=== PATIENT | male | born 1955 | race Caucasian/White ===

== ENCOUNTER → 2016-12-21 | Outpatient (CLI) | payer BC ==
[~2016-12-21] MED LIST: ASPEC81 PO; FLNIN NAE; METO25TA3 PO; NRV/10 PO; NTRGSL/4 UT; OMEP40CA PO; PANT40TA PO; RANI300T2 PO; ROSU40TA PO; VARD10TA PO
--- NOTE | 2016-12-21 12:00 | DIAGNOSTIC IMAGING REPORT ---
TESTICULAR ULTRASOUND HISTORY: Pain N50.819 Testicular [id number] COMPARISON: None. FINDINGS: Right testis: Maximum dimension 5.1 cm. Normal vascular flow. Small hydrocele. Several epididymal cysts measuring up to 9 mm. Left testis: Maximum dimension 5.0 cm. Uniform echogenicity. Normal vascular flow. Several slightly complex left epididymal cyst measuring up to 11 mm. IMPRESSION: 1. Normal testicular ultrasound. 2. Bilateral epididymal cysts measuring up to 11 mm. 3. Normal vascular flow is present in both testis Electronically signed by: Delvin Boone M.D. 12/21/2016 11:58 AM Dictated Date/Time: 12/21/2016 11:54 AM
== END | disposition home or self-care (01) ==
LOC: C.ULTR 10:58
PROVIDERS: ATTEND Nurse Practitioner Adult Health
DX: N50.819 Testicular pain, unspecified (principal); N50.3 Cyst of epididymis

== ENCOUNTER 2022-05-21 19:03 | Inpatient (IN) ==
[2022-05-21] MEDS ORDERED: ACETAMINOPHEN 500 MG TAB PO PRN (19:10)
--- NOTE | 2022-05-21 19:27 | XRay Report ---
XR chest 1V portable HISTORY: Fever COMPARISON: Chest 08/30/2021. FINDINGS: No pneumothorax. No pleural effusions. The lungs are clear. The cardiac silhouette is top n ormal in size. No evidence for pulmonary edema. No focal lung consolidations to suggest pneumonia. Th ere are old, healed left-sided rib fractures again noted. IMPRESSION: No acute process. ACT 112: Negative or not required by law. Electronically signed by: Candido Louie M.D. 05/21/2022 7:26 PM
[2022-05-21 19:56] LABS: Hematocrit (blood only) 42.3 % (40.1-51.0); Hemoglobin 14.7 g/dl (14.0-18.0); Mean Corpuscular Hemoglobin 29.7 pg (25.0-34.0); Mean Corpuscular Hgb Conc 34.8 g/dL (32.0-36.0); Mean Corpuscular Volume 85.5 fL (80.0-100.0); Mean Platelet Volume 11.6 fL (9.4-12.4); Platelet Count 231 K/uL (130-400); RDW Coefficient of Variation 12.8 % (11.5-14.5); RDW Standard Deviation 39.4 fL (36.4-46.3); Red Blood Count 4.95 M/uL (4.63-6.08); White Blood Count 22.35 K/ul (4.8-10.8)
--- NOTE | 2022-05-21 20:13 | Emergency Department Note ---
History of Present Illness General Chief complaint: Fever Stated complaint: FEVER, CHILLS, ACHES, FLANK PAIN Time Seen by Provider: 05/21/22 19:56 Source: patient Mode of arrival: ambulatory Limitations: no limitations History of Present Illness Maximum Pain Intensity: 8 THis is a 66 yo male who presents to the emergency room with complaints of abdominal pain, fevers and chilld. Patient states he had mild discomfort yesterday. Today he ate breakfast and then had more severe abdominal pain. He states worse pain the lower abdomen. He than became nauseated and vomited. Denies hematemesis. Then he developed chills with tremors. Brief episode of left sided chest pain that resolved spontaneously. states temp at home peaked at 103 F. No know sick contacts, no change in medications, no recent travel. No concern for food poisoning. Patient no prior similar episodes. He states he has had prior hernia surgery and episode of diverticulitis. Pt seen during a time of high acuity and national emergency pandemic while wearing PPE. Home Medications Medication Instructions Recorded Confirmed Type amlodipine 5 mg tablet 5 mg PO DAILY 05/21/22 05/22/22 History aspirin 81 mg tablet,delayed 162 mg PO DAILY 05/21/22 05/22/22 History release [id number] 250 1 tab PO Q6H PRN Migraine Headache 05/21/22 05/22/22 History mg-250 mg-65 mg tablet (Excedrin Migraine) baclofen 10 mg tablet 10 mg PO HS PRN Pain 05/21/22 05/22/22 History clopidogrel 75 mg tablet (Plavix) 75 mg PO DAILY 05/21/22 05/22/22 History cyclobenzaprine 10 mg tablet 10 mg PO BID PRN Muscle Spasm 05/21/22 05/22/22 H istory docusate sodium 100 mg tablet 100 mg PO QAM 05/21/22 05/22/22 History famotidine 20 mg tablet 20 mg PO BID 05/21/22 05/22/22 History fluticasone propionate 50 2 spray intranasal DAILY PRN 05/21/22 05/22/22 History mcg/actuation nasal allergies spray,suspension (Flonase Allergy Relief) losartan 25 mg tablet 25 mg PO DAILY 05/21/22 05/22/22 History metoprolol succinate 25 mg 12.5 mg PO QPM 05/21/22 05/22/22 History tablet,extended release 24 hr metoprolol succinate 25 mg 25 mg PO DAILY 05/21/22 05/22/22 History tablet,extended release 24 hr multivitamin 1 tab PO DAILY 05/21/22 05/22/22 History nitroglycerin 0.4 mg sublingual 0.4 mg sublingual DIRECTED 05/21/22 05/22/22 History tablet (Nitrostat) omega-3 fatty acids 1,000 mg 1,000 mg PO BID 05/21/22 05/22/22 History capsule ondansetron HCl 4 mg tablet 4 mg PO Q8H PRN Nausea 05/21/22 05/22/22 History pantoprazole 40 mg tablet,delayed 40 mg PO DAILY 05/21/22 05/22/22 History release rosuvastatin 40 mg tablet 40 mg PO DAILY 05/21/22 05/22/22 History sildenafil 50 mg tablet 50 mg PO DAILY PRN Before 05/21/22 05/22/22 History intercourse hydrochlorothiazide 25 mg tablet 25 mg PO DAILY 05/22/22 05/22/22 History azithromycin 500 mg tablet 500 mg PO DAILY #3 tabs 05/23/22 Rx (Zithromax) Allergies Allergy/AdvReac Type Severity Reaction Status Date / Time morphine Allergy Severe ILL Unverified 05/21/22 20:34 tetracycline Allergy Mild RASH Verified 05/21/22 20:34 codeine Allergy Unknown Unknown Verified 05/21/22 20:34 shrimp AdvReac Mild NECK Verified 05/21/22 20:34 SWELLS IF HE EATS ALOT OF THEM enalapril AdvReac Cough Verified 05/21/22 20:34 Past Med/Surg History Medical History (Updated 05/23/22 @ 18:34 by Tiff Bartholomew DO) Coronary artery disease Hyperlipidemia Hypertension Surgical History History of coronary artery stent placement Family History Other Family history non-contributory Social History Smoking Status: Never smoker Hx Alcohol Use: No Hx Substance Use: No Preferred Language: Polish Communication Ability: Effective Teacher Learning Disabled Required: No Beliefs That Will Affect Care: None Current Living Situation: Spouse Other Information That Helps Us Care for You: No Feels Safe at Home: Yes Safety Concerns: Feels Safe At This Time Assistive Devices: None Review of Systems A total of 10 systems reviewed and were otherwise negative All systems reviewed & are unremarkable except as noted in HPI & below Physical Exam Vital Signs Vital Signs - 24 hr 05/21/22 19:05 05/21/22 20:20 05/21/22 20:20 Temperature 38.0 C H Temperature Source Temporal Artery Scan Pulse Rate 111 H 90 Pulse Rate [Finger] 90 Pulse Rhythm Regular Pulse Rhythm [Finger] Regular Pulse Strength [Finger] Normal Respiratory Rate 18 18 16 Respiratory Effort / Characteristics Non-Labored Spontaneous Respiratory Depth Normal Normal Blood Pressure 118/72 Blood Pressure [Right Arm] Blood Pressure Mean 87 Blood Pressure Mean [Right Arm] Blood Pressure Position [Right Arm] Sitting Pulse Oximetry 93 94 94 Oxygen Delivery Method Room Air Room Air Room Air Sepsis Recent Fever Within 48 Hours Yes Sepsis New/Unexplained Change in Mental Status N/A Sepsis Action Taken by Nursing No Action Required 05/21/22 21:03 05/21/22 21:47 05/21/22 22:33 Temperature 37.1 C 37.1 C Temperature Source Oral Oral Pulse Rate Pulse Rate [Finger] 91 H 97 H 97 H Pulse Rhythm Pulse Rhythm [Finger] Regular Regular Regular Pulse Strength [Finger] Respiratory Rate 18 24 20 Respiratory Effort / Characteristics Respiratory Depth Normal Normal Normal Blood Pressure Blood Pressure [Right Arm] 135/80 135/80 115/76 Blood Pressure Mean Blood Pressure Mean [Right Arm] 98 98 89 Blood Pressure Position [Right Arm] Semi-fowlers Pulse Oximetry 95 93 98 Oxygen Delivery Method Room Air Room Air Room Air Sepsis Recent Fever Within 48 Hours Sepsis New/Unexplained Change in Mental Status Sepsis Action Taken by Nursing 05/21/22 23:16 Temperature Temperature Source Pulse Rate Pulse Rate [Finger] 94 H Pulse Rhythm Pulse Rhythm [Finger] Pulse Strength [Finger] Respiratory Rate 16 Respiratory Effort / Characteristics Respiratory Depth Blood Pressure Blood Pressure [Right Arm] 110/68 Blood Pressure Mean Blood Pressure Mean [Right Arm] 82 Blood Pressure Position [Right Arm] Pulse Oximetry 96 Oxygen Delivery Method Room Air Sepsis Recent Fever Within 48 Hours Sepsis New/Unexplained Change in Mental Status Sepsis Action Taken by Nursing GENERAL: alert, well appearing, well nourished, no distress, non-toxic EYE EXAM: normal conjunctiva, PERRL and EOM's grossly intact OROPHARYNX: no exudate, no erythema, lips, buccal mucosa, and tongue normal and mucous membranes are moist NECK: supple, no nuchal rigidity, no adenopathy, non-tender LUNGS: Clear to auscultation. Normal chest wall mechanics, no w/r/r HEART: no murmurs, S1 normal and S2 normal ABDOMEN: abdomen soft, non-tender, normo-active bowel sounds, no masses, no rebound or guarding. BACK: Back is symmetrical on inspection and there is no deformity, no midline tenderness, no CVA tenderness. SKIN: no rashes and no bruising UPPER EXTREMITIES: upper extremities are grossly normal. FROM, nml pulses b/l. LOWER EXTREMITIES: No pitting edema. FROM, nml pulses b/l. NEURO EXAM: Normal sensorium, cranial nerves II-XII grossly intact, normal speech, no gross weakness of arms, no gross weakness of legs. Gross sensation intact. Course Administered Medications Discontinued Medications Acetaminophen (Acetaminophen 500 Mg Tab) 1,000 mg PO ONCE PRN PRN Reason: Fever Stop: 06/20/22 19:09 Last Admin: 05/21/22 19:28 Dose: 1,000 mg Documented By: VICK Acetaminophen (Acetaminophen 325 Mg Tab) 650 mg PO Q4H PRN PRN Reason: Pain or Fever Stop: 06/21/22 04:50 Last Admin: 05/22/22 05:06 Dose: 650 mg Documented By: Desmond Amlodipine Besylate (Amlodipine Besylate 5 Mg Tab) 5 mg PO [facility] Stop: 06/21/22 08:59 Last Admin: 05/23/22 09:23 Dose: 5 mg Documented By: Admin: 05/22/22 09:20 Dose: 5 mg Documented By: KIMBERLY Aspirin (Aspirin 81 Mg Ectab) 162 mg PO [facility] Stop: 06/21/22 08:59 Last Admin: 05/23/22 09:24 Dose: 162 mg Documented By: Admin: 05/22/22 09:21 Dose: 162 mg Documented By: CRYSTAL Clopidogrel Bisulfate (Clopidogrel Bisulfate 75 Mg Tab) 75 mg PO [facility] Stop: 06/21/22 08:59 Last Admin: 05/23/22 09:24 Dose: 75 mg Documented By: Admin: 05/22/22 09:21 Dose: 75 mg Documented By: KIMBERLY Docusate Sodium (Docusate Sodium 100 Mg Cap) 100 mg PO BID [facility] Stop: 06/21/22 08:59 Last Admin: 05/23/22 09:24 Dose: 100 mg Documented By: Admin: 05/22/22 20:42 Dose: 100 mg Documented By: Admin: 05/22/22 09:20 Dose: 100 mg Documented By: KIMBERLY Docusate Sodium (Docusate Sodium 100 Mg Cap) 100 mg PO QAM [facility] Stop: 06/22/22 08:59 Last Admin: 05/23/22 09:25 Dose: Not Given Documented By: KIMBERLY Enoxaparin Sodium (Enoxaparin Inj 40 Mg/0.4 Ml Syr) 40 mg SQ Q24H [facility] Stop: 06/21/22 08:59 Last Admin: 05/22/22 09:23 Dose: 40 mg Documented By: KIMBERLY Heparin Sodium (Porcine) (Heparin Sod 5,000 Unit/0.5 Ml Vial) 5,000 units SQ Q8 [facility] Stop: 06/21/22 21:59 Last Admin: 05/23/22 06:44 Dose: 5,000 units Documented By: Admin: 05/22/22 20:42 Dose: 5,000 units Documented By: NANCY Sodium Chloride (Nss 1000ml) 1,000 mls @ 999 mls/hr IV .Q1H1M ONE Stop: 05/21/22 21:27 Last Infusion: 05/21/22 23:32 Dose: 0 mls/hr Documented By: Admin: 05/21/22 20:57 Dose: 999 mls/hr Documented By: VAP Piperacillin Sod/Tazobactam Sod (Zosyn) 4.5 gm in 120 mls @ 240 mls/hr IV NOW ONE Stop: 05/21/22 21:44 Last Infusion: 05/21/22 23:32 Dose: 0 mls/hr Documented By: Admin: 05/21/22 21:41 Dose: 240 mls/hr Documented By: VAP Acetaminophen (Ofirmev) 1,000 mg in 100 mls @ 400 mls/hr IV NOW STA Stop: 05/22/22 00:12 Last Infusion: 05/22/22 00:25 Dose: 0 mls/hr Documented By: Admin: 05/22/22 00:09 Dose: 400 mls/hr Documented By: AN Sodium Chloride (Nss 1000ml) 1,000 mls @ 125 mls/hr IV .Q8H [facility] Stop: 06/20/22 23:44 Last Infusion: 05/22/22 09:15 Dose: 0 mls/hr Documented By: Admin: 05/22/22 00:08 Dose: 125 mls/hr Documented By: AN Vancomycin HCl 1,750 mg/ (Sodium Chloride) 535 mls @ 200 mls/hr IV NOW ONE Stop: 05/22/22 04:40 Last Infusion: 05/22/22 07:05 Dose: 0 mls/hr Documented By: Admin: 05/22/22 02:42 Dose: 200 mls/hr Documented By: AN Piperacillin Sod/Tazobactam (Sod 4.5 gm/ Dextrose) 120 mls @ 28.75 mls/hr IV Q8H [facility]; Protocol Stop: 05/24/22 02:29 Last Infusion: 05/23/22 14:48 Dose: 0 mls/hr Documented By: [facility] Admin: 05/23/22 10:24 Dose: 28.8 mls/hr Documented By: [facility] Infusion: 05/23/22 07:17 Dose: 0 mls/hr Documented By: [facility] Admin: 05/23/22 02:51 Dose: 28.8 mls/hr Documented By: Infusion: 05/22/22 22:36 Dose: 0 mls/hr Documented By: Admin: 05/22/22 18:26 Dose: 28.8 mls/hr Documented By: [facility] Infusion: 05/22/22 15:14 Dose: 0 mls/hr Documented By: [facility] Admin: 05/22/22 11:02 Dose: 28.8 mls/hr Documented By: [facility] Infusion: 05/22/22 07:54 Dose: 0 mls/hr Documented By: [facility] Admin: 05/22/22 02:46 Dose: 28.8 mls/hr Documented By: AN Vancomycin HCl 1,250 mg/ (Sodium Chloride) 275 mls @ 200 mls/hr IV Q18H [facility] Stop: 05/24/22 11:59 Last Infusion: 05/22/22 13:56 Dose: 0 mls/hr Documented By: Admin: 05/22/22 12:28 Dose: 200 mls/hr Documented By: KIMBERLY Sodium Chloride (Nss 1000ml) 1,000 mls @ 125 mls/hr IV .Q8H [facility] Stop: 06/21/22 15:59 Last Infusion: 05/23/22 08:42 Dose: 0 mls/hr Documented By: Admin: 05/23/22 07:31 Dose: 125 mls/hr Documented By: Infusion: 05/23/22 07:31 Dose: 125 mls/hr Documented By: Admin: 05/22/22 23:32 Dose: 125 mls/hr Documented By: Infusion: 05/22/22 23:32 Dose: 125 mls/hr Documented By: Admin: 05/22/22 16:10 Dose: 125 mls/hr Documented By: KIMBERLY Ioversol (Optiray 300 500ml) 100 ml IV ONCE ONE Stop: 05/21/22 22:53 Last Admin: 05/21/22 22:52 Dose: 92 ml Documented By: JOSR Melatonin (Melatonin 3 Mg Tab) 9 mg PO HS PRN PRN Reason: Sleep Stop: 06/21/22 19:12 Last Admin: 05/22/22 22:29 Dose: 9 mg Documented By: NANCY Metoprolol Succinate (Metoprolol Succ 25mg Ext Rel Tab) 12.5 mg PO QPM [facility] Stop: 06/21/22 20:59 Last Admin: 05/22/22 20:42 Dose: 12.5 mg Documented By: NANCY Metoprolol Succinate (Metoprolol Succ 25mg Ext Rel Tab) 25 mg PO QAM [facility] Stop: 06/21/22 08:59 Last Admin: 05/23/22 09:25 Dose: Not Given Documented By: Admin: 05/22/22 09:22 Dose: Not Given Documented By: KIMBERLY Rosuvastatin Calcium (Rosuvastatin Calcium 20 Mg Tab) 40 mg PO QAM [facility] Stop: 06/21/22 08:59 Last Admin: 05/23/22 09:25 Dose: Not Given Documented By: Admin: 05/22/22 10:14 Dose: Not Given Documented By: KIMBERLY Medical Decision Making Differential Diagnosis Differential diagnoses includes but is not limited to gastritis, peptic ulcer disease, GERD, gallbladder disease, pancreatitis, small bowel obstruction, acute coronary syndrome, pericarditis, ischemic bowel, irritable bowel disease, irritable bowel syndrome, appendicitis, diverticulitis, malignancy, hernia, urinary tract infection, torsion, [/ectopic (if female)], perforation, trauma, infectious. Medical Records Attestation: I reviewed the patient's medical records. Home Medications Current Medication List: was personally reviewed by me Laboratory Data Attestation: I reviewed the patient's lab results. Result diagrams: 05/23/22 06:53 05/23/22 06:53 Lab Results 05/21/22 05/21/22 05/21/22 Range/Units 19:29 19:39 19:39 WBC 22.35 H (4.8-10.8) K/ul RBC 4.95 (4.63-6.08) M/uL Hgb 14.7 (14.0-18.0) g/dl Hct 42.3 (40.1-51.0) % MCV 85.5 (80.0-100.0) fL MCH 29.7 (25.0-34.0) pg MCHC 34.8 (32.0-36.0) g/dL RDW Std Deviation 39.4 (36.4-46.3) fL RDW Coeff of Mary 12.8 (11.5-14.5) % Plt Count 231 (130-400) K/uL MPV 11.6 (9.4-12.4) fL Immature Gran % (Auto) 0.4 % Neut % (Auto) 89.9 % Lymph % (Auto) 2.4 % Sunflower % (Auto) 6.8 % Eos % (Auto) 0.2 % Baso % (Auto) 0.3 % Neut # (Auto) 20.09 H (1.4-6.5) K/uL Lymph # (Auto) 0.54 L (1.2-3.4) K/uL Sunflower # (Auto) 1.52 H (0.24-0.82) K/uL Eos # (Auto) 0.04 (0-0.50) K/uL Baso # (Auto) 0.06 (0-0.2) K/uL Immature Gran # (Auto) 0.10 H (0.00-0.02) K/uL Sodium 135 L (136-145) mmol/L Potassium 3.6 (3.5-5.1) mmol/L Chloride 100 (98-107) mmol/L Carbon Dioxide 24 (21-32) mmol/L Anion Gap 11 (3-11) BUN 33 H (6-23) mg/dl Creatinine 1.39 (0.6-1.4) mg/dl Est Cr Clr Drug Dosing 57.5 ml/min Est GFR ( Amer) 59.9 ml/min Est GFR (Non-Af Amer) 51.7 ml/min BUN/Creatinine Ratio 23.7 H (10-20) Glucose 101 H (70-99(Fasting)) mg/dl Lactate (0.4-2.0) mmol/L Calcium 9.4 (8.5-10.1) mg/dl Total Bilirubin 0.9 (0.2-1.0) mg/dl AST 23 (13-39) U/L ALT 23 (7-52) U/L Alkaline Phosphatase 65 (34-104) U/L Total Protein 7.1 (6.0-8.3) gm/dl Albumin 4.5 (3.4-5.0) gm/dl Globulin 2.6 (2.5-4.0) gm/dl Albumin/Globulin Ratio 1.7 (0.9-2) Lipase (11-82) U/L Procalcitonin (0-0.5) ng/ml SARS-CoV-2 (PCR) NEGATIVE (Negative) Influenza Type A (PCR) Negative (Neg) Influenza Type B (PCR) Negative (Neg) RSV (RT-PCR) Negative (Neg) 05/21/22 05/21/22 05/21/22 Range/Units 19:39 19:39 21:13 WBC (4.8-10.8) K/ul RBC (4.63-6.08) M/uL Hgb (14.0-18.0) g/dl Hct (40.1-51.0) % MCV (80.0-100.0) fL MCH (25.0-34.0) pg MCHC (32.0-36.0) g/dL RDW Std Deviation (36.4-46.3) fL RDW Coeff of Mary (11.5-14.5) % Plt Count (130-400) K/uL MPV (9.4-12.4) fL Immature Gran % (Auto) % Neut % (Auto) % Lymph % (Auto) % Sunflower % (Auto) % Eos % (Auto) % Baso % (Auto) % Neut # (Auto) (1.4-6.5) K/uL Lymph # (Auto) (1.2-3.4) K/uL Sunflower # (Auto) (0.24-0.82) K/uL Eos # (Auto) (0-0.50) K/uL Baso # (Auto) (0-0.2) K/uL Immature Gran # (Auto) (0.00-0.02) K/uL Sodium (136-145) mmol/L Potassium (3.5-5.1) mmol/L Chloride (98-107) mmol/L Carbon Dioxide (21-32) mmol/L Anion Gap (3-11) BUN (6-23) mg/dl Creatinine (0.6-1.4) mg/dl Est Cr Clr Drug Dosing ml/min Est GFR ( Amer) ml/min Est GFR (Non-Af Amer) ml/min BUN/Creatinine Ratio (10-20) Glucose (70-99(Fasting)) mg/dl Lactate 0.9 (0.4-2.0) mmol/L Calcium (8.5-10.1) mg/dl Total Bilirubin (0.2-1.0) mg/dl AST (13-39) U/L ALT (7-52) U/L Alkaline Phosphatase (34-104) U/L Total Protein (6.0-8.3) gm/dl Albumin (3.4-5.0) gm/dl Globulin (2.5-4.0) gm/dl Albumin/Globulin Ratio (0.9-2) Lipase 36 (11-82) U/L Procalcitonin 0.63 H (0-0.5) ng/ml SARS-CoV-2 (PCR) (Negative) Influenza Type A (PCR) (Neg) Influenza Type B (PCR) (Neg) RSV (RT-PCR) (Neg) Imaging Data Radiologist's Impression: Chest X-Ray 05/21/22 19:11 XR chest 1V portable HISTORY: Fever COMPARISON: Chest 08/30/2021. FINDINGS: No pneumothorax. No pleural effusions. The lungs are clear. The cardiac silhouette is top normal in size. No evidence for pulmonary edema. No focal lung consolidations to suggest pneumonia. There are old, healed left-sided rib fractures again noted. IMPRESSION: No acute process. ACT 112: Negative or not required by law. Electronically signed by: Candido Louie M.D. 05/21/2022 7:[address] abdomen and pelvis with contrast: Mild bilateral lower lobe atelectasis. Normal cardiac size with coronary artery calcifications. Normal liver, gallbladder and biliary system. Normal pancreas, spleen and bilateral adrenal glands. Multiple bilateral simple renal cysts, largest on the right measuring 4.3 cm in maximum dimension and largest on the left measuring 4.5 cm. Otherwise unremarkable bilateral kidneys. Atherosclerotic disease of aorta with no aneurysm. Unremarkable stomach and small bowel. Normal appendix. Moderate to abundant fecal deep within the colon, cannot do so mild constipation. No bowel obstruction. Unremarkable urinary bladder. Mild prostate enlargement. No free fluid. Degenerative disease of the spine. Radiologist: Sudha Kaur MD ECG Data Attestation: I personally reviewed and interpreted this ECG as follows: Indication: + abdominal pain Rate (beats per minute): 99 Rhythm: + normal sinus ECG Intervals/blocks: + Normal QRS and + Normal QT ECG [place]: + Normal ECG ST segments: + Nonspecific ST abnormalities MDM Narrative An order was placed for continuous cardiac monitoring. The monitor shows a rate of __88_ with _normal sinus__ rhythm. This is a 84 yo male who presents with abdominal pain, fevers, rigors and vomiting. Labs sent initially by nursing staff per protocol. After my evaluation I added additional and we discussed imaging. There was some delay in patient going to CT as he presented on a day of high volume. VS stable. Fever improved with tylenol. Significant leukocytosis noted, so patient given zosyn empirically while awaiting CT. Procal also elevated. CT read by overnight rad without acute infectious/inflammatory condition. Given abnormalities on labs and concerning evolution of symptoms, case discussed with hospitalist for additional evaluation and treatment. Impression & Plan Abdominal pain, Leukocytosis, Fever, Elevated procalcitonin Discharge Plan Visit Data Chief Complaint: Fever Stated Complaint: FEVER, CHILLS, ACHES, FLANK PAIN ED Provider: Tiff Bartholomew Discharge Problem: Abdominal pain, Leukocytosis, Fever, Elevated procalcitonin Patient Disposition: Admitted As Inpatient Discharge Instructions Interventions: ED Discharge Assessment Last Done: 05/22/22 03:56
[2022-05-21 20:15] LABS: Basophils # (auto) 0.06 K/uL (0-0.2); Basophils % (auto) 0.3 %; Eosinophils # (auto) 0.04 K/uL (0-0.50); Eosinophils % (auto) 0.2 %; Immature Granulocytes % (auto) 0.4 %; Lymphocytes # (auto) 0.54 K/uL (1.2-3.4); Lymphocytes % (auto) 2.4 %; Monocytes # (auto) 1.52 K/uL (0.24-0.82); Monocytes % (auto) 6.8 %; Neutrophils # (auto) 20.09 K/uL (1.4-6.5); Neutrophils % (auto) 89.9 %
[2022-05-21 20:19] LABS: Albumin Globulin Ratio 1.7 (0.9-2); Albumin Level 4.5 gm/dl (3.4-5.0); BUN Creatinine Ratio 23.7 (10-20); Bilirubin,Total 0.9 mg/dl (0.2-1.0); Calcium 9.4 mg/dl (8.5-10.1); Creatinine Clr Calc Pharmacy 57.5 ml/min; Est GFR (African American) 59.9 ml/min; Est GFR (Non-African American) 51.7 ml/min; Globulin 2.6 gm/dl (2.5-4.0); Potassium 3.6 mmol/L (3.5-5.1); Total Protein 7.1 gm/dl (6.0-8.3)
[2022-05-21] MEDS ORDERED: SODIUM CHLORIDE 0.9% 1000ML 1,000 ML IV ONE (20:27)
[2022-05-21 20:41] LABS: Influenza A virus by PCR Negative (Neg); Influenza B virus by PCR Negative (Neg); RSV by PCR Negative (Neg); SARS CoV2 RNA(COVID-19) InHosp NEGATIVE (Negative)
[2022-05-21] MEDS ORDERED: PIPERACILLIN/TAZOBACTAM 4.5 GM/120 ML BAG IV ONE (21:15)
[2022-05-21] MEDS ORDERED: OPTIRAY 300 500mL IV ONE (22:52)
[2022-05-21] MEDS ORDERED: SODIUM CHLORIDE 0.9% 1000ML 1,000 ML IV SCH (23:45)
[2022-05-21] MEDS ORDERED: ACETAMINOPHEN 1,000 MG/100 ML VIAL IV STA (23:58)
[2022-05-22] MEDS ORDERED: POLYETHYLENE (MIRALAX) 17 GM PACK PO PRN (01:33)
[2022-05-22] MEDS ORDERED: NITROGLYCERIN SL 0.4 MG/TAB TAB SL PRN (01:36)
[2022-05-22] MEDS ORDERED: VANCOMYCIN CONSULT ACTIVE PRN (01:39)
[2022-05-22] MEDS ORDERED: VANCOMYCIN HCL 1,750 MG in SODIUM CHLORIDE 0.9% 500 ML IV ONE (02:00)
[2022-05-22] MEDS ORDERED: PIPERACILLIN/TAZOBACTAM 3.375 GM in DEXTROSE 5% 100 ML IV SCH (02:00)
--- NOTE | 2022-05-22 02:22 | History & Physical Report ---
Date of Service May 22, 2022 Assessment & Plan (1) Sepsis: Plan: - patient with fever to 38C, WBC 22, PCT 0.64, HR 90s - reports decreased appetite, rigors, fevers, fatigue - unclear source at this time - CXR unremarkable, no urinary, pulmonary, GI symptoms besides one episode of vomiting and abdominal pain - dehydrated on exam - lactic acid 0.9 - blood cultures sent - UA pending - s/p zosyn in ED - continue empiric abx with vancomycin and zosyn for now pending cultures - trend fever curve (2) Leukocytosis: Plan: - likely from infection in the setting of fever as above - management as above - trend for now (3) CAD S/P percutaneous coronary angioplasty: Plan: - stable angina - has exertional angina at times relieved by SL Nitro - follows with cardiology - continue ASA, plavix, statin - not current with chest pain (4) HTN (hypertension): Plan: - continue home medications Plan DVT ppx: lovenox Code Status: Full Code Dispo: med/surg Inocencio Jeffries MD Hospital Medicine Admission and Anticipated Discharge Date Admission Date: 05/22/2022 History of Present Illness Chief Complaint: fever Primary Care Provider: Sabino Izaguirre MD The patient is a 66 year old man with pmh CAD s/p stents x2 (~2011), HTN, HLD who presented with 1 day of fevers and rigors with abdominal pain. He reports that he started having crampy abdominal pain about 2-3 days ago. He then de veloped fever and rigors the day of presentation. He was noted to also have had one episode of vomiting the day of admission. He denies any blood in his vomit, he denies diarrhea, cough, shortness of breath, chest pain, sore throat, congestion, wounds, rashes, dysuria, frequency. The abdominal pain is diffuse but mostly concentrated in the lower quandrants. Not affected by BMs. Normal functional status is good, works around his house. 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 In the ED, vitals were significant for temp to 38C, HR 90s. Labs were significant for WBC 22,PCT 0.63, lactic acid 0.9. CXR was unrevealing, CT-AP was also unremarkable on prelim read. Blood cultures were drawn, he was given a dose of zosyn and IVF and admitted to medicine. Allergies Allergy/AdvReac Type Severity Reaction Status Date / Time morphine Allergy Severe ILL Unverified 05/21/22 20:34 tetracycline Allergy Mild RASH Verified 05/21/22 20:34 codeine Allergy Unknown Unknown Verified 05/21/22 20:34 shrimp AdvReac Mild NECK Verified 05/21/22 20:34 SWELLS IF HE EATS ALOT OF THEM enalapril AdvReac Cough Verified 05/21/22 20:34 Home Medications Medication Instructions Recorded Confirmed Type amlodipine 5 mg tablet 5 mg PO DAILY 05/21/22 05/21/22 History aspirin 81 mg tablet,delayed 162 mg PO DAILY 05/21/22 05/21/22 History release ovndunp-vismhgcwfjjup-stxhbatf 250 1 tab PO Q6H PRN Migraine Headache 05/21/22 05/21/22 History mg-250 mg-65 mg tablet (Excedrin Migraine) baclofen 10 mg tablet 10 mg PO HS 05/21/22 05/21/22 History clopidogrel 75 mg tablet (Plavix) 75 mg PO DAILY 05/21/22 05/21/22 History cyclobenzaprine 10 mg tablet 10 mg PO BID PRN Muscle Spasm 05/21/22 05/21/22 History docusate sodium 100 mg tablet 100 mg PO QAM 05/21/22 05/21/22 History famotidine 20 mg tablet 20 mg PO BID 05/21/22 05/21/22 History fluticasone propionate 50 2 spray intranasal DAILY PRN 05/21/22 05/21/22 History mcg/actuation nasal allergies spray,suspension (Flonase Allergy Relief) losartan 25 mg tablet 25 mg PO DAILY 05/21/22 05/21/22 History metoprolol succinate 25 mg 12.5 mg PO QPM 05/21/22 05/21/22 History tablet,extended release 24 hr metoprolol succinate 25 mg 25 mg PO DAILY 05/21/22 05/21/22 History tablet,extended release 24 hr multivitamin 1 tab PO DAILY 05/21/22 05/21/22 History nitroglycerin 0.4 mg sublingual 0.4 mg sublingual DIRECTED 05/21/22 05/21/22 History tablet (Nitrostat) omega-3 fatty acids 1,000 mg 1,000 mg PO BID 05/21/22 05/21/22 History capsule ondansetron HCl 4 mg tablet 4 mg PO Q8H PRN Nausea 05/21/22 05/21/22 History pantoprazole 40 mg tablet,delayed 40 mg PO DAILY 05/21/22 05/21/22 History release rosuvastatin 40 mg tablet 40 mg PO DAILY 05/21/22 05/21/22 History sildenafil 50 mg tablet 50 mg PO DAILY PRN Before 05/21/22 05/21/22 History intercourse Past Med/Surg History Medical History Coronary artery disease Hyperlipidemia Hypertension Surgical History History of coronary artery stent placement Family History Other Family history non-contributory Social History Smoking Status: Never smoker Preferred Language: Mohawk Feels Safe at Home: Yes Review of Systems Review of Systems: All systems reviewed & are unremarkable except as noted in Subjective Physical Exam Constitutional: WD/WN, vitals as above no acute distress Eyes: PERRL, conjunctivae normal, anicteric sclerae ENMT: Nose: no external nose abnormality, no nasal discharge and no sinus tenderness Mouth: + dry oral mucous membranes Neck: trachea midline, no thyromegaly Respiratory: normal respiratory effort, lungs clear to auscultation Cardiovascular: RRR, no murmur, no edema Gastrointestinal (Abdomen): Inspection/Auscultation: + abdomen distended and normal bowel sounds Percussion/Palpation: + abdomen tender (diffusely, mostly Lower quadrants - mild) and abdomen soft; no guarding and abdomen not rigid Musculoskeletal: no cyanosis or clubbing, extremities motor strength 5/5 Skin: no rashes, warm and dry Neurologic: patellar DTR's 2+ bilat, sensation intact and PERRL, EOMI, accommodation nl, no face palsy, no dysarthria Psychiatric: A+Ox3, euthymic affect Results & Data Results & Data ([facility]) Vital Signs (Past 12 Hours) Vital Signs Temp Pulse Pulse Resp BP BP Pulse Ox 05/22/22 01:00 68 16 121/61 92 09/01/22 23:16 94 H 16 110/68 96 05/21/22 22:33 37.1 C 97 H 20 115/76 98 05/21/22 21:47 97 H 24 135/80 93 05/21/22 21:03 37.1 C 91 H 18 135/80 95 05/21/22 20:20 90 16 94 05/21/22 20:20 90 18 94 05/21/22 19:05 38.0 C H 111 H 18 118/72 93 O2 Del Method 05/22/22 01:00 Room Air 05/21/22 23:16 Room Air 05/21/22 22:33 Room Air 05/21/22 21:47 Room Air 05/21/22 21:03 Room Air 05/21/22 20:20 Room Air 05/21/22 20:20 Room Air 05/21/22 19:05 Room Air Laboratory Results Short CBC 05/21/22 Range/Units 19:39 WBC 22.35 H (4.8-10.8) K/ul Hgb 14.7 (14.0-18.0) g/dl Hct 42.3 (40.1-51.0) % Plt Count 231 (130-400) K/uL BMP 05/21/22 19:39 Sodium 135 L Potassium 3.6 Chloride 100 Carbon Dioxide 24 BUN 33 H Creatinine 1.39 Glucose 101 H Calcium 9.4 Liver Function 05/21/22 Range/Units 19:39 Total Bilirubin 0.9 (0.2-1.0) mg/dl AST 23 (13-39) U/L ALT 23 (7-52) U/L Alkaline Phosphatase 65 (34-104) U/L Albumin 4.5 (3.4-5.0) gm/dl Diagnostic Findings Chest X-Ray 05/21/22 19:11 XR chest 1V portable HISTORY: Fever COMPARISON: Chest 08/30/2021. FINDINGS: No pneumothorax. No pleural effusions. The lungs are clear. The cardiac silhouette is top normal in size. No evidence for pulmonary edema. No focal lung consolidations to suggest pneumonia. There are old, healed left-sided rib fractures again noted. IMPRESSION: No acute process. ACT 112: Negative or not required by law. Electronically signed by: Candido Louie M.D. 05/21/2022 7:26 PM Medications Administered Current Inpatient Medications Amlodipine Besylate (Amlodipine Besylate 5 Mg Tab) 5 mg PO QAM [facility] Stop: 06/21/22 08:59 Aspirin (Aspirin 81 Mg Ectab) 162 mg PO QAM [facility] Stop: 06/21/22 08:59 Clopidogrel Bisulfate (Clopidogrel Bisulfate 75 Mg Tab) 75 mg PO QAM [facility] Stop: 06/21/22 08:59 Docusate Sodium (Docusate Sodium 100 Mg Cap) 100 mg PO BID [facility] Stop: 06/21/22 08:59 Enoxaparin Sodium (Enoxaparin Inj 40 Mg/0.4 Ml Syr) 40 mg SQ Q24H [facility] Stop: 06/21/22 08:59 Sodium Chloride (Nss 1000ml) 1,000 mls @ 125 mls/hr IV .Q8H [facility] Stop: 06/20/22 23:44 Last Admin: 05/22/22 00:08 Dose: 125 mls/hr Vancomycin HCl 1,750 mg/ (Sodium Chloride) 535 mls @ 200 mls/hr IV NOW ONE Stop: 05/22/22 04:40 Piperacillin Sod/Tazobactam (Sod 4.5 gm/ Dextrose) 120 mls @ 28.75 mls/hr IV Q8H [facility]; Protocol Stop: 05/24/22 02:29 Metoprolol Succinate (Metoprolol Succ 25mg Ext Rel Tab) 12.5 mg PO QPM [facility] Stop: 06/21/22 20:59 Metoprolol Succinate (Metoprolol Succ 25mg Ext Rel Tab) [facility]: 06/21/22 08:59 Miscellaneous Information (Vancomycin Consult Active) 1 each N/A UD PRN PRN Reason: Consult Stop: 06/21/22 01:38 Nitroglycerin (Nitroglycerin Sl 0.4 Mg/Tab Tab) 0.4 mg SL PRN PRN PRN Reason: chest pain Stop: 06/21/22 01:35 Polyethylene Glycol (Polyethylene (Miralax) 17 Gm Pack) 17 gm PO DAILY PRN PRN Reason: Constipation Stop: 06/21/22 01:32 Rosuvastatin Calcium (Rosuvastatin Calcium 20 Mg Tab) 40 mg PO QAM [facility] Stop: 06/21/22 08:59 Code Status & VTE Plan Code Status Full Code VTE Prophylaxis Plan VTE Prophylaxis will be ordered: Yes
[2022-05-22] MEDS: PIPERACILLIN/TAZOBACTAM 4.5 GM in DEXTROSE 5% 100 ML IV SCH ×3 (02:46→18:26)
[2022-05-22 03:07] LABS: Appearance Urine Clear (Clear); Bilirubin Urine Negative (Negative); Blood Urine Negative (Negative); Color Urine Yellow; Glucose Urine UA Negative (Negative); Ketones Urine Negative (Negative); Leukocyte Esterase Urine Negative (Negative); Nitrite Urine Negative (Negative); Protein Urine Negative (Negative); Specific Gravity Urine > 1.045 (1.000-1.030); Urobilinogen Urine Negative (Negative)
[2022-05-22] MEDS ORDERED: ACETAMINOPHEN 325 MG TAB PO PRN (04:51)
[2022-05-22 08:00] LABS: Albumin Globulin Ratio 1.7 (0.9-2); Albumin Level 3.5 gm/dl (3.4-5.0); Bilirubin,Total 0.8 mg/dl (0.2-1.0); Calcium 7.8 mg/dl (8.5-10.1); Creatinine Clr Calc Pharmacy 56.1 ml/min; Est GFR (African American) 57.9 ml/min; Globulin 2.1 gm/dl (2.5-4.0); Magnesium 1.8 mg/dl (1.7-2.4); Potassium 3.6 mmol/L (3.5-5.1); Total Protein 5.6 gm/dl (6.0-8.3)
--- NOTE | 2022-05-22 08:27 | CT Scan Report ---
CT OF THE ABDOMEN AND PELVIS WITH CONTRAST CLINICAL HISTORY: Lower abdominal pain. Fever. COMPARISON STUDY: Renal ultrasound May 31, 2006. TECHNIQUE: Following IV administration of 92 mL of Optiray, axial images of the abdomen and pelvis we re obtained from the lung bases to the proximal femurs. Images were reviewed in the axial, sagittal, and coronal planes. IV contrast was administered without complication. Automated exposure control wa s utilized for the study. A dose lowering technique was utilized adhering to the principles of ALARA . CT DOSE: 618.65 mGy.cm FINDINGS: Several small left lower lobe pulmonary nodules are likely benign. No pneumatosis, free air or portal venous gas is present. No hepatic lesions are identified. There is no biliary or pancreati c ductal dilatation. Spleen, adrenal glands and pancreas are unremarkable. There are numerous water a ttenuation bilateral renal lesions. These reflect cysts. Several subcentimeter renal lesions are too small to characterize. There is no hydronephrosis. Punctate left renal calculus is noted. There are n o ureteral calculi. Infrarenal abdominal aorta is ectatic, measuring 2.5 cm in caliber. No lymphadeno rome. No evidence for acute appendicitis. Caliber and wall thickness of small and large bowel are no rmal. There is no evidence for a bowel obstruction. Colonic diverticulosis is noted without evidence for acute diverticulitis. Prostate is mildly enlarged. No acute fracture or suspicious lesion within the visualized skeletal structures. IMPRESSION: 1. No acute process within the abdomen or pelvis. 2. No bowel obstruction. No bowel wall thickening. No evidence for acute appendicitis. 3. Numerous bilateral renal cysts. Several subcentimeter renal lesions which are too small to charact erize. 4. Mildly enlarged prostate. 5. Colonic diverticulosis. No evidence for acute diverticulitis. ACT 112: Negative or not required by law. Electronically signed by: Peter Nicole M.D. 05/22/2022 8:25 AM
[2022-05-22] MEDS ORDERED: ENOXAPARIN INJ 40 MG/0.4 ML SYR SQ SCH (09:00)
[2022-05-22 09:17] LABS: Hematocrit (blood only) 35.6 % (40.1-51.0); Hemoglobin 12.1 g/dl (14.0-18.0); Mean Corpuscular Hemoglobin 29.7 pg (25.0-34.0); Mean Corpuscular Volume 87.3 fL (80.0-100.0); Mean Platelet Volume 12.1 fL (9.4-12.4); Platelet Count 182 K/uL (130-400); RDW Coefficient of Variation 13.1 % (11.5-14.5); RDW Standard Deviation 41.1 fL (36.4-46.3); Red Blood Count 4.08 M/uL (4.63-6.08); White Blood Count 11.86 K/ul (4.8-10.8)
[2022-05-22] MEDS: amLODIPine BESYLATE 5 MG TAB PO SCH (09:20)
[2022-05-22] MEDS: DOCUSATE SODIUM 100 MG CAP PO SCH ×2 (09:20→20:42)
--- NOTE | 2022-05-22 09:20 | Pharmacy Report ---
Pharmacy PK ABX Note - Date of Service May 22, 2022 - Assessment and Plan Assessment 66 year old M receiving IV Vancomycin + Zosyn for empiric treatment of sepsis of unknown source, CXR unremarkable, no urinary, pulmonary, GI symptoms besides one episode of vomiting and abdominal pain. Febrile yesterday, 38C, WBC 22, HR 90s, Procal 0.63, Lactate 0.9. Blood cultures pending. Plan Vancomycin * Loading dose: 1750 mg IV x 1 * Maintenance dose: 1250 mg IV every 18 hours * Regimen is predicted to achieve target AUC/TRE of 400-600 mg/L.hr * Trough level to be ordered if therapy extends beyond 48 hours Zosyn 4.5g IV Q8H for CrCl > 20ml/min Pharmacy will continue to follow and will adjust dose/frequency as necessary. Thank you. Pharmacy has transitioned to AUC monitoring for vancomycin. AUC/TRE is the preferred PK/PD target and is associated with decreased risk of nephrotoxicity compared to traditional trough targets.
[2022-05-22] MEDS: ASPIRIN 81 MG ECTAB PO SCH (09:21)
[2022-05-22] MEDS: CLOPIDOGREL BISULFATE 75 MG TAB PO SCH (09:21)
[2022-05-22] MEDS: METOPROLOL SUCC 25MG EXT REL TAB PO SCH (09:22)
[2022-05-22] MEDS: ROSUVASTATIN CALCIUM 20 MG TAB PO SCH (10:14)
[2022-05-22] MEDS ORDERED: VANCOMYCIN HCL 1,250 MG in SODIUM CHLORIDE 0.9% 250 ML IV SCH (12:00)
[2022-05-22 13:19] LABS: Lyme Ab IgG w/WB Rflx Negative (Negative)
[2022-05-22 13:20] LABS: Lyme Ab IgM w/WB Rflx Negative (Negative)
[2022-05-22 13:32] LABS: Influenza A virus by PCR Negative (Neg); Influenza B virus by PCR Negative (Neg); RSV by PCR Negative (Neg); SARS CoV2 RNA(COVID-19) InHosp NEGATIVE (Negative)
[2022-05-22 13:49] LABS: Adenovirus F 40/41 PCR Not Detected (NotDetected); Astrovirus PCR Not Detected (NotDetected); Campylobacter PCR Not Detected (NotDetected); Clostridium diff Toxin A/B PCR Not Detected (NotDetected); Cryptosporidium PCR Not Detected (NotDetected); Cyclospora cayetanensis PCR Not Detected (NotDetected); Entamoeba histolytica PCR Not Detected (NotDetected); Enteroaggregative E.coli(EAEC) Not Detected (NotDetected); Enterotoxigenic E.coli (ETEC) Not Detected (NotDetected); Giardia lamblia PCR Not Detected (NotDetected); Norovirus GI/GII PCR Not Detected (NotDetected); Plesiomonas shigelloides PCR Not Detected (NotDetected); Rotavirus A PCR Not Detected (NotDetected); Salmonella PCR Not Detected (NotDetected); Sapovirus PCR Not Detected (NotDetected); Shiga-like Toxin E.coli (STEC) Not Detected (NotDetected); Shigella/Enteroinvasive E.coli Not Detected (NotDetected); Vibrio cholerae PCR Not Detected (NotDetected); Vibrio species PCR Not Detected (NotDetected); Yersinia enterocolitica PCR Not Detected (NotDetected)
[2022-05-22 13:59] LABS: Enteropathogenic E.coli (EPEC) DETECTED (NotDetected)
--- NOTE | 2022-05-22 14:24 | Hospitalist Progress Note ---
Date of Service May 22, 2022 Assessment & Plan (1) Sepsis: (2) E coli infection: Plan: Patient with fever to 38C, WBC 22, PCT 0.64, HR 90s Reports decreased appetite, rigors, fevers, fatigue Has been receiving IV fluids and empiric Zosyn and Vanco with significant clinical improvement Work up - CXR unremarkable, no urinary, pulmonary, GI symptoms besides one episode of vomiting and abdominal pain. CT abd/pelvis with no acute process within the abdomen or pelvis. Lyme serology negative, covid flu and RSV PCR negative Stool culture positive for enteropathogenic E coli Discontinued Vancomycin. Repeating BMP to assess renal function. Continue Zosyn for now while awaiting cultures, plan to transition to Azithromycin 500mg PO x 3 days Follow blood culture (3) Leukocytosis: Plan: - likely from infection in the setting of fever as above - management as above - downtrending from 22 -> 11.86 (4) CAD S/P percutaneous coronary angioplasty: Plan: - stable angina - has exertional angina at times relieved by SL Nitro - follows with cardiology - continue ASA, plavix, statin - not current with chest pain (5) HTN (hypertension): Plan: - continue home medications (6) CKD (chronic kidney disease), stage III: Plan: Baseline Cr ~ 1.20-1.4, worsened to 1.5 today likely in setting of vanco/zosyn antibiotic combination. Discontinued Vanco, holding losartan for now. Continue gentle fluids, repeat BMP tomorrow Plan DVT ppx: SQ heparin Code Status: Full Code Dispo: med/surg Updated at bedside this afternoon. Patient seen in collaboration with Dr. Burnette. Please see addendum. Admission and Anticipated Discharge Date Admission Date: May 22, 2022 Supervising Physician Co-Signing Physician Notes Patient seen and examined by me, care coordinated with Thuy Clay PA-C, please refer to her note above for further detail. Patient presented with fever, elevated white blood cell count at 22,000 last night, abdominal pain, episode of vomiting. Currently feels much better, reports some tenderness at left lower quadrant, and bloating, however overall improved. Started on empiric antibiotics at night, Vanco and Zosyn. Stool culture positive for enteropathogenic E. coli. Blood cultures pending. Urine unremarkable, chest x-ray unremarkable. Physical exam as above. Currently patient is afebrile and WBC down to 11,000. Likely will discharge patient tomorrow, on p.o. antibiotics, if blood cultures negative, patient remains afebrile, and feels well. MD Vasile Subjective Patient seen and examined in 384-2 in follow-up for sepsis with unknown source. Had a fever last night at 7 PM but has been afebrile since then. No recurrent nausea or vomiting. Has left lower abdominal pain and bloating. No diarrhea. No melena or hematochezia. Denies any fever, chills, congestion or headache. No chest pain or shortness of breath. No hematuria or dysuria. Endorses recent sick contacts with grandchildren. No rash, open wounds or tick bites. No recent URIs that he is aware of. Review of Systems Review of Systems: At least ten systems reviewed and negative except as noted in the HPI. Physical Exam Physical Exam: Gen: WD/WN, NAD, sitting in bed, A&Ox3 HEENT: Normocephalic, atraumatic, conjunctivae moist, sclerae anicteric, mucous membranes moist Lung: Clear to Auscultation bilaterally, no wheezes/rales/rhonchi Heart: Regular rate, regular rhythm, no murmurs, rubs, or gallops Abdomen: Soft, mild LLQ TTP, ND +BS x 4 Extremities: no edema Skin: Warm, no rash Results & Data Results & Data ([facility]) Vital Signs (Past 12 Hours) Vital Signs Temp Pulse Resp BP BP Pulse Ox O2 Del Method 05/22/22 09:18 53 L 122/74 05/22/22 07:57 36.4 C L 53 L 16 116/69 98 Room Air 05/22/22 04:15 36.8 C 65 16 107/68 96 Room Air 05/22/22 04:12 36.8 C 86 16 120/69 94 Room Air 05/22/22 02:30 62 20 107/68 94 Room Air Laboratory Results Short CBC 05/21/22 05/22/22 Range/Units 19:39 07:09 WBC 22.35 H 11.86 H D (4.8-10.8) K/ul Hgb 14.7 12.1 L (14.0-18.0) g/dl Hct 42.3 35.6 L (40.1-51.0) % Plt Count 231 182 (130-400) K/uL BMP 05/21/22 05/22/22 05/22/22 19:39 07:09 14:33 Sodium 135 L 137 139 Potassium 3.6 3.6 3.6 Chloride 100 105 105 Carbon Dioxide 24 27 29 BUN 33 H 30 H 28 H Creatinine 1.39 1.43 H 1.54 H Glucose 101 H 95 95 Calcium 9.4 7.8 L 8.2 L Liver Function 05/21/22 05/22/22 Range/Units 19:39 07:09 Total Bilirubin 0.9 0.8 (0.2-1.0) mg/dl AST 23 16 (13-39) U/L ALT 23 16 (7-52) U/L Alkaline Phosphatase 65 48 (34-104) U/L Albumin 4.5 3.5 (3.4-5.0) gm/dl Urine 05/22/22 Range/Units 02:30 Urine Color Yellow Urine Appearance Clear (Clear) Urine pH 5.0 (4.5-7.5) Ur Specific [place] > 1.045 H (1.000-1.030) Urine Protein Negative (Negative) Urine Glucose (UA) Negative (Negative) Diagnostic Findings Chest X-Ray 05/21/22 19:11 XR chest 1V portable HISTORY: Fever COMPARISON: Chest 08/30/2021. FINDINGS: No pneumothorax. No pleural effusions. The lungs are clear. The cardiac silhouette is top normal in size. No evidence for pulmonary edema. No focal lung consolidations to suggest pneumonia. There are old, healed left-sided rib fractures again noted. IMPRESSION: No acute process. ACT 112: Negative or not required by law. Electronically signed by: Candido Louie M.D. 05/21/2022 7:26 PM Abdomen/Pelvis CT 05/21/22 20:25 CT OF THE ABDOMEN AND PELVIS WITH CONTRAST CLINICAL HISTORY: Lower abdominal pain. Fever. COMPARISON STUDY: Renal ultrasound May 31, 2006. TECHNIQUE: Following IV administration of 92 mL of Optiray, axial images of the abdomen and pelvis were obtained from the lung bases to the proximal femurs. Images were reviewed in the axial, sagittal, and coronal planes. IV contrast was administered without complication. Automated exposure control was utilized for the study. A dose lowering technique was utilized adhering to the principles of ALARA. CT DOSE: 618.65 mGy.cm FINDINGS: Several small left lower lobe pulmonary nodules are likely benign. No pneumatosis, free air or portal venous gas is present. No hepatic lesions are identified. There is no biliary or pancreatic ductal dilatation. Spleen, adrenal glands and pancreas are unremarkable. There are numerous water attenuation bilateral renal lesions. These reflect cysts. Several subcentimeter renal lesions are too small to characterize. There is no hydronephrosis. Punctate left renal calculus is noted. There are no ureteral calculi. Infrarenal abdominal aorta is ectatic, measuring 2.5 cm in caliber. No lymphadenopathy. No evidence for acute appendicitis. Caliber and wall thickness of small and large bowel are normal. There is no evidence for a bowel obstruction. Colonic diverticulosis is noted without evidence for acute diverticulitis. Prostate is mildly enlarged. No acute fracture or suspicious lesion within the visualized skeletal structures. IMPRESSION: 1. No acute process within the abdomen or pelvis. 2. No bowel obstruction. No bowel wall thickening. No evidence for acute appendicitis. 3. Numerous bilateral renal cysts. Several subcentimeter renal lesions which are too small to characterize. 4. Mildly enlarged prostate. 5. Colonic diverticulosis. No evidence for acute diverticulitis. ACT 112: Negative or not required by law. Electronically signed by: Peter Nicole M.D. 05/22/2022 8:25 AM
--- NOTE | 2022-05-22 14:52 | Electrocardiogram Report ---
Test Reason : Blood Pressure : / mmHG Vent. Rate : 099 BPM Atrial Rate : 099 BPM P-R Int : 172 ms QRS Dur : 082 ms QT Int : 338 ms P-R-T Axes : 014 -24 058 degrees QTc Int : 433 ms Normal sinus rhythm Possible Left atrial enlargement Left ventricular hypertrophy with repolarization changes Abnormal ECG When compared with ECG of 30-AUG-2021 21:16, No significant change was found Confirmed by Anshul Dumont ([id number]) on 05/22/2022 2:52:32 PM Referred By: REFERRED SELF Confirmed By:Reji Dumont
[2022-05-22 15:14] LABS: BUN Creatinine Ratio 18.2 (10-20); Calcium 8.2 mg/dl (8.5-10.1); Creatinine Clr Calc Pharmacy 52.1 ml/min; Est GFR (African American) 52.9 ml/min; Est GFR (Non-African American) 45.7 ml/min; Potassium 3.6 mmol/L (3.5-5.1)
[2022-05-22] MEDS: SODIUM CHLORIDE 0.9% 1000ML 1,000 ML IV SCH ×2 (16:10→23:32)
[2022-05-22] MEDS ORDERED: BACLOFEN 10 MG TAB PO PRN (16:14)
[2022-05-22] MEDS ORDERED: CYCLOBENZAPRINE HCL 10 MG TAB PO PRN (16:14)
[2022-05-22] MEDS ORDERED: MELATONIN 3 MG TAB PO PRN (19:13)
[2022-05-22] MEDS: HEPARIN SOD 5,000 UNIT/0.5 ML VIAL SQ SCH (20:42)
[2022-05-22] MEDS ORDERED: METOPROLOL SUCC 25MG EXT REL TAB PO SCH (21:00)
[2022-05-23] MEDS: PIPERACILLIN/TAZOBACTAM 4.5 GM in DEXTROSE 5% 100 ML IV SCH ×2 (02:51→10:24)
[2022-05-23] MEDS: HEPARIN SOD 5,000 UNIT/0.5 ML VIAL SQ SCH (06:44)
[2022-05-23 07:18] LABS: Basophils # (auto) 0.05 K/uL (0-0.2); Basophils % (auto) 0.6 %; Eosinophils # (auto) 0.35 K/uL (0-0.50); Eosinophils % (auto) 4.5 %; Hematocrit (blood only) 38.1 % (40.1-51.0); Hemoglobin 12.5 g/dl (14.0-18.0); Immature Granulocytes # (auto) 0.02 K/uL (0.00-0.02); Immature Granulocytes % (auto) 0.3 %; Lymphocytes # (auto) 1.47 K/uL (1.2-3.4); Lymphocytes % (auto) 18.8 %; Mean Corpuscular Hemoglobin 28.9 pg (25.0-34.0); Mean Corpuscular Hgb Conc 32.8 g/dL (32.0-36.0); Mean Corpuscular Volume 88.2 fL (80.0-100.0); Mean Platelet Volume 11.6 fL (9.4-12.4); Monocytes # (auto) 0.89 K/uL (0.24-0.82); Monocytes % (auto) 11.4 %; Neutrophils # (auto) 5.04 K/uL (1.4-6.5); Neutrophils % (auto) 64.4 %; Platelet Count 185 K/uL (130-400); RDW Coefficient of Variation 13.1 % (11.5-14.5); RDW Standard Deviation 42.5 fL (36.4-46.3); Red Blood Count 4.32 M/uL (4.63-6.08); White Blood Count 7.82 K/ul (4.8-10.8)
[2022-05-23] MEDS: SODIUM CHLORIDE 0.9% 1000ML 1,000 ML IV SCH (07:31)
[2022-05-23 07:40] LABS: BUN Creatinine Ratio 15.4 (10-20); Calcium 8.5 mg/dl (8.5-10.1); Creatinine Clr Calc Pharmacy 61.7 ml/min; Est GFR (Non-African American) 56.1 ml/min; Magnesium 1.9 mg/dl (1.7-2.4); Phosphorus 2.6 mg/dl (2.5-4.9); Potassium 4.1 mmol/L (3.5-5.1)
--- NOTE | 2022-05-23 08:07 | Hospitalist Progress Note ---
Date of Service May 23, 2022 Assessment & Plan (1) Sepsis: (2) E coli infection: Plan: Patient with fever to 38C, WBC 22, PCT 0.64, HR 90s Reports decreased appetite, rigors, fevers, fatigue Has been receiving IV fluids and empiric Zosyn and Vanco with significant clinical improvement Work up - CXR unremarkable, no urinary, pulmonary, GI symptoms besides one episode of vomiting and abdominal pain. CT abd/pelvis with no acute process within the abdomen or pelvis. Lyme serology negative, covid flu and RSV PCR negative Stool culture positive for enteropathogenic E coli Discontinued Vancomycin. Continued Zosyn while inpt. Blood cultx negat. for 24 hrs Plan to DC on Azithromycin 500mg PO x 3 days (3) Leukocytosis: Plan: - likely from infection in the setting of fever as above - management as above - downtrending from 22 -> 11.86 -> 7.8K - Resolved (4) CAD S/P percutaneous coronary angioplasty: Plan: - stable angina - has exertional angina at times relieved by SL Nitro - follows with cardiology - continue ASA, plavix, statin - not current with chest pain (5) HTN (hypertension): Plan: - continue home medications (6) CKD (chronic kidney disease), stage III: Plan: Baseline Cr ~ 1.20-1.4 current Cr 1.3 Plan DVT ppx: SQ heparin Code Status: Full Code Dispo: Plan ti DC home Admission and Anticipated Discharge Date Admission Date: May 22, 2022 Subjective Patient seen in follow-up for sepsis (fever, WBC 22K on admission), abd. pain,episode of vomiting - found to have enteropathogenic E. coli No recurrent nausea or vomiting. Afebrile. Abd. pain resolved. Denies any fever, chills, chest pain or shortness of breath. He is tolerating diet. Plan to DC home on Abx Review of Systems Review of Systems: All systems reviewed & are unremarkable except as noted in Subjective Physical Exam Physical Exam: Gen: WD/WN, NAD, sitting in chair,, A&Ox3 HEENT: Normocephalic, atraumatic, conjunctivae moist, sclerae anicteric, mucous membranes moist Lung: Clear to Auscultation bilaterally, no wheezes/rales/rhonchi Heart: Regular rate, regular rhythm, no murmurs, rubs, or gallops Abdomen: Soft, nontender on palp. (resolved), ND +BS x 4 Extremities: no edema, moves extremities Skin: Warm, no rash Results & Data Results & Data ([facility]) Vital Signs (Past 12 Hours) Vital Signs Temp Pulse Resp BP BP Pulse Ox O2 Del Method 05/23/22 07:58 36.9 C 46 L 16 124/70 92 Room Air 05/22/22 23:00 36.8 C 56 L 16 129/66 94 Room Air Laboratory Results 05/23/22 05/23/22 05/22/22 Range/Units 06:53 06:53 14:33 WBC 7.82 (4.8-10.8) K/ul RBC 4.32 L (4.63-6.08) M/uL Hgb 12.5 L (14.0-18.0) g/dl Hct 38.1 L (40.1-51.0) % MCV 88.2 (80.0-100.0) fL MCH 28.9 (25.0-34.0) pg MCHC 32.8 (32.0-36.0) g/dL RDW Std Deviation 42.5 (36.4-46.3) fL RDW Coeff of Mary 13.1 (11.5-14.5) % Plt Count 185 (130-400) K/uL MPV 11.6 (9.4-12.4) fL Immature Gran % (Auto) 0.3 % Neut % (Auto) 64.4 % Lymph % (Auto) 18.8 % Eaton % (Auto) 11.4 % Eos % (Auto) 4.5 % Baso % (Auto) 0.6 % Neut # (Auto) 5.04 (1.4-6.5) K/uL Lymph # (Auto) 1.47 (1.2-3.4) K/uL Eaton # (Auto) 0.89 H (0.24-0.82) K/uL Eos # (Auto) 0.35 (0-0.50) K/uL Baso # (Auto) 0.05 (0-0.2) K/uL Immature Gran # (Auto) 0.02 (0.00-0.02) K/uL Sodium 141 139 (136-145) mmol/L Potassium 4.1 3.6 (3.5-5.1) mmol/L Chloride 110 H 105 (98-107) mmol/L Carbon Dioxide 28 29 (21-32) mmol/L Anion Gap 3 5 (3-11) BUN 20 28 H (6-23) mg/dl Creatinine 1.30 1.54 H (0.6-1.4) mg/dl Est Cr Clr Drug Dosing 61.7 52.1 ml/min Est GFR ( Amer) 65.0 52.9 ml/min Est GFR (Non-Af Amer) 56.1 45.7 ml/min BUN/Creatinine Ratio 15.4 18.2 (10-20) Glucose 99 95 (70-99(Fasting)) mg/dl Calcium 8.5 8.2 L (8.5-10.1) mg/dl Phosphorus 2.6 (2.5-4.9) mg/dl Magnesium 1.9 (1.7-2.4) mg/dl Stl C. cayetanensis PCR (NotDetected) Stool Rotavirus A PCR (NotDetected) Stl Adenov F 40/41 PCR (NotDetected) Stool Astrovirus (PCR) (NotDetected) Stool Campylobacter PCR (NotDetected) Stl C. diff Tox A/B PCR (NotDetected) Stool Cryptosporidium PCR (NotDetected) Stl E.coli Shiga Tox PCR (NotDetected) Stl Enterotoxigenic E PCR (NotDetected) Stool EPEC (PCR) (NotDetected) Stool EAEC (PCR) (NotDetected) Stl E. histolytica PCR (NotDetected) Stool Giardia Lamblia PCR (NotDetected) Stool Salmonella PCR (NotDetected) Stool Sapovirus (PCR) (NotDetected) Stl P. shigelloides PCR (NotDetected) Stl Shigella/EIEC PCR (NotDetected) St Y.enterocolitica PCR (NotDetected) Stool Vibrio (PCR) (NotDetected) Stl Vibrio cholerae PCR (NotDetected) Stl Norovirus GI/GII PCR (NotDetected) A. phagocytophilum DNA Lyme Disease IgG Ab (Negative) Lyme Disease IgM Ab (Negative) SARS-CoV-2 (PCR) (Negative) Influenza Type A (PCR) (Neg) Influenza Type B (PCR) (Neg) RSV (RT-PCR) (Neg) 05/22/22 05/22/22 05/22/22 Range/Units 12:31 12:08 12:08 WBC (4.8-10.8) K/ul RBC (4.63-6.08) M/uL Hgb (14.0-18.0) g/dl Hct (40.1-51.0) % MCV (80.0-100.0) fL MCH (25.0-34.0) pg MCHC (32.0-36.0) g/dL RDW Std Deviation (36.4-46.3) fL RDW Coeff of Mary (11.5-14.5) % Plt Count (130-400) K/uL MPV (9.4-12.4) fL Immature Gran % (Auto) % Neut % (Auto) % Lymph % (Auto) % Eaton % (Auto) % Eos % (Auto) % Baso % (Auto) % Neut # (Auto) (1.4-6.5) K/uL Lymph # (Auto) (1.2-3.4) K/uL Eaton # (Auto) (0.24-0.82) K/uL Eos # (Auto) (0-0.50) K/uL Baso # (Auto) (0-0.2) K/uL Immature Gran # (Auto) (0.00-0.02) K/uL Sodium (136-145) mmol/L Potassium (3.5-5.1) mmol/L Chloride (98-107) mmol/L Carbon Dioxide (21-32) mmol/L Anion Gap (3-11) BUN (6-23) mg/dl Creatinine (0.6-1.4) mg/dl Est Cr Clr Drug Dosing ml/min Est GFR ( Amer) ml/min Est GFR (Non-Af Amer) ml/min BUN/Creatinine Ratio (10-20) Glucose (70-99(Fasting)) mg/dl Calcium (8.5-10.1) mg/dl Phosphorus (2.5-4.9) mg/dl Magnesium (1.7-2.4) mg/dl Stl C. cayetanensis PCR (NotDetected) Stool Rotavirus A PCR (NotDetected) Stl Adenov F 40/41 PCR (NotDetected) Stool Astrovirus (PCR) (NotDetected) Stool Campylobacter PCR (NotDetected) Stl C. diff Tox A/B PCR (NotDetected) Stool Cryptosporidium PCR (NotDetected) Stl E.coli Shiga Tox PCR (NotDetected) Stl Enterotoxigenic E PCR (NotDetected) Stool EPEC (PCR) (NotDetected) Stool EAEC (PCR) (NotDetected) Stl E. histolytica PCR (NotDetected) Stool Giardia Lamblia PCR (NotDetected) Stool Salmonella PCR (NotDetected) Stool Sapovirus (PCR) (NotDetected) Stl P. shigelloides PCR (NotDetected) Stl Shigella/EIEC PCR (NotDetected) St Y.enterocolitica PCR (NotDetected) Stool Vibrio (PCR) (NotDetected) Stl Vibrio cholerae PCR (NotDetected) Stl Norovirus GI/GII PCR (NotDetected) A. phagocytophilum DNA Pending Lyme Disease IgG Ab Negative (Negative) Lyme Disease IgM Ab Negative (Negative) SARS-CoV-2 (PCR) NEGATIVE (Negative) Influenza Type A (PCR) Negative (Neg) Influenza Type B (PCR) Negative (Neg) RSV (RT-PCR) Negative (Neg) 05/22/22 05/22/22 Range/Units 11:57 07:09 WBC 11.86 H D (4.8-10.8) K/ul RBC 4.08 L (4.63-6.08) M/uL Hgb 12.1 L (14.0-18.0) g/dl Hct 35.6 L (40.1-51.0) % MCV 87.3 (80.0-100.0) fL MCH 29.7 (25.0-34.0) pg MCHC 34.0 (32.0-36.0) g/dL RDW Std Deviation 41.1 (36.4-46.3) fL RDW Coeff of Mary 13.1 (11.5-14.5) % Plt Count 182 (130-400) K/uL MPV 12.1 (9.4-12.4) fL Immature Gran % (Auto) % Neut % (Auto) % Lymph % (Auto) % Eaton % (Auto) % Eos % (Auto) % Baso % (Auto) % Neut # (Auto) (1.4-6.5) K/uL Lymph # (Auto) (1.2-3.4) K/uL Eaton # (Auto) (0.24-0.82) K/uL Eos # (Auto) (0-0.50) K/uL Baso # (Auto) (0-0.2) K/uL Immature Gran # (Auto) (0.00-0.02) K/uL Sodium (136-145) mmol/L Potassium (3.5-5.1) mmol/L Chloride (98-107) mmol/L Carbon Dioxide (21-32) mmol/L Anion Gap (3-11) BUN (6-23) mg/dl Creatinine (0.6-1.4) mg/dl Est Cr Clr Drug Dosing ml/min Est GFR ( Amer) ml/min Est GFR (Non-Af Amer) ml/min BUN/Creatinine Ratio (10-20) Glucose (70-99(Fasting)) mg/dl Calcium (8.5-10.1) mg/dl Phosphorus (2.5-4.9) mg/dl Magnesium (1.7-2.4) mg/dl Stl C. cayetanensis PCR Not Detected (NotDetected) Stool Rotavirus A PCR Not Detected (NotDetected) Stl Adenov F 40/41 PCR Not Detected (NotDetected) Stool Astrovirus (PCR) Not Detected (NotDetected) Stool Campylobacter PCR Not Detected (NotDetected) Stl C. diff Tox A/B PCR Not Detected (NotDetected) Stool Cryptosporidium PCR Not Detected (NotDetected) Stl E.coli Shiga Tox PCR Not Detected (NotDetected) Stl Enterotoxigenic E PCR Not Detected (NotDetected) Stool EPEC (PCR) DETECTED A* (NotDetected) Stool EAEC (PCR) Not Detected (NotDetected) Stl E. histolytica PCR Not Detected (NotDetected) Stool Giardia Lamblia PCR Not Detected (NotDetected) Stool Salmonella PCR Not Detected (NotDetected) Stool Sapovirus (PCR) Not Detected (NotDetected) Stl P. shigelloides PCR Not Detected (NotDetected) Stl Shigella/EIEC PCR Not Detected (NotDetected) St Y.enterocolitica PCR Not Detected (NotDetected) Stool Vibrio (PCR) Not Detected (NotDetected) Stl Vibrio cholerae PCR Not Detected (NotDetected) Stl Norovirus GI/GII PCR Not Detected (NotDetected) A. phagocytophilum DNA Lyme Disease IgG Ab (Negative) Lyme Disease IgM Ab (Negative) SARS-CoV-2 (PCR) (Negative) Influenza Type A (PCR) (Neg) Influenza Type B (PCR) (Neg) RSV (RT-PCR) (Neg) Medications Administered Current Inpatient Medications Acetaminophen (Acetaminophen 325 Mg Tab) 650 mg PO Q4H PRN PRN Reason: Pain or Fever Stop: 06/21/22 04:50 Last Admin: 05/22/22 05:06 Dose: 650 mg Amlodipine Besylate (Amlodipine Besylate 5 Mg Tab) 5 mg PO [facility] Stop: 06/21/22 08:59 Last Admin: 05/22/22 09:20 Dose: 5 mg Aspirin (Aspirin 81 Mg Ectab) 162 mg PO [facility] Stop: 06/21/22 08:59 Last Admin: 05/22/22 09:21 Dose: 162 mg Baclofen (Baclofen 10 Mg Tab) 10 mg PO HS PRN PRN Reason: Pain Stop: 06/21/22 16:13 Clopidogrel Bisulfate (Clopidogrel Bisulfate 75 Mg Tab) 75 mg PO [facility] Stop: 06/21/22 08:59 Last Admin: 05/22/22 09:21 Dose: 75 mg Cyclobenzaprine HCl (Cyclobenzaprine Hcl 10 Mg Tab) 10 mg PO BID PRN PRN Reason: Muscle Spasm Stop: 06/21/22 16:13 Docusate Sodium (Docusate Sodium 100 Mg Cap) 100 mg PO BID [facility] Stop: 06/21/22 08:59 Last Admin: 05/22/22 20:42 Dose: 100 mg Docusate Sodium (Docusate Sodium 100 Mg Cap) 100 mg PO [facility] Stop: 06/22/22 08:59 Heparin Sodium (Porcine) (Heparin Sod 5,000 Unit/0.5 Ml Vial) 5,000 units SQ Q8 [facility] Stop: 06/21/22 21:59 Last Admin: 05/23/22 06:44 Dose: 5,000 units Piperacillin Sod/Tazobactam (Sod 4.5 gm/ Dextrose) 120 mls @ 28.75 mls/hr IV Q8H [facility]; Protocol Stop: 05/24/22 02:29 Last Infusion: 05/23/22 07:17 Dose: Infused Melatonin (Melatonin 3 Mg Tab) 9 mg PO HS PRN PRN Reason: Sleep Stop: 06/21/22 19:12 Last Admin: 05/22/22 22:29 Dose: 9 mg Metoprolol Succinate (Metoprolol Succ 25mg Ext Rel Tab) 12.5 mg PO QPM [facility] Stop: 06/21/22 20:59 Last Admin: 05/22/22 20:42 Dose: 12.5 mg Metoprolol Succinate (Metoprolol Succ 25mg Ext Rel Tab) 25 mg PO QAM [facility] Stop: 06/21/22 08:59 Last Admin: 05/22/22 09:22 Dose: Not Given Nitroglycerin (Nitroglycerin Sl 0.4 Mg/Tab Tab) 0.4 mg SL PRN PRN PRN Reason: chest pain Stop: 06/21/22 01:35 Polyethylene Glycol (Polyethylene (Miralax) 17 Gm Pack) 17 gm PO DAILY PRN PRN Reason: Constipation Stop: 06/21/22 01:32 Rosuvastatin Calcium (Rosuvastatin Calcium 20 Mg Tab) 40 mg PO QAM [facility] Stop: 06/21/22 08:59 Last Admin: 05/22/22 10:14 Dose: Not Given
[2022-05-23] MEDS ORDERED: DOCUSATE SODIUM 100 MG CAP PO SCH (09:00)
[2022-05-23] MEDS: amLODIPine BESYLATE 5 MG TAB PO SCH (09:23)
[2022-05-23] MEDS: CLOPIDOGREL BISULFATE 75 MG TAB PO SCH (09:24)
[2022-05-23] MEDS: DOCUSATE SODIUM 100 MG CAP PO SCH (09:24)
[2022-05-23] MEDS: ASPIRIN 81 MG ECTAB PO SCH (09:24)
[2022-05-23] MEDS: ROSUVASTATIN CALCIUM 20 MG TAB PO SCH (09:25)
[2022-05-23] MEDS: METOPROLOL SUCC 25MG EXT REL TAB PO SCH (09:25)
--- NOTE | 2022-05-23 12:03 | Discharge Summary ---
Date of Service May 23, 2022 Admission HPI Per Admitting Provider The patient is a 66 year old man with pmh CAD s/p stents x2 (~2011), HTN, HLD who presented with 1 day of fevers and rigors with abdominal pain. He reports that he started having crampy abdominal pain about 2-3 days ago. He then developed fever and rigors the day of presentation. He was noted to also have had one episode of vomiting the day of admission. He denies any blood in his vomit, he denies diarrhea, cough, shortness of breath, chest pain, sore throat, congestion, wounds, rashes, dysuria, frequency. The abdominal pain is diffuse but mostly concentrated in the lower quandrants. Not affected by BMs. Normal functional status is good, works around his house. 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 In the ED, vitals were significant for temp to 38C, HR 90s. Labs were significant for WBC 22,PCT 0.63, lactic acid 0.9. CXR was unrevealing, CT-AP was also unremarkable on prelim read. Blood cultures were drawn, he was given a dose of zosyn and IVF and admitted to medicine. Admission Exam Per Admitting Provider Constitutional: WD/WN, vitals as above no acute distress Eyes: PERRL, conjunctivae normal, anicteric sclerae ENMT: Nose: no external nose abnormality, no nasal discharge and no sinus tenderness Mouth: + dry oral mucous membranes Neck: trachea midline, no thyromegaly Respiratory: normal respiratory effort, lungs clear to auscultation Cardiovascular: RRR, no murmur, no edema Gastrointestinal (Abdomen): Inspection/Auscultation: + abdomen distended and normal bowel sounds Percussion/Palpation: + abdomen tender (diffusely, mostly Lower quadrants - mild) and abdomen soft; no guarding and abdomen not rigid Musculoskeletal: no cyanosis or clubbing, extremities motor strength 5/5 Skin: no rashes, warm and dry Neurologic: patellar DTR's 2+ bilat, sensation intact and PERRL, EOMI, accommodation nl, no face palsy, no dysarthria Psychiatric: A+Ox3, euthymic affect Principal Diagnosis Infection with enteropathogenic E. coli Discharge Exam Gen: WD/WN, NAD, sitting in chair,, A&Ox3 HEENT: Normocephalic, atraumatic, conjunctivae moist, sclerae anicteric, mucous membranes moist Lung: Clear to Auscultation bilaterally, no wheezes/rales/rhonchi Heart: Regular rate, regular rhythm, no murmurs, rubs, or gallops Abdomen: Soft, nontender on palp. (resolved), ND +BS x 4 Extremities: no edema, moves extremities Skin: Warm, no rash Discharge Data Allergies Allergy/AdvReac Type Severity Reaction Status Date / Time morphine Allergy Severe ILL Unverified 05/21/22 20:34 tetracycline Allergy Mild RASH Verified 05/21/22 20:34 codeine Allergy Unknown Unknown Verified 05/21/22 20:34 shrimp AdvReac Mild NECK Verified 05/21/22 20:34 SWELLS IF HE EATS ALOT OF THEM enalapril AdvReac Cough Verified 05/21/22 20:34 Consultations 05/22/22 00:53 ED Decision to Admit Stat Ordered Studies 05/21/22 20:25 CT abd pelvis IV con only Urgent FINDINGS: Several small left lower lobe pulmonary nodules are likely benign. No pneumatosis, free air or portal venous gas is present. No hepatic lesions are identified. There is no biliary or pancreatic ductal dilatation. Spleen, adrenal glands and pancreas are unremarkable. There are numerous water attenuation bilateral renal lesions. These reflect cysts. Several subcentimeter renal lesions are too small to characterize. There is no hydronephrosis. Punctate left renal calculus is noted. There are no ureteral calculi. Infrarenal abdominal aorta is ectatic, measuring 2.5 cm in caliber. No lymphadenopathy. No evidence for acute appendicitis. Caliber and wall thickness of small and large bowel are normal. There is no evidence for a bowel obstruction. Colonic diverticulosis is noted without evidence for acute diverticulitis. Prostate is mildly enlarged. No acute fracture or suspicious lesion within the visualized skeletal structures. IMPRESSION: 1. No acute process within the abdomen or pelvis. 2. No bowel obstruction. No bowel wall thickening. No evidence for acute appendicitis. 3. Numerous bilateral renal cysts. Several subcentimeter renal lesions which are too small to characterize. 4. Mildly enlarged prostate. 5. Colonic diverticulosis. No evidence for acute diverticulitis. Hospital Course (1) Sepsis: (2) E coli infection: Patient with fever to 38C, WBC 22, PCT 0.64, HR 90s Reports decreased appetite, rigors, fevers, fatigue Has been receiving IV fluids and empiric Zosyn and Vanco with significant clinical improvement Work up - CXR unremarkable, no urinary, pulmonary, GI symptoms besides one episode of vomiting and abdominal pain. CT abd/pelvis with no acute process within the abdomen or pelvis. Lyme serology negative, covid flu and RSV PCR negative Stool culture positive for enteropathogenic E coli Discontinued Vancomycin. Continued Zosyn while inpt. Blood cultx negat. for 24 hrs Plan to DC on Azithromycin 500mg PO x 3 days (3) Leukocytosis: - likely from infection in the setting of fever as above - management as above - downtrending from 22 -> 11.86 -> 7.8K - Resolved (4) CAD S/P percutaneous coronary angioplasty: - stable angina - has exertional angina at times relieved by SL Nitro - follows with cardiology - continue ASA, plavix, statin - not current with chest pain (5) HTN (hypertension): - continue home medications, but hold HCTZ Pt bradycardic at 50s at times and metoprolol held by RN will decrease dose of beta niraj and CCB - pt to follow up w/ PCP (6) CKD (chronic kidney disease), stage III: Baseline Cr ~ 1.20-1.4 current Cr 1.3 Plan DVT ppx: SQ heparin Code Status: Full Code Dispo: Plan ti DC home Total Time Total Time Spent Total Time Spent (In Minutes): 40 Discharge Plan Discharge Items Patient Disposition: Home - Self-Care Reason For Visit: FEVER Discharge Diagnosis: Infection with enteropathogenic E. coli Activity: Per Instructions section Non-emergency contact: Primary Care Provider Call non-emergency contact if: you have any medication questions and your symptoms worsen Follow-up/Referrals: Sabino Izaguirre MD [Primary Care Provider] - Diet: Low Fiber and Low Fat Addtl Attending Provider Instructions: Follow-up with your primary care doctor within 1 week. Finish antibiotic treatment with Azithromycin, as prescribed. Monitor your blood pressure at home, and write down your numbers. Discuss with your doctor, if your medication needs further adjustment. Your heart rate has been on the lower side while in the hospital. For now, I recommend to reduce your dose of amlodipine and metoprolol. Take only half a tablet 2.5 mg of amlodipine in the morning. Take 12.5 mg of your metoprolol twice a day (instead of 25 mg that you take in the morning). For now, do not take hydrochlorothiazide, until you further discuss with your primary care physician. Pending Studies at Discharge: No Stand-Alone Forms: My [facility], Smoking Cessation Medications and DC Order Prescriptions: New azithromycin [Zithromax] 500 mg tablet 500 mg PO DAILY Qty: 3 0RF Continued sildenafil 50 mg Tablet 50 mg PO DAILY PRN (Reason: Before intercourse) Rx Instructions: administer 1 to 4 hours before activity baclofen 10 mg Tablet 10 mg PO HS PRN (Reason: Pain) pantoprazole 40 mg Tablet,Delayed Release (Dr/Ec) 40 mg PO DAILY docusate sodium 100 mg Tablet 100 mg PO QAM multivitamin Tablet 1 tab PO DAILY cyclobenzaprine 10 mg Tablet 10 mg PO BID PRN (Reason: Muscle Spasm) omega-3 fatty acids [Fish Oil Concentrate] 1,000 mg Capsule 1,000 mg PO BID ondansetron HCl 4 mg Tablet 4 mg PO Q8H PRN (Reason: Nausea) clopidogrel [Plavix] 75 mg Tablet 75 mg PO DAILY amlodipine 5 mg Tablet 5 mg PO DAILY aspirin [Aspir-Low] 81 mg Tablet,Delayed Release (Dr/Ec) 162 mg PO DAILY famotidine 20 mg Tablet 20 mg PO BID losartan 25 mg Tablet 25 mg PO DAILY nitroglycerin [Nitrostat] 0.4 mg Tablet, Sublingual 0.4 mg sublingual DIRECTED Rx Instructions: 1 tab Q5 min PRN for chest pain. metoprolol succinate 25 mg Tablet Extended Release 24 Hr 25 mg PO DAILY metoprolol succinate 25 mg Tablet Extended Release 24 Hr 12.5 mg PO QPM fluticasone propionate [Flonase Allergy Relief] 50 mcg/actuation [place],Suspension 2 spray INTRANASAL DAILY PRN (Reason: allergies) Rx Instructions: administer into each nostril Excedrin Migraine 250-250-65 mg Tablet 1 tab PO Q6H PRN (Reason: Migraine Headache) rosuvastatin 40 mg Tablet 40 mg PO DAILY hydrochlorothiazide 25 mg Tablet 25 mg PO DAILY Discharge Orders: Discharge Order (Routine); Ordered 05/23/22 Ordered By: Charbel Burnette Admission Data Admit Date/Time: 05/22/22 01:34 Attending Provider: Charbel Burnette Admit Provider: Inocencio Jeffries Primary Care Provider: Sabino Izaguirre Other Providers: Inocencio Jeffries ; Thuy Clay
== END 2022-05-23 15:09 | disposition home or self-care (01) | DRG 872 ==
LOC: ED 19:03 → 3N 05-22 01:34

== ENCOUNTER 2023-06-18 16:13 | Inpatient (IN) ==
[2023-06-18 17:07] LABS: Basophils # (auto) 0.12 K/uL (0.00-0.20); Basophils % (auto) 1.2 %; Eosinophils # (auto) 0.54 K/uL (0.00-0.50); Eosinophils % (auto) 5.6 %; Hematocrit (blood only) 34.9 % (42.0-52.0); Hemoglobin 11.9 g/dl (14.0-18.0); Immature Granulocytes # (auto) 0.02 K/uL (0.01-0.20); Immature Granulocytes % (auto) 0.2 %; Lymphocytes # (auto) 1.44 K/uL (1.20-3.40); Lymphocytes % (auto) 14.8 %; Mean Corpuscular Hemoglobin 30.7 pg (25.0-34.0); Mean Corpuscular Hgb Conc 34.1 g/dL (32.0-36.0); Mean Corpuscular Volume 89.9 fL (80.0-100.0); Mean Platelet Volume 11.7 fL (9.4-12.4); Monocytes # (auto) 0.87 K/uL (0.11-0.59); Neutrophils # (auto) 6.73 K/uL (1.40-6.50); Neutrophils % (auto) 69.2 %; Platelet Count 257 K/uL (130-400); RDW Coefficient of Variation 12.7 % (11.5-14.5); RDW Standard Deviation 41.7 fL (36.4-46.3); Red Blood Count 3.88 M/uL (4.70-6.10); White Blood Count 9.72 K/ul (4.8-10.8)
[2023-06-18 17:23] LABS: Albumin Globulin Ratio 1.5 (0.9-2); Albumin Level 4.5 gm/dl (3.4-5.0); BUN Creatinine Ratio 20.1 (10-20); Bilirubin,Total 0.5 mg/dl (0.2-1.0); Calcium 9.7 mg/dl (8.6-10.3); Creatinine Clr Calc Pharmacy 59.1 ml/min; Est GFR (African American) 59.5 ml/min; Est GFR (Non-African American) 51.3 ml/min; Total Protein 7.5 gm/dl (6.0-8.3)
[2023-06-18] MEDS ORDERED: VANCOMYCIN CONSULT ACTIVE PRN (18:56)
[2023-06-18] MEDS ORDERED: VANCOMYCIN HCL 2,000 MG in SODIUM CHLORIDE 0.9% 500 ML IV ONE (18:56)
--- NOTE | 2023-06-18 19:36 | Emergency Department Note ---
Impression & Plan Flexor tenosynovitis of thumb ED Provider Note NAME: MARINA FENG SR AGE: 67 SEX: M : 1955 ARRIVES VIA: Walk-In INFORMANT: Patient, ED PROVIDER(S): Roxanne Reagan MD CHIEF COMPLAINT: HPI: This is a 67-year-old male presenting for thumb swelling. Patient states that he was cut with a clean hunting knife last Wednesday, 8 days ago. He went to an outside hospital and since being discharged has progressively worsened. He has now swelling to the thumb, inability to move it due to pain, pain at rest. He has had no fevers or chills. Otherwise he went to a primary care physician who gave amoxicillin without improvement in the symptoms. ROS: See above HPI for pertinent positives & negatives. A total of 10 systems reviewed and were otherwise negative. PAST MEDICAL HISTORY: See Below PAST SURGICAL HISTORY: See Below FAMILY HISTORY: See Below SOCIAL HISTORY: See Below HOME MEDICATIONS: See Below ALLERGIES: See Below VITALS: See Below PHYSICAL EXAMINATION: General: resting comfortably in no acute distress Head: Normocephalic and atraumatic Eyes: Normal inspection, extraocular muscles intact, no conjunctival pallor Ear, nose, throat: Normal external exam Neck: Normal range of motion Respiratory: Patient is in no respiratory distress, lungs clear to auscultation bilaterally Cardiovascular: RRR without murmur appreciated GI: soft, nontender, no guarding or rebound Extremities: Left thumb shows fusiform swelling, tenderness to palpation diffusely, with range of motion, warm Neuro: The patient awake and alert, appropriately conversive,no focal decifits Skin: Warm, dry, and intact MEDICAL DECISION MAKING: This is a 67-year-old male presenting for thumb swelling. Concern for infection of thumb including flexor tenosynovitis. Will discuss with the take surgery. We will give vancomycin here will get x-ray. Discussed with orthopedic surgery, Dr. Chadwick, who agrees with management for possible flexor tenosynovitis. He recommends adding IV ciprofloxacin. Based on imaging sent to him, he will evaluate the patient for possible OR in the morning. X-ray reviewed by me does show soft tissue swelling without osseous abnormality. Lab work is reviewed showing no significant leukocytosis, no other life- threatening abnormalities are noted. Triage Nursing notes reviewed. Prior medical records reviewed Vital Signs: reviewed and remarkable for no significant abnormalities Differential diagnosis: Extensor versus flexor synovitis, soft tissue infection, abscess ER treatment provided: See below Diagnostics interpreted by me: ECG: None Cardiac Monitoring: An order was placed for continuous cardiac monitoring. The monitor shows a rate of 61 with sinus rhythm. Laboratory studies: As stated above and show below. Imaging studies: See below. Radiographic imaging was reviewed by myself Consultation(s): None Past Med/Surg History Medical History Coronary artery disease Hyperlipidemia Hypertension Surgical History History of coronary artery stent placement Family History Other Family history non-contributory Social History Smoking Status: Never smoker Hx Alcohol Use: No Hx Substance Use: No Preferred Language: Amharic Communication Ability: Effective Fiscal Assistant Required: No Beliefs That Will Affect Care: None Current Living Situation: Spouse Feels Safe at Home: Yes Assistive Devices: None Allergies Allergies Allergy/AdvReac Type Severity Reaction Status Date / Time morphine Allergy Severe ILL Unverified 05/21/22 20:34 tetracycline Allergy Mild RASH Verified 05/21/22 20:34 codeine Allergy Unknown Unknown Verified 05/21/22 20:34 shrimp AdvReac Mild NECK Verified 05/21/22 20:34 SWELLS IF HE EATS ALOT OF THEM enalapril AdvReac Cough Verified 05/21/22 20:34 Home Meds Home Medications Medication Instructions Recorded Confirmed albuterol sulfate 90 mcg/actuation 2 puff inhalation Q4H PRN 06/18/23 06/18/23 aerosol inhaler Shortness Of Breath Or Wheezing amlodipine 5 mg tablet 5 mg PO DAILY 06/18/23 06/18/23 amoxicillin 875 mg-potassium 1 tab PO BID 06/18/23 06/18/23 clavulanate 125 mg tablet aspirin 81 mg tablet,delayed 81 mg PO DAILY 06/18/23 06/18/23 release clopidogrel 75 mg tablet 75 mg PO DAILY 06/18/23 06/18/23 famotidine 20 mg tablet 20 mg PO DAILY 06/18/23 06/18/23 gabapentin 100 mg capsule 100 mg PO TID 06/18/23 06/18/23 hydrochlorothiazide 25 mg tablet 25 mg PO DAILY 06/18/23 06/18/23 hydrocodone 5 mg-acetaminophen 325 1 tab PO Q6H PRN Pain 06/18/23 06/18/23 mg tablet losartan 100 mg tablet 100 mg PO DAILY 06/18/23 06/18/23 metoprolol succinate 25 mg 25 mg PO UD 06/18/23 06/18/23 tablet,extended release 24 hr pantoprazole 40 mg tablet,delayed 40 mg PO DAILY 06/18/23 06/18/23 release rosuvastatin 40 mg tablet 40 mg PO DAILY 06/18/23 06/18/23 spironolactone 25 mg tablet 25 mg PO DAILY 06/18/23 06/18/23 torsemide 5 mg tablet 5 mg PO DAILY 06/18/23 06/18/23 Results & Data (ED) Vital Signs Vital Signs - 24 hr 06/18/23 16:17 06/18/23 19:34 Temperature 36.8 C Temperature Source Temporal Artery Scan Pulse Rate 74 Pulse Rate [Finger] 75 Respiratory Rate 18 18 Blood Pressure 157/82 H Blood Pressure [Right Arm] 137/85 Blood Pressure Mean 107 Blood Pressure Mean [Right Arm] 102 Pulse Oximetry 99 95 Oxygen Delivery Method Room Air Sepsis Recent Fever Within 48 Hours No Sepsis New/Unexplained Change in Mental Status No Sepsis Action Taken by Nursing No Action Required Laboratory Data 06/18/23 16:40 06/18/23 16:40 Lab Results 06/18/23 06/18/23 Range/Units 16:40 16:40 WBC 9.72 (4.8-10.8) K/ul RBC 3.88 L (4.70-6.10) M/uL Hgb 11.9 L (14.0-18.0) g/dl Hct 34.9 L (42.0-52.0) % MCV 89.9 (80.0-100.0) fL MCH 30.7 (25.0-34.0) pg MCHC 34.1 (32.0-36.0) g/dL RDW Std Deviation 41.7 (36.4-46.3) fL RDW Coeff of Mary 12.7 (11.5-14.5) % Plt Count 257 (130-400) K/uL MPV 11.7 (9.4-12.4) fL Immature Gran % (Auto) 0.2 % Neut % (Auto) 69.2 % Lymph % (Auto) 14.8 % Mccormick % (Auto) 9.0 % Eos % (Auto) 5.6 % Baso % (Auto) 1.2 % Neut # (Auto) 6.73 H (1.40-6.50) K/uL Lymph # (Auto) 1.44 (1.20-3.40) K/uL Mccormick # (Auto) 0.87 H (0.11-0.59) K/uL Eos # (Auto) 0.54 H (0.00-0.50) K/uL Baso # (Auto) 0.12 (0.00-0.20) K/uL Immature Gran # (Auto) 0.02 (0.01-0.20) K/uL Sodium 136 (136-145) mmol/L Potassium 4.0 (3.5-5.1) mmol/L Chloride 102 (98-107) mmol/L Carbon Dioxide 24 (21-32) mmol/L Anion Gap 10 (3-11) BUN 28 H (6-23) mg/dl Creatinine 1.39 (0.6-1.4) mg/dl Est Cr Clr Drug Dosing 59.1 ml/min Est GFR ( Amer) 59.5 ml/min Est GFR (Non-Af Amer) 51.3 ml/min BUN/Creatinine Ratio 20.1 H (10-20) Glucose 123 H (70-99(Fasting)) mg/dl Calcium 9.7 (8.6-10.3) mg/dl Total Bilirubin 0.5 (0.2-1.0) mg/dl AST 29 (13-39) U/L ALT 29 (7-52) U/L Alkaline Phosphatase 65 (34-104) U/L Total Protein 7.5 (6.0-8.3) gm/dl Albumin 4.5 (3.4-5.0) gm/dl Globulin 3.0 (2.5-4.0) gm/dl Albumin/Globulin Ratio 1.5 (0.9-2) Administered Medications Discontinued Medications Acetaminophen (Acetaminophen 325 Mg Tab) 650 mg PO NOW STA Stop: 06/18/23 20:24 Last Admin: 06/18/23 20:31 Dose: 650 mg Documented By: ALBIN Vancomycin HCl 2,000 mg/ (Sodium Chloride) 540 mls @ 200 mls/hr IV NOW ONE Stop: 06/18/23 21:37 Last Admin: 06/18/23 19:34 Dose: 200 mls/hr Documented By: ESTHELA Ciprofloxacin (Cipro / D5w) 400 mg in 200 mls @ 100 mls/hr IV NOW STA; Protocol Stop: 06/18/23 21:40 Last Admin: 06/18/23 22:21 Dose: 100 mls/hr Documented By: ESTHELA Ketorolac Tromethamine (Ketorolac Tromethamine 15 Mg/Ml Vial) 15 mg IV NOW ONE Stop: 06/18/23 22:10 Last Admin: 06/18/23 22:23 Dose: Not Given Documented By: ESTHELA Ketorolac Tromethamine (Ketorolac Tromethamine 15 Mg/Ml Vial) Confirm Administered Dose 15 mg .ROUTE .STK-MED ONE Stop: 06/18/23 22:19 Last Admin: 06/18/23 22:19 Dose: 15 mg Documented By: ESTHELA Discharge Plan Visit Data Chief Complaint: Infection, Wound Stated Complaint: LT THUMB LAC INFECTED ED Provider: Roxanne Reagan Discharge Problem: Flexor tenosynovitis of thumb Patient Disposition: Admitted As Inpatient Discharge Instructions Interventions: ED Discharge Assessment Last Done: 06/18/23 22:32
[2023-06-18] MEDS ORDERED: CIPROFLOXACIN / D5W 400 MG/200 ML BAG IV STA (19:41)
[2023-06-18] MEDS ORDERED: ACETAMINOPHEN 325 MG TAB PO STA (20:23)
[2023-06-18] MEDS ORDERED: KETOROLAC TROMETHAMINE 15 MG/ML VIAL IV ONE (22:09)
[2023-06-18] MEDS ORDERED: KETOROLAC TROMETHAMINE 15 MG/ML VIAL ONE (22:18)
--- NOTE | 2023-06-18 22:47 | History & Physical Report ---
Date of Service June 18, 2023 Assessment & Plan (1) Laceration of left thumb with infection: Plan: 67-year-old male with past med significant for hyperlipidemia, prediabetes, hiatal hernia, CAD status post stent, hypertension, mild ascending aortic dilatation, GERD, chronic kidney disease stage III, chronic pain, presents with a left thumb infection. Left thumb infection Cut with his knife last Wednesday Failed outpatient treatment with Augmentin IV Zosyn IV Vanco Pain control Gentle fluids N.p.o. for now Consult Ortho in a.m. History of CAD s/p stent On aspirin, statin, Plavix and beta-niraj History of hypertension On amlodipine, metoprolol, HCTZ, losartan and diuretics We will monitor the blood pressure CKD stage III Creatinine 1.39 We will follow labs Hyperlipidemia On statin Prediabetes We will follow HbA1c levels DVT prophylaxis SCDs for now Disposition observation medical floor Full code History of Present Illness Chief Complaint: Left thumb infection Primary Care Provider: Sabino Izaguirre MD 67-year-old male with past med significant for hyperlipidemia, prediabetes, hiatal hernia, CAD status post stent, hypertension, mild ascending aortic dilatation, GERD, chronic kidney disease stage III, chronic pain, presents with a left thumb infection. Patient cut his left thumb with his knife on last Wednesday and was in [facility] ER in [place] . Patient states no I&D was done he was discharged the same day from the ER. He was having a lot of pain and he made appointment with PCP on last Wednesday and was prescribed Augmentin. He took antibiotic for last 4 days but was not improving. He is having a lot of pain and today developed swelling of the left thumb and having painful movements so decided come to the ER. Denies any fevers but having chills. No other complaints. Resting comfortably in bed and hemodynamically stable. No headache. No runny nose or sore throat or cough. No trouble swallowing. No chest pain or shortness of breath. No nausea or vomiting. No abdominal pain. Normal bowel and bladder movements. Past medical history as mentioned above Past surgical history. Right shoulder arthroscopy. Cardiac cath s/p and placement. Colonoscopy. EGD with biopsy. Injection of lumbar and thoracic spine. Tonsillectomy. Left inguinal hernia repair. Right inguinal hernia repair. Repair of nasal septum. Right shoulder arthroscopy. Umbilical hernia repaired. Social history . No smoking. 5.8 standard drinks of alcohol per week. No drug use. Family history. Brother had colon cancer. Brother had heart disorder. Father had OR in 50s. Hypertension. Mother has hypertension. OR in 60s. Daughter has questionable MS. Son has allergies. Allergies Allergy/AdvReac Type Severity Reaction Status Date / Time morphine Allergy Severe ILL Unverified 05/21/22 20:34 tetracycline Allergy Mild RASH Verified 05/21/22 20:34 codeine Allergy Unknown Unknown Verified 05/21/22 20:34 shrimp AdvReac Mild NECK Verified 05/21/22 20:34 SWELLS IF HE EATS ALOT OF THEM enalapril AdvReac Cough Verified 05/21/22 20:34 Home Medications Medication Instructions Recorded Confirmed Type albuterol sulfate 90 mcg/actuation 2 puff inhalation Q4H PRN 06/18/23 06/18/23 History aerosol inhaler Shortness Of Breath Or Wheezing amlodipine 5 mg tablet 5 mg PO DAILY 06/18/23 06/18/23 History amoxicillin 875 mg-potassium 1 tab PO BID 06/18/23 06/18/23 History clavulanate 125 mg tablet aspirin 81 mg tablet,delayed 81 mg PO DAILY 06/18/23 06/18/23 History release clopidogrel 75 mg tablet 75 mg PO DAILY 06/18/23 06/18/23 History famotidine 20 mg tablet 20 mg PO DAILY 06/18/23 06/18/23 History gabapentin 100 mg capsule 100 mg PO TID 06/18/23 06/18/23 History hydrochlorothiazide 25 mg tablet 25 mg PO DAILY 06/18/23 06/18/23 History hydrocodone 5 mg-acetaminophen 325 1 tab PO Q6H PRN Pain 06/18/23 06/18/23 History mg tablet losartan 100 mg tablet 100 mg PO DAILY 06/18/23 06/18/23 History metoprolol succinate 25 mg 25 mg PO UD 06/18/23 06/18/23 History tablet,extended release 24 hr pantoprazole 40 mg tablet,delayed 40 mg PO DAILY 06/18/23 06/18/23 History release rosuvastatin 40 mg tablet 40 mg PO DAILY 06/18/23 06/18/23 History spironolactone 25 mg tablet 25 mg PO DAILY 06/18/23 06/18/23 History torsemide 5 mg tablet 5 mg PO DAILY 06/18/23 06/18/23 History Past Med/Surg History Medical History Coronary artery disease Hyperlipidemia Hypertension Surgical History History of coronary artery stent placement Family History Other Family history non-contributory Social History Smoking Status: Never smoker Second Hand Exposure: No; Do You Dip or Chew Tobacco: No; Tobacco Cessation Education Requested by Patient: No Hx Alcohol Use: Yes Alcohol type: wine Hx Substance Use: No Preferred Language: [place] Communication Ability: Effective Security Delivery Specialist Required: No Beliefs That Will Affect Care: Christianity Christianity Beliefs: Synagogue Current Living Situation: Other Current Living Situation Comment: spouse and niece Other Information That Helps Us Care for You: No Feels Safe at Home: Yes Safety Concerns: Feels Safe At This Time Assistive Devices: Glasses and Other Assistive Devices Comment: reading glasses Review of Systems Review of Systems: All systems reviewed & are unremarkable except as noted in HPI & below Physical Exam Physical Exam: General- Not in distress Head- atraumatic Eyes- PERRL. ENT- oropharynx clear Neck- supple, no JVD. Lungs- clear to auscultation, No wheezing or crackles Heart- regular rhythm; no murmur, no gallop. Abdomen- normal bowel sounds, soft, nontender, no distension. Extremities- no pretibial edema, Lft thumb swollen and tender to palpation. painful movements Neuro- alert, oriented x 3; PERRL,no facial palsy; no dysarthria. Non focal. Skin- warm & dry Results & Data Results & Data Vital Signs (Past 12 Hours) Vital Signs Temp Pulse Pulse Resp BP BP Pulse Ox 06/18/23 19:34 75 18 137/85 95 06/18/23 16:17 36.8 C 74 18 157/82 H 99 O2 Del Method 06/18/23 19:34 06/18/23 16:17 Room Air Diagnostic Findings Laboratory Results WBC 9.72 K/ul (4.8-10.8) 06/18/23 16:40 RBC 3.88 M/uL (4.70-6.10) L 06/18/23 16:40 Hgb 11.9 g/dl (14.0-18.0) L 06/18/23 16:40 Hct 34.9 % (42.0-52.0) L 06/18/23 16:40 MCV 89.9 fL (80.0-100.0) 06/18/23 16:40 MCH 30.7 pg (25.0-34.0) 06/18/23 16:40 MCHC 34.1 g/dL (32.0-36.0) 06/18/23 16:40 RDW Std Deviation 41.7 fL (36.4-46.3) 06/18/23 16:40 RDW Coeff of Mary 12.7 % (11.5-14.5) 06/18/23 16:40 Plt Count 257 K/uL (130-400) 06/18/23 16:40 MPV 11.7 fL (9.4-12.4) 06/18/23 16:40 Immature Gran % (Auto) 0.2 % 06/18/23 16:40 Neut % (Auto) 69.2 % 06/18/23 16:40 Lymph % (Auto) 14.8 % 06/18/23 16:40 Lyman % (Auto) 9.0 % 06/18/23 16:40 Eos % (Auto) 5.6 % 06/18/23 16:40 Baso % (Auto) 1.2 % 06/18/23 16:40 Neut # (Auto) 6.73 K/uL (1.40-6.50) H 06/18/23 16:40 Lymph # (Auto) 1.44 K/uL (1.20-3.40) 06/18/23 16:40 Lyman # (Auto) 0.87 K/uL (0.11-0.59) H 06/18/23 16:40 Eos # (Auto) 0.54 K/uL (0.00-0.50) H 06/18/23 16:40 Baso # (Auto) 0.12 K/uL (0.00-0.20) 06/18/23 16:40 Immature Gran # (Auto) 0.02 K/uL (0.01-0.20) 06/18/23 16:40 Sodium 136 mmol/L (136-145) 06/18/23 16:40 Potassium 4.0 mmol/L (3.5-5.1) 06/18/23 16:40 Chloride 102 mmol/L (98-107) 06/18/23 16:40 Carbon Dioxide 24 mmol/L (21-32) 06/18/23 16:40 Anion Gap 10 (3-11) 06/18/23 16:40 BUN 28 mg/dl (6-23) H 06/18/23 16:40 Creatinine 1.39 mg/dl (0.6-1.4) 06/18/23 16:40 Est Cr Clr Drug Dosing 59.1 ml/min 06/18/23 16:40 Est GFR ( Amer) 59.5 ml/min 06/18/23 16:40 Est GFR (Non-Af Amer) 51.3 ml/min 06/18/23 16:40 BUN/Creatinine Ratio 20.1 (10-20) H 06/18/23 16:40 Glucose 123 mg/dl (70-99(Fasting)) H 06/18/23 16:40 Calcium 9.7 mg/dl (8.6-10.3) 06/18/23 16:40 Total Bilirubin 0.5 mg/dl (0.2-1.0) 06/18/23 16:40 AST 29 U/L (13-39) 06/18/23 16:40 ALT 29 U/L (7-52) 06/18/23 16:40 Alkaline Phosphatase 65 U/L (34-104) 06/18/23 16:40 Total Protein 7.5 gm/dl (6.0-8.3) 06/18/23 16:40 Albumin 4.5 gm/dl (3.4-5.0) 06/18/23 16:40 Globulin 3.0 gm/dl (2.5-4.0) 06/18/23 16:40 Albumin/Globulin Ratio 1.5 (0.9-2) 06/18/23 16:40 Code Status & VTE Plan VTE Prophylaxis Plan VTE Prophylaxis will be ordered: Yes
[2023-06-18] MEDS ORDERED: METOPROLOL SUCC 25MG EXT REL TAB PO SCH (22:51)
[2023-06-18] MEDS ORDERED: POLYETHYLENE (MIRALAX) 17 GM PACK PO PRN (22:51)
[2023-06-18] MEDS ORDERED: HYDROmorphone INJ 0.5 MG/0.5 ML SYR IV PRN (22:51)
[2023-06-19] MEDS: METOPROLOL SUCC 25MG EXT REL TAB PO SCH ×2 (00:31→20:12)
[2023-06-19] MEDS: PIPERACILLIN/TAZOBACTAM 4.5 GM in DEXTROSE 5% MINI-B 100 ML IV SCH ×3 (00:31→14:04)
[2023-06-19] MEDS: SODIUM CHLORIDE 0.9% 1,000 ML IV SCH ×2 (00:32→10:32)
[2023-06-19] MEDS ORDERED: Nursing to Pharmacy Communication SCH (01:15)
[2023-06-19] MEDS: VANCOMYCIN HCL 1,250 MG in SODIUM CHLORIDE 0.9% 250 ML IV SCH ×2 (05:20→23:14)
[2023-06-19 06:00] LABS: Basophils # (auto) 0.06 K/uL (0.00-0.20); Basophils % (auto) 0.8 %; Eosinophils # (auto) 0.53 K/uL (0.00-0.50); Eosinophils % (auto) 6.6 %; Hemoglobin 11.2 g/dl (14.0-18.0); Immature Granulocytes # (auto) 0.02 K/uL (0.01-0.20); Immature Granulocytes % (auto) 0.3 %; Lymphocytes # (auto) 1.43 K/uL (1.20-3.40); Lymphocytes % (auto) 17.9 %; Mean Corpuscular Hemoglobin 30.6 pg (25.0-34.0); Mean Corpuscular Hgb Conc 33.9 g/dL (32.0-36.0); Mean Corpuscular Volume 90.2 fL (80.0-100.0); Mean Platelet Volume 11.6 fL (9.4-12.4); Monocytes # (auto) 0.84 K/uL (0.11-0.59); Monocytes % (auto) 10.5 %; Neutrophils # (auto) 5.09 K/uL (1.40-6.50); Neutrophils % (auto) 63.9 %; Platelet Count 204 K/uL (130-400); RDW Coefficient of Variation 12.6 % (11.5-14.5); RDW Standard Deviation 41.3 fL (36.4-46.3); Red Blood Count 3.66 M/uL (4.70-6.10); White Blood Count 7.97 K/ul (4.8-10.8)
[2023-06-19 06:11] LABS: BUN Creatinine Ratio 20.1 (10-20); Calcium 8.9 mg/dl (8.6-10.3); Creatinine Clr Calc Pharmacy 58.4 ml/min; Est GFR (African American) 59.5 ml/min; Est GFR (Non-African American) 51.3 ml/min; Magnesium 1.8 mg/dl (1.7-2.4); Potassium 4.1 mmol/L (3.5-5.1)
--- NOTE | 2023-06-19 06:23 | Pharmacy Report ---
Pharmacy PK ABX Note - Date of Service June 19, 2023 - Assessment and Plan Assessment * Mr Shaw is a 67 year old M receiving vancomycin/Zosyn for treatment of L thumb infection, ?tenosynovitis. * Failed outpt treatment w/ Augmentin. * PMH significant for prediabetes, CKD stage III * Ortho consulted. Plan Vancomycin * Loading dose: Vanc 2000 mg IV x 1 * Maintenance dose: Vanc 1250 mg IV every 18 hours * Regimen is predicted to achieve target AUC/TRE of 400-600 mg/L.hr * Will obtain vanc level in 1-2 days if pt still receiving vanc therapy. Zosyn 4.5gm IV q8h Pharmacy will continue to follow and will adjust dose/frequency as necessary. Thank you. Pharmacy has transitioned to AUC monitoring for vancomycin. AUC/TRE is the preferred PK/PD target and is associated with decreased risk of nephrotoxicity compared to traditional trough targets.
--- NOTE | 2023-06-19 07:31 | XRay Report ---
XR hand LT min 3V routine CLINICAL HISTORY: knife to thumb, now infected COMPARISON: Left second finger radiographs October 21, 2022. FINDINGS: A defect within the distal tuft of the distal phalanx of the left second finger is noted. There is no acute fracture within the left hand. No radiopaque foreign bodies are identified. There i s no evidence for acute osteomyelitis. There is severe triscaphe joint osteoarthritis. There is moder ate osteoarthritis within the articulations of the left thumb. IMPRESSION: 1. No fractures, radiopaque foreign bodies or evidence for acute osteomyelitis. 2. 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 ACT 112: Negative or not required by law. Electronically signed by: Peter Nicole M.D. 06/19/2023 7:30 AM
[2023-06-19 07:52] LABS: Estimated Average Glucose 108 mg/dl; Hemoglobin A1C 5.4 % (4.5-5.6)
[2023-06-19] MEDS: TORSEMIDE 10 MG TAB PO SCH (08:47)
[2023-06-19] MEDS: GABAPENTIN 100 MG CAP PO SCH ×3 (08:47→20:11)
[2023-06-19] MEDS: LOSARTAN POTASSIUM 50 MG TAB PO SCH (08:47)
[2023-06-19] MEDS: CLOPIDOGREL BISULFATE 75 MG TAB PO SCH (08:48)
[2023-06-19] MEDS: FAMOTIDINE 20 MG TAB PO SCH (08:48)
[2023-06-19] MEDS: hydroCHLOROthiazide 25 MG TAB PO SCH (08:48)
[2023-06-19] MEDS: ASPIRIN 81 MG ECTAB PO SCH (08:48)
[2023-06-19] MEDS: amLODIPine BESYLATE 5 MG TAB PO SCH (08:48)
[2023-06-19] MEDS: PANTOprazole 40 MG TAB PO SCH (08:49)
[2023-06-19] MEDS: SPIRONOLACTONE 25 MG TAB PO SCH (08:49)
[2023-06-19] MEDS: ROSUVASTATIN CALCIUM 20 MG TAB PO SCH (08:49)
[2023-06-19] MEDS ORDERED: METOPROLOL SUCC 25MG EXT REL TAB PO SCH (09:00)
--- NOTE | 2023-06-19 09:41 | Orthopedic Consultation ---
Date of Consultation June 19, 2023 Assessment & Plan (1) Flexor tenosynovitis of thumb: Discussed the diagnosis with the patient. He appears to have a mild case of flexor tenosynovitis, which has responded to less than 12 hours of IV antibiotics. Does not hold the thumb in a flexed position and does not have pain with passive extension, therefore I think his case is mild and we are catching it early. I think there is a reasonable chance that we can treat this with IV antibiotics alone. Therefore I would like to continue his IV antibiotics during the day today and we will allow him to eat today. However we like to keep him n.p.o. after midnight tonight, given the possibility of needing to operate on this tomorrow if he is not had any continued improvement. He should elevate his hand. Recommend no DVT prophylaxis since he is ambulatory And at low risk. History of Present Illness Attending Physician: Loreta Wolef MD History of Present Illness 67-year-old male with past med significant for hyperlipidemia, prediabetes, hiatal hernia, CAD status post stent, hypertension, mild ascending aortic dilatation, GERD, chronic kidney disease stage III, chronic pain, presents with a left thumb infection. Patient cut his left thumb with his knife on last Wednesday. He went to [facility] ER in [place] . Patient states no I&D was done he was discharged the same day from the ER. He was having a lot of pain and he made appointment with PCP on Wednesday and was prescribed Augmentin. He took antibiotic for last 4 days but was not improving. He is having a lot of pain and today developed swelling of the left thumb and having painful movements so decided come to the ER last night on Wednesday. He was admitted to the internal medicine service. He was started on vancomycin and Zosyn. Orthopedics was consulted given concerns for flexor tenosynovitis in his left thumb. Patient was seen and examined on the floor this morning. He reports that his thumb pain and swelling are improved from yesterday evening but not completely resolved. Denies any fevers but having chills. No other complaints. Resting comfortably in bed and hemodynamically stable. No headache. No runny nose or sore throat or cough. No trouble swallowing. No chest pain or shortness of breath. No nausea or vomiting. No abdominal pain. Normal bowel and bladder movements. Past medical history as mentioned above Past surgical history. Right shoulder arthroscopy. Cardiac cath s/p and placement. Colonoscopy. EGD with biopsy. Injection of lumbar and thoracic spine. Tonsillectomy. Left inguinal hernia repair. Right inguinal hernia repair. Repair of nasal septum. Right shoulder arthroscopy. Umbilical hernia repaired. Social history . No smoking. 5.8 standard drinks of alcohol per week. No drug use. Family history. Brother had colon cancer. Brother had heart disorder. Father had VA in 50s. Hypertension. Mother has hypertension. VA in 60s. Daughter has questionable MS. Son has allergies. Allergies Allergy/AdvReac Type Severity Reaction Status Date / Time morphine Allergy Severe ILL Unverified 05/21/22 20:34 tetracycline Allergy Mild RASH Verified 05/21/22 20:34 codeine Allergy Unknown Unknown Verified 05/21/22 20:34 shrimp AdvReac Mild NECK Verified 05/21/22 20:34 SWELLS IF HE EATS ALOT OF THEM enalapril AdvReac Cough Verified 05/21/22 20:34 Home Medications Medication Instructions Recorded Confirmed Type albuterol sulfate 90 mcg/actuation 2 puff inhalation Q4H PRN 06/18/23 06/18/23 History aerosol inhaler Shortness Of Breath Or Wheezing amlodipine 5 mg tablet 5 mg PO DAILY 06/18/23 06/18/23 History amoxicillin 875 mg-potassium 1 tab PO BID 06/18/23 06/18/23 History clavulanate 125 mg tablet aspirin 81 mg tablet,delayed 81 mg PO DAILY 06/18/23 06/18/23 History release clopidogrel 75 mg tablet 75 mg PO DAILY 06/18/23 06/18/23 History famotidine 20 mg tablet 20 mg PO DAILY 06/18/23 06/18/23 History gabapentin 100 mg capsule 100 mg PO TID 06/18/23 06/18/23 History hydrochlorothiazide 25 mg tablet 25 mg PO DAILY 06/18/23 06/18/23 History hydrocodone 5 mg-acetaminophen 325 1 tab PO Q6H PRN Pain 06/18/23 06/18/23 H istory mg tablet losartan 100 mg tablet 100 mg PO DAILY 06/18/23 06/18/23 History metoprolol succinate 25 mg 25 mg PO UD 06/18/23 06/18/23 History tablet,extended release 24 hr pantoprazole 40 mg tablet,delayed 40 mg PO DAILY 06/18/23 06/18/23 History release rosuvastatin 40 mg tablet 40 mg PO DAILY 06/18/23 06/18/23 History spironolactone 25 mg tablet 25 mg PO DAILY 06/18/23 06/18/23 History torsemide 5 mg tablet 5 mg PO DAILY 06/18/23 06/18/23 History Patient History Medical History Coronary artery disease Hyperlipidemia Hypertension Surgical History History of coronary artery stent placement Family History Other Family history non-contributory Social History Smoking Status: Never smoker Second Hand Exposure: No; Do You Dip or Chew Tobacco: No; Tobacco Cessation Education Requested by Patient: No Hx Alcohol Use: Yes Alcohol type: wine Hx Substance Use: No Preferred Language: Hungarian Communication Ability: Effective Video Manager Required: No Beliefs That Will Affect Care: Roman Catholic Roman Catholic Beliefs: Faith Current Living Situation: Other Current Living Situation Comment: spouse and niece Other Information That Helps Us Care for You: No Feels Safe at Home: Yes Safety Concerns: Feels Safe At This Time Assistive Devices: Glasses and Other Assistive Devices Comment: reading glasses Physical Exam Physical Exam: In general he is not ill-appearing, he is resting comfortably in bed in no acute distress. Alert and oriented x3. Afebrile. Left hand exam reveals the patient to have a laceration approximately 2 cm in length over the volar aspect of the MP joint of the thumb. There is no active drainage from this wound. There is swelling noted around the thumb and the incision, however the swelling is mild and not fusiform. Thumb is held in a fairly neutral position with no significant flexion. There is some faint erythema that extends onto the thenar eminence. He is tender to palpation over the course of the FPL tendon. However he is able to minimally fire the FPL tendon. He does not have pain with passive extension of the thumb. Results & Data Vital Signs (Past 12 Hours) Vital Signs Temp Pulse Resp BP Pulse Ox O2 Del Method 06/19/23 07:23 36.6 C 53 L 18 137/72 95 Room Air 06/19/23 00:30 58 L 128/71 06/18/23 23:26 Room Air 06/18/23 23:26 36.7 C 63 16 162/79 H 97 Room Air 06/18/23 23:26 Room Air 06/18/23 22:22 61 16 126/75 94 Room Air Laboratory Results Laboratory Results - last 48 hr 06/18/23 06/18/23 06/19/23 16:40 16:40 05:00 WBC 9.72 7.97 RBC 3.88 L 3.66 L Hgb 11.9 L 11.2 L Hct 34.9 L 33.0 L MCV 89.9 90.2 MCH 30.7 30.6 MCHC 34.1 33.9 RDW Std Deviation 41.7 41.3 RDW Coeff of Mary 12.7 12.6 Plt Count 257 204 MPV 11.7 11.6 Immature Gran % (Auto) 0.2 0.3 Neut % (Auto) 69.2 63.9 Lymph % (Auto) 14.8 17.9 [place] % (Auto) 9.0 10.5 Eos % (Auto) 5.6 6.6 Baso % (Auto) 1.2 0.8 Neut # (Auto) 6.73 H 5.09 Lymph # (Auto) 1.44 1.43 [place] # (Auto) 0.87 H 0.84 H Eos # (Auto) 0.54 H 0.53 H Baso # (Auto) 0.12 0.06 Immature Gran # (Auto) 0.02 0.02 ESR Sodium 136 Potassium 4.0 Chloride 102 Carbon Dioxide 24 Anion Gap 10 BUN 28 H Creatinine 1.39 Est Cr Clr Drug Dosing 59.1 Est GFR ( Amer) 59.5 Est GFR (Non-Af Amer) 51.3 BUN/Creatinine Ratio 20.1 H Glucose 123 H Estimat Average Glucose Hemoglobin A1c Calcium 9.7 Magnesium Total Bilirubin 0.5 AST 29 ALT 29 Alkaline Phosphatase 65 C-Reactive Protein Total Protein 7.5 Albumin 4.5 Globulin 3.0 Albumin/Globulin Ratio 1.5 06/19/23 06/19/23 06/19/23 05:00 05:00 05:00 WBC RBC Hgb Hct MCV MCH MCHC RDW Std Deviation RDW Coeff of Mary Plt Count MPV Immature Gran % (Auto) Neut % (Auto) Lymph % (Auto) [place] % (Auto) Eos % (Auto) Baso % (Auto) Neut # (Auto) Lymph # (Auto) [place] # (Auto) Eos # (Auto) Baso # (Auto) Immature Gran # (Auto) ESR 42 H Sodium 137 Potassium 4.1 Chloride 105 Carbon Dioxide 24 Anion Gap 8 BUN 28 H Creatinine 1.39 Est Cr Clr Drug Dosing 58.4 Est GFR ( Amer) 59.5 Est GFR (Non-Af Amer) 51.3 BUN/Creatinine Ratio 20.1 H Glucose 108 H Estimat Average Glucose 108 Hemoglobin A1c 5.4 Calcium 8.9 Magnesium 1.8 Total Bilirubin AST ALT Alkaline Phosphatase C-Reactive Protein Total Protein Albumin Globulin Albumin/Globulin Ratio 06/19/23 05:00 WBC RBC Hgb Hct MCV MCH MCHC RDW Std Deviation RDW Coeff of Mary Plt Count MPV Immature Gran % (Auto) Neut % (Auto) Lymph % (Auto) [place] % (Auto) Eos % (Auto) Baso % (Auto) Neut # (Auto) Lymph # (Auto) [place] # (Auto) Eos # (Auto) Baso # (Auto) Immature Gran # (Auto) ESR Sodium Potassium Chloride Carbon Dioxide Anion Gap BUN Creatinine Est Cr Clr Drug Dosing Est GFR ( Amer) Est GFR (Non-Af Amer) BUN/Creatinine Ratio Glucose Estimat Average Glucose Hemoglobin A1c Calcium Magnesium Total Bilirubin AST ALT Alkaline Phosphatase C-Reactive Protein 3.82 H Total Protein Albumin Globulin Albumin/Globulin Ratio ESR and CRP are elevated. His white count however is normal. Diagnostic Findings Hand x-rays that were done in the emergency room demonstrate mild arthritis in the MP joint and the IP joint of the thumb. Moderate arthritis in the CMC joint. No foreign bodies are noted. There is no gas in the soft tissues. No fractures.
[2023-06-19] MEDS: HYDROCODONE/ACETAMOPHEN 5/325MG TAB PO PRN ×3 (10:22→23:22)
--- NOTE | 2023-06-19 10:37 | Hospitalist Progress Note ---
Date of Service June 19, 2023 Assessment & Plan (1) Laceration of left thumb with infection: Plan: Mr. Shaw is a 67-year-old gentleman with past med significant for hyperlipidemia, prediabetes, hiatal hernia, obstructive CAD status post stent, hypertension, mild ascending aortic dilatation, GERD, chronic kidney disease stage III, chronic pain, who was admitted 06/18 due to left thumb infection that did not resolve with course of Augmentin. Patient cut finger over a week ago with hunting knife and trialed Augmentin, but noted increased swelling and redness. Patient started empirically on vanc/zosyn. CRP 3.82, ESR 42. Ortho evaluated patient with plans for potential debridement tomorrow 06/20. #Flexor tenosynovitis #Left thumb cellulitis Responding with IV antibiotics Ortho on cosult, ?debridement tomorrow 06/20 Continue empiric coverage with Vanc/Zosyn Pain control prn NPO midnight for ?debridement per Ortho #Asymptomatic bradycardia #Obstructive CAD s/p stent 2004 with mild instent stenosis #HTN #HLD Continue Amlodipine, HCTZ, Spironolactone, Losartan, Torsemide Reduced Metoprolol 12.5mg daily given HR in low 50s Continue rosuvastatin 40mg #CKD stage III Creatinine 1.39, stable We will follow labs #Prediabetes 5.4% stable DVT prophylaxis SCDs for now Dispo: contingent on ortho, abx Full code Admission and Anticipated Discharge Date Admission Date: June 18, 2023 Subjective NAEO Reports notable improvement in pain and some return of ROM. Denies any fevers, night sweats, NV or other acute concerns Tolerating breakfast and feels well overall. Notes tentative debridement per ortho tomorrow Review of Systems Review of Systems: All systems reviewed & are unremarkable except as noted in Subjective Physical Exam Constitutional: WD/WN, vitals as above Respiratory: normal respiratory effort, lungs clear to auscultation Cardiovascular: RRR, no murmur, no edema Musculoskeletal: no cyanosis or clubbing, extremities motor strength 5/5 Skin: left thumb with circumferential swelling, mild erythema with small well approximated laceration on first DIP Results & Data Results & Data Vital Signs (Past 12 Hours) Vital Signs Temp Pulse Resp BP Pulse Ox O2 Del Method 06/19/23 07:23 36.6 C 53 L 18 137/72 95 Room Air 06/19/23 00:30 58 L 128/71 06/18/23 23:26 Room Air 06/18/23 23:26 36.7 C 63 16 162/79 H 97 Room Air 06/18/23 23:26 Room Air 06/18/23 22:22 61 16 126/75 94 Room Air Laboratory Results Short CBC 06/18/23 06/19/23 Range/Units 16:40 05:00 WBC 9.72 7.97 (4.8-10.8) K/ul Hgb 11.9 L 11.2 L (14.0-18.0) g/dl Hct 34.9 L 33.0 L (42.0-52.0) % Plt Count 257 204 (130-400) K/uL BMP 06/18/23 06/19/23 16:40 05:00 Sodium 136 137 Potassium 4.0 4.1 Chloride 102 105 Carbon Dioxide 24 24 BUN 28 H 28 H Creatinine 1.39 1.39 Glucose 123 H 108 H Calcium 9.7 8.9 Liver Function 06/18/23 Range/Units 16:40 Total Bilirubin 0.5 (0.2-1.0) mg/dl AST 29 (13-39) U/L ALT 29 (7-52) U/L Alkaline Phosphatase 65 (34-104) U/L Albumin 4.5 (3.4-5.0) gm/dl Medications Administered Home Medications Medication Instructions Recorded Confirmed Last Taken albuterol sulfate 90 mcg/actuation 2 puff inhalation Q4H PRN 06/18/23 06/18/23 Unknown aerosol inhaler Shortness Of Breath Or Wheezing amlodipine 5 mg tablet 5 mg PO DAILY 06/18/23 06/18/23 Unknown amoxicillin 875 mg-potassium 1 tab PO BID 06/18/23 06/18/23 Unknown clavulanate 125 mg tablet aspirin 81 mg tablet,delayed 81 mg PO DAILY 06/18/23 06/18/23 Unknown release clopidogrel 75 mg tablet 75 mg PO DAILY 06/18/23 06/18/23 Unknown famotidine 20 mg tablet 20 mg PO DAILY 06/18/23 06/18/23 Unknown gabapentin 100 mg capsule 100 mg PO TID 06/18/23 06/18/23 Unknown hydrochlorothiazide 25 mg tablet 25 mg PO DAILY 06/18/23 06/18/23 Unknown hydrocodone 5 mg-acetaminophen 325 1 tab PO Q6H PRN Pain 06/18/23 06/18/23 Unknown mg tablet losartan 100 mg tablet 100 mg PO DAILY 06/18/23 06/18/23 Unknown metoprolol succinate 25 mg 25 mg PO UD 06/18/23 06/18/23 Unknown tablet,extended release 24 hr pantoprazole 40 mg tablet,delayed 40 mg PO DAILY 06/18/23 06/18/23 Unknown release rosuvastatin 40 mg tablet 40 mg PO DAILY 06/18/23 06/18/23 Unknown spironolactone 25 mg tablet 25 mg PO DAILY 06/18/23 06/18/23 Unknown torsemide 5 mg tablet 5 mg PO DAILY 06/18/23 06/18/23 Unknown Active Medications Generic Name Dose Route Start Last Admin Trade Name Freq PRN Reason Stop Dose Admin Hydrocodone Bitart/Acetaminophen 1 tab 06/18/23 22:51 06/19/23 10:22 Hydrocodone/Acetamophen 5/325mg Tab PO 07/02/23 22:50 1 tab Q6H PRN Administration Moderate Pain (Scale 4, 5, 6) Amlodipine Besylate 5 mg 06/19/23 09:00 06/19/23 08:48 Amlodipine Besylate 5 Mg Tab PO 07/19/23 08:59 5 mg DAILY PRACHI Administration Aspirin 81 mg 06/19/23 09:00 06/19/23 08:48 Aspirin 81 Mg Ectab PO 07/19/23 08:59 81 mg DAILY PRACHI Administration Clopidogrel Bisulfate 75 mg 06/19/23 09:00 06/19/23 08:48 Clopidogrel Bisulfate 75 Mg Tab PO 07/19/23 08:59 75 mg DAILY PRACHI Administration Famotidine 20 mg 06/19/23 09:00 06/19/23 08:48 Famotidine 20 Mg Tab PO 07/19/23 08:59 20 mg DAILY PRACHI Administration Gabapentin 100 mg 06/19/23 09:00 06/19/23 08:47 Gabapentin 100 Mg Cap PO 07/19/23 08:59 100 mg TID PRACHI Administration Hydrochlorothiazide 25 mg 06/19/23 09:00 06/19/23 08:48 Hydrochlorothiazide 25 Mg Tab PO 07/19/23 08:59 25 mg DAILY PRACHI Administration Hydromorphone HCl 0.5 mg 06/18/23 22:51 06/19/23 06:34 Hydromorphone Inj 0.5 Mg/0.5 Ml Syr IV 07/02/23 22:50 0.5 mg Q4H PRN Administration Severe Pain (Scale 7, 8, 9,10) Piperacillin Sod/Tazobactam 100 mls @ 25 mls/hr 06/18/23 23:00 06/19/23 07:28 Sod 4.5 gm/ Dextrose IV 06/25/23 22:59 25 mls/hr Q8H PRACHI Administration Protocol Vancomycin HCl 1,250 mg/ 275 mls @ 200 mls/hr 06/19/23 06:00 06/19/23 07:16 Sodium Chloride IV 06/26/23 05:59 Infused Q18H PRACHI Infusion Losartan Potassium 100 mg 06/19/23 09:00 06/19/23 08:47 Losartan Potassium 50 Mg Tab PO 07/19/23 08:59 100 mg DAILY PRACHI Administration Metoprolol Succinate 12.5 mg 06/18/23 22:51 06/19/23 00:31 Metoprolol Succ 25mg Ext Rel Tab PO 07/18/23 22:50 Not Given PM PRACHI Pantoprazole Sodium 40 mg 06/19/23 09:00 06/19/23 08:49 Pantoprazole 40 Mg Tab PO 07/19/23 08:59 40 mg DAILY PRACHI Administration Rosuvastatin Calcium 40 mg 06/19/23 09:00 06/19/23 08:49 Rosuvastatin Calcium 20 Mg Tab PO 07/19/23 08:59 40 mg DAILY PRACHI Administration Spironolactone 25 mg 06/19/23 09:00 06/19/23 08:49 Spironolactone 25 Mg Tab PO 07/19/23 08:59 25 mg DAILY PRACHI Administration Torsemide 5 mg 06/19/23 09:00 06/19/23 08:47 Torsemide 10 Mg Tab PO 07/19/23 08:59 5 mg DAILY PRACHI Administration
[2023-06-19] MEDS ORDERED: GADOBUTROL 65ML VIAL IV ONE (12:10)
--- NOTE | 2023-06-19 12:30 | Magnetic Resonance Report ---
MR hand LT wo/w con CLINICAL HISTORY: Left hand laceration. Infection. Evaluate for abscess. COMPARISON STUDY: Left hand radiographs June 18, 2023. TECHNIQUE: Utilizing a 1.5 Karen magnet and a dedicated coil, multiplanar, multi echo imaging of the left hand was performed pre and postcontrast administration. Intravenous injection of 9.5 cc of Gadav ist was uneventful. FINDINGS: A marker was placed on the left thumb at site of laceration. This overlies the palmar media l aspect of the left first metacarpophalangeal joint. No rim-enhancing fluid collection is identified to suggest an abscess. There is no marrow edema to suggest acute osteomyelitis. There is moderate os teoarthritis of the left first metacarpophalangeal and interphalangeal joints. No fractures are evide nt. Note is made of moderate edema and enhancement within the left or traumatic. Increased fluid and associated enhancement within the tendon sheath of the left flexor pollicis longus. The tendons appea r intact. The findings suggest tenosynovitis. Otherwise, amount of fluid within the tendon sheaths is within normal limits. Carpal bones are intact. There is moderate to severe osteoarthritis of the lef t triscaphe joint. IMPRESSION: 1. Increased fluid and associated enhancement within the tendon sheath of the left flexor pollicis lo ngus. This suggests tenosynovitis, possibly infectious. Tendon is intact. 2. Edema and enhancement within the left flexure pollicis brevis. This may be infectious or traumatic . 3. No rim enhancing fluid collection to suggest abscess. No fractures. 4. 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 ACT 112: Negative or not required by law. Electronically signed by: Peter Nicole M.D. 06/19/2023 12:27 PM
[2023-06-19] MEDS: ACETAMINOPHEN 325 MG TAB PO PRN (20:11)
[2023-06-20] MEDS: PIPERACILLIN/TAZOBACTAM 4.5 GM in DEXTROSE 5% MINI-B 100 ML IV SCH ×2 (00:45→07:27)
[2023-06-20] MEDS: HYDROCODONE/ACETAMOPHEN 5/325MG TAB PO PRN ×2 (05:18→15:17)
[2023-06-20] MEDS: ALBUTEROL HFA 8 GM INHALER INH PRN ×2 (05:38→21:42)
--- NOTE | 2023-06-20 07:59 | Anesthesiology Consultation ---
Date of Service June 20, 2023 Assessment & Plan (1) Encounter for pre-operative examination: Chart Review Chart Review: Acceptable Risk for Surgery History Surgery Operation Date: 06/20/23 09:00 Proposed Procedures p Incision and Drainage left thumb(Left) - Bismark Chadwick MD Height/Weight Height: 5 ft 10 in Weight: 96.2 kg Allergies Allergy/AdvReac Type Severity Reaction Status Date / Time morphine Allergy Severe ILL Unverified 05/21/22 20:34 tetracycline Allergy Mild RASH Verified 05/21/22 20:34 codeine Allergy Unknown Unknown Verified 05/21/22 20:34 shrimp AdvReac Mild NECK Verified 05/21/22 20:34 SWELLS IF HE EATS ALOT OF THEM enalapril AdvReac Cough Verified 05/21/22 20:34 Medications Home Medications Medication Instructions Recorded Confirmed Last Taken albuterol sulfate 90 mcg/actuation 2 puff inhalation Q4H PRN 06/18/23 06/18/23 Unknown aerosol inhaler Shortness Of Breath Or Wheezing amlodipine 5 mg tablet 5 mg PO DAILY 06/18/23 06/18/23 Unknown amoxicillin 875 mg-potassium 1 tab PO BID 06/18/23 06/18/23 Unknown clavulanate 125 mg tablet aspirin 81 mg tablet,delayed 81 mg PO DAILY 06/18/23 06/18/23 Unknown release clopidogrel 75 mg tablet 75 mg PO DAILY 06/18/23 06/18/23 Unknown famotidine 20 mg tablet 20 mg PO DAILY 06/18/23 06/18/23 Unknown gabapentin 100 mg capsule 100 mg PO TID 06/18/23 06/18/23 Unknown hydrochlorothiazide 25 mg tablet 25 mg PO DAILY 06/18/23 06/18/23 Unknown hydrocodone 5 mg-acetaminophen 325 1 tab PO Q6H PRN Pain 06/18/23 06/18/23 Unknown mg tablet losartan 100 mg tablet 100 mg PO DAILY 06/18/23 06/18/23 Unknown metoprolol succinate 25 mg 25 mg PO UD 06/18/23 06/18/23 Unknown tablet,extended release 24 hr pantoprazole 40 mg tablet,delayed 40 mg PO DAILY 06/18/23 06/18/23 Unknown release rosuvastatin 40 mg tablet 40 mg PO DAILY 06/18/23 06/18/23 Unknown spironolactone 25 mg tablet 25 mg PO DAILY 06/18/23 06/18/23 Unknown torsemide 5 mg tablet 5 mg PO DAILY 06/18/23 06/18/23 Unknown Active Medications Generic Name Dose Route Start Last Admin Trade Name Sharon PRN Reason Stop Dose Admin Acetaminophen 650 mg 06/18/23 22:51 06/19/23 20:11 Acetaminophen 325 Mg Tab PO 07/18/23 22:50 650 mg Q4H PRN Administration pain/fever Hydrocodone Bitart/Acetaminophen 1 tab 06/18/23 22:51 06/20/23 05:18 Hydrocodone/Acetamophen 5/325mg Tab PO 07/02/23 22:50 1 tab Q6H PRN Administration Moderate Pain (Scale 4, 5, 6) Albuterol 2 puffs 06/18/23 22:51 06/20/23 05:38 Albuterol Hfa 8 Gm Inhaler INH 07/18/23 22:50 2 puffs Q4H PRN Administration Shortness Of Breath Or Wheezin Amlodipine Besylate 5 mg 06/19/23 09:00 06/19/23 08:48 Amlodipine Besylate 5 Mg Tab PO 07/19/23 08:59 5 mg DAILY PRACHI Administration Aspirin 81 mg 06/19/23 09:00 06/19/23 08:48 Aspirin 81 Mg Ectab PO 07/19/23 08:59 81 mg DAILY PRACHI Administration Clopidogrel Bisulfate 75 mg 06/19/23 09:00 06/19/23 08:48 Clopidogrel Bisulfate 75 Mg Tab PO 07/19/23 08:59 75 mg DAILY PRACHI Administration Famotidine 20 mg 06/19/23 09:00 06/19/23 08:48 Famotidine 20 Mg Tab PO 07/19/23 08:59 20 mg DAILY PRACHI Administration Gabapentin 100 mg 06/19/23 09:00 06/19/23 20:11 Gabapentin 100 Mg Cap PO 07/19/23 08:59 100 mg TID PRACHI Administration Hydrochlorothiazide 25 mg 06/19/23 09:00 06/19/23 08:48 Hydrochlorothiazide 25 Mg Tab PO 07/19/23 08:59 25 mg DAILY PRACHI Administration Hydromorphone HCl 0.5 mg 06/18/23 22:51 06/19/23 06:34 Hydromorphone Inj 0.5 Mg/0.5 Ml Syr IV 07/02/23 22:50 0.5 mg Q4H PRN Administration Severe Pain (Scale 7, 8, 9,10) Piperacillin Sod/Tazobactam 100 mls @ 25 mls/hr 06/18/23 23:00 06/20/23 07:27 Sod 4.5 gm/ Dextrose IV 06/25/23 22:59 25 mls/hr Q8H PRACHI Administration Protocol Vancomycin HCl 1,250 mg/ 275 mls @ 200 mls/hr 06/19/23 06:00 06/20/23 00:45 Sodium Chloride IV 06/26/23 05:59 Infused Q18H PRACHI Infusion Losartan Potassium 100 mg 06/19/23 09:00 06/19/23 08:47 Losartan Potassium 50 Mg Tab PO 07/19/23 08:59 100 mg DAILY PRACHI Administration Metoprolol Succinate 12.5 mg 06/18/23 22:51 06/19/23 20:12 Metoprolol Succ 25mg Ext Rel Tab PO 07/18/23 22:50 12.5 mg PM PRACHI Administration Pantoprazole Sodium 40 mg 06/19/23 09:00 06/19/23 08:49 Pantoprazole 40 Mg Tab PO 07/19/23 08:59 40 mg DAILY PRACHI Administration Rosuvastatin Calcium 40 mg 06/19/23 09:00 06/19/23 08:49 Rosuvastatin Calcium 20 Mg Tab PO 07/19/23 08:59 40 mg DAILY PRACHI Administration Spironolactone 25 mg 06/19/23 09:00 06/19/23 08:49 Spironolactone 25 Mg Tab PO 07/19/23 08:59 25 mg DAILY PRACHI Administration Torsemide 5 mg 06/19/23 09:00 06/19/23 08:47 Torsemide 10 Mg Tab PO 07/19/23 08:59 5 mg DAILY PRACHI Administration Past Medical History Medical History (Updated 06/20/23 @ 07:59 by Malachi Leo MD) Anemia Coronary artery disease Hyperlipidemia Hypertension Past Family History Family History Other Family history non-contributory Past Surgical History Surgical History History of coronary artery stent placement Social History Smoking Status: Never smoker Do You Dip or Chew Tobacco: No Hx Alcohol Use: Yes Alcohol type: wine alcohol intake frequency: a few times a month Hx Substance Use: No Physical Exam Vital Signs Last Vital Signs Temp 36.3 C L 06/20/23 07:18 Pulse 65 06/20/23 07:18 Resp 18 06/20/23 07:18 BP 126/65 06/20/23 07:18 Pulse Ox 94 06/20/23 07:18 O2 Del Method Room Air 06/20/23 07:18 Testing Laboratory Results 06/19/23 05:00 06/19/23 05:00 Hemoglobin A1c 5.4 % (4.5-5.6) 06/19/23 05:00 Electrocardiogram Date: 05/21/23 Findings: + NSR @ (99)
--- NOTE | 2023-06-20 08:31 | Hospitalist Progress Note ---
Date of Service June 20, 2023 Assessment & Plan (1) Laceration of left thumb with infection: Plan: Mr. Shaw is a 67-year-old gentleman with past med significant for hyperlipidemia, prediabetes, hiatal hernia, obstructive CAD status post stent, hypertension, mild ascending aortic dilatation, GERD, chronic kidney disease stage III, chronic pain, who was admitted 06/18 due to left thumb infection that did not resolve with course of Augmentin. Patient cut finger over a week ago with hunting knife and trialed Augmentin, but noted increased swelling and redness. Patient started empirically on vanc/zosyn. CRP 3.82, ESR 42. Ortho planned for debridement this am #Flexor tenosynovitis #Left thumb cellulitis Responding with IV antibiotics Ortho on cosult, ?debridement tomorrow 06/20 Continue empiric coverage with Vanc/Zosyn Pain control prn s/p debridement with ortho -Continue IV abx with plans for ID consult in am after 24 hours of growth on wound cultures -labs and blood cultures in am #Asymptomatic bradycardia #Obstructive CAD s/p stent 2004 with mild instent stenosis #HTN #HLD Continue Amlodipine, HCTZ, Spironolactone, Losartan, Torsemide Continue reduced Metoprolol 12.5mg daily given HR in low 50s Continue rosuvastatin 40mg #CKD stage III Creatinine 1.39, stable We will follow labs #Prediabetes 5.4% stable DVT prophylaxis SCDs for now Dispo: contingent on ortho, abx Full code Admission and Anticipated Discharge Date Admission Date: June 18, 2023 Subjective NAEO, off for debridement Review of Systems Review of Systems: All systems reviewed & are unremarkable except as noted in Subjective Physical Exam Constitutional: WD/WN, vitals as above Respiratory: normal respiratory effort, lungs clear to auscultation Cardiovascular: RRR, no murmur, no edema Skin: similar degree of swelling of left thumb as prior examination Results & Data Results & Data Vital Signs (Past 12 Hours) Vital Signs Temp Pulse Resp BP Pulse Ox O2 Del Method 06/20/23 07:18 36.3 C L 65 18 126/65 94 Room Air 06/20/23 05:38 56 L 18 96 Room Air Laboratory Results [facility] 06/20/23 12:05 Creatinine 1.46 H Medications Administered Home Medications Medication Instructions Recorded Confirmed Last Taken albuterol sulfate 90 mcg/actuation 2 puff inhalation Q4H PRN 06/18/23 06/18/23 Unknown aerosol inhaler Shortness Of Breath Or Wheezing amlodipine 5 mg tablet 5 mg PO DAILY 06/18/23 06/18/23 Unknown amoxicillin 875 mg-potassium 1 tab PO BID 06/18/23 06/18/23 Unknown clavulanate 125 mg tablet aspirin 81 mg tablet,delayed 81 mg PO DAILY 06/18/23 06/18/23 Unknown release clopidogrel 75 mg tablet 75 mg PO DAILY 06/18/23 06/18/23 Unknown famotidine 20 mg tablet 20 mg PO DAILY 06/18/23 06/18/23 Unknown gabapentin 100 mg capsule 100 mg PO TID 06/18/23 06/18/23 Unknown hydrochlorothiazide 25 mg tablet 25 mg PO DAILY 06/18/23 06/18/23 Unknown hydrocodone 5 mg-acetaminophen 325 1 tab PO Q6H PRN Pain 06/18/23 06/18/23 Unk nown mg tablet losartan 100 mg tablet 100 mg PO DAILY 06/18/23 06/18/23 Unknown metoprolol succinate 25 mg 25 mg PO UD 06/18/23 06/18/23 Unknown tablet,extended release 24 hr pantoprazole 40 mg tablet,delayed 40 mg PO DAILY 06/18/23 06/18/23 Unknown release rosuvastatin 40 mg tablet 40 mg PO DAILY 06/18/23 06/18/23 Unknown spironolactone 25 mg tablet 25 mg PO DAILY 06/18/23 06/18/23 Unknown torsemide 5 mg tablet 5 mg PO DAILY 06/18/23 06/18/23 Unknown Active Medications Generic Name Dose Route Start Last Admin Trade Name [facility] PRN Reason Stop Dose Admin Acetaminophen 650 mg 06/18/23 22:51 06/19/23 20:11 Acetaminophen 325 Mg Tab PO 07/18/23 22:50 650 mg Q4H PRN Administration pain/fever Hydrocodone Bitart/Acetaminophen 1 tab 06/18/23 22:51 06/20/23 05:18 Hydrocodone/Acetamophen 5/325mg Tab PO 07/02/23 22:50 1 tab Q6H PRN Administration Moderate Pain (Scale 4, 5, 6) Albuterol 2 puffs 06/18/23 22:51 06/20/23 05:38 Albuterol Hfa 8 Gm Inhaler INH 07/18/23 22:50 2 puffs Q4H PRN Administration Shortness Of Breath Or Wheezin Amlodipine Besylate 5 mg 06/19/23 09:00 06/19/23 08:48 Amlodipine Besylate 5 Mg Tab PO 07/19/23 08:59 5 mg DAILY PRACHI Administration Aspirin 81 mg 06/19/23 09:00 06/19/23 08:48 Aspirin 81 Mg Ectab PO 07/19/23 08:59 81 mg DAILY PRACHI Administration Clopidogrel Bisulfate 75 mg 06/19/23 09:00 06/19/23 08:48 Clopidogrel Bisulfate 75 Mg Tab PO 07/19/23 08:59 75 mg DAILY PRACHI Administration Famotidine 20 mg 06/19/23 09:00 06/19/23 08:48 Famotidine 20 Mg Tab PO 07/19/23 08:59 20 mg DAILY PRACHI Administration Gabapentin 100 mg 06/19/23 09:00 06/19/23 20:11 Gabapentin 100 Mg Cap PO 07/19/23 08:59 100 mg TID PRACHI Administration Hydrochlorothiazide 25 mg 06/19/23 09:00 06/19/23 08:48 Hydrochlorothiazide 25 Mg Tab PO 07/19/23 08:59 25 mg DAILY PRACHI Administration Hydromorphone HCl 0.5 mg 06/18/23 22:51 06/19/23 06:34 Hydromorphone Inj 0.5 Mg/0.5 Ml Syr IV 07/02/23 22:50 0.5 mg Q4H PRN Administration Severe Pain (Scale 7, 8, 9,10) Piperacillin Sod/Tazobactam 100 mls @ 25 mls/hr 06/18/23 23:00 06/20/23 07:27 Sod 4.5 gm/ Dextrose IV 06/25/23 22:59 25 mls/hr Q8H PRACHI Administration Protocol Vancomycin HCl 1,250 mg/ 275 mls @ 200 mls/hr 06/19/23 06:00 06/20/23 00:45 Sodium Chloride IV 06/26/23 05:59 Infused Q18H PRACHI Infusion Losartan Potassium 100 mg 06/19/23 09:00 06/19/23 08:47 Losartan Potassium 50 Mg Tab PO 07/19/23 08:59 100 mg DAILY PRACHI Administration Metoprolol Succinate 12.5 mg 06/18/23 22:51 06/19/23 20:12 Metoprolol Succ 25mg Ext Rel Tab PO 07/18/23 22:50 12.5 mg PM PRACHI Administration Pantoprazole Sodium 40 mg 06/19/23 09:00 06/19/23 08:49 Pantoprazole 40 Mg Tab PO 07/19/23 08:59 40 mg DAILY PRACHI Administration Rosuvastatin Calcium 40 mg 06/19/23 09:00 06/19/23 08:49 Rosuvastatin Calcium 20 Mg Tab PO 07/19/23 08:59 40 mg DAILY PRACHI Administration Spironolactone 25 mg 06/19/23 09:00 06/19/23 08:49 Spironolactone 25 Mg Tab PO 07/19/23 08:59 25 mg DAILY PRACHI Administration Torsemide 5 mg 06/19/23 09:00 06/19/23 08:47 Torsemide 10 Mg Tab PO 07/19/23 08:59 5 mg DAILY PRACHI Administration
--- NOTE | 2023-06-20 09:37 | Orthopedic Progress Note ---
Date of Service June 20, 2023 Assessment & Plan (1) Flexor tenosynovitis of thumb: Plan: Discussed the diagnosis with the patient. I think he is improved a little bit from yesterday, however still is having a lot of discomfort in the thumb and his MRI shows fluid within the flexor tendon sheath which is consistent with his exam. I think it is in his interest that we do an irrigation and debridement of the FPL tendon sheath of the thumb. This would decompress the fluid as well as allow us to get cultures, and likely decrease the risk of fdc problems with the thumb. He has been n.p.o. since midnight. We will proceed to the operating room today. Readmitted to the internal medicine service after surgery. Admission and Anticipated Discharge Date Admission Date: June 18, 2023 Subjective Patient has been on IV antibiotics since saw him 24 hours ago. He reports that although his swelling that he had onto the dorsum of the hand including the index and long finger was is improved his thumb feels about the same. He says he has constant pain in the thumb. Difficulty flexing the thumb. Has not had any fevers or chills. Physical Exam Physical Exam: In general he is not ill-appearing, he is resting comfortably in bed in no acute distress. Alert and oriented x3. Afebrile. Left hand exam reveals the patient to have a laceration approximately 2 cm in length over the volar aspect of the MP joint of the thumb. There is no active drainage from this wound. There is swelling noted around the thumb and the incision, however the swelling is mild and not fusiform. Thumb is held in a fairly neutral position with no significant flexion. There is some faint erythema that extends onto the thenar eminence. This is improved from yesterday but has not completely gone back to normal. He is tender to palpation over the course of the FPL tendon. From approximately the MP joint flexion crease to the IP joint flexion crease. Not having any tenderness into the thenar eminence. No tenderness distal to the IP joint. These are improved from yesterday. He is able to minimally fire the FPL tendon,but it still hurts similar to yesterday. He does not have pain with passive extension of the thumb. Neurovascular intact. Results & Data Vital Signs (Past 12 Hours) Vital Signs Temp Pulse Resp BP Pulse Ox O2 Del Method 06/20/23 07:18 36.3 C L 65 18 126/65 94 Room Air 06/20/23 05:38 56 L 18 96 Room Air
[2023-06-20] MEDS: CLOPIDOGREL BISULFATE 75 MG TAB PO SCH (09:47)
[2023-06-20] MEDS: amLODIPine BESYLATE 5 MG TAB PO SCH (09:47)
[2023-06-20] MEDS: GABAPENTIN 100 MG CAP PO SCH ×3 (09:47→21:01)
[2023-06-20] MEDS: METOPROLOL SUCC 25MG EXT REL TAB PO SCH ×2 (09:48→21:02)
[2023-06-20] MEDS: ROSUVASTATIN CALCIUM 20 MG TAB PO SCH (09:48)
[2023-06-20] MEDS: SPIRONOLACTONE 25 MG TAB PO SCH (09:48)
[2023-06-20] MEDS: TORSEMIDE 10 MG TAB PO SCH (09:48)
[2023-06-20] MEDS: hydroCHLOROthiazide 25 MG TAB PO SCH (09:48)
[2023-06-20] MEDS: FAMOTIDINE 20 MG TAB PO SCH (09:48)
[2023-06-20] MEDS: LOSARTAN POTASSIUM 50 MG TAB PO SCH (09:48)
[2023-06-20] MEDS: PANTOprazole 40 MG TAB PO SCH (09:49)
[2023-06-20] MEDS: ASPIRIN 81 MG ECTAB PO SCH (09:49)
[2023-06-20] MEDS: ACETAMINOPHEN 325 MG TAB PO PRN (09:53)
[2023-06-20] MEDS ORDERED: MIDAZOLAM HCL 1 MG/ML 2ML VIAL ONE (10:50)
[2023-06-20] MEDS ORDERED: fentaNYL citrate PF 100 MCG/2 ML VIAL ONE (10:51)
[2023-06-20] MEDS ORDERED: PROPOFOL IV EMULSION 10 MG/ML 20 ML VIAL IV ONE ×2 (10:52→13:02)
[2023-06-20] MEDS ORDERED: LIDOCAINE 2% 2 ML VIAL/AMP(20MG/ML) INFIL ONE ×2 (10:52→13:02)
[2023-06-20] MEDS ORDERED: BUPIVACAINE/EPINEPHRINE 0.25% 1:200,000 30 ML VIAL ONE (11:52)
[2023-06-20] MEDS ORDERED: ONDANSETRON INJ 2 MG/ML 2 ML VIAL IV PRN ×2 (12:25→14:44)
[2023-06-20] MEDS ORDERED: KETOROLAC 30 MG/ML VIAL IV PRN (12:25)
[2023-06-20] MEDS ORDERED: PROMETHAZINE HCL 6.25 MG in SODIUM CHLORIDE 0.9% 50 ML IV PRN (12:25)
[2023-06-20] MEDS ORDERED: ATROPINE SULFATE 0.1 MG/ML 10ML SYR IV PRN (12:25)
[2023-06-20 12:33] LABS: Creatinine Clr Calc Pharmacy 55.6 ml/min; Est GFR (African American) 56.1 ml/min; Est GFR (Non-African American) 48.4 ml/min
[2023-06-20] MEDS ORDERED: ONDANSETRON INJ 2 MG/ML 2 ML VIAL ONE (13:02)
--- NOTE | 2023-06-20 13:51 | Operative Report ---
Post Operative Report Pre & Post Diagnosis Operation Date: 06/20/23 09:00 Pre-Op Diagnosis: Flexor tenosynovitis of thumb. Post-Op Diagnosis: Flexor tenosynovitis of thumb. I identified the patient and participated in the time-out.: Yes Procedure Operation Date: 06/20/23 09:00 Actual Procedures p Incision and Drainage left thumb, flexor tendon repair.(Left) - Bismark Chadwick MD Surgeon Bismark Chadwick MD Early Childhood Specialist Jacinda Becker MD Estimated Blood Loss 1 Findings Consistent with Post-Op Diagnosis Same as postoperative diagnosis. Specimens Purulent fluid from within the flexor tendon sheath sent for culture and sensitivity. Description of Procedure See detailed operative note. I attest to the content of the Intraoperative Record and any orders documented therein. Any exceptions are noted below.
[2023-06-20] MEDS: fentaNYL citrate PF 100 MCG/2 ML VIAL IV PRN ×4 (13:55→14:10)
--- NOTE | 2023-06-20 14:04 | Operative Report ---
Post Operative Report Pre & Post Diagnosis Operation Date: 06/20/23 09:00 Pre-op diagnosis: Left thumb flexor tenosynovitis. Postoperative diagnosis left thumb flexor tenosynovitis, and laceration of the flexor pollicis longus tendon I identified the patient and participated in the time-out.: Yes Procedure Operation Date: 06/20/23 09:00 #1 irrigation and debridement to tendon of the left thumb. 2. Flexor tendon repair of the FPL tendon to the left thumb Surgeon Bismark Chadwick MD Bean Snipper a Anni Becker MD. Estimated Blood Loss 1 Findings See Below Exploration of the wound revealed fluid within the flexor tendon sheath. Further inspection of the wound revealed a 90% laceration of the flexor pollicis longus tendon. cultures were obtained. The wound was irrigated out and debrided. His FPL tendon was then repaired using 4-0 PDS suture as a core suture and a 5-0 PDS as an epitendinous suture. Extension block splint was applied. Specimens 2 sets of cultures were obtained 1 in the subcutaneous tissues and 1 from inside the tendon sheath Anesthesia Type General Complications none Disposition Disposition: Recovery Room Indications 67-year-old male, injured his left thumb using a hunting knife approximately 6 days ago. He presented to a local emergency room and do boys immediately after the injury. He reports that he did not have much done at that time. On Wednesday of this week he presented to his primary care physician's office with continued pain. He was started on Augmentin. However his symptoms worsened throughout the week and he was concerned about an infection so he presented to the emergency room on Wednesday. He was admitted to the internal medicine team and started on IV antibiotics given an concern for flexor tenosynovitis. There was some improvement on Wednesday morning and therefore we elected to give him another 24 hours of IV antibiotics. This morning he had improvement in the redness around his thenar eminence but continued to have tenderness over the course of the flexor tendon. An MRI had been obtained yesterday which showed a fluid collection within the flexor tendon sheath. Surgery was indicated to perform an irrigation and debridement of his flexor tenosynovitis. I had a long discussion with him about the risks and benefits of surgery, alternatives to surgery, and expected outcomes. After reviewing all these he elected to proceed with surgery. All questions were answered. Informed consent was signed. Description of Procedure Patient was identified in the preoperative holding area where his surgical sites were marked. He was brought back to the main operating room was placed on the operating room table and general anesthesia was administered. All bony promises were padded. Perioperative antibiotics were administered. He is prepped and draped in usual sterile fashion. Prior to incision incision a multidisciplinary timeout was called. All in the room were in agreement. We began by Exsanguinating the limb with an Esmarch bandage. tourniquet was inflated 250 mmHg. Total tourniquet time for the case was 52 minutes. We began by opening up his previous incision which was transverse and just proximal to the IP flexion crease of the left thumb. We then extended this along the radial border of the thumb for a distance of approximately another 1.5 cm. We dissected down through subcutaneous tissues. The radial Neurovascular bundle to the thumb was identified. it appeared that there was some slight damage to the vein however the nerve and the artery appeared intact. We took a superficial culture of the subcutaneous tissues Then this was sent to pathology. Next we inspected the flexor tendon sheath. the volar aspect of the flexor tendon sheath had been lacerated. Through this laceration we were able to identify the flexor pollicis longus tendon. This was cut about 90% of the way through. Because it was not fully cut however the proximal stump had not retracted. Overall the appearance of the tendon did not look severely necrotic or infected. Areas of the tendon that did not appear healthy were gently debrided erring on the side of leaving tendon tissue. I then irrigated out the wound with copious amounts of normal saline, total of 2 L. Once this was complete we switched our gloves as well as discarded the previously used instruments so only clean instruments were used. A new drape was placed down on the hand table. At this point after some deliberation,I elected to repair the tendon since we were looking right out at and I felt like we had done a good job irrigating and debriding his wound. Not repairing it would have required him to have a second surgery to have this repaired. I then used a 22-gauge needle to shift kebab the tendon and hold it in the wound to facilitate repair. Distally the oblique anisha was released to expose the distal tendon. A 4-0 PDS suture was then opened up. a modified Faulkner stitch was placed into the tendon and tied down. This gave us excellent reapproximation of the tendon. There was no gap between the 2 tendon ends. However the stump had bunched up slightly. Therefore an epitendinous stitch was indicated. A 5-0 PDS suture was opened up. We started on one end of the tear with a [id number] suture. We then ran the 5-[address] around the tendon and tied this off burying the knot. Excellent fixation was obtained. At this point we brought the thumb for a full range of motion. The repair did not catch in the proximal A1 anisha despite full flexion and opposition of the thumb. There was no gapping of the repair with range of motion. I was very happy with our repair. I then reirrigated out the wound with another 1 L of normal saline. Wound was then closed using 3-0 nylon sutures. Xeroform 4 x 4's and sterile soft roll were applied. He was then placed in an extension block splint with the thumb held in a slightly flexed position. Patient was then awoke from anesthesia and transferred recovery room in stable condition. Postoperative course: Patient will be readmitted to the internal medicine service. We will follow his cultures. We will keep him on broad-spectrum antibiotics with vancomycin and Zosyn till his cultures return. Plan on consulting infectious diseases for antibiotic recommendations. 3 days from now we will have him remove his splint and transition to a removable custom made thermoplastic extension block splint and begin hand therapy. He is already on aspirin and Plavix which will serve as his DVT prophylaxis. I attest to the content of the Intraoperative Record and any orders documented therein. Any exceptions are noted below.
--- NOTE | 2023-06-20 14:33 | Anesthesiology Progress Note ---
Date of Service June 20, 2023 Anesthesia Post Procedure Vital Signs Vital Signs: Temp Pulse Pulse Resp BP Pulse Ox O2 Del Method 06/20/23 14:10 63 16 113/68 98 Oxymask 06/20/23 14:20 63 11 L 96/75 L 95 Oxymask 06/20/23 14:00 69 21 114/69 96 Oxymask 06/20/23 13:50 36 C L 66 12 114/75 99 Oxymask 06/20/23 07:18 36.3 C L 65 18 126/65 94 Room Air 06/20/23 05:38 56 L 18 96 Room Air 06/19/23 19:49 36.4 C L 60 14 131/78 95 Room Air 06/19/23 14:55 36.4 C L 61 18 119/74 96 Room Air O2 Flow Rate 06/20/23 14:10 3 06/20/23 14:20 3 06/20/23 14:00 3 06/20/23 13:50 5 06/20/23 07:18 06/20/23 05:38 06/19/23 19:49 06/19/23 14:55 Pain Intensity Left Hand: Pain Intensity: 5 Transfer of Care Handoff Completed per policy Notes Mental Status: alert / awake / arousable Patient Amnestic to Procedure: Yes Nausea / Vomiting: adequately controlled Pain: adequately controlled Airway Patency, RR, SpO2: stable & adequate BP & HR: stable & adequate Hydration State: stable & adequate Anesthetic Complications: no major complications apparent
[2023-06-20] MEDS ORDERED: METOCLOPRAMIDE HCL INJ 5 MG/ML 2 ML VIAL IV PRN (14:44)
[2023-06-20] MEDS: MoRPHine SULFATE 4 MG/ML 1 ML CARP\\VIAL IV PRN ×3 (14:51→21:01)
[2023-06-20] MEDS ORDERED: PIPERACILLIN/TAZOBACTAM 4.5 GM in DEXTROSE 5% MINI-B 100 ML IV SCH (15:00)
--- NOTE | 2023-06-20 15:14 | Pharmacy Report ---
Pharmacy PK ABX Note - Date of Service June 20, 2023 - Assessment and Plan Assessment 06/20: * Patient to OR today with cultures pending. Zosyn was discontinued by hospitalist team. * Random level this afternoon 12.8 suggests AUC/TRE target achievement (491 mg/L.hr), will continue current dosing * SCr 1.46 today, monitor 06/19 * Mr Shaw is a 67 year old M receiving vancomycin/Zosyn for treatment of L thumb infection, ?tenosynovitis. * Failed outpt treatment w/ Augmentin. * PMH significant for prediabetes, CKD stage III * Ortho consulted. Plan Continue current dosing 1250 mg q18H Additional level in 1-2 days at steady state Pharmacy will continue to follow and will adjust dose/frequency as necessary. Thank you. Pharmacy has transitioned to AUC monitoring for vancomycin. AUC/TRE is the preferred PK/PD target and is associated with decreased risk of nephrotoxicity compared to traditional trough targets.
[2023-06-20] MEDS: traMADol HCL 50 MG TABLET PO PRN (16:03)
[2023-06-20] MEDS: VANCOMYCIN HCL 1,250 MG in SODIUM CHLORIDE 0.9% 250 ML IV SCH (17:45)
[2023-06-20] MEDS ORDERED: INFLUENZA VACCINE HIGH-DOSE (HD-IIV4) PF 65+ 0.7mL SYR IM ONE (18:45)
[2023-06-20] MEDS ORDERED: Nursing to Pharmacy Communication SCH (23:45)
[2023-06-20] MEDS ORDERED: COUGH DROP (SUGAR FREE) LOZ 24 LOZ/1 BOX BUCCAL PRN (23:52)
[2023-06-21] MEDS: HYDROCODONE/ACETAMOPHEN 5/325MG TAB PO PRN (00:32)
[2023-06-21] MEDS: MoRPHine SULFATE 4 MG/ML 1 ML CARP\\VIAL IV PRN ×2 (01:42→04:24)
[2023-06-21] MEDS: traMADol HCL 50 MG TABLET PO PRN ×2 (02:43→20:17)
[2023-06-21] MEDS: ALBUTEROL HFA 8 GM INHALER INH PRN ×3 (07:41→23:59)
[2023-06-21] MEDS: PANTOprazole 40 MG TAB PO SCH (07:51)
[2023-06-21] MEDS: ACETAMINOPHEN 325 MG TAB PO PRN ×2 (07:51→12:06)
[2023-06-21] MEDS: LOSARTAN POTASSIUM 50 MG TAB PO SCH (07:51)
[2023-06-21] MEDS: ROSUVASTATIN CALCIUM 20 MG TAB PO SCH (07:51)
[2023-06-21] MEDS: hydroCHLOROthiazide 25 MG TAB PO SCH (07:51)
[2023-06-21] MEDS: METOPROLOL SUCC 25MG EXT REL TAB PO SCH ×2 (07:52→20:17)
[2023-06-21] MEDS: FAMOTIDINE 20 MG TAB PO SCH (07:52)
[2023-06-21] MEDS: ASPIRIN 81 MG ECTAB PO SCH (07:52)
[2023-06-21] MEDS: SPIRONOLACTONE 25 MG TAB PO SCH (07:52)
[2023-06-21] MEDS: CLOPIDOGREL BISULFATE 75 MG TAB PO SCH (07:52)
[2023-06-21] MEDS: amLODIPine BESYLATE 5 MG TAB PO SCH (07:52)
[2023-06-21] MEDS: TORSEMIDE 10 MG TAB PO SCH (07:52)
[2023-06-21] MEDS: GABAPENTIN 100 MG CAP PO SCH ×3 (07:53→20:17)
[2023-06-21 08:20] LABS: Hematocrit (blood only) 32.1 % (42.0-52.0); Hemoglobin 10.9 g/dl (14.0-18.0); Mean Corpuscular Volume 91.2 fL (80.0-100.0); Mean Platelet Volume 11.1 fL (9.4-12.4); Platelet Count 238 K/uL (130-400); RDW Coefficient of Variation 12.8 % (11.5-14.5); RDW Standard Deviation 42.5 fL (36.4-46.3); Red Blood Count 3.52 M/uL (4.70-6.10); White Blood Count 10.25 K/ul (4.8-10.8)
[2023-06-21 08:35] LABS: BUN Creatinine Ratio 17.7 (10-20); Calcium 8.9 mg/dl (8.6-10.3); Creatinine Clr Calc Pharmacy 55.2 ml/min; Est GFR (African American) 55.6 ml/min; Magnesium 1.9 mg/dl (1.7-2.4); Phosphorus 3.4 mg/dl (2.5-4.9); Potassium 4.2 mmol/L (3.5-5.1)
--- NOTE | 2023-06-21 09:43 | Orthopedic Progress Note ---
Date of Service June 21, 2023 Assessment & Plan (1) Flexor tenosynovitis of thumb: Plan: POD 1 s/p I & D left thumb, flexor tendon repair with Dr Chadwick Ice and elevate Continue IV abx Pain control and DVT phx per primary Cultures pending Infectious disease consult Case management for discharge needs Splint will be removed POD 3 and pt will be transitioned into removable custom thermoplastic extension block splint and can begin therapy at that time F/u in two days for splint removal and custom brace, and in 10-14 days from surgery for suture removal with LUCAS Orr PA-C Admission and Anticipated Discharge Date Admission Date: June 20, 2023 Subjective Pt seen and examined bedside POD1. Reports pain overnight but currently pain controlled. Some tingling in tip of thumb. Splint comfortable. Eating okay. No F/C, CP, SOB. Says he is going home tomorrow. Physical Exam Physical Exam: Splint fitting appropriately. Pt able to wiggle all digits. Sensation to light touch in tact. Skin perfusable, warm and pink. Results & Data Vital Signs (Past 12 Hours) Vital Signs Temp Pulse Pulse Resp BP Pulse Ox O2 Del Method 06/21/23 09:05 Room Air 06/21/23 07:41 77 14 96 Room Air 06/21/23 07:04 37.8 C H 75 16 152/77 H 94 Room Air 06/21/23 04:00 37.4 C 70 16 120/61 95 Room Air 06/20/23 23:30 36.9 C 68 18 102/66 96 Room Air 06/20/23 21:42 60 18 93 Room Air
[2023-06-21] MEDS: VANCOMYCIN HCL 1,250 MG in SODIUM CHLORIDE 0.9% 250 ML IV SCH (12:07)
--- NOTE | 2023-06-21 13:40 | Hospitalist Progress Note ---
Date of Service June 21, 2023 Assessment & Plan (1) Laceration of left thumb with infection: Plan: Mr. Shaw is a 67-year-old gentleman with past med significant for hyperlipidemia, prediabetes, hiatal hernia, obstructive CAD status post stent, hypertension, mild ascending aortic dilatation, GERD, chronic kidney disease stage III, chronic pain, who was admitted 06/18 due to left thumb infection that did not resolve with course of Augmentin. Patient cut finger over a week ago with hunting knife and trialed Augmentin, but noted increased swelling and redness. Patient started empirically on vanc/zosyn. CRP 3.82, ESR 42. Ortho planned for debridement this am Flexor tenosynovitis Left thumb cellulitis Left hand MRI - Increased fluid and associated enhancement within the tendon sheath of the left flexor pollicis longus. POD #1 I&D of left thumb and flexor tendon repair On Vanco (day 4), Zosyn 06/18 -06/20 Culture shows few WBCs, no organisms ID consult Asymptomatic bradycardia Obstructive CAD s/p stent 2004 with mild instent stenosis HTN HLD Continue Amlodipine, HCTZ, Spironolactone, Losartan, Torsemide Metoprolol reduced to 12.5mg BID given HR in low 50s - HR improved Continue rosuvastatin 40mg CKD stage III Baseline creatinine mid 1s Creatinine 1.4 Continue to monitor renal functions Prediabetes Hgb A1c 5.4% DVT prophylaxis SCDs for now Dispo: Pending ID consult, likely discharge home tomorrow Patient seen in collaboration with Dr. Wolfe. Admission and Anticipated Discharge Date Admission Date: June 20, 2023 Supervising Physician Co-Signing Physician Notes I have seen and discussed the case with the collaborating Quita BLANCHARD. I agree with the above H&P. I have reviewed and confirmed the patients medical history, the findings on physical examination, and the patients diagnosis and treatment plan with Quita BLANCHARD and agree with the information documented. In short, Mr Shaw is a 67 yo gentleman with flexor tendon lacteration s/p repair 06/20. Pending abx recommendations per ID given extent of injury. Dispo likely tomorrow contingent on recommendations. Subjective Follow-up for flexor tenosynovitis, cellulitis. Patient seen and examined. S/p left thumb I&D and flexor tendon repair by Dr. Chadwick. Reports pain is well controlled. Remains afebrile. No chest pain or shortness of breath. Denies abdominal pain or nausea. Review of Systems Review of Systems: ROS per HPI, all other systems reviewed and negative Physical Exam Constitutional: WD/WN, vitals as above no acute distress Respiratory: normal respiratory effort, lungs clear to auscultation Cardiovascular: Rate/Rhythm: regular rate and regular rhythm Vessels: normal peripheral pulses Extremities: no edema Gastrointestinal (Abdomen): Percussion/Palpation: abdomen soft; abdomen nontender Musculoskeletal: s/p left thumb surgery, dressing/split CDI, CSM checks intact to left hand Skin: no rashes, warm and dry Neurologic: no focal motor deficits Psychiatric: A+Ox3, euthymic affect Results & Data Results & Data Vital Signs (Past 12 Hours) Vital Signs Temp Pulse Pulse Resp BP Pulse Ox O2 Del Method 06/21/23 11:29 36.9 C 71 18 136/72 98 Room Air 06/21/23 09:05 Room Air 06/21/23 07:41 77 14 96 Room Air 06/21/23 07:04 37.8 C H 75 16 152/77 H 94 Room Air 06/21/23 04:00 37.4 C 70 16 120/61 95 Room Air Laboratory Results Short CBC 06/21/23 Range/Units 07:36 WBC 10.25 (4.8-10.8) K/ul Hgb 10.9 L (14.0-18.0) g/dl Hct 32.1 L (42.0-52.0) % Plt Count 238 (130-400) K/uL BMP 06/21/23 07:36 Sodium 135 L Potassium 4.2 Chloride 100 Carbon Dioxide 28 BUN 26 H Creatinine 1.47 H Glucose 105 H Calcium 8.9
--- NOTE | 2023-06-21 15:28 | XRay Report ---
SINGLE VIEW CHEST CLINICAL HISTORY: Dyspnea FINDINGS: An AP, portable, upright chest radiograph is compared to study dated 05/21/2022. The examinat ion is degraded by portable technique and apical lordotic positioning. The heart is enlarged. The pul monary vasculature is noncongested. There is mild bibasilar atelectasis. The lungs and pleural spaces are otherwise clear. No pneumothorax is seen. The skeletal structures appear osteopenic. There are c hronic/healed left-sided rib fractures. IMPRESSION: No active disease in the chest. ACT 112: Negative or not required by law. Electronically signed by: Heriberto Salinas M.D. 06/21/2023 3:26 PM
[2023-06-22] MEDS: VANCOMYCIN HCL 1,250 MG in SODIUM CHLORIDE 0.9% 250 ML IV SCH ×2 (05:51→23:54)
[2023-06-22 07:46] LABS: Hematocrit (blood only) 30.6 % (42.0-52.0); Hemoglobin 10.5 g/dl (14.0-18.0); Mean Corpuscular Hgb Conc 34.3 g/dL (32.0-36.0); Mean Corpuscular Volume 90.3 fL (80.0-100.0); Mean Platelet Volume 10.9 fL (9.4-12.4); Platelet Count 221 K/uL (130-400); RDW Coefficient of Variation 12.4 % (11.5-14.5); Red Blood Count 3.39 M/uL (4.70-6.10); White Blood Count 6.84 K/ul (4.8-10.8)
[2023-06-22 08:06] LABS: BUN Creatinine Ratio 21.5 (10-20); Creatinine Clr Calc Pharmacy 60.1 ml/min; Est GFR (African American) 61.6 ml/min; Est GFR (Non-African American) 53.2 ml/min; Potassium 4.3 mmol/L (3.5-5.1)
[2023-06-22] MEDS: ALBUTEROL HFA 8 GM INHALER INH PRN (08:49)
[2023-06-22] MEDS: GABAPENTIN 100 MG CAP PO SCH ×3 (09:18→20:14)
[2023-06-22] MEDS: ASPIRIN 81 MG ECTAB PO SCH (09:18)
[2023-06-22] MEDS: CLOPIDOGREL BISULFATE 75 MG TAB PO SCH (09:19)
[2023-06-22] MEDS: ROSUVASTATIN CALCIUM 20 MG TAB PO SCH (09:19)
[2023-06-22] MEDS: FAMOTIDINE 20 MG TAB PO SCH (09:19)
[2023-06-22] MEDS: TORSEMIDE 10 MG TAB PO SCH (09:19)
[2023-06-22] MEDS: amLODIPine BESYLATE 5 MG TAB PO SCH (09:19)
[2023-06-22] MEDS: METOPROLOL SUCC 25MG EXT REL TAB PO SCH ×2 (09:19→20:14)
[2023-06-22] MEDS: SPIRONOLACTONE 25 MG TAB PO SCH (09:19)
[2023-06-22] MEDS: LOSARTAN POTASSIUM 50 MG TAB PO SCH (09:19)
[2023-06-22] MEDS: PANTOprazole 40 MG TAB PO SCH (09:19)
[2023-06-22] MEDS: hydroCHLOROthiazide 25 MG TAB PO SCH (09:20)
[2023-06-22] MEDS: ACETAMINOPHEN 325 MG TAB PO PRN ×2 (09:25→13:41)
--- NOTE | 2023-06-22 09:44 | Orthopedic Progress Note ---
Date of Service June 22, 2023 Assessment & Plan (1) Flexor tenosynovitis of thumb: Plan: POD 2 s/p I & D left thumb, flexor tendon repair with Dr Chadwick Ice and elevate left upper extremity Continue IV abx Pain control and DVT phx per primary Cultures pending Infectious disease consulted waiting for recommendations Case management for discharge needs Splint will be removed POD 3 and pt will be transitioned into removable custom thermoplastic extension block splint and can begin therapy at that time F/u in tomorrow at 10:30 in our Physical therapy department for splint removal and custom brace. He will be scheduled in 10-14 days from surgery for suture removal with LUCAS Orr PA-C Present on Admission?: Yes Admission and Anticipated Discharge Date Admission Date: June 20, 2023 Subjective Patient is a 67-year-old [id number] male. He was seen bedside this AM. He status post a left thumb I&D and flexor tendon repair by Dr. Ralph off postop day #2. He states his pain is minimal and feels this is controlled. He states the numbness he was having in his thumb is improving. He states he may have a little bit at the distal end points to the tip of it. He states the splint is comfortable. He is anticipating being discharged today. He offers no concerns. He denies any fever, chills, chest pain , short of breath. Review of Systems Review of Systems: Please refer to HPI Physical Exam Physical Exam: General: Patient sitting upright in bed finishing breakfast. He is alert and oriented x3 no acute distress pleasant and conversive. Musculoskeletal/integumentary: Splint is in place of left upper extremity. Skin is normal in color and tender over the digits and upper left forearm. He is able to freely flex and extend digits 2 through 5. Capillary refills less than 2 seconds. Sensation is intact to light touch. Results & Data Vital Signs (Past 12 Hours) Vital Signs Temp Pulse Pulse Resp BP Pulse Ox O2 Del Method 06/22/23 09:18 58 L 96 Room Air 06/22/23 07:45 62 16 98 Room Air 06/22/23 07:20 Room Air 06/22/23 07:33 36.7 C 54 L 16 135/77 93 Room Air 06/21/23 23:59 58 L 18 95 Room Air
--- NOTE | 2023-06-22 16:04 | Infectious Disease Consult ---
Date of Service June 22, 2023 Telehealth Information I performed this visit using a real-time telehealth connection between my location and the patients location ([facility]). After connecting through interactive tele-video, patient was identified by name and date of and/or wristband check.Patient (or authorized healthcare territory service representative) was informed that this was a telemedicine visit and it was being conducted confidentially over secure lines. My office door was closed and no o ne else was present in the room with me.Patient (or authorized healthcare territory service representative) provided consent to proceed with the visit, expressed an understanding of privacy and security of the telemedicine visit, and gave permission to have a hospital territory service representative in the room in order to assist with the visit and to conduct portions of the visit, as needed. I informed the patient (or authorized healthcare territory service representative) that I reviewed their record and presented the opportunity for them to ask any questions regarding the visit today. The patient agreed to participate. Assessment & Plan (1) Flexor tenosynovitis of thumb: Plan: Please ensure that the patient's tetanus has been updated (if indicated). I called the microbiology lab at [facility] ([phone]) but was not able to reach them. We will need to follow up cultures from both [facility] and [facility]. Antibiotics will need to be adjusted PRN. If nothing grows from any culture, I suspect that we will be able to treat with IV Unasyn for about 14 days. These recommendations may not be final. Unless specifically noted otherwise, all orders are deferred to the primary/requesting service(s). I am based out of [facility]) and cannot regularly monitor patients unless they are admitted to the [facility]. You must contact ID again re: further assistance (or if there is any significant change in the patient's condition). Coverage changes frequently. Check the on-call schedule to find which provider is currently covering your location. If you have questions/concerns about the recommendations, make sure that you reach out to ID. History of Present Illness History of Present Illness The patient was admitted for pain/swelling of the thumb that occurred after sustaining a laceration from a knife. Workup revealed tenosynovitis (diagnosed by clinical exam). The patient was seen by Orthopedics and they took the patient for I&D with tendon repair (06/20). The patient is being treated with vancomycin and Zosyn. Allergies Allergy/AdvReac Type Severity Reaction Status Date / Time morphine Allergy Severe ILL Unverified 05/21/22 20:34 tetracycline Allergy Mild RASH Verified 05/21/22 20:34 codeine Allergy Unknown Unknown Verified 05/21/22 20:34 shrimp AdvReac Mild NECK Verified 05/21/22 20:34 SWELLS IF HE EATS ALOT OF THEM enalapril AdvReac Cough Verified 05/21/22 20:34 Home Medications Medication Instructions Recorded Confirmed Type albuterol sulfate 90 mcg/actuation 2 puff inhalation Q4H PRN 06/18/23 06/18/23 History aerosol inhaler Shortness Of Breath Or Wheezing amlodipine 5 mg tablet 5 mg PO DAILY 06/18/23 06/18/23 History amoxicillin 875 mg-potassium 1 tab PO BID 06/18/23 06/18/23 History clavulanate 125 mg tablet aspirin 81 mg tablet,delayed 81 mg PO DAILY 06/18/23 06/18/23 History release clopidogrel 75 mg tablet 75 mg PO DAILY 06/18/23 06/18/23 History famotidine 20 mg tablet 20 mg PO DAILY 06/18/23 06/18/23 History gabapentin 100 mg capsule 100 mg PO TID 06/18/23 06/18/23 History hydrochlorothiazide 25 mg tablet 25 mg PO DAILY 06/18/23 06/18/23 History hydrocodone 5 mg-acetaminophen 325 1 tab PO Q6H PRN Pain 06/18/23 06/18/23 History mg tablet losartan 100 mg tablet 100 mg PO DAILY 06/18/23 06/18/23 History metoprolol succinate 25 mg 25 mg PO UD 06/18/23 06/18/23 History tablet,extended release 24 hr pantoprazole 40 mg tablet,delayed 40 mg PO DAILY 06/18/23 06/18/23 History release rosuvastatin 40 mg tablet 40 mg PO DAILY 06/18/23 06/18/23 History spironolactone 25 mg tablet 25 mg PO DAILY 06/18/23 06/18/23 History torsemide 5 mg tablet 5 mg PO DAILY 06/18/23 06/18/23 History Patient History Medical History (Updated 06/20/23 @ 07:59 by Malachi Leo MD) Anemia Coronary artery disease Hyperlipidemia Hypertension Surgical History History of coronary artery stent placement Family History Other Family history non-contributory Social History Smoking Status: Never smoker Second Hand Exposure: No; Do You Dip or Chew Tobacco: No; Tobacco Cessation Education Requested by Patient: No Hx Alcohol Use: Yes Alcohol type: wine Hx Substance Use: No Preferred Language: Polish Communication Ability: Effective Hand Filer Balance Wheel Required: No Beliefs That Will Affect Care: Confucianism Confucianism Beliefs: Spiritism Current Living Situation: Other Current Living Situation Comment: spouse and niece Other Information That Helps Us Care for You: No Feels Safe at Home: Yes Safety Concerns: Feels Safe At This Time Assistive Devices: None Assistive Devices Comment: reading glasses Review of Systems Unable to connect - televideo equipment was not functioning properly. Attempted multiple times. Physical Exam Unable to connect - televideo equipment was not functioning properly. Attempted multiple times. Results & Data Vital Signs (Past 12 Hours) Vital Signs Temp Pulse Pulse Resp BP Pulse Ox O2 Del Method 06/22/23 15:28 36.5 C 57 L 18 131/73 94 Room Air 06/22/23 09:18 58 L 96 Room Air 06/22/23 07:45 62 16 98 Room Air 06/22/23 07:20 Room Air 06/22/23 07:33 36.7 C 54 L 16 135/77 93 Room Air Laboratory Results See EMR Diagnostic Findings [address], [place] [address] / Director: Bismark Elizabeth M.D. Clinical Laboratory Report Name: MARINA FENG Acct: [id number] [place]: [place] 1955 [facility] [place] 06[place]20/23 Age: 67 Sex: M Dis Date: Loc: Medical/Surgical/Ortho [address] [place] [address] Rm/Bed: N377-1 Spec: [id number] Collected: 06/20/23 Received: 06/20/[address]: Bismark Chadwick MD Copy To: Ish Travis MD Source: Thumb,Left OV Order: Ordered: Aer/Krystle Cult/Sm Comments: Comment Culture set #1 Subcutaneous tissue left thumb. Procedure Result Verified Site Gram Stain Final 06/20/23 Gram Stain Result Rare Epithelial Cells Few WBCs Seen No Organisms Seen Aero/Krystle Cult Preliminary 06/22/23 Pin-point growth present, reincubating. Name: MARINA FENG : 1955 PAGE 1 Printed: 06/22/23 2305 END OF REPORT [address], [place] [address] / Director: Bismark Elizabeth M.D. Clinical Laboratory Report Name: MARINA FENG Acct: [id number] Status: ADM [place] 1955 [facility] [place]: 06/20/23 Age: 67 Sex: M Dis Date: Loc: Medical/Surgical/Ortho [address] [place] [address] Rm/Bed: N377-1 Spec: [id number] Collected: 06/20/23 Received: 06/20/[address]: Bismark Chadwick MD Copy To: Ish Travis MD Source: Thumb,Left OV Order: Ordered: Aer/Krystle Cult/Sm Comments: Comment Culture set #2 Tenosynovium left thumb. Procedure Result Verified Site Gram Stain Final 06/20/23 Gram Stain Result Rare Epithelial Cells Few WBCs Seen No Organisms Seen Aero/Krystle Cult Preliminary 06/22/23 No growth to date. Name: MARINA FENG : 1955 PAGE 1 Printed: 06/22/23 9526 END OF REPORT [address], [place] [address] / Director: Bismark Elizabeth M.D. Clinical Laboratory Report Name: MARINA FENG Zoran Acct: [id number] Status: ADM [place] 1955 [facility] [place]: 06/20/23 Age: 67 Sex: M Dis Date: Loc: Medical/Surgical/Ortho [address] [place] [address]/Bed: N377-1 Spec: [id number] Collected: 06/20/23 Received: 06/20/[address]: Loreta Wolfe MD Copy To: Ish Travis MD Source: Blood OV Order: Ordered: Blood Culture Comments: Comment Default is separate sites, same time Blood culture drawn venously from Right Arm. Procedure Result Verified Site Blood Culture Aerobic Preliminary 06/22/23 No growth in Aerobic bottle after 48 hours. Blood Culture Anaerobic Preliminary 06/22/23 No growth in Anaerobic bottle after 48 hours. Name: MARINA FENG : 1955 PAGE 1 Printed: 06/22/23 3949 [place] [address] / Director: Bismark Elizabeth M.D. Clinical Laboratory Report Name: MARINA FENG Acct: [id number] Status: ADM [place] 1955 [facility] [place]: 06/20/23 Age: 67 Sex: M Dis Date: Loc: Medical/Surgical/Ortho [address] [place] [address]/Bed: N377-1 Spec: [id number] Collected: 06/20/23 Received: 06/20/[address]: Loreta Wolfe MD Copy To: Ish Travis MD Source: Blood OV Order: Ordered: Blood Culture Comments: Comment Default is separate sites, same time Blood culture drawn venously from Right Hand. Procedure Result Verified Site Blood Culture Aerobic Preliminary 06/22/23 No growth in Aerobic bottle after 48 hours. Blood Culture Anaerobic Preliminary 06/22/23-1601 No growth in Anaerobic bottle after 48 hours. Name: MARINA FENG SR : 1955 PAGE 1 Printed: 06/22/23 5055 END OF REPORT
--- NOTE | 2023-06-22 17:18 | Hospitalist Progress Note ---
Date of Service June 22, 2023 Assessment & Plan (1) Laceration of left thumb with infection: Plan: Mr. Shaw is a 67-year-old gentleman with past med significant for hyperlipidemia, prediabetes, hiatal hernia, obstructive CAD status post stent, hypertension, mild ascending aortic dilatation, GERD, chronic kidney disease stage III, chronic pain, who was admitted 06/18 due to left thumb infection that did not resolve with course of Augmentin. Patient cut finger over a week ago with hunting knife and trialed Augmentin, but noted increased swelling and redness. Patient started empirically on vanc/zosyn. CRP 3.82, ESR 42. Ortho planned for debridement this am Flexor tenosynovitis Left thumb cellulitis Left hand MRI - Increased fluid and associated enhancement within the tendon sheath of the left flexor pollicis longus. POD #2 I&D of left thumb and flexor tendon repair On Vanco (day 4), Zosyn 06/18 -06/20 One culture shows few WBCs, no organisms; 2nd culture pinpoint growth, reincubating Blood cultures NGTD ID consult - tried to obtain culture report from [facility]. Await final culture reports. If no growth, will need IV Unasyn for 14 days. Asymptomatic bradycardia Obstructive CAD s/p stent 2004 with mild instent stenosis HTN HLD Continue Amlodipine, HCTZ, Spironolactone, Losartan, Torsemide Metoprolol reduced to 12.5mg BID given HR in low 50s - HR improved Continue rosuvastatin 40mg CKD stage III Baseline creatinine mid 1s Creatinine 1.3 Continue to monitor renal functions Prediabetes Hgb A1c 5.4% DVT prophylaxis SCDs for now Dispo: Pending final culture results, possible DC home tomorrow with IV antibiotics. Patient seen in collaboration with Dr. Wolfe. Admission and Anticipated Discharge Date Admission Date: June 20, 2023 Supervising Physician Co-Signing Physician Notes I have seen and discussed the case with the collaborating Quita BLANCHARD. I agree with the above H&P. I have reviewed and confirmed the patients medical history, the findings on physical examination, and the patients diagnosis and treatment plan with Quita BLANCHARD and agree with the information documented. In short, Mr Shaw is a 67 yo gentleman with flexor tendon lacteration s/p repair 06/20. ID tentatively requesting IV abx with Unasyn, however, awaiting culture data from OSH. Subjective Follow-up for flexor tenosynovitis, cellulitis. Patient seen and examined. S/p left thumb I&D and flexor tendon repair by Dr. Chadwick. Pain is well controlled, remains afebrile. Offers no complaints. Awaiting ID input. Physical Exam Constitutional: WD/WN, vitals as above Respiratory: normal respiratory effort, lungs clear to auscultation Cardiovascular: Rate/Rhythm: regular rate and regular rhythm Vessels: normal peripheral pulses Extremities: no edema Gastrointestinal (Abdomen): Percussion/Palpation: abdomen soft; abdomen nontender Musculoskeletal: S/p left hand surgery, dressing CDI, CSM checks intact left hand Skin: no rashes, warm and dry Neurologic: no focal motor deficits Psychiatric: A+Ox3, euthymic affect Results & Data Results & Data Vital Signs (Past 12 Hours) Vital Signs Temp Pulse Pulse Resp BP Pulse Ox O2 Del Method 06/22/23 15:28 36.5 C 57 L 18 131/73 94 Room Air 06/22/23 09:18 58 L 96 Room Air 06/22/23 07:45 62 16 98 Room Air 06/22/23 07:20 Room Air 06/22/23 07:33 36.7 C 54 L 16 135/77 93 Room Air Laboratory Results Short CBC 06/22/23 Range/Units 07:18 WBC 6.84 (4.8-10.8) K/ul Hgb 10.5 L (14.0-18.0) g/dl Hct 30.6 L (42.0-52.0) % Plt Count 221 (130-400) K/uL BMP 06/22/23 07:18 Sodium 135 L Potassium 4.3 Chloride 101 Carbon Dioxide 30 BUN 29 H Creatinine 1.35 Glucose 119 H Calcium 9.0
[2023-06-22] MEDS: traMADol HCL 50 MG TABLET PO PRN (20:17)
[2023-06-23] MEDS: ACETAMINOPHEN 325 MG TAB PO PRN ×2 (07:39→16:59)
[2023-06-23 07:51] LABS: Creatinine Clr Calc Pharmacy 67.6 ml/min; Est GFR (African American) 71.1 ml/min; Est GFR (Non-African American) 61.3 ml/min
[2023-06-23] MEDS: GABAPENTIN 100 MG CAP PO SCH ×3 (08:13→20:10)
[2023-06-23] MEDS: ROSUVASTATIN CALCIUM 20 MG TAB PO SCH (08:13)
[2023-06-23] MEDS: TORSEMIDE 10 MG TAB PO SCH (08:13)
[2023-06-23] MEDS: amLODIPine BESYLATE 5 MG TAB PO SCH (08:18)
[2023-06-23] MEDS: LOSARTAN POTASSIUM 50 MG TAB PO SCH (08:18)
[2023-06-23] MEDS: CLOPIDOGREL BISULFATE 75 MG TAB PO SCH (08:19)
[2023-06-23] MEDS: PANTOprazole 40 MG TAB PO SCH (08:19)
[2023-06-23] MEDS: hydroCHLOROthiazide 25 MG TAB PO SCH (08:19)
[2023-06-23] MEDS: FAMOTIDINE 20 MG TAB PO SCH (08:19)
[2023-06-23] MEDS: SPIRONOLACTONE 25 MG TAB PO SCH (08:19)
[2023-06-23] MEDS: ASPIRIN 81 MG ECTAB PO SCH (08:19)
[2023-06-23] MEDS: METOPROLOL SUCC 25MG EXT REL TAB PO SCH ×2 (08:23→20:10)
[2023-06-23] MEDS: traMADol HCL 50 MG TABLET PO PRN ×2 (08:26→20:19)
--- NOTE | 2023-06-23 10:16 | Orthopedic Progress Note ---
Date of Service June 23, 2023 Assessment & Plan (1) Flexor tenosynovitis of thumb: Plan: POD 3 s/p I & D left thumb, flexor tendon repair with Dr Chadwick Ice and elevate left upper extremity Continue IV abx Pain control and DVT phx per primary Cultures pending, showing pinpoint growth Infectious disease consulted waiting for recommendations Case management for discharge needs Splint will be removed tomorrow and pt will be transitioned into removable custom thermoplastic extension block splint and can begin therapy at that time. We will get patient a new appointment for tomorrow He will be scheduled in 10-14 days from surgery for suture removal with LUCAS Orr PA-C Admission and Anticipated Discharge Date Admission Date: June 20, 2023 Subjective Patient seen and examined bedside. Is doing well this morning. Has no questions or complaints. Says pain is controlled. Still has some numbness in the tip of his thumb. Splint is fitting appropriately. Physical Exam Physical Exam: Splint fitting appropriately. Pt able to wiggle all digits. Sensation to light touch in tact. Some numbness tip if thumb. Skin perfusable, warm and pink. Results & Data Vital Signs (Past 12 Hours) Vital Signs Temp Pulse Pulse Resp BP Pulse Ox O2 Del Method 06/23/23 08:24 64 97 Room Air 06/23/23 07:23 36.6 C 59 L 18 143/76 H 95 Room Air
[2023-06-23] MEDS ORDERED: Nursing to Pharmacy Communication SCH (13:30)
[2023-06-23] MEDS: guaiFENesin 600 MG TABCR PO SCH ×2 (14:08→22:08)
--- NOTE | 2023-06-23 15:14 | Hospitalist Progress Note ---
Date of Service June 23, 2023 Assessment & Plan (1) Laceration of left thumb with infection: Plan: Mr. Shaw is a 67-year-old gentleman with past med significant for hyperlipidemia, prediabetes, hiatal hernia, obstructive CAD status post stent, hypertension, mild ascending aortic dilatation, GERD, chronic kidney disease stage III, chronic pain, who was admitted 06/18 due to left thumb infection that did not resolve with course of Augmentin. Patient cut finger over a week ago with hunting knife and trialed Augmentin, but noted increased swelling and redness. Patient started empirically on vanc/zosyn. CRP 3.82, ESR 42. Flexor tenosynovitis Left thumb cellulitis Left hand MRI - Increased fluid and associated enhancement within the tendon sheath of the left flexor pollicis longus. POD #3 I&D of left thumb and flexor tendon repair On Vanco (day 5), Zosyn 06/18 -06/20, adding Unasyn today One culture shows few WBCs, no organisms; 2nd culture pinpoint growth, reincubating - discussed with neo, expected finalization tomorrow. Called [facility], patient did not have any cultures obtained at prior ED visit. Blood cultures NGTD ID consult - tentatively planning for Unasyn for 14 days, pending final culture results Asymptomatic bradycardia Obstructive CAD s/p stent 2004 with mild instent stenosis HTN HLD Continue Amlodipine, HCTZ, Spironolactone, Losartan, Torsemide Metoprolol reduced to 12.5mg BID given HR in low 50s - HR improved Continue rosuvastatin 40mg CKD stage III Baseline creatinine mid 1s Creatinine 1.2 Continue to monitor renal functions Prediabetes Hgb A1c 5.4% DVT prophylaxis SCDs for now Dispo: Pending final culture results, possible DC home tomorrow with IV antibiotics. Patient seen in collaboration with Dr. [place]. Admission and Anticipated Discharge Date Admission Date: June 20, 2023 Supervising Physician Co-Signing Physician Notes I have seen and discussed the case with the collaborating Quita BLANCHARD. I agree with the above H&P. I have reviewed and confirmed the patients medical history, the findings on physical examination, and the patients diagnosis and treatment plan with Quita BLANCHARD and agree with the information documented. In short, Mr Shaw is a 67 yo gentleman with flexor tendon lacteration s/p repair 06/20. ID tentatively requesting IV abx with Unasyn, however, awaiting culture data from [facility]. Subjective Follow-up for flexor tenosynovitis, cellulitis.S/p left thumb I&D and flexor tendon repair by Dr. Chadwick. Patient seen and examined. Doing well. Offers no complaints. Eager to be discharged. Physical Exam Constitutional: WD/WN, vitals as above Respiratory: normal respiratory effort, lungs clear to auscultation Cardiovascular: Rate/Rhythm: regular rate and regular rhythm Vessels: normal peripheral pulses Extremities: no edema Gastrointestinal (Abdomen): Percussion/Palpation: abdomen soft; abdomen nontender Musculoskeletal: s/p left hand surgery, dressing CDI, CSM checks intact Skin: no rashes, warm and dry Neurologic: no focal motor deficits Psychiatric: A+Ox3, euthymic affect Results & Data Results & Data Vital Signs (Past 12 Hours) Vital Signs Temp Pulse Pulse Resp BP Pulse Ox O2 Del Method 06/23/23 08:24 64 97 Room Air 06/23/23 07:23 36.6 C 59 L 18 143/76 H 95 Room Air Laboratory Results [facility] 06/23/23 07:19 Creatinine 1.20
[2023-06-23] MEDS: UNASYN 3000MG / NS q6h IV SCH ×2 (16:15→22:04)
[2023-06-23] MEDS: VANCOMYCIN HCL 1,250 MG in SODIUM CHLORIDE 0.9% 250 ML IV SCH (18:05)
[2023-06-23] MEDS ORDERED: guaiFENesin 600 MG TABCR PO SCH (21:00)
[2023-06-24] MEDS: UNASYN 3000MG / NS q6h IV SCH ×3 (04:43→15:53)
[2023-06-24 06:04] LABS: Creatinine Clr Calc Pharmacy 62.4 ml/min; Est GFR (African American) 64.5 ml/min; Est GFR (Non-African American) 55.7 ml/min
[2023-06-24] MEDS ORDERED: LORATADINE 10 MG TAB PO ONE (08:33)
[2023-06-24] MEDS: PANTOprazole 40 MG TAB PO SCH (08:40)
[2023-06-24] MEDS: guaiFENesin 600 MG TABCR PO SCH (08:40)
[2023-06-24] MEDS: FAMOTIDINE 20 MG TAB PO SCH (08:40)
[2023-06-24] MEDS: amLODIPine BESYLATE 5 MG TAB PO SCH (08:40)
[2023-06-24] MEDS: GABAPENTIN 100 MG CAP PO SCH ×2 (08:40→15:31)
[2023-06-24] MEDS: LOSARTAN POTASSIUM 50 MG TAB PO SCH (08:41)
[2023-06-24] MEDS: CLOPIDOGREL BISULFATE 75 MG TAB PO SCH (08:41)
[2023-06-24] MEDS: SPIRONOLACTONE 25 MG TAB PO SCH (08:41)
[2023-06-24] MEDS: TORSEMIDE 10 MG TAB PO SCH (08:41)
[2023-06-24] MEDS: hydroCHLOROthiazide 25 MG TAB PO SCH (08:41)
[2023-06-24] MEDS: METOPROLOL SUCC 25MG EXT REL TAB PO SCH (08:41)
[2023-06-24] MEDS: ROSUVASTATIN CALCIUM 20 MG TAB PO SCH (08:41)
[2023-06-24] MEDS: ASPIRIN 81 MG ECTAB PO SCH (08:41)
--- NOTE | 2023-06-24 10:44 | Pharmacy Report ---
Pharmacy PK ABX Note - Date of Service June 24, 2023 - Assessment and Plan Assessment 06/24: * Reviewed vancomycin level, current dose predicted to achieve goal AUC/TRE, continue current dosing 06/20: * Patient to OR today with cultures pending. Zosyn was discontinued by hospitalist team. * Random level this afternoon 12.8 suggests AUC/TRE target achievement (491 mg/L.hr), will continue current dosing * SCr 1.46 today, monitor 06/19 * Mr Shaw is a 67 year old M receiving vancomycin/Zosyn for treatment of L thumb infection, ?tenosynovitis. * Failed outpt treatment w/ Augmentin. * PMH significant for prediabetes, CKD stage III * Ortho consulted. Plan Continue current dosing 1250 mg q18H Additional level in 1-2 days at steady state Pharmacy will continue to follow and will adjust dose/frequency as necessary. Thank you. Pharmacy has transitioned to AUC monitoring for vancomycin. AUC/TRE is the preferred PK/PD target and is associated with decreased risk of nephrotoxicity compared to traditional trough targets.
[2023-06-24] MEDS: VANCOMYCIN HCL 1,250 MG in SODIUM CHLORIDE 0.9% 250 ML IV SCH (13:09)
--- NOTE | 2023-06-24 14:44 | Discharge Summary ---
Discharge Summary Date of Service June 24, 2023 Notes For Next Care Provider L thumb cellulitis and flexor tenosynovitis, POD #3 I&D of left thumb and flexor tendon repair, No growth to date on blood cultures Medication Changes From Visit Unasyn 3gm Q6H x 14 days , Doxycycline 100mg BID x 9 days Admission HPI Per Admitting Provider 67-year-old male with past med significant for hyperlipidemia, prediabetes, hiatal hernia, CAD status post stent, hypertension, mild ascending aortic dilatation, GERD, chronic kidney disease stage III, chronic pain, presents with a left thumb infection. Patient cut his left thumb with his knife on last Wednesday and was in [facility] ER in [place] . Patient states no I&D was done he was discharged the same day from the ER. He was having a lot of pain and he made appointment with PCP on last Wednesday and was prescribed Augmentin. He took antibiotic for last 4 days but was not improving. He is having a lot of pain and today developed swelling of the left thumb and having painful movements so decided come to the ER. Denies any fevers but having chills. No other complaints. Resting comfortably in bed and hemodynamically stable. No headache. No runny nose or sore throat or cough. No trouble swallowing. No chest pain or shortness of breath. No nausea or vomiting. No abdominal pain. Normal bowel and bladder movements. Past medical history as mentioned above Past surgical history. Right shoulder arthroscopy. Cardiac cath s/p and placement. Colonoscopy. EGD with biopsy. Injection of lumbar and thoracic spine. Tonsillectomy. Left inguinal hernia repair. Right inguinal hernia repair. Repair of nasal septum. Right shoulder arthroscopy. Umbilical hernia repaired. Social history . No smoking. 5.8 standard drinks of alcohol per week. No drug use. Family history. Brother had colon cancer. Brother had heart disorder. Father had VA in 50s. Hypertension. Mother has hypertension. VA in 60s. Daughter has questionable MS. Son has allergies. Admission Exam Per Admitting Provider General- Not in distress Head- atraumatic Eyes- PERRL. ENT- oropharynx clear Neck- supple, no JVD. Lungs- clear to auscultation, No wheezing or crackles Heart- regular rhythm; no murmur, no gallop. Abdomen- normal bowel sounds, soft, nontender, no distension. Extremities- no pretibial edema, Lft thumb swollen and tender to palpation. painful movements Neuro- alert, oriented x 3; PERRL,no facial palsy; no dysarthria. Non focal. Skin- warm & dry Principal Dx & Hospital Course #1 = Principal Diagnosis (1) Laceration of left thumb with infection: Mr. Shaw is a 67-year-old gentleman with past med significant for hyperlipidemia, prediabetes, hiatal hernia, obstructive CAD status post stent, hypertension, mild ascending aortic dilatation, GERD, chronic kidney disease stage III, chronic pain, who was admitted 06/18 due to left thumb infection that did not resolve with course of Augmentin. Patient cut finger over a week ago with hunting knife and trialed Augmentin, but noted increased swelling and redness and presented to ED. Left hand MRI - Increased fluid and associated enhancement within the tendon sheath of the left flexor pollicis longus. Underwent I&D of left thumb and flexor tendon repair on 06/21/23 and was empirically on vanc/zosyn. No growth on blood cultures to date. Attempted to obtain cultures from prior ED visit in [facility] but unsuccessful. Per ID recommendation in setting of negative cultures, recommending Unasyn for 14 days. Will also continue with MRSA coverage for a total of 14 days (transitioning from vanco to doxy at time of discharge home). Scheduled for custom removable splint tomorrow arranged by [facility]. Follow up in 10-14 days for suture removal. Patient comfortable and hemodynamically stable at time of discharge home. Discharge Exam Gen: WD/WN, NAD, lying in bed, A&Ox3 HEENT: Normocephalic, atraumatic, conjunctivae moist, sclerae anicteric, mucous membranes moist Lung: Clear to Auscultation bilaterally, no wheezes/rales/rhonchi Heart: Regular rate, regular rhythm, no murmurs, rubs, or gallops Abdomen: Soft, NT, ND +BS x 4 Extremities: + L thumb with surgical dressing c/d/i. Distally NVI, no edema Skin: Warm, no rash Updated Medication List Medication Instructions Recorded Confirmed Type albuterol sulfate 90 mcg/actuation 2 puff inhalation Q4H PRN 06/18/23 06/18/23 History aerosol inhaler Shortness Of Breath Or Wheezing amlodipine 5 mg tablet 5 mg PO DAILY 06/18/23 06/18/23 History aspirin 81 mg tablet,delayed 81 mg PO DAILY 06/18/23 06/18/23 History release clopidogrel 75 mg tablet 75 mg PO DAILY 06/18/23 06/18/23 History famotidine 20 mg tablet 20 mg PO DAILY 06/18/23 06/18/23 History gabapentin 100 mg capsule 100 mg PO TID 06/18/23 06/18/23 History hydrochlorothiazide 25 mg tablet 25 mg PO DAILY 06/18/23 06/18/23 History hydrocodone 5 mg-acetaminophen 325 1 tab PO Q6H PRN Pain 06/18/23 06/18/23 History mg tablet losartan 100 mg tablet 100 mg PO DAILY 06/18/23 06/18/23 History metoprolol succinate 25 mg 25 mg PO UD 06/18/23 06/18/23 History tablet,extended release 24 hr pantoprazole 40 mg tablet,delayed 40 mg PO DAILY 06/18/23 06/18/23 History release rosuvastatin 40 mg tablet 40 mg PO DAILY 06/18/23 06/18/23 History spironolactone 25 mg tablet 25 mg PO DAILY 06/18/23 06/18/23 History torsemide 5 mg tablet 5 mg PO DAILY 06/18/23 06/18/23 History ampicillin-sulbactam 3 gram 3 g IV Q6H #14 ea 06/24/23 Rx intravenous solution doxycycline hyclate 100 mg tablet 100 mg PO BID 9 days #18 tabs 06/24/23 Rx Hospital Stay Data Consultations 06/21/23 09:42 Consult Infectious Diseases Routine Procedures Performed Operation Date: 06/20/23 09:00 Actual Procedures p Incision and Drainage left thumb, flexor tendon repair.(Left) - Bismark Chadwick MD Diagnostic Imagining Performed 06/19/23 09:32 MRI Hand [MR hand LT wo/w con] Stat Pending Results Patient Have Any Pending Studies at Discharge: No Discharge Instructions Given to Patient (Per Discharging Provider) MEDICATION CHANGES: Unasyn 3gm Q6H x 14 days Doxycycline 100mg BID x 9 days (total 14 d course) SUMMARY OF TEST RESULTS: You were admitted with left thumb pain and found to have cellulitis and flexor tenosynovitis Left hand MRI with increased fluid and associated enhancement within the tendon sheath of the left flexor pollicis longus POD #3 I&D of left thumb and flexor tendon repair No growth to date on blood cultures Continue treatment with antibiotics as above per collaboration with ID and ortho surgery PENDING TEST RESULTS: None RECOMMENDATIONS FOR FOLLOW-UP: Follow up with PCP as scheduled [facility] ortho to follow up regarding appointment time for custom splint placement (Please call [phone] if any questions or concerns) Will be scheduled 10-14 days from surgery for suture removal with LUCAS Orr PA-C with [facility] ortho Ice and elevate left upper extremity, continue range of motion exercises per ortho surgery PICC teaching provided Complete antibiotic in its entirety Continue medication regimen as scheduled aside from changes noted above OTHER INSTRUCTIONS: Seek medical attention if you have: * temperature above 101 * chest pain or trouble breathing * abdominal pain, nausea, vomiting * diarrhea, dark stools or bloody stools * any unanswered questions or concerns Call [phone] if symptoms are severe. Please take good care of yourself. Call if you have any questions or problems. You can reach a [facility] hospitalist on duty at [facility] 24 hours a day by calling [phone]. Total Time Total Time Spent Total Time Spent (In Minutes): 60 Supervising Physician Co-Signing Physician Notes I have seen and discussed the case with the collaborating Thuy SMITH. I agree with the above H&P. I have reviewed and confirmed the patients medical history, the findings on physical examination, and the patients diagnosis and treatment plan with Quita BLANCHARD and agree with the information documented. In short, Mr Shaw is a 67 yo gentleman with flexor tendon lacteration s/p repair 06/20. ID tentatively requesting IV abx with Unasyn, however, awaiting culture data from [facility]-- came back neg growth, will use total of 14 days antibiotic therapy with unasyn and mrsa coverage (vanco inpatient to be replaced by doxy on dishcarge).
--- NOTE | 2023-06-24 14:51 | Orthopedic Progress Note ---
Date of Service June 24, 2023 Assessment & Plan (1) Flexor tenosynovitis of thumb: Plan: I instructed the patient on passive and active range of motion exercises for his thumb. Our office will contact him to get him an appointment for a custom removable splint. Discharged home today on antibiotics per infectious diseases and internal medicine. Ice and elevate left upper extremity He will follow-up 10-14 days from surgery for suture removal with LUCAS Orr PA-C Admission and Anticipated Discharge Date Admission Date: June 20, 2023 Subjective Patient seen and examined at bedside. He just got his PICC line placed. He reports his thumb is feeling well. He is anxious to get home. His cultures have come back with no growth. He has been on vancomycin and Zosyn to date. Physical Exam Physical Exam: I removed his splint. His incision is clean dry and intact. No erythema, drainage, or evidence of active infection. Neurovascular intact. He does have some stiffness in his thumb due to immobilization. Thumb opposition is about 3 cm off of the palm at the fifth metacarpal head. IP joint range of motion also limited 0 to 30 degrees. Distally neurovascularly intact. Results & Data Vital Signs (Past 12 Hours) Vital Signs Temp Pulse Resp BP Pulse Ox O2 Del Method 06/24/23 08:00 Room Air 06/24/23 07:56 36.5 C 69 16 133/77 95 Room Air Laboratory Results As stated above all of his cultures came back final negative.
[2023-06-24] MEDS ORDERED: DOXYCYCLINE HYCLATE 100 MG CAP PO SCH (14:55)
--- NOTE | 2023-06-24 15:34 | XRay Report ---
SINGLE VIEW CHEST CLINICAL HISTORY: PICC placement FINDINGS: An AP, portable, upright chest radiograph is compared to study dated 06/21/2023. The examina tion is degraded by portable technique and apical lordotic positioning. A right-sided PICC line is be en placed. The tip of the catheter projects over the cavoatrial junction. The heart is enlarged. The pulmonary vasculature is noncongested. The lungs and pleural spaces are clear noting mild bibasilar a telectasis. No pneumothorax is seen. The skeletal structures are osteopenic. There are chronic/healed left-sided rib fractures. IMPRESSION: 1. A right-sided PICC line has been placed as above. 2. Cardiomegaly with no acute cardiopulmonary abnormality identified. ACT 112: Negative or not required by law. Electronically signed by: Heriberto Salinas M.D. 06/24/2023 3:33 PM
== END 2023-06-24 16:49 | disposition home health service (06) | DRG 580 ==
LOC: 3N 16:13 → ED 16:13 → SUATTDRO 22:07 → 3N 22:32 → SUATTDRO 06-20 14:49

== ENCOUNTER 2024-02-03 00:18 | Observation (INO) ==
[2024-02-03 00:52] LABS: Basophils % (auto) 1.1 %; Eosinophils # (auto) 0.49 K/uL (0.00-0.50); Eosinophils % (auto) 5.3 %; Hematocrit (blood only) 39.4 % (42.0-52.0); Hemoglobin 13.3 g/dl (14.0-18.0); Immature Granulocytes # (auto) 0.01 K/uL (0.01-0.20); Immature Granulocytes % (auto) 0.1 %; Lymphocytes # (auto) 1.66 K/uL (1.20-3.40); Lymphocytes % (auto) 17.8 %; Mean Corpuscular Hemoglobin 30.1 pg (25.0-34.0); Mean Corpuscular Hgb Conc 33.8 g/dL (32.0-36.0); Mean Corpuscular Volume 89.1 fL (80.0-100.0); Mean Platelet Volume 11.4 fL (9.4-12.4); Monocytes # (auto) 1.04 K/uL (0.11-0.59); Monocytes % (auto) 11.2 %; Neutrophils # (auto) 6.02 K/uL (1.40-6.50); Neutrophils % (auto) 64.5 %; Platelet Count 230 K/uL (130-400); RDW Coefficient of Variation 13.2 % (11.5-14.5); RDW Standard Deviation 42.9 fL (36.4-46.3); Red Blood Count 4.42 M/uL (4.70-6.10); White Blood Count 9.32 K/ul (4.8-10.8)
--- NOTE | 2024-02-03 01:04 | Emergency Department Note ---
Impression & Plan Arm pain, Chest pain ED Provider Note NAME: MARINA FENG AGE: 68 SEX: M : 1955 ARRIVES VIA: Walk-In INFORMANT: Patient, ED PROVIDER(S): Roxanne Reagan MD CHIEF COMPLAINT: Arm pain HPI: This is a 68-year-old male history of CAD status post 2 stents presenting for left arm pain. Patient states that yesterday began having pain in his left arm. The pain was fairly severe underlying the tricep with radiation of pain into the chest. He notes that he was taking gabapentin and Tylenol with some relief for the past 3 hours but then decreased to feel any worse again. He has of the pain mainly is in the chest but mostly currently in the arm. He reports no shortness of breath or fevers. He did have a stress test done last week. I will to review this on his phone and the result states that he did not achieve his heart rate goal but with I did see was reassuring with normal EF. ROS: See above HPI for pertinent positives & negatives. A total of 10 systems reviewed and were otherwise negative. PHYSICAL EXAMINATION: General: resting comfortably in no acute distress Head: Normocephalic and atraumatic Eyes: Normal inspection, extraocular muscles intact Ear, nose, throat: Normal external exam Neck: Normal range of motion Respiratory: lungs clear to auscultation bilaterally Cardiovascular: Regular rate/rhythm, no murmur GI: soft, nontender, no guarding or rebound Extremities: nontender, moves all extremities Neuro: The patient awake and alert, appropriately conversive, no focal deficits, symmetric faces Skin: Warm, dry, and intact MEDICAL DECISION MAKING: This is a 68-year-old male with history of CAD status post 2 stents presenting for left arm pain. Patient notes the pain goes from his left arm into his chest. Concern for ACS versus PE versus low concern for dissection. No signs are reassuring without hypoxia or tachycardia. He had a recent stress test which is somewhat inconclusive that revealed normal EF. Otherwise his bilateral upper extremity shows equal 2+ pulses, well-perfused lower concern for arterial occlusion. Will do DVT study however to rule out upper extremity DVT. Low concern for traumatic injury such as fracture without dislocation as patient is forage of motion and had no traumatic injury to his knowledge. -DVT study preliminary report shows no DVT, by my independent rotation healthy no DVT -Patient's blood work is reassuring without significant abnormalities including negative troponin. Delta troponin is also negative. -Upon multiple hours reevaluation, patient has still has arm pain, more severe now slight radiation to the chest. Due to patient's persistent pain, will admit for further ACS rule out as he does have a not definitive stress test. Differential diagnosis: ACS, PE, musculoskeletal pain, shingles, radiculopathy ER treatment provided: See below Diagnostics interpreted by me: ECG: ECG independently interpreted by me with normal sinus rhythm, rate of 67, normal axis, normal DE, normal QRS, normal QTc, no ST segment elevations consistent with STEMI criteria Cardiac Monitoring: An order was placed for continuous cardiac monitoring. The monitor shows a rate of 61 with sinus rhythm. Laboratory studies: As stated above and show below. Imaging studies: See below. Past Med/Surg History Problem List (Updated 02/03/24 @ 06:55 by Roxanne Reagan MD) Chest pain (Acute) Arm pain (Acute) Chest pain Encounter for pre-operative examination Anemia Flexor tenosynovitis of thumb (Acute) Laceration of left thumb with infection Abdominal pain (Acute) Leukocytosis (Acute) Fever (Acute) Elevated procalcitonin (Acute) MONIK (acute kidney injury) E coli infection Sepsis Leukocytosis HTN (hypertension) CAD S/P percutaneous coronary angioplasty Medical History (Updated 02/03/24 @ 06:55 by Roxanne Reagan MD) Hyperlipidemia Hypertension Coronary artery disease Surgical History History of coronary artery stent placement Family History Other Family history non-contributory Social History Smoking Status: Never smoker Second Hand Exposure: No; Do You Dip or Chew Tobacco: No; Hx Alcohol Use: Yes Alcohol type: wine Hx Substance Use: No Preferred Language: [place] Communication Ability: Effective Merchandising Intern Required: No Beliefs That Will Affect Care: Evangelical Evangelical Beliefs: Catholic Current Living Situation: Other Current Living Situation Comment: spouse and niece Feels Safe at Home: Yes Assistive Devices: None Allergies Allergies Allergy/AdvReac Type Severity Reaction Status Date / Time tetracycline Allergy Mild RASH Verified 05/21/22 20:34 codeine Allergy Unknown Unknown Verified 05/21/22 20:34 shrimp AdvReac Mild NECK Verified 05/21/22 20:34 SWELLS IF HE EATS ALOT OF THEM enalapril AdvReac Cough Verified 05/21/22 20:34 Home Meds Home Medications Medication Instructions Recorded Confirmed albuterol sulfate 90 mcg/actuation 2 puff inhalation Q4H PRN 06/18/23 02/03/24 aerosol inhaler Shortness Of Breath Or Wheezing amlodipine 5 mg tablet 5 mg PO DAILY 06/18/23 02/03/24 aspirin 81 mg tablet,delayed 81 mg PO DAILY 06/18/23 02/03/24 release clopidogrel 75 mg tablet 75 mg PO DAILY 06/18/23 02/03/24 famotidine 20 mg tablet 20 mg PO DAILY 06/18/23 02/03/24 gabapentin 100 mg capsule 100 mg PO TID 06/18/23 02/03/24 hydrochlorothiazide 25 mg tablet 25 mg PO DAILY 06/18/23 02/03/24 losartan 100 mg tablet 100 mg PO DAILY 06/18/23 02/03/24 metoprolol succinate 25 mg 25 mg PO BID 06/18/23 02/03/24 tablet,extended release 24 hr pantoprazole 40 mg tablet,delayed 40 mg PO DAILY 06/18/23 02/03/24 release rosuvastatin 40 mg tablet 40 mg PO HS 06/18/23 02/03/24 torsemide 5 mg tablet 5 mg PO DAILY 06/18/23 02/03/24 Zyrtec 10 mg PO HS 02/03/24 02/03/24 docusate sodium 100 mg PO DAILY 02/03/24 02/03/24 nitroglycerin 0.4 mg PO PRN Chest Pain 02/03/24 Results & Data (ED) Vital Signs Vital Signs - 24 hr 02/03/24 00:22 02/03/24 03:00 02/03/24 04:50 Temperature 36.9 C Temperature Source Temporal Artery Scan Pulse Rate 70 55 L Pulse Rate [Finger] 59 L Pulse Rhythm Pulse Rhythm [Finger] Regular Respiratory Rate 17 15 14 Respiratory Effort / Characteristics Non-Labored Respiratory Depth Normal Respiratory Pattern Regular Blood Pressure 145/79 H Blood Pressure [Right Arm] 131/77 Blood Pressure Mean 101 Blood Pressure Mean [Right Arm] 95 Blood Pressure Position [Right Arm] Lying Pulse Oximetry 97 95 Oxygen Delivery Method Room Air Room Air Sepsis Recent Fever Within 48 Hours No Sepsis New/Unexplained Change in Mental Status No Sepsis Action Taken by Nursing No Action Required 02/03/24 04:51 02/03/24 05:00 02/03/24 06:00 Temperature Temperature Source Pulse Rate 55 L 55 L 55 L Pulse Rate [Finger] Pulse Rhythm Pulse Rhythm [Finger] Respiratory Rate 17 16 Respiratory Effort / Characteristics Respiratory Depth Respiratory Pattern Blood Pressure 131/77 120/76 Blood Pressure [Right Arm] Blood Pressure Mean 95 90 Blood Pressure Mean [Right Arm] Blood Pressure Position [Right Arm] Pulse Oximetry 95 94 Oxygen Delivery Method Sepsis Recent Fever Within 48 Hours Sepsis New/Unexplained Change in Mental Status Sepsis Action Taken by Nursing 02/03/24 06:48 Temperature Temperature Source Pulse Rate 61 Pulse Rate [Finger] Pulse Rhythm Regular Pulse Rhythm [Finger] Respiratory Rate 16 Respiratory Effort / Characteristics Respiratory Depth Respiratory Pattern Blood Pressure Blood Pressure [Right Arm] Blood Pressure Mean Blood Pressure Mean [Right Arm] Blood Pressure Position [Right Arm] Pulse Oximetry 95 Oxygen Delivery Method Room Air Sepsis Recent Fever Within 48 Hours Sepsis New/Unexplained Change in Mental Status Sepsis Action Taken by Nursing Laboratory Data 02/03/24 06:18 02/03/24 00:34 Lab Results 02/03/24 02/03/24 02/03/24 Range/Units 00:34 03:46 05:57 WBC 9.32 (4.8-10.8) K/ul RBC 4.42 L (4.70-6.10) M/uL Hgb 13.3 L (14.0-18.0) g/dl Hct 39.4 L (42.0-52.0) % MCV 89.1 (80.0-100.0) fL MCH 30.1 (25.0-34.0) pg MCHC 33.8 (32.0-36.0) g/dL RDW Std Deviation 42.9 (36.4-46.3) fL RDW Coeff of Mary 13.2 (11.5-14.5) % Plt Count 230 (130-400) K/uL MPV 11.4 (9.4-12.4) fL Immature Gran % (Auto) 0.1 % Neut % (Auto) 64.5 % Lymph % (Auto) 17.8 % Trigg % (Auto) 11.2 % Eos % (Auto) 5.3 % Baso % (Auto) 1.1 % Reticulocyte % (Auto) (0.50-2.00) % Neut # (Auto) 6.02 (1.40-6.50) K/uL Lymph # (Auto) 1.66 (1.20-3.40) K/uL Trigg # (Auto) 1.04 H (0.11-0.59) K/uL Eos # (Auto) 0.49 (0.00-0.50) K/uL Baso # (Auto) 0.10 (0.00-0.20) K/uL Reticulocyte # (0.020-0.100) 10^6/uL Immature Gran # (Auto) 0.01 (0.01-0.20) K/uL APTT 26 (21-31) Seconds PTT Ratio 1.0 Sodium 140 (136-145) mmol/L Potassium 4.0 (3.5-5.1) mmol/L Chloride 106 (98-107) mmol/L Carbon Dioxide 27 (21-32) mmol/L Anion Gap 7 (3-11) BUN 34 H (6-23) mg/dl Creatinine 1.55 H (0.6-1.4) mg/dl Est Cr Clr Drug Dosing 53.0 ml/min Est GFR ( Amer) 51.8 ml/min Est GFR (Non-Af Amer) 44.7 ml/min BUN/Creatinine Ratio 21.9 H (10-20) Glucose 110 H (70-99(Fasting)) mg/dl Calcium 9.3 (8.6-10.3) mg/dl Magnesium 1.8 (1.7-2.4) mg/dl Iron 46 (35-175) mcg/dl Transferrin 267 (200-360) mg/dl Total Bilirubin 0.3 (0.2-1.0) mg/dl AST 20 (13-39) U/L ALT 21 (7-52) U/L Alkaline Phosphatase 46 (34-104) U/L Troponin I High Sens 3.9 6.9 4.0 (0-20) pg/ml Total Protein 6.9 (6.0-8.3) gm/dl Albumin 4.3 (3.4-5.0) gm/dl Globulin 2.6 (2.5-4.0) gm/dl Albumin/Globulin Ratio 1.7 (0.9-2) Lipase 42 (11-82) U/L TSH 1.153 (0.300-4.500) uIu/ml 02/03/24 Range/Units 06:18 WBC (4.8-10.8) K/ul RBC (4.70-6.10) M/uL Hgb 12.2 L (14.0-18.0) g/dl Hct 35.8 L (42.0-52.0) % MCV (80.0-100.0) fL MCH (25.0-34.0) pg MCHC (32.0-36.0) g/dL RDW Std Deviation (36.4-46.3) fL RDW Coeff of Mary (11.5-14.5) % Plt Count (130-400) K/uL MPV (9.4-12.4) fL Immature Gran % (Auto) % Neut % (Auto) % Lymph % (Auto) % Trigg % (Auto) % Eos % (Auto) % Baso % (Auto) % Reticulocyte % (Auto) 1.94 (0.50-2.00) % Neut # (Auto) (1.40-6.50) K/uL Lymph # (Auto) (1.20-3.40) K/uL Trigg # (Auto) (0.11-0.59) K/uL Eos # (Auto) (0.00-0.50) K/uL Baso # (Auto) (0.00-0.20) K/uL Reticulocyte # 0.080 (0.020-0.100) 10^6/uL Immature Gran # (Auto) (0.01-0.20) K/uL APTT (21-31) Seconds PTT Ratio Sodium (136-145) mmol/L Potassium (3.5-5.1) mmol/L Chloride (98-107) mmol/L Carbon Dioxide (21-32) mmol/L Anion Gap (3-11) BUN (6-23) mg/dl Creatinine (0.6-1.4) mg/dl Est Cr Clr Drug Dosing ml/min Est GFR ( Amer) ml/min Est GFR (Non-Af Amer) ml/min BUN/Creatinine Ratio (10-20) Glucose (70-99(Fasting)) mg/dl Calcium (8.6-10.3) mg/dl Magnesium (1.7-2.4) mg/dl Iron (35-175) mcg/dl Transferrin (200-360) mg/dl Total Bilirubin (0.2-1.0) mg/dl AST (13-39) U/L ALT (7-52) U/L Alkaline Phosphatase (34-104) U/L Troponin I High Sens (0-20) pg/ml Total Protein (6.0-8.3) gm/dl Albumin (3.4-5.0) gm/dl Globulin (2.5-4.0) gm/dl Albumin/Globulin Ratio (0.9-2) Lipase (11-82) U/L TSH (0.300-4.500) uIu/ml Administered Medications Lactated Ringer's (Lr) 1,000 mls @ 50 mls/hr IV .Q20H ONE Stop: 02/04/24 00:54 Last Admin: 02/03/24 06:26 Dose: 50 mls/hr Documented By: LATASHA Discontinued Medications Acetaminophen (Ofirmev) 1,000 mg in 100 mls @ 400 mls/hr IV NOW STA Stop: 02/03/24 04:23 Last Infusion: 02/03/24 04:41 Dose: Infused Documented By: Admin: 02/03/24 04:20 Dose: 400 mls/hr Documented By: LATASHA Imaging Data Radiologist's Impression: Extremity Venous Study 02/03/24 00:58 Exam(s): US VENOUS LEFT UPPER EXTREMITY EXAM: US Duplex Left Upper Extremity Veins CLINICAL HISTORY: Reason for exam: Rule out DVT. TECHNIQUE: Real-time duplex ultrasound scan of the left upper extremity veins integrating B-mode two-dimensional vascular structure, Doppler spectral analysis, color flow Doppler imaging and compression. COMPARISON: No relevant prior studies available. FINDINGS: Deep veins: Unremarkable. No DVT in the internal jugular, subclavian, axillary, or brachial veins. The veins demonstrate normal color flow, are normally compressible, with normal phasic flow and/or augmentation response. Superficial veins: Unremarkable. No thrombus in the visualized basilic and cephalic veins. Soft tissues: No acute findings. IMPRESSION: Normal left upper extremity duplex venous ultrasound. Electronically signed by: Gera Ferrera MD 02/03/24 05:11 AM Discharge Plan Visit Data Chief Complaint: Arm Pain Stated Complaint: PAIN IN LEFT ARM OVER TO SHOULDER AND CHEST ED Provider: Roxanne Reagan Discharge Problem: Arm pain, Chest pain Forms Stand Alone Forms: My [facility] Prescriptions Prescriptions: No Action clopidogrel 75 mg tablet 75 mg PO DAILY amlodipine 5 mg tablet 5 mg PO DAILY aspirin 81 mg Tablet,Delayed Release (Dr/Ec) 81 mg PO DAILY famotidine 20 mg tablet 20 mg PO DAILY torsemide 5 mg tablet 5 mg PO DAILY pantoprazole 40 mg tablet,delayed release (DR/EC) 40 mg PO DAILY hydrochlorothiazide 25 mg tablet 25 mg PO DAILY gabapentin 100 mg capsule 100 mg PO TID metoprolol succinate 25 mg tablet extended release 24 hr 25 mg PO BID Rx Instructions: 1tab in am and 0.5tab in pm albuterol sulfate 90 mcg/actuation HFA aerosol inhaler 2 puff INHALATION Q4H PRN (Reason: Shortness Of Breath Or Wheezing) losartan 100 mg tablet 100 mg PO DAILY rosuvastatin 40 mg tablet 40 mg PO HS Zyrtec 10 mg PO HS docusate sodium 100 mg 100 mg PO DAILY nitroglycerin 0.4 mg PO PRN (Reason: Chest Pain) Referrals Referrals: Sabino Izaguirre MD [Primary Care Provider] -
[2024-02-03 01:09] LABS: Albumin Globulin Ratio 1.7 (0.9-2); Albumin Level 4.3 gm/dl (3.4-5.0); BUN Creatinine Ratio 21.9 (10-20); Bilirubin,Total 0.3 mg/dl (0.2-1.0); Calcium 9.3 mg/dl (8.6-10.3); Est GFR (African American) 51.8 ml/min; Est GFR (Non-African American) 44.7 ml/min; Globulin 2.6 gm/dl (2.5-4.0); Total Protein 6.9 gm/dl (6.0-8.3)
[2024-02-03 01:14] LABS: Troponin I High Sensitivity 3.9 pg/ml (0-20)
[2024-02-03 04:17] LABS: Troponin I High Sensitivity 6.9 pg/ml (0-20)
[2024-02-03] MEDS: ACETAMINOPHEN 1,000 MG/100 ML VIAL IV STA (04:20)
--- NOTE | 2024-02-03 05:12 | Ultrasound Report ---
Exam(s): US VENOUS LEFT UPPER EXTREMITY EXAM: US Duplex Left Upper Extremity Veins CLINICAL HISTORY: Reason for exam: Rule out DVT. TECHNIQUE: Real-time duplex ultrasound scan of the left upper extremity veins integrating B-mode two-dimensional vascular structure, Doppler spectral analysis, color flow Doppler imaging and compression. COMPARISON: No relevant prior studies available. FINDINGS: Deep veins: Unremarkable. No DVT in the internal jugular, subclavian, axillary, or brachial veins. The veins demonstrate normal color flow, are normally compressible, with normal phasic flow and/or augmentation response. Superficial veins: Unremarkable. No thrombus in the visualized basilic and cephalic veins. Soft tissues: No acute findings. IMPRESSION: Normal left upper extremity duplex venous ultrasound. Electronically signed by: Gera Ferrera MD 02/03/24 05:11 AM
[2024-02-03 05:16] LABS: Magnesium 1.8 mg/dl (1.7-2.4)
[2024-02-03 05:32] LABS: Thyroid Stimulating Hormone 1.153 uIu/ml (0.300-4.500)
--- NOTE | 2024-02-03 05:37 | History & Physical Report ---
Date of Service February 03, 2024 Assessment & Plan (1) Chest pain: Plan: Possible unstable angina hx CAD status post stent valvular heart disease (mild AR/TR, TTE 2023) PVD hypertension, stable hyperlipidemia on statin Rx ARF on CKD New onset anemia, patient denies overt bleed symptoms, FOBT done at the ER was negative prediabetes, hemoglobin A1c of 5.7 last year hx GERD, stable on PPI OBS PCU Aspirin, beta-niraj, statin Rx Follow troponin IV heparin if with troponin progression for NSTEMI Cardiology consult Re: Chest pain/left arm pain N.p.o. until patient seen by cardiology in anticipation of ischemic workup Baseline UA, monitor creatinine response to IVF, hold home diuretic and losartan for now until creatinine back to baseline Anemia workup DVT prophylaxis. Heparin subcu Full code Patient requesting updates providers. Ms. Colette Moreno, contact #[phone]. Text document was generated using [employer] voice recognition software. It may contain grammatical or spelling errors. Kindly contact undersigned for clarification of any documentation item in question. History of Present Illness Chief Complaint: Left arm pain going to the chest Primary Care Provider: Sabino Izaguirre MD History obtained from patient, family, and records. Medical history significant for CAD status post stent, valvular heart disease (mild AR/TR, TTE 2023), PVD, hypertension, hyperlipidemia, CRI (baseline creatinine 1.3-1.4), prediabetes, GERD. Last confinement June 2023 for infected laceration left thumb status post surgery. Postop anemia of 10 back to normal on outpatient blood draw September 2023. Patient complained of single chest pain episode and dyspnea on exertion during [facility] Card[facility] visit last May 2023. Outpatient exercise stress echo last week. Stress test negative as per report. No evidence of ischemia (blockage) Examination is inadequate to evaluate the referral indication. Consider pharmacologic nuclear stress testing. No evidence of exercise-induced ischemia at 66% of the maximal, age predicted heart rate. The low heart rate response to stress reduces the sensitivity of this test for the detection of coronary artery disease or ischemia. There was attenuated heart rate response to exercise likely related to medication(s). Yesterday morning, patient roused from sleep by left upper extremity pain inner aspect with some radiation to the neck. Not worse with motion. No recollection of recent trauma although patient is a side sleeper. Tolerable discomfort with gabapentin and Tylenol Rx. Worsening discomfort later noted last night with radiation to the chest. No shortness of breath. No unusual cough symptoms. Compliant with home medications. Different from usual anginal attack as per patient. Denies abdominal pain/black/bloody stools/hematuria. Patient brought to ER for evaluation by . 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 Allergies Allergy/AdvReac Type Severity Reaction Status Date / Time tetracycline Allergy Mild RASH Verified 05/21/22 20:34 codeine Allergy Unknown Unknown Verified 05/21/22 20:34 shrimp AdvReac Mild NECK Verified 05/21/22 20:34 SWELLS IF HE EATS ALOT OF THEM enalapril AdvReac Cough Verified 05/21/22 20:34 Home Medications Medication Instructions Recorded Confirmed Type albuterol sulfate 90 mcg/actuation 2 puff inhalation Q4H PRN 06/18/23 02/03/24 History aerosol inhaler Shortness Of Breath Or Wheezing amlodipine 5 mg tablet 5 mg PO DAILY 06/18/23 02/03/24 History aspirin 81 mg tablet,delayed 81 mg PO DAILY 06/18/23 02/03/24 History release clopidogrel 75 mg tablet 75 mg PO DAILY 06/18/23 02/03/24 History famotidine 20 mg tablet 20 mg PO DAILY 06/18/23 02/03/24 History gabapentin 100 mg capsule 100 mg PO TID 06/18/23 02/03/24 History hydrochlorothiazide 25 mg tablet 25 mg PO DAILY 06/18/23 02/03/24 History losartan 100 mg tablet 100 mg PO DAILY 06/18/23 02/03/24 History metoprolol succinate 25 mg 25 mg PO BID 06/18/23 02/03/24 History tablet,extended release 24 hr pantoprazole 40 mg tablet,delayed 40 mg PO DAILY 06/18/23 02/03/24 History release rosuvastatin 40 mg tablet 40 mg PO HS 06/18/23 02/03/24 History torsemide 5 mg tablet 5 mg PO DAILY 06/18/23 02/03/24 History Zyrtec 10 mg PO HS 02/03/24 02/03/24 History docusate sodium 100 mg PO DAILY 02/03/24 02/03/24 History nitroglycerin 0.4 mg PO PRN Chest Pain 02/03/24 History Past Med/Surg History Problem List (Updated 02/03/24 @ 06:55 by Roxanne Reagan MD) Chest pain (Acute) Arm pain (Acute) Chest pain Encounter for pre-operative examination Anemia Flexor tenosynovitis of thumb (Acute) Laceration of left thumb with infection Abdominal pain (Acute) Leukocytosis (Acute) Fever (Acute) Elevated procalcitonin (Acute) MONIK (acute kidney injury) E coli infection Sepsis Leukocytosis HTN (hypertension) CAD S/P percutaneous coronary angioplasty Medical History (Updated 02/03/24 @ 06:55 by Roxanne Reagan MD) Hyperlipidemia Hypertension Coronary artery disease Surgical History History of coronary artery stent placement Family History Other Family history non-contributory Social History Smoking Status: Never smoker Second Hand Exposure: No; Do You Dip or Chew Tobacco: No; Hx Alcohol Use: Yes Alcohol type: wine Hx Substance Use: No Preferred Language: Comoran Communication Ability: Effective Manufacturing 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 Required: No Beliefs That Will Affect Care: Sabianism Sabianism Beliefs: Restorationist Current Living Situation: Other Current Living Situation Comment: spouse and niece Feels Safe at Home: Yes Assistive Devices: None Review of Systems Review of Systems: As per HPI, all other systems reviewed and negative Physical Exam Physical Exam: GENERAL: Pleasant, obese, no respiratory distress SKIN: Pallor, warm HEENT: Pale palpebral conjunctivae, no ptosis, dry buccal mucosa NECK : Supple, short neck, no tenderness CHEST : CTA, no tenderness HEART : Bradycardic, no obvious murmurs ABDOMEN: Some distention, nontender RECTAL : Intact sphincter, brown stool (FOBT negative) EXTREMITIES : No LE swelling/tenderness, negative UE tenderness, no other conspicuous deformities noted NEUROLOGIC : Coherent, no facial asymmetry, no other gross focality Results & Data Results & Data Vital Signs (Past 12 Hours) Vital Signs Temp Pulse Pulse Resp BP BP Pulse Ox 02/03/24 05:00 55 L 17 131/77 95 02/03/24 04:51 55 L 02/03/24 04:50 55 L 14 02/03/24 03:00 59 L 15 131/77 95 02/03/24 00:22 36.9 C 70 17 145/79 H 97 O2 Del Method 02/03/24 05:00 02/03/24 04:51 02/03/24 04:50 02/03/24 03:00 Room Air 02/03/24 00:22 Room Air Laboratory Results Laboratory Results WBC 9.32 K/ul (4.8-10.8) 02/03/24 00:34 RBC 4.42 M/uL (4.70-6.10) L 02/03/24 00:34 Hgb 13.3 g/dl (14.0-18.0) L 02/03/24 00:34 Hct 39.4 % (42.0-52.0) L 02/03/24 00:34 MCV 89.1 fL (80.0-100.0) 02/03/24 00:34 MCH 30.1 pg (25.0-34.0) 02/03/24 00:34 MCHC 33.8 g/dL (32.0-36.0) 02/03/24 00:34 RDW Std Deviation 42.9 fL (36.4-46.3) 02/03/24 00:34 RDW Coeff of Mary 13.2 % (11.5-14.5) 02/03/24 00:34 Plt Count 230 K/uL (130-400) 02/03/24 00:34 MPV 11.4 fL (9.4-12.4) 02/03/24 00:34 Immature Gran % (Auto) 0.1 % 02/03/24 00:34 Neut % (Auto) 64.5 % 02/03/24 00:34 Lymph % (Auto) 17.8 % 02/03/24 00:34 [place] % (Auto) 11.2 % 02/03/24 00:34 Eos % (Auto) 5.3 % 02/03/24 00:34 Baso % (Auto) 1.1 % 02/03/24 00:34 Neut # (Auto) 6.02 K/uL (1.40-6.50) 02/03/24 00:34 Lymph # (Auto) 1.66 K/uL (1.20-3.40) 02/03/24 00:34 [place] # (Auto) 1.04 K/uL (0.11-0.59) H 02/03/24 00:34 Eos # (Auto) 0.49 K/uL (0.00-0.50) 02/03/24 00:34 Baso # (Auto) 0.10 K/uL (0.00-0.20) 02/03/24 00:34 Immature Gran # (Auto) 0.01 K/uL (0.01-0.20) 02/03/24 00:34 Sodium 140 mmol/L (136-145) 02/03/24 00:34 Potassium 4.0 mmol/L (3.5-5.1) 02/03/24 00:34 Chloride 106 mmol/L (98-107) 02/03/24 00:34 Carbon Dioxide 27 mmol/L (21-32) 02/03/24 00:34 Anion Gap 7 (3-11) 02/03/24 00:34 BUN 34 mg/dl (6-23) H 02/03/24 00:34 Creatinine 1.55 mg/dl (0.6-1.4) H 02/03/24 00:34 Est Cr Clr Drug Dosing 53.0 ml/min 02/03/24 00:34 Est GFR ( Amer) 51.8 ml/min 02/03/24 00:34 Est GFR (Non-Af Amer) 44.7 ml/min 02/03/24 00:34 BUN/Creatinine Ratio 21.9 (10-20) H 02/03/24 00:34 Glucose 110 mg/dl (70-99(Fasting)) H 02/03/24 00:34 Calcium 9.3 mg/dl (8.6-10.3) 02/03/24 00:34 Magnesium 1.8 mg/dl (1.7-2.4) 02/03/24 03:46 Total Bilirubin 0.3 mg/dl (0.2-1.0) 02/03/24 00:34 AST 20 U/L (13-39) 02/03/24 00:34 ALT 21 U/L (7-52) 02/03/24 00:34 Alkaline Phosphatase 46 U/L (34-104) 02/03/24 00:34 Troponin I High Sens 6.9 pg/ml (0-20) 02/03/24 03:46 Total Protein 6.9 gm/dl (6.0-8.3) 02/03/24 00:34 Albumin 4.3 gm/dl (3.4-5.0) 02/03/24 00:34 Globulin 2.6 gm/dl (2.5-4.0) 02/03/24 00:34 Albumin/Globulin Ratio 1.7 (0.9-2) 02/03/24 00:34 Lipase 42 U/L (11-82) 02/03/24 00:34 TSH 1.153 uIu/ml (0.300-4.500) 02/03/24 03:46 Impressions Extremity Venous Study 02/03/24 00:58 Exam(s): US VENOUS LEFT UPPER EXTREMITY EXAM: US Duplex Left Upper Extremity Veins CLINICAL HISTORY: Reason for exam: Rule out DVT. TECHNIQUE: Real-time duplex ultrasound scan of the left upper extremity veins integrating B-mode two-dimensional vascular structure, Doppler spectral analysis, color flow Doppler imaging and compression. COMPARISON: No relevant prior studies available. FINDINGS: Deep veins: Unremarkable. No DVT in the internal jugular, subclavian, axillary, or brachial veins. The veins demonstrate normal color flow, are normally compressible, with normal phasic flow and/or augmentation response. Superficial veins: Unremarkable. No thrombus in the visualized basilic and cephalic veins. Soft tissues: No acute findings. IMPRESSION: Normal left upper extremity duplex venous ultrasound. Electronically signed by: Gera Ferrera MD 02/03/24 05:11 AM Diagnostic Findings Chest x-ray as per my interpretation, atelectasis no congestion EKG as per my interpretation : Rate 65, NSR, LAD, LAFB, LVH, T wave flattening inferior leads
[2024-02-03] MEDS ORDERED: PROMETHAZINE HCL 6.25 MG in SODIUM CHLORIDE 0.9% 50 ML IV PRN (05:40)
[2024-02-03] MEDS: LACTATED RINGER'S 1,000 ML IV ONE (06:26)
[2024-02-03 06:37] LABS: Hematocrit (blood only) 35.8 % (42.0-52.0); Hemoglobin 12.2 g/dl (14.0-18.0); Reticulocyte % 1.94 % (0.50-2.00); Reticulocytes # 0.08 10^6/uL (0.020-0.100)
[2024-02-03 06:53] LABS: Partial Thromboplastin Time 26 Seconds (21-31)
[2024-02-03] MEDS: NITROGLYCERIN SL 0.4 MG/TAB TAB SL PRN (07:10)
--- NOTE | 2024-02-03 07:11 | XRay Report ---
XR chest 1V portable CLINICAL HISTORY: Chest pain, nonspecific TECHNIQUE: Single frontal radiograph of the chest was obtained. Comparison: Comparison is made to chest radiograph 06/24/2023 FINDINGS: No lines and tubes are seen. The cardiomediastinal silhouette is normal. The lungs are clear. No evid ence of pleural effusion or pneumothorax. IMPRESSION: No acute chest disease. ACT 112: Negative or not required by law. Electronically signed by: Roc Metcalf M.D. 02/03/2024 7:09 AM
[2024-02-03] MEDS: NITROGLYCERIN SL 0.4 MG/TAB TAB SL STA (07:17)
[2024-02-03 07:24] LABS: Folate (Folic Acid),Ser orPlas > 22.30 ng/ml (>5.38)
--- NOTE | 2024-02-03 07:24 | XRay Report ---
XR humerus LT 2V CLINICAL HISTORY: pain TECHNIQUE: 2 radiographic views of the left humerus were obtained. Comparison: None available at the time of this dictation. FINDINGS: There is no evidence for fracture, subluxation or dislocation. The visualized portion of the shoulder and elbow joints are unremarkable. The overlying soft tissues are unremarkable. IMPRESSION: No acute osseous injury. ACT 112: Negative or not required by law. Electronically signed by: Roc Metcalf M.D. 02/03/2024 7:23 AM
[2024-02-03 07:25] LABS: Vitamin B12 410 pg/ml (180-914)
[2024-02-03] MEDS: HYDROmorphone INJ 0.5 MG/0.5 ML SYR IV PRN (07:38)
[2024-02-03 07:48] LABS: Appearance Urine Clear (Clear); Bilirubin Urine Negative (Negative); Blood Urine Negative (Negative); Color Urine Yellow; Glucose Urine UA Negative (Negative); Ketones Urine Negative (Negative); Leukocyte Esterase Urine Negative (Negative); Nitrite Urine Negative (Negative); Protein Urine Negative (Negative); Urobilinogen Urine Negative (Negative); pH Urine 5.5 (4.5-7.5)
--- NOTE | 2024-02-03 08:05 | Electrocardiogram Report ---
Test Reason : Blood Pressure : / mmHG Vent. Rate : 067 BPM Atrial Rate : 067 BPM P-R Int : 194 ms QRS Dur : 094 ms QT Int : 400 ms P-R-T Axes : 024 -18 018 degrees QTc Int : 422 ms Normal sinus rhythm Minimal voltage criteria for LVH, may be normal variant Borderline ECG When compared with ECG of 21-MAY-2022 19:32, No significant change was found Confirmed by Anshul Dumont ([id number]) on 02/03/2024 8:05:06 AM Referred By: REFERRED SELF Confirmed By:Reji Dumont
[2024-02-03] MEDS: PANTOprazole 40 MG TAB PO SCH (09:30)
[2024-02-03] MEDS: FAMOTIDINE 20 MG TAB PO SCH (09:30)
[2024-02-03] MEDS: METOPROLOL SUCC 25MG EXT REL TAB PO SCH (09:30)
[2024-02-03] MEDS: GABAPENTIN 100 MG CAP PO SCH (09:30)
[2024-02-03] MEDS: HEPARIN SOD 5,000 UNIT/0.5 ML VIAL SQ SCH (09:30)
[2024-02-03] MEDS: ASPIRIN 81 MG ECTAB PO SCH (09:30)
[2024-02-03] MEDS: CLOPIDOGREL BISULFATE 75 MG TAB PO SCH (09:30)
[2024-02-03] MEDS: amLODIPine BESYLATE 5 MG TAB PO SCH (09:30)
[2024-02-03] MEDS: DOCUSATE SODIUM 100 MG CAP PO SCH (09:30)
[2024-02-03] MEDS: oxyCODONE HCL IR 5 MG TAB (IMMEDIATE RELEASE) PO PRN (09:37)
[2024-02-03] MEDS: ACETAMINOPHEN 325 MG TAB PO PRN (11:43)
[2024-02-03 12:07] LABS: Hematocrit (blood only) 39.3 % (42.0-52.0); Hemoglobin 13.2 g/dl (14.0-18.0)
--- NOTE | 2024-02-03 13:54 | Cardiology Consultation ---
Date of Consultation February 03, 2024 Assessment & Plan (1) Arm pain: Symptoms are not similar in character to his prior angina but are still concerning given his history. HS troponin negative x 3 Advance diet. Continue outpatient cardiac medications including dual antiplatelet therapy with aspirin clopidogrel, metoprolol succinate 25 mg twice daily, and rosuvastatin. Losartan and HCTZ on hold due to mild acute renal insufficiency. Agree with subcutaneous heparin for DVT prophylaxis. If patient able to walk sufficiently, will consider stress echo on 02/04/24. History of Present Illness Attending Physician: Garett Alexis MD History of Present Illness Mr Shaw is a 68 year old male seen in cardiology consultation per the request of Dr Buchanan for the evaluation of left arm and back pain as a possible anginal equivalent. Pt resting comfortably on my arrival in from 458-1. Spouse at bedside. On the evening 2 days prior to admission patient experienced transient left arm pain that had gone away on its own. Last evening it came back and was associated with a brief amount of pain between his shoulder blades. Currently left arm with mild residual discomfort. Cardiac Problems: 1.CAD: status post stent to the left circumflex at [facility] in 2004. 2.-recurrent chest pain in 2012 with abnormal stress testing, leading to PCI of the LAD with drug-eluting stent 3.-abnormal nuclear stress test 09/11/2013 leading to repeat cardiac catheterization with patent mid LAD stent and mild in stent restenosis. The distal LAD was noted to have a stenosis in a calcified area of small caliber tortuous vessel. 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 Allergies Allergy/AdvReac Type Severity Reaction Status Date / Time tetracycline Allergy Mild RASH Verified 05/21/22 20:34 codeine Allergy Unknown Unknown Verified 05/21/22 20:34 shrimp AdvReac Mild NECK Verified 05/21/22 20:34 SWELLS IF HE EATS ALOT OF THEM enalapril AdvReac Cough Verified 05/21/22 20:34 Home Medications Medication Instructions Recorded Confirmed Type albuterol sulfate 90 mcg/actuation 2 puff inhalation Q4H PRN 06/18/23 02/03/24 History aerosol inhaler Shortness Of Breath Or Wheezing amlodipine 5 mg tablet 5 mg PO DAILY 06/18/23 02/03/24 History aspirin 81 mg tablet,delayed 81 mg PO DAILY 06/18/23 02/03/24 History release clopidogrel 75 mg tablet 75 mg PO DAILY 06/18/23 02/03/24 History famotidine 20 mg tablet 20 mg PO DAILY 06/18/23 02/03/24 History gabapentin 100 mg capsule 100 mg PO TID 06/18/23 02/03/24 History hydrochlorothiazide 25 mg tablet 25 mg PO DAILY 06/18/23 02/03/24 History losartan 100 mg tablet 100 mg PO DAILY 06/18/23 02/03/24 History metoprolol succinate 25 mg 25 mg PO BID 06/18/23 02/03/24 History tablet,extended release 24 hr pantoprazole 40 mg tablet,delayed 40 mg PO DAILY 06/18/23 02/03/24 History release rosuvastatin 40 mg tablet 40 mg PO HS 06/18/23 02/03/24 History torsemide 5 mg tablet 5 mg PO DAILY 06/18/23 02/03/24 History Zyrtec 10 mg PO HS 02/03/24 02/03/24 History docusate sodium 100 mg PO DAILY 02/03/24 02/03/24 History nitroglycerin 0.4 mg PO PRN Chest Pain 02/03/24 History Patient History Medical History Hyperlipidemia Hypertension Coronary artery disease Surgical History History of coronary artery stent placement Family History Other Family history non-contributory Social History Smoking Status: Never smoker Second Hand Exposure: No; Do You Dip or Chew Tobacco: No; Hx Alcohol Use: No Hx Substance Use: No Preferred Language: Kiswahili Communication Ability: Effective Instrument Sterilizer Required: No Beliefs That Will Affect Care: None Current Living Situation: Spouse Current Living Situation Comment: spouse and niece Other Information That Helps Us Care for You: No Feels Safe at Home: Yes Safety Concerns: Feels Safe At This Time Assistive Devices: Glasses Review of Systems Review of Systems: All systems reviewed & are unremarkable except as noted in HPI & below Physical Exam Constitutional: WD/WN, vitals as above Eyes: PERRL, conjunctivae normal, anicteric sclerae Respiratory: normal respiratory effort, lungs clear to auscultation Cardiovascular: RRR, no murmur, no edema Gastrointestinal (Abdomen): normal bowel sounds, soft, nontender, no hepatosplenomegaly Neurologic: PERRL, EOMI, accommodation nl, no face palsy, no dysarthria Results & Data Vital Signs (Past 12 Hours) Vital Signs Temp Pulse Pulse Resp BP BP BP 02/03/24 12:02 64 20 164/64 H 02/03/24 11:02 36.3 C L 64 17 153/90 H 02/03/24 09:06 160/82 H 02/03/24 08:57 36.5 C 65 18 193/95 H 02/03/24 08:28 02/03/24 08:01 135/70 02/03/24 08:00 65 21 02/03/24 07:19 131/73 02/03/24 07:19 72 18 02/03/24 07:01 63 19 02/03/24 07:01 147/85 H 02/03/24 06:48 61 16 02/03/24 06:00 55 L 16 120/76 02/03/24 05:00 55 L 17 131/77 02/03/24 04:51 55 L 02/03/24 04:50 55 L 14 02/03/24 03:00 59 L 15 131/77 Pulse Ox O2 Del Method 02/03/24 12:02 96 Room Air 02/03/24 11:02 93 Room Air 02/03/24 09:06 02/03/24 08:57 98 Room Air 02/03/24 08:28 Room Air 02/03/24 08:01 02/03/24 08:00 94 Room Air 02/03/24 07:19 02/03/24 07:19 02/03/24 07:01 94 02/03/24 07:01 02/03/24 06:48 95 Room Air 02/03/24 06:00 94 02/03/24 05:00 95 02/03/24 04:51 02/03/24 04:50 02/03/24 03:00 95 Room Air Laboratory Results Cardiac Enzymes 02/03/24 02/03/24 02/03/24 Range/Units 00:34 03:46 05:57 AST 20 (13-39) U/L Troponin I High Sens 3.9 6.9 4.0 (0-20) pg/ml Coagulation 02/03/24 Range/Units 05:57 APTT 26 (21-31) Seconds CBC 02/03/24 02/03/24 02/03/24 Range/Units 00:34 06:18 11:47 WBC 9.32 (4.8-10.8) K/ul RBC 4.42 L (4.70-6.10) M/uL Hgb 13.3 L 12.2 L 13.2 L (14.0-18.0) g/dl Hct 39.4 L 35.8 L 39.3 L (42.0-52.0) % Plt Count 230 (130-400) K/uL Neut # (Auto) 6.02 (1.40-6.50) K/uL Lymph # (Auto) 1.66 (1.20-3.40) K/uL [place] # (Auto) 1.04 H (0.11-0.59) K/uL Eos # (Auto) 0.49 (0.00-0.50) K/uL Baso # (Auto) 0.10 (0.00-0.20) K/uL Comprehensive Metabolic Panel 02/03/24 Range/Units 00:34 Sodium 140 (136-145) mmol/L Potassium 4.0 (3.5-5.1) mmol/L Chloride 106 (98-107) mmol/L Carbon Dioxide 27 (21-32) mmol/L BUN 34 H (6-23) mg/dl Creatinine 1.55 H (0.6-1.4) mg/dl Glucose 110 H (70-99(Fasting)) mg/dl Calcium 9.3 (8.6-10.3) mg/dl AST 20 (13-39) U/L ALT 21 (7-52) U/L Alkaline Phosphatase 46 (34-104) U/L Total Protein 6.9 (6.0-8.3) gm/dl Albumin 4.3 (3.4-5.0) gm/dl Intake and Output 02/03/24 02/03/24 02/03/24 06:59 14:59 22:59 Intake Total 100 / 100 Output Total 450 / 450 Balance 100 / 100 -450 / -450 Intake: IV 100 / 100 Acetaminophen 1,000 mg In 100 100 / 100 ml @ 400 mls/hr IV NOW STA Rx#: [id number] Output: Urine 450 / 450 Other: Weight 101.7 kg 99.4 kg Weight Measurement Method Chair Scale Built in [facility] Patient Weight 02/04/24 06:59 Weight 99.4 kg
--- NOTE | 2024-02-03 15:33 | Hospitalist Progress Note ---
Date of Service February 03, 2024 Assessment & Plan (1) Chest pain: Plan: Left upper extremity arm pain radiating to chest ? Musculoskeletal R/O ACS H/O CAD S/P stent H/O PVD --CXR:No acute chest disease. --Left UE USD:Normal left upper extremity duplex venous ultrasound. --Left Humerus X ray:No acute osseous injury. --Troponin negative x 2 -- EKG showed no signs of acute ischemia --Echo pending --Continue aspirin, Plavix, Crestor, metoprolol Appreciate cardiology input Hypertension Continue amlodipine, metoprolol Losartan, torsemide currently on hold Monitor Hyperlipidemia on statin CKD III Baseline Cr ~1.4 (noted on outpatient records Sep 2023) Cr 1.5 today Monitor renal function Avoid nephrotoxic agents as able Follows with [facility] nephrology as outpatient Prediabetes Last HbA1c 5.7 GERD Continue pantoprazole DVT Px: Heparin SQ CODE STATUS Full code Admission and Anticipated Discharge Date Admission Date: February 03, 2024 Subjective Patient is seen and examined at bedside States having left upper extremity pain, intermittently radiating to her chest Denies any dyspnea, dizziness, nausea, vomiting, abdominal pain Review of Systems Review of Systems: All systems reviewed & are unremarkable except as noted in Subjective Physical Exam Physical Exam: Physical Exam: Vitals signs as noted above General Appearance:Moderately built and nourished, no apparent distress Head: normocephalic, Atraumatic Eyes: normal inspection, EOMI Neck: supple, Trachea midline Respiratory/Chest: Normal breath sounds, CTA, No accessory muscle use Cardiovascular: S1, S2, No murmur Abdomen/GI:Soft, Non tender, Bowel sounds present Extremities/Musculoskeletal:normal inspection, no edema Neurologic/Psych:AAOX3, grossly no focal neurological deficits Skin: normal color, warm Results & Data Results & Data Vital Signs (Past 12 Hours) Vital Signs Temp Pulse Pulse Resp BP BP BP 02/03/24 12:02 64 20 164/64 H 02/03/24 11:02 36.3 C L 64 17 153/90 H 02/03/24 09:06 160/82 H 02/03/24 08:57 36.5 C 65 18 193/95 H 02/03/24 08:28 02/03/24 08:01 135/70 02/03/24 08:00 65 21 02/03/24 07:19 131/73 02/03/24 07:19 72 18 02/03/24 07:01 63 19 02/03/24 07:01 147/85 H 02/03/24 06:48 61 16 02/03/24 06:00 55 L 16 120/76 02/03/24 05:00 55 L 17 131/77 02/03/24 04:51 55 L 02/03/24 04:50 55 L 14 Pulse Ox O2 Del Method 02/03/24 12:02 96 Room Air 02/03/24 11:02 93 Room Air 02/03/24 09:06 02/03/24 08:57 98 Room Air 02/03/24 08:28 Room Air 02/03/24 08:01 02/03/24 08:00 94 Room Air 02/03/24 07:19 02/03/24 07:19 02/03/24 07:01 94 02/03/24 07:01 02/03/24 06:48 95 Room Air 02/03/24 06:00 94 02/03/24 05:00 95 02/03/24 04:51 02/03/24 04:50 Laboratory Results Short CBC 02/03/24 02/03/24 02/03/24 Range/Units 00:34 06:18 11:47 WBC 9.32 (4.8-10.8) K/ul Hgb 13.3 L 12.2 L 13.2 L (14.0-18.0) g/dl Hct 39.4 L 35.8 L 39.3 L (42.0-52.0) % Plt Count 230 (130-400) K/uL BMP 02/03/24 00:34 Sodium 140 Potassium 4.0 Chloride 106 Carbon Dioxide 27 BUN 34 H Creatinine 1.55 H Glucose 110 H Calcium 9.3 Liver Function 02/03/24 Range/Units 00:34 Total Bilirubin 0.3 (0.2-1.0) mg/dl AST 20 (13-39) U/L ALT 21 (7-52) U/L Alkaline Phosphatase 46 (34-104) U/L Albumin 4.3 (3.4-5.0) gm/dl Urine 02/03/24 Range/Units Unknown Urine Color Yellow Urine Appearance Clear (Clear) Urine pH 5.5 (4.5-7.5) Ur Specific [place] 1.020 (1.000-1.030) Urine Protein Negative (Negative) Urine Glucose (UA) Negative (Negative)
[2024-02-03] MEDS: CETIRIZINE HCL 10 MG TABLET PO SCH (20:22)
[2024-02-03] MEDS: ROSUVASTATIN CALCIUM 20 MG TAB PO SCH (20:23)
[2024-02-03] MEDS: LORazepam 0.5 MG TAB PO PRN (23:20)
--- OUTSIDE RECORDS SUMMARY | 2024-02-04 04:56 | External Medical Summary | Summary of Care ---
Author Name Unknown Organization [facility] [address] [facility] [address] Phone [phone] Care Team Providers Care Housekeeper Child Care Name Role Phone Sabino Izaguirre MD Primary Care Provide r Reason for Visit * Reason Comments Dosage Adjustment Via Phone (anticoag Cl inic) Hypertension Encounter Details Date Type Department Care Team (Late st Contact Info) Description 01/20/2024 2:30 PM EDT Telemedicine Pharmacy, [address] [place] [address] [place] [address] HTN, GOAL BELOW 140/90* Allergies Active Allergy Reactions Criticality Noted Date Comments Enalapril Maleate Cough 11/12/2014 documented as of this encounter (statuses as of 01/20/2024) Medications Medication Sig Dispensed Refills Start Date End Date Status FISH OIL 1000 MG PO CAPSIndications:Dysli pidemia, goal LDL below 160 one tablet twice daily 60 5 05/08/2008 Active ASPIRIN 81 MG PO TABSIndications:S/P angioplasty with stent 1 tablets daily 30 Tab 11 11/24/2012 Active Additional Information Patient taking differently: (No route reported), Reported on 09/25/2022 fluticasone (FLONASE) 50 MCG/ACT nasal spray Administer 2 Sprays into each nostril daily as needed for Allergies. 1 Inhaler 5 11/02/2016 Active Multiple Vitamins TABS Take by mouth daily. 0 Active Docusate Sodium 100 MG Oral Capsule (Colace)Indications:C onstipation, unspecified constipation type TAKE 1 CAPSULE BY MOUTH EVERY MORNING 90 Capsule 1 05/27/2022 Active ProAir HFA 108 (90 Base) MCG/ACT Inhalation Aerosol SolutionIndications:B ronchitis, complicated Inhale 2 Puffs by mouth every 4 hours as needed for Wheezing. 18 g 2 10/06/2022 Active amLODIPine Besylate 5 MG Oral Tablet (Norvasc)Indications: HTN, goal below 140/90 Take 1 Tablet by mouth 2 times a day. 180 Tablet 3 03/22/2023 Active Spironolactone 25 MG Oral Tablet (Aldactone) TAKE 1 TABLET BY MOUTH IN THE MORNING 90 Tablet 3 03/02/2023 4 Active Nitroglycerin 0.4 MG Sublingual Tablet Sublingual (Nitrostat)Indication s:Coronary atherosclerosis of [place] coronary artery,Stable angina (HCC) PLACE 1 TABLET UNDER THE TONGUE EVERY 5 MINUTES NEEDED FOR PAIN, CHEST 25 Tablet 5 03/01/2023 4 Active Losartan Potassium 100 MG Oral Tablet (Cozaar) TAKE ONE TABLET BY MOUTH EVERY DAY IN THE MORNING 90 Tablet 3 02/11/2023 4 Active Torsemide 5 MG Oral Tablet (Demadex)Indications: Chronic kidney disease, stage 3a (HCC) TAKE ONE TABLET BY MOUTH IN THE MORNING 90 Tablet 3 01/28/2023 4 Active Gabapentin 100 MG Oral Capsule (Neurontin)Indication s:Cervical radicular pain Take 1 Capsule by mouth in the morning and 1 Capsule at noon and 1 Capsule before bedtime. 270 Capsule 1 07/12/2023 Active Additional Information Patient taking differently:100 mg Oral TID(AM/NOON/HS),Patient taking only at night currently, Reported on 11/15/2023 hydroCHLOROthiazide 25 MG Oral Tablet (Hydrodiuril)Indicati ons:HTN, goal below 140/90 Take 1 Tablet by mouth in the morning. 90 Tablet 3 07/12/2023 Active Sildenafil Citrate 50 MG Oral Tablet TAKE ONE TABLET BY MOUTH 1 TO 4 HOURS BEFORE INTERCOURSE 4 Tablet 2 09/08/2023 Active Clopidogrel Bisulfate 75 MG Oral Tablet (pLAVix)Indications:S /P angioplasty with stent TAKE ONE TABLET BY MOUTH IN THE MORNING 100 Tablet 1 09/14/2023 Active Rosuvastatin Calcium 40 MG Oral Tablet (Crestor)Indications: Dyslipidemia, goal LDL below 70 TAKE ONE TABLET BY MOUTH IN THE MORNING 90 Tablet 1 10/16/2023 5 Active Famotidine 20 MG Oral Tablet (Pepcid)Indications:G astroesophageal reflux disease without esophagitis TAKE ONE TABLET BY MOUTH TWICE A DAY 180 Tablet 1 10/16/2023 5 Active Pantoprazole Sodium 40 MG Oral Tablet Delayed Release (Protonix) TAKE ONE TABLET BY MOUTH EVERY DAY 100 Tablet 0 11/04/2023 5 Active Metoprolol Succinate ER 25 MG Oral Tablet Extended Release 24 Hour (toPROL XL)Indications:Palpit ations,Stable angina (HCC) Take 1 Tablet by mouth at bedtime. 90 Tablet 3 11/04/2023 Active predniSONE 20 MG Oral Tablet (Deltasone)Indication s:Itching 2 tablets daily for 5 days then 1 tablet daily 15 Tablet 0 12/15/2023 Active Additional Information Patient not taking.Reported on 01/13/2024 Cetirizine HCl 10 MG Oral Tablet (ZyrTEC Allergy)Indications:I tching Take 1 Tablet by mouth every night at bedtime. 90 Tablet 2 12/21/2023 Active Triamcinolone Acetonide 0.1 % External Cream (Aristocort)Indicatio ns:Contact dermatitis, unspecified contact dermatitis type, unspecified trigger Apply topically to affected area 2 times a day 80 g 1 01/04/2024 Active documented as of this encounter (statuses as of 01/20/2024) Active Problems Problem Noted Date Diagnosed Date Chronic kidney disease, stage 3a 08/27/2022 DDD (degenerative disc disease), cervical 2021 Chronic right shoulder pain 02/23/2022 Chronic neck pain 02/23/2022 Hx of actinic keratosis 09/30/2020 Prediabetes 04/29/2020 Overview: Per Prediabetes protocol Ascending aorta dilation 11/16/2018 Hiatal hernia 10/13/2016 Stable angina 10/23/2013 Nodule of left lung 08/06/2010 Dyslipidemia, goal LDL below 70 08/29/2009 Overview: Per Lipid Taxonomy. HTN, GOAL BELOW 140/90 08/07/2009 Overview: Modified per HTN protocol #16. Impotence of organic origin 04/18/2008 Atherosclerosis of [place] co ronary artery of [place] heart with stable angina pectoris 01/01/2008 S/P angioplasty with stent 06/30/2006 Esophageal reflux 10/29/2005 ADVANCE DIRECTIVE INFORMATION 08/21/2005 Overview: No, Advance Directive brochure given to patient at prior appointment. documented as of this encounter (statuses as of 01/20/2024) Resolved Problems Problem Noted Date Diagnosed Date Resolved Date Cough due to RANDALL inhibitor 11/12/2014 0 01/30/2019 Hyperkalemia 11/12/2014 11/16/2018 Pre-operative cardiovascular examination 09/11/2014 11/12/2014 [employer] Other*[id number] 11/23/2012 10/27/2016 Overview: Study Title: Genomic Markers for Patients with Cardiovascular Disease Project # [id number] Research Development Director: Laine Cadena MD [phone] Abnormal stress echocardiogram 11/17/2012 01/30/2019 Impotence of organic origin 04/18/2008 11/16/2018 Chest pain 08/31/2006 01/30/2019 HIP & THIGH INJURY NOS 12/05/200401/30 Rosacea 02/23/2001 01/30/2019 Dyslipidemia, goal to be determined 08/29/2009 Overview: Per Lipid Taxonomy. HYPERTENSION NOS 08/08/2009 Overview: Modified per HTN protocol #16. documented as of this encounter (statuses as of 01/20/2024) Immunizations Name Administration Dates Next Due COVID-19 mRNA, LNP-s, No Pre serve, 2-Dose Series (Selphee) 01/01/2022,06/19/2021,11/25/2020,10/21 COVID-19, MRNA-LNP, 23-24, P F, 30 MCG/0.3 mL, 12 YRS AND ABOVE, IM (PFIZER-Comirnaty) 10/19/2023 H1N1 2009 Influenza, IM 09/24/2009 Pneumococcal Conjugate Vacc, 13 Valent (Prevnar) 01/30/2019 Pneumococcal Polysaccharide PPV23 (Pneumovax) 04/19/2020,12/20/2008 Season Influenza, Quad, PF, Adjuvanted, 65+ Yrs, IM (FLUAD) 07/09/2020 Seasonal Influenza Virus Vac cine, Unspecified Formulation 06/06/2021 Seasonal Influenza, PF, 6 M & above, IM , (FluLaval or Fluzone) 06/26/2019,06/28/2018,07/20/2017 07/20/2018 Seasonal Influenza, Quadriva lent Hd (Fluzone Hd) 05/28/2022 Seasonal Influenza, Quadriva lent, No Preserve, IM 07/08/2016 Seasonal Influenza, Quadriva lent, No Preserve, Mdck 06/28/2018 Seasonal Influenza, Split, I IV3, With Preserve, Inj 07/04/2015,07/13/2014,07/12/2013,06/20,06/23/2011,07/23/2010,07/05/20 09 Seasonal Influenza, Trivalen t, High Dose, No Preserve, IM 06/26/2019 TD, Preservative Free 11/16/2018 TDAP (age 11 and older)(Adacel) 06/12/2023,04/18 Varicella Zoster Vaccine (Adult) 01/11/2014 Zoster Vaccine Recombinant (Shingrix) 12/06/2019 ,10/05/2019 documented as of this encounter Social History Tobacco Use Types Packs/Day Years Used Date Smoking Tobacco: Never Smokeless Tobacco: Never Alcohol Use Standard Drinks/Week Comments Yes 5.8 (1 standard drink = 0.6 oz p ure alcohol) Once a month PHQ-2 Answer Date Recorded PHQ Adult Total Score 0 11/15/2023 Hunger Vital Sign Answer Date Recorded Within the past 12 months, y ou worried that your food would run out before you got the money to buy more. Never true 11/15/19 24 Within the past 12 months, t he food you bought just didn't last and you didn't have money to get more. 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 Blood Pressure Goal: 130/80 mmHg Type of Alert: n/a Current Hypertension Medications: Torsemide 5 mg daily Amlodipine 5 mg BID Metoprolol ER 25 mg daily HCTZ 25 mg daily Losartan 100 mg daily Spironolactone 25mg daily (ON HOLD) Previous antihypertensive use: n/a Experiencing symptoms related to elevated BP: No BP Readings from Last 3 Encounters: 01/13/24 107/59 12/15/23 138/70 11/15/23 104/70 Pulse Readings from Last 3 Encounters: 01/13/24 55 12/15/23 68 11/15/23 76 Recent Labs Units 10/19/23 1225 07/05/23 0000 07/01/23 1437 06/28/23 0000 06/11/23 1106 SODIUM - [facility] mmol/L 140 -- 140 -- 137 POTASSIUM - [facility] mmol/L 5.0 -- 4.3 -- 4.7 POTASSIUM-OUTSIDE LAB MMOL/L -- 4.0 -- < > -- CHLORIDE - [facility] mmol/L 104 -- 106 -- 103 CO2 - [facility] mmol/L 26 -- 21* -- 22 CREATININE - [facility] mg/dL 1.4* -- 1.3* -- 1.6* CREATININE-OUTSIDE LAB MG/DL -- 1.34* -- < > -- BUN - [facility] mg/dL 25* -- 29* -- 36* < > = values in this interval not displayed. ASSESSMENT & PLAN: 01/13/24 01/14/24 09:27 01/19/24 08:26 01/20/24 08:28 Systolic BP 121 mm/Hg [1] 138 mm/Hg [1] 140 mm/Hg [1] 136 mm/Hg [1] Diastolic BP 67 mm/Hg [1] 72 mm/Hg [1] 75 mm/Hg [1] 69 mm/Hg [1] Pulse 53 bpm [1] 52 bpm [1] 46 bpm (L) [1] 55 bpm [1] (L): Data is abnormally low [1] CH:VITAL_READING_TYPE=SPOT CH:PERIPHERAL_BRAND=IHEALTH Only x4 readings available since holding spironolactone. Encouraged to test regularly. Reviewed proper technique. Patient states rash has improved. Patient educated on the following: Reviewed proper home blood pressure measurement technique with patient including: -Use a validated upper arm blood pressure cuff (www.validatebp.org has a list; Omron and A&D are trusted brands) -Empty bladder and do not use tobacco, drink caffeinated beverages, or exercise for 30 minutes prior to checking -Rest quietly for 5 minutes prior to checking; do not talk while checking -Sit in a chair with support. Place both feet flat on the ground. Do not cross legs. Rest arm comfortably at heart level on table -Place cuff above bend of elbow; ensure cuff is appropriately sized -Take at least 2 readings 1 minute apart before morning medications and in the evening before supper; record the average of the 2 readings on a log or in a journal MEDICATION CHANGES: none FOLLOW UP: Return to clinic upon alerts Jazz Gibbons [facility] Clinical Pharmacist - [facility] 01/20/2024, 2:38 PM documented in this encounter Plan of Treatment Upcoming Encounters Date Type Department Care Team (Latest Contact Info) Description 01/28/2024 8:30 AM EDT Imaging Cardiac Studies, [facility] [address] [facility] [place] [address] 02/16/2024 10:30 AM EDT Office Visit Cardiology, [facility] [address] [facility] [place] [address] Pennie Naranjo CRNP [address] [facility] [place] [address] 02/21/2024 2:40 PM EDT Office Visit Dermatology [address] [place] [address] Kassi Pool PA-C [address] [place] [address] [place] [address] 02/28/2024 1:45 PM EDT Hospital Encounter ENDO [facility], Endoscopy Room [facility] [address] [place] [phone] Belkis Arambula, DO [address] [place] [address] 02/28/2024 1:45 PM EDT - 02/28/2024 2:15 PM EDT Surgery ENDO [facility], Endoscopy Room [facility] [address] [place] [phone] Belkis Arambula, DO [address] [place] [address] COLONOSCOPY FLEXIBLE PROXIMAL DIAGNOSTIC 04/04/2024 11:40 AM EDT Office Visit Otolaryngology [facility] [address] [place] [address] Renata Garcia PA-C [address] [place] [address] 05/17/2024 3:20 PM EDT Office Visit Family Medicine [address] [place] [phone] Sabino Izaguirre MD [address] [place] [address] [place] [address] 11/17/2024 9:00 AM EST Nurse Only Ancillary [address] [place] [address] [place], Nurse Annual [address] [place] [address] Scheduled Procedures Name Priority Associated Diagnoses Date/Ti me COLONOSCOPY FLEXIBLE PROXIMAL DIAGNOSTIC History of colon polyps 02/28/2024 1:45 PM EDT Health Maintenance Due Date Last Done Comments Cologuard 1998 Fecal Occult Blood Test 1998 Sigmoidoscopy 1998 Colonoscopy 06/05/2023 06/05/2020, 05/21, 02/08/2017, Additional history exists Colorectal Cancer Screening 06/05/2023 Albumin/Creatinine Ratio 10/22/2023 10/22/2022, 09/0 04/2022 GFR 04/18/2024 10/19/2023, 06/20, 07/01/2023, Additional history exists CKD PHOS USE SMARTSET 84712 06/11/2024 06/11/2023 HbA1c 06/11/2024 06/11/2023, 09/0 04/2022, 04/02/2021, Additional history exists CKD HGB USE SMARTSET 13282 10/19/202410/19, 07/05/2023, 06/28/2023, Additional history exists Depression Screening 11/15/2024 11/15/2023 DTaP,Tdap,and Td Vaccines (4 - Td or Tdap) 06/12/2033 06/12/2023, 11/16/2018, 04/18/2008 Zoster Vaccines Completed 12/06/2019, 09/20, 01/11/2014 Pneumococcal Vaccine: 65+ Years Completed 04/19/2020, 01/30/2019, 12/20/2008 Influenza Vaccine (FLU shot) Completed 10/2022, 05/28/2022, 05/28/2022, Additional history exists COVID-19 Vaccine Completed 10/19/2023, , 01/01/2022, Additional history exists GARDASIL-HPV IMMUNIZATION SERIES Aged Out No longer eligible based on patient's age to complete this topic Hepatitis B Aged Out No longer eligi ble based on patient's age to complete this topic MENINGOCOCCAL (MENACTRA/MENVEO) Aged Out No longer eligible based on patient's age to complete this topic documented as of this encounter Medical Devices Implanted Type Area Bottom Ironer Device Identifier Shelf Expiration Date Model / Serial / Lot Mesh Preshaped Large - [id number] Implanted:Qty : 1 on 12/31/2014 by Jj Weston MD at OR [facility] Right: Groin CR BARD : DAVOL 09/19/2018 [id number] / / [id number] Suture Banner Dbl Load 4.75mm - [id number] Implanted:Qty : 1 on 03/15/2020 by Kar Berry DO at OR [facility] Right: Shoulder [employer] 12/18/2021 [id number]-2324BCT- 2 / / [id number] documented as of this encounter Visit Diagnoses Diagnosis HTN, GOAL BELOW 140/90- Primary Unspecified essential hypertension History of colon polyps Personal history of colonic polyps documented in this encounter Advance Directives Latest Code Status on File Code Status Date Activated Date Inactivated Comments Full Code 11/23/2012 8:27 PM 11/24/2012 8:07 PM This or emilia reflects the patients wishes and were consensually agreed upon. Question Answer Comments Discussion of Advance Directives occurred with: Patient/Family Care Teams Housekeeper Child Care Relationship Specialty Start Date End Date Sabino Izaguirre MD [address] [place] [address] [place] [address] PCP - General Family Medicine 01/21/21 documented as of this encounter
--- OUTSIDE RECORDS SUMMARY | 2024-02-04 04:56 | External Medical Summary | Summary of Care ---
Author Name Unknown Organization [facility] Address [address] [place] [address] Phone [phone] Care Team Providers Care Editor News Name Role Phone Sabino Izaguirre MD Primary Care Provide r Reason for Visit * Reason Onset Date Comments Home Monitoring Telephone 01/04/2024 Encounter Details Date Type Department Care Team (Late st Contact Info) Description 01/04/2024 Telephone Care Coordination [address], [place] [phone] Pamela Angel LPN Home Monitoring Telephone Allergies Active Allergy Reactions Criticality Noted Date Comments Enalapril Maleate Cough 11/12/2014 documented as of this encounter (statuses as of 01/28/2024) Medications Medication Sig Dispensed Refills Start Date [...] Sublingual Tablet Sublingual (Nitrostat)Indication s:Coronary atherosclerosis of [place] coronary artery,Stable angina (HCC) PLACE 1 TABLET [...] as of this encounter (statuses as of 01/28/2024) Active Problems Problem Noted Date Diagnosed Date [...] Impotence of organic origin 04/18/2008 Atherosclerosis of [place] co ronary artery of [place] heart with stable angina pectoris 01/01/2008 S/P angioplasty with stent 06/30/2006 Esophageal reflux 10/29/2005 ADVANCE DIRECTIVE INFORMATION 08/21/2005 Overview: No, Advance Directive brochure given to patient at prior appointment. documented as of this encounter (statuses as of 01/28/2024) Resolved Problems Problem Noted Date Diagnosed Date Resolved Date Cough due to RANDALL inhibitor 11/12/2014 0 01/30/2019 Hyperkalemia 11/12/2014 11/16/2018 Pre-operative cardiovascular examination 09/11/2014 11/12/2014 [employer] Other*[id number] 11/23/2012 10/27/2016 Overview: Study Title: Genomic Markers for Patients with Cardiovascular Disease Project # [id number] Chancery Clerk: Laine Cadena MD [phone] Abnormal stress echocardiogram 11/17/2012 01/30/2019 Impotence of organic origin 04/18/2008 11/16/2018 Chest pain 08/31/2006 01/30/2019 HIP & THIGH INJURY NOS 12/05/200401/30 Rosacea 02/23/2001 01/30/2019 Dyslipidemia, goal to be determined 08/29/2009 Overview: Per Lipid Taxonomy. HYPERTENSION NOS 08/08/2009 Overview: Modified per HTN protocol #16. documented as of this encounter (statuses as of 01/28/2024) Immunizations Name Administration Dates Next Due COVID-19 mRNA, LNP-s, No Pre serve, 2-Dose Series ([employer]) 01/01/2022,06/19/2021,11/25/2020,10/21 COVID-19, MRNA-LNP, 23-24, P F, 30 [...] on file documented as of this encounter Miscellaneous Notes * Telephone Encounter - Pamela Angel LPN - 01/28/2024 2:12 PM EDT Please see goal target change per Dr Mendoza. Thank you, Pamela * Telephone Encounter - Kriss Mendoza MD - 01/07/2024 4:27 PM EDT Noted and appreciated; recommend lower target <130/80 and reevaluate * Telephone Encounter - Pamela Angel LPN - 01/04/2024 9:21 AM EDT Enzo Shaw [phone] Dr Mendoza, Please see below note regarding patients next steps in the [facility] HTN program. Thanks! Pamela Shaw is currently enrolled in the [facility] HTN Program and has not alerted for out of bound readings for > 1 month. Current alarms are set for patient at the following levels: Average BP over 7 days > 140/90 Singular hypertension reading > Reading 180/120 Singular hypotensive reading > Reading 90/50 Per program criteria, please let us know your recommendation for continued monitoring. Options include the following: Patient should remain in current program with no changes for an additional 3 months prior to next evaluation. Patient should remain in current program however goal will be stepped down / adjusted to example: average BP of 130/80. Patient is stable and should be transferred to [facility] Chronic Disease Maintenance Program for step-down. If patient is recommended for, and transfers to, the maintenance program the following conditions will apply: [facility] Navigators will no longer monitor readings from the patient (all readings taken will be available in EPIC synopsis flowsheets) Patient will agree to continue to submit readings at a minimum of 1 x per week. [facility] nurses will outreach to the patient at 3 months post transition for check- in, and again at 6 months. If stable after 6 months will consider graduation. Patient will be made aware that they are responsible for contacting the clinic with any concerning readings, symptoms, or questions Please respond to this message with your recommendation. Thank you, [facility] Monitoring Center Staff Pamela Angel LPN documented in this encounter Plan of Treatment Upcoming Encounters Date Type Department Care Team (Latest Contact Info) Description 02/16/2024 10:30 AM EDT Office Visit Cardiology, [facility] [address] [place] [address] Pennie Naranjo CRNP [address] [place] [address] 02/21/2024 2:40 PM EDT Office Visit Dermatology [address] [place] [address] Kassi Pool PA-C [address] [place] [address] [place] [address] 02/28/2024 1:45 PM EDT Hospital Encounter ENDO [facility], Endoscopy Room [facility] [address] [place] [phone] Belkis Arambula, [address] [place] [address] 02/28/2024 1:45 PM EDT - 02/28/2024 2:15 PM EDT Surgery ENDO [facility], Endoscopy Room [facility] [address] [place] [phone] Belkis Arambula, DO [address] [place] [address] COLONOSCOPY FLEXIBLE PROXIMAL DIAGNOSTIC 04/04/2024 11:40 AM EDT Office Visit Otolaryngology [facility] [address] [place] [address] Renata Garcia PA-C [address] [place] [address] 05/17/2024 3:20 PM EDT Office Visit Family Medicine [address] [place] [phone] Sabino Izaguirre MD [address] [place] [address] [place] [address] 11/17/2024 9:00 AM EST Nurse Only Ancillary [address] [place] [address] [place], Nurse Annual [address] [place] [address] Scheduled Procedures Name Priority Associated Diagnoses Date/Ti [...] Additional history exists CKD PHOS USE SMARTSET 90620 06/11/2024 06/11/2023 HbA1c 06/11/2024 06/11/2023, 09/0 04/2022, 04/02/2021, Additional history exists CKD HGB USE SMARTSET 80387 10/19/202410/19, 07/05/2023, 06/28/2023, Additional history exists Depression [...] this encounter Medical Devices Implanted Type Area Clinic Supervisor Device Identifier Shelf Expiration Date Model / Serial / Lot Mesh Preshaped Large - [id number] Implanted:Qty : 1 on 12/31/2014 by Jj Weston MD at OR [facility] Right: Groin CR BARD : DAVOL 09/19/2018 [id number] / / [id number] Suture [place] Dbl Load 4.75mm - [id number] Implanted:Qty : 1 on 03/15/2020 by Kar Berry DO at OR [facility] Right: Shoulder [employer] 12/18/2021 AR-2324BCT- 2 / / [id number] documented as of this encounter Advance Directives Latest Code Status on File Code Status Date Activated Date Inactivated Comments Full Code 11/23/2012 8:27 PM 11/24/2012 8:07 PM This or emilia reflects the patients wishes and were consensually agreed upon. Question Answer Comments Discussion of Advance Directives occurred with: Patient/Family Care Teams Editor News Relationship Specialty Start Date End Date Sabino Izaguirre MD [address] [place] [address] [place] [phone] PCP - General Family Medicine 01/21/21 documented as of this encounter
--- OUTSIDE RECORDS SUMMARY | 2024-02-04 04:56 | External Medical Summary | Summary of Care ---
Author Name Unknown Organization [facility] Address [address] [place] [address] Phone [phone] Care Team Providers Care Preprint Analyst Name Role Phone Saibno Izaguirre MD Primary Care Provide r Reason for Visit * Reason Onset Date Comments Home Monitoring Telephone 01/04/2024 Encounter Details Date Type Department Care Team (Late st Contact Info) Description 01/04/2024 Telephone Care Coordination [address] [place], [place] [phone] Pamela Angel LPN Home Monitoring Telephone Allergies [...] Sublingual Tablet Sublingual (Nitrostat)Indication s:Coronary atherosclerosis of [place] coronary artery,Stable angina (HCC) PLACE 1 TABLET [...] Impotence of organic origin 04/18/2008 Atherosclerosis of [place] co ronary artery of [place] heart with stable angina pectoris 01/01/2008 S/P [...] cardiovascular examination 09/11/2014 11/12/2014 [employer] Other*[id number] 11/23/2012 10/27/2016 Overview: Study Title: Genomic Markers for Patients with Cardiovascular Disease Project # [id number] Synthetic Staple Extruder: Laine Cadena MD [phone] Abnormal stress echocardiogram 11/17/2012 01/30/2019 Impotence of [...] mRNA, LNP-s, No Pre serve, 2-Dose Series ([employer]) 01/01/2022,06/19/2021,11/25/2020,10/21 COVID-19, MRNA-LNP, 23-24, P F, 30 [...] - 01/04/2024 9:21 AM EDT Enzo Shaw [id number] Dr Mendoza, Please see below note regarding patients next steps in the [facility] HTN program. Thanks! Pamela Shaw is currently enrolled in the [facility] HTN Program and has not [...] is stable and should be transferred to [facility] Chronic Disease Maintenance Program for step-down. If patient is recommended for, and transfers to, the maintenance program the following conditions will apply: [facility] Navigators will no longer monitor readings from the patient (all readings taken will be available in EPIC synopsis flowsheets) Patient will agree to continue to submit readings at a minimum of 1 x per week. [facility] nurses will outreach to the patient at 3 months post transition for check- in, and again at 6 months. If stable after 6 months will consider graduation. Patient will be made aware that they are responsible for contacting the clinic with any concerning readings, symptoms, or questions Please respond to this message with your recommendation. Thank you, [facility] Monitoring Center Staff Pamela Angel LPN documented in this encounter Plan of Treatment Upcoming Encounters Date Type Department Care Team (Latest Contact Info) Description 02/16/2024 10:30 AM EDT Office Visit Cardiology, [facility] [address] [place] [address] Pennie Naranjo CRNP [address] [place] [address] 02/21/2024 2:40 PM EDT Office Visit Dermatology [address] [place] [address] Kassi Pool PA-C [address] [place] [address] [place] [address] 02/28/2024 1:45 PM EDT Hospital Encounter ENDO [facility], Endoscopy Room [facility] [address] [place] [phone] Belkis Arambula, [address] [place] [address] 02/28/2024 1:45 PM EDT - 02/28/2024 2:15 PM EDT Surgery ENDO [facility], Endoscopy Room [facility] [address] [place] [phone] Belkis Arambula, DO [address] [place] [address] COLONOSCOPY FLEXIBLE PROXIMAL DIAGNOSTIC 04/04/2024 11:40 AM EDT Office Visit Otolaryngology [facility] [address] [place] [address] Renata Garcia PA-C [address] [place] [address] 05/17/2024 3:20 PM EDT Office Visit Family Medicine [address] [place] [phone] Sabino Izaguirre MD [address] [place] [address] [place] [address] 11/17/2024 9:00 AM EST Nurse Only Ancillary [address] [place] [address] [place], Nurse Annual [address] [place] [address] Scheduled Procedures Name Priority Associated Diagnoses Date/Ti [...] Additional history exists CKD PHOS USE SMARTSET 72616 06/11/2024 06/11/2023 HbA1c 06/11/2024 06/11/2023, 09/0 04/2022, 04/02/2021, Additional history exists CKD HGB USE SMARTSET 58416 10/19/202410/19, 07/05/2023, 06/28/2023, Additional history exists Depression [...] this encounter Medical Devices Implanted Type Area Script Developer Device Identifier Shelf Expiration Date Model / Serial / Lot Mesh Preshaped Large - [id number] Implanted:Qty : 1 on 12/31/2014 by Jj Weston MD at OR [facility] Right: Groin CR BARD : DAVOL 09/19/2018 [id number] / / [id number] Suture [place] Dbl Load 4.75mm - [id number] Implanted:Qty : 1 on 03/15/2020 by Kar Berry DO at OR [facility] Right: Shoulder [employer] 12/18/2021 [id number]- [id number] / / [id number] documented as of this encounter Advance Directives Latest Code Status on File Code Status Date Activated Date Inactivated Comments Full Code 11/23/2012 8:27 PM 11/24/2012 8:07 PM This or emilia reflects the patients wishes and were consensually agreed upon. Question Answer Comments Discussion of Advance Directives occurred with: Patient/Family Care Teams Preprint Analyst Relationship Specialty Start Date End Date Sabino Izaguirre MD [address] [place] [address] [place] [phone] PCP - General Family Medicine 01/21/21 documented as of this encounter
--- OUTSIDE RECORDS SUMMARY | 2024-02-04 04:57 | External Medical Summary | Summary of Care ---
Author Name Unknown Organization [facility] Address [address] [place] [address] Phone [phone] Care Team Providers Care Audiology Technician Name Role Phone Sabino Izaguirre MD Primary Care Provide r Reason for Visit * Reason Onset Date Comments Home Monitoring Telephone 01/04/2024 Encounter Details Date Type Department Care Team (Late st Contact Info) Description 01/04/2024 Telephone Care Coordination [address] [place], [place] [phone] Pamela Angel LPN Home Monitoring Telephone Allergies Active Allergy Reactions Criticality Noted Date Comments Enalapril Maleate Cough 11/12/2014 documented as of this encounter (statuses as of 01/07/2024) Medications Medication Sig Dispensed Refills Start Date [...] Sublingual Tablet Sublingual (Nitrostat)Indication s:Coronary atherosclerosis of [place] coronary artery,Stable angina (HCC) PLACE 1 TABLET [...] tablet daily 15 Tablet 0 12/15/2023 Active Cetirizine HCl 10 MG Oral Tablet (ZyrTEC Allergy)Indications:I tching Take 1 Tablet by mouth every night at bedtime. 90 Tablet 2 12/21/2023 Active Triamcinolone Acetonide 0.1 % External Cream (Aristocort)Indicatio ns:Contact dermatitis, unspecified contact dermatitis type, unspecified trigger Apply topically to affected area 2 times a day 80 g 1 01/04/2024 Active documented as of this encounter (statuses as of 01/07/2024) Active Problems Problem Noted Date Diagnosed Date [...] Impotence of organic origin 04/18/2008 Atherosclerosis of [place] co ronary artery of [place] heart with stable angina pectoris 01/01/2008 S/P angioplasty with stent 06/30/2006 Esophageal reflux 10/29/2005 ADVANCE DIRECTIVE INFORMATION 08/21/2005 Overview: No, Advance Directive brochure given to patient at prior appointment. documented as of this encounter (statuses as of 01/07/2024) Resolved Problems Problem Noted Date Diagnosed Date Resolved Date Cough due to RANDALL inhibitor 11/12/2014 0 01/30/2019 Hyperkalemia 11/12/2014 11/16/2018 Pre-operative cardiovascular examination 09/11/2014 11/12/2014 [employer] Other*[id number] 11/23/2012 10/27/2016 Overview: Study Title: Genomic Markers for Patients with Cardiovascular Disease Project # [id number] Barrel Inspector Tight: Laine Cadena MD [phone] Abnormal stress echocardiogram 11/17/2012 01/30/2019 Impotence of organic origin 04/18/2008 11/16/2018 Chest pain 08/31/2006 01/30/2019 HIP & THIGH INJURY NOS 12/05/200401/30 Rosacea 02/23/2001 01/30/2019 Dyslipidemia, goal to be determined 08/29/2009 Overview: Per Lipid Taxonomy. HYPERTENSION NOS 08/08/2009 Overview: Modified per HTN protocol #16. documented as of this encounter (statuses as of 01/07/2024) Immunizations Name Administration Dates Next Due COVID-19 mRNA, LNP-s, No Pre serve, 2-Dose Series ([employer]) 01/01/2022,06/19/2021,11/25/2020,10/21 COVID-19, MRNA-LNP, 23-24, P F, 30 [...] encounter Miscellaneous Notes * Telephone Encounter - Kriss Mendoza MD - 01/07/2024 4:27 PM EDT Noted and appreciated; recommend lower target <130/80 and reevaluate * Telephone Encounter - Pamela Angel LPN - 01/04/2024 9:21 AM EDT Enzo Shaw [id number] Dr Mendoza, Please see below note regarding patients next steps in the [facility] HTN program. Thanks! Pamela Shaw is currently enrolled in the [facility] HTN Program and has not alerted for [...] is stable and should be transferred to [facility] Chronic Disease Maintenance Program for step-down. If patient is recommended for, and transfers to, the maintenance program the following conditions will apply: [facility] Navigators will no longer monitor readings from the patient (all readings taken will be available in EPIC synopsis flowsheets) Patient will agree to continue to submit readings at a minimum of 1 x per week. [facility] nurses will outreach to the patient at 3 months post transition for check- in, and again at 6 months. If stable after 6 months will consider graduation. Patient will be made aware that they are responsible for contacting the clinic with any concerning readings, symptoms, or questions Please respond to this message with your recommendation. Thank you, [facility] Monitoring Center Staff Pamela Angel LPN documented in this encounter Plan of Treatment Upcoming Encounters Date Type Department Care Team (Latest Contact Info) Description 01/10/2024 11:00 AM EDT Telemedicine Interventional Pain Center, [facility] [address] [place] [address] Lisandra Blankenship PA-C [address] [place] [address] 01/13/2024 10:30 AM EDT Office Visit Nephrology, [facility] [address] [place] [address] ZemaLois hermosillo PA-C [address] [place] [address] 01/28/2024 8:30 AM EDT Imaging Cardiac Studies, [facility] [address] [place] [address] 02/16/2024 10:30 AM EDT Office Visit Cardiology, [facility] [address] [place], [place] [address] Pennie Naranjo CRNP [address] [place] [address] 02/21/2024 2:40 PM EDT Office Visit Dermatology [address] [place] [address] Kassi Pool PA-C [address] [place] [address] [place] [address] 02/28/2024 1:45 PM EDT Hospital Encounter ENDO [facility], Endoscopy Room [facility] [address] [place] [phone] Belkis Arambula DO [address] [place] [address] 02/28/2024 1:45 PM EDT - 02/28/2024 2:15 PM EDT Surgery ENDO [facility], Endoscopy Room [facility] [address] [place] [phone] Belkis Arambula DO [address] [place] [address] COLONOSCOPY FLEXIBLE PROXIMAL DIAGNOSTIC 04/04/2024 11:40 AM EDT Office Visit Otolaryngology [facility] [address] [place] [address] Renata Garcia PA-C [address] [place] [address] 05/17/2024 3:20 PM EDT Office Visit Family Medicine [address] [place] [phone] Sabino Izaguirre MD [address] [place] [address] [place] [address] 11/17/2024 9:00 AM EST Nurse Only Ancillary [address] [place] [address] [place], Nurse Annual [address] [place] [address] Scheduled Procedures Name Priority Associated Diagnoses Date/Ti me COLONOSCOPY FLEXIBLE PROXIMAL DIAGNOSTIC History of colon polyps 02/28/2024 1:45 PM EDT Health Maintenance Due Date Last Done Comments COLONOSCOPY-EVERY 3 YRS AGES 18-100 06/05/2023 06/05/2020, 06/05/2020, 02/08/2017, Additional history exists Albumin/Creatinine Ratio 10/22/2023 10/22/2022, 0 04/2022 GFR 04/18/2024 10/19/2023, 06/20, 07/01/2023, Additional history exists CKD PHOS USE SMARTSET 82279 06/11/2024 06/11/2023 HbA1c 06/11/2024 06/11/2023, 04/2022, 04/02/2021, Additional history exists CKD HGB USE SMARTSET 59622 10/19/202410/19, 07/05/2023, 06/28/2023, Additional history exists Depression [...] this encounter Medical Devices Implanted Type Area Spring Forger Device Identifier Shelf Expiration Date Model / Serial / Lot Mesh Preshaped Large - [id number] Implanted:Qty : 1 on 12/31/2014 by Jj Weston MD at OR [facility] Right: Groin CR BARD : DAVOL 09/19/2018 [id number] / / [id number] Suture [place] Dbl Load 4.75mm - [id number] Implanted:Qty : 1 on 03/15/2020 by Kar Berry DO at OR [facility] Right: Shoulder [employer] 12/18/2021 AR-2324BCT- 2 / / [id number] documented as of this encounter Advance Directives Latest Code Status on File Code Status Date Activated Date Inactivated Comments Full Code 11/23/2012 8:27 PM 11/24/2012 8:07 PM This or emilia reflects the patients wishes and were consensually agreed upon. Question Answer Comments Discussion of Advance Directives occurred with: Patient/Family Care Teams Audiology Technician Relationship Specialty Start Date End Date Sabino Izaguirre MD [address] [place] [address] [place] [address] PCP - General Family Medicine 01/21/21 documented as of this encounter
--- OUTSIDE RECORDS SUMMARY | 2024-02-04 04:57 | External Medical Summary | Summary of Care ---
Author Name Unknown Organization [facility] Address [address] [place] [address] Phone [phone] Care Team Providers Care Unemployment Insurance Hearing Officer Name Role Phone Sabino Izaguirre MD Primary Care Provide r Encounter Details Date Type Department Care Team (Late st Contact Info) Description 01/17/2024 Telephone Pharmacy, [address] [place] [phone] [facility] [place] [address] Allergies Active Allergy Reactions Criticality Noted Date Comments Enalapril Maleate Cough 11/12/2014 documented as of this encounter (statuses as of 01/17/2024) Medications Medication Sig Dispensed Refills Start Date [...] Sublingual Tablet Sublingual (Nitrostat)Indication s:Coronary atherosclerosis of [place] coronary artery,Stable angina (HCC) PLACE 1 TABLET [...] as of this encounter (statuses as of 01/17/2024) Active Problems Problem Noted Date Diagnosed Date [...] Impotence of organic origin 04/18/2008 Atherosclerosis of [place] co ronary artery of [place] heart with stable angina pectoris 01/01/2008 S/P angioplasty with stent 06/30/2006 Esophageal reflux 10/29/2005 ADVANCE DIRECTIVE INFORMATION 08/21/2005 Overview: No, Advance Directive brochure given to patient at prior appointment. documented as of this encounter (statuses as of 01/17/2024) Resolved Problems Problem Noted Date Diagnosed Date Resolved Date Cough due to RANDALL inhibitor 11/12/2014 0 01/30/2019 Hyperkalemia 11/12/2014 11/16/2018 Pre-operative cardiovascular examination 09/11/2014 11/12/2014 [employer] Other*[id number] 11/23/2012 10/27/2016 Overview: Study Title: Genomic Markers for Patients with Cardiovascular Disease Project # [id number] Med Aide: Laine Cadena MD [phone] Abnormal stress echocardiogram 11/17/2012 01/30/2019 Impotence of organic origin 04/18/2008 11/16/2018 Chest pain 08/31/2006 01/30/2019 HIP & THIGH INJURY NOS 12/05/200401/30 Rosacea 02/23/2001 01/30/2019 Dyslipidemia, goal to be determined 08/29/2009 Overview: Per Lipid Taxonomy. HYPERTENSION NOS 08/08/2009 Overview: Modified per HTN protocol #16. documented as of this encounter (statuses as of 01/17/2024) Immunizations Name Administration Dates Next Due COVID-19 mRNA, LNP-s, No Pre serve, 2-Dose Series ([employer]) 01/01/2022,06/19/2021,11/25/2020,10/21 COVID-19, MRNA-LNP, 23-24, P F, 30 [...] encounter Miscellaneous Notes * Telephone Encounter - Jazz Gibbons RPh - 01/17/2024 11:23 AM EDT Received message from Lois Mcclendon PA-C regarding OV on 01/12. Spironolactone held d/t possible SE of rash and pt with lower pressures and bouts of dizziness. Call placed to check in with patient and follow up on status on 01/19. Jazz Gibbons RPh, PharmD Clinical Pharmacist - Quarry Supervisor [facility] 01/17/2024, 11:26 AM [phone] documented in this encounter Plan of Treatment Upcoming Encounters Date Type Department Care Team (Latest Contact Info) Description 01/20/2024 2:30 PM EDT Telemedicine Pharmacy, [address] [place] [address] [place] [address] 01/28/2024 8:30 AM EDT Imaging Cardiac Studies, [facility] [address] [facility] [place] [address] 02/16/2024 10:30 AM EDT Office Visit Cardiology, [facility] 132 [facility] [place] [address] Pennie Naranjo CRNP 132 [facility] [place] [address] 02/21/2024 2:40 PM EDT Office Visit Dermatology [address] [place] [address] Kassi Pool PA-C [address] [place] [address] [place] [address] 02/28/2024 1:45 PM EDT Hospital Encounter ENDO OSS, Endoscopy Room [facility] [address] [place] [phone] Belkis Arambula, DO [address] [place] [address] 02/28/2024 1:45 PM EDT - 02/28/2024 2:15 PM EDT Surgery ENDO [facility], Endoscopy Room [facility] [address] [place] [phone] Belkis Arambula, DO [address] [place] [address] COLONOSCOPY FLEXIBLE PROXIMAL DIAGNOSTIC 04/04/2024 11:40 AM EDT Office Visit Otolaryngology [facility] [address] [place] [address] Renata Garcia PA-C [address] [place] [address] 05/17/2024 3:20 PM EDT Office Visit Family Medicine [address] [place] [phone] Sabino Izaguirre MD [address] [place] [address] [place] [address] 11/17/2024 9:00 AM EST Nurse Only Ancillary [address] [place] [address] [place], Nurse Annual [address] [place] [address] Scheduled Procedures Name Priority Associated Diagnoses Date/Ti me COLONOSCOPY FLEXIBLE PROXIMAL DIAGNOSTIC History of colon polyps 02/28/2024 1:45 PM EDT Health Maintenance Due Date Last Done Comments Cologuard 1998 Fecal Occult Blood Test 1998 Sigmoidoscopy 1998 Colonoscopy 06/05/2023 06/05/2020, 05/21, 02/08/2017, Additional history exists Colorectal Cancer Screening 06/05/2023 Albumin/Creatinine Ratio 10/22/2023 10/22/2022, 0 04/2022 GFR 04/18/2024 10/19/2023, 06/20, 07/01/2023, Additional history exists CKD PHOS USE SMARTSET 28861 06/11/2024 06/11/2023 HbA1c 06/11/2024 06/11/2023, 0 04/2022, 04/02/2021, Additional history exists CKD HGB USE SMARTSET 04844 10/19/202410/19, 07/05/2023, 06/28/2023, Additional history exists Depression [...] this encounter Medical Devices Implanted Type Area Metal Sash Setter Device Identifier Shelf Expiration Date Model / Serial / Lot Mesh Preshaped Large - [id number] Implanted:Qty : 1 on 12/31/2014 by Jj Weston MD at OR [facility] Right: Groin CR BARD : DAVOL 09/19/2018 [id number] / / [id number] Suture [place] Dbl Load 4.75mm - [id number] Implanted:Qty : 1 on 03/15/2020 by Kar Berry DO at OR [facility] Right: Shoulder [employer] 12/18/2021 AR-2324BCT- 2 / / [id number] documented as of this encounter Visit Diagnoses [...] Advance Directives occurred with: Patient/Family Care Teams Unemployment Insurance Hearing Officer Relationship Specialty Start Date End Date Sabino Izaguirre MD [address] [place] [address] [place] [address] PCP - General Family Medicine 01/21/21 documented as of this encounter
--- OUTSIDE RECORDS SUMMARY | 2024-02-04 04:57 | External Medical Summary | Summary of Care ---
Author Name Unknown Organization [facility] Address [address] [place] [address] Phone [phone] Care Team Providers Care Manager Field Service Name Role Phone Sabino Izaguirre MD Primary Care Provide r Reason for Visit * Reason Comments Chronic Kidney Disease (CKD) Encounter Details Date Type Department Care Team (Late st Contact Info) Description 01/13/2024 10:30 AM EDT Office Visit Nephrology, Abilio Barber [address] [place] [address] ZemaLois hermosillo PA-C [address] [facility] [place] [address] Stage 3a chronic kidney disease (HCC)*; Hypertension goal BP (blood pressure) < 130/80; Nephrolithiasis; Rash Allergies Active Allergy Reactions Criticality Noted Date [...] Sublingual Tablet Sublingual (Nitrostat)Indication s:Coronary atherosclerosis of [place] coronary artery,Stable angina (HCC) PLACE 1 TABLET [...] Impotence of organic origin 04/18/2008 Atherosclerosis of [place] co ronary artery of [place] heart with stable angina pectoris 01/01/2008 S/P [...] cardiovascular examination 09/11/2014 11/12/2014 [employer] Other*[id number] 11/23/2012 10/27/2016 Overview: Study Title: Genomic Markers for Patients with Cardiovascular Disease Project # [id number] Telecom Engineer: Laine Cadena MD [phone] Abnormal stress echocardiogram 11/17/2012 01/30/2019 Impotence of [...] mRNA, LNP-s, No Pre serve, 2-Dose Series ([employer]) 01/01/2022,06/19/2021,11/25/2020,10/21 COVID-19, MRNA-LNP, 23-24, P F, 30 [...] on file documented as of this encounter Last Filed Vital Signs Vital Sign Reading Time Taken Comments Blood Pressure 107/59 01/13/2024 10:39 AM EDT Pulse 55 01/13/2024 10:39 AM EDT Temperature 36.6 C (97.9 F) 01/13/2024 10:39 AM E DT Respiratory Rate 18 01/13/2024 10:39 AM EDT Oxygen Saturation 96% 01/13/2024 10:39 AM EDT Inhaled Oxygen Concentration - - Weight 99.3 kg (219 lb) 01/13/2024 10:39 AM EDT Height - - Body Mass Index 32.34 12/15/2023 8:14 AM EDT documented in this encounter Progress Notes * Lois Mcclendon PA-C - 01/13/2024 10:52 AM EDT NEPHROLOGY CLINIC NOTE Nephrology, [facility] [address] [facility] [place] [address] Patient Name: Enzo Shaw Patient Active Problem List Diagnosis Code ADVANCE DIRECTIVE INFORMATION Esophageal reflux K21.9 S/P angioplasty with stent Z95.820 Atherosclerosis of [place] coronary artery of [place] heart with stable angina pectoris (HCC) I25.118 HTN, GOAL BELOW 140/90 I10 Dyslipidemia, goal LDL below 70 E78.5 Nodule of left lung R91.1 Stable angina (HCC) I20.89 Hiatal hernia K44.9 Ascending aorta dilation ([facility]) I77.810 Impotence of organic origin N52.9 Prediabetes R73.03 Hx of actinic keratosis Z87.2 Chronic right shoulder pain M25.511, G89.29 Chronic neck pain M54.2, G89.29 Chronic kidney disease, stage 3a (HCC) N18.31 DDD (degenerative disc disease), cervical M50.30 BACKGROUND: 68 year old male presents for f/u of non proteinuric CKD3A. PMH includes HTN since at least and w/o hx of urgency, CAD w/ 2 stents, GERD, HL, cervical and lumbar DDD and R shoulder pain, nephrolithiasis. Remote hx of shoulder surgery; Home blood pressure checks: N History of stones: Y; no hx of urology intervention; last stone approx approx 2016; no stone pathology available Family history of CKD or ESRD: no apart from kidney stones NSAID use: near daily ES excedrin bid and occasional advil Herbals/supplements: had been on D3 but stopped d/t CKD Last hospital stay: E coli bowel issue admission [facility] 04/2022 >> no record of this found on review of [facility] charts EtOH at holidays only. Never user of tobacco. 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 Today 01/12 Denies any recent hospitalizations, procedures or infections.Acc by today. Reports some itchiness noted of the legs and back and stomach for the pass few months Patient concerned with spirolactone and or torsemide as the cause He reports multiple bouts of prednisone per PCP due to itchiness He reports no changes to household products or foods Does have derm appt in February Continues to fu with Dr Hanley Some dizziness w/ bending over and going back up most every time; resolves after a few seconds Patient currently enrolled with remote program - he reports no alert calls in a long time He reports bp and pulse has been low at times - he reports at times a low as 47 Drinks 2-3 skim milk/day; water 3-4 x 12 oz bottles; coffee 2 cup now 10 oz << total daily fluid intake. Started drinking low Na V8 2 wks ago and enjoys it. No recent stone activity noted . REVIEW OF SYSTEMS General: + fatigue, Head: No significant headache Respiratory:+ wheezing at night, no shortness of breath - Cardiovascular:No chest pain, No palpitations, and No syncope Gastrointestinal: No nausea, vomiting, diarrhea No blood in stools Urinary: No dysuira, No hematuria. No flank pain Musculoskeletal: No edema Skin: + itching All other systems were reviewed and were negative. Current Outpatient Medications Medication Sig Dispense Refill FISH OIL 1000 MG PO CAPS one tablet twice daily 60 5 ASPIRIN 81 MG PO TABS 1 tablets daily (Patient taking differently: No sig reported) 30 Tab 11 fluticasone (FLONASE) 50 MCG/ACT nasal spray Administer 2 Sprays into each nostril daily as needed for Allergies. 1 Inhaler 5 Multiple Vitamins TABS Take by mouth daily. Docusate Sodium 100 MG Oral Capsule (Colace) TAKE 1 CAPSULE BY MOUTH EVERY MORNING 90 Capsule 1 ProAir HFA 108 (90 Base) MCG/ACT Inhalation Aerosol Solution Inhale 2 Puffs by mouth every 4 hours as needed for Wheezing. 18 g 2 amLODIPine Besylate 5 MG Oral Tablet (Norvasc) Take 1 Tablet by mouth 2 times a day. 180 Tablet 3 Spironolactone 25 MG Oral Tablet (Aldactone) TAKE 1 TABLET BY MOUTH IN THE MORNING 90 Tablet 3 Losartan Potassium 100 MG Oral Tablet (Cozaar) TAKE ONE TABLET BY MOUTH EVERY DAY IN THE MORNING 90Tablet 3 Torsemide 5 MG Oral Tablet (Demadex) TAKE ONE TABLET BY MOUTH IN THE MORNING 90 Tablet 3 Gabapentin 100 MG Oral Capsule (Neurontin) Take 1 Capsule by mouth in the morning and 1 Capsule at noon and 1 Capsule before bedtime. (Patient taking differently: Take 1 Capsule by mouth in the morning and 1 Capsule at noon and 1 Capsule before bedtime. Patient taking only at night currently.) 270 Capsule 1 hydroCHLOROthiazide 25 MG Oral Tablet (Hydrodiuril) Take 1 Tablet by mouth in the morning. 90 Tablet 3 Sildenafil Citrate 50 MG Oral Tablet TAKE ONE TABLET BY MOUTH 1 TO 4 HOURS BEFORE INTERCOURSE 4 Tablet 2 Clopidogrel Bisulfate 75 MG Oral Tablet (pLAVix) TAKE ONE TABLET BY MOUTH IN THE MORNING 100 Tablet1 Rosuvastatin Calcium 40 MG Oral Tablet (Crestor) TAKE ONE TABLET BY MOUTH IN THE MORNING 90 Tablet 1 Famotidine 20 MG Oral Tablet (Pepcid) TAKE ONE TABLET BY MOUTH TWICE A DAY 180 Tablet 1 Pantoprazole Sodium 40 MG Oral Tablet Delayed Release (Protonix) TAKE ONE TABLET BY MOUTH EVERY [id number] Tablet 0 Metoprolol Succinate ER 25 MG Oral Tablet Extended Release 24 Hour (toPROL XL) Take 1 Tablet by mouth at bedtime. 90 Tablet 3 Cetirizine HCl 10 MG Oral Tablet (ZyrTEC Allergy) Take 1 Tablet by mouth every night at bedtime. 90Tablet 2 Triamcinolone Acetonide 0.1 % External Cream (Aristocort) Apply topically to affected area 2 times a day 80 g 1 Nitroglycerin 0.4 MG Sublingual Tablet Sublingual (Nitrostat) PLACE 1 TABLET UNDER THE TONGUE EVERY5 MINUTES NEEDED FOR PAIN, CHEST 25 Tablet 5 predniSONE 20 MG Oral Tablet (Deltasone) 2 tablets daily for 5 days then 1 tablet daily (Patient not taking: Reported on 01/13/2024) 15 Tablet 0 No current facility-administered medications for this visit. PHYSICAL EXAMINATION Last 4 BP Readings: BP Readings from Last 4 Encounters: 01/13/24 107/59 12/15/23 138/70 11/15/23 104/70 10/21/23 120/62 Last 3 Weights: Wt Readings from Last 3 Encounters: 01/13/24 99.3 kg (219 lb) 12/15/23 98 kg (216 lb) 11/17/23 97.8 kg (215 lb 11.2 oz) BP 107/59 (BP Site: Right Arm, BP Position: Sitting, BP Cuff Size: Large) | Pulse 55 | Temp 36.6 C (97.9 F) | Resp 18 | Wt 99.3 kg (219 lb) | SpO2 96% | BMI 32.34 kg/m | BSA 2.2 m Wt Readings from Last 1 Encounters: 01/13/24 99.3 kg (219 lb) General appearance: alert, no apparent distress. Ambulatory without assistance HEAD: Normocephalic, No masses, lesions, tenderness Respiratory: clear to auscultation, no rhonchi, no wheezes, and no crackles Heart: regular rate and regular rhythm Abdomen: abdomen soft, non-tender, and no CVA tenderness EXTREMITIES: No edema, No cyanosis or clubbing Skin: skin color, texture, turgor are normal. Mild erythema noted to the lower legs NEURO: alert & oriented x 3 with fluent speech, no focal motor/sensory deficits No tremor Patient is a reliable historian of events LABS: Latest Reference Range & Units 03/25/23 12:17 06/11/23 11:06 06/28/23 00:00 07/01/23 14:37 07/05/23 00:00 10/19/23 12:25 Sodium 135 - 146 mmol/L 140 137 140 140 Potassium 3.5 - 5.1 mmol/L 4.7 4.7 4.3 5.0 POTASSIUM-OUTSIDE LAB 3.5 - 5.1 MMOL/L 4.2 (E) 4.0 (E) Chloride 98 - 107 mmol/L 104 103 106 104 CO2 22 - 32 mmol/L 22 22 21 (L) 26 BUN 6 - 20 mg/dL 36 (H) 36 (H) 29 (H) 25 (H) Creatinine 0.6 - 1.2 mg/dL 1.5 (H) 1.6 (H) 1.3 (H) 1.4 (H) CREATININE-OUTSIDE LAB 0.70 - 1.30 MG/DL 1.54 ! (E) 1.34 ! (E) Estimated Glomerular Filtration Rate >=60 mL/min 49 (L) 46 (L) 62 55 (L) EGFR-OUTSIDE LAB >=60 ML/MIN 49 ! (E) 57 (L) (E) Anion Gap 7 - 15 mmol/L 14 12 13 10 Glucose 70 - 120 mg/dL 105 113 102 100 GLUCOSE-OUTSIDE LAB 70 - 110 MG/DL 95 (E) 122 ! (E) Calcium 8.4 - 10.2 mg/dL 9.8 9.7 9.5 9.7 (L): Data is abnormally low (H): Data is abnormally high !: Data is abnormal (E): External lab result Latest Reference Range & Units 05/28/22 14:03 10/22/22 14:34 Albumin / Creatinine Ratio, Urine <30 mg/g Creat 21 <12 IMAGING: EXAM US RENAL-10/15/2023 11:58 am HISTORY evaluate for stone burden TECHNIQUE Real time sonographic imaging. COMPARISON None. FINDINGS RIGHT KIDNEY: 12.1 cm x 6.7 cm x 6.2 cm. Normal size and echogenicity. 4.1 cm simple cyst in the superior pole. 3.3 cm septated cyst in the mid kidney. 2.8 cm simple cyst in the mid kidney. No hydronephrosis or nephrolithiasis. LEFT KIDNEY: 13.2 cm x 6.4 cm x 4.7 cm. Normal size and echogenicity. 3.8 cm simple cyst in the superior pole. 3.1 cm simple cyst in the superior pole. 3.5 cm septated cyst in the inferior pole. No hydronephrosis or nephrolithiasis. BLADDER: Partially filled. AORTA: Visualized portions normal in caliber. IMPRESSION IMPRESSION Bilateral renal cysts, some mildly complex with thin internal septation. ASSESSMENT/PLAN: The patient's most recent labs (from 3 months ago) were reviewed and the assessment/plan is as follows: Stable CKD 3a with no portienuria noted. Stable chemistries and volume status. No recent stone activity. Stage 3a chronic kidney disease (HCC) (Primary) - BASIC METABOLIC PANEL; Future; Expected date: 03/20/2024 - PTH; Future; Expected date: 03/20/2024 Hypertension goal BP (blood pressure) < 130/80 Hold spiralactone 25 mg due to possible SE of puritisius- Pt with lower pressures today as well cont toprol 25mg, amlodipine 5mg, torsemide 5 mg, losartan 100 mg, hctz 25 mg current doses Cont to monitor bp with remote program - message sent so they are aware of med hold Nephrolithiasis Last stone activity 2016. Most recent imaging Sep 2023 Urorisk testing placed for completion in Sep 2023 with incomplete results Drinking ~70 oz daily >Will re-orer testing but hold given completion given most recent imaging Anthony re-evaluate need with next visit > - URORISK(R) DIAGNOSTIC PROFILE; Future; Expected date: Rash Scant noted of lower ext Hold Spirolactone to see if rash resolves Caution repeated use of prednisone Discussed otc topical oint to fryer line helper in symptoms Keep Derm appt in case symptoms not resolved Labs in March Hold Spirolactone 25 mg - given possible SE of rash and pt with lower pressures and bouts of dizziness Cont to push fluids - pt to compete urorisk more urgently if signs or symptoms of stone occur Avoid medicines like aleve, advil, ibuprofen, aspirin more than 81 mg daily and other NSAIDS which are not good for kidney patients. Take only tylenol (acetaminophen) up to 2000 mg daily as needed for pain or as directed by your primary care provider. Reviewed previous status of kidney function and goals of care. All questions were answered. Check-out note: 5-6 With Reji (MD appt add to wait list if needed) Lois Mcclendon PA-C Nephrology, [address] [place] [address] documented in this encounter Nursing Notes * Carolina Yepez, RN - 01/13/2024 10:42 AM EDT Follow up visit today. States he is having itching and rash. Has been treated with topical creams and prednisone. seems to think it developed and worsened after starting latest meds. Does have appt with Dermatology. Also following with PCP for this. documented in this encounter Plan of Treatment Upcoming Encounters Date Type Department Care Team (Latest Contact Info) Description 01/28/2024 8:30 AM EDT Imaging Cardiac Studies, [facility] [address] [place] [address] 02/16/2024 10:30 AM EDT Office Visit Cardiology, [facility] [address] [place] [address] Pennie Naranjo CRNP [address] [place] [address] 02/21/2024 2:40 PM EDT Office Visit Dermatology [address] [place] [address] Kassi Pool PA-C [address] [place] [address] [place] [address] 02/28/2024 1:45 PM EDT Hospital Encounter ENDO [facility], Endoscopy Room [facility] [address] [place] [phone] Belkis Arambula, DO [address] [place] [address] 02/28/2024 1:45 PM EDT - 02/28/2024 2:15 PM EDT Surgery ENDO [facility], Endoscopy Room [facility] [address] [place] [phone] Belkis Arambula, DO [address] [place] [address] COLONOSCOPY FLEXIBLE PROXIMAL DIAGNOSTIC 04/04/2024 11:40 AM EDT Office Visit Otolaryngology [facility] [address] [place] [address] Renata Garcia PA-C [address] [place] [address] 05/17/2024 3:20 PM EDT Office Visit Family Medicine [address] [place] [phone] Sabino Izaguirre MD [address] [place] [address] [place] [address] 11/17/2024 9:00 AM EST Nurse Only Ancillary [address] [place] [address] [place], Nurse Annual [address] [place] [address] Scheduled Orders Name Type Priority Associated Diagnoses Orde r Schedule BASIC METABOLIC PANEL Lab Routine Stage 3a chronic kidney disease (HCC) Expected: 03/20/2024, Expires: 01/16/2025 PTH Lab Routine Stage 3a chronic kidney disease (HCC) Expected: 03/20/2024, Expires: 01/16/2025 URORISK(R) DIAGNOSTIC PROFILE Lab Routine Nephrolithiasis Expected: 03/20/2024 (Approximate), Expires: 01/16/2025 Scheduled Procedures Name Priority Associated Diagnoses Date/Ti [...] Additional history exists CKD PHOS USE SMARTSET 35701 06/11/2024 06/11/2023 HbA1c 06/11/2024 06/11/2023, 09/0 04/2022, 04/02/2021, Additional history exists CKD HGB USE SMARTSET 63349 10/19/202410/19, 07/05/2023, 06/28/2023, Additional history exists Depression [...] this encounter Medical Devices Implanted Type Area Bedspread Cutter Device Identifier Shelf Expiration Date Model / Serial / Lot Mesh Preshaped Large - [id number] Implanted:Qty : 1 on 12/31/2014 by Jj Weston MD at OR [facility] Right: Groin CR BARD : DAVOL 09/19/2018 [id number] / / [id number] Suture [place] Dbl Load 4.75mm - [id number] Implanted:Qty : 1 on 03/15/2020 by Kar Berry DO at OR [facility] Right: Shoulder [employer] 12/18/2021 [id number] / / [id number] documented as of this encounter Visit Diagnoses Diagnosis Stage 3a chronic kidney disease (HCC)- Primary Hypertension goal BP (blood pressure) < 130/80 Unspecified essential hypertension Nephrolithiasis Calculus of kidney Rash Rash and other nonspecific skin eruption History of colon polyps Personal history of colonic polyps documented in this encounter Advance Directives Latest Code Status on File Code Status Date Activated Date Inactivated Comments Full Code 11/23/2012 8:27 PM 11/24/2012 8:07 PM This or emilia reflects the patients wishes and were consensually agreed upon. Question Answer Comments Discussion of Advance Directives occurred with: Patient/Family Care Teams Manager Field Service Relationship Specialty Start Date End Date Sabino Izaguirre MD [address] [place] [address] [place] [phone] PCP - General Family Medicine 01/21/21 documented as of this encounter"
--- OUTSIDE RECORDS SUMMARY | 2024-02-04 04:57 | External Medical Summary | Summary of Care ---
Author Name Unknown Organization [facility] Address [address] [facility] [address] Phone [phone] Care Team Providers Care Commercial Airplane Pilot Name Role Phone Sabino Izaguirre MD Primary Care Provide r Reason for Visit * Reason Comments Medication Refill Gabapentin Encounter Details Date Type Department Care Team (Late st Contact Info) Description 01/10/2024 11:00 AM EDT Telemedicine Interventional Pain Center, [facility] [address] [place] [address] Lisandra Blankenship PA-C [address] [place] [address] Cervical radicular pain* Allergies Active Allergy Reactions Criticality Noted Date Comments Enalapril Maleate Cough 11/12/2014 documented as of this encounter (statuses as of 01/10/2024) Medications Medication Sig Dispensed Refills Start Date [...] Sublingual Tablet Sublingual (Nitrostat)Indication s:Coronary atherosclerosis of [place] coronary artery,Stable angina (HCC) PLACE 1 TABLET [...] as of this encounter (statuses as of 01/10/2024) Active Problems Problem Noted Date Diagnosed Date [...] Impotence of organic origin 04/18/2008 Atherosclerosis of [place] co ronary artery of [place] heart with stable angina pectoris 01/01/2008 S/P angioplasty with stent 06/30/2006 Esophageal reflux 10/29/2005 ADVANCE DIRECTIVE INFORMATION 08/21/2005 Overview: No, Advance Directive brochure given to patient at prior appointment. documented as of this encounter (statuses as of 01/10/2024) Resolved Problems Problem Noted Date Diagnosed Date Resolved Date Cough due to RANDALL inhibitor 11/12/2014 0 01/30/2019 Hyperkalemia 11/12/2014 11/16/2018 Pre-operative cardiovascular examination 09/11/2014 11/12/2014 [employer] Other*[id number] 11/23/2012 10/27/2016 Overview: Study Title: Genomic Markers for Patients with Cardiovascular Disease Project # [id number] Middle School Teacher: Laine Cadena MD [phone] Abnormal stress echocardiogram 11/17/2012 01/30/2019 Impotence of organic origin 04/18/2008 11/16/2018 Chest pain 08/31/2006 01/30/2019 HIP & THIGH INJURY NOS 12/05/200401/30 Rosacea 02/23/2001 01/30/2019 Dyslipidemia, goal to be determined 08/29/2009 Overview: Per Lipid Taxonomy. HYPERTENSION NOS 08/08/2009 Overview: Modified per HTN protocol #16. documented as of this encounter (statuses as of 01/10/2024) Immunizations Name Administration Dates Next Due COVID-19 mRNA, LNP-s, No Pre serve, 2-Dose Series (Other Machine) 01/01/2022,06/19/2021,11/25/2020,10/21 COVID-19, MRNA-LNP, 23-24, P F, 30 MCG/0.3 mL, 12 YRS AND ABOVE, IM (Extended Stay [place]-Comirnaty) 10/19/2023 H1N1 2009 Influenza, IM 09/24/2009 Pneumococcal [...] as of this encounter Progress Notes * Lisandra Blankenship PA-C - 01/10/2024 10:57 AM EDT Name: Enzo Shaw Date: 01/10/2024 After connecting to the patient via telephone, the patient was identified by name and date of . Patient was then informed that this was a telephone call only visit. The patient agreed to participate. Visit Disposition: Routine follow-up Total call duration four minutes. HPI: Enzo Shaw is a 68 year old male known to the Pain Management clinic presents for medication follow up - using low dose gabapentin for cervical radiculopathy. Thankfully, medication continues to decrease severity and frequency of UE pain and paresthesia. Using 100 mg and 200 mg QHS. Denies unwanted side effects. No refill needed at this time. Denies progressive UE paresthesia, weakness. Denies dexterity changes. Denies bowel/bladder dysfunction. Using gabapentin for pain relief. History of injections: ROB C7/T1: 02/04/23, 10/19/22 + plavix, aspirin 81 mg History: Past Medical History: Diagnosis Date Abnormal stress echocardiogram 11/17/2012 Calculus of kidney Coronary atherosclerosis of [place] coronary artery 01/01/2008 Cough due to RANDALL inhibitor 11/12/2014 Dyslipidemia, goal to be determined GERD (gastroesophageal reflux disease) HTN, goal to be determined Impotence of organic origin 04/18/2008 Rosacea S/P angioplasty with stent 09/10/05 Circumflex Past Surgical History: Procedure Laterality Date ARTHO,SHOUL,W/ROTATOR CUFF Right 03/15/2020 ARTHROSCOPY SHOULDER ROTATOR CUFF performed by Kar Berry DO at OR [facility] CARDIAC ANGIOPLASTY, PERCUTANEOUS, 1 ARTERY 11/23/2012 PTCA, CARDIAC ANGIOPLASTY, PERCUTANEOUS, 1 ARTERY performed by Roc Wilkinson MD at CARDIAC LABS [facility] [place] COLONOSCOPY, DIAGNOSTIC (RECTUM) 08/07/2011 few diverticula COLONOSCOPY, DIAGNOSTIC (RECTUM) 02/08/2017 adenomatous & hyperplastic polyps, diverticulosis, repeat 3 yrs/COLONOSCOPY FLEXIBLE PROXIMAL DIAGNOSTIC performed by Pedro Mejia MD at ENDOSCOPY [facility] COLONOSCOPY, DIAGNOSTIC (RECTUM) 06/05/2020 hyperplastic polyp, repeat 1 yr / COLONOSCOPY FLEXIBLE PROXIMAL DIAGNOSTIC performed by Belkis Arambula DO at ENDOSCOPY [facility] CORONARY ANGIOGRAPHY W/LEFT HEART CATH 09/27/2013 CORONARY ANGIOGRAPHY W/LEFT HEART CATH performed by Yaneth Canada MD at CARDIAC LABS [facility] [place] EGD, FLEXIBLE, W/BIOPSY 04/22/2007 GERD INJECT DX/THER SUBSTANCE INTERLAMINAR CERVICAL/THORACIC W IMAGE GUIDE 10/19/2022 INJECTION SPINE LUMBAR CERVICAL OR THORACIC performed by Leif Bass DO at OR [facility] INJECT DX/THER SUBSTANCE INTERLAMINAR CERVICAL/THORACIC W IMAGE GUIDE 02/04/2023 INJECTION SPINE LUMBAR CERVICAL OR THORACIC performed by Leif Bass DO at OR [facility] OTHER (INFORMATION) 1982 hernia repair- left inguinal REMOVE TONSILS & ADENOIDS, UNDER 12 REPAIR INITIAL INGUINAL HERNIA REDUCIBLE AGE 5 OR MORE Right 12/31/2014 12/31/2014 - - right REPAIR INITIAL INGUINAL HERNIA REDUCIBLE AGE 5 OR MORE performed by Jj Weston MD at OR [facility] REPAIR OF NASAL SEPTUM SHOULDER ARTHROSCOPY SURGERY Right 03/15/2020 ARTHROSCOPY SHOULDER DISTAL CLAVICLE RESECTION performed by Kar Berry DO at [facility] SHOULDER ARTHROSCOPY/DECOMPRESSION Right 03/15/2020 ARTHROSCOPY SHOULDER SUBACROMIAL DECOMPRESSION performed by Kar Berry DO at [facility] UMBIL HERNIA REPAIR (INCARCERATED) AGE 5+YR N/A 09/17/2014 09/17/2014 REPAIR UMBILICAL HERNIA AGE 5 OR OVER INCARCERATED performed by Jj Weston MD at [facility] Current Outpatient Medications Medication Sig Dispense Refill [...] MOUTH IN THE MORNING 90 Tablet 3 Nitroglycerin 0.4 MG Sublingual Tablet Sublingual (Nitrostat) PLACE 1 TABLET UNDER THE TONGUE EVERY5 MINUTES NEEDED FOR PAIN, CHEST 25 Tablet 5 Losartan Potassium 100 MG Oral Tablet (Cozaar) [...] (Protonix) TAKE ONE TABLET BY MOUTH EVERY IOV887 Tablet 0 Metoprolol Succinate ER 25 MG Oral Tablet Extended Release 24 Hour (toPROL XL) Take 1 Tablet by mouth at bedtime. 90 Tablet 3 predniSONE 20 MG Oral Tablet (Deltasone) 2 tablets daily for 5 days then 1 tablet daily 15 Tablet 0 Cetirizine HCl 10 MG Oral Tablet (ZyrTEC Allergy) Take 1 Tablet by mouth every night at bedtime. 90Tablet 2 Triamcinolone Acetonide 0.1 % External Cream (Aristocort) Apply topically to affected area 2 times a day 80 g 1 No current facility-administered medications for this visit. Review of patient's allergies indicates: Allergen Reactions Enalapril Maleate Cough ASSESSMENT: Cervical radicular pain RECOMMENDATION: Doing well on low dose gabapentin. Denies unwanted side effects. No refill needed at this time. Continue 100 mg AM and 200 mg QHS. Follow up in one year or sooner if needed. Encouraged to continue home stretching program. Total call duration four minutes. Lisandra Blankenship PA-C 01/10/2024 documented in this encounter Plan of Treatment Upcoming Encounters Date Type Department Care Team (Latest Contact Info) Description 01/13/2024 10:30 AM EDT Office Visit Nephrology, [facility] [address] [place] [address] ZemaLois hermosillo PA-C [address] [place] [address] 01/28/2024 8:30 AM EDT Imaging Cardiac Studies, [facility] [address] [place] [address] 02/16/2024 10:30 AM EDT Office Visit Cardiology, [facility] [address] [place] [address] Pennie Naranjo CRNP [address] [place] [address] 02/21/2024 2:40 PM EDT Office Visit Dermatology [address] [place] [address] Kassi Pool PA-C [address] [place] [address] [place] [address] 02/28/2024 1:45 PM EDT Hospital Encounter ENDO [facility], Endoscopy Room [facility] [address] [place] [phone] Belkis Arambula DO [address] [place] [address] 02/28/2024 1:45 PM EDT - 02/28/2024 2:15 PM EDT Surgery ENDO [facility], Endoscopy Room [facility] [address] [place] [phone] Belkis Arambula, [address] [place] [address] COLONOSCOPY FLEXIBLE PROXIMAL DIAGNOSTIC 04/04/2024 11:40 AM EDT Office Visit Otolaryngology [facility] [address] [place] [address] Renata Garcia PA-C [address] [place] [address] 05/17/2024 3:20 PM EDT Office Visit Family Medicine [address] [place] [phone] Sabino Izaguirre MD [address] [place] [address] [place] [address] 11/17/2024 9:00 AM EST Nurse Only Ancillary [address] [place] [address] [place], Nurse Annual [address] [place] [address] Scheduled Procedures Name Priority Associated Diagnoses Date/Ti me COLONOSCOPY FLEXIBLE PROXIMAL DIAGNOSTIC History of colon polyps 02/28/2024 1:45 PM EDT Health Maintenance Due Date Last Done Comments COLONOSCOPY-EVERY 3 YRS AGES 18-100 06/05/2023 06/05/2020, 06/05/2020, 02/08/2017, Additional history exists Albumin/Creatinine Ratio 10/22/2023 10/22/2022, 04/2022 GFR 04/18/2024 10/19/2023, 06/20, 07/01/2023, Additional history exists CKD PHOS USE SMARTSET 62948 06/11/2024 06/11/2023 HbA1c 06/11/2024 06/11/2023, 04/2022, 04/02/2021, Additional history exists CKD HGB USE SMARTSET 65323 10/19/202410/19, 07/05/2023, 06/28/2023, Additional history exists Depression [...] this encounter Medical Devices Implanted Type Area Open Claims Representative Device Identifier Shelf Expiration Date Model / Serial / Lot Mesh Preshaped Large - [id number] Implanted:Qty : 1 on 12/31/2014 by Jj Weston MD at OR [facility] Right: Groin CR BARD : DAVOL 09/19/2018 [id number] / / [id number] Suture [place] Dbl Load 4.75mm - [id number] Implanted:Qty : 1 on 03/15/2020 by Kar Berry DO at OR [facility] Right: Shoulder [employer] 12/18/2021 [id number]- [id number] / / [id number] documented as of this encounter Visit Diagnoses Diagnosis Cervical radicular pain- Primary Brachial neuritis or radiculitis nos History of colon polyps Personal history of colonic polyps documented in this encounter Advance Directives Latest Code Status on File Code Status Date Activated Date Inactivated Comments Full Code 11/23/2012 8:27 PM 11/24/2012 8:07 PM This or emilia reflects the patients wishes and were consensually agreed upon. Question Answer Comments Discussion of Advance Directives occurred with: Patient/Family Care Teams Commercial Airplane Pilot Relationship Specialty Start Date End Date Sabino Izaguirre MD [address] [place] [address] [place] [phone] PCP - General Family Medicine 01/21/21 documented as of this encounter
--- OUTSIDE RECORDS SUMMARY | 2024-02-04 04:58 | External Medical Summary | Summary of Care ---
Author Name Unknown Organization [facility] Address [address] [place] [address] Phone [phone] Care Team Providers Care Head Of Merchandise Buying Name Role Phone Sabino Izaguirre MD Primary Care Provide r Reason for Visit * Reason Onset Date Comments Appointment 12/02/2023 Encounter Details Date Type Department Care Team (Late st Contact Info) Description 12/02/2023 Telephone Gastroenterology, [facility] [address] [place] [address] Services, Scheduling [address] [place] [address] Appointment Allergies Active Allergy Reactions Criticality Noted Date Comments Enalapril Maleate Cough 11/12/2014 documented as of this encounter (statuses as of 12/02/2023) Medications Medication Sig Dispensed Refills Start Date [...] Sublingual Tablet Sublingual (Nitrostat)Indication s:Coronary atherosclerosis of [place] coronary artery,Stable angina PLACE 1 TABLET UNDER THE TONGUE EVERY [...] Release 24 Hour (toPROL XL)Indications:Palpit ations,Stable angina Take 1 Tablet by mouth at bedtime. 90 Tablet 3 11/04/2023 Active Triamcinolone Acetonide 0.1 % External Cream (Aristocort)Indicatio ns:Contact dermatitis, unspecified contact dermatitis type, unspecified trigger Apply topically to affected area 2 times a day. To affected area. 80 g 0 11/04/2023 Active documented as of this encounter (statuses as of 12/02/2023) Active Problems Problem Noted Date Diagnosed Date [...] Impotence of organic origin 04/18/2008 Atherosclerosis of [place] co ronary artery of [place] heart with stable angina pectoris 01/01/2008 S/P angioplasty with stent 06/30/2006 Esophageal reflux 10/29/2005 ADVANCE DIRECTIVE INFORMATION 08/21/2005 Overview: No, Advance Directive brochure given to patient at prior appointment. documented as of this encounter (statuses as of 12/02/2023) Resolved Problems Problem Noted Date Diagnosed Date Resolved Date Cough due to RANDALL inhibitor 11/12/2014 0 01/30/2019 Hyperkalemia 11/12/2014 11/16/2018 Pre-operative cardiovascular examination 09/11/2014 11/12/2014 [employer] Other*[id number] 11/23/2012 10/27/2016 Overview: Study Title: Genomic Markers for Patients with Cardiovascular Disease Project # [id number] Garage Mechanic: Laine Cadena MD [phone] Abnormal stress echocardiogram 11/17/2012 01/30/2019 Impotence of organic origin 04/18/2008 11/16/2018 Chest pain 08/31/2006 01/30/2019 HIP & THIGH INJURY NOS 12/05/200401/30 Rosacea 02/23/2001 01/30/2019 Dyslipidemia, goal to be determined 08/29/2009 Overview: Per Lipid Taxonomy. HYPERTENSION NOS 08/08/2009 Overview: Modified per HTN protocol #16. documented as of this encounter (statuses as of 12/02/2023) Immunizations Name Administration Dates Next Due COVID-19 [...] encounter Miscellaneous Notes * Telephone Encounter - Michelle Cantrell OSA - 12/02/2023 11:54 AM EDT Pt already res'd to 12/23/23. * Telephone Encounter - Birgit Eugene OSA - 12/02/2023 9:33 AM EDT Pt needs to reschedule colonoscopy scheduled for 12/15/[address] Thompson documented in this encounter Plan of Treatment Upcoming Encounters Date Type Department Care Team (Latest Contact Info) Description 12/15/2023 8:20 AM EDT Office Visit Family [address] [place] [phone] Brook Simmons PA-C [address] [place] [address] [place] [address] 12/23/2023 10:30 AM EDT Hospital Encounter ENDO [facility], Endoscopy Room [facility] [address] [place] [phone] Belkis Arambula, DO [address] [place] [address] 12/23/2023 10:30 AM EDT - 12/23/2023 11:00 AM EDT Surgery ENDO [facility], Endoscopy Room [facility] [address] [place] [phone] Belkis Arambula, DO [address] [place] [address] COLONOSCOPY FLEXIBLE PROXIMAL DIAGNOSTIC 01/11/2024 11:30 AM EDT Telemedicine Interventional Pain Center, [facility] [address] [place] [address] Lisandra Blankenship PA-C [address] [place] [address] 01/13/2024 10:30 AM EDT Office Visit Nephrology, [address] [place] [address] Lois Mcclendon PA-C [address] [place] [address] 01/28/2024 8:30 AM EDT Imaging Cardiac Studies, [facility] [address] [place] [address] 02/16/2024 10:30 AM EDT Office Visit Cardiology, [facility] [address] [facility] [place] [address] Pennie Naranjo CRNP [address] [place] [address] 04/04/2024 11:40 AM EDT Office Visit Otolaryngology [facility] [address] [place] [address] Reanta Garcia PA-C [address] [place] [address] 05/17/2024 3:20 PM EDT Office Visit Family Medicine [address] [place] [phone] Sabino Izaguirre MD [address] [place] [address] [place] [address] 11/17/2024 9:00 AM EST Nurse Only Ancillary [address] [place] [address] [place], Nurse Annual Wellness [address] [place] [address] [place] [address] Scheduled Procedures Name Priority Associated Diagnoses Date/Ti me COLONOSCOPY FLEXIBLE PROXIMAL DIAGNOSTIC History of colon polyps 12/23/2023 10:30 AM EDT Health Maintenance Due Date Last Done Comments COLONOSCOPY-EVERY 3 YRS AGES 18-100 06/05/2023 06/05/2020, 06/05/2020, 02/08/2017, Additional history exists Albumin/Creatinine Ratio 10/22/2023 10/22/2022, 0 04/2022 GFR 04/18/2024 10/19/2023, 06/20, 07/01/2023, Additional history exists CKD PHOS USE SMARTSET 20094 06/11/2024 06/11/2023 HbA1c 06/11/2024 06/11/2023, 04/2022, 04/02/2021, Additional history exists CKD HGB USE SMARTSET 48830 10/19/202410/19, 07/05/2023, 06/28/2023, Additional history exists Depression [...] this encounter Medical Devices Implanted Type Area Electrical Project Manager Device Identifier Shelf Expiration Date Model / Serial / Lot Mesh Preshaped Large - [id number] Implanted:Qty : 1 on 12/31/2014 by Jj Weston MD at OR [facility] Right: Groin CR BARD : DAVOL 09/19/2018 [id number] / / [id number] Suture [place] Dbl Load 4.75mm - [id number] Implanted:Qty : 1 on 03/15/2020 by Kar Berry DO at OR [facility] Right: Shoulder [employer] 12/18/2021 AR-[id number]- 2 / / [id number] documented as of this encounter Advance Directives Latest Code Status on File Code Status Date Activated Date Inactivated Comments Full Code 11/23/2012 8:27 PM 11/24/2012 8:07 PM This or emilia reflects the patients wishes and were consensually agreed upon. Question Answer Comments Discussion of Advance Directives occurred with: Patient/Family Care Teams Head Of Merchandise Buying Relationship Specialty Start Date End Date Sabino Izaguirre MD [address] [place] [address] [place] [address] PCP - General Family Medicine 01/21/21 documented as of this encounter
--- OUTSIDE RECORDS SUMMARY | 2024-02-04 04:58 | External Medical Summary | Summary of Care ---
Author Name Unknown Organization [facility] Address [address] [facility] [place] [address] Phone [phone] Care Team Providers Care Linseed Oil Temperer Name Role Phone Sabino Izaguirre MD Primary Care Provide r Reason for Visit * Reason Comments Follow Up Encounter Details Date Type Department Care Team (Late st Contact Info) Description 11/17/2023 11:40 AM EST Office Visit Otolaryngology [facility] [address] [place] [address] Renata Garcia PA-C [address] [place] [address] Bilateral impacted cerumen* Allergies Active Allergy Reactions Criticality Noted Date Comments Enalapril Maleate Cough 11/12/2014 documented as of this encounter (statuses as of 11/17/2023) Medications Medication Sig Dispensed Refills Start Date [...] Sublingual Tablet Sublingual (Nitrostat)Indication s:Coronary atherosclerosis of [place] coronary artery,Stable angina PLACE 1 TABLET UNDER [...] as of this encounter (statuses as of 11/17/2023) Active Problems Problem Noted Date Diagnosed Date [...] Impotence of organic origin 04/18/2008 Atherosclerosis of [place] co ronary artery of [place] heart with stable angina pectoris 01/01/2008 S/P angioplasty with stent 06/30/2006 Esophageal reflux 10/29/2005 ADVANCE DIRECTIVE INFORMATION 08/21/2005 Overview: No, Advance Directive brochure given to patient at prior appointment. documented as of this encounter (statuses as of 11/17/2023) Resolved Problems Problem Noted Date Diagnosed Date Resolved Date Cough due to RANDALL inhibitor 11/12/2014 0 01/30/2019 Hyperkalemia 11/12/2014 11/16/2018 Pre-operative cardiovascular examination 09/11/2014 11/12/2014 [employer] Other*[id number] 11/23/2012 10/27/2016 Overview: Study Title: Genomic Markers for Patients with Cardiovascular Disease Project # [id number] Nurse Ortho: Laine Cadena MD [phone] Abnormal stress echocardiogram 11/17/2012 01/30/2019 Impotence of organic origin 04/18/2008 11/16/2018 Chest pain 08/31/2006 01/30/2019 HIP & THIGH INJURY NOS 12/05/200401/30 Rosacea 02/23/2001 01/30/2019 Dyslipidemia, goal to be determined 08/29/2009 Overview: Per Lipid Taxonomy. HYPERTENSION NOS 08/08/2009 Overview: Modified per HTN protocol #16. documented as of this encounter (statuses as of 11/17/2023) Immunizations Name Administration Dates Next Due COVID-19 mRNA, LNP-s, No Pre serve, 2-Dose Series ([employer]) 01/01/2022,06/19/2021,11/25/2020,10/21 COVID-19, MRNA-LNP, 23-24, P F, 30 [...] Sign Reading Time Taken Comments Blood Pressure - - Pulse - - Temperature - - Respiratory Rate - - Oxygen Saturation - - Inhaled Oxygen Concentration - - Weight 97.8 kg (215 lb 11.2 oz) 024 11:22 AM EST Height 175.3 cm (5' 9.02") 11/17/2023 1 1:22 AM EST Body Mass Index 31.84 11/17/2023 11:22 AM EST documented in this encounter Progress Notes * Renata Garcia PA-C - 11/17/2023 11:40 AM EST SUBJECTIVE: Enzo Shaw is a 67 year old male. Chief Complaint Patient presents with Follow Up Nursing Notes: Jazz Yepez LPN 11/17/23 1123 Signed Pt presents today for cerumen removal. Pt denies having any issues nor concerns since his last visit. HPI: Pt presents for 6 month return appointment for cerumen removal. He has left aural fullness. Nootalgia or otorrhea. Patient Active Problem List Diagnosis Code ADVANCE DIRECTIVE INFORMATION Esophageal reflux K21.9 S/P angioplasty with stent Z95.820 Atherosclerosis of [place] coronary artery of [place] heart with stable angina pectoris ([facility]) I25.118 HTN, GOAL BELOW 140/90 I10 Dyslipidemia, goal LDL below 70 E78.5 Nodule of left lung R91.1 Stable angina I20.89 Hiatal hernia K44.9 Ascending aorta dilation ([facility]) I77.810 Impotence of organic origin N52.9 Prediabetes R73.03 Hx of actinic keratosis Z87.2 Chronic right shoulder pain M25.511, G89.29 Chronic neck pain M54.2, G89.29 Chronic kidney disease, stage 3a ([facility]) N18.31 DDD (degenerative disc disease), cervical M50.30 Current Outpatient Medications Medication Sig Dispense Refill [...] (Protonix) TAKE ONE TABLET BY MOUTH EVERY [id number] Tablet 0 Metoprolol Succinate ER 25 MG Oral Tablet Extended Release 24 Hour (toPROL XL) Take 1 Tablet by mouth at bedtime. 90 Tablet 3 Triamcinolone Acetonide 0.1 % External Cream (Aristocort) Apply topically to affected area 2 times a day. To affected area. 80 g 0 No current facility-administered medications for this visit. Review of patient's allergies indicates: Allergen Reactions Enalapril Maleate Cough REVIEW OF SYSTEMS Negative for constitutional, heart, lung, liver, kidney, digestive, hematologic, neurologic, rheumatologic, or endocrine complaints except as per history of present illness and past medical history. OBJECTIVE: Ht 1.753 m (5' 9.02") | Wt 97.8 kg (215 lb 11.2 oz) | BMI 31.84 kg/m | BSA 2.18 m PHYSICAL EXAM: General: alert, healthy, and no distress Ears: Examination of the ears revealed that the auricles were normally formed with no lesions. The external auditory canals were cleaned of impacted cerumen from both canals with forceps and suction-see below procedure documentation. The tympanic membranes were intact and freely mobile to pneumatoscopy without perforation or significant retraction pockets. Procedure- preformed by myself- In order to better examine the ears the patient was brought to the microscope room where his ears were examined under the operating microscope with impacted cerumen removed with suction and forceps atraumatically. He tolerated procedure well. ASSESSMENT/PLAN: Encounter Diagnoses Name Primary? Bilateral impacted cerumen Yes Plan: Cerumen removed. He will return in 4-6 months. Renata Garcia PA-C 11/17/2023 8:00 AM documented in this encounter Nursing Notes * Jazz Yepez LPN - 11/17/2023 11:22 AM EST Pt presents today for cerumen removal. Pt denies having any issues nor concerns since his last visit. documented in this encounter Plan of Treatment Upcoming Encounters Date Type Department Care Team (Latest Contact Info) Description 12/15/2023 2:00 PM EDT Hospital Encounter ENDO [facility], Endoscopy Room [facility] [address] [place] [phone] Marcellus Thompson MD [address] [place] [address] 12/15/2023 2:00 PM EDT - 12/15/2023 2:30 PM EDT Surgery ENDO [facility], Endoscopy Room [facility] [address] [place] [phone] Marcellus Thompson MD [address] [place] [address] COLONOSCOPY FLEXIBLE PROXIMAL DIAGNOSTIC 01/11/2024 11:30 AM EDT Telemedicine Interventional Pain Center, [facility] [address] [place] [address] Lisandra Blankenship PA-C [address] [address] 01/13/2024 10:30 AM EDT Office Visit Nephrology, [facility] [address] [place] [address] ZemaLois hermosillo PA-C [address] [place] [address] 01/28/2024 8:30 AM EDT [facility] [place] [address] 02/16/2024 10:30 AM EDT Office [facility] [place] [address] Pennie Naranjo CRNP [address] [place] [address] 04/04/2024 11:40 AM EDT Office Visit Otolaryngology [facility] [address] [place] [address] Renata Garcia PA-C [address] [place] [address] 05/17/2024 3:20 PM EDT Office Visit Family Medicine [address] [place] [phone] Sabino Izaguirre MD [address] [place] [address] [place] [address] 11/17/2024 9:00 AM EST Nurse Only Ancillary [place] Amador[address] [place] [address] Veronica, Nurse [address] [place] [address] Scheduled Procedures Name Priority Associated Diagnoses Date/Ti me COLONOSCOPY FLEXIBLE PROXIMAL DIAGNOSTIC Recall History of colon polyps 12/15/2023 2:00 PM EDT Health Maintenance Due Date Last Done Comments COLONOSCOPY-EVERY 3 YRS AGES 18-100 06/05/2023 06/05/2020, 06/05/2020, 02/08/2017, Additional history exists Albumin/Creatinine Ratio 10/22/2023 10/22/2022, 0 04/2022 GFR 04/18/2024 10/19/2023, 06/20, 07/01/2023, Additional history exists CKD PHOS USE SMARTSET 44696 06/11/2024 06/11/2023 HbA1c 06/11/2024 06/11/2023, 0 04/2022, 04/02/2021, Additional history exists CKD HGB USE SMARTSET 46725 10/19/202410/19, 07/05/2023, 06/28/2023, Additional history exists Depression [...] this encounter Medical Devices Implanted Type Area Asbestos Microscopist Device Identifier Shelf Expiration Date Model / Serial / Lot Mesh Preshaped Large - [id number] Implanted:Qty : 1 on 12/31/2014 by Jj Weston MD at OR [facility] Right: Groin CR BARD : DAVOL 09/19/2018 [id number] / / [id number] Suture [place] Dbl Load 4.75mm - [id number] Implanted:Qty : 1 on 03/15/2020 by Kar Berry DO at OR [facility] Right: Shoulder [employer] 12/18/2021 [id number]- [id number] / / [id number] documented as of this encounter Visit Diagnoses Diagnosis Bilateral impacted cerumen- Primary Impacted cerumen History of colon polyps Personal history of colonic polyps documented in this encounter Advance Directives Latest Code Status on File Code Status Date Activated Date Inactivated Comments Full Code 11/23/2012 8:27 PM 11/24/2012 8:07 PM This or emilia reflects the patients wishes and were consensually agreed upon. Question Answer Comments Discussion of Advance Directives occurred with: Patient/Family Care Teams Linseed Oil Temperer Relationship Specialty Start Date End Date Sabino Izaguirre MD [address] [place] [address] [place] [address] PCP - General Family Medicine 01/21/21 documented as of this encounter
--- OUTSIDE RECORDS SUMMARY | 2024-02-04 04:58 | External Medical Summary | Summary of Care ---
Author Name Unknown Organization [facility] Address [address] [place] [facility] [place] [address] Phone [phone] Care Team Providers Care University Administrator Name Role Phone Sabino Izaguirre MD Primary Care Provide r Reason for Referral * Medication Prior Authorization - Pending Review Specialty Diagnoses / Procedures Referred By Naima heck Referred To Contact Diagnoses Itching Brook Simmons PA-C [address] [place] [address] [place] [address] Referral ID Status Reason Start Date Expiration Date V isits Requested Visits Authorized [id number] Pending Review 999 999 Reason for Visit * Reason Comments Acute Encounter Details Date Type Department Care Team (Late st Contact Info) Description 12/15/2023 8:20 AM EDT Office Visit Family Medicine [address] [place] [phone] Brook Simmons PA-C [address] [place] [address] [place] [address] Itching* Allergies Active Allergy Reactions Criticality Noted Date Comments Enalapril Maleate Cough 11/12/2014 documented as of this encounter (statuses as of 12/15/2023) Medications Medication Sig Dispensed Refills Start Date [...] Sublingual Tablet Sublingual (Nitrostat)Indication s:Coronary atherosclerosis of [place] coronary artery,Stable angina (HCC) PLACE 1 TABLET [...] affected area. 80 g 0 11/04/2023 Active Cetirizine HCl 10 MG Oral Tablet (ZyrTEC Allergy)Indications:I tching Take 1 Tablet by mouth in the morning. 30 Tablet 5 12/15/2023 Active predniSONE 20 MG Oral Tablet (Deltasone)Indication s:Itching 2 tablets daily for 5 days then 1 tablet daily 15 Tablet 0 12/15/2023 Active documented as of this encounter (statuses as of 12/15/2023) Active Problems Problem Noted Date Diagnosed Date [...] Impotence of organic origin 04/18/2008 Atherosclerosis of [place] co ronary artery of [place] heart with stable angina pectoris 01/01/2008 S/P angioplasty with stent 06/30/2006 Esophageal reflux 10/29/2005 ADVANCE DIRECTIVE INFORMATION 08/21/2005 Overview: No, Advance Directive brochure given to patient at prior appointment. documented as of this encounter (statuses as of 12/15/2023) Resolved Problems Problem Noted Date Diagnosed Date Resolved Date Cough due to RANDALL inhibitor 11/12/2014 0 01/30/2019 Hyperkalemia 11/12/2014 11/16/2018 Pre-operative cardiovascular examination 09/11/2014 11/12/2014 [employer] Other*[id number] 11/23/2012 10/27/2016 Overview: Study Title: Genomic Markers for Patients with Cardiovascular Disease Project # [id number] Associate Professor Of Chemistry: Laine Cadena MD [phone] Abnormal stress echocardiogram 11/17/2012 01/30/2019 Impotence of organic origin 04/18/2008 11/16/2018 Chest pain 08/31/2006 01/30/2019 HIP & THIGH INJURY NOS 12/05/200401/30 Rosacea 02/23/2001 01/30/2019 Dyslipidemia, goal to be determined 08/29/2009 Overview: Per Lipid Taxonomy. HYPERTENSION NOS 08/08/2009 Overview: Modified per HTN protocol #16. documented as of this encounter (statuses as of 12/15/2023) Immunizations Name Administration Dates Next Due COVID-19 mRNA, LNP-s, No Pre serve, 2-Dose Series ([employer]) 01/01/2022,06/19/2021,11/25/2020,10/21 COVID-19, MRNA-LNP, 23-24, P F, 30 [...] Sign Reading Time Taken Comments Blood Pressure 138/70 12/15/2023 8:14 AM EDT Pulse 68 12/15/2023 8:14 AM EDT Temperature 36.4 C (97.6 F) 12/15/2023 8:14 AM ED T Respiratory Rate 16 12/15/2023 8:14 AM EDT Oxygen Saturation 94% 12/15/2023 8:14 AM EDT Inhaled Oxygen Concentration - - Weight 98 kg (216 lb) 12/15/2023 8:14 AM EDT Height 175.3 cm (5' 9") 12/15/2023 8:14 AM EDT Body Mass Index 31.9 12/15/2023 8:14 AM EDT documented in this encounter Progress Notes * Brook Simmons PA-C - 12/15/2023 8:18 AM EDT Chief Complaint Patient presents with Acute Acute visit pt was seen 1 mo ago for Itchy Rash. The bumps never went away but the itching did withPrednisone, now it is back again Pt also has a cough for about a month also Pt here today with rash. He was seen about 2 months ago for this. Itching was relieved with prednisone. The rash never actually went away. Now, its fully back. Pt is itchy on his back, arms, legs. Ptwas taking an OTC antihistamine. Pt hasn't changed anything that he can think of. Pt tried moisturizing creams, body wash, humidifier. Pt was having a cough but this has gotten much better. Review of patient's allergies indicates: Allergen Reactions Enalapril Maleate Cough Current Outpatient Medications Medication Sig Dispense Refill [...] (Protonix) TAKE ONE TABLET BY MOUTH EVERY [id number] Tablet 0 Metoprolol Succinate ER 25 MG Oral Tablet Extended Release 24 Hour (toPROL XL) Take 1 Tablet by mouth at bedtime. 90 Tablet 3 Triamcinolone Acetonide 0.1 % External Cream (Aristocort) Apply topically to affected area 2 times a day. To affected area. 80 g 0 No current facility-administered medications for this visit. 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 Tobacco Use Smoking status: Never Smokeless tobacco: Never Vaping Use Vaping Use: Never used Substance and Sexual Activity Alcohol use: Yes Alcohol/week: 5.8 standard drinks of alcohol Types: 7 5 oz of wine per week Comment: Once a month Drug use: No Sexual activity: Yes Partners: Female Other Topics Concern Not on file Social History Narrative ; 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 rate 16, height 1.753 m (5' 9"), weight 98 kg (216 lb), SpO2 94%. GENERAL: alert, healthy, and no distress SKIN: no rash seen A:Itching (Primary) - Cetirizine HCl 10 MG Oral Tablet (ZyrTEC Allergy); Take 1 Tablet by mouth in the morning. - predniSONE 20 MG Oral Tablet (Deltasone); 2 tablets daily for 5 days then 1 tablet daily Start above meds. Any questions/problems, please call. If anything changes, worsens, develops new sx, please call [facility]. Follow Up: Return if symptoms worsen or fail to improve. Brook Simmons PA-C * Oma Guajardo RN - 12/15/2023 8:13 AM EDT Acute visit pt was seen 1 mo ago for Itchy Rash. The bumps never went away but the itching did withPrednisone, now it is back again Pt also has a cough for about a month also documented in this encounter Plan of Treatment Upcoming Encounters Date Type Department Care Team (Latest Contact Info) Description 12/23/2023 10:30 AM EDT Hospital Encounter ENDO [facility], Endoscopy Room [facility] [address] [place] [phone] Belkis Arambula, DO [address] [place] [address] 12/23/2023 10:30 AM EDT - 12/23/2023 11:00 AM EDT Surgery ENDO [facility], Endoscopy Room [facility] [address] [place] [phone] Belkis Arambula, DO [address] [place] [address] COLONOSCOPY FLEXIBLE PROXIMAL DIAGNOSTIC 01/11/2024 11:30 AM EDT Telemedicine Interventional Pain Center, [facility] [address] [place] [address] Lisandra Blankenship PA-C [address] [place] [address] 01/13/2024 10:30 AM EDT Office Visit Nephrology, [address] [place] [address] Lois Mcclendon PA-C [address] [place] [address] 01/28/2024 8:30 AM EDT Imaging Cardiac Studies, [facility] [address] [facility] [place] [address] 02/16/2024 10:30 AM EDT Office Visit Cardiology, [facility] [address] [facility] [place] [address] Pennie Naranjo CRNP [address] [place] [address] 04/04/2024 11:40 AM EDT Office Visit Otolaryngology [facility] [address] [place] [address] Renata Garcia PA-C [address] [place] [address] 05/17/2024 3:20 PM EDT Office Visit Family Medicine [address] [place] [phone] Sabino Izaguirre MD [address] [place] [address] [place] [address] 11/17/2024 9:00 AM EST Nurse Only Ancillary [address] [place] [address] [place], Nurse Annual [address] [place] [address] Scheduled Procedures Name Priority Associated Diagnoses Date/Ti me COLONOSCOPY FLEXIBLE PROXIMAL DIAGNOSTIC History of colon polyps 12/23/2023 10:30 AM EDT Health Maintenance Due Date Last Done Comments COLONOSCOPY-EVERY 3 YRS AGES 18-100 06/05/2023 06/05/2020, 06/05/2020, 02/08/2017, Additional history exists Albumin/Creatinine Ratio 10/22/2023 10/22/2022, 0 04/2022 GFR 04/18/2024 10/19/2023, 06/20, 07/01/2023, Additional history exists CKD PHOS USE SMARTSET 45152 06/11/2024 06/11/2023 HbA1c 06/11/2024 06/11/2023, 04/2022, 04/02/2021, Additional history exists CKD HGB USE SMARTSET 86597 10/19/202410/19, 07/05/2023, 06/28/2023, Additional history exists Depression [...] this encounter Medical Devices Implanted Type Area Bag Mender Device Identifier Shelf Expiration Date Model / Serial / Lot Mesh Preshaped Large - [id number] Implanted:Qty : 1 on 12/31/2014 by Jj Weston MD at OR [facility] Right: Groin CR BARD : DAVOL 09/19/2018 [id number] / / [id number] Suture [place] Dbl Load 4.75mm - [id number] Implanted:Qty : 1 on 03/15/2020 by Kar Berry DO at OR [facility] Right: Shoulder [employer] 12/18/2021 AR-[id number]- 2 / / [id number] documented as of this encounter Visit Diagnoses Diagnosis Itching- Primary Unspecified pruritic disorder History of colon polyps Personal history of colonic polyps documented in this encounter Advance Directives Latest Code Status on File Code Status Date Activated Date Inactivated Comments Full Code 11/23/2012 8:27 PM 11/24/2012 8:07 PM This or emilia reflects the patients wishes and were consensually agreed upon. Question Answer Comments Discussion of Advance Directives occurred with: Patient/Family Care Teams University Administrator Relationship Specialty Start Date End Date Sabino Izaguirre MD [address] [place] [address] [place] [phone] PCP - General Family Medicine 01/21/21 documented as of this encounter
--- OUTSIDE RECORDS SUMMARY | 2024-02-04 04:58 | External Medical Summary | Summary of Care ---
Author Name Unknown Organization [facility] Address [address] [facility] [place] [address] Phone [phone] Care Team Providers Care Home Demonstration Agent Name Role Phone Sabino Izaguirre MD Primary Care Provide r Encounter Details Date Type Department Care Team (Late st Contact Info) Description 12/21/2023 Telephone OR [facility], Operating Room [facility] [address] [place] [phone] Belkis Arambula DO [address] [place] [address] Allergies Active Allergy Reactions Criticality Noted Date Comments Enalapril Maleate Cough 11/12/2014 documented as of this encounter (statuses as of 12/21/2023) Medications Medication Sig Dispensed Refills Start Date [...] Sublingual Tablet Sublingual (Nitrostat)Indication s:Coronary atherosclerosis of [place] coronary artery,Stable angina (HCC) PLACE 1 TABLET [...] affected area. 80 g 0 11/04/2023 Active predniSONE 20 MG Oral Tablet (Deltasone)Indication s:Itching 2 tablets daily for 5 days then 1 tablet daily 15 Tablet 0 12/15/2023 Active Cetirizine HCl 10 MG Oral Tablet (ZyrTEC Allergy)Indications:I tching Take 1 Tablet by mouth every night at bedtime. 90 Tablet 2 12/21/2023 Active documented as of this encounter (statuses as of 12/21/2023) Active Problems Problem Noted Date Diagnosed Date [...] Impotence of organic origin 04/18/2008 Atherosclerosis of [place] co ronary artery of [place] heart with stable angina pectoris 01/01/2008 S/P angioplasty with stent 06/30/2006 Esophageal reflux 10/29/2005 ADVANCE DIRECTIVE INFORMATION 08/21/2005 Overview: No, Advance Directive brochure given to patient at prior appointment. documented as of this encounter (statuses as of 12/21/2023) Resolved Problems Problem Noted Date Diagnosed Date Resolved Date Cough due to RANDALL inhibitor 11/12/2014 0 01/30/2019 Hyperkalemia 11/12/2014 11/16/2018 Pre-operative cardiovascular examination 09/11/2014 11/12/2014 [employer] Other*[id number] 11/23/2012 10/27/2016 Overview: Study Title: Genomic Markers for Patients with Cardiovascular Disease Project # [id number] Tray Packer: Laine Cadena MD [phone] Abnormal stress echocardiogram 11/17/2012 01/30/2019 Impotence of organic origin 04/18/2008 11/16/2018 Chest pain 08/31/2006 01/30/2019 HIP & THIGH INJURY NOS 12/05/200401/30 Rosacea 02/23/2001 01/30/2019 Dyslipidemia, goal to be determined 08/29/2009 Overview: Per Lipid Taxonomy. HYPERTENSION NOS 08/08/2009 Overview: Modified per HTN protocol #16. documented as of this encounter (statuses as of 12/21/2023) Immunizations Name Administration Dates Next Due COVID-19 mRNA, LNP-s, No Pre serve, 2-Dose Series ([email or web address]) 01/01/2022,06/19/2021,11/25/2020,10/21 COVID-19, MRNA-LNP, 23-24, P F, 30 [...] Telephone Encounter - Michelle Cantrell OSA - 12/21/2023 11:24 AM EDT Spoke to pt, res'd to 02/28/24. * Telephone Encounter - Madina Leblanc RN - 12/21/2023 9:37 AM EDT Patient will need to have ECHO and follow up cardiology apt prior to colonoscopy. He is aware and will await call to reschedule from 12/23/2023 * Telephone Encounter - Madina Leblanc RN - 12/21/2023 9:05 AM EDT Attempted to call for pre anesthesia evaluation. No answer. Voice mail left requesting return call documented in this encounter Plan of Treatment Upcoming Encounters Date Type Department Care Team (Latest Contact Info) Description 01/11/2024 11:30 AM EDT Telemedicine Interventional Pain Center, [facility] [address] [place] [address] Lisandra Blankenship PA-C [address] [place] [address] 01/13/2024 10:30 AM EDT Office Visit Nephrology, Abilio Barber [address] [place] [address] Lois Mcclendon PA-C [address] [place] [address] 01/28/2024 8:30 AM EDT Imaging Cardiac Studies, [facility] [address] [place] [address] 02/16/2024 10:30 AM EDT Office Visit Cardiology, [facility] [address] [place] [address] Pennie Naranjo CRNP [address] [place] [address] 02/28/2024 1:45 PM EDT Hospital Encounter ENDO [facility], Endoscopy Room [facility] [address] [place] [phone] Belkis Arambula, DO [address] [place] [address] 02/28/2024 1:45 PM EDT - 02/28/2024 2:15 PM EDT Surgery ENDO [facility], Endoscopy Room [facility] [address] [place] [phone] Belkis Arambula, DO [address] [place] [address] COLONOSCOPY FLEXIBLE PROXIMAL DIAGNOSTIC 04/04/2024 11:40 AM EDT Office Visit Otolaryngology [facility] [address] [place] [address] Renata Garcia PA-C [address] [place] [address] 05/17/2024 3:20 PM EDT Office Visit Family Medicine [address] [place] [phone] Sabino Izaguirre MD [address] [place] [address] [place] [address] 11/17/2024 9:00 AM EST Nurse Only Ancillary [address] [place] [address] Veronica, Nurse Annual Wellness [address] [place] [address] [place] [address] Scheduled Procedures Name Priority Associated Diagnoses Date/Ti me COLONOSCOPY FLEXIBLE PROXIMAL DIAGNOSTIC History of colon polyps 02/28/2024 1:45 PM EDT Health Maintenance Due Date Last Done Comments COLONOSCOPY-EVERY 3 YRS AGES 18-100 06/05/2023 06/05/2020, 06/05/2020, 02/08/2017, Additional history exists Albumin/Creatinine Ratio 10/22/2023 10/22/2022, 09/0 04/2022 GFR 04/18/2024 10/19/2023, 06/20, 07/01/2023, Additional history exists CKD PHOS USE SMARTSET 09651 06/11/2024 06/11/2023 HbA1c 06/11/2024 06/11/2023, 09/0 04/2022, 04/02/2021, Additional history exists CKD HGB USE SMARTSET 57918 10/19/202410/19, 07/05/2023, 06/28/2023, Additional history exists Depression [...] this encounter Medical Devices Implanted Type Area Audio Visual Production Specialist Device Identifier Shelf Expiration Date Model / Serial / Lot Mesh Preshaped Large - [id number] Implanted:Qty : 1 on 12/31/2014 by Jj Weston MD at OR [facility] Right: Groin CR BARD : DAVOL 09/19/2018 [id number] / / [id number] Suture [place] Dbl Load 4.75mm - [id number] Implanted:Qty : 1 on 03/15/2020 by Kar Berry DO at OR [facility] Right: Shoulder [employer] 12/18/2021 [id number]-2324BCT- 2 / / [id number] documented as of this encounter Advance Directives Latest Code Status on File Code Status Date Activated Date Inactivated Comments Full Code 11/23/2012 8:27 PM 11/24/2012 8:07 PM This or emilia reflects the patients wishes and were consensually agreed upon. Question Answer Comments Discussion of Advance Directives occurred with: Patient/Family Care Teams Home Demonstration Agent Relationship Specialty Start Date End Date Sabino Izaguirre MD [address] [place] [address] [place] [address] PCP - General Family Medicine 01/21/21 documented as of this encounter
--- OUTSIDE RECORDS SUMMARY | 2024-02-04 04:58 | External Medical Summary | Summary of Care ---
Author Name Unknown Organization [facility] Address [address] [place] [address] Phone [phone] Care Team Providers Care High Energy Forming Equipment Operator Name Role Phone Milo Whittington MD Primary Care Provide r Reason for Visit * Reason Comments Medication Refill Encounter Details Date Type Department Care Team (Late st Contact Info) Description 11/03/2023 Refill Family Medicine [address] [phone] Milo Whittington MD [address] [place] [address] [place] [address] Allergies Active Allergy Reactions Criticality Noted Date Comments Enalapril Maleate Cough 11/12/2014 documented as of this encounter (statuses as of 11/17/2023) Medications Medication Sig Dispensed Refills Start Date End Date Status FISH OIL 1000 MG PO CAPSIndications:Dysl ipidemia, goal LDL below 160 one tablet twice daily 60 5 8 Active ASPIRIN 81 MG PO TABSIndications:S/P angioplasty with stent 1 tablets daily 30 Tab 11 3 Active Additional Information Patient taking differently: (No route reported), Reported on 09/25/2022 fluticasone (FLONASE) 50 MCG/ACT nasal spray Administer 2 Sprays into each nostril daily as needed for Allergies. 1 Inhaler 5 7 Active Multiple Vitamins TABS Take by mouth daily. 0 Active Docusate Sodium 100 MG Oral Capsule (Colace)Indications: Constipation, unspecified constipation type TAKE 1 CAPSULE BY MOUTH EVERY MORNING 90 Capsule 1 2 Active ProAir HFA 108 (90 Base) MCG/ACT Inhalation Aerosol SolutionIndications: Bronchitis, complicated Inhale 2 Puffs by mouth every 4 hours as needed for Wheezing. 18 g 2 3 Active amLODIPine Besylate 5 MG Oral Tablet (Norvasc)Indications :HTN, goal below 140/90 Take 1 Tablet by mouth 2 times a day. 180 Tablet 3 3 Active Spironolactone 25 MG Oral Tablet (Aldactone) TAKE 1 TABLET BY MOUTH IN THE MORNING 90 Tablet 3 3 03/01/20 24 Active Nitroglycerin 0.4 MG Sublingual Tablet Sublingual (Nitrostat)Indicatio ns:Coronary atherosclerosis of [place] coronary artery,Stable angina PLACE 1 TABLET UNDER THE TONGUE EVERY 5 MINUTES NEEDED FOR PAIN, CHEST 25 Tablet 5 3 02/29/20 24 Active Losartan Potassium 100 MG Oral Tablet (Cozaar) TAKE ONE TABLET BY MOUTH EVERY DAY IN THE MORNING 90 Tablet 3 3 02/11/20 24 Active Torsemide 5 MG Oral Tablet (Demadex)Indications :Chronic kidney disease, stage 3a (HCC) TAKE ONE TABLET BY MOUTH IN THE MORNING 90 Tablet 3 3 01/28/20 24 Active Gabapentin 100 MG Oral Capsule (Neurontin)Indicatio ns:Cervical radicular pain Take 1 Capsule by mouth in the morning and 1 Capsule at noon and 1 Capsule before bedtime. 270 Capsule 1 3 Active Additional Information Patient taking differently:100 mg Oral TID(AM/NOON/HS),Patient taking only at night currently, Reported on 11/15/2023 hydroCHLOROthiazide 25 MG Oral Tablet (Hydrodiuril)Indicat ions:HTN, goal below 140/90 Take 1 Tablet by mouth in the morning. 90 Tablet 3 3 Active Sildenafil Citrate 50 MG Oral Tablet TAKE ONE TABLET BY MOUTH 1 TO 4 HOURS BEFORE INTERCOURSE 4 Tablet 2 3 Active Clopidogrel Bisulfate 75 MG Oral Tablet (pLAVix)Indications: S/P angioplasty with stent TAKE ONE TABLET BY MOUTH IN THE MORNING 100 Tablet 1 3 Active Rosuvastatin Calcium 40 MG Oral Tablet (Crestor)Indications :Dyslipidemia, goal LDL below 70 TAKE ONE TABLET BY MOUTH IN THE MORNING 90 Tablet 1 4 10/15/19 25 Active Famotidine 20 MG Oral Tablet (Pepcid)Indications: Gastroesophageal reflux disease without esophagitis TAKE ONE TABLET BY MOUTH TWICE A DAY 180 Tablet 1 4 10/15/19 25 Active Pantoprazole Sodium 40 MG Oral Tablet Delayed Release (Protonix) TAKE ONE TABLET BY MOUTH EVERY DAY 100 Tablet 0 4 11/03/19 25 Active Metoprolol Succinate ER 25 MG Oral Tablet Extended Release 24 Hour (toPROL XL)Indications:Palpi tations,Stable angina Take 1 Tablet by mouth at bedtime. 90 Tablet 3 4 Active Pantoprazole Sodium 40 MG Oral Tablet Delayed Release (Protonix) TAKE ONE TABLET BY MOUTH EVERY DAY 100 Tablet 3 2 11/03/19 24 Discontinu ed(Refill) predniSONE 10 MG Oral Tablet (Deltasone)Indicatio ns:Contact dermatitis, unspecified contact dermatitis type, unspecified trigger Take 5 tabs for 2 days, 4 tabs for 2 days, 3 tabs for 2 days, 2 tabs for 2 days 1 tab for 2 days 30 Tablet 0 4 11/15/19 24 Discontinu ed(Medicat ion List Clean Up) Triamcinolone Acetonide 0.1 % External Cream (Aristocort)Indicati ons:Contact dermatitis, unspecified contact dermatitis type, unspecified trigger Apply topically to affected area 2 times a day. To affected area. 80 g 1 4 11/03/19 24 Discontinu ed(Refill) documented as of this encounter (statuses as [...] Impotence of organic origin 04/18/2008 Atherosclerosis of [place] co ronary artery of [place] heart with stable angina pectoris 01/01/2008 S/P [...] cardiovascular examination 09/11/2014 11/12/2014 [employer] Other*[id number] 11/23/2012 10/27/2016 Overview: Study Title: Genomic Markers for Patients with Cardiovascular Disease Project # [id number] Medical Sonographer: Laine Cadena MD [phone] Abnormal stress echocardiogram 11/17/2012 01/30/2019 Impotence of [...] mRNA, LNP-s, No Pre serve, 2-Dose Series ([employer]) 01/01/2022,06/19/2021,11/25/2020,10/21 COVID-19, MRNA-LNP, 23-24, P F, 30 [...] encounter Miscellaneous Notes * Telephone Encounter - Yuniel Hurley - 11/17/2023 12:32 AM EST Received message from [facility] regarding patient needing appointment. Patient was notified. Successfully contacted patient and provided [facility] message. * Telephone Encounter - Smooth Rudd [facility] - 11/04/2023 12:37 PM ESTSigned Prescriptions: Disp Refills Pantoprazole Sodium 40 MG Oral Tablet Maria Antonia*100 Ta*0 Sig: TAKE ONE TABLET BY MOUTH EVERY DAY Authorizing Provider: MILO WHITTINGTON Ordering User: SMOOTH RUDD * Telephone Encounter - Smooth Rudd [facility] - 11/04/2023 12:35 PM EST Pt had many acute visits within past year; however, is due for wellness visit. Please contact patient so that an appointment can be scheduled with his PRIMARY CARE provider. Refill authorized to hold patient over in the mean time. Last Visit: 10/21/2023 (in office) - acute visit, Visit date not found (telemedicine) Next Visit: Visit date not found Thank you, Smooth Rudd, PharmD Clinical Pharmacist [facility] (formerly Telepharm[facility]) [phone] 11/04/2023, 12:37 PM documented in this encounter Plan of Treatment Upcoming Encounters Date Type Department Care Team (Latest Contact Info) Description 11/17/2023 11:40 AM EST Office Visit Otolaryngology [facility] [address] [place] [address] Renata Garcia PA-C [address] [place] [address] 12/15/2023 2:00 PM EDT Hospital Encounter ENDO [facility], Endoscopy Room [facility] [address] [place] [phone] Marcellus Thompson MD [address] [place] [address] 12/15/2023 2:00 PM EDT - 12/15/2023 2:30 PM EDT Surgery ENDO [facility], Endoscopy Room [facility] [address] [place] [phone] Marcellus Thompson MD [address] [place] [address] COLONOSCOPY FLEXIBLE PROXIMAL DIAGNOSTIC 01/11/2024 11:30 AM EDT Telemedicine Interventional Pain Center, [facility] [address] [place] [address] Lisandra Blankenship PA-C [address] [place] [address] 01/13/2024 10:30 AM EDT Office Visit Nephrology, Abilio Barber [address] [place] [address] Lois Mcclendon PA-C [address] [place] [address] 01/28/2024 8:30 AM EDT Imaging Cardiac Studies, [facility] [address] [place] [address] 02/16/2024 10:30 AM EDT Office Visit Cardiology, [facility] [address] [place] [address] Pennie Naranjo CRNP [address] [place] [address] 05/17/2024 3:20 PM EDT Office Visit Family Medicine [address] [place] [phone] Milo Whittington MD [address] [place] [address] [place] [address] 11/17/2024 9:00 AM EST Nurse Only Ancillary [address] [place] [address] [place], Nurse Annual [address] [place] [address] Scheduled Procedures Name Priority Associated Diagnoses Date/Ti me COLONOSCOPY FLEXIBLE PROXIMAL DIAGNOSTIC Recall History of colon polyps 12/15/2023 2:00 PM EDT Health Maintenance Due Date Last Done Comments COLONOSCOPY-EVERY 3 YRS AGES 18-100 06/05/2023 06/05/2020, 06/05/2020, 02/08/2017, Additional history exists Albumin/Creatinine Ratio 10/22/2023 10/22/2022, 0 04/2022 GFR 04/18/2024 10/19/2023, 06/20, 07/01/2023, Additional history exists CKD PHOS USE SMARTSET 01920 06/11/2024 06/11/2023 HbA1c 06/11/2024 06/11/2023, 090 04/2022, 04/02/2021, Additional history exists CKD HGB USE SMARTSET 34676 10/19/202410/19, 07/05/2023, 06/28/2023, Additional history exists Depression [...] this encounter Medical Devices Implanted Type Area Golf Range Attendant Device Identifier Shelf Expiration Date Model / Serial / Lot Mesh Preshaped Large - [id number] Implanted:Qty : 1 on 12/31/2014 by Jj Weston MD at OR [facility] Right: Groin CR BARD : DAVOL 09/19/2018 [id number] / / [id number] Suture [place] Dbl Load 4.75mm - [id number] Implanted:Qty : 1 on 03/15/2020 by Kar Berry DO at OR [facility] Right: Shoulder [employer] 12/18/2021 AR-2324BCT- 2 / / [id number] documented as of this encounter Advance Directives Latest Code Status on File Code Status Date Activated Date Inactivated Comments Full Code 11/23/2012 8:27 PM 11/24/2012 8:07 PM This or emilia reflects the patients wishes and were consensually agreed upon. Question Answer Comments Discussion of Advance Directives occurred with: Patient/Family Care Teams High Energy Forming Equipment Operator Relationship Specialty Start Date End Date Milo Whittington MD [address] [place] [address] [place] [phone] PCP - General Family Medicine 01/21/21 documented as of this encounter
--- OUTSIDE RECORDS SUMMARY | 2024-02-04 04:58 | External Medical Summary | Summary of Care ---
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 Name Role Phone Milo Whittington MD Primary Care Provide r Reason for Visit * Reason Comments Medication Refill Encounter Details Date Type Department Care Team (Late st Contact Info) Description 01/03/2024 Refill Family Medicine [address] [phone] Ari Hartman [address] [place] [address] Contact dermatitis, unspecified contact dermatitis type, unspecified trigger Allergies Active Allergy Reactions Criticality Noted Date Comments Enalapril Maleate Cough 11/12/2014 documented as of this encounter (statuses as of 01/04/2024) Medications Medication Sig Dispensed Refills Start Date [...] Sublingual Tablet Sublingual (Nitrostat)Indicatio ns:Coronary atherosclerosis of pechanga coronary artery,Stable angina (HCC) PLACE 1 TABLET [...] IN THE MORNING 90 Tablet 3 3 04/13/20 24 Active Gabapentin 100 MG Oral Capsule [...] Release 24 Hour (toPROL XL)Indications:Palpi tations,Stable angina (HCC) Take 1 Tablet by mouth at bedtime. 90 Tablet 3 4 Active predniSONE 20 MG Oral Tablet (Deltasone)Indicatio ns:Itching 2 tablets daily for 5 days then 1 tablet daily 15 Tablet 0 4 Active Cetirizine HCl 10 MG Oral Tablet (ZyrTEC Allergy)Indications: Itching Take 1 Tablet by mouth every night at bedtime. 90 Tablet 2 4 Active Triamcinolone Acetonide 0.1 % External Cream (Aristocort)Indicati ons:Contact dermatitis, unspecified contact dermatitis type, unspecified trigger Apply topically to affected area 2 times a day. To affected area. 80 g 1 4 Active Triamcinolone Acetonide 0.1 % External Cream (Aristocort)Indicati ons:Contact dermatitis, unspecified contact dermatitis type, unspecified trigger Apply topically to affected area 2 times a day. To affected area. 80 g 0 4 01/03/20 24 Discontinu ed(Refill) documented as of this encounter (statuses as of 01/04/2024) Active Problems Problem Noted Date Diagnosed Date [...] Impotence of organic origin 04/18/2008 Atherosclerosis of pe[place]anga co ronary artery of pechanga heart with stable angina pectoris 01/01/2008 S/P angioplasty with stent 06/30/2006 Esophageal reflux 10/29/2005 ADVANCE DIRECTIVE INFORMATION 08/21/2005 Overview: No, Advance Directive brochure given to patient at prior appointment. documented as of this encounter (statuses as of 01/04/2024) Resolved Problems Problem Noted Date Diagnosed Date Resolved Date Cough due to RANDALL inhibitor 11/12/2014 0 01/30/2019 Hyperkalemia 11/12/2014 11/16/2018 Pre-operative cardiovascular examination 09/11/2014 11/12/2014 [employer] Other*[id number] 11/23/2012 10/27/2016 Overview: Study Title: Genomic Markers for Patients with Cardiovascular Disease Project # [id number] Trash Man: Laine Cadena MD [phone] Abnormal stress echocardiogram 11/17/2012 01/30/2019 Impotence of organic origin 04/18/2008 11/16/2018 Chest pain 08/31/2006 01/30/2019 HIP & THIGH INJURY NOS 12/05/200401/30 Rosacea 02/23/2001 01/30/2019 Dyslipidemia, goal to be determined 08/29/2009 Overview: Per Lipid Taxonomy. HYPERTENSION NOS 08/08/2009 Overview: Modified per HTN protocol #16. documented as of this encounter (statuses as of 01/04/2024) Immunizations Name Administration Dates Next Due COVID-19 mRNA, LNP-s, No Pre serve, 2-Dose Series ([employer]) 01/01/2022,06/19/2021,11/25/2020,10/21 COVID-19, MRNA-LNP, 23-24, P F, 30 [...] encounter Miscellaneous Notes * Telephone Encounter - Milo Whittington MD - 01/04/2024 10:59 AM EDT Signed Prescriptions: Disp Refills Triamcinolone Acetonide 0.1 % External Cre*80 g 1 Sig: Apply topically to affected area 2 times a day. To affected area. Authorizing Provider: MILO WHITTINGTON * Telephone Encounter - Oma Guajardo RN - 01/04/2024 6:54 AM EDTPending Prescriptions: Disp Refills Triamcinolone Acetonide 0.1 % External Cre*80 g 1 Sig: Apply topically to affected area 2 times a day. To affected area. * Telephone Encounter - Oma Guajardo RN - 01/04/2024 6:54 AM EDT Pending Prescriptions: Disp Refills Triamcinolone Acetonide 0.1 % External Cr*80 g 0 Sig: Apply topically to affected area 2 times a day. To affected area. 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 ([facility]) I25.118 HTN, GOAL BELOW 140/90 I10 Dyslipidemia, goal LDL below 70 E78.5 Nodule of left lung R91.1 Stable angina ([facility]) I20.89 Hiatal hernia K44.9 Ascending aorta dilation ([facility]) I77.810 Impotence of organic origin N52.9 Prediabetes R73.03 Hx of actinic keratosis Z87.2 Chronic right shoulder pain M25.511, G89.29 Chronic neck pain M54.2, G89.29 Chronic kidney disease, stage 3a ([facility]) N18.31 DDD (degenerative disc disease), cervical M50.30 Labs: Lab Results Component Value Date/Time CREATININE - [facility] 1.4 (H) 10/19/2023 12:25 PM CREATININE - [facility] 1.2 04/22/2020 03:50 PM CREATININE, 24 HOUR URINE DNRTNP 10/04/2023 11:15 AM CREATININE, RANDOM URINE - [facility] 98 10/22/2022 02:34 PM CREATININE-OUTSIDE LAB 1.34 (A) 07/05/2023 12:00 AM Lab Results Component Value Date/Time POTASSIUM - [facility] 5.0 10/19/2023 12:25 PM POTASSIUM - [facility] 4.2 04/22/2020 03:50 PM POTASSIUM, 24 HOUR URINE DNRTNP 10/04/2023 11:15 AM POTASSIUM-OUTSIDE LAB 4.0 07/05/2023 12:00 AM Lab Results Component Value Date/Time TSH - [facility] 1.14 03/30/2022 08:55 AM TSH - [facility] 0.70 11/25/2018 01:09 PM Lab Results Component Value Date/Time LDL CHOLESTEROL (CALCULATED) - [facility] 60 03/30/2022 08:55 AM LDL CHOLESTEROL (CALCULATED) - [facility] 51 04/02/2021 12:30 PM LDL CHOLESTEROL (CALCULATED) - [facility] 51 10/03/2018 02:32 PM LDL CHOLESTEROL (CALCULATED) - [facility] 61 02/11/2018 08:02 AM LDL CHOLESTEROL (DIRECT MEASURE) - [facility] 71 10/19/2023 12:25 PM LDL CHOLESTEROL (DIRECT MEASURE) - [facility] NOT APPLICABLE 10/03/2018 02:32 PM LDL CHOLESTEROL (DIRECT MEASURE) - [facility] NOT APPLICABLE 02/11/2018 08:02 AM LDL CHOLESTEROL (DIRECT MEASURE) - [facility] 157 (H) 10/26/2012 09:43 AM LDL CHOLESTEROL (DIRECT MEASURE) - [facility] 117 06/30/2011 02:45 PM Lab Results Component Value Date/Time ALT - [facility] 32 10/19/2023 12:25 PM ALT - [facility] 28 04/22/2020 03:50 PM Hemoglobin AIC Results: Lab Results Component Value Date/Time HEMOGLOBIN A1C - [facility] 5.4 06/11/2023 11:06 AM HEMOGLOBIN A1C - [facility] 5.7 (H) 05/28/2022 02:03 PM HEMOGLOBIN A1C - [facility] 5.7 (H) 04/02/2021 12:30 PM HEMOGLOBIN A1C - [facility] 5.8 (H) 04/25/2020 09:14 AM HEMOGLOBIN A1C - [facility] 5.6 11/23/2012 01:40 PM * Telephone Encounter - Valeri Hurley - 01/04/2024 4:40 AM EDTPending Prescriptions: Disp Refills Triamcinolone Acetonide 0.1 % External Cre*80 g 0 Sig: Apply topically to affected area 2 times a day. To affected area. documented in this encounter Plan of Treatment Upcoming Encounters Date Type Department Care Team (Latest Contact Info) Description 01/10/2024 11:00 AM EDT Telemedicine Interventional Pain Center, [facility] [address] [place] [address] Lisandra Blankenship PA-C [address] [place] [address] 01/13/2024 10:30 AM EDT Office Visit Nephrology, [facility] [address] [place] [address] ZemaLois hermosillo PA-C [address] [place] [address] 01/28/2024 8:30 AM EDT Imaging Cardiac Studies, [facility] [address] [place] [address] 02/16/2024 10:30 AM EDT Office Visit Cardiology, [facility] [address] [place] [address] Pennie Naranjo CRNP [address] [place] [address] 02/21/2024 2:40 PM EDT Office Visit Dermatology [address] [place] [address] Kassi Pool PA-C [address] [place] [address] [place] [address] 02/28/2024 1:45 PM EDT Hospital Encounter [facility]O [facility], Endoscopy Room [facility] [address] [place] [phone] Belkis Arambula DO [address] [place] [address] 02/28/2024 1:45 PM EDT - 02/28/2024 2:15 PM EDT Surgery ENDO [facility], Endoscopy Room [facility] [address] [place] [phone] Belkis Arambula, [address] [place] [address] COLONOSCOPY FLEXIBLE PROXIMAL DIAGNOSTIC 04/04/2024 11:40 AM EDT Office Visit Otolaryngology [facility] [address] [place] [address] Renata Garcia PA-C [address] [place] [address] 05/17/2024 3:20 PM EDT Office Visit Family Medicine [address] [place] [phone] Milo Whittington MD [address] [place] [address] [place] [address] 11/17/2024 9:00 AM EST Nurse Only Ancillary [address] [place] [address] [place], Nurse Annual [address] [place] [address] Scheduled Procedures Name Priority Associated Diagnoses Date/Ti me COLONOSCOPY FLEXIBLE PROXIMAL DIAGNOSTIC History of colon polyps 02/28/2024 1:45 PM EDT Health Maintenance Due Date Last Done Comments COLONOSCOPY-EVERY 3 YRS AGES 18-100 06/05/2023 06/05/2020, 06/05/2020, 02/08/2017, Additional history exists Albumin/Creatinine Ratio 10/22/2023 10/22/2022, 04/2022 GFR 04/18/2024 10/19/2023, 06/20, 07/01/2023, Additional history exists CKD PHOS USE SMARTSET 97204 06/11/2024 06/11/2023 HbA1c 06/11/2024 06/11/2023, 04/2022, 04/02/2021, Additional history exists CKD HGB USE SMARTSET 46258 10/19/202410/19, 07/05/2023, 06/28/2023, Additional history exists Depression [...] this encounter Medical Devices Implanted Type Area Sorter Packer Device Identifier Shelf Expiration Date Model / Serial / Lot Mesh Preshaped Large - [id number] Implanted:Qty : 1 on 12/31/2014 by Jj Weston MD at OR [facility] Right: Groin CR BARD : DAVOL 09/19/2018 [id number] / / [id number] Suture [place] Dbl Load 4.75mm - [id number] Implanted:Qty : 1 on 03/15/2020 by Kar Berry DO at OR [facility] Right: Shoulder [employer] 12/18/2021 [id number] / / [id number] documented as of this encounter Visit Diagnoses Diagnosis Contact dermatitis, unspecified contact dermatitis type, unspecified trigger History of colon polyps Personal history of colonic polyps documented in this encounter Advance Directives Latest Code Status on File Code Status Date Activated Date Inactivated Comments Full Code 11/23/2012 8:27 PM 11/24/2012 8:07 PM This or emilia reflects the patients wishes and were consensually agreed upon. Question Answer Comments Discussion of Advance Directives occurred with: Patient/Family Care Teams Windows Server Engineer Relationship Specialty Start Date End Date Milo Whittington MD [address] [place] [address] [place] [phone] PCP - General Family Medicine 01/21/21 documented as of this encounter
--- OUTSIDE RECORDS SUMMARY | 2024-02-04 04:59 | External Medical Summary | Summary of Care ---
Author Name Unknown Organization [facility] [address] [address] Phone [phone] Care Team Providers Care Stitcher Around Name Role Phone Sabino Izaguirre MD Primary Care Provide r Reason for Visit * Reason Comments Adult Annual Wellness Visit, Subsequent Visit Encounter Details Date Type Department Care Team (Late st Contact Info) Description 11/15/2023 2:00 PM EST Nurse Only Ancillary [address] [place] [id number] [place], Nurse [address] [place] [id number] Adult Annual Wellness Visit, Subsequent Visit Allergies Active Allergy Reactions Criticality Noted Date Comments Enalapril Maleate Cough 11/12/2014 documented as of this encounter (statuses as of 11/15/2023) Medications Medication Sig Dispensed Refills Start Date [...] Sublingual Tablet Sublingual (Nitrostat)Indicatio ns:Coronary atherosclerosis of [place] coronary artery,Stable angina PLACE 1 TABLET UNDER [...] at bedtime. 90 Tablet 3 4 Active Triamcinolone Acetonide 0.1 % External Cream (Aristocort)Indicati ons:Contact dermatitis, unspecified contact dermatitis type, unspecified trigger Apply topically to affected area 2 times a day. To affected area. 80 g 0 4 Active predniSONE 10 MG Oral Tablet (Deltasone)Indicatio ns:Contact dermatitis, unspecified contact dermatitis type, unspecified trigger Take 5 tabs for 2 days, 4 tabs for 2 days, 3 tabs for 2 days, 2 tabs for 2 days 1 tab for 2 days 30 Tablet 0 4 11/15/19 24 Discontinu ed(Medicat ion List Clean Up) documented as of this encounter (statuses as of 11/15/2023) Active Problems Problem Noted Date Diagnosed Date [...] Impotence of organic origin 04/18/2008 Atherosclerosis of [place] co ronary artery of [place] heart with stable angina pectoris 01/01/2008 S/P angioplasty with stent 06/30/2006 Esophageal reflux 10/29/2005 ADVANCE DIRECTIVE INFORMATION 08/21/2005 Overview: No, Advance Directive brochure given to patient at prior appointment. documented as of this encounter (statuses as of 11/15/2023) Resolved Problems Problem Noted Date Diagnosed Date Resolved Date Cough due to RANDALL inhibitor 11/12/2014 0 01/30/2019 Hyperkalemia 11/12/2014 11/16/2018 Pre-operative cardiovascular examination 09/11/2014 11/12/2014 [employer] Other*[id number] 11/23/2012 10/27/2016 Overview: Study Title: Genomic Markers for Patients with Cardiovascular Disease Project # [id number] Spray Operator: Laine Cadena MD [phone] Abnormal stress echocardiogram 11/17/2012 01/30/2019 Impotence of organic origin 04/18/2008 11/16/2018 Chest pain 08/31/2006 01/30/2019 HIP & THIGH INJURY NOS 12/05/200401/30 Rosacea 02/23/2001 01/30/2019 Dyslipidemia, goal to be determined 08/29/2009 Overview: Per Lipid Taxonomy. HYPERTENSION NOS 08/08/2009 Overview: Modified per HTN protocol #16. documented as of this encounter (statuses as of 11/15/2023) Immunizations Name Administration Dates Next Due COVID-19 mRNA, LNP-s, No Pre serve, 2-Dose Series ([employer]) 01/01/2022,06/19/2021,11/25/2020,10/21 COVID-19, MRNA-LNP, 23-24, P F, 30 MCG/0.3 mL, 12 YRS AND ABOVE, IM ([facility] 10/19/2023 H1N1 2009 Influenza, IM 09/24/2009 Pneumococcal [...] Date Recorded PHQ Adult Total Score 0 11/11/2022 Hunger Vital Sign Answer Date Recorded Within the past 12 months, y ou worried that your food would run out before you got the money to buy more. Never true 11/11/19 23 Within the past 12 months, t he food you bought just didn't last and you didn't have money to get more. Never true 11/11/2022 Sex and Gender Information Value Date Recorded Sex Assigned at Male 01/30/2019 9:59 AM EDT Gender Identity Male 01/30/2019 9:59 AM EDT Sexual Orientation Straight 01/30/2019 9: 59 AM EDT Job Start Date Occupation Industry Not on file Not on file Not on file documented as of this encounter Last Filed Vital Signs Vital Sign Reading Time Taken Comments Blood Pressure 104/70 11/15/2023 1:56 PM EST Pulse 76 11/15/2023 1:56 PM EST Temperature 36.1 C (96.9 F) 11/15/2023 1:56 PM ES T Respiratory Rate - - Oxygen Saturation 95% 11/15/2023 1:56 PM EST Inhaled Oxygen Concentration - - Weight 97.9 kg (215 lb 12.8 oz) 11/15/2023 1:56 PM EST Height 175.3 cm (5' 9") 11/15/2023 1:56 PM EST Body Mass Index 31.87 11/15/2023 1:56 PM EST documented in this encounter Patient Instructions * Patient Instructions* Patrica Van RN - 11/15/2023 1:54 PM EST Patient Instructions - Fall Prevention (This education is for all patients over 65 regardless of symptoms) Remember to take your current medications as prescribed. In order to prevent falls, you are encouraged to: Exercise Utilize assistive/adaptive devices Avoid multifocal lenses when walking Avoid hazards in home Maintain a regular toileting schedule Any questions please contact our office. Preventing Falls in the Home (This education is for all patients over 65 regardless of symptoms) As you get older, falls are more likely. Thats because your reaction time slows. Your muscles and joints may also get stiffer, making them less flexible. Illness, medications, and vision changes can also affect your balance. A fall could leave you unable to live on your own. To make your home safer, follow these tips: Floors Put nonskid pads under area rugs Remove throw rugs Replace worn floor coverings Tack carpets firmly to each step on carpeted stairs. Put nonskid strips on the edges of uncarpeted stairs Keep floors and stairs free of clutter and cords Arrange furniture so there are clear pathways Clean up any spills right away Bathrooms Install grab bars in the tub or shower Apply nonskid strips or put a nonskid rubber mat in the tub or shower Sit on a bath chair to bathe Use bathmats with nonskid backing Lighting Keep a flashlight in each room Put a nightlight along the pathway between the bedroom and the bathroom Karol Patient Education Copyright 2008 - 2010 Karol except where otherwise noted Preventing Falls: Exercises to Improve Balance, Flexibility, Strength, and Staying Power (This education is for all patients over 65 regardless of symptoms) Certain types of exercises may help make you less likely to fall. Try the ones below. Or do other exercises that your healthcare provider suggests. Depending on your health, you may need to start slowly. Dont let that stop you. Even small amounts of exercise can help you. Be sure to talk to yourhealthcare provider before starting any exercise program. Improve Balance Many types of exercise can help improve balance. Seamus chi and yoga are good examples. Heres another one to try. You can do it anytime and almost anywhere. Stand next to a counter or solid support. Push yourself up onto your tiptoes. Hold for 5 seconds. If you start to lose your balance, hold on to the counter. Rest and repeat 5 times. Work up to holding for 20 to 30 seconds, if you can. Increase Flexibility Being more flexible makes it easier for you to move around safely. Try exercises like the seated hamstring stretch. Sit in a chair and put one foot on a stool. Straighten your leg and reach with both hands down either side of your leg. Reach as far down your leg as you can. Hold for about 20 seconds. Go back to the starting position. Then repeat 5 times. Switch legs. Build Strength Resistance exercises help build strength. You can do them without equipment. Or you can use weights, elastic bands, or special machines. One such exercise is called the biceps curl. You can hold a 1 pound weight or even a can of soup. Do this exercise at least 3 times a week. Strive for everyday. Sit up straight in a chair. Keep your elbow close to your body and your wrist straight. Bend your arm, moving your hand up to your shoulder. Then slowly lower your arm. Repeat 5 times. Switch to the other arm. Build Your Staying Power Aerobic exercises make your heart and lungs stronger so you can keep moving longer. Walking and swimming are two of the best types of exercises you can do. Using a stationary bike is great, too. Find an aerobic exercise that you enjoy. Start slowly and build up. Even 5 minutes is helpful. Aimfor a goal of 30 minutes, at least 3 times a week. You dont have to do 30 minutes in one session. Break it up and walk a little throughout the day. More Helpful Tips Start easy. Slowly work up to doing more. Talk with your healthcare provider about the best exercises for you. Call senior centers or health clubs about exercise programs. If needed, have a family member watch you walk every so often to check your stability. Exercise with a friend. Choose an activity you both enjoy. Try exercises that you can do anytime, anywhere. Here are two examples. Have someone with you when you first try these: Practice walking by placing one foot right in front of the other. Stand up and sit down 10 times. Repeat this throughout the day. Karol Patient Education Copyright 2008 - 2010 Karol except where otherwise noted. Preventing Falls: Moving Safely Using a Cane or Walker (This education is for all patients over 65 regardless of symptoms) Keep the cane away from your feet so you dont trip. A walking aid, such as a cane or walker, can help you stay more independent and avoid falls. Remember to keep your walking aid within easy reach when youre in a chair or in bed. And learn how to use it safely so you dont injure yourself. Using a Cane If you have a stronger side, hold the cane on that side. Get your balance. Move the cane and your weaker leg forward. Support your weight on both the cane and your weaker side. Step with your stronger leg. Start again from step 1. If youre using a folding walker, be sure you know how to lock it open. Check that its locked open before each use. Using a Walker Roll the walker (or lift it, if youre using one without wheels) forward about 12 inches. Step forward with your weaker leg first. Use the walker to help keep your balance. Bring your other foot forward to the center of the walker. Start again from step 1. Helpful Tips Check with your healthcare provider about the right walking aid to use. Ask about a walker with a seat attached. Check the tips of your cane or walker to make sure they have nonskid covers. Move slowly from room to room. Dont john. Sit down to get dressed. Use a magdy pack or backpack to keep your hands free. Get help for jobs that mean climbing, even on a stepstool. [employer] Patient Education Copyright 2008 - 2010 Karol except where otherwise noted. Treating Urinary Incontinence in Men (This education is for all patients over 65 regardless of symptoms) You can't always control the release of urine. You may leak urine. Or you may not be able to hold your urine until you can get to a bathroom. This is called urinary incontinence. The problem can be managed. Talk to your doctor about your treatment options. Taking Medications Prescription medications may help you. They may: Help the sphincter to work better. (This is the muscle that closes to keep urine from leaking out of the bladder.) Help stop the bladder from mono too often to push urine out. Help the bladder muscles contract with more force. Help relax the sphincter muscle and allow urine to flow more freely. Making Changes to Your Routine Certain changes in your daily routine may help. These include: Avoiding caffeine and alcohol. Using timed voiding. This is following a schedule for drinking fluids and urinating. Doing Kegel exercises daily. These exercises involve tightening the muscles in your sphincter and around your bladder to help strengthen them. Your doctor can explain how to do them. Using a Catheter A catheter is a narrow tube that is inserted through the urethra into the bladder. It drains urine.A condom catheter covers the penis. It channels urine into a collection bag. It is worn most of thetime. Intermittent catheterization means inserting a catheter to drain the bladder, then removing it. This is done on a regular schedule. Having Surgery If other options don't work, surgery may be recommended. If surgery is an option, your healthcare provider can discuss it with you and explain its risks and benefits. Healing After Prostate Surgery Surgery on the prostate gland can cause incontinence. Most often, the incontinence is only for a short time. It clears up when healing is complete. Very rarely, prostate surgery can result in permanent incontinence. Hi Mr. Shaw, As your primary care physician, I know that regular visits with my patients who have several chronic conditions can go a long way in helping you stay healthy. Many times, the clinic team and I are in touch with you and/or other care team members between office visits to adjust medications, discuss any changes in your health, and review our care plan to make sure it is still meeting your needs. I am dedicated to helping you take a more active role in your overall care. It is important that there are resources available to you, so I created a personalized plan of care with a Health Calendar for you, which is included on the next page of this letter. Below is a list that summarizes your electronic health record: Health Maintenance Due: Health Maintenance Due Topic Date Due COLONOSCOPY-EVERY 3 YRS AGES 18-100 06/05/2023 Albumin/Creatinine Ratio 10/22/2023 Depression Screening 11/11/2023 Current Medication List: (as of Visit date not found (in office), Visit date not found (telemedicine) ) Current Outpatient Medications Medication Sig Dispense Refill [...] by mouth 2 times a day. 180 Tablet3 Spironolactone 25 MG Oral Tablet (Aldactone) TAKE 1 TABLET BY MOUTH IN THE MORNING 90 Tablet 3 Nitroglycerin 0.4 MG Sublingual Tablet Sublingual (Nitrostat) PLACE 1 TABLET UNDER THE TONGUE EVERY 5 MINUTES NEEDED FOR PAIN, CHEST 25 Tablet 5 Losartan Potassium 100 MG Oral Tablet (Cozaar) TAKE ONE TABLET BY MOUTH EVERY DAY IN THE MORNING 90 Tablet 3 Torsemide 5 MG Oral Tablet (Demadex) TAKE ONE TABLET BY MOUTH IN THE MORNING 90 Tablet 3 hydroCHLOROthiazide 25 MG Oral Tablet (Hydrodiuril) Take 1 Tablet by mouth in the morning. 90 Tablet 3 Clopidogrel Bisulfate 75 MG Oral Tablet (pLAVix) TAKE ONE TABLET BY MOUTH IN THE MORNING 100 Tablet 1 Rosuvastatin Calcium 40 MG Oral Tablet (Crestor) TAKE ONE TABLET BY MOUTH IN THE MORNING 90 Tablet 1 Famotidine 20 MG Oral Tablet (Pepcid) TAKE ONE TABLET BY MOUTH TWICE A DAY 180 Tablet 1 Pantoprazole Sodium 40 MG Oral Tablet Delayed Release (Protonix) TAKE ONE TABLET BY MOUTH EVERYDAY 100 Tablet 0 Metoprolol Succinate ER 25 MG Oral Tablet Extended Release 24 Hour (toPROL XL) Take 1 Tablet bymouth at bedtime. 90 Tablet 3 Triamcinolone Acetonide 0.1 % External Cream (Aristocort) Apply topically to affected area 2 times a day. To affected area. 80 g 0 Gabapentin 100 MG Oral Capsule (Neurontin) Take 1 Capsule by mouth in the morning and 1 Capsuleat noon and 1 Capsule before bedtime. (Patient taking differently: Take 1 Capsule by mouth in the morning and 1 Capsule at noon and 1 Capsule before bedtime. Patient taking only at night currently.) 270 Capsule 1 Sildenafil Citrate 50 MG Oral Tablet TAKE ONE TABLET BY MOUTH 1 TO 4 HOURS BEFORE INTERCOURSE 4Tablet 2 No current facility-administered medications for this visit. Current List of Allergies: (as of Visit date not found (in office), Visit date not found (telemedicine) ) Review of patient's allergies indicates: Allergen Reactions Enalapril Maleate Cough Most Recent Lab Results: Results for orders placed or performed in visit on 10/19/23 COMPREHENSIVE METABOLIC PANEL Result Value Ref Range BUN 25 (H) 6 - 20 mg/dL Creatinine 1.4 (H) 0.6 - 1.2 mg/dL Estimated Glomerular Filtration Rate 55 (L) >=60 mL/min Sodium 140 135 - 146 mmol/L Potassium 5.0 3.5 - 5.1 mmol/L Chloride 104 98 - 107 mmol/L CO2 26 22 - 32 mmol/L Anion Gap 10 7 - 15 mmol/L Glucose 100 70 - 120 mg/dL Albumin 4.6 3.8 - 5.0 g/dL AST 25 10 - 50 U/L Alkaline Phosphatase 65 35 - 130 U/L Bilirubin, Total 0.4 <=1.2 mg/dL Calcium 9.7 8.4 - 10.2 mg/dL Protein 7.0 6.0 - 8.3 g/dL ALT 32 10 - 50 U/L LIPID PANEL WITH DIRECT LDL IF TG IS HIGH Result Value Ref Range Triglycerides 220 (H) <=174 mg/dL Cholesterol 145 <200 mg/dL HDL Cholesterol 37 (L) >39 mg/dL Non-HDL Cholesterol 108 <=159 mg/dL CBC Result Value Ref Range WBC 8.59 4.00 - 10.80 K/uL RBC 4.74 4.50 - 5.25 M/uL HGB 14.2 14.0 - 16.8 g/dL HCT 43.0 40.0 - 48.4 % MCV 90.7 82.0 - 99.5 fL MCH 30.0 27.0 - 34.0 pg MCHC 33.0 32.0 - 36.0 g/dL RDW 12.9 11.5 - 15.5 % PLT 283 140 - 400 K/uL MPV 12.0 6.6 - 11.1 fL nRBCs 0 <=0 /100 WBCs MAGNESIUM Result Value Ref Range Magnesium 2.2 1.5 - 2.6 mg/dL VITAMIN B12 Result Value Ref Range Vitamin B12 754 232 - 1,245 pg/mL LDL CHOLESTEROL (DIRECT MEASURE) Result Value Ref Range LDL Cholesterol (Direct Measure) 71 <=129 mg/dL *Note: Due to a large number of results and/or encounters for the requested time period, some results have not been displayed. A complete set of results can be found in Results Review. Sincerely, Sabino Izaguirre MD 11/15/2023 [facility] Calendar (as of Visit date not found (in office), Visit date not found (telemedicine) ) Care needs Care needs Last completed Due next Colonoscopy - every 3 years 06/05/2020 06/05/2023 Urine albumin/creatinine test 10/22/2022 10/22/2023 Kidney Function Test 10/19/2023 04/18/2024 A1C blood sugar test 06/11/2023 06/11/2024 Diphtheria, tetanus & pertussis vaccines (4 - Td or Tdap) 06/12/2023 06/12/2033 As you look over the recommended services, be sure to check with your insurance company to determine what's covered. [employer] is a great tool that helps you review your medical record online, including test results, doctor notes and your health summary. You can also schedule appointments with me and other members of your care team, request prescription refills and ask for advice related to your medical conditions at [email or web address]. documented in this encounter Progress Notes * Patrica Van RN - 11/15/2023 1:58 PM EST AD8 Dementia Screening Interview Person answering questions: patient Remember, "Yes, a change" indicates that there has been a change in the last several years caused by cognitive (thinking and memory) problems 1. Problems with judgement (eg: problems making decisions, bad financial decisions, problems with thinking). No (0) 2. Less interest in hobbies/activities. No (0) 3. Repeats the same things over and over (questions, stories, or statements). No (0) 4. Trouble learning how to use a tool, appliance, or gadget (eg: VCR, computer, microwave, remote control). No (0) 5. Forgets correct month or year. No (0) 6. Trouble handling complicated financial affairs (eg: balancing checkbook, income taxes, paying bills). No (0) 7. Trouble remembering appointments. No (0) 8. Daily problems with thinking and/or memory. No (0) TOTAL AD8: 0 - AD8 Dementia Screening Score The final score is a sum of the number items marked "Yes, A Change". 0 - 1: Normal cognition; 2 or greater: Cognitive impairments is likely to be present - further testing required Adult Annual Wellness Visit: Enzo Shaw is a 67 year old male who presents for an Adult Annual Wellness Visit. Depression Screening: Did the patient complete the screening questionnaire for Depression? Yes Is the patient's total score for Depression 15 or greater? No, no further intervention needed, unless requested by patient. Did the patient answer positively to the suicide question? No, no further intervention needed, unless requested by patient. In general, compared to other people your age, what would you say that your health is? Good Ht Readings from Last 1 Encounters: 11/15/23 1.753 m (5' 9") Wt Readings from Last 1 Encounters: 11/15/23 97.9 kg (215 lb 12.8 oz) Body Mass Index: BMI Greater than 30 Body mass index is 31.87 kg/m. BP Readings from Last 1 Encounters: 11/15/23 104/70 Medical/Surgical/Family History Reviewed: Yes Past Medical History: Diagnosis Date Abnormal stress echocardiogram 11/17/2012 Calculus of kidney Coronary atherosclerosis of [place] coronary artery 01/01/2008 Cough due to RANDALL inhibitor 11/12/2014 Dyslipidemia, goal to be determined GERD (gastroesophageal reflux disease) HTN, goal to be determined Impotence of organic origin 04/18/2008 Rosacea S/P angioplasty with stent 09/10/05 Circumflex Past Surgical History: Procedure Laterality Date ARTHO,SHOUL,W/ROTATOR CUFF Right 03/15/2020 ARTHROSCOPY SHOULDER ROTATOR CUFF performed by Kar Berry DO at OR [facility] CARDIAC ANGIOPLASTY, PERCUTANEOUS, 1 ARTERY 11/23/2012 PTCA, CARDIAC ANGIOPLASTY, PERCUTANEOUS, 1 ARTERY performed by Roc Wilkinson MD [facility] COLONOSCOPY, DIAGNOSTIC (RECTUM) 08/07/2011 few diverticula COLONOSCOPY, DIAGNOSTIC (RECTUM) 02/08/2017 adenomatous & hyperplastic polyps, diverticulosis, repeat 3 yrs/COLONOSCOPY FLEXIBLE PROXIMAL DIAGNOSTIC performed by Pedro Mejia MD at ENDOSCOPY [facility] COLONOSCOPY, DIAGNOSTIC (RECTUM) 06/05/2020 hyperplastic polyp, repeat 1 yr / COLONOSCOPY FLEXIBLE PROXIMAL DIAGNOSTIC performed by Belkis Arambula DO at ENDOSCOPY [facility] CORONARY ANGIOGRAPHY W/LEFT HEART CATH 09/27/2013 CORONARY ANGIOGRAPHY W/LEFT HEART CATH performed by Yaneth Canada MD at [facility] EGD, FLEXIBLE, W/BIOPSY 04/22/2007 GERD INJECT DX/THER SUBSTANCE INTERLAMINAR CERVICAL/THORACIC W IMAGE GUIDE 10/19/2022 INJECTION SPINE LUMBAR CERVICAL OR THORACIC performed by Leif Bass DO at OR [facility] INJECT DX/THER SUBSTANCE INTERLAMINAR CERVICAL/THORACIC W IMAGE GUIDE 02/04/2023 INJECTION SPINE LUMBAR CERVICAL OR THORACIC performed by Leif Bass DO at OR [facility] OTHER (INFORMATION) 1983 hernia repair- left inguinal REMOVE TONSILS & ADENOIDS, UNDER 12 REPAIR INITIAL INGUINAL HERNIA REDUCIBLE AGE 5 OR MORE Right 12/31/2014 12/31/2014 - - right REPAIR INITIAL INGUINAL HERNIA REDUCIBLE AGE 5 OR MORE performed by Jj Weston MD at OR [facility] REPAIR OF NASAL SEPTUM SHOULDER ARTHROSCOPY SURGERY Right 03/15/2020 ARTHROSCOPY SHOULDER DISTAL CLAVICLE RESECTION performed by Kar Berry DO at OR [facility] SHOULDER ARTHROSCOPY/DECOMPRESSION Right 03/15/2020 ARTHROSCOPY SHOULDER SUBACROMIAL DECOMPRESSION performed by Kar Berry DO at OR [facility] UMBIL HERNIA REPAIR (INCARCERATED) AGE 5+YR N/A 09/17/2014 09/17/2014 REPAIR UMBILICAL HERNIA AGE 5 OR OVER INCARCERATED performed by Jj Weston MD at [facility] Family History Problem Relation Age of Onset Hypertension Mother Heart Disorder Mother NE 60's Hypertension Father Heart Disorder Father NE 50's Heart Disorder Brother Heart Disorder Brother Cancer Brother colon Allergies Son Allergies Son Other (Other) Son pt denies hx of skin cancer for parents Neurological Disorder Daughter 40 ?MS Has patient ever had cancer? No Social History Tobacco Use Smoking status: Never Smokeless tobacco: Never Substance Use Topics Alcohol use: Yes Alcohol/week: 5.8 standard drinks of alcohol Types: 7 5 oz of wine per week Comment: Once a month Vaping/E-Cigarette Use Vaping/E-Cigarette Use Never User Passive Exposure No Counseling Given? No Vaping/E-Cigarette Substances Vaping/E-Cigarette Devices Tobacco/Alcohol screening completed today? Yes Hospital Care: Admissions (within the last year): Hospital, Location: [facility] 07/12 ER within 30 days: No Does the patient have an Advance Directives/Living Will? Yes Last Physical Exam: Last physical exam: Does patient see primary provider regularly? Yes Does patient see other providers? Yes, Specialist Patient Care Team updated? Yes Review of patient's allergies indicates: Allergen Reactions Enalapril Maleate Cough Immunization History Administered Date(s) Administered COVID-19 mRNA, LNP-s, No Preserve, 2-Dose Series ([employer]) 11/05/2020, 11/25/2020, 06/19/2021, 01/01/2022 COVID-19, MRNA-LNP, 23-24, PF, 30 MCG/0.3 mL, 12 YRS AND ABOVE, IM ([employer] Comirnaty) 10/19/2023 Covid-19, Mrna, Lnp-s, Pf, Bivalent, 30 Mcg, IM, 12 yrs and above ([employer]) 08/05/2022 H1N1 2009 Influenza, IM 09/24/2009 Pneumococcal Conjugate Vacc, 13 Valent (Prevnar) 01/30/2019 Pneumococcal Polysaccharide PPV23 (Pneumovax) 12/20/2008, 04/19/2020 Season Influenza, Quad, PF, Adjuvanted, 65+ Yrs, IM (FLUAD) 07/09/2020 Seasonal Influenza Virus Vaccine, Unspecified Formulation 06/06/2021 Seasonal Influenza, PF, 6 M & above, IM , (FluLaval or Fluzone) 07/20/2017, 06/28/2018, 06/26/2019 Seasonal Influenza, Quadrivalent Hd (Fluzone Hd) 05/28/2022 Seasonal Influenza, Quadrivalent, No Preserve, IM 07/08/2016 Seasonal Influenza, Quadrivalent, No Preserve, Mdck 06/28/2018 Seasonal Influenza, Split, IIV3, With Preserve, Inj 07/05/2009, 07/23/2010, 06/23/2011, 07/04/2012,07/12/2013, 07/13/2014, 07/04/2015 Seasonal Influenza, Trivalent, High Dose, No Preserve, IM 06/26/2019 TD, Preservative Free 11/16/2018 TDAP (age 11 and older)(Adacel) 04/18/2008, 06/12/2023 Varicella Zoster Vaccine (Adult) 01/11/2014 Zoster Vaccine Recombinant (Shingrix) 10/05/2019, 12/06/2019 Current Outpatient Medications Medication Sig Dispense Refill [...] MOUTH IN THE MORNING 90 Tablet 3 hydroCHLOROthiazide 25 MG Oral Tablet (Hydrodiuril) Take 1 Tablet by mouth in the morning. 90 Tablet 3 Clopidogrel Bisulfate 75 MG Oral Tablet (pLAVix) [...] (Protonix) TAKE ONE TABLET BY MOUTH EVERY [id number] Tablet 0 Metoprolol Succinate ER 25 MG Oral Tablet Extended Release 24 Hour (toPROL XL) Take 1 Tablet by mouth at bedtime. 90 Tablet 3 Triamcinolone Acetonide 0.1 % External Cream (Aristocort) Apply topically to affected area 2 times a day. To affected area. 80 g 0 Gabapentin 100 MG Oral Capsule (Neurontin) Take 1 Capsule by mouth in the morning and 1 Capsule at noon and 1 Capsule before bedtime. (Patient taking differently: Take 1 Capsule by mouth in the morning and 1 Capsule at noon and 1 Capsule before bedtime. Patient taking only at night currently.) 270 Capsule 1 Sildenafil Citrate 50 MG Oral Tablet TAKE ONE TABLET BY MOUTH 1 TO 4 HOURS BEFORE INTERCOURSE 4 Tablet 2 No current facility-administered medications for this visit. 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 Yes Patient takes medications as prescribed? Yes Patient manages own medications: No Patient uses a pill box? No Dental Exam: Yes: Every 6 Months Eye Screening: Yes: Every year Are you having trouble with hearing? No Do you use an assistive device to help your hearing? No Exercise Screening: only the exercise associated with activities around the house Nutrition Assessment: Eats three meals a day Pain Screening: Are you having any pain? No Sleep Screening Tool 'STOP': Do you snore? yes Do you feel fatigued during the day? No Do you wake up feeling like you haven't slept? No Have you been told you stop breathing at night? No Do you gasp for air or choke while sleeping? No Have you been told you have Sleep Apnea? No Do you have high blood pressure or are on medication(s) to control high blood pressure? Yes SCORE: If you check YES to two or more questions, make a referral for Obstructive Sleep Apnea Patient and Caregiver Support System: Patient lives with a spouse and with other relatives Means of Transportation: Drives. Not a concern. Patient lives in [place] Community Resources: Not Applicable Functional Status and ADL Skills: Has patient ever had an amputation? No Functional Assessment: 90- Able to carry on normal activity, minor symptoms of disease Ambulation: Patient ambulates without assistive device. Independent Dressing: Gets clothes and dresses without any assistance: Independent Able to move freely in chair or bed including turning over: Independent Repositioning (bed or chair): Not applicable Transfers: Independent Toileting: Goes to bathroom, uses toilet, arranges clothes and returns without any assistance: Independent Toileting: continent of bladder and continent of bowel Feeding: Self Bathing: Self; walk in shower grab bars Requires none assistance with ADLs. Instrumental ADL's: Shopping: Independent Housekeeping: Minimal Assistance Handling Finances: Minimal Assistance DME Vendor Name: Not Applicable Fall Risk Assessment: Can the patient demonstrate that he can stand from a sitting position? Yes Has the patient had a fall within the last 6 months? No Does the patient have a problem with his gait or balance? No Does the patient take 4 or more prescription medicines? No Does the patient use sedatives or narcotics? No Fall Risk Factors Present: Uses more than 4 medications Nzv-Dl-hfb-Go Test: Time began at 200. Patient stood from sitting position and walked approximately 10 feet, returned and sat down. Total time for qsz-rd-nuy-go test was 9 seconds. Oey-Pr-ceg-Go Test completed? Yes Gender Specific Preventative Plan: Health Maintenance Topic Date Due COLONOSCOPY-EVERY 3 YRS AGES 18-100 06/05/2023 Albumin/Creatinine Ratio 10/22/2023 Depression Screening 11/11/2023 GFR 04/18/2024 HbA1c 06/11/2024 CKD PHOS USE SMARTSET 50443 06/11/2024 CKD HGB USE SMARTSET [id number] 10/19/2024 DTaP,Tdap,and Td Vaccines (4 - Td or Tdap) 06/12/2033 Influenza Vaccine (FLU shot) Completed Zoster Vaccines Completed Pneumococcal Vaccine: 65+ Years Completed COVID-19 Vaccine Completed Hepatitis B Aged Out MENINGOCOCCAL (MENACTRA/MENVEO) Aged Out GARDASIL-HPV IMMUNIZATION SERIES Aged Out Follow Up/ Referrals/Handouts: Depression screening - completed Functional assessment - doing well, very active outside, he has noticed he has been using his inhaler more often and since its been a while cardiology is going to [place] Risk screening - discussed Exercise screening - encouraged to stay active Nutrition assessment -. Education Provided Pain screening - none today Incontinence screening - doing well no complaints Patient has been verbally educated on the need or importance of Cholesterol, Colon Cancer Screening, GFR, Glucose, Hemoglobin A1c, and Immunizations: flu,covid,shingrix Pt has completed the covid vaccines: Yes, Routine general medical examination at a health care facility (Primary) Risk and functional assessment 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) - Med reconciliation completed and compliance discussed. - pt to continue present medications. Patient does follow up with cardiology and does have a stress test scheduled. Chronic kidney disease, stage 3a (HCC) - Med reconciliation completed and compliance discussed. - pt to continue present medications. Component Latest Ref Rng 10/19/2023 BUN 6 - 20 mg/dL 25 (H) Creatinine 0.6 - 1.2 mg/dL 1.4 (H) Estimated Glomerular Filtration Rate >=60 mL/min 55 (L) Legend: (H) High (L) Low Chronic right shoulder pain -doing better since seeing pain management. Dyslipidemia, goal LDL below 70 - Med reconciliation completed and compliance discussed. - pt to continue present medications. Lab Results Component Value Date/Time LDL CHOLESTEROL (CALCULATED) - [facility] 60 03/30/2022 08:55 AM LDL CHOLESTEROL (CALCULATED) - [facility] 51 10/03/2018 02:32 PM LDL CHOLESTEROL (DIRECT MEASURE) - [facility] 71 10/19/2023 12:25 PM LDL CHOLESTEROL (DIRECT MEASURE) - [facility] NOT APPLICABLE 10/03/2018 02:32 PM LDL CHOLESTEROL (DIRECT MEASURE) - [facility] 157 (H) 10/26/2012 09:43 AM Esophageal reflux - Med reconciliation completed and compliance discussed. - pt to continue present medications. HTN, GOAL BELOW 140/90 - Med reconciliation completed and compliance discussed. - pt to continue present medications. BP Readings from Last 3 Encounters: 11/15/23 104/70 10/21/23 120/62 10/06/23 116/66 Impotence of organic origin - Med reconciliation completed and compliance discussed. - pt to continue present medications. S/P angioplasty with stent Patient does follow up with cardiology Advanced care planning/counseling discussion Patient does have a ACP and copy is scanned into chart and verified [facility] as aPm Shaw and first alternate surrogate Holli Torres ([place]) Follow Up: Return in 1 year (on 11/15/2024) for 12 month Subsequent Adult Wellness Visit. | For: 12 month Subsequent Adult Wellness Visit | Check-out note: 12 month Subsequent Adult Wellness Visit Would patient like to schedule next AWV visit? Yes Patrica Van RN documented in this encounter Miscellaneous Notes * ACP (Advance Care Planning) - Patrica Van, RN - 11/15/2023 2:24 PM EST Patient-centered Communication 11/15/2023 The patient/surrogate voluntarily agreed to participate in advance care planning discussion. They were advised that this is a separate service which may incur out of pocket cost in the form of copayment and/or deductibles. Location: Clinic Individual(s) present for conversation: Patient and Spouse Decisions Additional Comments Synopsis SmartLink Most Recent Value Past ~10 years 11/15/2023 14:29 Additional Comments Additional Comments: Patient does have a ACP and copy is scanned into chart and verified [facility] as Pam Shaw and first alternate surrogate Holli Torres ([place]) 11/15/2023 Patient does have a ACP and copy is scanned into chart and verified [facility] as Pam Shaw and first alternate surrogate Holli Torres ([place]) Discerning What Matters Most to the Patient: Synopsis [facility] Most Recent Value Past ~10 years 11/15/2023 14:30 Discerning What Matters Most to the Patient In their own words, patient's UNDERSTANDING of their illness is: I feel my health is good for my age, Im very active. 11/15/2023 I feel my health is good for my age, Im very active. Their current SYMPTOMS include: Pain 11/15/2023 Pain The patient's HOPES are: Maintain current functional abilities 11/15/2023 Maintain current functional abilities Source: Content from [facility] Aligning Care With What Matters Most: Synopsis [facility] Most Recent Value Past ~10 years 11/15/2023 14:29 Aligning Care With What Matters Most In their own words, the patient's understanding of their prognosis: I feel my health is good for myage, Im very active. 11/15/2023 I feel my health is good for my age, Im very active. Rationale for Decisions Source: Content from [facility] 10 minutes spent in direct [id number] discussion today, Patrica Van RN * Pt Handout (on AVS) - Patrica Van RN - 11/15/2023 2:20 PM EST triglycerides Triglycerides Does this test have other names? Lipid panel, fasting lipoprotein panel What is this test? This test measures the amount of triglycerides in your blood. Triglycerides are one of several types of fats in your blood. Other kinds are LDL (bad) cholesteroland HDL (good) cholesterol. Knowing your triglyceride level is important, especially if you have diabetes, are overweight or a smoker, or are mostly inactive. High triglyceride levels may put you at greater risk for a heart attack or stroke. This test is part of a group of cholesterol and blood fat tests called a fasting lipoprotein panel,or lipid panel. This panel is recommended for all adults at least once every 5 years, or as recommended by your healthcare provider. Knowing your triglyceride level helps your healthcare provider suggest healthy changes to your dietor lifestyle. If you have triglycerides that are high to very high, your provider is more likely toprescribe medicines to lower your triglycerides or your LDL cholesterol. Why do I need this test? You may need this test as part of a routine checkup. You may also need this test if you're overweight, drink too much alcohol, rarely exercise, or have other conditions like high blood pressure or diabetes. If you are on cholesterol-lowering medicines, you may have this test to see how well your treatmentis working. What other tests might I have along with this test? Your healthcare provider will order screening tests for LDL, HDL, and total cholesterol. What do my test results mean? Test results may vary depending on your age, gender, health history, and other things. Your test results may be different depending on the lab used. They may not mean you have a problem. Ask your healthcare provider what your test results mean for you. Results are given in milligrams per deciliter (mg/dL). Normal levels of triglycerides are less [id number] mg/dL. Here are how higher numbers are classified: 150 to 199 mg/dL: Borderline high 200 to 499 mg/dL: High 500 mg/dL and above: Very high If you have a high triglyceride level, you have a greater risk for heart attack and stroke. A triglyceride level above 150 mg/dL also means that you may have an increased risk for metabolic syndrome. This is a cluster of symptoms including high blood pressure, high blood sugar, and high body fat around the waist. These symptoms have been linked to increased risk for diabetes, heart disease, and stroke. High triglyceride levels can also be caused by certain diseases or inherited conditions. If your triglyceride level is above 200 mg/dL, your healthcare provider may recommend that you do the following: Lose weight. Limit high-fat foods containing saturated fats. These are animal fats found in meat, butter, andwhole milk. Limit trans fats that are found in many processed foods like chips and store- bought cookies. Cut back on drinks with added sugars, such as soda. Limit your alcohol intake. Stop smoking. Control your blood pressure. Exercise for at least 30 minutes a day, 5 days a week. Limit the calories from fat in your diet to 25% to 35% of your total intake. If your triglycerides are extremely high?above 500 mg/dL?you may have an added risk for problems with your pancreas. You will likely need medicine to lower your levels along with recommended changes in diet and lifestyle. How is this test done? The test is done with a blood sample. A needle is used to draw blood from a vein in your arm or hand. Does this test pose any risks? Having a blood test with a needle carries some risks. These include bleeding, infection, bruising, and feeling lightheaded. When the needle pricks your arm or hand, you may feel a slight sting or pain. Afterward, the site may be sore. What might affect my test results? Not fasting for the required length of time before the test can affect your results. Certain medicines can affect your results, as can drinking alcohol. How do I prepare for the test? If you have this test as part of a cholesterol screening, you will need to not eat or drink anything but water for 9 to 12 hours before the test. Tell your healthcare provider about all medicines, herbs, vitamins, and supplements you are taking. This includes medicines that don't need a prescription and any illegal drugs you may use. Last Reviewed Date: 05/21/202219998603-5611 [employer]. All rights reserved. This information is not intended as a substitute for professional medical care. Always follow your healthcare professional's instructions. * Pt Handout (on AVS) - Patrica Van RN - 11/15/2023 2:19 PM EST cholesterol Cholesterol Does this test have other names? Total blood cholesterol, serum cholesterol; lipid panel; lipid profile What is this test? This test measures the amount of cholesterol in your blood. This helps your healthcare provider figure out your risk for heart disease. Cholesterol is a waxy fat-like substance found in all of your body's cells. It plays an important role in various body processes. But your body can have too much cholesterol if you eat the wrong types of foods. These include fried foods and foods with saturated or trans fats. Some health conditionscan also make your cholesterol level too high. If you have too much cholesterol in your blood, it can stick to the mark of the arteries in your heart (coronary arteries). The extra cholesterol can make your blood vessels narrower (atherosclerosis). This narrowing makes it harder to get enough blood through your blood vessels. If your heart muscles don't get enough blood, this can cause chest pain and heart attack. Cholesterol can also stick to the mark of arteries elsewhere in your body (such as the brain, and legs). This can cause other types of artery diseases. The [place] [employer] advises all adults ages 20 and older have their cholesterol and other traditional risk factors checked every 4 to 6 years. You may need to have your blood tested more often if you are at risk for heart disease or stroke. Work with your healthcare provider to find out your risk for cardiovascular disease and stroke. Why do I need this test? You may have this test as part of your regular health checkup. You may have this test done more often if you are at risk for heart disease or have other health problems caused by high cholesterol. Here are some common reasons for the test: You have risk factors for heart disease. These include older age, obesity, family history of heart disease, high blood pressure, smoking, and diabetes. You have a condition that may be closely linked to high cholesterol. This includes diabetes, alcoholism, and thyroid, liver, or kidney disease. You eat a diet high in cholesterol and fats. You may also have this test if you had high or borderline cholesterol on an earlier blood test. Your healthcare provider may want to check to see whether medicine, diet, exercise, and other lifestylechanges are helping lower your cholesterol. What other tests might I have along with this test? You may need other blood tests to find out your HDL (good) cholesterol, LDL (bad) cholesterol, and triglyceride levels. This combination of blood tests is called a lipoprotein profile or a lipid profile. What do my test results mean? Test results may vary depending on your age, gender, health history, and other things. Your test results may be different depending on the lab used. They may not mean you have a problem. Ask your healthcare provider what your test results mean for you. Total cholesterol is measured in milligrams per deciliter (mg/dL). This is what your number may mean: Less than 200 mg/dL is desirable. 200 mg/dL to 239 mg/dL is borderline high. 240 mg/dL or higher means your cholesterol is high. High cholesterol is only one of the big risk factors for heart disease and stroke. Other things that can increase your risk, include smoking, diabetes, lack of exercise, high blood pressure, unhealthy diet, and age. To help find your overall risk, your healthcare provider may use a risk calculator. It takes into account your cholesterol level and other risk factors. Ask your healthcare provider about your 10-year risk if you are older than 40 or your lifetime risk if you are age 20 to 39. Depending on all of your risk factors, your healthcare provider will talk with you about your cholesterol results and what is important for overall health. High cholesterol may be linked to these conditions: Inherited diseases that cause high cholesterol Gallbladder stones Kidney failure Cancer of the pancreas or prostate Low thyroid hormone Diabetes Obesity Cholesterol levels below 140 mg/dL may happen with: Very healthy lifestyle and diet Severe liver disease High thyroid hormone Severe delacruz White blood cell cancers Poor nutrition Some types of anemia Short-term illness or infection Chronic lung disease How is this test done? The test is done with a blood sample. A needle is used to draw blood from a vein in your arm or hand. Does this test pose any risks? Having a blood test with a needle carries some risks. These include bleeding, infection, bruising, and feeling lightheaded. When the needle pricks your arm or hand, you may feel a slight sting or pain. Afterward, the site may be sore. What might affect my test results? Your diet, age, alcohol use, and other lifestyle choices may affect your results. Many medicines may also affect your results. may also affect your results. Having a heart attack in the last 3 months will also affect your results. How do I get ready for this test? You may be asked to eat your regular diet and not drink alcohol for at least 2 days before this test. You may be asked not to eat or drink anything but water for a certain amount of time before the test (fast or fasting). Tell your healthcare provider about all medicines, herbs, vitamins, and supplements you take. This includes medicines that don't need a prescription and any illegal drugs you may use. Last Reviewed Date: 05/21/202219990516-8147 [employer]. All rights reserved. This information is not intended as a substitute for professional medical care. Always follow your healthcare professional's instructions. * Pt Handout (on AVS) - Patrica Van RN - 11/15/2023 2:19 PM EST Images from the original note were not included. [id number] All About Cholesterol Control This sheet tells you how cholesterol affects your health. It explains how medicines and lifestyle changes can help improve your cholesterol levels. Understanding cholesterol Cholesterol is a type of fat (lipid) that?s carried in the blood. Your body makes cholesterol in the liver. You also get it from some foods. Your body needs some cholesterol to build healthy cells. But too much cholesterol can cause it to build up in blood vessels. This turns into plaque. Plaque is a fatty substance. Over time, plaque can narrow and harden the blood vessels. This reduces or blocks blood flow in these vessels. This is known as atherosclerosis. It raises your risk for heart attack, stroke, and other health problems. High blood cholesterol is a risk factor for atherosclerosis. Types of lipids in your blood Your blood has 3 main fats (lipids): LDL (low-density lipoprotein). This is known as bad cholesterol. It mainly carries cholesterol to body cells. Excess LDL will build up on artery mark. This raises your risk for heart disease and stroke. HDL (high-density lipoprotein). This is known as good cholesterol. This protein shell collects excess cholesterol that LDL has left behind on blood vessel mark. That's why high levels of HDL can lower your risk of heart disease and stroke. Triglycerides. Your body uses this form of fat to store energy. Like LDL cholesterol, this fat can cause plaque to build up in the blood vessels. Getting cholesterol tests You find out your blood lipid levels by having a blood test. You may need to not eat (fast) before getting this test. You may need your cholesterol levels checked at regular periods. This is to see if you are meeting your cholesterol goals. Make sure you know how often to get tested. Understanding your health risks In addition to your LDL levels, other factors may put you at high risk of atherosclerosis. These include: Diabetes Smoking High blood pressure Lack of exercise Obesity Family members who had early heart disease (men under age 55 and women under age 65) Metabolic syndrome Chronic kidney disease Chronic inflammatory conditions such as rheumatoid arthritis Menopause before age 40 History of -associated conditions such as pre-eclampsia Ethnicity (for example, from [place]) It's also important to consider your age and health history. Talk with your healthcare provider about your personal risk for heart disease and your treatment goals. Make sure you understand why thesegoals are based on your own health history and your family history of heart disease or high cholesterol. Medicines to control cholesterol Some people may need to take medicines to control their cholesterol. This can help prevent a heart attack or stroke. There are several types of medicine. Each type controls cholesterol in a differentway. Your healthcare provider will prescribe the type that?s best for you. You may need to take more than 1 medicine to reach your cholesterol goals. Ask your provider about any side effects your medicines may cause. Let your provider know if you have any side effects. The main types of medicines are: Statins. These are thought to be the best at lowering cholesterol. They do this by keeping your body from making cholesterol. This then tells the liver to remove cholesterol from your blood. This lowers LDL cholesterol. It may even remove cholesterol from plaque. Benefits: Statins lower LDL cholesterol. They slightly raise HDL cholesterol and lower triglycerides. Selective cholesterol absorption inhibitors. These prevent your body from absorbing cholesterol from food. They may be prescribed to use alone. Or you may take them with a statin. Benefits: These medicines lower LDL cholesterol. They slightly raise HDL cholesterol and lower triglycerides. Resins. Resins help you get rid of cholesterol through the intestines. They work by binding to bile. Bile is a substance that helps the body digest food. Your body uses cholesterol to make bile. Normally, most bile is absorbed by the body during digestion. But when bile is bound to resin, it's removed from the body. So the body must make more bile. To do this, the body takes up more cholesterol from the blood. Benefits: Resins lower LDL cholesterol. Fibrates (fibric acid derivatives). These are best at cutting back on how many triglycerides your body makes. They don?t work well to lower LDL. Benefits: Fibrates lower triglycerides. They raise HDL cholesterol. Niacin (nicotinic acid). Niacin (vitamin B-3) limits the liver's ability to make blood fats. Butdon?t use ficm-xhq-xhowebt niacin for cholesterol problems. It isn?t regulated by the FDA. Benefits: Niacin raises HDL cholesterol. It lowers triglycerides and LDL cholesterol. Baltic-3 fatty acids. These reduce the amount of triglycerides your body makes. They help to clear these lipids from the blood. Baltic-3 fatty acids are found in many foods. These include salmon andother oily fish, and walnuts. Your healthcare provider may prescribe these fatty acids in capsule form. Benefits: Baltic-3s lower triglycerides. (Note: They may increase LDL cholesterol in some patients.) PCSK9 inhibitors. These medicines lower LDL cholesterol levels. They do this by breaking down the chemicals in the liver that control making LDL cholesterol. These medicines are given by an injection. They are often used for people who have an inherited form of high cholesterol. This is called familial hypercholesterolemia. Benefits: This medicine helps people who have a hard time controlling their cholesterol with other medicines. Taking your medicine Take your medicine exactly as instructed. This will help it work best. Here are tips for taking cholesterol medicine: Tell your provider if you?re or . Do this before taking any cholesterol medicines. Know when and how to take your medicine. Some may need to be taken with food. Others may need geetha taken on an empty stomach or at a certain time of day. Stick to a schedule. Try the following: o Don?t skip doses or stop taking your medicine. This is important even if you feel better or if your cholesterol numbers improve. o Set things up to help you remember. For example, work your medicine into your daily routine. Takeit when you get up in the morning or when you go to bed at night. o Keep track of what you take. You may take a few different medicines. If so, a list or chart can help you take the right pills at the right time. Use a pillbox with days of the week or times of day to keep track. Prevent medicine interactions. Some medicines and supplements can interact with each other. Thismeans they affect how other medicines work when taken together. Be sure to tell your healthcare provider about all other medicines you take. This includes vitamins, herbs, and vgeq-yli-pfdgkwy medicines. Know how to deal with side effects. Many people have side effects when they first start taking amedicine. These are things like headache, muscle aches, and stomach upset. Side effects should go away in a few weeks. Tell your healthcare provider about any side effects you have. Some side effectsinclude yellowing of the eyes, blurred vision, and breathing difficulties. If these occur, call your healthcare provider right away. Treatment with a healthy lifestyle Treatment for high cholesterol includes lifestyle changes. A healthy lifestyle is a vital part of preventing heart disease and stroke . Your healthcare provider will help you make changes to your lifestyle if needed. Things you may need to work on are: Diet Your healthcare provider will tell you what changes that you may need to make to your diet. You mayneed to see a registered dietitian for help. You might be asked to: Eat less meat that has saturated fat and cholesterol Eat less sodium (salt), especially if you have high blood pressure Eat more fresh vegetables and fruits Eat lean protein, like fish, chicken and turkey, and beans and peas Eat fewer processed meats, like deli meats, sausage, and pepperoni Choose low-fat milk, yogurt and cheese Use vegetable and nut oils instead of butter, shortening, or margarine Limit sweets and packaged foods, like chips, cookies, and baked foods Eat out less and not eat fast foods Physical activity Your healthcare provider may advise you to be more active. Exercise helps to increase your body's good HDL cholesterol. Your provider may advise that you do moderate to strong exercise for at least 40 minutes each day, 3 to 4 days each week. The amount may vary depending on your health. Some examples of this are: Walking at a brisk pace, about 3 to 4 miles per hour Jogging or running Riding a bicycle or stationary bike Swimming or water aerobics Dancing Hiking Martial arts Tennis If you haven?t exercised in a while, start slowly and build up to more. Weight management If you're overweight or obese, your healthcare provider may tell you to lose weight and lower your BMI (body mass index). Changing your diet and getting more exercise can help. Controlling the numberof calories you eat is the best way to lose weight. Smoking If you smoke, get help to quit now. Ask your healthcare provider about medicines that can help you fight cravings. Enroll in a stop-smoking program. This can improve your chances of success. Stress Learn ways to help you deal with stress in your home and work life. Here are a few ideas: Take a yoga class. You can find classes nearby or online. Get regular exercise. Exercise helps your mind let go of problems. It helps release stress in your muscles. Do deep breathing. Take a few minutes several times a day to just sit quietly and breathe. Focuson the air going into and out of your body. Talk with loved ones. Take a few minutes each day to connect with people that make you feel supported. Last Reviewed Date: 09/20/202119990804-8738 [employer]. All rights reserved. This information is not intended as a substitute for professional medical care. Always follow your healthcare professional's instructions. * Pt Handout (on AVS) - Patrica Van RN - 11/15/2023 2:19 PM EST Images from the original note were not included. [id number] 5 Steps for Eating Healthier Changing the way you eat can improve your health. It can lower your cholesterol and blood pressure,and help you stay at a healthy weight. Your diet doesn?t have to be bland and boring to be healthy.Just watch your calories and follow these steps: Step 1. Eat fewer unhealthy fats Choose more fish and lean meats instead of fatty cuts of meat. Skip butter and lard, and use less margarine. Replace these with healthier fats, such as olive, canola, or avocado oils. Pass on foods that have palm, coconut, or partially hydrogenated oils. Eat fewer high-fat dairy foods like cheese, ice cream, and whole milk. Get a heart-healthy cookbook and try some new recipes. Step 2. Go light on salt Keep the saltshaker off the table. Limit high-salt ingredients, such as soy sauce, bouillon, and garlic salt. Instead of adding salt when cooking, season your food with herbs, spices, and other flavorings. Try lemon, garlic, onion, vinegar, or salt-free herb seasonings. Limit convenience foods, such as boxed or canned foods and restaurant food. Read food labels and choose lower-sodium options. Buy fresh, frozen, or canned vegetables that don't have added salt. Step 3. Limit sugar Pause before you add sugars to pancakes, cereal, coffee, or tea. This includes white and brown table sugar, syrup, honey, and molasses. Cut your usual amount by half. Swap out sugar-filled soda and other drinks. Buy sugar-free or low-calorie beverages. Remember, water is always the best choice. Try adding lemon juice to water for extra flavor. Read labels and choose foods with less added sugar. Keep in mind that dairy foods and foods withfruit will have some natural sugar. Cut the sugar in recipes by 1/3 to 1/2. Boost the flavor with extracts like almond, vanilla, or orange. Or add spices such as cinnamon or nutmeg. Step 4. Eat more fiber Eat fresh fruits and vegetables every day. Boost your diet with whole grains. Go for oats, whole-grain rice, and bran. Add beans and lentils to your meals. Drink more water to match your fiber increase to help prevent constipation. Step 5. Pay attention to serving sizes Remember that a serving size is a standard measurement. It will let you track the amount of fat,calories, and other nutrients in the food you eat. Read the Nutrition Facts label on packaged foods to learn their serving sizes. Use serving sizes to assess how much food you put on your plate. Pay attention to your portions.How many servings are you eating? Keep in mind that your needs may change if you?re more active or less active, or if you have other factors that change your calorie needs. Use your hand to help you measure serving sizes. For example: o 1 teaspoon: This is about the size of the first joint of your thumb. o 1 tablespoon: This is about the size of the first 2 joints of your thumb. o 1 ounce: This is about what you can fit in your cupped hand. o 2 to 3 ounces: This is about the size of the palm of your hand. o cup: This is also about what you can fit in your cupped hand. o 1 cup: This is about the size of your fist. Last Reviewed Date: 08/20/202219992349-1973 [employer]. All rights reserved. This information is not intended as a substitute for professional medical care. Always follow your healthcare professional's instructions. documented in this encounter Plan of Treatment Upcoming Encounters Date Type Department Care Team (Latest Contact Info) Description 11/17/2023 11:40 AM EST Office Visit Otolaryngology [facility] [address] [place] [address] Renata Garcia PA-C [address] [place] [address] 12/15/2023 2:00 PM EDT Hospital Encounter ENDO [facility], Endoscopy Room [facility] [address] [place] [address] Marcellus Thompson MD [address] [place] [address] 12/15/2023 2:00 PM EDT - 12/15/2023 2:30 PM EDT Surgery ENDO [facility], Endoscopy Room [facility] [address] [place] [phone] Marcellus Thompson MD [address] [place] [address] COLONOSCOPY FLEXIBLE PROXIMAL DIAGNOSTIC 01/11/2024 11:30 AM EDT Telemedicine Interventional Pain Center, [facility] [address] [place] [address] Lisandra Blankenship PA-C [address] [place] [address] 01/13/2024 10:30 AM EDT Office Visit Nephrology, [facility] [address] [facility] [place] [address] ZemaitisLois PA-C [address] [facility] [place] [address] 01/28/2024 8:30 AM EDT Imaging Cardiac Studies, [facility] [address] [place] [address] 02/16/2024 10:30 AM EDT Office Visit Cardiology, [facility] [address] [place] [address] Pennie Naranjo CRNP [address] [place] [address] 05/17/2024 3:20 PM EDT Office Visit Family Medicine [address] [place] [phone] Sabino Izaguirre MD [address] [place] [address] [place] [address] 11/17/2024 9:00 AM EST Nurse Only Ancillary [address] [place] [address] [place], Nurse [facility] [address] [place] [address] [place] [address] Scheduled Procedures Name Priority Associated Diagnoses Date/Ti me COLONOSCOPY FLEXIBLE PROXIMAL DIAGNOSTIC Recall History of colon polyps 12/15/2023 2:00 PM EDT Health Maintenance Due Date Last Done Comments COLONOSCOPY-EVERY 3 YRS AGES 18-100 06/05/2023 06/05/2020, 06/05/2020, 02/08/2017, Additional history exists Albumin/Creatinine Ratio 10/22/2023 10/22/2022, 09/0 04/2022 Depression Screening 11/11/2023 11/11/2022 GFR 04/18/2024 10/19/2023, 06/20, 07/01/2023, Additional history exists CKD PHOS USE SMARTSET 25250 06/11/2024 06/11/2023 HbA1c 06/11/2024 06/11/2023, 09/0 04/2022, 04/02/2021, Additional history exists CKD HGB USE SMARTSET 36216 10/19/202410/19, 07/05/2023, 06/28/2023, Additional history exists DTaP,Tdap,and Td Vaccines (4 - Td or [...] this encounter Medical Devices Implanted Type Area Service Consultant Device Identifier Shelf Expiration Date Model / Serial / Lot Mesh Preshaped Large - [id number] Implanted:Qty : 1 on 12/31/2014 by Jj Weston MD at OR [facility] Right: Groin CR BARD : DAVOL 09/19/2018 [id number] / / [id number] Suture [place] Dbl Load 4.75mm - [id number] Implanted:Qty : 1 on 03/15/2020 by Kar Berry DO at OR [facility] Right: Shoulder [employer] 12/18/2021 [id number]- [id number] / / [id number] documented as of this encounter Visit Diagnoses Diagnosis Routine general medical examination at a health care facility- Primary Risk and functional assessment Screening for unspecified condition 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) Chronic kidney disease, stage 3a (HCC) Chronic right shoulder pain Pain in joint, shoulder region Dyslipidemia, goal LDL below 70 Other and unspecified hyperlipidemia Esophageal reflux HTN, GOAL BELOW 140/90 Unspecified essential hypertension Impotence of organic origin S/P angioplasty with stent Postsurgical percutaneous transluminal coronary angioplasty status Advanced care planning/counseling discussion Other specified counseling History of colon polyps Personal history of colonic polyps documented in this encounter Advance Directives Latest Code Status on File Code Status Date Activated Date Inactivated Comments Full Code 11/23/2012 8:27 PM 11/24/2012 8:07 PM This or emilia reflects the patients wishes and were consensually agreed upon. Question Answer Comments Discussion of Advance Directives occurred with: Patient/Family Care Teams Stitcher Around Relationship Specialty Start Date End Date Sabino Izaguirre MD [address] [place] [address] [place] [phone] PCP - General Family Medicine 01/21/21 documented as of this encounter
--- OUTSIDE RECORDS SUMMARY | 2024-02-04 04:59 | External Medical Summary | Summary of Care ---
Author Name Unknown Organization [facility] Address [address] [facility] [place] [address] Phone [phone] Care Team Providers Care Storm Window Installer Name Role Phone Sabino Izaguirre MD Primary Care Provide r Reason for Visit * Reason Onset Date Comments Advice 11/04/2023 Encounter Details Date Type Department Care Team (Late st Contact Info) Description 11/04/2023 Telephone Cardiology, [facility] [address] [place] [address] Joe Naranjo CRNP [address] [place] [address] Advice Allergies Active Allergy Reactions Criticality Noted Date Comments Enalapril Maleate Cough 11/12/2014 documented as of this encounter (statuses as of 11/04/2023) Medications Medication Sig Dispensed Refills Start Date [...] Sublingual Tablet Sublingual (Nitrostat)Indication s:Coronary atherosclerosis of [place] coronary artery,Stable angina PLACE 1 TABLET UNDER [...] before bedtime. 270 Capsule 1 07/12/2023 Active hydroCHLOROthiazide 25 MG Oral Tablet (Hydrodiuril)Indicati ons:HTN, [...] DAY 180 Tablet 1 10/16/2023 5 Active predniSONE 10 MG Oral Tablet (Deltasone)Indication s:Contact dermatitis, unspecified contact dermatitis type, unspecified trigger Take 5 tabs for 2 days, 4 tabs for 2 days, 3 tabs for 2 days, 2 tabs for 2 days 1 tab for 2 days 30 Tablet 0 10/21/2023 Active Pantoprazole Sodium 40 MG Oral Tablet [...] as of this encounter (statuses as of 11/04/2023) Active Problems Problem Noted Date Diagnosed Date [...] Impotence of organic origin 04/18/2008 Atherosclerosis of [place] co ronary artery of [place] heart with stable angina pectoris 01/01/2008 S/P angioplasty with stent 06/30/2006 Esophageal reflux 10/29/2005 ADVANCE DIRECTIVE INFORMATION 08/21/2005 Overview: No, Advance Directive brochure given to patient at prior appointment. documented as of this encounter (statuses as of 11/04/2023) Resolved Problems Problem Noted Date Diagnosed Date Resolved Date Cough due to RANDALL inhibitor 11/12/2014 0 01/30/2019 Hyperkalemia 11/12/2014 11/16/2018 Pre-operative cardiovascular examination 09/11/2014 11/12/2014 [employer] Other*[id number] 11/23/2012 10/27/2016 Overview: Study Title: Genomic Markers for Patients with Cardiovascular Disease Project # [id number] Boiler Tester: Laine Cadena MD [phone] Abnormal stress echocardiogram 11/17/2012 01/30/2019 Impotence of organic origin 04/18/2008 11/16/2018 Chest pain 08/31/2006 01/30/2019 HIP & THIGH INJURY NOS 12/05/200401/30 Rosacea 02/23/2001 01/30/2019 Dyslipidemia, goal to be determined 08/29/2009 Overview: Per Lipid Taxonomy. HYPERTENSION NOS 08/08/2009 Overview: Modified per HTN protocol #16. documented as of this encounter (statuses as of 11/04/2023) Immunizations Name Administration Dates Next Due COVID-19 mRNA, LNP-s, No Pre serve, 2-Dose Series ([employer]) 01/01/2022,06/19/2021,11/25/2020,10/21 COVID-19, MRNA-LNP, 23-24, P F, 30 MCG/0.3 mL, 12 YRS AND ABOVE, IM (Kiva-Comirnaty) 10/19/2023 H1N1 2009 Influenza, IM 09/24/2009 Pneumococcal [...] encounter Miscellaneous Notes * Telephone Encounter - Meron Heller OSA - 11/04/2023 1:04 PM EST Person calling: Pam Relationship to patient: Number to return call: [phone] Reason for call: Pt is scheduled for a stress echo on 01-27. No appts with joe until Nov. Was wondering if he can be seen afterwards or should we move the echo? Pharmacy: n/a Provider Name:Joe Naranjo documented in this encounter Plan of Treatment Upcoming Encounters Date Type Department Care Team (Latest Contact Info) Description 11/15/2023 2:00 PM EST Nurse Only Ancillary [address] [place] [address] [place], Nurse [address] [place] [address] 11/17/2023 11:40 AM EST Office Visit Otolaryngology [facility] [address] [place] [address] Renata Garcia PA-C [address] [place] [address] 12/15/2023 2:00 PM EDT Hospital Encounter ENDO [facility], Endoscopy Room [facility] [address] [place] [phone] Marcellus Thompson MD [address] [place] [address] 12/15/2023 2:00 PM EDT - 12/15/2023 2:30 PM EDT Surgery ENDO [facility], Endoscopy Room [facility] [address] [place] [phone] Marcellus Thompson MD [address] [place] [address] COLONOSCOPY FLEXIBLE PROXIMAL DIAGNOSTIC 01/11/2024 11:30 AM EDT Telemedicine Interventional Pain Center, [facility] [address] [place] [address] Lisandra Blankenship PA-C [address] [place] [address] 01/13/2024 10:30 AM EDT Office Visit Nephrology, [facility] [address] [place] [address] ZemaLois hermosillo PA-C [address] [place] [address] 01/28/2024 8:30 AM EDT Imaging Cardiac Studies, [facility] [address] [facility] [place] [address] 02/16/2024 10:30 AM EDT Office Visit Cardiology, [facility] [address] [facility] [place] [address] Joe Naranjo CRNP [address] [place] [address] Scheduled Procedures Name Priority Associated Diagnoses Date/Ti me COLONOSCOPY FLEXIBLE PROXIMAL DIAGNOSTIC Recall History of colon polyps 12/15/2023 2:00 PM EDT Health Maintenance Due Date Last Done Comments COLONOSCOPY-EVERY 3 YRS AGES 18-100 06/05/2023 06/05/2020, 06/05/2020, 02/08/2017, Additional history exists Albumin/Creatinine Ratio 10/22/2023 10/22/2022, 04/2022 Depression Screening 11/11/2023 11/11/2022 GFR 04/18/2024 10/19/2023, 06/20, 07/01/2023, Additional history exists CKD PHOS USE SMARTSET 52574 06/11/2024 06/11/2023 HbA1c 06/11/2024 06/11/2023, 04/2022, 04/02/2021, Additional history exists CKD HGB USE SMARTSET 50385 10/19/202410/19, 07/05/2023, 06/28/2023, Additional history exists DTaP,Tdap,and [...] this encounter Medical Devices Implanted Type Area Financial Institution President Device Identifier Shelf Expiration Date Model / Serial / Lot Mesh Preshaped Large - [id number] Implanted:Qty : 1 on 12/31/2014 by Jj Weston MD at OR [facility] Right: Groin CR BARD : DAVOL 09/19/2018 [id number] / / [id number] Suture [place] Dbl Load 4.75mm - [id number] Implanted:Qty : 1 on 03/15/2020 by Kar Berry DO at OR [facility] Right: Shoulder [employer] 12/18/2021 [id number]-2324BCT- 2 / / [id number] documented as of this encounter Advance Directives Latest Code Status on File Code Status Date Activated Date Inactivated Comments Full Code 11/23/2012 8:27 PM 11/24/2012 8:07 PM This or emilia reflects the patients wishes and were consensually agreed upon. Question Answer Comments Discussion of Advance Directives occurred with: Patient/Family Care Teams Storm Window Installer Relationship Specialty Start Date End Date Sabino Izaguirre MD [address] [place] [address] [place] [address] PCP - General Family Medicine 01/21/21 documented as of this encounter
--- OUTSIDE RECORDS SUMMARY | 2024-02-04 04:59 | External Medical Summary | Summary of Care ---
Author Name Unknown Organization [facility] Address [address] [place] [address] Phone [phone] Care Team Providers Care Hardboard Coating Machine Operator Name Role Phone Sabino Izaguirre MD Primary Care Provide r Reason for Visit * Reason Onset Date Comments Medication Refill 11/03/2023 Encounter Details Date Type Department Care Team (Late st Contact Info) Description 11/03/2023 Refill Family Medicine [address] [phone] Thong Germain [address] [place] [address] Contact dermatitis, unspecified contact dermatitis type, [...] Sublingual Tablet Sublingual (Nitrostat)Indicatio ns:Coronary atherosclerosis of [place] coronary artery,Stable angina PLACE 1 TABLET UNDER [...] before bedtime. 270 Capsule 1 3 Active hydroCHLOROthiazide 25 MG Oral Tablet (Hydrodiuril)Indicat ions:HTN, [...] 180 Tablet 1 4 10/15/19 25 Active predniSONE 10 MG Oral Tablet (Deltasone)Indicatio ns:Contact dermatitis, unspecified contact dermatitis type, unspecified trigger Take 5 tabs for 2 days, 4 tabs for 2 days, 3 tabs for 2 days, 2 tabs for 2 days 1 tab for 2 days 30 Tablet 0 4 Active Pantoprazole Sodium 40 MG Oral [...] affected area. 80 g 0 4 Active Triamcinolone Acetonide 0.1 % External [...] Impotence of organic origin 04/18/2008 Atherosclerosis of [place] co ronary artery of [place] heart with stable angina pectoris 01/01/2008 S/P [...] cardiovascular examination 09/11/2014 11/12/2014 [employer] Other*[id number] 11/23/2012 10/27/2016 Overview: Study Title: Genomic Markers for Patients with Cardiovascular Disease Project # [id number] Firmware Architect: Laine Cadena MD [phone] Abnormal stress echocardiogram 11/17/2012 01/30/2019 Impotence of [...] mRNA, LNP-s, No Pre serve, 2-Dose Series (GPMESS) 01/01/2022,06/19/2021,11/25/2020,10/21 COVID-19, MRNA-LNP, 23-24, P F, 30 [...] encounter Miscellaneous Notes * Telephone Encounter - Smooth Rudd RP - 11/04/2023 12:39 PM ESTSigned Prescriptions: Disp Refills Triamcinolone Acetonide 0.1 % External Cre*80 g 0 Sig: Apply topically to affected area 2 times a day. To affected area.Authorizing Provider: THONG GERMAIN User: SMOOTH RUDD * Telephone Encounter - Smooth Rudd RPh - 11/04/2023 12:38 PM EST Rerouted remaining refill to new pharmacy as requested. Thank you, Smooth Rudd, PharmD Clinical Pharmacist [facility] ([facility] (formerly Telepharm[facility]) [phone] 11/04/2023, 12:39 PM documented in this encounter Plan of Treatment Upcoming Encounters Date Type Department Care Team (Latest Contact Info) Description 11/15/2023 2:00 PM EST Nurse Only Ancillary [address] [place] [address] [facility], Nurse [address] [place] [address] 11/17/2023 11:40 AM EST Office Visit Otolaryngology [facility] [address] [place] [address] Renata Garcia PA-C [address] [place] [address] 12/15/2023 2:00 PM EDT Hospital Encounter ENDO [facility], Endoscopy Room [facility] [address] [place] [phone] Marcellus Thompson MD [address] [place] [address] 12/15/2023 2:00 PM EDT - 12/15/2023 2:30 PM EDT Surgery ENDO [facility], Endoscopy Room [facility] [address] [place] [address] Marcellus Thompson MD [address] [place] [address] COLONOSCOPY FLEXIBLE PROXIMAL DIAGNOSTIC 12/21/2023 11:00 AM EDT Office Visit Cardiology, [facility] [address] [place] [address] Pennie Naranjo CRNP [address] [place] [address] 01/11/2024 11:30 AM EDT Telemedicine Interventional Pain Center, [facility] [address] [place] [address] Lisandra Blankenship PA-C [address] [place] [address] 01/13/2024 10:30 AM EDT Office Visit Nephrology, [facility] [address] [facility] [place] [address] Zemaitis, Lois Neff PA-C [address] [place] [address] Scheduled Procedures Name Priority Associated Diagnoses Date/Ti me COLONOSCOPY FLEXIBLE PROXIMAL DIAGNOSTIC Recall History of colon polyps 12/15/2023 2:00 PM EDT Health Maintenance Due Date Last Done Comments COLONOSCOPY-EVERY 3 YRS AGES 18-100 06/05/2023 06/05/2020, 06/05/2020, 02/08/2017, Additional history exists Albumin/Creatinine Ratio 10/22/2023 10/22/2022, 0 04/2022 Depression Screening 11/11/2023 11/11/2022 GFR 04/18/2024 10/19/2023, 06/20, 07/01/2023, Additional history exists CKD PHOS USE SMARTSET 40877 06/11/2024 06/11/2023 HbA1c 06/11/2024 06/11/2023, 0 04/2022, 04/02/2021, Additional history exists CKD HGB USE SMARTSET 12375 10/19/202410/19, 07/05/2023, 06/28/2023, Additional history exists DTaP,Tdap,and [...] this encounter Medical Devices Implanted Type Area Studio Coordinator Device Identifier Shelf Expiration Date Model / Serial / Lot Mesh Preshaped Large - [id number] Implanted:Qty : 1 on 12/31/2014 by Jj Weston MD at OR [facility] Right: Groin CR BARD : DAVOL 09/19/2018 [id number] / / [id number] Suture [place] Dbl Load 4.75mm - [id number] Implanted:Qty : 1 on 03/15/2020 by Kar Berry DO at OR [facility] Right: Shoulder [employer] 12/18/2021 AR-2324BCT- 2 / / [id number] documented as of this encounter Visit Diagnoses [...] Advance Directives occurred with: Patient/Family Care Teams Hardboard Coating Machine Operator Relationship Specialty Start Date End Date Sabino Izaguirre MD [address] [place] [address] [place] [address] PCP - General Family Medicine 01/21/21 documented as of this encounter
--- OUTSIDE RECORDS SUMMARY | 2024-02-04 04:59 | External Medical Summary | Summary of Care ---
Author Name Unknown Organization [facility] Address [address] [place] [address] Phone [phone] Care Team Providers Care Pharmaceutical Operator Name Role Phone Sabino Izaguirre MD Primary Care Provide r Reason for Visit * Reason Onset Date Comments Advice 10/20/2023 Encounter Details Date Type Department Care Team (Late st Contact Info) Description 10/20/2023 Telephone Family Medicine [address] [phone] Sabino Izaguirre MD [address] [place] [id number] Advice Allergies Active Allergy Reactions Criticality Noted Date Comments Enalapril Maleate Cough 11/12/2014 documented as of this encounter (statuses as of 10/22/2023) Medications Medication Sig Dispensed Refills Start Date [...] Sublingual Tablet Sublingual (Nitrostat)Indication s:Coronary atherosclerosis of [place] coronary artery,Stable angina PLACE 1 TABLET UNDER [...] MORNING 90 Tablet 3 01/28/2023 4 Active Pantoprazole Sodium 40 MG Oral Tablet Delayed Release (Protonix) TAKE ONE TABLET BY MOUTH EVERY DAY 100 Tablet 3 09/17/2022 4 Active Gabapentin 100 MG Oral Capsule [...] BEFORE INTERCOURSE 4 Tablet 2 09/08/2023 Active Metoprolol Succinate ER 25 MG Oral Tablet Extended Release 24 Hour (toPROL XL)Indications:Palpit ations,Stable angina Take 1 Tablet by mouth at bedtime. 90 Tablet 3 09/09/2023 Active Clopidogrel Bisulfate 75 MG Oral Tablet [...] DAY 180 Tablet 1 10/16/2023 5 Active documented as of this encounter (statuses as of 10/22/2023) Active Problems Problem Noted Date Diagnosed Date [...] Impotence of organic origin 04/18/2008 Atherosclerosis of [place] co ronary artery of [place] heart with stable angina pectoris 01/01/2008 S/P angioplasty with stent 06/30/2006 Esophageal reflux 10/29/2005 ADVANCE DIRECTIVE INFORMATION 08/21/2005 Overview: No, Advance Directive brochure given to patient at prior appointment. documented as of this encounter (statuses as of 10/22/2023) Resolved Problems Problem Noted Date Diagnosed Date Resolved Date Cough due to RANDALL inhibitor 11/12/2014 0 01/30/2019 Hyperkalemia 11/12/2014 11/16/2018 Pre-operative cardiovascular examination 09/11/2014 11/12/2014 [employer] Other*[id number] 11/23/2012 10/27/2016 Overview: Study Title: Genomic Markers for Patients with Cardiovascular Disease Project # [id number] Utility Lineman: Laine Cadena MD [phone] Abnormal stress echocardiogram 11/17/2012 01/30/2019 Impotence of organic origin 04/18/2008 11/16/2018 Chest pain 08/31/2006 01/30/2019 HIP & THIGH INJURY NOS 12/05/200401/30 Rosacea 02/23/2001 01/30/2019 Dyslipidemia, goal to be determined 08/29/2009 Overview: Per Lipid Taxonomy. HYPERTENSION NOS 08/08/2009 Overview: Modified per HTN protocol #16. documented as of this encounter (statuses as of 10/22/2023) Immunizations Name Administration Dates Next Due COVID-19 mRNA, LNP-s, No Pre serve, 2-Dose Series ([employer]) 01/01/2022,06/19/2021,11/25/2020,10/21 COVID-19, MRNA-LNP, 23-24, P F, 30 [...] encounter Miscellaneous Notes * Telephone Encounter - Padmini Gordillo CMA - 10/22/2023 3:32 PM EST Patient sent myG, advised to call for appointment in weekend clinic or go to urgent care. * Telephone Encounter - Ofe Justin OSA - 10/20/2023 11:13 AM EST No Appointments Available Patient declined appointments?: No What Visit Type is needed? Acute If Acute Visit Type is needed, were surrounding clinics offered to patient (Yes/No)? N/A Was patient offered appointments with other available providers (Yes/No)? N/A See Call Details? (Yes or No): Yes documented in this encounter Plan of Treatment Upcoming Encounters Date Type Department Care Team (Latest Contact Info) Description 11/15/2023 2:00 PM EST Nurse Only Ancillary [address] [place] [address] [place], Nurse Annual [address] [place] [address] 11/17/2023 11:40 AM EST Office Visit Otolaryngology [facility] [address] [place] [address] Renata Garcia PA-C [address] [place] [address] 11/25/2023 2:00 PM EST Imaging Cardiac Studies, [facility] [address] [place] [address] 12/15/2023 2:00 PM EDT Hospital Encounter ENDO [facility], Endoscopy Room [facility] [address] [place] [phone] Marcellus Thompson MD [address] [place] [address] 12/15/2023 2:00 PM EDT - 12/15/2023 2:30 PM EDT Surgery ENDO [facility], Endoscopy Room [facility] [address] [place] [phone] Marcellus Thompson MD [address] [place] [address] COLONOSCOPY FLEXIBLE PROXIMAL DIAGNOSTIC 12/21/2023 11:00 AM EDT Office Visit Cardiology, [facility] [address] [place] [address] Pennie Naranjo CRNP [address] [place] [address] 01/11/2024 11:30 AM EDT Telemedicine Interventional Pain Center, [facility] [address] [place] [address] Lisandra Blankenship PA-C [address] [place] [address] 01/13/2024 10:30 AM EDT Office Visit Nephrology, [facility] [address] [place] [address] Lois Mcclendon PA-C [address] [place] [address] Scheduled Procedures Name Priority Associated Diagnoses Date/Ti me COLONOSCOPY FLEXIBLE PROXIMAL DIAGNOSTIC Recall History of colon polyps 12/15/2023 2:00 PM EDT Health Maintenance Due Date Last Done Comments COLONOSCOPY-EVERY 3 YRS AGES 18-100 06/05/2023 06/05/2020, 06/05/2020, 02/08/2017, Additional history exists Albumin/Creatinine Ratio 10/22/2023 10/22/2022, 0 04/2022 Depression Screening 11/11/2023 11/11/2022 GFR 04/18/2024 10/19/2023, 06/20, 07/01/2023, Additional history exists CKD PHOS USE SMARTSET 96423 06/11/2024 06/11/2023 HbA1c 06/11/2024 06/11/2023, 090 04/2022, 04/02/2021, Additional history exists CKD HGB USE SMARTSET 59022 10/19/202410/19, 07/05/2023, 06/28/2023, Additional history exists DTaP,Tdap,and [...] this encounter Medical Devices Implanted Type Area Ladle Liner Helper Device Identifier Shelf Expiration Date Model / Serial / Lot Mesh Preshaped Large - [id number] Implanted:Qty : 1 on 12/31/2014 by Jj Weston MD at OR [facility] Right: Groin CR BARD : DAVOL 09/19/2018 [id number] / / [id number] Suture [place] Dbl Load 4.75mm - [id number] Implanted:Qty : 1 on 03/15/2020 by Kar Berry DO at OR [facility] Right: Shoulder [employer] 12/18/2021 AR-2324BCT- 2 / / [id number] documented as of this encounter Advance Directives Latest Code Status on File Code Status Date Activated Date Inactivated Comments Full Code 11/23/2012 8:27 PM 11/24/2012 8:07 PM This or emilia reflects the patients wishes and were consensually agreed upon. Question Answer Comments Discussion of Advance Directives occurred with: Patient/Family Care Teams Pharmaceutical Operator Relationship Specialty Start Date End Date Sabino Izaguirre MD [address] [place] [address] [place] [address] PCP - General Family Medicine 01/21/21 documented as of this encounter
--- OUTSIDE RECORDS SUMMARY | 2024-02-04 04:59 | External Medical Summary | Summary of Care ---
Author Name Unknown Organization [facility] [address] [facility] [address] Phone [phone] Care Team Providers Care Log Handler Name Role Phone Sabino Izaguirre MD Primary Care Provide r Reason for Visit * Reason Onset Date Comments Medication Refill 11/03/2023 Encounter Details Date Type Department Care Team (Late st Contact Info) Description 11/03/2023 Refill Nephrology, [facility] [address] [place] [address] Kriss Mendoza MD [address] [place] [address] Palpitations; Stable angina Allergies Active Allergy Reactions Criticality Noted Date [...] Sublingual Tablet Sublingual (Nitrostat)Indicatio ns:Coronary atherosclerosis of [place] coronary artery,Stable angina PLACE 1 TABLET [...] 90 Tablet 3 3 01/28/20 24 Active Pantoprazole Sodium 40 MG Oral Tablet Delayed Release (Protonix) TAKE ONE TABLET BY MOUTH EVERY DAY 100 Tablet 3 2 11/05/19 24 Active Gabapentin 100 MG Oral Capsule [...] 2 days 30 Tablet 0 4 Active Triamcinolone Acetonide 0.1 % External Cream (Aristocort)Indicati ons:Contact dermatitis, unspecified contact dermatitis type, unspecified trigger Apply topically to affected area 2 times a day. To affected area. 80 g 1 4 Active Metoprolol Succinate ER 25 MG Oral Tablet Extended Release 24 Hour (toPROL XL)Indications:Palpi tations,Stable angina Take 1 Tablet by mouth at bedtime. 90 Tablet 3 4 Active Metoprolol Succinate ER 25 MG Oral Tablet Extended Release 24 Hour (toPROL XL)Indications:Palpi tations,Stable angina Take 1 Tablet by mouth at bedtime. 90 Tablet 3 3 11/03/19 24 Discontinu ed(Refill) documented as of [...] Impotence of organic origin 04/18/2008 Atherosclerosis of [place] co ronary artery of [place] heart with stable angina pectoris 01/01/2008 [...] cardiovascular examination 09/11/2014 11/12/2014 [employer] Other*[id number] 11/23/2012 10/27/2016 Overview: Study Title: Genomic Markers for Patients with Cardiovascular Disease Project # [id number] Drying Supervisor: Laine Cadena MD [phone] Abnormal stress echocardiogram 11/17/2012 01/30/2019 Impotence of [...] mRNA, LNP-s, No Pre serve, 2-Dose Series ([employer]) 01/01/2022,06/19/2021,11/25/2020,10/21 COVID-19, MRNA-LNP, 23-24, P F, 30 [...] encounter Miscellaneous Notes * Telephone Encounter - Gladys Cox MD - 11/04/2023 8:40 AM ESTSigned Prescriptions: Disp Refills Metoprolol Succinate ER 25 MG Oral Tablet *90 Tab*3 Sig: Take 1 Tablet by mouth at bedtime. Authorizing Provider: GLADYS COX * Telephone Encounter - Carolina Yepez RN - 11/04/2023 8:36 AM ESTPending Prescriptions: Disp Refills Metoprolol Succinate ER 25 MG Oral Tablet *90 Tab*3 Sig: Take 1 Tablet by mouth at bedtime. * Telephone Encounter - Carolina Yepez RN - 11/04/2023 8:35 AM EST Prescription request received from pharmacy pending. Please authorize. Last OV 09/09/23 Next OV 01/13/24 documented in this encounter Plan of Treatment Upcoming Encounters Date Type Department Care Team (Latest Contact Info) Description 11/15/2023 2:00 PM EST Nurse Only Ancillary [address] [place] [phone] [place], Nurse [address] [place] [address] 11/17/2023 11:40 AM EST Office Visit Otolaryngology [facility] [address] [place] [address] Renata Garcia PA-C [address] [place] [address] 12/15/2023 2:00 PM EDT Hospital Encounter ENDO [facility], Endoscopy Room [facility] [address] [place] [phone] Marcellus Thompson MD [address] [place] [address] 12/15/2023 2:00 PM EDT - 12/15/2023 2:30 PM EDT Surgery ENDO [facility], Endoscopy Room [facility] [address] [place] [phone] Marcellus Thompson MD [address] [place] [address] COLONOSCOPY FLEXIBLE PROXIMAL DIAGNOSTIC 12/21/2023 11:00 AM EDT Office Visit Cardiology, [facility] [address] [place] [address] Pennie Naranjo CRNP [address] [place] [address] 01/11/2024 11:30 AM EDT Telemedicine Interventional Pain Center, [facility] [address] [place] [address] Lisandra Blankenship PA-C [address] [place] [address] 01/13/2024 10:30 AM EDT Office Visit Nephrology, [address] [place] [address] ZemaLois hermosillo PA-C [address] [place], [place] [address] Scheduled Procedures Name Priority Associated Diagnoses Date/Ti me COLONOSCOPY FLEXIBLE PROXIMAL DIAGNOSTIC Recall History of colon polyps 12/15/2023 2:00 PM EDT Health Maintenance Due Date Last Done Comments COLONOSCOPY-EVERY 3 YRS AGES 18-100 06/05/2023 06/05/2020, 06/05/2020, 02/08/2017, Additional history exists Albumin/Creatinine Ratio 10/22/2023 10/22/2022, 090 04/2022 Depression Screening 11/11/2023 11/11/2022 GFR 04/18/2024 10/19/2023, 06/20, 07/01/2023, Additional history exists CKD PHOS USE SMARTSET 02957 06/11/2024 06/11/2023 HbA1c 06/11/2024 06/11/2023, 0 04/2022, 04/02/2021, Additional history exists CKD HGB USE SMARTSET 71906 10/19/202410/19, 07/05/2023, 06/28/2023, Additional history exists DTaP,Tdap,and [...] this encounter Medical Devices Implanted Type Area Field Party Manager Device Identifier Shelf Expiration Date Model / Serial / Lot Mesh Preshaped Large - [id number] Implanted:Qty : 1 on 12/31/2014 by Jj Weston MD at OR [facility] Right: Groin CR BARD : DAVOL 09/19/2018 [id number] / / [id number] Suture [place] Dbl Load 4.75mm - [id number] Implanted:Qty : 1 on 03/15/2020 by Kar Berry DO at OR [facility] Right: Shoulder [employer] 12/18/2021 AR-2324BCT- 2 / / [id number] documented as of this encounter Visit Diagnoses Diagnosis Palpitations Stable angina Other and unspecified angina pectoris History of colon polyps Personal history of colonic polyps documented in this encounter Advance Directives Latest Code Status on File Code Status Date Activated Date Inactivated Comments Full Code 11/23/2012 8:27 PM 11/24/2012 8:07 PM This or emilia reflects the patients wishes and were consensually agreed upon. Question Answer Comments Discussion of Advance Directives occurred with: Patient/Family Care Teams Log Handler Relationship Specialty Start Date End Date Sabino Izaguirre MD [address] [place] [address] [place] [phone] PCP - General Family Medicine 01/21/21 documented as of this encounter
--- OUTSIDE RECORDS SUMMARY | 2024-02-04 04:59 | External Medical Summary | Summary of Care ---
Author Name Unknown Organization [facility] Address [address] [place] [address] Phone [phone] Care Team Providers Care Process Development Associate Name Role Phone Sabino Izaguirre MD Primary Care Provide r Reason for Visit * Reason Comments Walk In Encounter Details Date Type Department Care Team (Late st Contact Info) Description 10/21/2023 2:00 PM EST Office Visit Family Medicine [address] [phone] Sabino Izaguirre MD [address] [place] [address] MS [phone] Contact dermatitis, unspecified contact dermatitis type, unspecified trigger* Allergies Active Allergy Reactions Criticality Noted Date Comments Enalapril Maleate Cough 11/12/2014 documented as of this encounter (statuses as of 10/21/2023) Medications Medication Sig Dispensed Refills Start Date [...] Sublingual Tablet Sublingual (Nitrostat)Indicatio ns:Coronary atherosclerosis of [place] coronary artery,Stable angina PLACE 1 TABLET UNDER [...] BEFORE INTERCOURSE 4 Tablet 2 3 Active Metoprolol Succinate ER 25 MG Oral Tablet Extended Release 24 Hour (toPROL XL)Indications:Palpi tations,Stable angina Take 1 Tablet by mouth at bedtime. 90 Tablet 3 3 Active Clopidogrel Bisulfate 75 MG Oral [...] 2 times a day. To affected area. 60 g 5 4 10/21/19 24 Discontinu ed(Refill) documented as of this encounter (statuses as of 10/21/2023) Active Problems Problem Noted Date Diagnosed Date [...] Impotence of organic origin 04/18/2008 Atherosclerosis of [place] co ronary artery of [place] heart with stable angina pectoris 01/01/2008 S/P angioplasty with stent 06/30/2006 Esophageal reflux 10/29/2005 ADVANCE DIRECTIVE INFORMATION 08/21/2005 Overview: No, Advance Directive brochure given to patient at prior appointment. documented as of this encounter (statuses as of 10/21/2023) Resolved Problems Problem Noted Date Diagnosed Date Resolved Date Cough due to RANDALL inhibitor 11/12/2014 0 01/30/2019 Hyperkalemia 11/12/2014 11/16/2018 Pre-operative cardiovascular examination 09/11/2014 11/12/2014 [employer] Other*[id number] 11/23/2012 10/27/2016 Overview: Study Title: Genomic Markers for Patients with Cardiovascular Disease Project # [id number] Command Post Craftsman: Laine Cadena MD [phone] Abnormal stress echocardiogram 11/17/2012 01/30/2019 Impotence of organic origin 04/18/2008 11/16/2018 Chest pain 08/31/2006 01/30/2019 HIP & THIGH INJURY NOS 12/05/200401/30 Rosacea 02/23/2001 01/30/2019 Dyslipidemia, goal to be determined 08/29/2009 Overview: Per Lipid Taxonomy. HYPERTENSION NOS 08/08/2009 Overview: Modified per HTN protocol #16. documented as of this encounter (statuses as of 10/21/2023) Immunizations Name Administration Dates Next Due COVID-19 mRNA, LNP-s, No Pre serve, 2-Dose Series (Stackops) 01/01/2022,06/19/2021,11/25/2020,10/21 COVID-19, MRNA-LNP, 23-24, P F, 30 [...] Sign Reading Time Taken Comments Blood Pressure 120/62 10/21/2023 11:47 AM EST Pulse 62 10/21/2023 11:47 AM EST Temperature 36.1 C (97 F) 10/21/2023 11:47 AM EST Respiratory Rate - - Oxygen Saturation 96% 10/21/2023 11:47 AM EST Inhaled Oxygen Concentration - - Weight - - Height - - Body Mass Index - - documented in this encounter Progress Notes * Ari Hartman CRNP - 10/21/2023 11:53 AM EST Images from the original note were not included. History of Present Illness Enzo Shaw is a 67 year old male that presents for Walk In Reports a rash for the past month that started on both of his ankles and has since spread to his legs, abdomen, and back. Rash is diffuse, itchy, and has scabbed from scratching Denies pain Denies any new soaps, detergents, medications Denies pets in the home Reports does cut wood but denies any fever, chills, body aches, fatigue, or palpitations Tried OTC anti-itch cream that provides some relief Denies noticing any bugs in the home. who lives with patient and is asymptomatic. Patient Active Problem List: ADVANCE DIRECTIVE INFORMATION Esophageal reflux [K21.9] S/P angioplasty with stent [Z95.820] Atherosclerosis of [place] coronary artery of [place] heart with stable angina pectoris (HCC) [I25.118] HTN, GOAL BELOW 140/90 [I10] Dyslipidemia, goal LDL below 70 [E78.5] Nodule of left lung [R91.1] Stable angina [I20.89] Hiatal hernia [K44.9] Ascending aorta dilation (HCC) [I77.810] Impotence of organic origin [N52.9] Prediabetes [R73.03] Hx of actinic keratosis [Z87.2] Chronic right shoulder pain [M25.511, G89.29] Chronic neck pain [M54.2, G89.29] Chronic kidney disease, stage 3a (HCC) [N18.31] DDD (degenerative disc disease), cervical [M50.30] Current Outpatient Medications: FISH OIL 1000 MG PO CAPS, one tablet twice daily, Disp: 60, Rfl: 5 ASPIRIN 81 MG PO TABS, 1 tablets daily (Patient taking differently: No sig reported), Disp: 30 Tab,Rfl: 11 fluticasone (FLONASE) 50 MCG/ACT nasal spray, Administer 2 Sprays into each nostril daily as neededfor Allergies., Disp: 1 Inhaler, Rfl: 5 Multiple Vitamins TABS, Take by mouth daily., Disp: , Rfl: Docusate Sodium 100 MG Oral Capsule (Colace), TAKE 1 CAPSULE BY MOUTH EVERY MORNING, Disp: 90 Capsule, Rfl: 1 ProAir HFA 108 (90 Base) MCG/ACT Inhalation Aerosol Solution, Inhale 2 Puffs by mouth every 4 hoursas needed for Wheezing., Disp: 18 g, Rfl: 2 amLODIPine Besylate 5 MG Oral Tablet (Norvasc), Take 1 Tablet by mouth 2 times a day., Disp: 180 Tablet, Rfl: 3 Spironolactone 25 MG Oral Tablet (Aldactone), TAKE 1 TABLET BY MOUTH IN THE MORNING, Disp: 90 Tablet, Rfl: 3 Nitroglycerin 0.4 MG Sublingual Tablet Sublingual (Nitrostat), PLACE 1 TABLET UNDER THE TONGUE EVERY 5 MINUTES NEEDED FOR PAIN, CHEST, Disp: 25 Tablet, Rfl: 5 Losartan Potassium 100 MG Oral Tablet (Cozaar), TAKE ONE TABLET BY MOUTH EVERY DAY IN THE MORNING, Disp: 90 Tablet, Rfl: 3 Torsemide 5 MG Oral Tablet (Demadex), TAKE ONE TABLET BY MOUTH IN THE MORNING, Disp: 90 Tablet, Rfl: 3 Pantoprazole Sodium 40 MG Oral Tablet Delayed Release (Protonix), TAKE ONE TABLET BY MOUTH EVERY DAY, Disp: 100 Tablet, Rfl: 3 Gabapentin 100 MG Oral Capsule (Neurontin), Take 1 Capsule by mouth in the morning and 1 Capsule atnoon and 1 Capsule before bedtime., Disp: 270 Capsule, Rfl: 1 hydroCHLOROthiazide 25 MG Oral Tablet (Hydrodiuril), Take 1 Tablet by mouth in the morning., Disp: 90 Tablet, Rfl: 3 Sildenafil Citrate 50 MG Oral Tablet, TAKE ONE TABLET BY MOUTH 1 TO 4 HOURS BEFORE INTERCOURSE, Disp: 4 Tablet, Rfl: 2 Metoprolol Succinate ER 25 MG Oral Tablet Extended Release 24 Hour (toPROL XL), Take 1 Tablet by mouth at bedtime., Disp: 90 Tablet, Rfl: 3 Clopidogrel Bisulfate 75 MG Oral Tablet (pLAVix), TAKE ONE TABLET BY MOUTH IN THE MORNING, Disp: 100 Tablet, Rfl: 1 Rosuvastatin Calcium 40 MG Oral Tablet (Crestor), TAKE ONE TABLET BY MOUTH IN THE MORNING, Disp: 90Tablet, Rfl: 1 Famotidine 20 MG Oral Tablet (Pepcid), TAKE ONE TABLET BY MOUTH TWICE A DAY, Disp: 180 Tablet, Rfl:1 No current facility-administered medications for this visit. Review of patient's allergies indicates: -- Enalapril Maleate -- Cough Past Medical History: 11/17/2012: Abnormal stress echocardiogram No date: Calculus of kidney 01/01/2008: Coronary atherosclerosis of [place] coronary artery 11/12/2014: Cough due to RANDALL inhibitor No date: Dyslipidemia, goal to be determined No date: GERD (gastroesophageal reflux disease) No date: HTN, goal to be determined 04/18/2008: Impotence of organic origin No date: Rosacea 09/10/05: S/P angioplasty with stent Comment: Circumflex Past Surgical History: 03/15/2020: ARTHONATACHA,W/ROTATOR CUFF; Right Comment: ARTHROSCOPY SHOULDER ROTATOR CUFF performed by Kar Berry DO at OR [facility] 11/23/2012: CARDIAC ANGIOPLASTY, PERCUTANEOUS, 1 ARTERY Comment: PTCA, CARDIAC ANGIOPLASTY, PERCUTANEOUS, 1 ARTERY [place] [facility] [facility] [place]: COLONOSCOPY, DIAGNOSTIC (RECTUM) Comment: few diverticula 02/08/2017: COLONOSCOPY, DIAGNOSTIC (RECTUM) Comment: adenomatous & hyperplastic polyps, diverticulosis, repeat 3 yrs/COLONOSCOPY FLEXIBLE PROXIMAL DIAGNOSTIC performed by Pedro Mejia MD at ENDOSCOPY [facility] 06/05/2020: COLONOSCOPY, DIAGNOSTIC (RECTUM) Comment: hyperplastic polyp, repeat 1 yr / COLONOSCOPY FLEXIBLE PROXIMAL DIAGNOSTIC performed by Belkis Arambula DO at ENDOSCOPY [facility] 09/27/2013: CORONARY ANGIOGRAPHY W/LEFT HEART CATH Comment: CORONARY ANGIOGRAPHY W/LEFT HEART CATH performed [place] Yaneth [place] MD [place] [facility] [place]/22/[place]: EGD, FLEXIBLE, W/BIOPSY Comment: GERD 10/19/2022: INJECT DX/THER SUBSTANCE INTERLAMINAR CERVICAL/THORACIC W IMAGE GUIDE Comment: INJECTION SPINE LUMBAR CERVICAL OR THORACIC performed by Leif Bass DO at OR [facility] 02/04/2023: INJECT DX/THER SUBSTANCE INTERLAMINAR CERVICAL/THORACIC W IMAGE GUIDE Comment: INJECTION SPINE LUMBAR CERVICAL OR THORACIC performed by Leif Bass DO at OR [facility] 1983: OTHER (INFORMATION) Comment: hernia repair- left inguinal No date: REMOVE TONSILS & ADENOIDS, UNDER 12 12/31/2014: REPAIR INITIAL INGUINAL HERNIA REDUCIBLE AGE 5 OR MORE; Right Comment: 12/31/2014 - - right REPAIR INITIAL INGUINAL HERNIA REDUCIBLE AGE 5 OR MORE performed by Jj Weston MD at OR [facility] No date: REPAIR OF NASAL SEPTUM 03/15/2020: SHOULDER ARTHROSCOPY SURGERY; Right Comment: ARTHROSCOPY SHOULDER DISTAL CLAVICLE RESECTION performed by Kar Berry DO at OR [facility] 03/15/2020: SHOULDER ARTHROSCOPY/DECOMPRESSION; Right Comment: ARTHROSCOPY SHOULDER SUBACROMIAL DECOMPRESSION performed by Kar Berry DO at OR [facility] 09/17/2014: UMBIL HERNIA REPAIR (INCARCERATED) AGE 5+YR; N/A Comment: 09/17/2014 REPAIR UMBILICAL HERNIA AGE 5 OR OVER INCARCERATED performed by Jj Weston MD at OR [facility] Social History Socioeconomic History Marital status: Spouse name: Pam Number of children: 4 Years of education: Not on file Highest education level: Not on file Occupational History 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 Tobacco Use Smoking status: Never Smokeless tobacco: Never Vaping Use Vaping Use: Never used Substance and Sexual Activity Alcohol use: Yes Alcohol/week: 5.8 standard drinks of alcohol Types: 7 5 oz of wine per week Comment: Once a month Drug use: No Sexual activity: Yes Partners: Female Other Topics Concerns: Not on file Social History Narrative ; 4 healthy children; 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 Cardiovascular: Rate and Rhythm: Normal rate and regular rhythm. Pulmonary: Effort: Pulmonary effort is normal. Breath sounds: Normal breath sounds. No stridor. No wheezing or rales. Skin: General: Skin is warm. Comments: Diffuse red papules located on lower back, b/l upper legs, and b/l ankles. Presence of scabbing and surrounding erythema from scratching. Absence of any purulent drainage or warmth. Skin appears dry. Neurological: Mental Status: He is alert. Assessment and Plan Contact dermatitis, unspecified contact dermatitis type, unspecified trigger (Primary) - apply unscented moisturizer to skin daily especially after showering - avoid taking long hot showers to prevent further drying of the skin - avoid scratching - monitor for signs of infections such as drainage or warmth - predniSONE 10 MG Oral Tablet (Deltasone); Take 5 tabs for 2 days, 4 tabs for 2 days, 3 tabs for 2days, 2 tabs for 2 days 1 tab for 2 days - Triamcinolone Acetonide 0.1 % External Cream (Aristocort); Apply topically to affected area 2 times a day. To affected area. Addendum by Exam: - macular papular erythematous rash on the back and L ankle with excoriations. No vesicles or streaks A/P: - likely allergen induced +/- dry skin - recommended antihistamine qhs, will try short course of prednisone - moisturizing body wash, lotion, humidifier use - RTC if the symptoms worsen - no sign of any acute infection Wrap-Up Follow Up: Return if symptoms worsen or fail to improve. Time: I spent a total of 20-29 minutes (exact time 25 mins) on the date of service in preparation, delivery, and documentation of the care provided to Enzo Shaw excluding any time spent in the performance of separately billed services. documented in this encounter Nursing Notes * Kyara Smith LPN - 10/21/2023 11:48 AM EST Has had rash for a month They are all over Very itchy documented in this encounter Plan of Treatment Upcoming Encounters Date Type Department Care Team (Latest Contact Info) Description 11/15/2023 2:00 PM EST Nurse Only Ancillary [address] [place] [address] [place], Nurse [address] [place] [phone] 11/17/2023 11:40 AM EST Office Visit Otolaryngology [facility] [address] [place] [address] Renata Garcia PA-C [address] [place] [address] 11/25/2023 2:00 PM EST Imaging Cardiac Studies, [facility] [address] [place] [address] 12/15/2023 2:00 PM EDT Hospital Encounter ENDO [facility], Endoscopy Room [facility] [address] [place] [phone] Marcellus Thompson MD [address] [place] [address] 12/15/2023 2:00 PM EDT - 12/15/2023 2:30 PM EDT Surgery ENDO [facility], Endoscopy Room [facility] [address] [place] [phone] Marcellus Thompson MD [address] [place] [address] COLONOSCOPY FLEXIBLE PROXIMAL DIAGNOSTIC 12/21/2023 11:00 AM EDT Office Visit Cardiology, [facility] [address] [place], [place] [address] Pennie Naranjo CRNP [address] [place] [address] 01/11/2024 11:30 AM EDT Telemedicine Interventional Pain Center, [facility] [address] [place] [address] Lisandra Blankenship PA-C [address] [place] [address] 01/13/2024 10:30 AM EDT Office Visit Nephrology, [facility] [address] [facility] [place] [address] Zemaitis, Lois Neff PA-C [address] [facility] [place] [address] Scheduled Procedures Name Priority Associated Diagnoses Date/Ti me COLONOSCOPY FLEXIBLE PROXIMAL DIAGNOSTIC Recall History of colon polyps 12/15/2023 2:00 PM EDT Health Maintenance Due Date Last Done Comments COLONOSCOPY-EVERY 3 YRS AGES 18-100 06/05/2023 06/05/2020, 06/05/2020, 02/08/2017, Additional history exists Albumin/Creatinine Ratio 10/22/2023 10/22/2022, 04/2022 Depression Screening 11/11/2023 11/11/2022 GFR 04/18/2024 10/19/2023, 06/20, 07/01/2023, Additional history exists CKD PHOS USE SMARTSET 99101 06/11/2024 06/11/2023 HbA1c 06/11/2024 06/11/2023, 0 04/2022, 04/02/2021, Additional history exists CKD HGB USE SMARTSET 28949 10/19/202410/19, 07/05/2023, 06/28/2023, Additional history exists DTaP,Tdap,and [...] this encounter Medical Devices Implanted Type Area Forest Patrolman Device Identifier Shelf Expiration Date Model / Serial / Lot Mesh Preshaped Large - [id number] Implanted:Qty : 1 on 12/31/2014 by Jj Weston MD at OR [facility] Right: Groin CR BARD : DAVOL 09/19/2018 [id number] / / [id number] Suture [place] Dbl Load 4.75mm - [id number] Implanted:Qty : 1 on 03/15/2020 by Kar Berry DO at OR [facility] Right: Shoulder [employer] 12/18/2021 [id number] / / [id number] documented as of this encounter Visit Diagnoses Diagnosis Contact dermatitis, unspecified contact dermatitis type, unspecified trigger- Primary History of colon polyps Personal history of colonic polyps documented in this encounter Advance Directives Latest Code Status on File Code Status Date Activated Date Inactivated Comments Full Code 11/23/2012 8:27 PM 11/24/2012 8:07 PM This or emilia reflects the patients wishes and were consensually agreed upon. Question Answer Comments Discussion of Advance Directives occurred with: Patient/Family Care Teams Process Development Associate Relationship Specialty Start Date End Date Sabino Izaguirre MD [address] [place] [address] [place] [address] PCP - General Family Medicine 01/21/21 documented as of this encounter
--- OUTSIDE RECORDS SUMMARY | 2024-02-04 05:00 | External Medical Summary | Summary of Care ---
Author Name Unknown Organization [facility] Address [address] [place] [address] Phone [phone] Care Team Providers Care Plant Operator/Shift Supervisor Name Role Phone Sabino Whittington MD Primary Care Provide r Reason for Visit * Reason Comments Medication Refill Encounter Details Date Type Department Care Team (Late st Contact Info) Description 10/15/2023 Refill Family Medicine [address] [phone] Sabino Whittington MD [address] [place] [address] [place] [address] Dyslipidemia, goal LDL below 70; Gastroesophageal reflux disease without esophagitis Allergies Active Allergy Reactions Criticality Noted Date Comments Enalapril Maleate Cough 11/12/2014 documented as of this encounter (statuses as of 10/16/2023) Medications Medication Sig Dispensed Refills Start Date [...] Sublingual Tablet Sublingual (Nitrostat)Indicatio ns:Coronary atherosclerosis of [place] coronary artery,Stable angina PLACE 1 TABLET UNDER [...] 180 Tablet 1 4 10/15/19 25 Active Rosuvastatin Calcium 40 MG Oral Tablet (Crestor)Indications :Dyslipidemia, goal LDL below 70 TAKE ONE TABLET BY MOUTH IN THE MORNING 90 Tablet 3 2 10/15/19 24 Discontinu ed(Refill) Famotidine 20 MG Oral Tablet (Pepcid)Indications: Gastroesophageal reflux disease without esophagitis TAKE ONE TABLET BY MOUTH TWICE A DAY 180 Tablet 3 2 10/15/19 24 Discontinu ed(Refill) documented as of this encounter (statuses as of 10/16/2023) Active Problems Problem Noted Date Diagnosed Date [...] Impotence of organic origin 04/18/2008 Atherosclerosis of [place] co ronary artery of [place] heart with stable angina pectoris 01/01/2008 S/P angioplasty with stent 06/30/2006 Esophageal reflux 10/29/2005 ADVANCE DIRECTIVE INFORMATION 08/21/2005 Overview: No, Advance Directive brochure given to patient at prior appointment. documented as of this encounter (statuses as of 10/16/2023) Resolved Problems Problem Noted Date Diagnosed Date Resolved Date Cough due to RANDALL inhibitor 11/12/2014 0 01/30/2019 Hyperkalemia 11/12/2014 11/16/2018 Pre-operative cardiovascular examination 09/11/2014 11/12/2014 [employer] Other*[id number] 11/23/2012 10/27/2016 Overview: Study Title: Genomic Markers for Patients with Cardiovascular Disease Project # [id number] Wellness Consultant: Laine Cadena MD [phone] Abnormal stress echocardiogram 11/17/2012 01/30/2019 Impotence of organic origin 04/18/2008 11/16/2018 Chest pain 08/31/2006 01/30/2019 HIP & THIGH INJURY NOS 12/05/200401/30 Rosacea 02/23/2001 01/30/2019 Dyslipidemia, goal to be determined 08/29/2009 Overview: Per Lipid Taxonomy. HYPERTENSION NOS 08/08/2009 Overview: Modified per HTN protocol #16. documented as of this encounter (statuses as of 10/16/2023) Immunizations Name Administration Dates Next Due COVID-19 mRNA, LNP-s, No Pre serve, 2-Dose Series (everbill) 01/01/2022,06/19/2021,11/25/2020,10/21 H1N1 2009 Influenza, IM 09/24/2009 Pneumococcal Conjugate [...] encounter Miscellaneous Notes * Telephone Encounter - Bismark [facility] - 10/16/2023 2:24 PM EST Signed Prescriptions: Disp Refills Rosuvastatin Calcium 40 MG Oral Tablet (Cr*90 Tab*1 Sig: TAKE ONE TABLET BY MOUTH IN THE MORNINGAuthorizing Provider: Reid WHITTINGTON User: BISMARK HERNANDEZ Famotidine 20 MG Oral Tablet (Pepcid) 180 Ta*1 Sig: TAKE ONE TABLET BY MOUTH TWICE A DAYAuthorizing Provider: Reid WHITTINGTON User: BISMARK HERNANDEZ documented in this encounter Plan of Treatment Upcoming Encounters Date Type Department Care Team (Latest Contact Info) Description 10/19/2023 1:00 PM EST Immunization Ancillary [address] [place] [address] [facility] Covid19 Vaccine [address] [place] [address] 11/15/2023 2:00 PM EST Nurse Only Ancillary [address] [place] [address] [place], Nurse [address] [place] [address] 11/17/2023 11:40 AM EST Office Visit Otolaryngology [facility] [address] [place] [address] Renata Garcia PA-C [address] [place] [address] 11/25/2023 2:00 PM EST Imaging Cardiac Studies, [facility] [address] [place] [address] 12/15/2023 2:00 PM EDT Hospital Encounter ENDO [facility], Endoscopy Room [facility] [address] [place] [address] Marcellus Thompson MD [address] [place] [address] 12/15/2023 2:00 PM EDT - 12/15/2023 2:30 PM EDT Surgery ENDO [facility], Endoscopy Room [facility] [address] [place] [phone] Marcellus Thompson MD [address] [place] [address] COLONOSCOPY FLEXIBLE PROXIMAL DIAGNOSTIC 12/21/2023 11:00 AM EDT Office Visit Cardiology, [facility] [address] [place] [address] Pennie Naranjo CRNP [address] [place] [address] 01/11/2024 11:30 AM EDT Telemedicine Interventional Pain Center, [facility] [address] [place] [address] Lisandra Murguia PA-C [address] [place] [address] 01/13/2024 10:30 AM EDT Office Visit Nephrology, [facility] [address] [place] [address] ZeLois hager PA-C [address] [facility] [place] [address] Scheduled Orders Name Type Priority Associated Diagnoses Orde r Schedule COMPREHENSIVE METABOLIC PANEL Lab Routine Dyslipidemia, goal LDL below 70 Expected: 10/30/2023 (Approximate), Expires: 10/16/2024 LIPID PANEL WITH DIRECT LDL IF TG IS HIGH Lab Routine Dyslipidemia, goal LDL below 70 Expected: 10/23/2023 (Approximate), Expires: 10/22/2024 CBC Lab Routine Dyslipidemia, goal LDL below 70 Expected: 10/23/2023 (Approximate), Expires: 10/22/2024 MAGNESIUM Lab Routine Gastroesophageal reflux disease without esophagitis Expected: 10/23/2023 (Approximate), Expires: 10/22/2024 VITAMIN B12 Lab Routine Gastroesophageal reflux disease without esophagitis Expected: 10/23/2023 (Approximate), Expires: 10/22/2024 Scheduled Procedures Name Priority Associated Diagnoses Date/Ti me COLONOSCOPY FLEXIBLE PROXIMAL DIAGNOSTIC Recall History of colon polyps 12/15/2023 2:00 PM EDT Health Maintenance Due Date Last Done Comments COVID-19 Vaccine ( season) 2023 08/05/2022, 01/01/2022, 06/19/2021, Additional history exists COLONOSCOPY-EVERY 3 YRS AGES 18-100 06/05/2023 06/05/2020, 06/05/2020, 02/08/2017, Additional history exists Albumin/Creatinine Ratio 10/22/2023 10/22/2022, 0 04/2022 Depression Screening 11/11/2023 11/11/2022 GFR 01/04/2024 07/05/2023, 06/20, 06/28/2023, Additional history exists CKD PHOS USE SMARTSET 56716 06/11/2024 06/11/2023 HbA1c 06/11/2024 06/11/2023, 04/2022, 04/02/2021, Additional history exists CKD HGB USE SMARTSET 59920 07/05/202407/05, 06/28/2023, 10/22/2022, Additional history exists DTaP,Tdap,and Td Vaccines (4 - Td or Tdap) 06/12/2033 06/12/2023, 11/16/2018, 04/18/2008 Zoster Vaccines Completed 12/06/2019, 09/20, 01/11/2014 Pneumococcal Vaccine: 65+ Years Completed 04/19/2020, 01/30/2019, 12/20/2008 Influenza Vaccine (FLU shot) Completed 10/2022, 05/28/2022, 05/28/2022, Additional history exists GARDASIL-HPV IMMUNIZATION SERIES Aged Out No longer eligible based on patient's age to complete this topic Hepatitis B Aged Out No longer eligi ble based on patient's age to complete this topic MENINGOCOCCAL (MENACTRA/MENVEO) Aged Out No longer eligible based on patient's age to complete this topic documented as of this encounter Medical Devices Implanted Type Area Embalmer/Funeral Director Device Identifier Shelf Expiration Date Model / Serial / Lot Mesh Preshaped Large - [id number] Implanted:Qty : 1 on 12/31/2014 by Jj Weston MD at OR [facility] Right: Groin CR BARD : DAVOL 09/19/2018 [id number] / / [id number] Suture [place] Dbl Load 4.75mm - [id number] Implanted:Qty : 1 on 03/15/2020 by Kar Berry DO at OR [facility] Right: Shoulder [employer] 12/18/2021 [id number] / / [id number] documented as of this encounter Visit Diagnoses Diagnosis Dyslipidemia, goal LDL below 70 Other and unspecified hyperlipidemia Gastroesophageal reflux disease without esophagitis Esophageal reflux History of colon polyps Personal history of colonic polyps documented in this encounter Advance Directives Latest Code Status on File Code Status Date Activated Date Inactivated Comments Full Code 11/23/2012 8:27 PM 11/24/2012 8:07 PM This or emilia reflects the patients wishes and were consensually agreed upon. Question Answer Comments Discussion of Advance Directives occurred with: Patient/Family Care Teams Plant Operator/Shift Supervisor Relationship Specialty Start Date End Date Sabino Whittington MD [address] [place] [address] [place] [address] PCP - General Family Medicine 01/21/21 documented as of this encounter
--- OUTSIDE RECORDS SUMMARY | 2024-02-04 05:00 | External Medical Summary ---
Author Name Unknown Address Unknown Organization [id number]:[facility] - [address] [place] [address] Laboratory Report Ordering Provider Test Date Status MICKI HAIDER 10/19/2023 12:25:29 Final Observation Date Value Abnormality Reference (Units ) Status Magnesium 10/19/2023 12:25:29 2.2 1.5-2.6 (m g/dL) Final Performing Location [facility] - [address] [place] [address]
--- OUTSIDE RECORDS SUMMARY | 2024-02-04 05:00 | External Medical Summary ---
Author Name Unknown Address Unknown Organization [id number]:[facility]ATORY [facility] [place] [address] [place] [address] Laboratory Report Ordering Provider Test Date Status MICKI HAIDER 10/19/2023 12:25:29 Final Observation Date Value Abnormality Reference (Units ) Status Triglyceride 10/19/2023 12:25:29 220 Above high normal <=174 (mg/dL) Final Triglyceride Reference Range s (mg/dL):
<150 Acceptable
150-174 Borderline high
175-499 High
>=500 Very high Cholesterol 10/19/2023 12:25:29 145 <200 (mg /dL) Final Total Cholesterol Reference Ranges (mg/dL):
<200 Desirable
200-239 Borderline high
>=240 High HDL 10/19/2023 12:25:29 37 Below low normal >39 (mg/dL) Final HDL Cholesterol Reference Ra nges (mg/dL):
>=60 High (Desirable)
<50 Low (Undesirable) For Females
<40 Low (Undesirable) For Males NON-HDL CHOLESTEROL 10/19/2023 12:25:29 108 <=159 (mg/dL) Final Non-HDL Cholesterol Referenc e Range (mg/dL):
<100 Target level for high risk ASCVD patient
<130 Optimal for general population
130-159 Near optimal for general population
160-189 Borderline High
190-219 High
>=220 Very High Performing Location [facility] - [address] [place] [address]
--- OUTSIDE RECORDS SUMMARY | 2024-02-04 05:00 | External Medical Summary | Summary of Care ---
Author Name Unknown Organization [facility] Address [address] [facility] [address] Phone [phone] Care Team Providers Care Dip Painter Name Role Phone Sabino Izaguirre MD Primary Care Provide r Encounter Details Date Type Department Care Team (Late st Contact Info) Description 10/19/2023 1:00 PM EST Immunization Ancillary [address] [place] [address] [facility] Covid19 Vaccine [address] [place] [address] Arrived Allergies Active Allergy Reactions Criticality Noted Date Comments Enalapril Maleate Cough 11/12/2014 documented as of this encounter (statuses as of 10/19/2023) Medications Medication Sig Dispensed Refills Start Date [...] Sublingual Tablet Sublingual (Nitrostat)Indication s:Coronary atherosclerosis of [place] coronary artery,Stable angina PLACE 1 TABLET UNDER [...] as of this encounter (statuses as of 10/19/2023) Active Problems Problem Noted Date Diagnosed Date [...] Impotence of organic origin 04/18/2008 Atherosclerosis of [place] co ronary artery of [place] heart with stable angina pectoris 01/01/2008 S/P angioplasty with stent 06/30/2006 Esophageal reflux 10/29/2005 ADVANCE DIRECTIVE INFORMATION 08/21/2005 Overview: No, Advance Directive brochure given to patient at prior appointment. documented as of this encounter (statuses as of 10/19/2023) Resolved Problems Problem Noted Date Diagnosed Date Resolved Date Cough due to RANDALL inhibitor 11/12/2014 0 01/30/2019 Hyperkalemia 11/12/2014 11/16/2018 Pre-operative cardiovascular examination 09/11/2014 11/12/2014 [employer] Other*[id number] 11/23/2012 10/27/2016 Overview: Study Title: Genomic Markers for Patients with Cardiovascular Disease Project # [id number] Canvas Repairer: Laine Cadena MD [phone] Abnormal stress echocardiogram 11/17/2012 01/30/2019 Impotence of organic origin 04/18/2008 11/16/2018 Chest pain 08/31/2006 01/30/2019 HIP & THIGH INJURY NOS 12/05/200401/30 Rosacea 02/23/2001 01/30/2019 Dyslipidemia, goal to be determined 08/29/2009 Overview: Per Lipid Taxonomy. HYPERTENSION NOS 08/08/2009 Overview: Modified per HTN protocol #16. documented as of this encounter (statuses as of 10/19/2023) Immunizations Name Administration Dates Next Due COVID-19 mRNA, LNP-s, No Pre serve, 2-Dose Series (SchoolOut) 01/01/2022,06/19/2021,11/25/2020,10/21 COVID-19, MRNA-LNP, 23-24, P F, 30 [...] on file documented as of this encounter Plan of Treatment Upcoming Encounters Date Type Department Care Team (Latest Contact Info) Description 11/15/2023 2:00 PM EST Nurse Only Ancillary [address] [place] [address] [place], Nurse [address] [place] [address] 11/17/2023 11:40 AM EST Office Visit Otolaryngology [facility] [address] [place] [address] Renata Garcia PA-C [address] [place] [address] 11/25/2023 2:00 PM EST Imaging Cardiac Studies, [facility] [address] [place] [address] 12/15/2023 2:00 PM EDT Hospital Encounter ENDO [facility], Endoscopy Room [facility] [address] [place] [phone] Marcellus Thompson MD [address] [place] [address] 12/15/2023 2:00 PM EDT - 12/15/2023 2:30 PM EDT Surgery ENDO [facility], Endoscopy Room [facility] [address] [place] [phone] Marcellus Thompson MD [address] [place] [address] COLONOSCOPY FLEXIBLE PROXIMAL DIAGNOSTIC 12/21/2023 11:00 AM EDT Office Visit Cardiology, [facility] [address] [place] [address] Pennie Naranjo CRNP [address] [place] [address] 01/11/2024 11:30 AM EDT Telemedicine Interventional Pain Center, [facility] [address] [place] [address] Lisandra Murguia PA-C [address] [place] [address] 01/13/2024 10:30 AM EDT Office Visit Nephrology, [facility] [address] [place] [address] Lois Mcclendon PA-C [address] [place] [address] Scheduled Procedures Name Priority Associated Diagnoses Date/Ti me COLONOSCOPY FLEXIBLE PROXIMAL DIAGNOSTIC Recall History of colon polyps 12/15/2023 2:00 PM EDT Health Maintenance Due Date Last Done Comments COVID-19 Vaccine ( season) 2023 10/19/2023, 08/05/2022, 01/01/2022, Additional history exists COLONOSCOPY-EVERY 3 YRS AGES 18-100 06/05/2023 06/05/2020, 06/05/2020, 02/08/2017, Additional history exists Albumin/Creatinine Ratio 10/22/2023 10/22/2022, 090 04/2022 Depression Screening 11/11/2023 11/11/2022 GFR 01/04/2024 07/05/2023, 06/20, 06/28/2023, Additional history exists CKD PHOS USE SMARTSET 95136 06/11/2024 06/11/2023 HbA1c 06/11/2024 06/11/2023, 090 04/2022, 04/02/2021, Additional history exists CKD HGB USE SMARTSET 85463 07/05/202407/05, 06/28/2023, 10/22/2022, Additional history exists DTaP,Tdap,and [...] this encounter Medical Devices Implanted Type Area Gas And Oil Checker Device Identifier Shelf Expiration Date Model / Serial / Lot Mesh Preshaped Large - [id number] Implanted:Qty : 1 on 12/31/2014 by Jj Weston MD at OR [facility] Right: Groin CR BARD : DAVOL 09/19/2018 [id number] / / [id number] Suture [place] Dbl Load 4.75mm - [id number] Implanted:Qty : 1 on 03/15/2020 by Kar Berry DO at OR [facility] Right: Shoulder [employer] 12/18/2021 [id number] / / [id number] documented as of this encounter Advance Directives Latest Code Status on File Code Status Date Activated Date Inactivated Comments Full Code 11/23/2012 8:27 PM 11/24/2012 8:07 PM This or emilia reflects the patients wishes and were consensually agreed upon. Question Answer Comments Discussion of Advance Directives occurred with: Patient/Family Care Teams Dip Painter Relationship Specialty Start Date End Date Sabino Izaguirre MD [address] [place] [address] [place] [phone] PCP - General Family Medicine 01/21/21 documented as of this encounter
--- OUTSIDE RECORDS SUMMARY | 2024-02-04 05:00 | External Medical Summary ---
Author Name Unknown Address Unknown Organization K01:LABORATORY [facility] [place] - [address] [facility] [address] Laboratory Report Ordering Provider Test Date Status PK PEDRAZA 10/06/2023 18:12:00 Nakita l Observation Date Value Abnormality Reference (Units ) Status SARS Coronavirus 2 10/06/2023 18:12:00 Negative N egative Final No SARS-CoV2 Coronavirus RNA detected by PCR (amplified probe).
This express test was developed and its performance characteristics determined by [facility]. It has not been cleared or approved by the U.S. Food and Drug Administration (FDA). FDA does not require this test to go thru premarket FDA review. This test is used for clinical purposes. It should not be regarded as investigational or for research. This laboratory is certified under the Clinical Laboratory Improvement Amendments (CLIA) as qualified to perform high complexity clinical laboratory testing.

This test is a nucleic acid amplification test (NAAT), a reverse transcriptase polymerase chain reaction (RT-PCR) test, or a Centers for Disease Control-acceptable equivalent. The test is performed in a high complexity Clinical Laboratory Improvement Amendments-(CLIA) certified laboratory. The test is acceptable for SARS-CoV-2 diagnosis, surveillance, and travel within the [place] and to most countries. Please check with local testing authorities about requirements before travel.

The validation of bronchial specimens, tracheal aspirates, and sputum for this assay was developed and performance characteristics determined by [facility]. The validation of alternate specimen types has not been cleared or approved by the U.S. Food and Drug Administration (FDA). It has been determined that such clearance is not necessary. Influenza virus A RNA [Prese nce] in Specimen by [facility] with probe detection 10/06/2023 18:12:00 Negative Negative Final No Influenza A RNA detected by PCR (amplified probe) Influenza virus B RNA [Prese nce] in Specimen by [facility] with probe detection 10/06/2023 18:12:00 Negative Negative Final No Influenza B RNA detected by PCR (amplified probe) Respiratory syncytial virus RNA [Identifier] in Specimen by [facility] with probe detection 10/06/2023 18:12:00 Negative Negative Final No Respiratory Syncytial Vir us RNA detected by PCR (amplified probe) Performing Location [address]ATORY [address] [facility] [address]
--- OUTSIDE RECORDS SUMMARY | 2024-02-04 05:00 | External Medical Summary ---
Author Name Unknown Address Unknown Organization K01:[facility] [place] [address] [place] [place] [address] Laboratory Report Ordering Provider Test Date Status MICKI HAIDER 10/19/2023 12:25:29 Final Observation Date Value Abnormality Reference (Units ) Status Vitamin B12 10/19/2023 12:25:29 [id number] (pg/mL) Final Performing Location [facility] - [address] [place] [address]
--- OUTSIDE RECORDS SUMMARY | 2024-02-04 05:00 | External Medical Summary ---
Author Name Unknown Address Unknown Organization K01:[facility]ATORY [facility] [place] [address] [place] [address] Laboratory Report Ordering Provider Test Date Status MICKI HAIDER 10/19/2023 12:25:29 Final Observation Date Value Abnormality Reference (Units ) Status LDL, (direct) 10/19/2023 12:25:29 71 <=129 (mg/dL) Final LDL Cholesterol Reference Ra nges (mg/dL):
<70 Target level for high risk ASCVD patient
<100 Optimal for general population
100-129 Near optimal for general population
130-159 Borderline high
160-189 High
>=190 Very high Performing Location [facility] - [address] [place] [address]
--- OUTSIDE RECORDS SUMMARY | 2024-02-04 05:00 | External Medical Summary ---
Author Name Unknown Address Unknown Organization K01:LABORATORY [facility] [place] - [address] [place] [address] Laboratory Report Ordering Provider Test Date Status MICKI HAIDER 10/19/2023 12:25:29 Final Observation Date Value Abnormality Reference (Units ) Status WBC, Total 10/19/2023 12:25:29 8.59 4.00-10.80 (K/uL) Final RBC 10/19/2023 12:25:29 4.74 4.50-5.25 (M/uL) Final Hemoglobin 10/19/2023 12:25:29 14.2 14.0-16.8 (g/dL) Final HCT 10/19/2023 12:25:29 43.0 40.0-48.4 (%) Final MCV 10/19/2023 12:25:29 90.7 82.0-99.5 (fL) Final MCH 10/19/2023 12:25:29 30.0 27.0-34.0 (pg) Final MCHC 10/19/2023 12:25:29 33.0 32.0-36.0 (g/dL) Final RDW 10/19/2023 12:25:29 12.9 11.5-15.5 (%) Final Platelets 10/19/2023 12:25:29 283 140-400 (K/uL) Final MPV 10/19/2023 12:25:29 12.0 6.6-11.1 (fL) Final Nucleated erythrocytes/100 leukocytes [Ratio] in Blood by Automated count 10/19/2023 12:25:29 0 <=0 (/100 WBCs) Final Performing Location LABORATORY [facility] [place] - [address] [place] [address]
--- OUTSIDE RECORDS SUMMARY | 2024-02-04 05:00 | External Medical Summary | Summary of Care ---
Author Name Unknown Organization [facility] Address [address] [facility] [place] [address] Phone [phone] Care Team Providers Care Supervisor Process Testing Name Role Phone Sabino Izaguirre MD Primary Care Provide r Encounter Details Date Type Department Care Team (Late st Contact Info) Description 10/18/2023 Orders Only PATIENT PORTAL DO NOT DELETE THIS DEPT USED BY [place] [id number] Allergies Active Allergy Reactions Criticality Noted Date Comments Enalapril Maleate Cough 11/12/2014 documented as of this encounter (statuses as of 10/18/2023) Medications Medication Sig Dispensed Refills Start Date [...] Sublingual Tablet Sublingual (Nitrostat)Indication s:Coronary atherosclerosis of [place] coronary artery,Stable angina PLACE 1 TABLET UNDER [...] IN THE MORNING 90 Tablet 1 10/16/2023 Active Famotidine 20 MG Oral Tablet (Pepcid)Indications:G astroesophageal reflux disease without esophagitis TAKE ONE TABLET BY MOUTH TWICE A DAY 180 Tablet 1 10/16/2023 5 Active documented as of this encounter (statuses as of 10/18/2023) Active Problems Problem Noted Date Diagnosed Date [...] Impotence of organic origin 04/18/2008 Atherosclerosis of [place] co ronary artery of [place] heart with stable angina pectoris 01/01/2008 S/P angioplasty with stent 06/30/2006 Esophageal reflux 10/29/2005 ADVANCE DIRECTIVE INFORMATION 08/21/2005 Overview: No, Advance Directive brochure given to patient at prior appointment. documented as of this encounter (statuses as of 10/18/2023) Resolved Problems Problem Noted Date Diagnosed Date Resolved Date Cough due to RANDALL inhibitor 11/12/2014 0 01/30/2019 Hyperkalemia 11/12/2014 11/16/2018 Pre-operative cardiovascular examination 09/11/2014 11/12/2014 [employer] Other*[id number] 11/23/2012 10/27/2016 Overview: Study Title: Genomic Markers for Patients with Cardiovascular Disease Project # [id number] Mantel Craftsman: Laine Cadena MD [phone] Abnormal stress echocardiogram 11/17/2012 01/30/2019 Impotence of organic origin 04/18/2008 11/16/2018 Chest pain 08/31/2006 01/30/2019 HIP & THIGH INJURY NOS 12/05/200401/30 Rosacea 02/23/2001 01/30/2019 Dyslipidemia, goal to be determined 08/29/2009 Overview: Per Lipid Taxonomy. HYPERTENSION NOS 08/08/2009 Overview: Modified per HTN protocol #16. documented as of this encounter (statuses as of 10/18/2023) Immunizations Name Administration Dates Next Due COVID-19 mRNA, LNP-s, No Pre serve, 2-Dose Series ([place] [employer]) 01/01/2022,06/19/2021,11/25/2020,10/21 H1N1 2009 Influenza, IM 09/24/2009 Pneumococcal [...] Description 10/19/2023 1:00 PM EST Immunization Ancillary [address] [place] [address] [place], Covid19 Vaccine [address] [place] [address] 11/15/2023 2:00 PM EST Nurse Only Ancillary [address] [place] [address] [place], Nurse Annual [address] [place] [address] 11/17/2023 11:40 AM EST Office Visit Otolaryngology [facility] [address] [place] [address] Renata Garcia PA-C [address] [place] [address] 11/25/2023 2:00 PM EST Imaging Cardiac Studies, [facility] [address] [place] [address] 12/15/2023 2:00 PM EDT Hospital Encounter ENDO [facility], Endoscopy Room [facility] [address] [place] [phone] Marcellus Thompson MD [address] [place] [address] 12/15/2023 2:00 PM EDT - 12/15/2023 2:30 PM EDT Surgery ENDO [facility], Endoscopy Room [facility] [address] [place] [phone] Marcellus Thompson MD [address] [place] [address] COLONOSCOPY FLEXIBLE PROXIMAL DIAGNOSTIC 12/21/2023 11:00 AM EDT Office Visit Cardiology, [facility] [address] [place] [address] Pennie Naranjo CRNP [address] [place] [address] 01/11/2024 11:30 AM EDT Telemedicine Interventional Pain Center, [facility] [address] [place] [address] Lisandra Murguia PA-C [address] [place] [address] 01/13/2024 10:30 AM EDT [facility] [place] [address] Lois Mcclendon PA-C [address] [place] [address] Scheduled Procedures Name Priority Associated Diagnoses Date/Ti me COLONOSCOPY FLEXIBLE PROXIMAL DIAGNOSTIC Recall History of colon polyps 12/15/2023 2:00 PM EDT Health Maintenance Due Date Last Done Comments COVID-19 Vaccine (2022- season) 2023 08/05/2022, 01/01/2022, 06/19/2021, Additional history exists COLONOSCOPY-EVERY 3 YRS AGES 18-100 06/05/2023 06/05/2020, 06/05/2020, 02/08/2017, Additional history exists Albumin/Creatinine Ratio 10/22/2023 10/22/2022, 09/0 04/2022 Depression Screening 11/11/2023 11/11/2022 GFR 01/04/2024 07/05/2023, 06/20, 06/28/2023, Additional history exists CKD PHOS USE SMARTSET 02969 06/11/2024 06/11/2023 HbA1c 06/11/2024 06/11/2023, 09/0 04/2022, 04/02/2021, Additional history exists CKD HGB USE SMARTSET 34961 07/05/202407/05, 06/28/2023, 10/22/2022, Additional history exists DTaP,Tdap,and [...] this encounter Medical Devices Implanted Type Area Stock Control Supervisor Device Identifier Shelf Expiration Date Model / Serial / Lot Mesh Preshaped Large - [id number] Implanted:Qty : 1 on 12/31/2014 by Jj Weston MD at OR [facility] Right: Groin CR BARD : DAVOL 09/19/2018 [id number] / / [id number] Suture [place] Dbl Load 4.75mm - [id number] Implanted:Qty : 1 on 03/15/2020 by Kar Berry DO at OR [facility] Right: Shoulder [employer] 12/18/2021 [id number]- [id number] / / [id number] documented as of this encounter Advance Directives Latest Code Status on File Code Status Date Activated Date Inactivated Comments Full Code 11/23/2012 8:27 PM 11/24/2012 8:07 PM This or emilia reflects the patients wishes and were consensually agreed upon. Question Answer Comments Discussion of Advance Directives occurred with: Patient/Family Care Teams Supervisor Process Testing Relationship Specialty Start Date End Date Sabino Izaguirre MD [address] [place] [address] [place] [phone] PCP - General Family Medicine 01/21/21 documented as of this encounter
--- OUTSIDE RECORDS SUMMARY | 2024-02-04 05:00 | External Medical Summary | Summary of Care ---
Author Name Unknown Organization [facility] [address] [facility] [address] Phone [phone] Care Team Providers Care Driver Engineer Name Role Phone Sabino Izaguirre MD Primary Care Provide r Reason for Visit * Reason Comments Dosage Adjustment Via Phone (anticoag Cl inic) Hypertension Encounter Details Date Type Department Care Team (Late st Contact Info) Description 10/06/2023 1:30 PM [facility] Telemedicine Pharmacy, [address] [place] [address] [place] [address] HTN, GOAL BELOW 140/90* Allergies Active Allergy Reactions Criticality Noted Date Comments Enalapril Maleate Cough 11/12/2014 documented as of this encounter (statuses as of 10/06/2023) Medications Medication Sig Dispensed Refills Start Date [...] Sublingual Tablet Sublingual (Nitrostat)Indication s:Coronary atherosclerosis of [place] coronary artery,Stable angina PLACE 1 TABLET UNDER [...] DAY 100 Tablet 3 09/17/2022 4 Active Rosuvastatin Calcium 40 MG Oral Tablet (Crestor)Indications: Dyslipidemia, goal LDL below 70 TAKE ONE TABLET BY MOUTH IN THE MORNING 90 Tablet 3 08/27/2022 4 Active Famotidine 20 MG Oral Tablet (Pepcid)Indications:G astroesophageal reflux disease without esophagitis TAKE ONE TABLET BY MOUTH TWICE A DAY 180 Tablet 3 08/05/2022 4 Active Gabapentin 100 MG Oral Capsule [...] THE MORNING 100 Tablet 1 09/14/2023 Active documented as of this encounter (statuses as of 10/06/2023) Active Problems Problem Noted Date Diagnosed Date [...] Impotence of organic origin 04/18/2008 Atherosclerosis of [place] co ronary artery of [place] heart with stable angina pectoris 01/01/2008 S/P angioplasty with stent 06/30/2006 Esophageal reflux 10/29/2005 ADVANCE DIRECTIVE INFORMATION 08/21/2005 Overview: No, Advance Directive brochure given to patient at prior appointment. documented as of this encounter (statuses as of 10/06/2023) Resolved Problems Problem Noted Date Diagnosed Date Resolved Date Cough due to RANDALL inhibitor 11/12/2014 0 01/30/2019 Hyperkalemia 11/12/2014 11/16/2018 Pre-operative cardiovascular examination 09/11/2014 11/12/2014 [employer] Other*[id number] 11/23/2012 10/27/2016 Overview: Study Title: Genomic Markers for Patients with Cardiovascular Disease Project # [id number] [employer] Supervisor: Laine Cadena MD [phone] Abnormal stress echocardiogram 11/17/2012 01/30/2019 Impotence of organic origin 04/18/2008 11/16/2018 Chest pain 08/31/2006 01/30/2019 HIP & THIGH INJURY NOS 12/05/200401/30 Rosacea 02/23/2001 01/30/2019 Dyslipidemia, goal to be determined 08/29/2009 Overview: Per Lipid Taxonomy. HYPERTENSION NOS 08/08/2009 Overview: Modified per HTN protocol #16. documented as of this encounter (statuses as of 10/06/2023) Immunizations Name Administration Dates Next Due COVID-19 mRNA, LNP-s, No Pre serve, 2-Dose Series ([employer]) 01/01/2022,06/19/2021,11/25/2020,10/21 H1N1 2009 Influenza, IM 09/24/2009 Pneumococcal [...] Split, I IV3, With Preserve, Inj 07/04/2015,07/13/2014,07/12/2013,06/20,06/23/2011,07/23/2010,07/05/20 Seasonal Influenza, Triv[place] t, High Dose, No [...] this encounter Progress Notes * Jazz Gibbons, [facility] - 10/06/2023 1:32 PM EST [facility] - Hypertension Management This patient was contacted as part of the [facility] Nephrology 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 Blood Pressure Goal: 130/80 mmHg Type of Alert: n/a Current Hypertension Medications: Torsemide 5 mg daily Amlodipine 5 mg BID Metoprolol ER 25 mg daily HCTZ 25 mg daily Losartan 25 mg daily Spironolactone 25mg daily Previous antihypertensive use: n/a Experiencing symptoms related to elevated BP: No BP Readings from Last 3 Encounters: 09/09/23 114/69 07/01/23 130/70 06/15/23 120/72 Pulse Readings from Last 3 Encounters: 09/09/23 58 07/01/23 62 06/15/23 68 Recent Labs Units 07/05/23 0000 07/01/23 1437 06/28/23 0000 06/11/23 1106 03/25/23 1217 SODIUM - [facility] mmol/L -- 140 -- 137 140 POTASSIUM - [facility] mmol/L -- 4.3 -- 4.7 4.7 POTASSIUM-OUTSIDE LAB MMOL/L 4.0 -- 4.2 -- -- CHLORIDE - [facility] mmol/L -- 106 -- 103 104 CO2 - [facility] mmol/L -- 21* -- 22 22 CREATININE - [facility] mg/dL -- 1.3* -- 1.6* 1.5* CREATININE-OUTSIDE LAB MG/DL 1.34* -- 1.54* -- -- BUN - [facility] mg/dL -- 29* -- 36* 36* ASSESSMENT & PLAN: Systolic Diastolic Pulse Systolic Diastolic 130 76 Average 128 72 128 68 124 76 High 76 76 124 69 Low 68 68 135 70 Range 8 8 Count 5 5 09/26/23 09:21 09/27/23 23:07 09/29/23 09/30/23 08:46 10/02/23 10:54 Systolic BP 135 mm/Hg [1] 124 mm/Hg [1] 124 mm/Hg [1] 128 mm/Hg [1] 130 mm/Hg [1] Diastolic BP 70 mm/Hg [1] 69 mm/Hg [1] 76 mm/Hg [1] 68 mm/Hg [1] 76 mm/Hg [1] Pulse 46 bpm (L) [1] 61 bpm [1] 79 bpm [1] 51 bpm [1] 66 bpm [1] Note: Showing the most recent values for these dates. There are additional values that can be seen in Synopsis. (L): Data is abnormally low [1] CH:VITAL_READING_TYPE=SPOT CH:PERIPHERAL_BRAND=IHEALTH Called and spoke with patient and spouse. They report patient recently developed cold and flu s/sx.Coming into [facility] clinic today for acute visit. Last BP from 10/02. Average readings from 09/26-10/02 at goal. Discussed the need to check BP regularly in order to closely monitor. Patient expressed understanding and is agreeable. Jazz Gibbons [facility] Clinical Pharmacist - [facility] 10/06/2023, 1:32 PM documented in this encounter Plan of Treatment Upcoming Encounters Date Type Department Care Team (Latest Contact Info) Description 10/06/2023 6:00 PM EST Office Visit Family Medicine [address] [place] [phone] Sabino Izaguirre MD [address] [place] [address] [place] [address] 10/15/2023 10:00 AM EST Imaging Radiology [address] [place] [address] 10/15/2023 11:30 AM EST Imaging Radiology [address] [place] [address] 11/15/2023 2:00 PM EST Nurse Only Ancillary [address] [place] [address] [place], Nurse Annual [address] [place] [address] 11/17/2023 11:40 AM EST Office Visit Otolaryngology [facility] [address] [place] [address] Renata Garcia PA-C [address] [place] [address] 11/25/2023 2:00 PM EST Imaging Cardiac Studies, [facility] [address] [place] [address] 12/15/2023 2:00 PM EDT Hospital Encounter ENDO [facility], Endoscopy Room [facility] [address] [place] [phone] Marcellus Thompson MD [address] [place] [address] 12/15/2023 2:00 PM EDT - 12/15/2023 2:30 PM EDT Surgery ENDO [facility], Endoscopy Room [facility] [address] [place] [phone] Marcellus Thompson MD [address] [place] [address] COLONOSCOPY FLEXIBLE PROXIMAL DIAGNOSTIC 12/21/2023 11:00 AM EDT Office Visit Cardiology, [facility] [address] [place] [address] Pennie Naranjo CRNP [address] [place] [address] 01/11/2024 11:30 AM EDT Telemedicine Interventional Pain Center, [facility] [address] [place] [address] Lisandra Murguia PA-C [address] [place] [address] 01/13/2024 10:30 AM EDT Office Visit [facility]ph[facility] [address] [place], Lois Neff PA-C [address] [facility] [address] Scheduled Procedures Name Priority Associated Diagnoses Date/Ti [...] Additional history exists CKD PHOS USE SMARTSET 41443 06/11/2024 06/11/2023 HbA1c 06/11/2024 06/11/2023, 090 04/2022, 04/02/2021, Additional history exists CKD HGB USE SMARTSET 72711 07/05/202407/05, 06/28/2023, 10/22/2022, Additional history exists DTaP,Tdap,and [...] this encounter Medical Devices Implanted Type Area Brim Pouncer Machine Operator Device Identifier Shelf Expiration Date Model / Serial / Lot Mesh Preshaped Large - [id number] Implanted:Qty : 1 on 12/31/2014 by Jj Weston MD at OR [facility] Right: Groin CR BARD : DAVOL 09/19/2018 [id number] / / [id number] Suture [place] Dbl Load 4.75mm - [id number] Implanted:Qty : 1 on 03/15/2020 by Kar Berry DO at OR [facility] Right: Shoulder [employer] 12/18/2021 AR-2324BCT- 2 / / [id number] documented as of this encounter Visit Diagnoses [...] Advance Directives occurred with: Patient/Family Care Teams Driver Engineer Relationship Specialty Start Date End Date Sabino Izaguirre MD [address] [place] [address] [place] [address] PCP - General Family Medicine 01/21/21 documented as of this encounter
--- OUTSIDE RECORDS SUMMARY | 2024-02-04 05:00 | External Medical Summary ---
Author Name Unknown Address Unknown Organization K01:[facility] [place] [address] [facility] [address] Laboratory Report Ordering Provider Test Date Status MICKI HAIDER 10/19/2023 12:25:29 Final Observation Date Value Abnormality Reference (Units ) Status BUN 10/19/2023 12:25:29 25 Above high normal 6-20 (mg/dL) Final Creatinine 10/19/2023 12:25:29 1.4 Above high normal 0.6-1.2 (mg/dL) Final Glomerular filtration rate/1.73 sq M.predicted [Volume Rate/Area] in Serum, Plasma or Blood by Creatinine-based formula (CKD-EPI) 10/19/2023 12:25:29 55 Below low normal >=60 (mL/min) Final eGFR is calculated based on the CKD-EPI 2020 equation SODIUM 10/19/2023 12:25:29 140 135-146 (m mol/L) Final Potassium 10/19/2023 12:25:29 5.0 3.5-5.1 (m mol/L) Final Cl 10/19/2023 12:25:29 104 98-107 (mm ol/L) Final CO2 10/19/2023 12:25:29 26 22-32 (mmo l/L) Final Anion gap 10/19/2023 12:25:29 10 7-15 (mmol /L) Final Glucose 10/19/2023 12:25:29 100 70-120 (mg /dL) Final Albumin 10/19/2023 12:25:29 4.6 3.8-5.0 (g /dL) Final AST (Aspartate aminotransferase) 10/19/2023 12:25:29 25 10-50 (U/L) Final Alk Phos 10/19/2023 12:25:29 65 35-130 (U/ L) Final Bilirubin, Total 10/19/2023 12:25:29 0.4 <=1 .2 (mg/dL) Final Calcium 10/19/2023 12:25:29 9.7 8.4-10.2 ( mg/dL) Final Protein 10/19/2023 12:25:29 7.0 6.0-8.3 (g /dL) Final ALT (Alanine aminotransferase) 10/19/2023 12:25:29 32 10-50 (U/L) Final Performing Location [facility] [place] [facility] [address] [place]. [facility] [phone]
--- OUTSIDE RECORDS SUMMARY | 2024-02-04 05:00 | External Medical Summary | Summary of Care ---
Author Name Unknown Organization [facility] Address [address] [facility] [address] Phone [phone] Care Team Providers Care Mortgage Closing Clerk Name Role Phone Sabino Izaguirre MD Primary Care Provide r Reason for Visit * Reason Comments Outpatient Testing Encounter Details Date Type Department Care Team (Late st Contact Info) Description 10/19/2023 12:30 PM EST Laboratory Laboratory [address] [place] [phone] [place] [address] Dyslipidemia, goal LDL below 70; Gastroesophageal reflux [...] Sublingual Tablet Sublingual (Nitrostat)Indication s:Coronary atherosclerosis of [place] coronary artery,Stable angina PLACE 1 TABLET UNDER [...] Impotence of organic origin 04/18/2008 Atherosclerosis of [place] co ronary artery of [place] heart with stable angina pectoris 01/01/2008 S/P [...] cardiovascular examination 09/11/2014 11/12/2014 [employer] Other*[id number] 11/23/2012 10/27/2016 Overview: Study Title: [employer] Markers for Patients with Cardiovascular Disease Project # [id number] Marketing Communication Manager: Laine Cadena MD [phone] Abnormal stress echocardiogram 11/17/2012 01/30/2019 Impotence of [...] Description 10/19/2023 1:00 PM EST Immunization Ancillary [place] [address] [place] [address] [place], Covid19 Vaccine [address] [place] [address] Arrived 11/15/2023 2:00 PM EST Nurse Only Ancillary [address] [place] [address] [place], Nurse [address] [place] [address] 11/17/2023 11:40 AM EST Office Visit Otolaryngology [facility] [address] [place] [address] Renata Garcia PA-C [address] [place] [address] 11/25/2023 2:00 PM EST Imaging Cardiac Studies, [facility] [address] [place] [address] 12/15/2023 2:00 PM EDT Hospital Encounter [facility]O [facility], Endoscopy Room [facility] [address] [place] [phone] Marcellus Thompson MD [address] [place] [address] 12/15/2023 2:00 PM EDT - 12/15/2023 2:30 PM EDT Surgery ENDO [facility], Endoscopy Room [facility] [address] [place] [phone] Marcellus Thompson MD [address] [place] [address] COLONOSCOPY FLEXIBLE PROXIMAL DIAGNOSTIC 12/21/2023 11:00 AM EDT Office Visit Cardiology, [facility] [address] [place] [address] Pennie Naranjo CRNP [address] [place] [address] 01/11/2024 11:30 AM EDT Telemedicine Interventional Pain Center, [facility] [address] [place] [address] Lisandra Murguia PA-C [address] [place] [address] 01/13/2024 10:30 AM EDT Office Visit Nephrology, Abilio Barber [facility] [place] [address] ZemaLois hermosillo PA-C [address] [facility] [place] [address] Pending Results Name Type Priority Associated Diagnoses Date /Time COMPREHENSIVE METABOLIC PANEL Lab Routine Dyslipidemia, goal LDL below 70 10/19/2023 12:25 PM EST LIPID PANEL WITH DIRECT LDL IF TG IS HIGH Lab Routine Dyslipidemia, goal LDL below 70 10/19/2023 12:25 PM EST CBC Lab Routine Dyslipidemia, goal LDL below 70 10/19/2023 12:25 PM EST MAGNESIUM Lab Routine Gastroesophageal reflux disease without esophagitis 10/19/2023 12:25 PM EST VITAMIN B12 Lab Routine Gastroesophageal reflux disease without esophagitis 10/19/2023 12:25 PM EST Scheduled Procedures Name Priority Associated Diagnoses Date/Ti [...] Additional history exists CKD PHOS USE SMARTSET 59350 06/11/2024 06/11/2023 HbA1c 06/11/2024 06/11/2023, 09/0 04/2022, 04/02/2021, Additional history exists CKD HGB USE SMARTSET 30973 07/05/202407/05, 06/28/2023, 10/22/2022, Additional history exists DTaP,Tdap,and [...] this encounter Medical Devices Implanted Type Area Telephone Claims Representative Device Identifier Shelf Expiration Date Model / Serial / Lot Mesh Preshaped Large - [id number] Implanted:Qty : 1 on 12/31/2014 by Jj Weston MD at OR [facility] Right: Groin CR BARD : DAVOL 09/19/2018 [id number] / / [id number] Suture [place] Dbl Load 4.75mm - [id number] Implanted:Qty : 1 on 03/15/2020 by Kar Berry DO at OR [facility] Right: Shoulder [employer] 12/18/2021 AR-2324BCT- 2 / / [id number] documented as of this encounter Visit Diagnoses [...] Advance Directives occurred with: Patient/Family Care Teams Mortgage Closing Clerk Relationship Specialty Start Date End Date Sabino Izaguirre MD [address] [place] [address] [place] [phone] PCP - General Family Medicine 01/21/21 documented as of this encounter
--- OUTSIDE RECORDS SUMMARY | 2024-02-04 05:00 | External Medical Summary | Summary of Care ---
Author Name Unknown Organization [facility] Address [address] [facility] [place] [address] Phone [phone] Care Team Providers Care Edge Grinder Machine Name Role Phone Sabino Izaguirre MD Primary Care Provide r Reason for Visit * Reason Comments Acute Encounter Details Date Type Department Care Team (Late st Contact Info) Description 10/06/2023 6:00 PM EST Office Visit Family Medicine [address] [phone] Sabino Izaguirre MD [address] [place] [address] [place] [address] Acute cough* Allergies Active Allergy Reactions Criticality Noted Date [...] Sublingual Tablet Sublingual (Nitrostat)Indication s:Coronary atherosclerosis of [place] coronary artery,Stable angina PLACE 1 TABLET UNDER [...] THE MORNING 100 Tablet 1 09/14/2023 Active Amoxicillin-Pot Clavulanate 875-125 MG Oral Tablet (Augmentin)Indication s:Acute cough Take 1 Tablet by mouth in the morning and 1 Tablet before bedtime. Do all this for 7 days. 14 Tablet 0 10/06/2023 4 Active documented as of this encounter (statuses [...] Impotence of organic origin 04/18/2008 Atherosclerosis of [place] co ronary artery of [place] heart with stable angina pectoris 01/01/2008 S/P [...] cardiovascular examination 09/11/2014 11/12/2014 [employer] Other*[id number] 11/23/2012 10/27/2016 Overview: Study Title: Genomic Markers for Patients with Cardiovascular Disease Project # [id number] Sawmill Equipment Operator: Laine Cadena MD [phone] Abnormal stress echocardiogram 11/17/2012 01/30/2019 Impotence of [...] mRNA, LNP-s, No Pre serve, 2-Dose Series (Mimeo) 01/01/2022,06/19/2021,11/25/2020,10/21 H1N1 2009 Influenza, IM 09/24/2009 Pneumococcal [...] Sign Reading Time Taken Comments Blood Pressure 116/66 10/06/2023 5:54 PM EST Pulse 67 10/06/2023 5:54 PM EST Temperature 36.4 C (97.5 F) 10/06/2023 5:54 PM ES T Respiratory Rate - - Oxygen Saturation 94% 10/06/2023 5:54 PM EST Inhaled Oxygen Concentration - - Weight 98.2 kg (216 lb 6.4 oz) 10/06/2023 5:54 P M EST Height - - Body Mass Index 31.94 07/13/2023 11:46 AM EDT documented in this encounter Progress Notes * Sabino Izaguirre MD - 10/06/2023 5:42 PM EST Subjective: HPI: Enzo Shaw is a 67 year old male with hx of HLD, Prediabetes, Lung granuloma, CAD s/p stent (SERENITY), HTN, HLD, GERD, Stable ascending aortic aorta enlargement (4.1 CM), LVH, Bradycardia, CKD III, Cspine DDD seen for Cough, myalgia, sinus pressure, rhinorrhea for 4 days - denied any fever or SOB + sick contact -taking oTC cough meds Patient Active Problem List Diagnosis Code ADVANCE DIRECTIVE INFORMATION Esophageal reflux K21.9 S/P angioplasty with stent Z95.820 Atherosclerosis of [place] coronary artery of [place] heart with stable angina pectoris (HCC) I25.118 HTN, GOAL BELOW 140/90 I10 Dyslipidemia, goal LDL below 70 E78.5 Nodule of left lung R91.1 Stable angina I20.89 Hiatal hernia K44.9 Ascending aorta dilation (HCC) I77.810 Impotence of organic origin N52.9 Prediabetes [...] MOUTH IN THE MORNING 90 Tablet 3 Pantoprazole Sodium 40 MG Oral Tablet Delayed Release (Protonix) TAKE ONE TABLET BY MOUTH EVERY SOW964 Tablet 3 Rosuvastatin Calcium 40 MG Oral Tablet (Crestor) TAKE ONE TABLET BY MOUTH IN THE MORNING 90 Tablet 3 Famotidine 20 MG Oral Tablet (Pepcid) TAKE ONE TABLET BY MOUTH TWICE A DAY 180 Tablet 3 Gabapentin 100 MG Oral Capsule (Neurontin) Take 1 Capsule by mouth in the morning and 1 Capsule at noon and 1 Capsule before bedtime. 270 Capsule 1 hydroCHLOROthiazide 25 MG Oral Tablet (Hydrodiuril) Take 1 Tablet by mouth in the morning. 90 Tablet 3 Sildenafil Citrate 50 MG Oral Tablet TAKE ONE TABLET BY MOUTH 1 TO 4 HOURS BEFORE INTERCOURSE 4 Tablet 2 Metoprolol Succinate ER 25 MG Oral Tablet Extended Release 24 Hour (toPROL XL) Take 1 Tablet by mouth at bedtime. 90 Tablet 3 Clopidogrel Bisulfate 75 MG Oral Tablet (pLAVix) TAKE ONE TABLET BY MOUTH IN THE MORNING 100 Tablet1 Amoxicillin-Pot Clavulanate 875-125 MG Oral Tablet (Augmentin) Take 1 Tablet by mouth in the morning and 1 Tablet before bedtime. Do all this for 7 days. 14 Tablet 0 No current facility-administered medications for this visit. Past Medical History: Diagnosis Date Abnormal stress echocardiogram 11/17/2012 Calculus of kidney Coronary atherosclerosis of [place] coronary artery 01/01/2008 Cough due to RANDALL inhibitor 11/12/2014 Dyslipidemia, goal to be determined GERD (gastroesophageal reflux disease) HTN, goal to be determined Impotence of organic origin 04/18/2008 Rosacea S/P angioplasty with stent 09/10/05 Circumflex Past Surgical History: Procedure Laterality Date ARTHONATACHA,W/ROTATOR CUFF Right 03/15/2020 ARTHROSCOPY SHOULDER ROTATOR CUFF performed by Kar Berry DO at OR [facility] CARDIAC ANGIOPLASTY, PERCUTANEOUS, 1 ARTERY 11/23/2012 PTCA, CARDIAC ANGIOPLASTY, PERCUTANEOUS, 1 ARTERY performed by Roc Wilkinson MD at [facility]S [facility] COLONOSCOPY, DIAGNOSTIC (RECTUM) 08/07/2011 few diverticula COLONOSCOPY, DIAGNOSTIC (RECTUM) 02/08/2017 adenomatous & hyperplastic polyps, diverticulosis, repeat 3 yrs/COLONOSCOPY FLEXIBLE PROXIMAL DIAGNOSTIC performed by Pedro Mejia MD at ENDOSCOPY [facility] COLONOSCOPY, DIAGNOSTIC (RECTUM) 06/05/2020 hyperplastic polyp, repeat 1 yr / COLONOSCOPY FLEXIBLE PROXIMAL DIAGNOSTIC performed by Belkis Arambula DO at ENDOSCOPY [facility] CORONARY ANGIOGRAPHY W/LEFT HEART CATH 09/27/2013 CORONARY ANGIOGRAPHY W/LEFT HEART CATH performed by Yaneth Canada MD at CARDIAC [facility]S [facility] EGD, FLEXIBLE, W/BIOPSY 04/22/2007 GERD INJECT DX/THER SUBSTANCE INTERLAMINAR CERVICAL/THORACIC W IMAGE GUIDE 10/19/2022 INJECTION SPINE LUMBAR CERVICAL OR THORACIC performed by Leif Bass DO at OR [facility] INJECT DX/THER SUBSTANCE INTERLAMINAR CERVICAL/THORACIC W IMAGE GUIDE 02/04/2023 INJECTION SPINE LUMBAR CERVICAL OR THORACIC performed by Leif Bass DO at OR [facility] OTHER (INFORMATION) 1983 hernia repair- left inguinal REMOVE TONSILS & ADENOIDS, UNDER 12 REPAIR INITIAL INGUINAL HERNIA REDUCIBLE AGE 5 OR MORE Right 12/31/2014 12/31/2014 - - right REPAIR INITIAL INGUINAL HERNIA REDUCIBLE AGE 5 OR MORE performed by Jj Weston MD at OR [facility] REPAIR OF NASAL SEPTUM SHOULDER ARTHROSCOPY SURGERY Right 03/15/2020 ARTHROSCOPY SHOULDER DISTAL CLAVICLE RESECTION performed by Kar Berry DO at OR [facility] SHOULDER ARTHROSCOPY/DECOMPRESSION Right 03/15/2020 ARTHROSCOPY SHOULDER SUBACROMIAL DECOMPRESSION performed by Kar Berry DO at OR [facility] UMBIL HERNIA REPAIR (INCARCERATED) AGE 5+YR N/A 09/17/2014 09/17/2014 REPAIR UMBILICAL HERNIA AGE 5 OR OVER INCARCERATED performed by Jj Weston MD at [facility] Review of patient's allergies indicates: Allergen Reactions Enalapril Maleate Cough Family History Problem Relation Age of Onset Hypertension Mother Heart Disorder Mother [place] 60's Hypertension Father Heart Disorder Father [place] 50's Heart Disorder Brother Heart Disorder Brother Cancer Brother colon Allergies Son Allergies Son Other (Other) Son pt denies hx of skin cancer for parents Neurological Disorder Daughter 40 ?MS Social History Tobacco Use Smoking status: Never Smokeless tobacco: Never Substance Use Topics Alcohol use: Yes Alcohol/week: 5.8 standard drinks of alcohol Types: 7 5 oz of wine per week Comment: Once a month Vaping/E-Cigarette Use Vaping/E-Cigarette Use Never User Passive Exposure No Counseling Given? No Vaping/E-Cigarette Substances Vaping/E-Cigarette Devices ROS: -Per HPI OBJECTIVE: BP 116/66 | Pulse 67 | Temp 36.4 C (97.5 F) | Wt 98.2 kg (216 lb 6.4 oz) | SpO2 94% | BMI 31.94kg/m | BSA 2.19 m PHYSICAL EXAM: Lungs: CTA, no wheezing or crackles ASSESSMENT/PLAN: Advised the pt to continue mucinex and start flonase BID - if no improvement of sinus pressure then start augmentin Acute cough (Primary) - INFLUENZA A/B RSV SARS-COV2,PCR; Future; Expected date: 10/06/2023 - Amoxicillin-Pot Clavulanate 875-125 MG Oral Tablet (Augmentin); Take 1 Tablet by mouth in the morning and 1 Tablet before bedtime. Do all this for 7 days. Sabino Izaguirre MD Family medicine, [address] [place] [address] documented in this encounter Nursing Notes * Padmini Gordillo CMA - 10/06/2023 5:52 PM EST He is here for nasal congestions, cough, body ache, no fever. The mucus he coughs up is brown and he has a headache. This started on Wednesday. His grandson was sick and he had didn't have flu/covid or RSV but his mother did have COVID. No home testing done. He has been taking mucinex and then nyquil at night. Vicks vapor rub as well. documented in this encounter Plan of Treatment Upcoming Encounters Date Type Department Care Team (Latest Contact Info) Description 10/15/2023 10:00 AM EST Imaging Radiology [address] [place] [address] 10/15/2023 11:30 AM EST Imaging Radiology [address] [place] [address] 11/15/2023 2:00 PM EST Nurse Only Ancillary [address] [place] [address] [place], Nurse [address] [place] [address] 11/17/2023 11:40 AM EST Office Visit Otolaryngology [facility] [address] [place] [address] Renata Garcia PA-C [address] [place] [address] 11/25/2023 2:00 PM EST Imaging Cardiac Studies, [facility] [address] [place] [address] 12/15/2023 2:00 PM EDT Hospital Encounter ENDO OSSC, Endoscopy Room [facility] [address] [place] [phone] Marcellus Thompson MD [address] [place] [address] 12/15/2023 2:00 PM EDT - 12/15/2023 2:30 PM EDT Surgery ENDO OSSC, Endoscopy Room [facility] [address] [place] [phone] Marcellus Thompson MD [address] [place] [address] COLONOSCOPY FLEXIBLE PROXIMAL DIAGNOSTIC 12/21/2023 11:00 AM EDT Office Visit Cardiology, [facility] [address] [place] [address] Pennie Naranjo CRNP [address] [place] [address] 01/11/2024 11:30 AM EDT Telemedicine Interventional Pain Center, [facility] [address] [place] [address] Lisandra Murguia PA-C [address] [place] [address] 01/13/2024 10:30 AM EDT Office Visit Nephrology, Abilio [address] [place] [address] ZemaitisLois PA-C [address] [facility] [place] [address] Scheduled Orders Name Type Priority Associated Diagnoses Orde r Schedule INFLUENZA A/B RSV SARS-COV2,PCR Lab Routine Acute cough Expected: 10/06/2023 (Approximate), Expires: 10/05/2024 Scheduled Procedures Name Priority Associated Diagnoses Date/Ti [...] Additional history exists CKD PHOS USE SMARTSET 67905 06/11/2024 06/11/2023 HbA1c 06/11/2024 06/11/2023, 0 04/2022, 04/02/2021, Additional history exists CKD HGB USE SMARTSET 62297 07/05/202407/05, 06/28/2023, 10/22/2022, Additional history exists DTaP,Tdap,and [...] this encounter Medical Devices Implanted Type Area Turbine Assembler Device Identifier Shelf Expiration Date Model / Serial / Lot Mesh Preshaped Large - [id number] Implanted:Qty : 1 on 12/31/2014 by Jj Weston MD at OR [facility] Right: Groin CR BARD : DAVOL 09/19/2018 [id number] / / [id number] Suture [place] Dbl Load 4.75mm - [id number] Implanted:Qty : 1 on 03/15/2020 by Kar Berry DO at OR [facility] Right: Shoulder [employer] 12/18/2021 [id number]- [id number] / / [id number] documented as of this encounter Visit Diagnoses Diagnosis Acute cough- Primary History of colon polyps Personal history of colonic polyps documented in this encounter Advance Directives Latest Code Status on File Code Status Date Activated Date Inactivated Comments Full Code 11/23/2012 8:27 PM 11/24/2012 8:07 PM This or emilia reflects the patients wishes and were consensually agreed upon. Question Answer Comments Discussion of Advance Directives occurred with: Patient/Family Care Teams Edge Grinder Machine Relationship Specialty Start Date End Date Sabino Izaguirre MD [address] [place] [address] [place] [phone] PCP - General Family Medicine 01/21/21 documented as of this encounter"
--- OUTSIDE RECORDS SUMMARY | 2024-02-04 05:01 | External Medical Summary | Summary of Care ---
Author Name Unknown Organization [facility] Address [address] [place] [address] Phone [phone] Care Team Providers Care Managing Editor Name Role Phone Sabino Izaguirre MD Primary Care Provide r Reason for Visit * Reason Onset Date Comments Outpatient Testing 09/16/2023 Returning Call 09/16/2023 Encounter Details Date Type Department Care Team (Late st Contact Info) Description 09/16/2023 Telephone Nephrology, [facility] [address] [facility] [place] [address] Kriss Mendoza MD [address] [place] [address] Outpatient Testing; Returning Call Allergies Active Allergy Reactions Criticality Noted Date Comments Enalapril Maleate Cough 11/12/2014 documented as of this encounter (statuses as of 09/30/2023) Medications Medication Sig Dispensed Refills Start Date [...] Sublingual Tablet Sublingual (Nitrostat)Indication s:Coronary atherosclerosis of [place] coronary artery,Stable angina PLACE 1 TABLET UNDER [...] as of this encounter (statuses as of 09/30/2023) Active Problems Problem Noted Date Diagnosed Date [...] Impotence of organic origin 04/18/2008 Atherosclerosis of [place] co ronary artery of [place] heart with stable angina pectoris 01/01/2008 S/P angioplasty with stent 06/30/2006 Esophageal reflux 10/29/2005 ADVANCE DIRECTIVE INFORMATION 08/21/2005 Overview: No, Advance Directive brochure given to patient at prior appointment. documented as of this encounter (statuses as of 09/30/2023) Resolved Problems Problem Noted Date Diagnosed Date Resolved Date Cough due to RANDALL inhibitor 11/12/2014 0 01/30/2019 Hyperkalemia 11/12/2014 11/16/2018 Pre-operative cardiovascular examination 09/11/2014 11/12/2014 [employer] Other*[id number] 11/23/2012 10/27/2016 Overview: Study Title: Genomic Markers for Patients with Cardiovascular Disease Project # [id number] Coding Advisor: Laine Cadena MD [phone] Abnormal stress echocardiogram 11/17/2012 01/30/2019 Impotence of organic origin 04/18/2008 11/16/2018 Chest pain 08/31/2006 01/30/2019 HIP & THIGH INJURY NOS 12/05/200401/30 Rosacea 02/23/2001 01/30/2019 Dyslipidemia, goal to be determined 08/29/2009 Overview: Per Lipid Taxonomy. HYPERTENSION NOS 08/08/2009 Overview: Modified per HTN protocol #16. documented as of this encounter (statuses as of 09/30/2023) Immunizations Name Administration Dates Next Due COVID-19 mRNA, LNP-s, No Pre serve, 2-Dose Series (Garmor) 01/01/2022,06/19/2021,11/25/2020,10/21 H1N1 2009 Influenza, IM 09/24/2009 Pneumococcal [...] as of this encounter Miscellaneous Notes * Addendum Note - Carolina Hernandez RN - 09/30/2023 10:39 AM ESTAddended by: CAROLINA HERNANDEZ on: 09/30/2023 10:39 AM Modules accepted: Orders * Telephone Encounter - Carolina Hernandez RN - 09/30/2023 10:37 AM EST TE with pt regarding follow up testing. Pt states he does not have trouble sleeping and defers sleep study at this time. Aware of Renal scans ordered and Urorisk to be completed. Orders placed. * Telephone Encounter - Kriss Mendoza MD - 09/28/2023 11:20 AM EST Pls f/u w/ pt/ to disc recommendations below * Telephone Encounter - Aura Richey OSA - 09/24/2023 12:48 PM EST Patient's Pam returned your call to schedule whatever tests doctor is requesting. They aretraveling home from [place] and at the time of her call they were at the airport waiting to board [facility]. I told her that you would reach out to them at some point on Wednesday to discuss the tests that are required. * Telephone Encounter - Carolina Hernandez RN - 09/24/2023 9:16 AM EST LMAM with call back number regarding tests recommended. * Telephone Encounter - Carolina Hernandez RN - 09/17/2023 10:03 AM EST LMAM with call back number to discuss recommended tests. * Telephone Encounter - Kriss Mendoza MD - 09/16/2023 7:13 PM EST Not active on myG Follow up from recent OV: -resistant HTN suspect not controlled (often high at home) >>recommend further w/u >24 hr urine for creat/sodium >> but will do urorisk (see below) which also covers these >renovascular scan to look for renal artery stenosis >sleep study to evaluate for sleep apnea >> common in pts w/ resistant HTN Also hx of stone disease >recommend renal u/s to assess stone burden >recommend urorisk Pls update pt on above and place relevant orders documented in this encounter Plan of Treatment Upcoming Encounters Date Type Department Care Team (Latest Contact Info) Description 11/15/2023 2:00 PM EST Nurse Only Ancillary [address] [place] [address] [place], Nurse [address] [place] [address] 11/17/2023 11:40 AM EST Office Visit Otolaryngology [facility] [address] [place] [address] Renata Garcia PA-C [address] [place] [address] 11/25/2023 2:00 PM EST Imaging Cardiac Studies, [facility] [address] [place] [address] 12/15/2023 2:00 PM EDT Hospital Encounter ENDO OSSC, Endoscopy Room [facility] [address] [place] [phone] Marcellus Thompson MD [address] [place] [address] 12/15/2023 2:00 PM EDT - 12/15/2023 2:30 PM EDT Surgery ENDO OSSC, Endoscopy Room [facility] [address] [place] [phone] Marcellus Thompson MD [address] [place] [address] COLONOSCOPY FLEXIBLE PROXIMAL DIAGNOSTIC 12/21/2023 11:00 AM EDT Office Visit Cardiology, [facility] [address] [place] [address] Pennie Naranjo CRNP [address] [place] [address] 01/11/2024 11:30 AM EDT Telemedicine Interventional Pain Center, [facility] [address] [place] [address] Lisandra Murguia PA-C [address] [place] [address] 01/13/2024 10:30 AM EDT Office Visit Nephrology, [place] [place] [address] Zema[place]ois [place] PA-C [address] [place] [address] Scheduled Orders Name Type Priority Associated Diagnoses Orde r Schedule URORISK(R) DIAGNOSTIC PROFILE Lab Routine HTN, GOAL BELOW 140/90 Chronic kidney disease, stage 3a (HCC) Nephrolithiasis Expected: 09/30/2023 (Approximate), Expires: 09/30/2024 [facility] RENAL VASCULAR SCAN-COMPLETE Medical Imaging Routine HTN, GOAL BELOW 140/90 Chronic kidney disease, stage 3a (HCC) Nephrolithiasis Expected: 10/07/2023 (Approximate), Expires: 10/31/2024 [facility] Medical Imaging Routine HTN, GOAL BELOW 140/90 Chronic kidney disease, stage 3a (HCC) Nephrolithiasis Expected: 10/07/2023 (Approximate), Expires: 10/31/2024 Scheduled Procedures Name Priority Associated Diagnoses Date/Ti [...] Additional history exists CKD PHOS USE SMARTSET 74750 06/11/2024 06/11/2023 HbA1c 06/11/2024 06/11/2023, 09/0 04/2022, 04/02/2021, Additional history exists CKD HGB USE SMARTSET 06806 07/05/202407/05, 06/28/2023, 10/22/2022, Additional history exists DTaP,Tdap,and [...] this encounter Medical Devices Implanted Type Area Personal Development Coach Device Identifier Shelf Expiration Date Model / Serial / Lot Mesh Preshaped Large - [id number] Implanted:Qty : 1 on 12/31/2014 by Jj Weston MD at OR [facility] Right: Groin CR BARD : DAVOL 09/19/2018 [id number] / / [id number] Suture [place] Dbl Load 4.75mm - [id number] Implanted:Qty : 1 on 03/15/2020 by Kar Berry DO at OR [facility] Right: Shoulder [employer] 12/18/2021 AR-2324BCT- 2 / / [id number] documented as of this encounter Visit Diagnoses Diagnosis HTN, GOAL BELOW 140/90- Primary Unspecified essential hypertension Chronic kidney disease, stage 3a (HCC) Nephrolithiasis Calculus of kidney History of colon polyps Personal history of colonic polyps documented in this encounter Advance Directives Latest Code Status on File Code Status Date Activated Date Inactivated Comments Full Code 11/23/2012 8:27 PM 11/24/2012 8:07 PM This or emilia reflects the patients wishes and were consensually agreed upon. Question Answer Comments Discussion of Advance Directives occurred with: Patient/Family Care Teams Managing Editor Relationship Specialty Start Date End Date Sabino Izaguirre MD [address] [place] [address] [place] [address] PCP - General Family Medicine 01/21/21 documented as of this encounter
--- OUTSIDE RECORDS SUMMARY | 2024-02-04 05:01 | External Medical Summary ---
Author Name Unknown Address Unknown Organization : Laboratory Report Ordering Provider Test Date Status MARY MITTAL 10/04/2023 11:15:57 Final Observation Date Value Abnormality Reference (Units ) Status TOTAL URINE VOLUME 10/04/2023 11:15:57 TNP/990 ( L/day) Final
* Test Not Performed. *
* An accurate volume could not be *
* determined because of improper *
* collection and preparation of *
* sample. *

This test was developed and its analytical performance
characteristics have been determined by [facility]. It has not been cleared or approved by the
FDA. This assay has been validated pursuant to the CLIA
regulations and is used for clinical purposes. PH URINE 10/04/2023 11:15:57 DNRTNP Final CALCIUM, 24 HOUR URINE 10/04/2023 11:15:57 DNRTNP (mg/day) Final This test was developed and its analytical performance
characteristics have been determined by [facility]. It has not been cleared or approved by the
FDA. This assay has been validated pursuant to the CLIA
regulations and is used for clinical purposes. OXALATE, 24 HOUR URINE 10/04/2023 11:15:57 DNRTNP (mg/day) Final This test was developed and its analytical performance
characteristics have been determined by [facility]. It has not been cleared or approved by the
FDA. This assay has been validated pursuant to the CLIA
regulations and is used for clinical purposes. URIC ACID, 24 HOUR URINE 10/04/2023 11:15:57 DNRTNP (mg/day) Final This test was developed and its analytical performance
characteristics have been determined by [facility]. It has not been cleared or approved by the
FDA. This assay has been validated pursuant to the CLIA
regulations and is used for clinical purposes. CITRIC ACID, 24 HOUR URINE 10/04/2023 11:15:57 DNRTNP (mg/day) Final This test was developed and its analytical performance
characteristics have been determined by [facility]. It has not been cleared or approved by the
FDA. This assay has been validated pursuant to the CLIA
regulations and is used for clinical purposes. SODIUM, 24 HOUR URINE 10/04/2023 11:15:57 DNRTNP (mEq/day) Final This test was developed and its analytical performance
characteristics have been determined by [facility]. It has not been cleared or approved by the
FDA. This assay has been validated pursuant to the CLIA
regulations and is used for clinical purposes. SULFATE, 24 HOUR URINE 10/04/2023 11:15:57 DNRTNP (mmol/day) Final This test was developed and its analytical performance
characteristics have been determined by [facility]. It has not been cleared or approved by the
FDA. This assay has been validated pursuant to the CLIA
regulations and is used for clinical purposes. PHOSPHORUS, 24 HOUR URINE 10/04/2023 11:15:57 DNRTNP (mg/day) Final This test was developed and its analytical performance
characteristics have been determined by [facility]. It has not been cleared or approved by the
FDA. This assay has been validated pursuant to the CLIA
regulations and is used for clinical purposes. MAGNESIUM, 24 HOUR URINE 10/04/2023 11:15:57 DNRTNP (mg/day) Final This test was developed and its analytical performance
characteristics have been determined by [facility]
[employer]. It has not been cleared or approved by the
FDA. This assay has been validated pursuant to the CLIA
regulations and is used for clinical purposes. POTASSIUM, 24 HOUR URINE 10/04/2023 11:15:57 DNRTNP (mEq/day) Final This test was developed and its analytical performance
characteristics have been determined by [facility]. It has not been cleared or approved by the
FDA. This assay has been validated pursuant to the CLIA
regulations and is used for clinical purposes. CREATININE, 24 HOUR URINE 10/04/2023 11:15:57 DNRTNP (mg/day) Final This test was developed and its analytical performance
characteristics have been determined by [facility]
[employer]. It has not been cleared or approved by the
FDA. This assay has been validated pursuant to the CLIA
regulations and is used for clinical purposes. CALCIUM OXALATE 10/04/2023 11:15:57 DNRTNP Final BRUSHITE 10/04/2023 11:15:57 DNRTNP Final SODIUM URATE 10/04/2023 11:15:57 DNRTNP Final URIC ACID 10/04/2023 11:15:57 DNRTNP Final THE PATIENT HAS: 10/04/2023 11:15:57 DNRTNP Final SUPERSATURATION INDEX: 10/04/2023 11:15:57 DNRTNP Final SUSPECTED PROBLEM IS: 10/04/2023 11:15:57 DNRTNP Final COMMENTS 10/04/2023 11:15:57 DNRTNP Final Test performed by:
[facility] [employer] [facility]
[address] [facility]
[place] [address]

[phone]
Calender Machine Operator Helper: Angel Rodriguez M.D.
Test Reported by [facility],
[facility],
[address] [place], [place]
Candido Rodriguez M.D., Ph.D., Director of Laboratories
, [facility] [id number] Performing Location
--- OUTSIDE RECORDS SUMMARY | 2024-02-04 05:01 | External Medical Summary | Summary of Care ---
Author Name Unknown Organization [facility] Address [address] [place] [address] Phone [phone] Care Team Providers Care Motion Picture Set Worker Name Role Phone Sabino Izaguirre MD Primary Care Provide r Reason for Visit * Reason Onset Date Comments Outpatient Testing 09/16/2023 Returning Call 09/16/2023 Encounter Details Date Type Department Care Team (Late st Contact Info) Description 09/16/2023 [facility] [address] [facility] [place] [address] Kriss Mendoza MD [address] [place] [address] Outpatient Testing; Returning Call Allergies Active Allergy Reactions Criticality Noted Date Comments Enalapril Maleate Cough 11/12/2014 documented as of this encounter (statuses as of 09/24/2023) Medications Medication Sig Dispensed Refills Start Date [...] Sublingual Tablet Sublingual (Nitrostat)Indication s:Coronary atherosclerosis of [place] coronary artery,Stable angina PLACE 1 TABLET UNDER [...] as of this encounter (statuses as of 09/24/2023) Active Problems Problem Noted Date Diagnosed Date [...] Impotence of organic origin 04/18/2008 Atherosclerosis of [place] co ronary artery of [place] heart with stable angina pectoris 01/01/2008 S/P angioplasty with stent 06/30/2006 Esophageal reflux 10/29/2005 ADVANCE DIRECTIVE INFORMATION 08/21/2005 Overview: No, Advance Directive brochure given to patient at prior appointment. documented as of this encounter (statuses as of 09/24/2023) Resolved Problems Problem Noted Date Diagnosed Date Resolved Date Cough due to RANDALL inhibitor 11/12/2014 0 01/30/2019 Hyperkalemia 11/12/2014 11/16/2018 Pre-operative cardiovascular examination 09/11/2014 11/12/2014 [facility] Other*[id number] 11/23/2012 10/27/2016 Overview: Study Title: Genomic Markers for Patients with Cardiovascular Disease Project # [id number] Safety Analyst: Laine Cadena MD [phone] Abnormal stress echocardiogram 11/17/2012 01/30/2019 Impotence of organic origin 04/18/2008 11/16/2018 Chest pain 08/31/2006 01/30/2019 HIP & THIGH INJURY NOS 12/05/200401/30 Rosacea 02/23/2001 01/30/2019 Dyslipidemia, goal to be determined 08/29/2009 Overview: Per Lipid Taxonomy. HYPERTENSION NOS 08/08/2009 Overview: Modified per HTN protocol #16. documented as of this encounter (statuses as of 09/24/2023) Immunizations Name Administration Dates Next Due COVID-19 mRNA, LNP-s, No Pre serve, 2-Dose Series ([employer]) 01/01/2022,06/19/2021,11/25/2020,10/21 H1N1 2009 Influenza, IM 09/24/2009 Pneumococcal [...] encounter Miscellaneous Notes * Telephone Encounter - Aura Richey OSA - 09/24/2023 12:48 PM EST Patient's Pam returned your call to schedule whatever tests doctor is requesting. They aretraveling home from [place] and at the time of her call they were at the airport waiting to board [facility]. I told her that you would reach out to them at some point on Wednesday to discuss the tests that are required. * Telephone Encounter - Carolina Yepez RN - 09/24/2023 9:16 AM EST LMAM with call back number regarding tests recommended. * Telephone Encounter - Carolina Yepez RN - 09/17/2023 10:03 AM EST LMAM [...] 2:00 PM EST Nurse Only Ancillary [address] [place] [address] [place], Nurse [address] [place] [address] 11/17/2023 11:40 AM EST Office Visit Otolaryngology [facility] [address] [place] [address] Renata Garcia PA-C [address] [place] [address] 11/25/2023 2:00 PM EST Imaging Cardiac Studies, [facility] [address] [place] [address] 12/15/2023 2:00 PM EDT Hospital Encounter ENDO [facility], Endoscopy Room [facility] [address] [place] [address] Marcellus Thompson MD [address] [place] [address] 12/15/2023 2:00 PM EDT - 12/15/2023 2:30 PM EDT Surgery ENDO [facility], Endoscopy Room [facility] [address] [place] [address] Marcellus Thompson MD [address] [place] [address] COLONOSCOPY FLEXIBLE PROXIMAL DIAGNOSTIC 12/21/2023 11:00 AM EDT Office Visit Cardiology, [facility] [address] [place] [address] Pennie Naranjo CRNP [address] [place] [address] 01/11/2024 11:30 AM EDT Telemedicine Interventional Pain Center, [facility] [address] [place] [address] Lisandra Murguia PA-C [address] [place] [address] 01/13/2024 10:30 AM EDT Office Visit Nephrology, [place] [address] [place] [address] ZemaLois hermosillo PA-C [address] [place] [address] Scheduled Procedures Name Priority Associated Diagnoses Date/Ti [...] Additional history exists CKD PHOS USE SMARTSET 77732 06/11/2024 06/11/2023 HbA1c 06/11/2024 06/11/2023, 04/2022, 04/02/2021, Additional history exists CKD HGB USE SMARTSET 37797 07/05/202407/05, 06/28/2023, 10/22/2022, Additional history exists DTaP,Tdap,and [...] this encounter Medical Devices Implanted Type Area Flat Lock Operator Device Identifier Shelf Expiration Date Model / Serial / Lot Mesh Preshaped Large - [id number] Implanted:Qty : 1 on 12/31/2014 by Jj Weston MD at OR [facility] Right: Groin CR BARD : DAVOL 09/19/2018 [id number] / / [id number] Suture [place] Dbl Load 4.75mm - [id number] Implanted:Qty : 1 on 03/15/2020 by Kar Berry DO at OR [facility] Right: Shoulder [employer] 12/18/2021 [id number]- 2 / / [id number] documented as of this encounter Advance Directives Latest Code Status on File Code Status Date Activated Date Inactivated Comments Full Code 11/23/2012 8:27 PM 11/24/2012 8:07 PM This or emilia reflects the patients wishes and were consensually agreed upon. Question Answer Comments Discussion of Advance Directives occurred with: Patient/Family Care Teams Motion Picture Set Worker Relationship Specialty Start Date End Date Sabino Izaguirre MD [address] [place] [address] [place] [address] PCP - General Family Medicine 01/21/21 documented as of this encounter
--- OUTSIDE RECORDS SUMMARY | 2024-02-04 05:01 | External Medical Summary | Summary of Care ---
Author Name Unknown Organization [facility] Address [address] [place] [address] Phone [phone] Care Team Providers Care Procurement Accountant Name Role Phone Sabino Izaguirre MD Primary Care Provide r Reason for Visit * Reason Onset Date Comments Outpatient Testing 09/16/2023 Returning Call 09/16/2023 Encounter Details Date Type Department Care Team (Late st Contact Info) Description 09/16/2023 Telephone Nephrology, [facility] 200 [facility] [place] [address] Kriss Mendoza MD [address] [place] [address] Outpatient Testing; Returning Call Allergies Active Allergy Reactions Criticality Noted Date Comments Enalapril Maleate Cough 11/12/2014 documented as of this encounter (statuses as of 09/28/2023) Medications Medication Sig Dispensed Refills Start Date [...] Sublingual Tablet Sublingual (Nitrostat)Indication s:Coronary atherosclerosis of [place] coronary artery,Stable angina PLACE 1 TABLET UNDER [...] as of this encounter (statuses as of 09/28/2023) Active Problems Problem Noted Date Diagnosed Date [...] Impotence of organic origin 04/18/2008 Atherosclerosis of [place] co ronary artery of [place] heart with stable angina pectoris 01/01/2008 S/P angioplasty with stent 06/30/2006 Esophageal reflux 10/29/2005 ADVANCE DIRECTIVE INFORMATION 08/21/2005 Overview: No, Advance Directive brochure given to patient at prior appointment. documented as of this encounter (statuses as of 09/28/2023) Resolved Problems Problem Noted Date Diagnosed Date Resolved Date Cough due to RANDALL inhibitor 11/12/2014 0 01/30/2019 Hyperkalemia 11/12/2014 11/16/2018 Pre-operative cardiovascular examination 09/11/2014 11/12/2014 [facility] [facility] [employer] Other*[id number] 11/23/2012 10/27/2016 Overview: Study Title: Genomic Markers for Patients with Cardiovascular Disease Project # [id number] Rotary Adjuster: Laine Cadena MD [phone] Abnormal stress echocardiogram 11/17/2012 01/30/2019 Impotence of organic origin 04/18/2008 11/16/2018 Chest pain 08/31/2006 01/30/2019 HIP & THIGH INJURY NOS 12/05/200401/30 Rosacea 02/23/2001 01/30/2019 Dyslipidemia, goal to be determined 08/29/2009 Overview: Per Lipid Taxonomy. HYPERTENSION NOS 08/08/2009 Overview: Modified per HTN protocol #16. documented as of this encounter (statuses as of 09/28/2023) Immunizations Name Administration Dates Next Due COVID-19 mRNA, LNP-s, No Pre serve, 2-Dose Series ([employer]) 01/01/2022,06/19/2021,11/25/2020,10/21 H1N1 2009 Influenza, IM 09/24/2009 Pneumococcal [...] doctor is requesting. They aretraveling home from [place] and at the time of her call they were at the airport waiting to board [facility]. I told her that you [...] 11/15/2023 2:00 PM EST Nurse Only Ancillary [address] [place] [address] [place], Nurse [address] [place] [address] 11/17/2023 11:40 AM EST Office Visit Otolaryngology [facility] [address] [place] [id number] Renata Garcia PA-C [address] [place] [address] 11/25/2023 2:00 PM EST Imaging Cardiac Studies, [facility] [address] [place] [address] 12/15/2023 2:00 PM EDT Hospital Encounter [facility]O [facility], Endoscopy Room [facility] [address] [place] [phone] Marcellus Thompson MD [address] [place] [address] 12/15/2023 2:00 PM EDT - 12/15/2023 2:30 PM EDT Surgery ENDO [facility], Endoscopy Room [facility] [address] [place] [phone] Marcellus Thompson MD [address] [place] [address] COLONOSCOPY FLEXIBLE PROXIMAL DIAGNOSTIC 12/21/2023 11:00 AM EDT Office Visit Cardiology, [facility] [address] [place] [address] Pennie Naranjo CRNP [address] [place] [address] 01/11/2024 11:30 AM EDT Telemedicine Interventional Pain Center, [facility] [address] [place] [address] Lisandra Murguia PA-C [address] [place] [address] 01/13/2024 10:30 AM EDT Office Visit Nephrology, [facility] [address] [place] [address] Lois Mcclendon PA-C [address] [place] [address] Scheduled Procedures Name Priority Associated Diagnoses Date/Ti [...] Additional history exists CKD PHOS USE SMARTSET 05628 06/11/2024 06/11/2023 HbA1c 06/11/2024 06/11/2023, 090 04/2022, 04/02/2021, Additional history exists CKD HGB USE SMARTSET 51725 07/05/202407/05, 06/28/2023, 10/22/2022, Additional history exists DTaP,Tdap,and [...] this encounter Medical Devices Implanted Type Area Cocoa Butter Filter Operator Device Identifier Shelf Expiration Date Model / Serial / Lot Mesh Preshaped Large - [id number] Implanted:Qty : 1 on 12/31/2014 by Jj Weston MD at OR [facility] Right: Groin CR BARD : DAVOL 09/19/2018 [id number] / / [id number] Suture Triangle Dbl Load 4.75mm - [id number] Implanted:Qty : 1 on 03/15/2020 by Kar Berry DO at OR [facility] Right: Shoulder [employer] 12/18/2021 [id number]- [id number] / / [id number] documented as of this encounter Advance Directives Latest Code Status on File Code Status Date Activated Date Inactivated Comments Full Code 11/23/2012 8:27 PM 11/24/2012 8:07 PM This or emilia reflects the patients wishes and were consensually agreed upon. Question Answer Comments Discussion of Advance Directives occurred with: Patient/Family Care Teams Procurement Accountant Relationship Specialty Start Date End Date Sabino Izaguirre MD [address] [place] [address] [place] [phone] PCP - General Family Medicine 01/21/21 documented as of this encounter
--- OUTSIDE RECORDS SUMMARY | 2024-02-04 05:01 | External Medical Summary | Summary of Care ---
Author Name Unknown Organization [facility] Address [address] [facility] [address] Phone [phone] Care Team Providers Care Smeller Name Role Phone Sabino Izaguirre MD Primary Care Provide r Reason for Visit * Reason Onset Date Comments Outpatient Testing 09/16/2023 Encounter Details Date Type Department Care Team (Late st Contact Info) Description 09/16/2023 Telephone Nephrology, [facility] [place] [address] [place] [address] Kriss Mendoza MD [address] [place] [address] Outpatient Testing Allergies Active Allergy Reactions Criticality Noted Date [...] Sublingual (Nitrostat)Indication s:Coronary atherosclerosis of [place] coronary artery,Stable angina PLACE 1 TABLET UNDER [...] organic origin 04/18/2008 Atherosclerosis of [place] co ronary artery of [place] heart with stable angina pectoris 01/01/2008 S/P [...] cardiovascular examination 09/11/2014 11/12/2014 [facility] [facility] Other*[id number] 11/23/2012 10/27/2016 Overview: Study Title: Genomic Markers for Patients with Cardiovascular Disease Project # [id number] Ballet Teacher: Laine Cadena MD [phone] Abnormal stress echocardiogram 11/17/2012 01/30/2019 Impotence of [...] mRNA, LNP-s, No Pre serve, 2-Dose Series ([employer]) 01/01/2022,06/19/2021,11/25/2020,10/21 H1N1 2009 Influenza, IM 09/24/2009 Pneumococcal [...] encounter Miscellaneous Notes * Telephone Encounter - Carolina Yepez RN [...] 11/15/2023 2:00 PM EST Nurse Only Ancillary [address] [place] [address] [place], Nurse [address] [place] [address] 11/17/2023 11:40 AM EST Office Visit Otolaryngology [facility] [address] [place] [address] Renata Garcia PA-C [address] [place] [address] 11/25/2023 2:00 PM EST Imaging Cardiac Studies, [facility] [address] [place] [address] 12/15/2023 2:00 PM EDT Hospital Encounter ENDO [facility], Endoscopy Room [facility] [address] [place] [phone] Marcellus Thompson MD [address] [place] [address] 12/15/2023 2:00 PM EDT - 12/15/2023 2:30 PM EDT Surgery [facility], Endoscopy Room [facility] [address] [place] [address] Marcellus Thompson MD [address] [place] [address] COLONOSCOPY FLEXIBLE PROXIMAL DIAGNOSTIC 12/21/2023 11:00 AM EDT Office Visit Cardiology, [facility] [address] [place] [address] Pennie Naranjo CRNP [address] [place] [address] 01/11/2024 11:30 AM EDT Telemedicine Interventional Pain Center, [facility] [address] [place] [address] Lisandra Murguia PA-C [address] [place] [address] 01/13/2024 10:30 AM EDT [facility] [place] [facility] [place] [address] ZemaitisLois PA-C [address] [place] [address] Scheduled Procedures Name Priority Associated Diagnoses Date/Ti me COLONOSCOPY FLEXIBLE PROXIMAL DIAGNOSTIC Recall History of colon polyps 12/15/2023 2:00 PM EDT Health Maintenance Due Date Last Done Comments COVID-19 Vaccine ( season) 2023 08/05/2022, 01/01/2022, 06/19/2021, Additional history exists COLONOSCOPY-EVERY 3 YRS AGES 18-100 06/05/2023 06/05/2020, 06/05/2020, 02/08/2017, Additional history exists Albumin/Creatinine Ratio 10/22/2023 10/22/2022, 04/2022 Depression Screening 11/11/2023 11/11/2022 GFR 01/04/2024 07/05/2023, 06/20, 06/28/2023, Additional history exists CKD PHOS USE SMARTSET 36470 06/11/2024 06/11/2023 HbA1c 06/11/2024 06/11/2023, 09/0 04/2022, 04/02/2021, Additional history exists CKD HGB USE SMARTSET 08871 07/05/202407/05, 06/28/2023, 10/22/2022, Additional history exists DTaP,Tdap,and [...] this encounter Medical Devices Implanted Type Area Graphic Design Professor Device Identifier Shelf Expiration Date Model / Serial / Lot Mesh Preshaped Large - [id number] Implanted:Qty : 1 on 12/31/2014 by Jj Weston MD at OR [facility] Right: Groin CR BARD : DAVOL 09/19/2018 [id number] / / [id number] Suture [place] Dbl Load 4.75mm - [id number] Implanted:Qty : 1 on 03/15/2020 by Kar Berry DO at OR [facility] Right: Shoulder [employer] 12/18/2021 [id number]- 2 / / [id number] documented as of this encounter Advance Directives Latest Code Status on File Code Status Date Activated Date Inactivated Comments Full Code 11/23/2012 8:27 PM 11/24/2012 8:07 PM This or emilia reflects the patients wishes and were consensually agreed upon. Question Answer Comments Discussion of Advance Directives occurred with: Patient/Family Care Teams Smeller Relationship Specialty Start Date End Date Sabino Izaguirre MD [address] [place] [address] [place] [address] PCP - General Family Medicine 01/21/21 documented as of this encounter
--- OUTSIDE RECORDS SUMMARY | 2024-02-04 05:01 | External Medical Summary | Summary of Care ---
Author Name Unknown Organization [facility] Address [address] [place] [address] Phone [phone] Care Team Providers Care Family And Consumer Science Professor Name Role Phone Sabino Izaguirre MD Primary Care Provide r Reason for Visit * Reason Onset Date Comments Outpatient Testing 09/16/2023 Encounter Details Date Type Department Care Team (Late st Contact Info) Description 09/16/2023 Telephone Nephrology, Abilio Lodi [address] [place] [address] Kriss Mendoza MD [address] [place] [address] Outpatient Testing Allergies Active Allergy Reactions Criticality Noted Date Comments Enalapril Maleate Cough 11/12/2014 documented as of this encounter (statuses as of 09/17/2023) Medications Medication Sig Dispensed Refills Start Date [...] Sublingual Tablet Sublingual (Nitrostat)Indication s:Coronary atherosclerosis of [place] coronary artery,Stable angina PLACE 1 TABLET UNDER [...] as of this encounter (statuses as of 09/17/2023) Active Problems Problem Noted Date Diagnosed Date [...] Impotence of organic origin 04/18/2008 Atherosclerosis of [place] co ronary artery of [place] heart with stable angina pectoris 01/01/2008 S/P angioplasty with stent 06/30/2006 Esophageal reflux 10/29/2005 ADVANCE DIRECTIVE INFORMATION 08/21/2005 Overview: No, Advance Directive brochure given to patient at prior appointment. documented as of this encounter (statuses as of 09/17/2023) Resolved Problems Problem Noted Date Diagnosed Date Resolved Date Cough due to RANDALL inhibitor 11/12/2014 0 01/30/2019 Hyperkalemia 11/12/2014 11/16/2018 Pre-operative cardiovascular examination 09/11/2014 11/12/2014 [employer] Other*[id number] 11/23/2012 10/27/2016 Overview: Study Title: Genomic Markers for Patients with Cardiovascular Disease Project # [id number] Web Site Developer: Laine Cadena MD [phone] Abnormal stress echocardiogram 11/17/2012 01/30/2019 Impotence of organic origin 04/18/2008 11/16/2018 Chest pain 08/31/2006 01/30/2019 HIP & THIGH INJURY NOS 12/05/200401/30 Rosacea 02/23/2001 01/30/2019 Dyslipidemia, goal to be determined 08/29/2009 Overview: Per Lipid Taxonomy. HYPERTENSION NOS 08/08/2009 Overview: Modified per HTN protocol #16. documented as of this encounter (statuses as of 09/17/2023) Immunizations Name Administration Dates Next Due COVID-19 mRNA, LNP-s, No Pre serve, 2-Dose Series ([email or web address]) 01/01/2022,06/19/2021,11/25/2020,10/21 H1N1 2009 Influenza, IM 09/24/2009 Pneumococcal [...] 2:00 PM EST Nurse Only Ancillary [address] [place] [address] [place], Nurse [address] [place] [address] 11/17/2023 11:40 AM EST Office Visit Otolaryngology [facility] [address] [place] [address] Renata Garcia PA-C [address] [place] [address] 11/25/2023 2:00 PM EST Imaging Cardiac Studies, [facility] [address] [place] [address] 12/15/2023 2:00 PM EDT Hospital Encounter ENDO [facility], Endoscopy Room [facility] [address] [place] [phone] Marcellus Thompson MD [address] [place] [address] 12/15/2023 2:00 PM EDT - 12/15/2023 2:30 PM EDT Surgery ENDO [facility], Endoscopy Room [facility] [address] [place] [phone] Marcellus Thompson MD [address] [place] [address] COLONOSCOPY FLEXIBLE PROXIMAL DIAGNOSTIC 12/21/2023 11:00 AM EDT Office Visit Cardiology, [facility] [address] [place] [address] Pennie Naranjo CRNP [address] [place] [address] 01/11/2024 11:30 AM EDT Telemedicine Interventional Pain Center, [facility] [address] [place] [address] Lisandra Murguia PA-C [address] [place] [address] 01/13/2024 10:30 AM EDT Office Visit Nephrology, Abilio Barber [address] [place] [address] ZeLois hager PA-C [address] [place] [address] Scheduled Procedures Name Priority Associated Diagnoses Date/Ti [...] Additional history exists CKD PHOS USE SMARTSET 61754 06/11/2024 06/11/2023 HbA1c 06/11/2024 06/11/2023, 09/0 04/2022, 04/02/2021, Additional history exists CKD HGB USE SMARTSET 63576 07/05/202407/05, 06/28/2023, 10/22/2022, Additional history exists DTaP,Tdap,and [...] this encounter Medical Devices Implanted Type Area Cloth Washer Operator Device Identifier Shelf Expiration Date Model / Serial / Lot Mesh Preshaped Large - [id number] Implanted:Qty : 1 on 12/31/2014 by Jj Weston MD at OR [facility] Right: Groin CR BARD : DAVOL 09/19/2018 [id number] / / [id number] Suture Woodruff Dbl Load 4.75mm - [id number] Implanted:Qty : 1 on 03/15/2020 by Kar Berry DO at OR [facility] Right: Shoulder [employer] 12/18/2021 [id number] / / [id number] documented as of this encounter Advance Directives Latest Code Status on File Code Status Date Activated Date Inactivated Comments Full Code 11/23/2012 8:27 PM 11/24/2012 8:07 PM This or emilia reflects the patients wishes and were consensually agreed upon. Question Answer Comments Discussion of Advance Directives occurred with: Patient/Family Care Teams Family And Consumer Science Professor Relationship Specialty Start Date End Date Sabino Izaguirre MD [address] [place] [address] [place] [address] PCP - General Family Medicine 01/21/21 documented as of this encounter
--- OUTSIDE RECORDS SUMMARY | 2024-02-04 05:01 | External Medical Summary | Summary of Care ---
Author Name Unknown Organization [facility] Address [address] [address] Phone [phone] Care Team Providers Care [employer]ator [employer] Name Role Phone Milo Whittington MD Primary Care Provide r Reason for Visit * Reason Comments Chronic Kidney Disease (CKD) Encounter Details Date Type Department Care Team (Late st Contact Info) Description 09/09/2023 1:20 PM EST Office Visit [facility] [address] [facility] [place] [address] Kriss Mendoza MD [address] [facility] [place] [address] Uncontrolled hypertension, stage 1*; Resistant hypertension; Hypertension goal BP (blood pressure) < 130/80; Chronic kidney disease, stage 3a (HCC); Nephrolithiasis; Palpitations; Stable angina Allergies Active Allergy Reactions Criticality Noted Date Comments Enalapril Maleate Cough 11/12/2014 documented as of this encounter (statuses as of 09/16/2023) Medications Medication Sig Dispensed Refills Start Date End Date Status FISH OIL 1000 MG PO CAPSIndications:Dys lipidemia, goal LDL below 160 one tablet twice daily 60 5 05/08/20 08 Active ASPIRIN 81 MG PO TABSIndications:S/P angioplasty with stent 1 tablets daily 30 Tab 11 11/25/19 13 Active Additional Information Patient taking differently: (No route reported), Reported on 09/25/2022 fluticasone (FLONASE) 50 MCG/ACT nasal spray Administer 2 Sprays into each nostril daily as needed for Allergies. 1 Inhaler 5 11/02/19 17 Active Multiple Vitamins TABS Take by mouth daily. 0 Active Docusate Sodium 100 MG Oral Capsule (Colace)Indications :Constipation, unspecified constipation type TAKE 1 CAPSULE BY MOUTH EVERY MORNING 90 Capsule 1 05/27/20 22 Active ProAir HFA 108 (90 Base) MCG/ACT Inhalation Aerosol SolutionIndications :Bronchitis, complicated Inhale 2 Puffs by mouth every 4 hours as needed for Wheezing. 18 g 2 10/06/19 23 Active amLODIPine Besylate 5 MG Oral Tablet (Norvasc)Indication s:HTN, goal below 140/90 Take 1 Tablet by mouth 2 times a day. 180 Tablet 3 03/22/20 23 Active Spironolactone 25 MG Oral Tablet (Aldactone) TAKE 1 TABLET BY MOUTH IN THE MORNING 90 Tablet 3 03/02/20 23 024 Active Nitroglycerin 0.4 MG Sublingual Tablet Sublingual (Nitrostat)Indicati ons:Coronary atherosclerosis of [place] coronary artery,Stable angina PLACE 1 TABLET UNDER THE TONGUE EVERY 5 MINUTES NEEDED FOR PAIN, CHEST 25 Tablet 5 03/01/20 23 024 Active Losartan Potassium 100 MG Oral Tablet (Cozaar) TAKE ONE TABLET BY MOUTH EVERY DAY IN THE MORNING 90 Tablet 3 02/12/20 23 024 Active Torsemide 5 MG Oral Tablet (Demadex)Indication s:Chronic kidney disease, stage 3a (HCC) TAKE ONE TABLET BY MOUTH IN THE MORNING 90 Tablet 3 01/29/20 23 024 Active Pantoprazole Sodium 40 MG Oral Tablet Delayed Release (Protonix) TAKE ONE TABLET BY MOUTH EVERY DAY 100 Tablet 3 09/17/20 22 024 Active Rosuvastatin Calcium 40 MG Oral Tablet (Crestor)Indication s:Dyslipidemia, goal LDL below 70 TAKE ONE TABLET BY MOUTH IN THE MORNING 90 Tablet 3 08/27/20 22 024 Active Famotidine 20 MG Oral Tablet (Pepcid)Indications :Gastroesophageal reflux disease without esophagitis TAKE ONE TABLET BY MOUTH TWICE A DAY 180 Tablet 3 08/05/20 22 024 Active Gabapentin 100 MG Oral Capsule (Neurontin)Indicati ons:Cervical radicular pain Take 1 Capsule by mouth in the morning and 1 Capsule at noon and 1 Capsule before bedtime. 270 Capsule 1 07/12/20 Active hydroCHLOROthiazide 25 MG Oral Tablet (Hydrodiuril)Indica tions:HTN, goal below 140/90 Take 1 Tablet by mouth in the morning. 90 Tablet 3 07/12/20 Active Sildenafil Citrate 50 MG Oral Tablet TAKE ONE TABLET BY MOUTH 1 TO 4 HOURS BEFORE INTERCOURSE 4 Tablet 2 09/08/20 Active Metoprolol Succinate ER 25 MG Oral Tablet Extended Release 24 Hour (toPROL XL)Indications:Palp itations,Stable angina Take 1 Tablet by mouth at bedtime. 90 Tablet 3 09/09/20 23 Active Metoprolol Succinate ER 25 MG Oral Tablet Extended Release 24 Hour (toPROL XL)Indications:Palp itations,Stable angina TAKE 1 TABLET BY MOUTH EVERY DAY AND ONE-HALF TABLET EVERY EVENING 135 Tablet 3 09/17/20 22 023 Discontinued(Re fill) Clopidogrel Bisulfate 75 MG Oral Tablet (pLAVix)Indications :S/P angioplasty with stent TAKE ONE TABLET BY MOUTH IN THE MORNING 100 Tablet 3 08/27/20 22 023 Discontinued(Re fill) Amoxicillin-Pot Clavulanate 875-125 MG Oral Tablet (Augmentin)Indicati ons:Thumb pain, left Take 1 Tablet by mouth in the morning and 1 Tablet before bedtime. Do all this for 10 days. 20 Tablet 0 06/15/20 23 023 Discontinued ampicillin-sulbacta m IJ SOLN Q6H 0 06/24/20 23 023 Discontinued Doxycycline Hyclate 100 MG Oral Tablet Take 1 Tablet by mouth in the morning and 1 Tablet before bedtime. 0 023 Discontinued Doxycycline Monohydrate 100 MG Oral Tablet 0 07/09/20 23 023 Discontinued Cephalexin 500 MG Oral Capsule (Keflex) 0 07/09/20 23 023 Discontinued documented as of this encounter (statuses as of 09/16/2023) Active Problems Problem Noted Date Diagnosed Date [...] Impotence of organic origin 04/18/2008 Atherosclerosis of [place] co ronary artery of [place] heart with stable angina pectoris 01/01/2008 S/P angioplasty with stent 06/30/2006 Esophageal reflux 10/29/2005 ADVANCE DIRECTIVE INFORMATION 08/21/2005 Overview: No, Advance Directive brochure given to patient at prior appointment. documented as of this encounter (statuses as of 09/16/2023) Resolved Problems Problem Noted Date Diagnosed Date Resolved Date Cough due to RANDALL inhibitor 11/12/2014 0 01/30/2019 Hyperkalemia 11/12/2014 11/16/2018 Pre-operative cardiovascular examination 09/11/2014 11/12/2014 [employer] Other*[id number] 11/23/2012 10/27/2016 Overview: Study Title: Genomic Markers for Patients with Cardiovascular Disease Project # [id number] Electronic Organ Mechanic: Laine Cadena MD [phone] Abnormal stress echocardiogram 11/17/2012 01/30/2019 Impotence of organic origin 04/18/2008 11/16/2018 Chest pain 08/31/2006 01/30/2019 HIP & THIGH INJURY NOS 12/05/200401/30 Rosacea 02/23/2001 01/30/2019 Dyslipidemia, goal to be determined 08/29/2009 Overview: Per Lipid Taxonomy. HYPERTENSION NOS 08/08/2009 Overview: Modified per HTN protocol #16. documented as of this encounter (statuses as of 09/16/2023) Immunizations Name Administration Dates Next Due COVID-19 mRNA, LNP-s, No Pre serve, 2-Dose Series (CrossLoop) 01/01/2022,06/19/2021,11/25/2020,10/21 H1N1 2009 Influenza, IM 09/24/2009 Pneumococcal [...] Sign Reading Time Taken Comments Blood Pressure 114/69 09/09/2023 1:34 PM EST Pulse 58 09/09/2023 1:34 PM EST Temperature 35.6 C (96.1 F) 09/09/2023 1:30 PM ES T Respiratory Rate 18 09/09/2023 1:30 PM EST Oxygen Saturation 95% 09/09/2023 1:30 PM EST Inhaled Oxygen Concentration - - Weight 98.4 kg (217 lb) 09/09/2023 1:30 PM EST Height - - Body Mass Index 32.03 07/13/2023 11:46 AM EDT documented in this encounter Patient Instructions * Patient Instructions* Kriss Mendoza MD - 09/09/2023 2:07 PM EST -take toprol XL 25 mg in evening only -continue remote BP monitoring > will follow up with you on BP next month mid month -no change to other meds -avoid medicines like aleve, advil, ibuprofen, aspirin more than 81 mg daily and other NSAIDS whichare not good for kidney patients. Take only tylenol (acetaminophen) up to 2000 mg daily as needed for pain or as directed by your primary care provider. documented in this encounter Progress Notes * Kriss Mendoza MD - 09/09/2023 1:51 PM EST NEPHROLOGY CLINIC NOTE [facility] [address] 09/09/2023, 1:52 PM Patient Name: Enzo Shaw BACKGROUND: 67 year old male presents for f/u of CKD3A. PMH includes HTN since at least [...] hospital stay: E coli bowel issue admission [facility] 04/2022 >> no record of this found on review of [facility] charts Laceration to his L index finger yesterday and went to [facility] ER >> got stitches and keflex. EtOH at holidays only. Never user of tobacco. 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 TODAY 09/09/2023: had finger surgery and c/b infection. Had 14 days IV abtx. Follows w/ Dr Hanley Some dizziness w/ bending over and going back up most every time; resolves after a few seconds Still cuts wood; caring for chickens; active most every day. Drinks 2-3 skim milk/day; water 3 x 12 oz bottles; coffee 1 cup now 10 oz << total daily fluid intake. Started drinking low Na V8 2 wks ago and enjoys it. Acc by today. Nely gonzalez for [place] trip , back 09/24 REVIEW OF SYSTEMS: No F/C, unintended wt loss or gain, energy level and appetite acceptable No acute visual changes or RAMIREZ No sinus, dental, throat pain No neck lumps/bumps or stiffness No palpitations, angina, orthopnea, LE edema No cough, wheeze, or dyspnea; occasoinally hs needs albuterol No N/V/D/C/abd pain No dysuria, hematuria, nocturia >2X; no new or worrisome voiding symptoms No rash; does c/o generalized itch on his back hs No focal joint/muscle aches No inappropriate bleeding or bruising No tremor, seizures, focal or global weakness or paresthesias No presyncopal or orthostatic symptoms; no falls Current Outpatient Medications Medication Sig Dispense Refill [...] (Protonix) TAKE ONE TABLET BY MOUTH EVERY [id number] Tablet 3 Clopidogrel Bisulfate 75 MG Oral Tablet (pLAVix) TAKE ONE TABLET BY MOUTH IN THE MORNING 100 Tablet3 Rosuvastatin Calcium 40 MG Oral Tablet (Crestor) [...] by mouth at bedtime. 90 Tablet 3 Nitroglycerin 0.4 MG Sublingual Tablet Sublingual (Nitrostat) PLACE 1 TABLET UNDER THE TONGUE EVERY5 MINUTES NEEDED FOR PAIN, CHEST 25 Tablet 5 No current facility-administered medications for this visit. Review of patient's allergies indicates: Allergen Reactions Enalapril Maleate Cough PHYSICAL EXAMINATION: BP Readings from Last 6 Encounters: 09/09/23 114/69 07/01/23 130/70 06/15/23 120/72 06/15/23 132/72 04/08/23 152/90 02/04/23 135/69 Wt Readings from Last 6 Encounters: 09/09/23 98.4 kg (217 lb) 07/13/23 96.1 kg (211 lb 14.4 oz) 07/01/23 95.9 kg (211 lb 8 oz) 06/15/23 97.1 kg (214 lb) 06/15/23 97.1 kg (214 lb) 04/08/23 96.1 kg (211 lb 12.8 oz) Pulse Readings from Last 6 Encounters: 09/09/23 58 07/01/23 62 06/15/23 68 06/15/23 68 04/08/23 89 02/04/23 54 08/20/23 15:28 08/21/23 20:34 08/23/23 22:10 08/30/23 09:44 09/01/23 08:49 09/02/23 09:06 09/04/23 09:56 09/06/23 07:35 09/08/23 18:02 Systolic BP 129 mm/Hg [1] 128 mm/Hg [1] 124 mm/Hg [1] 146 mm/Hg (H) [1] 140 mm/Hg [1] 148 mm/Hg (H)[1] 142 mm/Hg (H) [1] 128 mm/Hg [1] 141 mm/Hg (H) [1] Diastolic BP 74 mm/Hg [1] 70 mm/Hg [1] 70 mm/Hg [1] 75 mm/Hg [1] 71 mm/Hg [1] 76 mm/Hg [1] 76 mm/Hg[1] 67 mm/Hg [1] 74 mm/Hg [1] Pulse 57 bpm [1] 53 bpm [1] 56 bpm [1] 56 bpm [1] 49 bpm (L) [1] 50 bpm [1] 53 bpm [1] 49 bpm (L) [1] 56 bpm [1] NAD, oriented x 3, ambulatory and on table w/o asst Normocephalic, atraumatic, eomi nonicteric sclerae MMM Supple neck RRR w/o m/g/r; no edema CTAB w/ reasonable air mvt NT abd, +BS, soft No cyanosis or clubbing No rash No tremor, focal or global weakness; fluent speech, excellent historian LABS: Recent Labs Units 07/05/23 0000 07/01/23 1437 06/28/23 0000 06/11/23 1106 03/25/23 1217 02/26/23 0944 SODIUM - [facility] mmol/L -- 140 -- 137 140 140 POTASSIUM - [facility] mmol/L -- 4.3 -- 4.7 4.7 4.2 POTASSIUM-OUTSIDE LAB MMOL/L 4.0 -- 4.2 -- -- -- CHLORIDE - [facility] mmol/L -- 106 -- 103 104 103 CO2 - [facility] mmol/L -- 21* -- 22 22 24 EGFR-OUTSIDE LAB ML/MIN 57* -- 49* -- -- -- BUN - [facility] mg/dL -- 29* -- 36* 36* 25* CREATININE - [facility] mg/dL -- 1.3* -- 1.6* 1.5* 1.3* CREATININE-OUTSIDE LAB MG/DL 1.34* -- 1.54* -- -- -- ESTIMATED GLOMERULAR FILTRATION RATE - [facility] mL/min -- 62 -- 46* 49* 62 Recent Labs Units 07/05/23 0000 06/28/23 0000 10/22/22 1434 06/12/22 0934 HGB - [facility] g/dL -- -- 15.8 14.2 HEMOGLOBIN-OUTSIDE LAB GM/DL 12.4* 11.8* -- -- Recent Labs Units 07/01/23 1437 06/11/23 1106 03/25/23 1217 02/26/23 0944 CALCIUM - [facility] mg/dL 9.5 9.7 9.8 9.2 PHOSPHORUS - [facility] mg/dL -- 3.7 -- -- Recent Labs Units 06/11/23 1106 05/28/22 1403 HEMOGLOBIN A1C - [facility] % 5.4 5.7* Recent Labs Units 10/22/22 1434 05/28/22 1403 ALBUMIN / CREATININE RATIO, URINE - [facility] mg/g Creat <12 21 Recent Labs Units 10/22/22 1434 CLARITY, URINE - [facility] Clear GLUCOSE, URINE - [facility] mg/dL Negative BILIRUBIN, URINE - [facility] Negative KETONE, URINE - [facility] mg/dL Negative SPECIFIC GRAVITY, URINE - [facility] 1.020 BLOOD, URINE - [facility] Negative PH, URINE - [facility] Units 6.0 PROTEIN, URINE - [facility] mg/dL Negative UROBILINOGEN, URINE - [facility] mg/dL 1.0 NITRITE, URINE - [facility] Negative ESTERASE, URINE - [facility] Negative BACTERIA, URINE - [facility] /HPF 0-25 WBC, URINE - [facility] /HPF 0-2 RBC, URINE - [facility] /HPF 0-2 CT a/p non con 2016 (highlights) ADRENALS: Unremarkable KIDNEYS/URETERS: Bilateral renal cortical cysts. Peripelvic hypodensity in the left kidney are likely peripelvic cysts. Few calcific densities in the kidneys suggesting stones. No hydronephrosis. No ureteral stones. BLADDER: Unremarkable BOWEL: A sigmoid diverticulum. The appendix is dilated measuring up to 9 mm. The caliber of the appendix is stable when compared to previous CT. Questionable subtle focal stranding adjacent to the appendix seen on image 129 of series 4. LYMPH NODES: Unremarkable VESSELS: Atherosclerotic vascular calcification. REPRODUCTIVE ORGANS: Prostatomegaly. PERITONEUM/RETROPERITONEUM: Unremarkable ABDOMINAL WALL/SOFT TISSUES: Unremarkable BONES: There is a sclerotic focus in the left acetabulum on image 179 of series 4. This is new whencompared to 2008 CT. Another subtle sclerotic focus in the left posterior ilium on image 146 of series 4 is also new from previous CT. Degenerative osseous changes. Old left rib fractures. IMPRESSION 1. Stable mild dilation of the appendix. Questionable focal stranding adjacent to appendix. Early appendicitis is a consideration. 2. Bilateral nonobstructive nephrolithiasis. Bilateral renal cysts. 3. Couple of sclerotic osseous foci in the pelvic bones are new when compared to previous CT. Theseare indeterminate. Bone scan recommended for further assessment. The information above was relayed directly by me by telephone to MARIO LONGORIA on 12/08/2018 at 4:51pm who expressed understanding. ASSESSMENT AND PLAN: Uncontrolled hypertension, stage 1 (Primary) Hypertension goal BP (blood pressure) < 130/80 Chronic kidney disease, stage 3a (HCC) Nephrolithiasis Palpitations - Metoprolol Succinate ER 25 MG Oral Tablet Extended Release 24 Hour (toPROL XL); Take 1 Tablet by mouth at bedtime. Stable angina - Metoprolol Succinate ER 25 MG Oral Tablet Extended Release 24 Hour (toPROL XL); Take 1 Tablet by mouth at bedtime. Follow Up: Return in about 4 months (around 01/09/2024) for clinic visit w/ , clinic visit w/ PA. | For: clinic visit w/ , clinic visit w/ PA | Check-out note: Waitlist BP at home are uncontrolled >> concern for masked HTN; meets criteria for resistant HTN -messaged MTM to check back w/ him in mid September re home BP and sx -continue remote bp monitoring as above -low threshold for ambulatory BP study -cont toprol, spironolactone, amlodipine, torsemide, losartan, hctz current doses >unable to do aldosteronism w/u on julio receptor niraj; would however reimage kidneys with renovascular duplex as well as u/s for stone disease below (to reassess stone burden) as well as ensurehe has sleep apnea eval and 24 hr urine to eval for dietary sodium>> see separate TE HR on lower side and some orthostatic sx w/o palpitations or angina > do note however he's not orthostatic -cut PM 12.5 mg toprol dose and move AM 25 mg dose to evening Last stone activity 2016; last imaging 2016 discovered; drinking about 70 oz daily >> uroriskto eval targets for stone disease as well as dietary sodium; recommend also renal u/s I spent a total of 40-54 minutes (exact time 40 mins) on the date of service in preparation, delivery, and documentation of the care provided to Enzo Shaw excluding any time spent in the performance of separately billed services. Patient Instructions -take toprol XL 25 mg in evening only -continue remote BP monitoring > will follow up with you on BP next month mid month -no change to other meds -avoid medicines like aleve, advil, ibuprofen, aspirin more than 81 mg daily and other NSAIDS whichare not good for kidney patients. Take only tylenol (acetaminophen) up to 2000 mg daily as needed for pain or as directed by your primary care provider. Kriss Mendoza MD Nephrology, [address] [place] [address] CC: Ref: MILO WHITTINGTON[[id number]] [address] [place] [address] [place] [address] (office) [phone] (fax) PCP: MILO WHITTINGTON [address] [place] [address] [place] [address] [phone] This chart was completed in part utilizing [employer] Speech Voice Recognition Software. Randomword insertions, pronoun errors, and incomplete sentences are an occasional consequence of this system due to software limitations, and ambient noise. Any questions or concerns about the content, text, or information contained within the body of this dictation should be directly addressed to the provider for clarification. documented in this encounter Nursing Notes * Carolina Yepez RN - 09/09/2023 1:32 PM EST Follow up visit today . States he feels dizzy when he changes position quickly. documented in this encounter Plan of Treatment Upcoming Encounters Date Type Department Care Team (Latest Contact Info) Description 11/15/2023 2:00 PM EST Nurse Only Ancillary [address] [place] [address] Veronica, Nurse [address] [place] [address] 11/17/2023 11:40 AM EST Office Visit Otolaryngology [facility] [address] [place] [address] Renata Garcia PA-C [address] [place] [address] 11/25/2023 2:00 PM EST Imaging Cardiac Studies, [facility] [address] [place] [address] 12/15/2023 2:00 PM EDT Hospital Encounter ENDO [facility], Endoscopy Room [facility] [address] [place] [id number] Marcellus Thompson MD [address] [place] [address] 12/15/2023 2:00 PM EDT - 12/15/2023 2:30 PM EDT Surgery ENDO [facility], Endoscopy Room [facility] [address] [place] [phone] Marcellus Thompson MD [address] [place] [address] COLONOSCOPY FLEXIBLE PROXIMAL DIAGNOSTIC 12/21/2023 11:00 AM EDT Office Visit Cardiology, [facility] [address] [place] [address] Pennie Naranjo CRNP [address] [place] [address] 01/11/2024 11:30 AM EDT Telemedicine Interventional Pain Center, [facility] [address] [place] [address] Lisandra Murguia PA-C [address] [place] [address] 01/13/2024 10:30 AM EDT [address] [address] ZeLois hager PA-C [address] [facility] [place] [address] Scheduled Procedures Name Priority Associated Diagnoses Date/Ti [...] Additional history exists CKD PHOS USE SMARTSET 51859 06/11/2024 06/11/2023 HbA1c 06/11/2024 06/11/2023, 0 04/2022, 04/02/2021, Additional history exists CKD HGB USE SMARTSET 81070 07/05/202407/05, 06/28/2023, 10/22/2022, Additional history exists DTaP,Tdap,and [...] this encounter Medical Devices Implanted Type Area Manager Of Merchandising Device Identifier Shelf Expiration Date Model / Serial / Lot Mesh Preshaped Large - [id number] Implanted:Qty : 1 on 12/31/2014 by Jj Weston MD at OR [facility] Right: Groin CR BARD : DAVOL 09/19/2018 [id number] / / [id number] Suture May Dbl Load 4.75mm - [id number] Implanted:Qty : 1 on 03/15/2020 by Kar Berry DO at OR [facility] Right: Shoulder [employer] 12/18/2021 [id number] / / [id number] documented as of this encounter Visit Diagnoses Diagnosis Uncontrolled hypertension, stage 1- Primary Unspecified essential hypertension Resistant hypertension Hypertension goal BP (blood pressure) < 130/80 Unspecified essential hypertension Chronic kidney disease, stage 3a (HCC) Nephrolithiasis Calculus of kidney Palpitations Stable angina Other and unspecified angina [...] Advance Directives occurred with: Patient/Family Care Teams Curator [employer] Museum Relationship Specialty Start Date End Date Milo Whittington MD [address] [place] [address] [place] [phone] PCP - General Family Medicine 01/21/21 documented as of this encounter"
--- OUTSIDE RECORDS SUMMARY | 2024-02-04 05:01 | External Medical Summary | Summary of Care ---
Author Name Unknown Organization [facility] Address [address] [facility] [address] Phone [phone] Care Team Providers Care Airfield Manager Name Role Phone Sabino Izaguirre MD Primary Care Provide r Reason for Visit * Reason Comments Outpatient Testing Encounter Details Date Type Department Care Team (Late st Contact Info) Description 10/04/2023 11:10 AM EST Laboratory Laboratory [address] [place] [address] , Specimen Drop Off [address] [place] [address] HTN, GOAL BELOW 140/90; Chronic kidney disease, stage 3a (HCC); Nephrolithiasis Allergies Active Allergy Reactions Criticality Noted Date Comments Enalapril Maleate Cough 11/12/2014 documented as of this encounter (statuses as of 10/04/2023) Medications Medication Sig Dispensed Refills Start Date [...] Sublingual Tablet Sublingual (Nitrostat)Indication s:Coronary atherosclerosis of [place] coronary artery,Stable angina PLACE 1 TABLET UNDER [...] as of this encounter (statuses as of 10/04/2023) Active Problems Problem Noted Date Diagnosed Date [...] Impotence of organic origin 04/18/2008 Atherosclerosis of [place] co ronary artery of [place] heart with stable angina pectoris 01/01/2008 S/P angioplasty with stent 06/30/2006 Esophageal reflux 10/29/2005 ADVANCE DIRECTIVE INFORMATION 08/21/2005 Overview: No, Advance Directive brochure given to patient at prior appointment. documented as of this encounter (statuses as of 10/04/2023) Resolved Problems Problem Noted Date Diagnosed Date Resolved Date Cough due to RANDALL inhibitor 11/12/2014 0 01/30/2019 Hyperkalemia 11/12/2014 11/16/2018 Pre-operative cardiovascular examination 09/11/2014 11/12/2014 [employer] Other*[id number] 11/23/2012 10/27/2016 Overview: Study Title: Genomic Markers for Patients with Cardiovascular Disease Project # [id number] Welder Tech: Laine Cadena MD [phone] Abnormal stress echocardiogram 11/17/2012 01/30/2019 Impotence of organic origin 04/18/2008 11/16/2018 Chest pain 08/31/2006 01/30/2019 HIP & THIGH INJURY NOS 12/05/200401/30 Rosacea 02/23/2001 01/30/2019 Dyslipidemia, goal to be determined 08/29/2009 Overview: Per Lipid Taxonomy. HYPERTENSION NOS 08/08/2009 Overview: Modified per HTN protocol #16. documented as of this encounter (statuses as of 10/04/2023) Immunizations Name Administration Dates Next Due COVID-19 mRNA, LNP-s, No Pre serve, 2-Dose Series ([employer]) 01/01/2022,06/19/2021,11/25/2020,10/21 H1N1 2009 Influenza, IM 09/24/2009 Pneumococcal [...] Department Care Team (Latest Contact Info) Description 10/07/2023 7:30 AM EST Imaging Vascular Lab, [facility] 2nd Floor, [place] [address] [facility] [place] [address] 10/07/2023 10:00 AM EST Imaging Radiology [address] [place] [address] 11/15/2023 2:00 PM EST Nurse Only Ancillary [place] [place] [address] [place], Nurse [address] [place] [address] 11/17/2023 11:40 AM EST Office Visit Otolaryngology [facility] [address] [place] [address] Renata Garcia PA-C [address] [place] [address] 11/25/2023 2:00 PM EST Imaging Cardiac Studies, [facility] [address] [place] [address] 12/15/2023 2:00 PM EDT Hospital Encounter ENDO [facility], Endoscopy Room [facility] [address] [place] [phone] Marcellus Thompson MD [address] [place] [address] 12/15/2023 2:00 PM EDT - 12/15/2023 2:30 PM EDT Surgery ENDO [facility], Endoscopy Room [facility] [address] [place] [phone] Marcellus Thompson MD [address] [place] [address] COLONOSCOPY FLEXIBLE PROXIMAL DIAGNOSTIC 12/21/2023 11:00 AM EDT Office Visit Cardiology, [facility] [address] [place] [address] Pennie Naranjo CRNP [address] [place] [address] 01/11/2024 11:30 AM EDT Telemedicine Interventional Pain Center, [facility] [address] [place] [address] Lisandra Murguia PA-C [address] [place] [address] 01/13/2024 10:30 AM EDT Office Visit Nephrology, Abilio Barber [address] [place] [address] ZeLois hager PA-C [facility] [place] [facility] [place] [address] Pending Results Name Type Priority Associated Diagnoses Date /Time URORISK(R) DIAGNOSTIC PROFILE Lab Routine HTN, GOAL BELOW 140/90 Chronic kidney disease, stage 3a (HCC) Nephrolithiasis 10/04/2023 11:15 AM EST Scheduled Procedures Name Priority Associated Diagnoses [...] Additional history exists CKD PHOS USE SMARTSET 24034 06/11/2024 06/11/2023 HbA1c 06/11/2024 06/11/2023, 090 04/2022, 04/02/2021, Additional history exists CKD HGB USE SMARTSET 24661 07/05/202407/05, 06/28/2023, 10/22/2022, Additional history exists DTaP,Tdap,and [...] this encounter Medical Devices Implanted Type Area Supervisor Metal Hanging Device Identifier Shelf Expiration Date Model / Serial / Lot Mesh Preshaped Large - [id number] Implanted:Qty : 1 on 12/31/2014 by Jj Weston MD at OR [facility] Right: Groin CR BARD : DAVOL 09/19/2018 [id number] / / [id number] Suture [place] Dbl Load 4.75mm - [id number] Implanted:Qty : 1 on 03/15/2020 by Kar Berry DO at OR [facility] Right: Shoulder [employer] 12/18/2021 [id number]- [id number] / / [id number] documented as of this encounter Visit Diagnoses Diagnosis HTN, GOAL BELOW 140/90 Unspecified essential hypertension Chronic kidney disease, stage [...] Advance Directives occurred with: Patient/Family Care Teams Airfield Manager Relationship Specialty Start Date End Date Sabino Izaguirre MD [address] [place] [address] [place] [address] PCP - General Family Medicine 01/21/21 documented as of this encounter
--- OUTSIDE RECORDS SUMMARY | 2024-02-04 05:01 | External Medical Summary | Summary of Care ---
Author Name Unknown Organization [facility] Address [address] [facility] [address] Phone [phone] Care Team Providers Care Vacuum Cleaner Operator Name Role Phone Milo Whittington MD Primary Care Provide r Reason for Visit * Reason Comments Chronic Kidney Disease (CKD) Encounter Details Date Type Department Care Team (Late st Contact Info) Description 09/09/2023 1:20 PM EST Office Visit Nephrology, Abilio Barber [address] [facility] [place] [place] [address] Kriss Mendoza MD 200 [place] [address] Uncontrolled hypertension, stage 1*; Resistant hypertension; Hypertension [...] Sublingual Tablet Sublingual (Nitrostat)Indicati ons:Coronary atherosclerosis of [place] coronary artery,Stable angina PLACE 1 TABLET UNDER [...] Impotence of organic origin 04/18/2008 Atherosclerosis of [place] co ronary artery of [place] heart with stable angina pectoris 01/01/2008 S/P [...] cardiovascular examination 09/11/2014 11/12/2014 [employer] Other*[id number] 11/23/2012 10/27/2016 Overview: Study Title: Genomic Markers for Patients with Cardiovascular Disease Project # [id number] Registered Nurse Maternal Child: Laine Cadena MD [phone] Abnormal stress echocardiogram 11/17/2012 01/30/2019 Impotence of [...] mRNA, LNP-s, No Pre serve, 2-Dose Series ([employer]) 01/01/2022,06/19/2021,11/25/2020,10/21 H1N1 2009 Influenza, IM 09/24/2009 Pneumococcal [...] PM EST NEPHROLOGY CLINIC NOTE NephrologyAbilio Dr [facility] [address] 09/09/2023, 1:52 PM Patient Name: Enzo Shaw [...] hospital stay: E coli bowel issue admission [facility] 04/2022 >> no record of this found on review of [facility] charts Laceration to his L index finger yesterday and went to [facility] ER >> got stitches and keflex. EtOH [...] it. Acc by today. Nely gonzalez for [place] trip , back 09/24 REVIEW OF SYSTEMS: [...] (Protonix) TAKE ONE TABLET BY MOUTH EVERY [id number] Tablet 3 Clopidogrel Bisulfate 75 MG Oral [...] primary care provider. Kriss Mendoza MD Nephrology, [address] [place] [address] CC: Ref: MILO WHITTINGTON[[id number]] [address] [place] [address] [place] [address] (office) [phone] (fax) PCP: MILO WHITTINGTON [address] [place] [address] [place] [address] [phone] This chart was completed in part utilizing [employer] Speech Voice Recognition Software. Randomword insertions, pronoun [...] 2:00 PM EST Nurse Only Ancillary [address] [place] [address] [place], Nurse [address] [place] [address] 11/17/2023 11:40 AM EST Office Visit Otolaryngology [facility] [address] [place] [address] Renata Garcia PA-C [address] [place] [address] 11/25/2023 2:00 PM EST Imaging Cardiac Studies, [facility] [address] [place] [address] 12/15/2023 2:00 PM EDT Hospital Encounter ENDO [facility], Endoscopy Room [facility] [address] [place] [phone] Marcellus Thompson MD [address] [place] [address] 12/15/2023 2:00 PM EDT - 12/15/2023 2:30 PM EDT Surgery ENDO [facility], Endoscopy Room [facility] [address] [place] [phone] Marcellus Thompson MD [address] [place] [address] COLONOSCOPY FLEXIBLE PROXIMAL DIAGNOSTIC 12/21/2023 11:00 AM EDT Office Visit Cardiology, [facility] [address] [place] [address] Pennie Naranjo CRNP [address] [place] [address] 01/11/2024 11:30 AM EDT Telemedicine Interventional Pain Center, [facility] [address] [place] [address] Lisandra Murguia PA-C [address] [place] [address] 01/13/2024 10:30 AM EDT Office [address], [address] [address] ZeLois hager PA-C [address] [facility], [place] [address] Scheduled Procedures Name Priority Associated Diagnoses Date/Ti [...] Additional history exists CKD PHOS USE SMARTSET 47661 06/11/2024 06/11/2023 HbA1c 06/11/2024 06/11/2023, 0 04/2022, 04/02/2021, Additional history exists CKD HGB USE SMARTSET 44153 07/05/202407/05, 06/28/2023, 10/22/2022, Additional history exists DTaP,Tdap,and [...] this encounter Medical Devices Implanted Type Area Bicycle Fitter Device Identifier Shelf Expiration Date Model / Serial / Lot Mesh Preshaped Large - [id number] Implanted:Qty : 1 on 12/31/2014 by Jj Weston MD at OR [facility] Right: Groin CR BARD : DAVOL 09/19/2018 [id number] / / [id number] Suture [place] Dbl Load 4.75mm - [id number] Implanted:Qty : 1 on 03/15/2020 by Kar Berry DO at OR [facility] Right: Shoulder [employer] 12/18/2021 AR-2324BCT- 2 / / [id number] documented as of this encounter Visit Diagnoses [...] Advance Directives occurred with: Patient/Family Care Teams Vacuum Cleaner Operator Relationship Specialty Start Date End Date Milo Whittington MD [address] [place] [address] [place] [phone] PCP - General Family Medicine 01/21/21 documented as of this encounter"
--- OUTSIDE RECORDS SUMMARY | 2024-02-04 05:02 | External Medical Summary | Summary of Care ---
Author Name Unknown Organization [facility] Address [address] [place] [address] Phone [phone] Care Team Providers Care Rn Pain Management Name Role Phone Sabino Izaguirre MD Primary Care Provide r Reason for Visit * Reason Onset Date Comments Home Monitoring Alarm 09/01/2023 Encounter Details Date Type Department Care Team (Late st Contact Info) Description 09/01/2023 Home Monitoring Care Coordination [address] [place], [place] [phone] Pamela Angel LPN HTN, GOAL BELOW 140/90* Allergies Active Allergy Reactions Criticality Noted Date Comments Codeine Other (Please comment) High 11/23/2012 hallucinations Enalapril Maleate Cough 11/12/2014 Morphine And Related 02/03/2001 hallucinations documented as of this encounter (statuses as of 09/01/2023) Medications Medication Sig Dispensed Refills Start Date [...] Sublingual Tablet Sublingual (Nitrostat)Indication s:Coronary atherosclerosis of [place] coronary artery,Stable angina PLACE 1 TABLET UNDER [...] DAY 100 Tablet 3 09/17/2022 4 Active Metoprolol Succinate ER 25 MG Oral Tablet Extended Release 24 Hour (toPROL XL)Indications:Palpit ations,Stable angina TAKE 1 TABLET BY MOUTH EVERY DAY AND ONE-HALF TABLET EVERY EVENING 135 Tablet 3 09/17/2022 4 Active Rosuvastatin Calcium 40 MG Oral Tablet (Crestor)Indications: Dyslipidemia, goal LDL below 70 TAKE ONE TABLET BY MOUTH IN THE MORNING 90 Tablet 3 08/27/2022 4 Active Famotidine 20 MG Oral Tablet (Pepcid)Indications:G astroesophageal reflux disease without esophagitis TAKE ONE TABLET BY MOUTH TWICE A DAY 180 Tablet 3 08/05/2022 4 Active Sildenafil Citrate 50 MG Oral Tablet take 1 tablet by mouth 1-4 hours before intercourse. 4 Tablet 2 04/01/2023 Active ampicillin-sulbactam IJ SOLN Q6H 0 06/24/2023 Active Doxycycline Hyclate 100 MG Oral Tablet Take 1 Tablet by mouth in the morning and 1 Tablet before bedtime. 0 Active Gabapentin 100 MG Oral Capsule (Neurontin)Indication s:Cervical radicular pain Take 1 Capsule by mouth in the morning and 1 Capsule at noon and 1 Capsule before bedtime. 270 Capsule 1 07/12/2023 Active hydroCHLOROthiazide 25 MG Oral Tablet (Hydrodiuril)Indicati ons:HTN, goal below 140/90 Take 1 Tablet by mouth in the morning. 90 Tablet 3 07/12/2023 Active Doxycycline Monohydrate 100 MG Oral Tablet 0 07/09/2023 Active Cephalexin 500 MG Oral Capsule (Keflex) 0 07/09/2023 Act eagle documented as of this encounter (statuses as of 09/01/2023) Active Problems Problem Noted Date Diagnosed Date [...] Impotence of organic origin 04/18/2008 Atherosclerosis of [place] co ronary artery of [place] heart with stable angina pectoris 01/01/2008 S/P angioplasty with stent 06/30/2006 Esophageal reflux 10/29/2005 ADVANCE DIRECTIVE INFORMATION 08/21/2005 Overview: No, Advance Directive brochure given to patient at prior appointment. documented as of this encounter (statuses as of 09/01/2023) Resolved Problems Problem Noted Date Diagnosed Date Resolved Date Cough due to RANDALL inhibitor 11/12/2014 0 01/30/2019 Hyperkalemia 11/12/2014 11/16/2018 Pre-operative cardiovascular examination 09/11/2014 11/12/2014 [employer] Other*[id number] 11/23/2012 10/27/2016 Overview: Study Title: Genomic Markers for Patients with Cardiovascular Disease Project # [id number] Manager Occupational: Laine Cadena MD [phone] Abnormal stress echocardiogram 11/17/2012 01/30/2019 Impotence of organic origin 04/18/2008 11/16/2018 Chest pain 08/31/2006 01/30/2019 HIP & THIGH INJURY NOS 12/05/200401/30 Rosacea 02/23/2001 01/30/2019 Dyslipidemia, goal to be determined 08/29/2009 Overview: Per Lipid Taxonomy. HYPERTENSION NOS 08/08/2009 Overview: Modified per HTN protocol #16. documented as of this encounter (statuses as of 09/01/2023) Immunizations Name Administration Dates Next Due COVID-19 mRNA, LNP-s, No Pre serve, 2-Dose Series ([employer]) 01/01/2022,06/19/2021,11/25/2020,10/21 H1N1 2009 Influenza, IM 09/24/2009 Pneumococcal [...] as of this encounter Progress Notes * Pamela Angel LPN - 09/01/2023 9:13 AM EST Enzo Shaw [id number] Enzo Shaw is currently participating in the [employer] Hypertension Management Program and had a reading on 09/01/23 of 147/80. Pt has alerted for an Average BP over 7 days > 140/90 . Parameters are currently set as follows: Average BP over 7 days > 140/90 Singular Systolic BP Reading < 90 or > 180 Singular Diastolic BP Reading <50 or > 120 Patient is not reporting new symptoms or concerns. The patient does have all his blood pressure medications and is taking them as prescribed. Please review the recent history of home RPM readings in Epic Synopsis Flowsheets and work with your clinical staff if any additional actions or interventions are required. If you would like to customize the alert parameters and/or instructions for this patient, please let me know and we can have them changed. Thank you! Pamela Angel LPN documented in this encounter Plan of Treatment Upcoming Encounters Date Type Department Care Team (Latest Contact Info) Description 09/09/2023 1:20 PM EST Office Visit [facility]phrology, [facility] [place] [address] Kriss Mendoza MD [address] [place] [address] 10/12/2023 2:30 PM EST Hospital Encounter ENDO OSS[facility], Endoscopy Room [facility] [address] [place] [phone] Héctor Gary MD [address] [place] [address] 10/12/2023 2:30 PM EST - 10/12/2023 3:00 PM EST Surgery ENDO [facility], Endoscopy Room [facility] [address] [place] [phone] Héctor Gary MD [address] [place] [address] COLONOSCOPY FLEXIBLE PROXIMAL DIAGNOSTIC 11/15/2023 2:00 PM EST Nurse Only Ancillary [place] [address] [place] [address] Veronica Nurse [address] [place] [address] 11/17/2023 11:40 AM EST Office Visit Otolaryngology [facility] [address] [place] [address] Renata Garcia PA-C [address] [place] [address] 12/21/2023 11:00 AM EDT Office Visit Cardiology, [facility] [address] [place] [address] Pennie Naranjo CRNP [address] [place] [address] 01/11/2024 11:30 AM EDT Telemedicine Interventional Pain Center, [facility] [address] [place] [address] Lisandra Murguia PA-C [address] [place] [address] Scheduled Procedures Name Priority Associated Diagnoses Date/Ti me COLONOSCOPY FLEXIBLE PROXIMAL DIAGNOSTIC Recall History of colon polyps 10/12/2023 2:30 PM EST Health Maintenance Due Date Last Done Comments COVID-19 Vaccine ( season) 2023 08/05/2022, 01/01/2022, 06/19/2021, Additional history exists COLONOSCOPY-EVERY 3 YRS AGES 18-100 06/05/2023 06/05/2020, 06/05/2020, 02/08/2017, Additional history exists Albumin/Creatinine Ratio 10/22/2023 10/22/2022, 090 04/2022 Depression Screening 11/11/2023 11/11/2022 GFR 01/04/2024 07/05/2023, 06/20, 06/28/2023, Additional history exists CKD PHOS USE SMARTSET 38380 06/11/2024 06/11/2023 HbA1c 06/11/2024 06/11/2023, 090 04/2022, 04/02/2021, Additional history exists CKD HGB USE SMARTSET 50663 07/05/202407/05, 06/28/2023, 10/22/2022, Additional history exists DTaP,Tdap,and [...] this encounter Medical Devices Implanted Type Area Assembler Corncob Pipes Device Identifier Shelf Expiration Date Model / Serial / Lot Mesh Preshaped Large - [id number] Implanted:Qty : 1 on 12/31/2014 by Jj Weston MD at OR [facility] Right: Groin CR BARD : DAVOL 09/19/2018 [id number] / / [id number] Suture [place] Dbl Load 4.75mm - [id number] Implanted:Qty : 1 on 03/15/2020 by Kar Berry DO at OR [facility] Right: Shoulder [employer] 12/18/2021 AR-2324BCT- 2 / / [id number] documented as of this encounter Visit Diagnoses [...] Advance Directives occurred with: Patient/Family Care Teams Rn Pain Management Relationship Specialty Start Date End Date Sabino Izaguirre MD [address] [place] [address] [place] [phone] PCP - General Family Medicine 5/4/21 documented as of this encounter
--- OUTSIDE RECORDS SUMMARY | 2024-02-04 05:02 | External Medical Summary | Summary of Care ---
Author Name Unknown Organization [facility] Address [address] [place] [address] Phone [phone] Care Team Providers Care Residential Air Sealing Technician Name Role Phone Milo Whittington MD Primary Care Provide r Reason for Visit * Reason Comments eRx-Medication Refill Encounter Details Date Type Department Care Team (Late st Contact Info) Description 09/06/2023 Refill Family Medicine [address] [address] Milo Whittington MD [address] [place] [address] [place] [address] Allergies Active Allergy Reactions Criticality Noted Date Comments Codeine Other (Please comment) High 11/23/2012 hallucinations Enalapril Maleate Cough 11/12/2014 Morphine And Related 02/03/2001 hallucinations documented as of this encounter (statuses as of 09/08/2023) Medications Medication Sig Dispensed Refills Start Date [...] Sublingual Tablet Sublingual (Nitrostat)Indicati ons:Coronary atherosclerosis of [place]ht[place] coronary artery,Stable angina PLACE 1 TABLET UNDER THE TONGUE EVERY 5 MINUTES NEEDED FOR PAIN, CHEST 25 Tablet 5 3 02/29/20 24 Active Losartan Potassium 100 MG Oral Tablet (Cozaar) TAKE ONE TABLET BY MOUTH EVERY DAY IN THE MORNING 90 Tablet 3 3 02/11/20 24 Active Torsemide 5 MG Oral Tablet (Demadex)Indication s:Chronic kidney disease, stage 3a (HCC) TAKE ONE TABLET BY MOUTH IN THE MORNING 90 Tablet 3 3 01/28/20 24 Active Pantoprazole Sodium 40 MG Oral Tablet Delayed Release (Protonix) TAKE ONE TABLET BY MOUTH EVERY DAY 100 Tablet 3 2 11/05/19 24 Active Metoprolol Succinate ER 25 MG Oral Tablet Extended Release 24 Hour (toPROL XL)Indications:Palp itations,Stable angina TAKE 1 TABLET BY MOUTH EVERY DAY AND ONE-HALF TABLET EVERY EVENING 135 Tablet 3 2 10/26/19 24 Active Rosuvastatin Calcium 40 MG Oral Tablet (Crestor)Indication s:Dyslipidemia, goal LDL below 70 TAKE ONE TABLET BY MOUTH IN THE MORNING 90 Tablet 3 2 10/11/19 24 Active Famotidine 20 MG Oral Tablet (Pepcid)Indications :Gastroesophageal reflux disease without esophagitis TAKE ONE TABLET BY MOUTH TWICE A DAY 180 Tablet 3 2 10/11/19 24 Active ampicillin-sulbacta m IJ SOLN Q6H 0 3 Active Doxycycline Hyclate 100 MG Oral Tablet Take 1 Tablet by mouth in the morning and 1 Tablet before bedtime. 0 Active Gabapentin 100 MG Oral Capsule (Neurontin)Indicati ons:Cervical radicular pain Take 1 Capsule by mouth in the morning and 1 Capsule at noon and 1 Capsule before bedtime. 270 Capsule 1 3 Active hydroCHLOROthiazide 25 MG Oral Tablet (Hydrodiuril)Indica tions:HTN, goal below 140/90 Take 1 Tablet by mouth in the morning. 90 Tablet 3 3 Active Doxycycline Monohydrate 100 MG Oral Tablet 0 3 Active Cephalexin 500 MG Oral Capsule (Keflex) 0 3 Active Sildenafil Citrate 50 MG Oral Tablet TAKE ONE TABLET BY MOUTH 1 TO 4 HOURS BEFORE INTERCOURSE 4 Tablet 2 3 Active Sildenafil Citrate 50 MG Oral Tablet take 1 tablet by mouth 1-4 hours before intercourse. 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 documented as of this encounter (statuses as of 09/08/2023) Resolved Problems Problem Noted Date Diagnosed Date Resolved Date Cough due to RANDALL inhibitor 11/12/2014 0 01/30/2019 Hyperkalemia 11/12/2014 11/16/2018 Pre-operative cardiovascular examination 09/11/2014 11/12/2014 [employer] Other*[id number] 11/23/2012 10/27/2016 Overview: Study Title: Genomic Markers for Patients with Cardiovascular Disease Project # [id number] Wastewater Manager: Laine Cadena MD [phone] Abnormal stress echocardiogram 11/17/2012 01/30/2019 Impotence of organic origin 04/18/2008 11/16/2018 Chest pain 08/31/2006 01/30/2019 HIP & THIGH INJURY NOS 12/05/200401/30 Rosacea 02/23/2001 01/30/2019 Dyslipidemia, goal to be determined 08/29/2009 Overview: Per Lipid Taxonomy. HYPERTENSION NOS 08/08/2009 Overview: Modified per HTN protocol #16. documented as of this encounter (statuses as of 09/08/2023) Immunizations Name Administration Dates Next Due COVID-19 mRNA, LNP-s, No Pre serve, 2-Dose Series (Writer's Bloq) 01/01/2022,06/19/2021,11/25/2020,10/21 H1N1 2009 Influenza, IM 09/24/2009 Pneumococcal [...] Telephone Encounter - Milo Whittington MD - 09/08/2023 8:31 AM EST Signed Prescriptions: Disp Refills Sildenafil Citrate 50 MG Oral Tablet 4 Tabl*2 Sig: TAKE ONE TABLET BY MOUTH 1 TO 4 HOURS BEFORE INTERCOURSE Authorizing Provider: MILO WHITTINGTON * Telephone Encounter - Mattie Fong RPh - 09/07/2023 10:29 AM ESTPending Prescriptions: Disp Refills Sildenafil Citrate 50 MG Oral Tablet 4 Tabl*2 Sig: TAKE ONE TABLET BY MOUTH 1 TO 4 HOURS BEFORE INTERCOURSE * Telephone Encounter - Mattie Fong RPh - 09/07/2023 10:29 AM EST Unable to authorize medication refills for pended medication(s) at this time. Part of the protocol criteria used for refill authorization was not satisfied. Patient is also prescribed nitroglycerin. Please approve if appropriate. Thanks, Sathya LindsayD Clinical Pharmacist [facility] ([facility]) [phone] 09/07/2023, 10:29 AM * Telephone Encounter - Mattie Fong RPh - 09/07/2023 10:29 AM EST Pending Prescriptions: Disp Refills Sildenafil Citrate 50 MG Oral Tablet [Pha*4 Tabl*2 Sig: TAKE ONE TABLET BY MOUTH 1 TO 4 HOURS BEFORE INTERCOURSE Last Visit: 07/01/2023 (in office), Visit date not found (telemedicine) Next Visit: Visit date not found If no future appointments scheduled, and last appointment is greater than a year ago, please schedule patient for a follow-up appointment Last date the medication was ordered: 04/01/23 Pharmacy: [id number] [address] [facility] Is this request for a controlled substance? No Urine Drug Screen:No results found. However, due to the size of the patient record, not all encounters were searched. Please check Results Review for a complete set of results. Patient Phone Numbers Labs: Lab Results Component Value Date/Time CREAT 1.34 (A) 07/05/2023 12:00 AM CREAT 1.2 04/22/2020 03:50 PM POTASSIUM 4.0 07/05/2023 12:00 AM POTASSIUM 4.2 04/22/2020 03:50 PM TSH 1.14 03/30/2022 08:55 AM TSH 0.70 11/25/2018 01:09 PM LDLCALC 60 03/30/2022 08:55 AM LDLCALC 51 10/03/2018 02:32 PM LDLDIRECT NOT APPLICABLE 10/03/2018 02:32 PM LDLDIRECT 157 (H) 10/26/2012 09:43 AM ALT 25 06/11/2023 11:06 AM ALT 28 04/22/2020 03:50 PM HGBA1C 5.4 06/11/2023 11:06 AM HGBA1C 5.8 (H) 04/25/2020 09:14 AM documented in this encounter Plan of Treatment Upcoming Encounters Date Type Department Care Team (Latest Contact Info) Description 09/09/2023 1:20 PM EST Office Visit Nephrology, [facility] [address] [place] [address] Kriss Mendoza MD [address] [place] [address] 11/15/2023 2:00 PM EST Nurse Only Ancillary [address] [place] [address] [place], Nurse [address] [place] [address] 11/17/2023 11:40 AM EST Office Visit Otolaryngology [facility] [address] [place] [address] Renata Garcia PA-C [address] [place] [address] 11/25/2023 2:00 PM EST Imaging Cardiac Studies, [facility] [address] [place] [address] 12/15/2023 2:00 PM EDT Hospital Encounter ENDO OSSC, Endoscopy Room [facility] [address] [place] [phone] Marcellus Thompson MD [address] [place] [address] 12/15/2023 2:00 PM EDT - 12/15/2023 2:30 PM EDT Surgery ENDO OSSC, Endoscopy Room [facility] [address] [place] [phone] Marcellus Thompson MD [address] [place] [address] COLONOSCOPY FLEXIBLE PROXIMAL DIAGNOSTIC 12/21/2023 11:00 AM EDT Office Visit Cardiology, [facility] [address] [place] [address] Pennie Naranjo CRNP [address] [place] [address] 01/11/2024 11:30 AM EDT Telemedicine Interventional Pain Center, [facility] [address] [place] [address] Lisandra Murguia PA-C [address] [place] [address] Scheduled Procedures Name Priority Associated Diagnoses Date/Ti me COLONOSCOPY FLEXIBLE PROXIMAL DIAGNOSTIC Recall History of colon polyps 12/15/2023 2:00 PM EDT Health Maintenance Due Date Last Done Comments COVID-19 Vaccine (2022-24 season) 2023 08/05/2022, 01/01/2022, 06/19/2021, Additional history exists COLONOSCOPY-EVERY 3 YRS AGES 18-100 06/05/2023 06/05/2020, 06/05/2020, 02/08/2017, Additional history exists Albumin/Creatinine Ratio 10/22/2023 10/22/2022, 090 04/2022 Depression Screening 11/11/2023 11/11/2022 GFR 01/04/2024 07/05/2023, 06/20, 06/28/2023, Additional history exists CKD PHOS USE SMARTSET 85413 06/11/2024 06/11/2023 HbA1c 06/11/2024 06/11/2023, 090 04/2022, 04/02/2021, Additional history exists CKD HGB USE SMARTSET 17442 07/05/202407/05, 06/28/2023, 10/22/2022, Additional history exists DTaP,Tdap,and [...] this encounter Medical Devices Implanted Type Area Boardmarker Device Identifier Shelf Expiration Date Model / Serial / Lot Mesh Preshaped Large - [id number] Implanted:Qty : 1 on 12/31/2014 by Jj Weston MD at OR [facility] Right: Groin CR BARD : DAVOL 09/19/2018 [id number] / / [id number] Suture [place]tt Dbl Load 4.75mm - [id number] Implanted:Qty : 1 on 03/15/2020 by Kar Berry DO at [facility] Right: Shoulder [employer] 12/18/2021 [id number]- 2 / / [id number] documented as of this encounter Advance Directives Latest Code Status on File Code Status Date Activated Date Inactivated Comments Full Code 11/23/2012 8:27 PM 11/24/2012 8:07 PM This or emilia reflects the patients wishes and were consensually agreed upon. Question Answer Comments Discussion of Advance Directives occurred with: Patient/Family Care Teams Residential Air Sealing Technician Relationship Specialty Start Date End Date Milo Whittington MD [address] [place] [address] [place] [address] PCP - General Family Medicine 01/21/21 documented as of this encounter
--- OUTSIDE RECORDS SUMMARY | 2024-02-04 05:02 | External Medical Summary | Summary of Care ---
Author Name Unknown Organization [facility] Address [address] [place] [address] Phone [phone] Care Team Providers Care Rewind Operator Name Role Phone Sabino Izaguirre MD Primary Care Provide r Reason for Visit * Reason Onset Date Comments Home Monitoring Alarm 09/01/2023 Encounter Details Date Type Department Care Team (Late st Contact Info) Description 09/01/2023 Home Monitoring Care Coordination [address] [place], [place] [id number] Pamela Anegl LPN HTN, GOAL BELOW 140/90* Allergies Active Allergy Reactions Criticality Noted Date Comments Codeine Other (Please comment) High 11/23/2012 hallucinations Enalapril Maleate Cough 11/12/2014 Morphine And Related 02/03/2001 hallucinations documented as of this encounter (statuses as of 09/02/2023) Medications Medication Sig Dispensed Refills Start Date [...] Sublingual Tablet Sublingual (Nitrostat)Indication s:Coronary atherosclerosis of [place] coronary artery,Stable angina PLACE 1 TABLET UNDER [...] as of this encounter (statuses as of 09/02/2023) Active Problems Problem Noted Date Diagnosed Date [...] Impotence of organic origin 04/18/2008 Atherosclerosis of [place] co ronary artery of [place] heart with stable angina pectoris 01/01/2008 S/P angioplasty with stent 06/30/2006 Esophageal reflux 10/29/2005 ADVANCE DIRECTIVE INFORMATION 08/21/2005 Overview: No, Advance Directive brochure given to patient at prior appointment. documented as of this encounter (statuses as of 09/02/2023) Resolved Problems Problem Noted Date Diagnosed Date Resolved Date Cough due to RANDALL inhibitor 11/12/2014 0 01/30/2019 Hyperkalemia 11/12/2014 11/16/2018 Pre-operative cardiovascular examination 09/11/2014 11/12/2014 [employer] Other*[id number] 11/23/2012 10/27/2016 Overview: Study Title: Genomic Markers for Patients with Cardiovascular Disease Project # [id number] Patrol Sergeant Sheriff'S Office: Laine Cadena MD [phone] Abnormal stress echocardiogram 11/17/2012 01/30/2019 Impotence of organic origin 04/18/2008 11/16/2018 Chest pain 08/31/2006 01/30/2019 HIP & THIGH INJURY NOS 12/05/200401/30 Rosacea 02/23/2001 01/30/2019 Dyslipidemia, goal to be determined 08/29/2009 Overview: Per Lipid Taxonomy. HYPERTENSION NOS 08/08/2009 Overview: Modified per HTN protocol #16. documented as of this encounter (statuses as of 09/02/2023) Immunizations Name Administration Dates Next Due COVID-19 mRNA, LNP-s, No Pre serve, 2-Dose Series (SiOnyx) 01/01/2022,06/19/2021,11/25/2020,10/21 H1N1 2009 Influenza, IM 09/24/2009 Pneumococcal [...] of this encounter Progress Notes * Jazz Gibbons RPh - 09/02/2023 8:19 AM EST Systolic Diastolic Pulse Systolic Diastolic 140 71 Average 133 72 146 75 124 70 High 75 75 128 70 Low 70 70 129 74 Range 5 5 Count 5 5 Patient's average BP near goal. No changes recommended at this time, upcoming OV with Dr Ledesma on 09/09. Jazz Gibbons RPh, PharmD Clinical Pharmacist - [facility] 09/02/2023, 8:20 AM [phone] * Pamela Angel LPN - 09/01/2023 9:13 AM EST Enzo Shaw [phone] Enzo Shaw is currently participating in the [...] 09/09/2023 1:20 PM EST Office Visit Nephrology, [facility] [address] [facility] [place] [address] Kriss Mendoza MD [address] [facility] [place] [address] 10/12/2023 2:30 PM EST Hospital Encounter ENDO OSSC, Endoscopy Room [facility] [address] [place] [address] Héctor Gary MD [address] [place] [address] 10/12/2023 2:30 PM EST - 10/12/2023 3:00 PM EST Surgery ENDO O[facility], Endoscopy Room [facility] [address] [place] [phone] Héctor Gary MD [address] [place] [address] COLONOSCOPY FLEXIBLE PROXIMAL DIAGNOSTIC 11/15/2023 2:00 PM EST Nurse Only Ancillary [address] [place] [address] [place], Nurse [address] [place] [address] 11/17/2023 11:40 AM EST Office Visit Otolaryngology [facility] [address] [place] [address] Renata Garcia PA-C [address] [place] [address] 12/21/2023 11:00 AM EDT Office Visit Cardiology, [facility] [address] [place] [address] Pennie Naranjo CRNP [address] [place] [address] 01/11/2024 11:30 AM EDT Telemedicine Interventional Pain Center, [facility] [address] [place] [address] Lisandra Murguia PA-C [address] [place] [address] Scheduled Procedures Name Priority Associated Diagnoses Date/Ti [...] Additional history exists CKD PHOS USE SMARTSET 40705 06/11/2024 06/11/2023 HbA1c 06/11/2024 06/11/2023, 0 04/2022, 04/02/2021, Additional history exists CKD HGB USE SMARTSET 01686 07/05/202407/05, 06/28/2023, 10/22/2022, Additional history exists DTaP,Tdap,and [...] this encounter Medical Devices Implanted Type Area Check Processing Clerk Device Identifier Shelf Expiration Date Model / Serial / Lot Mesh Preshaped Large - [id number] Implanted:Qty : 1 on 12/31/2014 by Jj Weston MD at OR [facility] Right: Groin CR BARD : DAVOL 09/19/2018 [id number] / / [id number] Suture [place] Dbl Load 4.75mm - [id number] Implanted:Qty : 1 on 03/15/2020 by Kar Berry DO at OR [facility] Right: Shoulder [employer] 12/18/2021 AR-[id number]- 2 / / [id number] documented as of this encounter Visit Diagnoses [...] Advance Directives occurred with: Patient/Family Care Teams Rewind Operator Relationship Specialty Start Date End Date Sabino Izaguirre MD [address] [place] [address] [place] [address] PCP - General Family Medicine 01/21/21 documented as of this encounter
--- OUTSIDE RECORDS SUMMARY | 2024-02-04 05:02 | External Medical Summary | Summary of Care ---
Author Name Unknown Organization [facility] Address [address] [place] [address] Phone [phone] Care Team Providers Care Insurance Inspector Name Role Phone Sabino Whittington MD Primary Care Provide r Reason for Visit * Reason Comments Medication Refill Encounter Details Date Type Department Care Team (Late st Contact Info) Description 09/11/2023 Refill Family Medicine [address] [address] Sabino Whittington MD [address] [place] [address] [place] [address] S/P angioplasty with stent Allergies Active Allergy Reactions Criticality Noted Date Comments Enalapril Maleate Cough 11/12/2014 documented as of this encounter (statuses as of 09/14/2023) Medications Medication Sig Dispensed Refills Start Date [...] Sublingual Tablet Sublingual (Nitrostat)Indicatio ns:Coronary atherosclerosis of [place] coronary artery,Stable angina PLACE 1 TABLET UNDER [...] 100 Tablet 3 2 11/05/19 24 Active Rosuvastatin Calcium 40 MG Oral Tablet (Crestor)Indications :Dyslipidemia, goal LDL below 70 TAKE ONE TABLET BY MOUTH IN THE MORNING 90 Tablet 3 2 10/11/19 24 Active Famotidine 20 MG Oral Tablet (Pepcid)Indications: Gastroesophageal reflux disease without esophagitis TAKE ONE TABLET BY MOUTH TWICE A DAY 180 Tablet 3 2 10/11/19 24 Active Gabapentin 100 MG Oral Capsule [...] THE MORNING 100 Tablet 1 3 Active Clopidogrel Bisulfate 75 MG Oral Tablet (pLAVix)Indications: S/P angioplasty with stent TAKE ONE TABLET BY MOUTH IN THE MORNING 100 Tablet 3 2 09/11/20 23 Discontinu ed(Refill) documented as of this encounter (statuses as of 09/14/2023) Active Problems Problem Noted Date Diagnosed Date [...] Impotence of organic origin 04/18/2008 Atherosclerosis of [place] co ronary artery of [place] heart with stable angina pectoris 01/01/2008 S/P angioplasty with stent 06/30/2006 Esophageal reflux 10/29/2005 ADVANCE DIRECTIVE INFORMATION 08/21/2005 Overview: No, Advance Directive brochure given to patient at prior appointment. documented as of this encounter (statuses as of 09/14/2023) Resolved Problems Problem Noted Date Diagnosed Date Resolved Date Cough due to RANDALL inhibitor 11/12/2014 0 01/30/2019 Hyperkalemia 11/12/2014 11/16/2018 Pre-operative cardiovascular examination 09/11/2014 11/12/2014 [employer] Other*[id number] 11/23/2012 10/27/2016 Overview: Study Title: Genomic Markers for Patients with Cardiovascular Disease Project # [id number] Worship Leader: Laine Cadena MD [phone] Abnormal stress echocardiogram 11/17/2012 01/30/2019 Impotence of organic origin 04/18/2008 11/16/2018 Chest pain 08/31/2006 01/30/2019 HIP & THIGH INJURY NOS 12/05/200401/30 Rosacea 02/23/2001 01/30/2019 Dyslipidemia, goal to be determined 08/29/2009 Overview: Per Lipid Taxonomy. HYPERTENSION NOS 08/08/2009 Overview: Modified per HTN protocol #16. documented as of this encounter (statuses as of 09/14/2023) Immunizations Name Administration Dates Next Due COVID-19 mRNA, LNP-s, No Pre serve, 2-Dose Series ([place]) 01/01/2022,06/19/2021,11/25/2020,10/21 H1N1 2009 Influenza, IM 09/24/2009 Pneumococcal [...] encounter Miscellaneous Notes * Telephone Encounter - Jameson Almanzar [facility] - 09/14/2023 8:19 AM EST Signed Prescriptions: Disp Refills Clopidogrel Bisulfate 75 MG Oral Tablet (p*100 Ta*1 Sig: TAKE ONE TABLET BY MOUTH IN THE MORNINGAuthorizing Provider: Reid WHITTINGTON User: JAMESON ALMANZAR documented in this encounter Plan of Treatment Upcoming Encounters Date Type Department Care Team (Latest Contact Info) Description 11/15/2023 2:00 PM EST Nurse Only Ancillary [address] [place] [address] [place], Nurse [address] [place] [address] 11/17/2023 11:40 AM EST Office Visit Otolaryngology [facility] [address] [place] [address] Renata Garcia PA-C [address] [place] [address] 11/25/2023 2:00 PM EST Imaging Cardiac Studies, [facility] [address] [place] [address] 12/15/2023 2:00 PM EDT Hospital Encounter ENDO OSSC, Endoscopy Room [facility] [address] [place] [phone] Marcellus Thompson MD [address] [place] [address] 12/15/2023 2:00 PM EDT - 12/15/2023 2:30 PM EDT Surgery ENDO OSSC, Endoscopy Room [facility] [address] [place] [phone] Marcellus Thompson MD [address] [place] [address] COLONOSCOPY FLEXIBLE PROXIMAL DIAGNOSTIC 12/21/2023 11:00 AM EDT Office Visit Cardiology, [facility] [address] [place] [address] Pennie Naranjo CRNP [address] [place] [address] 01/11/2024 11:30 AM EDT Telemedicine Interventional Pain Center, [facility] [address] [place] [address] Lisandra Murguia PA-C [address] [place] [address] 01/13/2024 10:30 AM EDT Office Visit Nephrology, [facility] [address] [place] [address] Zemaitis, Lois Neff PA-C [address] [place] [address] Scheduled Procedures Name Priority Associated Diagnoses Date/Ti [...] Additional history exists CKD PHOS USE SMARTSET 43508 06/11/2024 06/11/2023 HbA1c 06/11/2024 06/11/2023, 090 04/2022, 04/02/2021, Additional history exists CKD HGB USE SMARTSET 82120 07/05/202407/05, 06/28/2023, 10/22/2022, Additional history exists DTaP,Tdap,and [...] this encounter Medical Devices Implanted Type Area Saddle Lining Stitcher Device Identifier Shelf Expiration Date Model / Serial / Lot Mesh Preshaped Large - [id number] Implanted:Qty : 1 on 12/31/2014 by Jj Weston MD at OR [facility] Right: Groin CR BARD : DAVOL 09/19/2018 [id number] / / [id number] Suture [place] Dbl Load 4.75mm - [id number] Implanted:Qty : 1 on 03/15/2020 by Kar Berry DO at OR [facility] Right: Shoulder [employer] 12/18/2021 AR-2324BCT- 2 / / [id number] documented as of this encounter Visit Diagnoses Diagnosis S/P angioplasty with stent Postsurgical percutaneous transluminal coronary angioplasty status History of colon polyps Personal history of colonic polyps documented in this encounter Advance Directives Latest Code Status on File Code Status Date Activated Date Inactivated Comments Full Code 11/23/2012 8:27 PM 11/24/2012 8:07 PM This or emilia reflects the patients wishes and were consensually agreed upon. Question Answer Comments Discussion of Advance Directives occurred with: Patient/Family Care Teams Insurance Inspector Relationship Specialty Start Date End Date Sabino Whittington MD [address] [place] [address] [place] [address] PCP - General Family Medicine 01/21/21 documented as of this encounter
[2024-02-04 06:33] LABS: Basophils # (auto) 0.07 K/uL (0.00-0.20); Basophils % (auto) 0.8 %; Eosinophils # (auto) 0.41 K/uL (0.00-0.50); Eosinophils % (auto) 4.7 %; Hemoglobin 13.3 g/dl (14.0-18.0); Immature Granulocytes # (auto) 0.03 K/uL (0.01-0.20); Immature Granulocytes % (auto) 0.3 %; Lymphocytes # (auto) 1.45 K/uL (1.20-3.40); Lymphocytes % (auto) 16.7 %; Mean Corpuscular Hemoglobin 30.2 pg (25.0-34.0); Mean Corpuscular Hgb Conc 34.1 g/dL (32.0-36.0); Mean Corpuscular Volume 88.4 fL (80.0-100.0); Mean Platelet Volume 11.5 fL (9.4-12.4); Monocytes # (auto) 1.06 K/uL (0.11-0.59); Monocytes % (auto) 12.2 %; Neutrophils # (auto) 5.68 K/uL (1.40-6.50); Neutrophils % (auto) 65.3 %; Platelet Count 203 K/uL (130-400); RDW Standard Deviation 42.4 fL (36.4-46.3); Red Blood Count 4.41 M/uL (4.70-6.10)
[2024-02-04 06:37] LABS: BUN Creatinine Ratio 17.2 (10-20); Calcium 9.2 mg/dl (8.6-10.3); Creatinine Clr Calc Pharmacy 56.5 ml/min; Est GFR (African American) 56.1 ml/min; Est GFR (Non-African American) 48.4 ml/min
[2024-02-04] MEDS: ATROPINE SULFATE 0.1 MG/ML 10ML SYR IV ONE (10:21)
--- NOTE | 2024-02-04 10:21 | Cardiology Progress Note ---
Date of Service February 04, 2024 Assessment & Plan (1) Arm pain: Plan: The patient had undergone an exercise stress echocardiogram a week ago as an outpatient at [facility] on 01/28/2024 at which time he walked 6 minutes on a Edgardo protocol, the heart rate response to exercise however was attenuated due to his underlying beta-niraj therapy and he only achieved 66% of the age-predicted maximal heart rate. No evidence of ischemia was inducible at the level of exercise achieved however it was noted that the sensitivity of the test for detecting ischemia was reduced. The test had been performed at that time due to concerns of shortness of breath, not due to the left arm pain for which he presented to the hospital at this time. Cardiac workup reassuring thus far with negative EKG, negative serial high- sensitivity troponin levels. The patient underwent a resting echocardiogram and dobutamine stress echocardiogram this morning. The resting echocardiogram revealed normal resting wall motion and normal LVEF. Dobutamine stress echocardiogram was negative for ischemia having achieved a target heart rate. Patient describes 6/10 left forearm pain at baseline before the stress test was started that did not worsen with pharmacologic stress. No symptoms suggestive of angina were reported. At present, I do not think that the left arm pain is an anginal equivalent. Possibly musculoskeletal or neuropathic pain. It does not seem to be exac erbated by the patient lifting his arm above his head. Will defer to the hospitalist service for further evaluation. (2) HTN (hypertension): Plan: Outpatient medication list includes 3 diuretics including torsemide, HCTZ and spironolactone. Spironolactone has been placed on hold as an outpatient due to concerns of rash and this will remain on hold. The patient's creatinine is slightly worse than his usual baseline on presentation. Therefore losartan, torsemide, HCTZ had been held on presentation. Blood pressure mildly above goal at present. If no additional imaging studies planned such as contrast for a CT or MRI, would first add back his losartan 100 mg, followed by reinitiating torsemide and HCTZ at time of discharge. Continue current doses of metoprolol and amlodipine. (3) CAD S/P percutaneous coronary angioplasty: Plan: Continue chronic dual antiplatelet therapy with aspirin and clopidogrel. Continue rosuvastatin. I agree with subcutaneous heparin for DVT prophylaxis. -- Cardiology to sign off at this point. Dr. Marshall is rounding for the weekend. Call with questions or concerns. Admission and Anticipated Discharge Date Admission Date: February 03, 2024 Subjective Patient seen prior to , during and after a dobutamine stress echo. Patient without chest discomfort or shortness of breath. Does have ongoing left forearm pain that extends from the medial aspect of his elbow down to his wrist. He notes that his left hand is slightly swollen compared to his right hand. He did have ligament surgery on his left thumb within the last year, but this site does not seem to be acutely inflamed. Review of Systems Review of Systems: All systems reviewed & are unremarkable except as noted in HPI & below Physical Exam Constitutional: WD/WN, vitals as above Eyes: PERRL, conjunctivae normal, anicteric sclerae Respiratory: normal respiratory effort, lungs clear to auscultation Cardiovascular: RRR, no murmur, no edema Gastrointestinal (Abdomen): normal bowel sounds, soft, nontender, no hepatosplenomegaly Neurologic: PERRL, EOMI, accommodation nl, no face palsy, no dysarthria Results & Data Vital Signs (Past 12 Hours) Vital Signs Temp Pulse Pulse Resp BP Pulse Ox O2 Del Method 02/04/24 08:00 36.7 C 57 L 18 150/80 H 94 Room Air 02/04/24 03:03 36.8 C 65 20 158/83 H 96 Room Air 02/03/24 23:23 36.7 C 74 20 163/76 H 95 Room Air 02/03/24 23:00 75 Laboratory Results CBC 02/03/24 02/04/24 Range/Units 11:47 05:48 WBC 8.70 (4.8-10.8) K/ul RBC 4.41 L (4.70-6.10) M/uL Hgb 13.2 L 13.3 L (14.0-18.0) g/dl Hct 39.3 L 39.0 L (42.0-52.0) % Plt Count 203 (130-400) K/uL Neut # (Auto) 5.68 (1.40-6.50) K/uL Lymph # (Auto) 1.45 (1.20-3.40) K/uL [place] # (Auto) 1.06 H (0.11-0.59) K/uL Eos # (Auto) 0.41 (0.00-0.50) K/uL Baso # (Auto) 0.07 (0.00-0.20) K/uL Comprehensive Metabolic Panel 02/04/24 Range/Units 05:48 Sodium 134 L (136-145) mmol/L Potassium 4.0 (3.5-5.1) mmol/L Chloride 102 (98-107) mmol/L Carbon Dioxide 25 (21-32) mmol/L BUN 25 H (6-23) mg/dl Creatinine 1.45 H (0.6-1.4) mg/dl Glucose 110 H (70-99(Fasting)) mg/dl Calcium 9.2 (8.6-10.3) mg/dl Intake and Output 02/03/24 02/04/24 02/04/24 22:59 06:59 14:59 Intake Total 650 / 2150 1500 / 2150 Balance 650 / 1700 1500 / 1700 Intake: IV 1000 / 1000 Lactated Ringer's 1,000 ml @ 50 1000 / 1000 mls/hr IV .Q20H ONE Rx#: [id number] Oral 650 / 1150 500 / 1150 Other: Other Intake Source npo Weight 101.3 kg Weight Measurement Method Built in [facility]
[2024-02-04] MEDS: DOBUTamine HCL 12.5 MG/ML 20 ML VIAL IV ONE (10:22)
[2024-02-04] MEDS: METOPROLOL TARTRATE 1 MG/ML VIAL IV ONE (10:23)
--- NOTE | 2024-02-04 12:53 | Hospitalist Progress Note ---
Date of Service February 04, 2024 Assessment & Plan (1) Chest pain: Plan: Left upper extremity arm pain radiating to chest ? Musculoskeletal Vs Neuropathy R/O ACS H/O CAD S/P stent H/O PVD --CXR:No acute chest disease. --Left UE USD:Normal left upper extremity duplex venous ultrasound. --Left Humerus X ray:No acute osseous injury. --Troponin negative x 2 -- EKG showed no signs of acute ischemia --Dobutamine stress echo was negative for ischemia --Continue aspirin, Plavix, Crestor, metoprolol Appreciate cardiology input Will obtain cervical CT to rule out any other cause for left arm pain Continue home gabapentin Advised to follow-up with orthopedics/neurology for further evaluation if pain persists on discharge Hypertension Continue amlodipine, metoprolol Losartan, torsemide currently on hold Monitor Hyperlipidemia on statin CKD III Baseline Cr ~1.4 (noted on outpatient records Sep 2023) Cr 1.5 today Monitor renal function Avoid nephrotoxic agents as able Follows with [facility] nephrology as outpatient Prediabetes Last HbA1c 5.7 GERD Continue pantoprazole DVT Px: Heparin SQ CODE STATUS Full code Disposition Home Admission and Anticipated Discharge Date Admission Date: February 03, 2024 Subjective Patient is seen and examined at bedside Patient had stress test earlier today Left arm pain intermittent Discussed with patient's family at bedside Denies any dyspnea, dizziness, nausea, vomiting, abdominal pain Discussed with cardiology today Review of Systems Review of Systems: All systems reviewed & are unremarkable except as noted in Subjective Physical Exam Physical Exam: Physical Exam: Vitals signs as noted above General Appearance:Moderately built and nourished, no apparent distress Head: normocephalic, Atraumatic Eyes: normal inspection, EOMI Neck: supple, Trachea midline Respiratory/Chest: Normal breath sounds, CTA, No accessory muscle use Cardiovascular: S1, S2, No murmur Abdomen/GI:Soft, Non tender, Bowel sounds present Extremities/Musculoskeletal:normal inspection, no edema Neurologic/Psych:AAOX3, grossly no focal neurological deficits Skin: normal color, warm Results & Data Results & Data Vital Signs (Past 12 Hours) Vital Signs Temp Pulse Resp BP BP Pulse Ox O2 Del Method 02/04/24 12:09 36.3 C L 67 18 105/67 94 Room Air 02/04/24 08:00 36.7 C 57 L 18 150/80 H 94 Room Air 02/04/24 03:03 36.8 C 65 20 158/83 H 96 Room Air Laboratory Results Short CBC 02/04/24 Range/Units 05:48 WBC 8.70 (4.8-10.8) K/ul Hgb 13.3 L (14.0-18.0) g/dl Hct 39.0 L (42.0-52.0) % Plt Count 203 (130-400) K/uL BMP 02/04/24 05:48 Sodium 134 L Potassium 4.0 Chloride 102 Carbon Dioxide 25 BUN 25 H Creatinine 1.45 H Glucose 110 H Calcium 9.2
[2024-02-04] MEDS: predniSONE 10 MG TABLET PO SCH (13:08)
--- NOTE | 2024-02-04 13:12 | CT Scan Report ---
CT SCAN OF THE CERVICAL SPINE CLINICAL HISTORY: Neck stiffness. Arm pain. COMPARISON STUDY: CT angiogram of the neck dated 08/30/2021. TECHNIQUE: CT scan of the cervical spine is performed from the skull base to the upper thoracic spine . Images are reviewed in the axial, sagittal, and coronal planes. IV contrast was not administered fo r this examination. A dose lowering technique was utilized adhering to the principles of ALARA. FINDINGS: Skeletal structures: The skeletal structures are osteopenic. There is no evidence of fracture or subl uxation involving the cervical spine. Vertebral body height is maintained. There is minimal anterolis thesis at C4-C5. Alignment is otherwise preserved. There is straightening of the cervical lordosis. A nterior osteophytes are seen throughout. The odontoid process and lateral masses are intact. The atla ntoaxial articulation is preserved noting productive degenerative change. The spinous processes appea r intact. There is moderate multilevel cervical spondylosis. Uncovertebral and facet arthropathy cont ribute to neural foraminal narrowing at several levels. This is moderate to severe on the right at C4 -C5 and bilaterally at C6-C7. Intervertebral discs: There is moderate to severe disc space narrowing at C6-C7 with associated endpl ate sclerosis. Mlji-da-vjchqxof disc space narrowing is noted at the remaining cervical levels. Central canal: A posterior disc osteophyte complex at C6-C7 likely contributes to acquired compromise of the central canal. Soft tissues: The prevertebral and paraspinous soft tissues are within normal limits. There is athero sclerotic calcification of the carotid bulbs. Calvarium: The visualized calvarium at the skull base appears intact. Brain parenchyma: Partially visualized brain parenchyma at the skull base is within normal limits. Sinuses and mastoids: The visualized paranasal sinuses are clear. The mastoid air cells are well pneu matized. Lung apices: Clear as visualized. IMPRESSION: 1. No acute bony abnormality is seen involving the cervical spine. 2. Osteopenia and spondylotic change as above. ACT 112: Negative or not required by law. Electronically signed by: Heriberto Salinas M.D. 02/04/2024 1:10 PM
--- NOTE | 2024-02-04 13:40 | Discharge Summary ---
Date of Service February 04, 2024 Admission HPI Per Admitting Provider History obtained from patient, family, and records. Medical history significant for CAD status post stent, valvular heart disease (mild AR/TR, TTE 2023), PVD, hypertension, hyperlipidemia, CRI (baseline creatinine 1.3-1.4), prediabetes, GERD. Last confinement June 2023 for infected laceration left thumb status post surgery. Postop anemia of 10 back to normal on outpatient blood draw September 2023. Patient complained of single chest pain episode and dyspnea on exertion during [facility] [place] visit last May 2023. Outpatient exercise stress echo last week. Stress test negative as per report. No evidence of ischemia (blockage) Examination is inadequate to evaluate the referral indication. Consider pharmacologic nuclear stress testing. No evidence of exercise-induced ischemia at 66% of the maximal, age predicted heart rate. The low heart rate response to stress reduces the sensitivity of this test for the detection of coronary artery disease or ischemia. There was attenuated heart rate response to exercise likely related to medication(s). Yesterday morning, patient roused from sleep by left upper extremity pain inner aspect with some radiation to the neck. Not worse with motion. No recollection of recent trauma although patient is a side sleeper. Tolerable discomfort with gabapentin and Tylenol Rx. Worsening discomfort later noted last night with radiation to the chest. No shortness of breath. No unusual cough symptoms. Compliant with home medications. Different from usual anginal attack as per patient. Denies abdominal pain/black/bloody stools/hematuria. Patient brought to ER for evaluation by . 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 Admission Exam Per Admitting Provider GENERAL: Pleasant, obese, no respiratory distress SKIN: Pallor, warm HEENT: Pale palpebral conjunctivae, no ptosis, dry buccal mucosa NECK : Supple, short neck, no tenderness CHEST : CTA, no tenderness HEART : Bradycardic, no obvious murmurs ABDOMEN: Some distention, nontender RECTAL : Intact sphincter, brown stool (FOBT negative) EXTREMITIES : No LE swelling/tenderness, negative UE tenderness, no other conspicuous deformities noted NEUROLOGIC : Coherent, no facial asymmetry, no other gross focality Principal Diagnosis Left upper extremity arm pain Negative dobutamine stress test Discharge Data Allergies Allergy/AdvReac Type Severity Reaction Status Date / Time tetracycline Allergy Mild RASH Verified 05/21/22 20:34 codeine Allergy Unknown Unknown Verified 05/21/22 20:34 shrimp AdvReac Mild NECK Verified 05/21/22 20:34 SWELLS IF HE EATS ALOT OF THEM enalapril AdvReac Cough Verified 05/21/22 20:34 Consultations 02/03/24 05:23 ED Decision to Admit Stat 02/03/24 09:08 Consult Cardiology Routine Procedures Performed Laboratory Results WBC 8.70 K/ul (4.8-10.8) 02/04/24 05:48 RBC 4.41 M/uL (4.70-6.10) L 02/04/24 05:48 Hgb 13.3 g/dl (14.0-18.0) L 02/04/24 05:48 Hct 39.0 % (42.0-52.0) L 02/04/24 05:48 MCV 88.4 fL (80.0-100.0) 02/04/24 05:48 MCH 30.2 pg (25.0-34.0) 02/04/24 05:48 MCHC 34.1 g/dL (32.0-36.0) 02/04/24 05:48 RDW Std Deviation 42.4 fL (36.4-46.3) 02/04/24 05:48 RDW Coeff of Mary 13.0 % (11.5-14.5) 02/04/24 05:48 Plt Count 203 K/uL (130-400) 02/04/24 05:48 MPV 11.5 fL (9.4-12.4) 02/04/24 05:48 Immature Gran % (Auto) 0.3 % 02/04/24 05:48 Neut % (Auto) 65.3 % 02/04/24 05:48 Lymph % (Auto) 16.7 % 02/04/24 05:48 [place] % (Auto) 12.2 % 02/04/24 05:48 Eos % (Auto) 4.7 % 02/04/24 05:48 Baso % (Auto) 0.8 % 02/04/24 05:48 Reticulocyte % (Auto) 1.94 % (0.50-2.00) 02/03/24 06:18 Neut # (Auto) 5.68 K/uL (1.40-6.50) 02/04/24 05:48 Lymph # (Auto) 1.45 K/uL (1.20-3.40) 02/04/24 05:48 [place] # (Auto) 1.06 K/uL (0.11-0.59) H 02/04/24 05:48 Eos # (Auto) 0.41 K/uL (0.00-0.50) 02/04/24 05:48 Baso # (Auto) 0.07 K/uL (0.00-0.20) 02/04/24 05:48 Reticulocyte # 0.080 10^6/uL (0.020-0.100) 02/03/24 06:18 Immature Gran # (Auto) 0.03 K/uL (0.01-0.20) 02/04/24 05:48 APTT 26 Seconds (21-31) 02/03/24 05:57 PTT Ratio 1.0 02/03/24 05:57 Sodium 134 mmol/L (136-145) L 02/04/24 05:48 Potassium 4.0 mmol/L (3.5-5.1) 02/04/24 05:48 Chloride 102 mmol/L (98-107) 02/04/24 05:48 Carbon Dioxide 25 mmol/L (21-32) 02/04/24 05:48 Anion Gap 7 (3-11) 02/04/24 05:48 BUN 25 mg/dl (6-23) H 02/04/24 05:48 Creatinine 1.45 mg/dl (0.6-1.4) H 02/04/24 05:48 Est Cr Clr Drug Dosing 56.5 ml/min 02/04/24 05:48 Est GFR ( Amer) 56.1 ml/min 02/04/24 05:48 Est GFR (Non-Af Amer) 48.4 ml/min 02/04/24 05:48 BUN/Creatinine Ratio 17.2 (10-20) 02/04/24 05:48 Glucose 110 mg/dl (70-99(Fasting)) H 02/04/24 05:48 Calcium 9.2 mg/dl (8.6-10.3) 02/04/24 05:48 Magnesium 1.8 mg/dl (1.7-2.4) 02/03/24 03:46 Iron 46 mcg/dl (35-175) 02/03/24 05:57 Transferrin 267 mg/dl (200-360) 02/03/24 05:57 Ferritin 72.0 ng/ml (8-388) 02/03/24 05:57 Total Bilirubin 0.3 mg/dl (0.2-1.0) 02/03/24 00:34 AST 20 U/L (13-39) 02/03/24 00:34 ALT 21 U/L (7-52) 02/03/24 00:34 Alkaline Phosphatase 46 U/L (34-104) 02/03/24 00:34 Troponin I High Sens 4.0 pg/ml (0-20) 02/03/24 05:57 Total Protein 6.9 gm/dl (6.0-8.3) 02/03/24 00:34 Albumin 4.3 gm/dl (3.4-5.0) 02/03/24 00:34 Globulin 2.6 gm/dl (2.5-4.0) 02/03/24 00:34 Albumin/Globulin Ratio 1.7 (0.9-2) 02/03/24 00:34 Lipase 42 U/L (11-82) 02/03/24 00:34 Vitamin B12 410 pg/ml (180-914) 02/03/24 05:57 Folate > 22.30 ng/ml (>5.38) 02/03/24 05:57 TSH 1.153 uIu/ml (0.300-4.500) 02/03/24 03:46 Urine Color Yellow 02/03/24 Unknown Urine Appearance Clear (Clear) 02/03/24 Unknown Urine pH 5.5 (4.5-7.5) 02/03/24 Unknown Ur Specific [place] 1.020 (1.000-1.030) 02/03/24 Unknown Urine Protein Negative (Negative) 02/03/24 Unknown Urine Glucose (UA) Negative (Negative) 02/03/24 Unknown Urine Ketones Negative (Negative) 02/03/24 Unknown Urine Blood Negative (Negative) 02/03/24 Unknown Urine Nitrite Negative (Negative) 02/03/24 Unknown Urine Bilirubin Negative (Negative) 02/03/24 Unknown Urine Urobilinogen Negative (Negative) 02/03/24 Unknown Ur Leukocyte Esterase Negative (Negative) 02/03/24 Unknown Blood Type B Positive 02/03/24 11:47 Antibody Screen NEGATIVE 02/03/24 11:47 Impressions Chest X-Ray 02/03/24 00:23 XR chest 1V portable CLINICAL HISTORY: Chest pain, nonspecific TECHNIQUE: Single frontal radiograph of the chest was obtained. Comparison: Comparison is made to chest radiograph 06/24/2023 FINDINGS: No lines and tubes are seen. The cardiomediastinal silhouette is normal. The lungs are clear. No evidence of pleural effusion or pneumothorax. IMPRESSION: No acute chest disease. ACT 112: Negative or not required by law. Electronically signed by: Roc Metcalf M.D. 02/03/2024 7:09 AM Extremity Venous Study 02/03/24 00:58 Exam(s): US VENOUS LEFT UPPER EXTREMITY EXAM: US Duplex Left Upper Extremity Veins CLINICAL HISTORY: Reason for exam: Rule out DVT. TECHNIQUE: Real-time duplex ultrasound scan of the left upper extremity veins integrating B-mode two-dimensional vascular structure, Doppler spectral analysis, color flow Doppler imaging and compression. COMPARISON: No relevant prior studies available. FINDINGS: Deep veins: Unremarkable. No DVT in the internal jugular, subclavian, axillary, or brachial veins. The veins demonstrate normal color flow, are normally compressible, with normal phasic flow and/or augmentation response. Superficial veins: Unremarkable. No thrombus in the visualized basilic and cephalic veins. Soft tissues: No acute findings. IMPRESSION: Normal left upper extremity duplex venous ultrasound. Electronically signed by: Gera Ferrera MD 02/03/24 05:11 AM Humerus X-Ray 02/03/24 04:17 XR humerus LT 2V CLINICAL HISTORY: pain TECHNIQUE: 2 radiographic views of the left humerus were obtained. Comparison: None available at the time of this dictation. FINDINGS: There is no evidence for fracture, subluxation or dislocation. The visualized portion of the shoulder and elbow joints are unremarkable. The overlying soft tissues are unremarkable. IMPRESSION: No acute osseous injury. ACT 112: Negative or not required by law. Electronically signed by: Roc Metcalf M.D. 02/03/2024 7:[address] 02/04/24 11:21 CT SCAN OF THE CERVICAL SPINE CLINICAL HISTORY: Neck stiffness. Arm pain. COMPARISON STUDY: CT angiogram of the neck dated 08/30/2021. TECHNIQUE: CT scan of the cervical spine is performed from the skull base to the upper thoracic spine. Images are reviewed in the axial, sagittal, and coronal planes. IV contrast was not administered for this examination. A dose lowering technique was utilized adhering to the principles of ALARA. FINDINGS: Skeletal structures: The skeletal structures are osteopenic. There is no evidence of fracture or subluxation involving the cervical spine. Vertebral body height is maintained. There is minimal anterolisthesis at C4-C5. Alignment is otherwise preserved. There is straightening of the cervical lordosis. Anterior osteophytes are seen throughout. The odontoid process and lateral masses are intact. The atlantoaxial articulation is preserved noting productive degenerative change. The spinous processes appear intact. There is moderate multilevel cervical spondylosis. Uncovertebral and facet arthropathy contribute to neural foraminal narrowing at several levels. This is moderate to severe on the right at C4-C5 and bilaterally at C6-C7. Intervertebral discs: There is moderate to severe disc space narrowing at C6-C7 with associated endplate sclerosis. Yjwn-mg-wkodylor disc space narrowing is noted at the remaining cervical levels. Central canal: A posterior disc osteophyte complex at C6-C7 likely contributes to acquired compromise of the central canal. Soft tissues: The prevertebral and paraspinous soft tissues are within normal limits. There is atherosclerotic calcification of the carotid bulbs. Calvarium: The visualized calvarium at the skull base appears intact. Brain parenchyma: Partially visualized brain parenchyma at the skull base is within normal limits. Sinuses and mastoids: The visualized paranasal sinuses are clear. The mastoid air cells are well pneumatized. Lung apices: Clear as visualized. IMPRESSION: 1. No acute bony abnormality is seen involving the cervical spine. 2. Osteopenia and spondylotic change as above. ACT 112: Negative or not required by law. Electronically signed by: Heriberto Salinas M.D. 02/04/2024 1:10 PM Ordered Studies 02/03/24 00:58 US venous doppler UE LT Stat 02/04/24 11:21 CT cervical spine wo con Urgent Hospital Course (1) Chest pain: Left upper extremity arm pain radiating to chest ? Musculoskeletal Vs Neuropathy R/O ACS H/O CAD S/P stent H/O PVD --CXR:No acute chest disease. --Left UE USD:Normal left upper extremity duplex venous ultrasound. --Left Humerus X ray:No acute osseous injury. --Troponin negative x 2 -- EKG showed no signs of acute ischemia --Dobutamine stress echo was negative for ischemia --Continue aspirin, Plavix, Crestor, metoprolol Appreciate cardiology input Will obtain cervical CT to rule out any other cause for left arm pain Continue home gabapentin Advised to follow-up with orthopedics/neurology for further evaluation if pain persists on discharge Hypertension Continue amlodipine, metoprolol Losartan, torsemide currently on hold Monitor Hyperlipidemia on statin CKD III Baseline Cr ~1.4 (noted on outpatient records Sep 2023) Cr 1.5 today Monitor renal function Avoid nephrotoxic agents as able Follows with [facility] nephrology as outpatient Prediabetes Last HbA1c 5.7 GERD Continue pantoprazole DVT Px: Heparin SQ CODE STATUS Full code Disposition Home Total Time Total Time Spent Total Time Spent (In Minutes): 66 minutes Discharge Plan Discharge Items Patient Disposition: Home - Self-Care Reason For Visit: CP Discharge Diagnosis: Left upper extremity arm pain Negative dobutamine stress test Activity: Per Instructions section Exercise/Sports: Gradually increase as tolerated Non-emergency contact: Primary Care Provider Call non-emergency contact if: you have any medication questions, your symptoms worsen, your pain is concerning for you and you have a fever Follow-up/Referrals: Sabino Izaguirre MD [Primary Care Provider] - (Date & Time 02/10/2024 11:40 AM Provider Johnny Lancaster MD Department Family Medicine [facility] ) Diet: Heart Healthy Addtl Attending Provider Instructions: Follow-up with your primary care physician on 02/10/2024 11:40 AM Consider following with your orthopedic surgeon, neurology if needed for further evaluation of left arm pain if persistent -- Consider trial of prednisone course as prescribed for arm pain. Seek immediate medical attention if your symptoms reoccur or worsen Please take all medications as instructed on discharge list below. Please call if you have any questions or problems. You can reach a [facility] hospitalist on duty at [facility] 24 hours a day by calling [phone] Pending Studies at Discharge: No Stand-Alone Forms: My [facility], Smoking Cessation Medications and DC Order Prescriptions: New prednisone 10 mg Tablet 10 mg PO DAILY Qty: 5 0RF Continued clopidogrel 75 mg tablet 75 mg PO DAILY amlodipine 5 mg tablet 5 mg PO DAILY aspirin 81 mg Tablet,Delayed Release (Dr/Ec) 81 mg PO DAILY famotidine 20 mg tablet 20 mg PO DAILY torsemide 5 mg tablet 5 mg PO DAILY pantoprazole 40 mg tablet,delayed release (DR/EC) 40 mg PO DAILY hydrochlorothiazide 25 mg tablet 25 mg PO DAILY gabapentin 100 mg capsule 100 mg PO TID metoprolol succinate 25 mg tablet extended release 24 hr 25 mg PO BID Rx Instructions: 1tab in am and 0.5tab in pm albuterol sulfate 90 mcg/actuation HFA aerosol inhaler 2 puff INHALATION Q4H PRN (Reason: Shortness Of Breath Or Wheezing) losartan 100 mg tablet 100 mg PO DAILY rosuvastatin 40 mg tablet 40 mg PO HS Zyrtec 10 mg PO HS docusate sodium 100 mg 100 mg PO DAILY nitroglycerin 0.4 mg PO PRN (Reason: Chest Pain) Discharge Orders: Discharge Order (Routine); Ordered 02/04/24 Ordered By: Garett Alexis Admission Data Admit Date/Time: 02/03/24 05:39 Attending Provider: Garett Alexis Admit Provider: Sergio Buchanan Primary Care Provider: Sabino Izaguirre Other Providers: Sergio Buchanan; Marcy Duque; Isrrael Hanley; Chilo Alba; Angel Mcmanus; YarielKar keita; Delvin Lr; Brittanie Slaughter; Yany Marshall; Sera Tovar; Marcy Jarquin; Keyur Vu; Kevin Enrique; Heena Alexandre; Jaqui Robertson; Pennie Narnajo; Rafy Galeas; Inocencio Narvaez; Emperatriz Martin
--- NOTE | 2024-02-05 10:11 | Electrocardiogram Report ---
Test Reason : Blood Pressure : / mmHG Vent. Rate : 058 BPM Atrial Rate : 058 BPM P-R Int : 190 ms QRS Dur : 096 ms QT Int : 432 ms P-R-T Axes : 035 -16 012 degrees QTc Int : 424 ms Sinus bradycardia Minimal voltage criteria for LVH, may be normal variant Borderline ECG When compared with ECG of 03-FEB-2024 00:28, No significant change was found Confirmed by Deon Maldonado ([id number]) on 02/05/2024 10:11:09 AM Referred By: REFERRED SELF Confirmed By:Deon Maldonado
== END 2024-02-04 15:15 | disposition home or self-care (01) ==
LOC: ED 00:18 → 4W 00:18

== ENCOUNTER 2024-10-31 09:57 | Observation (INO) ==
--- NOTE | 2024-10-31 10:27 | Emergency Department Note ---
History of Present Illness General Chief complaint: Chest Pain Stated complaint: CHEST PAIN Time Seen by Provider: 10/31/24 10:04 Source: patient Mode of arrival: EMS Limitations: no limitations History of Present Illness Maximum Pain Intensity: 3 Patient is a 68-year-old male with history of CAD status post stent placement x 2, hypertension, hyperlipidemia who presents with chest pain that started about an hour and a half prior to arrival. Sudden onset just before breakfast. Describes pressure to the midsternal region associated with lightheadedness and diaphoresis. He called EMS at that time. He was given 324 mg of aspirin as well as 2 nitro sprays per EMS. Patient also took 2 sublingual nitro prior to EMS arrival. Currently symptoms are 3 out of 10. No radiation to the arms or jaw. Not exacerbated by position. No associated nausea or vomiting. Not an active smoker. No drug or alcohol use reported. Home Medications Medication Instructions Recorded Confirmed Type albuterol sulfate 90 mcg/actuation 2 puff inhalation Q4H PRN 06/18/23 10/31/24 History aerosol inhaler Shortness Of Breath Or Wheezing amlodipine 5 mg tablet 5 mg PO BID 06/18/23 10/31/24 History aspirin 81 mg tablet,delayed 81 mg PO DAILY 06/18/23 10/31/24 History release clopidogrel 75 mg tablet 75 mg PO DAILY 06/18/23 10/31/24 History famotidine 20 mg tablet 20 mg PO DAILY 06/18/23 10/31/24 History gabapentin 100 mg capsule 100 mg PO TID 06/18/23 10/31/24 History hydrochlorothiazide 25 mg tablet 25 mg PO DAILY 06/18/23 10/31/24 History losartan 100 mg tablet 100 mg PO DAILY 06/18/23 10/31/24 History metoprolol succinate 25 mg 25 mg PO BID 06/18/23 10/31/24 History tablet,extended release 24 hr pantoprazole 40 mg tablet,delayed 40 mg PO DAILY 06/18/23 10/31/24 History release rosuvastatin 40 mg tablet 40 mg PO HS 06/18/23 10/31/24 History torsemide 5 mg tablet 5 mg PO DAILY 06/18/23 10/31/24 History cetirizine 10 mg tablet (Zyrtec) 10 mg PO HS ##0 02/03/24 10/31/24 History docusate sodium 100 mg capsule 100 mg PO DAILY ##0 02/03/24 10/31/24 History nitroglycerin 0.4 mg sublingual 0.4 mg PO UD PRN Chest Pain ##0 02/03/24 10/31/24 History tablet acetaminophen 500 mg tablet 500 mg PO Q6H PRN Pain 10/31/24 10/31/24 History ascorbic acid (vitamin C) 500 mg 500 mg PO DAILY 10/31/24 10/31/24 History tablet (Vitamin C) multivitamin 1 tab PO DAILY 10/31/24 10/31/24 History oseltamivir 30 mg capsule 30 mg PO BID 10/31/24 10/31/24 History prednisone 5 mg tablet 5 mg PO DAILY 10/31/24 10/31/24 History vitamin E 268 mg (400 unit) capsule 268 mg PO DAILY 10/31/24 10/31/24 History Allergies Allergy/AdvReac Type Severity Reaction Status Date / Time tetracycline Allergy Mild RASH Verified 10/31/24 14:23 codeine Allergy Unknown Unknown Verified 10/31/24 14:23 shrimp AdvReac Mild NECK Verified 10/31/24 14:23 SWELLS IF HE EATS ALOT OF THEM enalapril AdvReac Cough Verified 10/31/24 14:23 Past Med/Surg History Problem List (Updated 10/31/24 @ 15:43 by Christiano Puga MD) Chest pain (Acute) Arm pain (Acute) Chest pain Encounter for pre-operative examination Anemia Flexor tenosynovitis of thumb (Acute) Laceration of left thumb with infection Abdominal pain (Acute) Leukocytosis (Acute) Fever (Acute) Elevated procalcitonin (Acute) MONIK (acute kidney injury) E coli infection Sepsis Leukocytosis HTN (hypertension) CAD S/P percutaneous coronary angioplasty Medical History Hyperlipidemia Hypertension Coronary artery disease Surgical History History of coronary artery stent placement Family History Other Family history non-contributory Social History Smoking Status: Never smoker Second Hand Exposure: No; Do You Dip or Chew Tobacco: No; Hx Alcohol Use: No Hx Substance Use: No Preferred Language: Czech Communication Ability: Effective Reimbursement Auditor Required: No Beliefs That Will Affect Care: None Current Living Situation: Spouse Current Living Situation Comment: spouse and niece Feels Safe at Home: Yes Assistive Devices: None Review of Systems See HPI for pertinent positives & negatives. Physical Exam Vital Signs Vital Signs - 24 hr 10/31/24 10:10 10/31/24 10:10 10/31/24 10:25 Temperature 36.8 C Temperature Source Oral Pulse Rate 53 L 55 L Pulse Rate from SpO2 Sensor Pulse Rhythm Regular Pulse Strength Normal Respiratory Rate 20 Respiratory Effort / Characteristics Non-Labored Spontaneous Respiratory Depth Normal Blood Pressure 118/67 Blood Pressure Mean 84 Blood Pressure Position Sitting Pulse Oximetry 94 Oxygen Delivery Method Room Air Room Air Sepsis Recent Fever Within 48 Hours No Sepsis New/Unexplained Change in Mental Status No Sepsis Action Taken by Nursing No Action Required 10/31/24 10:30 10/31/24 10:38 10/31/24 11:00 Temperature Temperature Source Pulse Rate 52 L 56 L Pulse Rate from SpO2 Sensor 52 L Pulse Rhythm Pulse Strength Respiratory Rate 17 18 Respiratory Effort / Characteristics Respiratory Depth Blood Pressure 130/75 140/84 Blood Pressure Mean 98 102 Blood Pressure Position Pulse Oximetry 95 94 97 Oxygen Delivery Method Room Air Sepsis Recent Fever Within 48 Hours Sepsis New/Unexplained Change in Mental Status Sepsis Action Taken by Nursing 10/31/24 11:30 10/31/24 12:30 10/31/24 13:00 Temperature Temperature Source Pulse Rate 58 L 64 54 L Pulse Rate from SpO2 Sensor 55 L Pulse Rhythm Pulse Strength Respiratory Rate 21 18 19 Respiratory Effort / Characteristics Respiratory Depth Blood Pressure 134/73 128/77 Blood Pressure Mean 102 92 Blood Pressure Position Pulse Oximetry 97 97 98 Oxygen Delivery Method Sepsis Recent Fever Within 48 Hours Sepsis New/Unexplained Change in Mental Status Sepsis Action Taken by Nursing 10/31/24 13:30 10/31/24 14:20 Temperature Temperature Source Pulse Rate 61 58 L Pulse Rate from SpO2 Sensor Pulse Rhythm Pulse Strength Respiratory Rate 16 Respiratory Effort / Characteristics Respiratory Depth Blood Pressure 150/81 H Blood Pressure Mean 101 Blood Pressure Position Pulse Oximetry 95 Oxygen Delivery Method Sepsis Recent Fever Within 48 Hours Sepsis New/Unexplained Change in Mental Status Sepsis Action Taken by Nursing See below Constitutional WD/WN, vitals as above Respiratory normal respiratory effort, lungs clear to auscultation Cardiovascular RRR, no murmur, no edema Vessels: normal peripheral pulses; no JVD Extremities: normal capillary refill; no calf tenderness and no pedal edema Musculoskeletal no cyanosis or clubbing, extremities motor strength 5/5 Skin no rashes, warm and dry Course Administered Medications Discontinued Medications Potassium Chloride (Potassium Chloride Crtab 20 Meq Tabcr) 40 meq PO NOW STA Stop: 10/31/24 11:18 Last Admin: 10/31/24 11:21 Dose: 40 meq Documented By: RANDALL Medical Decision Making Differential Diagnosis ACS, PE, pneumonia, aortic abnormality, costochondritis, GERD Medical Records Attestation: I reviewed the patient's medical records. Home Medications Current Medication List: was personally reviewed by me Laboratory Data Attestation: I reviewed the patient's lab results. 10/31/24 10:17 10/31/24 10:17 Lab Results 10/31/24 10/31/24 Range/Units 10:17 14:05 WBC 9.34 (4.8-10.8) K/ul RBC 4.77 (4.70-6.10) M/uL Hgb 13.9 L (14.0-18.0) g/dl Hct 40.8 L (42.0-52.0) % MCV 85.5 (80.0-100.0) fL MCH 29.1 (25.0-34.0) pg MCHC 34.1 (32.0-36.0) g/dL RDW Std Deviation 41.9 (36.4-46.3) fL RDW Coeff of Mary 13.4 (11.5-14.5) % Plt Count 194 (130-400) K/uL MPV 11.0 (9.4-12.4) fL Immature Gran % (Auto) 0.5 % Neut % (Auto) 64.9 % Lymph % (Auto) 22.5 % [place] % (Auto) 10.3 % Eos % (Auto) 1.5 % Baso % (Auto) 0.3 % Neut # (Auto) 6.06 (1.40-6.50) K/uL Lymph # (Auto) 2.10 (1.20-3.40) K/uL [place] # (Auto) 0.96 H (0.11-0.59) K/uL Eos # (Auto) 0.14 (0.00-0.50) K/uL Baso # (Auto) 0.03 (0.00-0.20) K/uL Immature Gran # (Auto) 0.05 (0.01-0.20) K/uL D-Dimer 250 (0-500) ug/L FEU Sodium 138 (136-145) mmol/L Potassium 3.0 L (3.5-5.1) mmol/L Chloride 99 (98-107) mmol/L Carbon Dioxide 28 (21-32) mmol/L Anion Gap 11 (3-11) BUN 34 H (6-23) mg/dl Creatinine 1.31 (0.6-1.4) mg/dl Est Cr Clr Drug Dosing 61.1 ml/min eGFR 58.56 BUN/Creatinine Ratio 26.0 H (10-20) Glucose 100 H (70-99(Fasting)) mg/dl Calcium 8.9 (8.6-10.3) mg/dl Total Bilirubin 0.7 (0.2-1.0) mg/dl AST 18 (13-39) U/L ALT 28 (7-52) U/L Alkaline Phosphatase 47 (34-104) U/L Troponin I High Sens 5.3 4.9 (0-20) pg/ml Total Protein 6.8 (6.0-8.3) gm/dl Albumin 4.0 (3.4-5.0) gm/dl Globulin 2.8 (2.5-4.0) gm/dl Albumin/Globulin Ratio 1.4 (0.9-2) Lipase 30 (11-82) U/L Imaging Data Attestation: I personally reviewed and interpreted this imaging study as follows: My Impression: No acute cardiopulmonary process noted. Radiologist's Impression: Chest X-Ray 10/31/24 10:38 XR chest 1V portable HISTORY: 68 years-old Male Chest pain, nonspecific COMPARISON: 02/03/2024 TECHNIQUE: AP view of the chest FINDINGS: Cardiac silhouette is enlarged. No pneumothorax, pleural effusion, airspace consolidation or overt pulmonary edema. Mild linear bibasilar atelectasis versus scarring. Chronic left-sided rib fractures. Prior resection of the distal left clavicle. IMPRESSION: No acute process. ACT 112: Negative or not required by law. The above report was generated using voice recognition software. It may contain grammatical, syntax or spelling errors. Electronically signed by: Munir Bello M.D. 10/31/2024 10:58 AM ECG Data Attestation: I personally reviewed and interpreted this ECG as follows: Indication: + chest pain Rate (beats per minute): 55 Rhythm: + normal sinus ECG Intervals/blocks: + Normal QRS, + Normal QT and + Normal ME ECG [place]: + Normal ECG ST segments: + Normal ST segments Comparison ECG Date: from (02/03/2024) Change: no significant change Blood Pressure Blood Pressure Findings: Elevated blood pressure Blood Pressure Disposition: elevated BP felt to be situational MDM Narrative Patient is a 68-year-old male who presents with an episode of chest pain that occurred just prior to arrival. Symptoms are improved here in the ED after nitroglycerin and aspirin given. EKG nonconcerning here today. Serial troponins are negative. Moderate risk for Mace per heart score of 5. 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 Chest pain return precautions discussed. Low risk for PE or aortic abnormality due to low risk profile and negative D-dimer. Plan to discharge home with chest pain return precautions given. Potassium of 3.0 here in the ED. This was repleted. Can follow-up with his primary care physician for management of high blood pressure and recheck of his potassium levels. Impression & Plan Chest pain Discharge home with follow-up. Discharge Plan Visit Data Chief Complaint: Chest Pain Stated Complaint: CHEST PAIN ED Provider: Christiano Puga Discharge Problem: Chest pain Forms Stand Alone Forms: My [facility] Booked Prescriptions Prescriptions: No Action clopidogrel 75 mg tablet 75 mg PO DAILY Rx Instructions: Last filled 06/2024 x90 day supply amlodipine 5 mg tablet 5 mg PO BID aspirin 81 mg Tablet,Delayed Release (Dr/Ec) 81 mg PO DAILY famotidine 20 mg tablet 20 mg PO DAILY Rx Instructions: Last filled 06/2024 x90 day supply torsemide 5 mg tablet 5 mg PO DAILY pantoprazole 40 mg tablet,delayed release (DR/EC) 40 mg PO DAILY hydrochlorothiazide 25 mg tablet 25 mg PO DAILY gabapentin 100 mg capsule 100 mg PO TID Rx Instructions: Last filled 06/2024 x90 day supply metoprolol succinate 25 mg tablet extended release 24 hr 25 mg PO BID Rx Instructions: 1tab in am and 0.5tab in pm albuterol sulfate 90 mcg/actuation HFA aerosol inhaler 2 puff INHALATION Q4H PRN (Reason: Shortness Of Breath Or Wheezing) losartan 100 mg tablet 100 mg PO DAILY rosuvastatin 40 mg tablet 40 mg PO HS cetirizine [Zyrtec] 10 mg Tablet 10 mg PO HS Qty: 0 nitroglycerin 0.4 mg Tablet, Sublingual 0.4 mg PO UD PRN (Reason: Chest Pain) Qty: 0 docusate sodium 100 mg Capsule 100 mg PO DAILY Qty: 0 prednisone 5 mg tablet 5 mg PO DAILY multivitamin Tablet 1 tab PO DAILY acetaminophen [Tylenol Ex Str Rapid Release] 500 mg Tablet 500 mg PO Q6H PRN (Reason: Pain) ascorbic acid (vitamin C) [Vitamin C] 500 mg Tablet 500 mg PO DAILY vitamin E 268 mg (400 unit) Capsule 268 mg PO DAILY oseltamivir 30 mg capsule 30 mg PO BID Rx Instructions: Start Date 10/26/24 x5 day supply. Per patient today (10/31/24) is his last day taking this medication Referrals Referrals: Sabino Izaguirre MD [Primary Care Provider] -
[2024-10-31 10:53] LABS: Basophils # (auto) 0.03 K/uL (0.00-0.20); Basophils % (auto) 0.3 %; Eosinophils # (auto) 0.14 K/uL (0.00-0.50); Eosinophils % (auto) 1.5 %; Hematocrit (blood only) 40.8 % (42.0-52.0); Hemoglobin 13.9 g/dl (14.0-18.0); Immature Granulocytes # (auto) 0.05 K/uL (0.01-0.20); Immature Granulocytes % (auto) 0.5 %; Lymphocytes % (auto) 22.5 %; Mean Corpuscular Hemoglobin 29.1 pg (25.0-34.0); Mean Corpuscular Hgb Conc 34.1 g/dL (32.0-36.0); Mean Corpuscular Volume 85.5 fL (80.0-100.0); Monocytes # (auto) 0.96 K/uL (0.11-0.59); Monocytes % (auto) 10.3 %; Neutrophils # (auto) 6.06 K/uL (1.40-6.50); Neutrophils % (auto) 64.9 %; Platelet Count 194 K/uL (130-400); RDW Coefficient of Variation 13.4 % (11.5-14.5); RDW Standard Deviation 41.9 fL (36.4-46.3); Red Blood Count 4.77 M/uL (4.70-6.10); White Blood Count 9.34 K/ul (4.8-10.8)
--- NOTE | 2024-10-31 11:01 | XRay Report ---
XR chest 1V portable HISTORY: 68 years-old Male Chest pain, nonspecific COMPARISON: 02/03/2024 TECHNIQUE: AP view of the chest FINDINGS: Cardiac silhouette is enlarged. No pneumothorax, pleural effusion, airspace consolidation or overt pu lmonary edema. Mild linear bibasilar atelectasis versus scarring. Chronic left-sided rib fractures. P rior resection of the distal left clavicle. IMPRESSION: No acute process. ACT 112: Negative or not required by law. The above report was generated using voice recognition software. It may contain grammatical, syntax o r spelling errors. Electronically signed by: Munir Bello M.D. 10/31/2024 10:58 AM
[2024-10-31 11:15] LABS: Albumin Globulin Ratio 1.4 (0.9-2); Bilirubin,Total 0.7 mg/dl (0.2-1.0); Calcium 8.9 mg/dl (8.6-10.3); Creatinine Clr Calc Pharmacy 61.1 ml/min; Globulin 2.8 gm/dl (2.5-4.0); Total Protein 6.8 gm/dl (6.0-8.3)
[2024-10-31 11:18] LABS: D Dimer 250 ug/L FEU (0-500); Troponin I High Sensitivity 5.3 pg/ml (0-20)
[2024-10-31] MEDS: POTASSIUM CHLORIDE CRTAB 20 MEQ TABCR PO STA ×2 (11:21→16:54)
[2024-10-31] MEDS: ACETAMINOPHEN 325 MG TAB PO STA (15:54)
--- NOTE | 2024-10-31 16:18 | History & Physical Report ---
Date of Service October 31, 2024 Assessment & Plan (1) Chest pain: Plan: Enzo Shaw is a 68y/o M with PMHx significant for HLD, HTN, CAD s/p PCI with SERENITY to left circumflex in 2004 and PCI with SERENITY to LAD in 2012, dilatation of proximal ascending thoracic aorta, GERD, CKD stage IIIa, polymyalgia rheumatica rheumatica on chronic prednisone therapy, chronic right shoulder pain, cervical DDD and chronic neck pain who presented to the ED via EMS for evaluation of midsternal chest pain. Patient with acute onset of midsternal chest pain and pressure which began this morning prior to eating breakfast. Notable diaphoresis and lightheadedness with this chest pain to the point where he felt like he was going to pass out. Notes chest pain is resolved in ED s/p 2 sublingual nitroglycerin, 2 nitroglycerin sprays and 324mg ASA en route to ED via EMS. EKG unremarkable in ED. High-sensitivity troponin x 2 negative so far. Continue to trend high-sensitivity troponin Q4H. Telemetry monitoring. EKG with chest pain PRN. EKG daily x 2. Obtain resting echocardiogram. Cardiology consult given prior stenting + significant cardiac family history. (2) Coronary artery disease: Plan: Patient had PCI with SERENITY to left circumflex in 2004 and PCI with SERENITY to LAD in 2012. Continue rosuvastatin 40mg QHS. Patient previously admitted back in January 2024 - underwent dobutamine stress echocardiogram which was negative for inducible ischemia. Continue DAPT. (3) Influenza: Plan: Diagnosed with influenza A about 5 days ago and is currently being treated with Tamiflu - with his last dose being this evening. Endorses a productive cough of yellowish sputum however this has been improving. No recorded fevers. Denies any SOB. Give last Tamiflu dose tonight. Continue to monitor respiratory status. Check respiratory Bio[employer] panel. (4) Hypokalemia: Plan: K+ 3.0 on admission. S/p 40mEq po KCl in ED. Will give an additional 40mEq po KCl. Continue to monitor K+ and replete PRN. (5) HTN (hypertension): Plan: Holding home HCTZ 25mg daily, amlodipine 5mg BID and torsemide 5mg daily for now due to softer BP. Continue losartan and metoprolol succinate with hold parameters. Monitor BP closely and resume home antihypertensives as able. (6) Polymyalgia rheumatica: Plan: Follows with Dr. Salas of [facility]. Currently on extended prednisone taper course as directed by rheumatology. Goal is to wean off of prednisone entirely in the future. Now on 5mg prednisone daily - continue. Can also continue home gabapentin 100mg TID. (7) CKD stage 3a, GFR 45-59 ml/min: Plan: Cr stable on admission. Baseline Cr around 1.3-1.4 per chart review. Continue to closely monitor renal function and avoid nephrotoxins as able. DVT Prophylaxis: SQ Heparin Code Status: FULL CODE PCP: Sabino Izaguirre MD Disposition: Observation in Med/Telemetry for further inpatient cardiac evaluation and management. Patient seen in collaboration with Dr. Chester. Please see addendum. I spent a total of 50 minutes coordinating, documenting, and providing care for this patient excluding time spent in the performance of separately billed services or time spent by another provider/QHP. This included personally reviewing all current laboratories and imaging studies, medical reconciliation, outpatient chart review and discussion with specialists. This chart was completed in part utilizing Speech Voice Recognition Software. Grammatical errors, random word insertions, pronoun errors, and incomplete sentences are an occasional consequence of this system due to software limitations, ambient noise, and hardware issues. Any formal questions or concerns about the content, text, or information contained within the body of this dictation should be directly addressed to the provider for clarification. History of Present Illness Chief Complaint: Chest Pain Primary Care Provider: Sabino Izaguirre MD Enzo Shaw is a 68y/o M with PMHx significant for HLD, HTN, CAD s/p PCI with SERENITY to left circumflex in 2004 and PCI with SERENITY to LAD in 2012, dilatation of proximal ascending thoracic aorta, GERD, CKD stage IIIa, polymyalgia rheumatica rheumatica on chronic prednisone therapy, chronic right shoulder pain, cervical DDD and chronic neck pain who presented to the ED via EMS for evaluation of midsternal chest pain. History obtained from the patient, family at bedside and associated chart review. Patient seen at bedside with Dr. Chester. Patient with acute onset of midsternal chest pain and pressure which began this morning prior to eating breakfast. Notable diaphoresis and lightheadedness with this chest pain to the point where he felt like he was going to pass out. Notes chest pain is currently resolved s/p 2 sublingual nitroglycerin, 2 nitroglycerin sprays and 324mg ASA en route to ED via EMS. Patient endorses significant family history of cardiac events. Notes his father of an SD at 57y/o and his mother had 2 or 3 MIs before passing away at age 76. Has 3 brothers. Oldest brother of an SD at age 78 - this brother had a prior SD in his late 50s as well. Notes his one other brother had to have a pacemaker placed in his 40s and the other one had an SD in his 50s. Patient had PCI with SERENITY to left circumflex in 2004 and PCI with SERENITY to LAD in 2012 per chart review. He reports being diagnosed with influenza A about 5 days ago and is currently being treated with Tamiflu - with his last dose being this evening. He endorses a productive cough of yellowish sputum however this has been improving. No recorded fevers. Denies any SOB. No further chest pain episodes in the ED. Patient with no prior history of SD. Follows with Dr. Hanley in the outpatient setting. Patient previously admitted back in January 2024. Underwent dobutamine stress echocardiogram which was negative for inducible ischemia. EKG unremarkable in ED. High-sensitivity troponin x 2 negative. Noted hypokalemia with K+ of 3 on admission but otherwise labs were grossly unremarkable. Allergies Allergy/AdvReac Type Severity Reaction Status Date / Time tetracycline Allergy Mild RASH Verified 10/31/24 14:23 codeine Allergy Unknown Unknown Verified 10/31/24 14:23 shrimp AdvReac Mild NECK Verified 10/31/24 14:23 SWELLS IF HE EATS ALOT OF THEM enalapril AdvReac Cough Verified 10/31/24 14:23 Home Medications Medication Instructions Recorded Confirmed Type albuterol sulfate 90 mcg/actuation 2 puff inhalation Q4H PRN 06/18/23 10/31/24 History aerosol inhaler Shortness Of Breath Or Wheezing amlodipine 5 mg tablet 5 mg PO BID 06/18/23 10/31/24 History aspirin 81 mg tablet,delayed 81 mg PO DAILY 06/18/23 10/31/24 History release clopidogrel 75 mg tablet 75 mg PO DAILY 06/18/23 10/31/24 History famotidine 20 mg tablet 20 mg PO DAILY 06/18/23 10/31/24 History gabapentin 100 mg capsule 100 mg PO TID 06/18/23 10/31/24 History hydrochlorothiazide 25 mg tablet 25 mg PO DAILY 06/18/23 10/31/24 History losartan 100 mg tablet 100 mg PO DAILY 06/18/23 10/31/24 History metoprolol succinate 25 mg 25 mg PO QAM 06/18/23 10/31/24 History tablet,extended release 24 hr pantoprazole 40 mg tablet,delayed 40 mg PO DAILY 06/18/23 10/31/24 History release rosuvastatin 40 mg tablet 40 mg PO HS 06/18/23 10/31/24 History torsemide 5 mg tablet 5 mg PO DAILY 06/18/23 10/31/24 History cetirizine 10 mg tablet (Zyrtec) 10 mg PO HS ##0 02/03/24 10/31/24 History docusate sodium 100 mg capsule 100 mg PO DAILY ##0 02/03/24 10/31/24 History nitroglycerin 0.4 mg sublingual 0.4 mg PO UD PRN Chest Pain ##0 02/03/24 10/31/24 History tablet acetaminophen 500 mg tablet 500 mg PO Q6H PRN Pain 10/31/24 10/31/24 History ascorbic acid (vitamin C) 500 mg 500 mg PO DAILY 10/31/24 10/31/24 History tablet (Vitamin C) metoprolol succinate 25 mg 12.5 mg PO HS 10/31/24 10/31/24 History tablet,extended release 24 hr (Toprol XL) multivitamin 1 tab PO DAILY 10/31/24 10/31/24 History oseltamivir 30 mg capsule 30 mg PO BID 10/31/24 10/31/24 History prednisone 5 mg tablet 5 mg PO DAILY 10/31/24 10/31/24 History vitamin E 268 mg (400 unit) capsule 268 mg PO DAILY 10/31/24 10/31/24 History guaifenesin 600 mg tablet, 600 mg PO BID #10 tabs 11/01/24 Rx extended release 12 hr prednisone 20 mg tablet 20 mg PO UD #8 tabs 11/01/24 Rx Past Med/Surg History Problem List Polymyalgia rheumatica CKD stage 3a, GFR 45-59 ml/min Hypokalemia Influenza Chest pain (Acute) Arm pain (Acute) Chest pain Encounter for pre-operative examination Anemia Flexor tenosynovitis of thumb (Acute) Laceration of left thumb with infection Abdominal pain (Acute) Leukocytosis (Acute) Fever (Acute) Elevated procalcitonin (Acute) MONIK (acute kidney injury) E coli infection Sepsis Leukocytosis HTN (hypertension) CAD S/P percutaneous coronary angioplasty Medical History Hyperlipidemia Hypertension Coronary artery disease Surgical History History of coronary artery stent placement Family History Other Family history non-contributory Social History Smoking Status: Never smoker Second Hand Exposure: No; Do You Dip or Chew Tobacco: No; Hx Alcohol Use: Yes Alcohol type: beer and wine Hx Substance Use: No Preferred Language: Lao Communication Ability: Effective 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 Physical Exam Physical Exam: Please refer to Dr. Chester's addendum for physical examination findings. Results & Data Results & Data Vital Signs (Past 12 Hours) Vital Signs Temp Pulse Resp BP Pulse Ox O2 Del Method 10/31/24 15:30 54 L 14 123/73 98 10/31/24 15:01 64 20 128/77 95 10/31/24 14:20 58 L 10/31/24 13:30 61 16 150/81 H 95 10/31/24 13:00 54 L 19 128/77 98 10/31/24 12:30 64 18 134/73 97 10/31/24 11:30 58 L 21 97 10/31/24 11:00 56 L 18 140/84 97 10/31/24 10:38 94 Room Air 10/31/24 10:30 52 L 17 130/75 95 10/31/24 10:25 55 L 10/31/24 10:10 Room Air 10/31/24 10:10 36.8 C 53 L 20 118/67 94 Room Air Laboratory Results Short CBC 10/31/24 Range/Units 10:17 WBC 9.34 (4.8-10.8) K/ul Hgb 13.9 L (14.0-18.0) g/dl Hct 40.8 L (42.0-52.0) % Plt Count 194 (130-400) K/uL BMP 10/31/24 10:17 Sodium 138 Potassium 3.0 L Chloride 99 Carbon Dioxide 28 BUN 34 H Creatinine 1.31 Glucose 100 H Calcium 8.9 Liver Function 10/31/24 Range/Units 10:17 Total Bilirubin 0.7 (0.2-1.0) mg/dl AST 18 (13-39) U/L ALT 28 (7-52) U/L Alkaline Phosphatase 47 (34-104) U/L Albumin 4.0 (3.4-5.0) gm/dl Diagnostic Findings Chest X-Ray 10/31/24 10:38 XR chest 1V portable HISTORY: 68 years-old Male Chest pain, nonspecific COMPARISON: 02/03/2024 TECHNIQUE: AP view of the chest FINDINGS: Cardiac silhouette is enlarged. No pneumothorax, pleural effusion, airspace consolidation or overt pulmonary edema. Mild linear bibasilar atelectasis versus scarring. Chronic left-sided rib fractures. Prior resection of the distal left clavicle. IMPRESSION: No acute process. ACT 112: Negative or not required by law. The above report was generated using voice recognition software. It may contain grammatical, syntax or spelling errors. Electronically signed by: Munir Bello M.D. 10/31/2024 10:58 AM Medications Administered Discontinued Medications Acetaminophen (Acetaminophen 325 Mg Tab) 650 mg PO NOW STA Stop: 10/31/24 15:45 Last Admin: 10/31/24 15:54 Dose: 650 mg Documented By: RANDALL Potassium Chloride (Potassium Chloride Crtab 20 Meq Tabcr) 40 meq PO NOW STA Stop: 10/31/24 11:18 Last Admin: 10/31/24 11:21 Dose: 40 meq Documented By: RANDALL Code Status & VTE Plan Code Status FULL CODE Supervising Physician Co-Signing Physician Notes 68 year-old male with significant family history of cardiac disease, personal history of CAD status post PCI with SERENITY to left circumflex in 2004 and PCI with SERENITY to LAD 2012 presented to the ED with complaint of acute chest pain in the morning, midsternal, associated with lightheadedness and diaphoresis, relieved with nitroglycerin [he used 2 sublingual nitro and 2 sprays]. Patient reports improvement in his chest pain by the time he presented to the ED. He reports having Influenza A 5-day ago, his last dose of Tamiflu is today evening, will continue. He reports cough about the same but improvement in his color of the sputum down to light yellow now. Patient denies any further chest pain while in the ED. Patient denies pain or burning with passing urine/diarrhea. Patient reports appetite okay. Patient has significant family history of cardiac disease in both parents and 3 brothers. Labs reviewed, CBC WNL, potassium 3.0, troponin x 2 negative, LFT WNL. CXR with no acute finding. EKG with no acute ST or T changes. Chest pain, rule out ACS: Given significant cardiac history in the family, trend troponin/get echo/cardiology consult/telemetry monitoring. EKG as needed with chest pain. On exam: GENERAL: Alert and oriented x3. NAD, on RA. HEENT: No pallor, no icterus. Pupils equal, round and reactive to light. Oral mucosa moist. NECK: No JVD, no neck masses. HEART: S1 and S2 heard. Regular rate and rhythm. No murmur, no gallop. RESPIRATORY SYSTEM: Normal AP diameter. No accessory muscle use. No wheezing, no crackles. ABDOMEN: Soft, bowel sounds present, nontender, no distention. CENTRAL NERVOUS SYSTEM: No facial droop. Speech is clear. Obeys simple commands. Moves extremities. EXTREMITIES: No edema, no erythema seen. I have seen and examined the patient and have discussed the case with the provider above. I agree with the assessment and plan as stated. Time spent: 30 min. (1) Chest pain Chest pain type: unspecified Qualified Code(s): R07.9 - Chest pain, unspecified (2) Coronary artery disease Associated angina: unspecified whether angina present Coronary Disease- Associated Artery/Lesion type: unspecified vessel or lesion type [place] vs. transplanted heart: [place] heart Qualified Code(s): I25.10 - Atherosclerotic heart disease of [place] coronary artery without angina pectoris (5) HTN (hypertension) Hypertension type: unspecified Qualified Code(s): I10 - Essential (primary) hypertension
[2024-10-31] MEDS: POTASSIUM CHLORIDE PWD 20 MEQ PACK PO STA (16:54)
--- OUTSIDE RECORDS SUMMARY | 2024-10-31 17:29 | External Medical Summary | Summary of Care ---
Author Name Unknown Organization [facility] Address [address] [place] [address] Phone [phone] Care Team Providers Care Bead Supervisor Name Role Phone Sabino Izaguirre MD Primary Care Provide r Reason for Visit * Reason Onset Date Comments Remote Patient Monitoring Alert 10/30/2024 Encounter Details Date Type Department Care Team (Late st Contact Info) Description 10/30/2024 Home Monitoring Care Coordination [address] [place] [address] HepIza tate LPN HTN, goal below 130/80* Allergies Active Allergy Reactions Criticality Noted Date Comments Codeine Other (Please comment) High 11/23/2012 hallucinations Other Reaction(s): nausea Enalapril Maleate Cough 11/12/2014 Morphine Low 11/09/2015 Spironolactone Itching 03/29/2024 Stopped spring 2023; took about 2 wks for itching to resolve documented as of this encounter (statuses as of 10/30/2024) Medications ASPIRIN 81 MG PO TABSIndications: S/P angioplasty with stent 1 tablets daily 30 Tab 11 3 Active Additional Information Patient taking differently: (No route reported), Reported on 10/16/2024 fluticasone (FLONASE) 50 MCG/ACT nasal spray Administer 2 Sprays into each nostril daily as needed for Allergies. 1 Inhaler 5 7 Active Multiple Vitamins TABS Take by mouth daily. Active Docusate Sodium 100 MG Oral Capsule (Colace)Indicati ons:Constipation , unspecified constipation type TAKE 1 CAPSULE BY MOUTH EVERY MORNING 90 Capsule 1 2 Active ProAir HFA 108 (90 Base) MCG/ACT Inhalation Aerosol SolutionIndicati ons:Bronchitis, complicated Inhale 2 Puffs by mouth every 4 hours as needed for Wheezing. 18 g 2 3 Active Metoprolol Succinate ER 25 MG Oral Tablet Extended Release 24 Hour (toPROL XL)Indications:P alpitations,Stab le angina (HCC) Take 1 Tablet by mouth at bedtime. 90 Tablet 3 08/22/2024 12:47 PM EST 4 Active Triamcinolone Acetonide 0.1 % External Cream (Aristocort)Nubia cations:Contact dermatitis, unspecified contact dermatitis type, unspecified trigger Apply topically to affected area 2 times a day 80 g 1 02/03/2024 12:30 PM EDT 4 Active amLODIPine Besylate 5 MG Oral Tablet (Norvasc)Indicat ions:HTN, goal below 140/90 Take 1 Tablet by mouth 2 times a day. 180 Tablet 3 09/27/2024 1:34 PM EST 4 Active Clopidogrel Bisulfate 75 MG Oral Tablet (pLAVix)Indicati ons:S/P angioplasty with stent TAKE ONE TABLET BY MOUTH IN THE MORNING 100 Tablet 1 07/19/2024 2:21 PM EDT 4 Active Famotidine 20 MG Oral Tablet (Pepcid)Indicati ons:Gastroesopha geal reflux disease without esophagitis TAKE ONE TABLET BY MOUTH TWICE A DAY 180 Tablet 1 07/19/2024 2:21 PM EDT 4 02/21/20 25 Active Additional Information Patient taking differently: 20 mg Oral Daily(AM), Reported on 10/16/2024 Fish Oil 1000 MG Oral CapsuleIndicatio ns:Dyslipidemia, goal LDL below 160 Take 1 Capsule by mouth in the morning and 1 Capsule before bedtime. 60 Capsule 5 4 Active Losartan Potassium 100 MG Oral Tablet (Cozaar)Indicati ons:Chronic kidney disease, stage 3a (HCC) Take 1 Tablet by mouth daily. 90 Tablet 3 10/17/2024 11:50 AM EST 4 Active Torsemide 5 MG Oral Tablet (Demadex)Indicat ions:Chronic kidney disease, stage 3a (HCC) TAKE ONE TABLET BY MOUTH IN THE MORNING 90 Tablet 3 10/17/2024 11:50 AM EST 4 04/12/20 25 Active hydroCHLOROthiaz america 25 MG Oral Tablet (Hydrodiuril)Ind ications:HTN, goal below 140/90 Take 1 Tablet by mouth in the morning. 90 Tablet 3 10/17/2024 11:50 AM EST 4 Active Gabapentin 100 MG Oral Capsule (Neurontin)Indic ations:Cervical radicular pain Take 1 Capsule by mouth in the morning and 1 Capsule at noon and 1 Capsule before bedtime. 270 Capsule 1 07/10/2024 2:16 PM EDT 4 Active Cetirizine HCl 10 MG Oral Tablet (ZyrTEC Allergy)Indicati ons:Itching Take 1 Tablet by mouth every night at bedtime. 100 Tablet 1 09/29/2024 11:15 AM EST 5 Active Pantoprazole Sodium 40 MG Oral Tablet Delayed Release (Protonix) TAKE ONE TABLET BY MOUTH EVERY DAY 100 Tablet 1 09/29/2024 11:15 AM EST 5 Active predniSONE 5 MG Oral Tablet (Deltasone) Take 15mg daily 90 Tablet 2 5 Active Rosuvastatin Calcium 40 MG Oral Tablet (Crestor)Indicat ions:Dyslipidemi a, goal LDL below 70 TAKE ONE TABLET BY MOUTH IN THE MORNING 100 Tablet 5 10/17/19 26 Active Benzonatate 100 MG Oral CapsuleIndicatio ns:Influenza A Take 1 Capsule by mouth 3 times a day as needed for Cough. 30 Capsule 1 5 Active Oseltamivir Phosphate 30 MG Oral Capsule (Tamiflu)Indicat ions:Influenza A Take 1 Capsule by mouth in the morning and 1 Capsule before bedtime. 10 Capsule 5 Active documented as of this encounter (statuses as of 10/30/2024) Active Problems Problem Noted Date Diagnosed Date 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) 08/23/2024 FDC current use of systemic steroids 08/23 Cervical stenosis of spinal canal 02/03/2024 Overview (02/10/2024): moderate to severe C6-7 Chronic kidney disease, stage 3a 08/27/2022 DDD (degenerative disc disease), cervical 2021 Chronic right shoulder pain 02/23/2022 Chronic neck pain 02/23/2022 Hx of actinic keratosis 09/30/2020 Ascending aorta dilation 11/16/2018 Hiatal hernia 10/13/2016 Stable angina 10/23/2013 Nodule of left lung 08/06/2010 Dyslipidemia, goal LDL below 70 08/29/2009 Overview (08/29/2009): Per Lipid Taxonomy. HTN, GOAL BELOW 140/90 08/07/2009 Overview (08/07/2009): Modified per HTN protocol #16. Impotence of organic origin 04/18/2008 Atherosclerosis of [place] co ronary artery of [place] heart with stable angina pectoris 01/01/2008 S/P angioplasty with stent 06/30/2006 Esophageal reflux 10/29/2005 documented as of this encounter (statuses as of 10/30/2024) Resolved Problems Problem Noted Date Diagnosed Date Resolved Date Prediabetes 04/29/2020 08/03/2024 Overview: Per Prediabetes protocol Cough due to RANDALL inhibitor 11/12/2014 0 01/30/2019 Hyperkalemia 11/12/2014 11/16/2018 Pre-operative cardiovascular examination 09/11/2014 11/12/2014 [employer] Other*[id number] 11/23/2012 10/27/2016 Overview (11/23/2012): Study Title: Genomic Markers for Patients with Cardiovascular Disease Project # [id number] Ad Operations Coordinator: Laine Cadena MD [phone] Abnormal stress echocardiogram 11/17/2012 01/30/2019 Impotence of organic origin 04/18/2008 11/16/2018 Chest pain 08/31/2006 01/30/2019 ADVANCE DIRECTIVE INFORMATION 08/21/2005 07/24/2024 Overview (08/21/2005): No, Advance Directive brochure given to patient at prior appointment. HIP & THIGH INJURY NOS 12/05/200401/30 Rosacea 02/23/2001 01/30/2019 Dyslipidemia, goal to be determined 08/29/2009 Overview (08/29/2009): Per Lipid Taxonomy. HYPERTENSION NOS 08/08/2009 Overview (08/08/2009): Modified per HTN protocol #16. documented as of this encounter (statuses as of 10/30/2024) Immunizations Name Administration Dates Next Due COVID-19 mRNA, LNP-s, No Pre serve, 2-Dose Series ([employer]) 01/01/2022,06/19/2021,11/25/2020,10/21 COVID-19, MRNA-LNP, 24-25, P R, 30MCG/0.3ML, IM, 12YRS AND ABOVE ([employer]) 06/05/2024 COVID-19, MRNA-LNP, PF, 30 M CG/0.3 mL, 12 YRS AND ABOVE, IM ([employer]-Comirnaty) 10/19/2023 H1N1 2009 Influenza, IM 09/24/2009 Pneumococcal Conjugate Vacc, 13 Valent (Prevnar) 01/30/2019 Pneumococcal Polysaccharide PPV23 (Pneumovax) 04/19/2020,12/20/2008 Season Influenza, Quad, PF, Adjuvanted, 65+ Yrs, IM (FLUAD) 07/09/2020 Seasonal Influenza Vac., MDV , IM, 0.5 mL (Fluzone) 07/04/2015,07/13/2014,07/12/2013,06/20,06/23/2011,07/23/2010,07/05/20 09 Seasonal Influenza Virus Vac cine, Unspecified Formulation 06/06/2021 Seasonal Influenza, High Dos e, Trivalent, PF, IM (Fluzone HD) 06/26/2019 Seasonal Influenza, PF, 6 M & above, IM , (FluLaval or Fluzone) 06/26/2019,06/28/2018,07/20/2017 07/20/2018 Seasonal Influenza, Quadriva lent Hd (Fluzone Hd) 05/28/2022 Seasonal Influenza, Quadriva lent, No Preserve, IM 07/08/2016 Seasonal Influenza, Quadriva lent, No Preserve, Mdck 06/28/2018 TD, Preservative Free 11/16/2018 TDAP, Age 7 and older, IM (Adacel) 06/12/2023, Varicella Zoster Vaccine (Adult) 01/11/2014 Zoster Vaccine [...] money to get more. Never true 11/15/2023 Childcare Answer Date Recorded Do you feel overwhelmed with taking care of a child, family member or friend? No 11/15/2023 Does your family need help f inding childcare? (Household - for ages 0-17 years) Not on file 11/15/2023 Clothing Answer Date Recorded Have you been unable to get clothing when it was really needed? No 11/15/2023 Is your family able to get c lothes or diapers when needed? (Household - for ages 0-17 years) Not on file 11/15/2023 Personal Safety Answer Date Recorded Do you feel unsafe or have concerns for your saf ety? No 11/15/2023 Do you have concerns for you r family's safety? (Household - for ages 0-17 years) Not on file 11/15/2023 Utilities Answer Date Recorded Do you have trouble paying y our heating, water, or electric bill? No 11/15/2023 Is your family able to pay t he heat, water, or electric bill? (Household - for ages 0-17 years) Not on file 11/15/2023 Does your family have access to good internet? (Household - for ages 0-17 years) Not on file 11/15/2023 Employment Status Answer Date Recorded Are you unemployed or without regular income? No 11/15/2023 Does the household have a re gular source of income? (Household - for ages 0-17 years) Not on file 11/15/2023 Social Connections Answer Date Recorded How often do you feel lonely or isolated from th ose around you? Never 11/15/2023 Financial Resource Strain Answer Date R ecorded Do you have any trouble payi ng for your medications, or do you think you might in the future? No 11/15/2023 Does your family have troubl e paying for medicine? (Household - for ages 0-17 years) Not on file 11/15/2023 Transportation Needs Answer Date Record ed READ ONLY Do you have troubl e getting a ride to medical visits or work? Never True 11/15/2023 Does your family have a hard time getting a ride to doctors visits? (Household - for ages 0-17 years) Not on file 11/15/2023 Has lack of transportation k ept you from medical appointments, meetings, work, or from getting things needed for daily living? Check all that apply. (Adult - for ages 18 years and over) Not on file 11/15/2023 Do you (or your family) have trouble finding or paying for a ride (transportation)? (Household - for ages 0-17 years) Not on file 11/15/2023 Housing Stability Answer Date Recorded Do you currently live in a s helter or have no steady place to sleep at night? No 11/15/2023 READ ONLY Do you think you a re at risk of becoming homeless? No 11/15/2023 Does your family worry about paying for your home or becoming homeless? (Household - for ages 0-17 years) Not on file 0 11/15/2023 Are you homeless or worried that you might be in the future? (Adult - for ages 18 years and over) Not on file Are you (or your family) narinder eless or worried that you might be in the future? (Household - for ages 0-17 years) Not on file Food Insecurity Answer Date Recorded Do you need food for this week? No 11/15/2023 Are you able to get enough f ood for your family? (Household - for ages 0-17 years) Not on file 11/15/2023 Does your family need food t his week? (Household - for ages 0-17 years) Not on file 11/15/2023 Do you always have enough fo od for your family? (Household - for ages 0-17 years) Not on file 11/15/2023 Food Insecurity Answer Date Recorded Within the past 12 months, y ou worried that your food would run out before you got the money to buy more. Never true 11/15/19 24 Within the past 12 months, t he food you bought just didn't last and you didn't have money to get more. Never true 11/15/2023 Do you need food for this week? 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 Not on file Not on file Not on fi le documented as of this encounter Progress Notes * Jazz Gibbons, [facility] - 10/30/2024 9:03 AM EST 10/20/24 10:38 10/21/24 08:51 10/22/24 13:12 10/28/24 17:49 10/30/24 08:45 Systolic BP 155 mm/Hg (H) [1] 133 mm/Hg [1] 151 mm/Hg (H) [1] 141 mm/Hg (H) [1] 146 mm/Hg (H) [1] Diastolic BP 80 mm/Hg [1] 73 mm/Hg [1] 77 mm/Hg [1] 86 mm/Hg [1] 80 mm/Hg [1] Pulse 50 bpm [1] 48 bpm (L) [1] 55 bpm [1] 74 bpm [1] 62 bpm [1] (H): Data is abnormally high (L): Data is abnormally low [1] CH:VITAL_READING_TYPE=SPOT CH:PERIPHERAL_BRAND=[facility] Readings elevated, likely due to current virus. Will continue to monitor. Jazz Gibbons RPh, PharmD Clinical Pharmacist - Senior Reactor Operator [facility] 10/30/2024, 9:04 AM [phone] * Iza Davis LPN - 10/30/2024 8:34 AM EST Enzo Shaw [phone] Enzo Shaw is currently participating in the [facility] Hypertension Management Program and had a reading on 10/28/2024 of 141/86. Pt has alerted for an Average BP over 7 days >/= 130/80 . Parameters are currently set as follows: Average BP over 7 days >/= 130/80 Singular Systolic BP Reading </= 90 or >/=180 Singular Diastolic BP Reading </= 50 or >/=120 Patient is not reporting new symptoms, however was recently diagnosed with the flu- currently taking tamiflu and nyquil. The patient does have all his blood [...] we can have them changed. Thank you! Iza Davis LPN documented in this encounter Plan of Treatment Upcoming Encounters Date Type Department Care Team (Late st Contact Info) Description 11/17/2024 9:00 AM EST Nurse Only Ancillary [address] [place] [id number] Veronica, Nurse [address] [place] [address] 12/04/2024 3:00 PM EDT Office Visit Rheumatology [address] [place] [phone] Tona Cm CRNP [address] [facility] [place] [address] 01/16/2025 2:00 PM EDT Office Visit Otolaryngology [facility] [address] [place] [address] Renata Garcia PA-C [address] [facility] [place] [address] 01/31/2025 3:20 PM EDT Office Visit Family Medicine [address] [place] [phone] Sabino Izaguirre MD [address] [place] [address] [place] [address] 02/27/2025 11:00 AM EDT [facility] [place] [address] Pennie Naranjo CRNP [address] [facility] [place] [address] 04/16/2025 2:20 PM EDT Office Visit Nephrology [address] [place] [address] Kriss Mendoza MD [address] [facility] [place] [address] Scheduled Procedures Name Priority Associated Diagnoses Date/Ti me COLONOSCOPY FLEXIBLE PROXIMA L DIAGNOSTIC Recall History of colonic polyps Health Maintenance Due Date Last Done Comments Cologuard 1998 Fecal Occult Blood Test 1998 Sigmoidoscopy 1998 COVID-19 Vaccine ( season) 2024 06/05/2024, 10/19/2023, 08/05/2022, Additional history exists Adult Wellness Visit 11/15/2024 11/15/2023, 11/11/19 23 Depression Screening 11/15/2024 11/15/2023 GFR 01/01/2025 07/03/2024, 03/20, 10/19/2023, Additional history exists Albumin/Creatinine Ratio 03/29/2025 024, 10/22/2022, 05/28/2022 CKD HGB USE SMARTSET 44125 07/03/202507/03, 07/03/2024, 10/19/2023, Additional history exists CKD PHOS USE SMARTSET 73620 07/03/2025 07/03/2024, 0 06/11/2023 Colonoscopy 02/27/2029 02/28/2024, 02/18, 06/05/2020, Additional history exists Colorectal Cancer Screening 02/27/2029 DTap/Tdap Vaccines (4 - Td or Tdap) 06/12/2033 06/12/2023, 11/16/2018, 04/18/2008 Zoster Vaccines Completed 12/06/2019, 09/20, 01/11/2014 Pneumococcal Vaccine: 50+ Years Completed 04/19/2020, 01/30/2019, 12/20/2008 Influenza Vaccine (FLU shot) Completed 01/2024, 06/21/2023, 05/28/2022, Additional history exists HPV (Gardasil) Vaccine Aged Out No lo nger eligible based on patient's age to complete this topic Hepatitis B Vaccine Aged Out No longe r eligible based on patient's age to complete this topic MENINGOCOCCAL (MENACTRA/MENVEO) Aged Out No longer eligible based on patient's age to complete this topic documented as of this encounter Medical Devices Implanted Type Area Automobile Racer Device Identifier Shelf Expiration Date Model / Serial / Lot Mesh Preshaped Large - [id number] Implanted:Qty : 1 on 12/31/2014 by Jj Weston MD at OR [facility] Right: Groin CR BARD : DAVOL 09/19/2018 [id number] / / [id number] Suture Wray Dbl Load 4.75mm - [id number] Implanted:Qty : 1 on 03/15/2020 by Kar Berry DO at OR [facility] Right: Shoulder [employer] 12/18/2021 [id number] / / [id number] documented as of this encounter Visit Diagnoses Diagnosis HTN, goal below 130/80- Primary Unspecified essential hypertension documented in this encounter Additional Health Concerns Infection Onset Date Last Indicated Resolved Time Influenza (seasonal) 10/25/2024 10/25/2024 documented as of this encounter Advance Directives * Full Code (Latest Code Status on File) Date Activated Date Inactivated Comments 11/23/2012 8:27 PM 11/24/2012 8:07 PM This order ref lects the patients wishes and were consensually agreed upon. Question Answer Comments Discussion of Advance Directives occurred with: Patient/Family Care Teams Bead Supervisor Relationship Specialty Start Date End Date Sabino Izaguirre MD [address] [place] [address] [place] [address] PCP - General Family Medicine 01/21/21 documented as of this encounter
--- OUTSIDE RECORDS SUMMARY | 2024-10-31 17:30 | External Medical Summary ---
Author Name Unknown Address Unknown Organization [id number]:[facility] - [address] [facility] [address] Laboratory Report Ordering Provider Test Date Status KING FERRARI 10/24/2024 09:44:04 Final Observation Date Value Abnormality Reference (Units ) Status Triglyceride 10/24/2024 09:44:04 134 <=174 ( mg/dL) Final Triglyceride Reference Range s (mg/dL):
<150 Acceptable
150-174 Borderline high
175-499 High
>=500 Very high Cholesterol 10/24/2024 09:44:04 152 <200 (mg /dL) Final Total Cholesterol Reference Ranges (mg/dL):
<200 Desirable
200-239 Borderline high
>=240 High HDL 10/24/2024 09:44:04 59 >39 (mg/dL ) Final HDL Cholesterol Reference Ra nges (mg/dL):
>=60 High (Desirable)
<50 Low (Undesirable) For Females
<40 Low (Undesirable) For Males NON-HDL CHOLESTEROL 10/24/2024 09:44:04 93 <=159 (mg/dL) Final Non-HDL Cholesterol Referenc e Range (mg/dL):
<100 Target level for high risk ASCVD patient
<130 Optimal for general population
130-159 Near optimal for general population
160-189 Borderline High
190-219 High
>=220 Very High LDL, (calculated) 10/24/2024 09:44:04 66 <= 129 (mg/dL) Final LDL Cholesterol Reference Ra nges (mg/dL):
<70 Target level for high risk ASCVD patient
<100 Optimal for general population
100-129 Near optimal for general population
130-159 Borderline high
160-189 High
>=190 Very high Performing Location [facility] - [address] [place] [address]
--- OUTSIDE RECORDS SUMMARY | 2024-10-31 17:30 | External Medical Summary | Summary of Care ---
Author Name Unknown Organization [facility] [address] [facility] [address] Phone [phone] Care Team Providers Care Production Line Solderer Name Role Phone Sabino Izaguirre MD Primary Care Provide r Reason for Visit * Reason Comments Outpatient Testing Encounter Details Date Type Department Care Team (Late st Contact Info) Description 10/16/2024 1:00 PM EST Laboratory Laboratory [address] [place] [phone] [place] [address] Prediabetes; MyCode Research Other*[id number] Allergies Active Allergy Reactions Criticality Noted Date Comments Enalapril Maleate Cough 11/12/2014 Spironolactone Itching 03/29/2024 Stopped spring 2023; took about 2 wks for itching to resolve documented as of this encounter (statuses as of 10/16/2024) Medications ASPIRIN 81 MG PO TABSIndications: S/P angioplasty with stent 1 tablets daily 30 Tab 11 3 Active Additional Information Patient taking differently: (No route reported), Reported on 08/29/2024 fluticasone (FLONASE) 50 MCG/ACT nasal spray Administer [...] differently: 20 mg Oral Daily(AM), Reported on 08/29/2024 Fish Oil 1000 MG Oral CapsuleIndicatio ns:Dyslipidemia, goal LDL below 160 Take 1 Capsule by mouth in the morning and 1 Capsule before bedtime. 60 Capsule 5 4 Active Losartan Potassium 100 MG Oral Tablet (Cozaar)Indicati ons:Chronic kidney disease, stage 3a (HCC) Take 1 Tablet by mouth daily. 90 Tablet 3 07/19/2024 2:21 PM EDT 4 Active Torsemide 5 MG Oral Tablet (Demadex)Indicat ions:Chronic kidney disease, stage 3a (HCC) TAKE ONE TABLET BY MOUTH IN THE MORNING 90 Tablet 3 07/19/2024 2:21 PM EDT 4 04/12/20 25 Active hydroCHLOROthiaz america 25 MG Oral Tablet (Hydrodiuril)Ind ications:HTN, goal below 140/90 Take 1 Tablet by mouth in the morning. 90 Tablet 3 07/19/2024 2:21 PM EDT 4 Active Gabapentin 100 MG Oral Capsule (Neurontin)Indic ations:Cervical radicular pain Take 1 Capsule by mouth in the morning and 1 Capsule at noon and 1 Capsule before bedtime. 270 Capsule 1 07/10/2024 2:16 PM EDT 4 Active Rosuvastatin Calcium 40 MG Oral Tablet (Crestor)Indicat ions:Dyslipidemi a, goal LDL below 70 TAKE ONE TABLET BY MOUTH IN THE MORNING 100 Tablet 1 08/07/2024 5:08 PM EST 4 04/30/20 25 Active Cetirizine HCl 10 MG Oral Tablet [...] 15mg daily 90 Tablet 2 5 Active documented as of this encounter (statuses as of 10/16/2024) Active Problems Problem Noted Date Diagnosed Date 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) 08/23/2024 assisted current use of systemic steroids 08/23 Cervical [...] Impotence of organic origin 04/18/2008 Atherosclerosis of [place] co ronary artery of elim [place] heart with stable angina pectoris 01/01/2008 S/P angioplasty with stent 06/30/2006 Esophageal reflux 10/29/2005 documented as of this encounter (statuses as of 10/16/2024) Resolved Problems Problem Noted Date Diagnosed Date Resolved Date Prediabetes 04/29/2020 08/03/2024 Overview: Per Prediabetes protocol Cough due to RANDALL inhibitor 11/12/2014 0 01/30/2019 Hyperkalemia 11/12/2014 11/16/2018 Pre-operative cardiovascular examination 09/11/2014 11/12/2014 [employer] Other*[id number] 11/23/2012 10/27/2016 Overview (11/23/2012): Study Title: Genomic Markers for Patients with Cardiovascular Disease Project # [id number] Gambling Box Person: Laine Cadena MD [phone] Abnormal stress echocardiogram 11/17/2012 01/30/2019 Impotence of [...] as of this encounter (statuses as of 10/16/2024) Immunizations Name Administration Dates Next Due COVID-19 mRNA, LNP-s, No Pre serve, 2-Dose Series ([email or web address]) 01/01/2022,06/19/2021,11/25/2020,10/21 COVID-19, MRNA-LNP, 24-25, P R, 30MCG/0.3ML, IM, 12YRS AND ABOVE ([email or web address]-ComirnatSatori Pharmaceuticals) 06/05/2024 COVID-19, MRNA-LNP, PF, 30 M CG/0.3 mL, 12 YRS AND ABOVE, IM (Sulfagenix-Comirnaty) 10/19/2023 H1N1 2009 Influenza, IM 09/24/2009 Pneumococcal [...] money to buy more. 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 on file Not on file Not on fi le documented as of this encounter Plan of Treatment Upcoming Encounters Date Type Department Care Team (Late st Contact Info) Description 10/16/2024 1:40 PM EST Office Visit Rheumatology [address] [place] [phone] Christiano Salas [facility] [address] [facility] [address] Arrived 11/17/2024 9:00 AM EST Nurse Only Ancillary [address] [place] [address] [place], Nurse [address] [place] [address] 12/04/2024 3:00 PM EDT Office Visit Rheumatology [address] [place] [phone] Tona Cm CRNP [address] [place], [place] [address] [address] 01/16/2025 2:00 PM EDT Office Visit Otolaryngology [facility] [address] [place] [address] Renata Garcia PA-C [address] [place] [address] 01/31/2025 3:20 PM EDT Office Visit Family Medicine [address] [place] [phone] Sabino Izaguirre MD [address] [facility] [place] [address] 02/27/2025 11:00 AM EDT Office Visit Cardiology, [facility] [address] [place] [address] Pennie [place] CRNP [address] [place] [address] 04/16/2025 2:20 PM EDT Office Visit Nephrology [address] [place] [address] Kriss [facility]endoza MD [address] [facility] [address] Pending Results Name Type Priority Associated Diagnoses Date /Time HEMOGLOBIN A1C Lab Routine Prediabetes 10/16/2024 1:00 PM EST MYCODE SUBSEQUENT ADULT Lab Routine [employer] Other*[id number] 10/16/2024 1:00 PM EST MYCODE SST1 Lab Routine [employer] Other*[id number] 10/16/2024 1:00 PM EST MYCODE SST2 Lab Routine [employer] Other*[id number] 10/16/2024 1:00 PM EST Scheduled Procedures Name Priority Associated [...] 024, 10/22/2022, 05/28/2022 CKD HGB USE SMARTSET 58587 07/03/202507/03, 07/03/2024, 10/19/2023, Additional history exists CKD PHOS USE SMARTSET 86962 07/03/2025 07/03/2024, 0 06/11/2023 Colonoscopy 02/27/2029 02/28/2024, [...] this encounter Medical Devices Implanted Type Area Grinder Brake Lining Device Identifier Shelf Expiration Date Model / Serial / Lot Mesh Preshaped Large - [id number] Implanted:Qty : 1 on 12/31/2014 by Jj Weston MD at OR [facility] Right: Groin CR BARD : DAVOL 09/19/2018 [id number] / / [id number] Suture [place] Dbl Load 4.75mm - [id number] Implanted:Qty : 1 on 03/15/2020 by Kar Berry DO at OR [facility] Right: Shoulder [employer] 12/18/2021 [id number]- [id number] / / [id number] documented as of this encounter Visit Diagnoses Diagnosis Prediabetes Other abnormal glucose My[employer] Research Other*[id number] documented in this encounter Advance Directives * Full Code (Latest Code Status on File) Date Activated Date Inactivated Comments 11/23/2012 8:27 PM 11/24/2012 8:07 PM This order ref lects the patients wishes and were consensually agreed upon. Question Answer Comments Discussion of Advance Directives occurred with: Patient/Family Care Teams Production Line Solderer Relationship Specialty Start Date End Date Sabino Izaguirre MD [address] [place] [address] [place] [address] PCP - General Family Medicine 01/21/21 documented as of this encounter
--- OUTSIDE RECORDS SUMMARY | 2024-10-31 17:30 | External Medical Summary ---
Author Name Unknown Address Unknown Organization K01:[facility] [place] [address] [place] [address] Laboratory Report Ordering Provider Test Date Status VILMA REAVES 10/16/2024 13:00:26 Final Observation Date Value Abnormality Reference (Units ) Status Erythrocyte sedimentation rate by Photometric method 10/16/2024 13:00:26 17 <20 (mm/hour) Final Performing Location [facility] [place] [address] [place] [address]
--- OUTSIDE RECORDS SUMMARY | 2024-10-31 17:30 | External Medical Summary | Summary of Care ---
Author Name Unknown Organization [facility] Address [address] [facility] [place] [address] Phone [phone] Care Team Providers Care Methods Analyst Data Processing Name Role Phone Milo Whittington MD Primary Care Provide r Reason for Visit * Reason Comments Medication Refill Encounter Details Date Type Department Care Team (Late st Contact Info) Description 10/16/2024 Refill Family Medicine [address] [phone] Milo Whittington MD [address] [place] [address] [place] [address] Dyslipidemia, goal LDL below 70 Allergies Active Allergy Reactions Criticality Noted Date Comments Codeine Other (Please comment) High 11/23/2012 hallucinations Other Reaction(s): nausea Enalapril Maleate Cough 11/12/2014 Morphine Low 11/09/2015 Spironolactone Itching 03/29/2024 Stopped spring 2023; took about 2 wks for itching to resolve documented as of this encounter (statuses as of 10/21/2024) Medications ASPIRIN 81 MG PO TABSIndications: S/P [...] Wheezing. 18 g 2 10/06/19 23 Active Metoprolol Succinate ER 25 MG Oral Tablet Extended Release 24 Hour (toPROL XL)Indications:P alpitations,Stab le angina (HCC) Take 1 Tablet by mouth at bedtime. 90 Tablet 3 08/22/2024 12:47 PM EST 11/04/19 24 Active Triamcinolone Acetonide 0.1 % External Cream (Aristocort)Nubia cations:Contact dermatitis, unspecified contact dermatitis type, unspecified trigger Apply topically to affected area 2 times a day 80 g 1 02/03/2024 12:30 PM EDT 01/04/20 24 Active amLODIPine Besylate 5 MG Oral Tablet (Norvasc)Indicat ions:HTN, goal below 140/90 Take 1 Tablet by mouth 2 times a day. 180 Tablet 3 09/27/2024 1:34 PM EST 02/22/20 24 Active Clopidogrel Bisulfate 75 MG Oral Tablet (pLAVix)Indicati ons:S/P angioplasty with stent TAKE ONE TABLET BY MOUTH IN THE MORNING 100 Tablet 1 07/19/2024 2:21 PM EDT 02/21/20 24 Active Famotidine 20 MG Oral Tablet (Pepcid)Indicati ons:Gastroesopha geal reflux disease without esophagitis TAKE ONE TABLET BY MOUTH TWICE A DAY 180 Tablet 1 07/19/2024 2:21 PM EDT 02/21/20 24 025 Active Additional Information Patient taking differently: 20 mg Oral Daily(AM), Reported on 10/16/2024 Fish Oil 1000 MG Oral CapsuleIndicatio ns:Dyslipidemia, goal LDL below 160 Take 1 Capsule by mouth in the morning and 1 Capsule before bedtime. 60 Capsule 5 02/21/20 24 Active Losartan Potassium 100 MG Oral Tablet (Cozaar)Indicati ons:Chronic kidney disease, stage 3a (HCC) Take 1 Tablet by mouth daily. 90 Tablet 3 10/17/2024 11:50 AM EST 02/22/20 24 Active Torsemide 5 MG Oral Tablet (Demadex)Indicat ions:Chronic kidney disease, stage 3a (HCC) TAKE ONE TABLET BY MOUTH IN THE MORNING 90 Tablet 3 10/17/2024 11:50 AM EST 04/12/20 24 025 Active hydroCHLOROthiaz america 25 MG Oral Tablet (Hydrodiuril)Ind ications:HTN, goal below 140/90 Take 1 Tablet by mouth in the morning. 90 Tablet 3 10/17/2024 11:50 AM EST 04/28/20 24 Active Gabapentin 100 MG Oral Capsule (Neurontin)Indic ations:Cervical radicular pain Take 1 Capsule by mouth in the morning and 1 Capsule at noon and 1 Capsule before bedtime. 270 Capsule 1 07/10/2024 2:16 PM EDT 04/28/20 24 Active Cetirizine HCl 10 MG Oral Tablet (ZyrTEC Allergy)Indicati ons:Itching Take 1 Tablet by mouth every night at bedtime. 100 Tablet 1 09/29/2024 11:15 AM EST 09/27/19 25 Active Pantoprazole Sodium 40 MG Oral Tablet Delayed Release (Protonix) TAKE ONE TABLET BY MOUTH EVERY DAY 100 Tablet 1 09/29/2024 11:15 AM EST 09/27/19 25 Active predniSONE 5 MG Oral Tablet (Deltasone) Take 15mg daily 90 Tablet 2 10/06/19 25 Active Rosuvastatin Calcium 40 MG Oral Tablet (Crestor)Indicat ions:Dyslipidemi a, goal LDL below 70 TAKE ONE TABLET BY MOUTH IN THE MORNING 100 Tablet 10/17/19 25 026 Active Rosuvastatin Calcium 40 MG Oral Tablet (Crestor)Indicat ions:Dyslipidemi a, goal LDL below 70 TAKE ONE TABLET BY MOUTH IN THE MORNING 100 Tablet 1 08/07/2024 5:08 PM EST 04/30/20 24 025 Discontin ued(Refil l) documented as of this encounter (statuses as of 10/21/2024) Active Problems Problem Noted Date Diagnosed Date 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 Cervical [...] Impotence of organic origin 04/18/2008 Atherosclerosis of [place] co ronary artery of [place] heart with stable angina pectoris 01/01/2008 S/P angioplasty with stent 06/30/2006 Esophageal reflux 10/29/2005 documented as of this encounter (statuses as of 10/21/2024) Resolved Problems Problem Noted Date Diagnosed Date Resolved Date Prediabetes 04/29/2020 08/03/2024 Overview: Per Prediabetes protocol Cough due to RANDALL inhibitor 11/12/2014 0 01/30/2019 Hyperkalemia 11/12/2014 11/16/2018 Pre-operative cardiovascular examination 09/11/2014 11/12/2014 [employer] Other*[id number] 11/23/2012 10/27/2016 Overview (11/23/2012): Study Title: Genomic Markers for Patients with Cardiovascular Disease Project # [id number] Legal Document Assistant: Laine Cadena MD [phone] Abnormal stress echocardiogram 11/17/2012 01/30/2019 Impotence of [...] as of this encounter (statuses as of 10/21/2024) Immunizations Name Administration Dates Next Due COVID-19 mRNA, LNP-s, No Pre serve, 2-Dose Series ([employer]) 01/01/2022,06/19/2021,11/25/2020,10/21 COVID-19, MRNA-LNP, 24-25, P R, 30MCG/0.3ML, IM, 12YRS AND ABOVE (GrownOut-Comirnaty) 06/05/2024 COVID-19, MRNA-LNP, PF, 30 M CG/0.3 mL, 12 YRS AND ABOVE, IM (Rangespan-Comirnaty) 10/19/2023 H1N1 2009 Influenza, IM 09/24/2009 Pneumococcal [...] 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 Patient was notified. Successfully contacted patient and provided [facility] message. * Telephone Encounter - Vonda Sánchez RP - 10/17/2024 12:34 PM ESTSigned Prescriptions: Disp Refills Rosuvastatin Calcium 40 MG Oral Tablet (Cr*100 Ta*0 Sig: TAKE ONE TABLET BY MOUTH IN THE MORNING Authorizing Provider: MILO WHITTINGTON Ordering User: VONDA SÁNCHEZ * Telephone Encounter - Vonda Sánchez RP - 10/17/2024 12:33 PM EST Provided 100 days supply with 0 refill(s). Per refill protocol patient should have lipid panel on file within past year. Reviewed : AMP report Care Gaps/Health Maintenance medications list for any routine labs typically ordered for this patient. Lab orders placed. Please contact patient to advise of labs ordered for blood draw. Recommend patient to fast if able for labs. Patient may still have water and regular medications. Advise to obtain labs before requesting the next refill. Vonda James Clinical Pharmacist [facility] ([facility] [phone] 10/17/2024, 12:34 PM documented in this encounter Plan of Treatment Upcoming Encounters Date Type Department Care Team (Late st Contact Info) Description 11/17/2024 9:00 AM EST Nurse Only Ancillary [address] [place] [address] Nurse Veronica [address] [place] [address] 12/04/2024 3:00 PM EDT Office Visit Rheumatology [address] [place] [phone] Tona Cm CRNP [address] [place] [address] [place] [address] 01/16/2025 2:00 PM EDT Office Visit Otolaryngology [facility] [address] [place] [address] Renata Garcia PA-C [address] [place] [address] 01/31/2025 3:20 PM EDT Office Visit Family Medicine [address] [place] [phone] Milo Whittington MD [address] [place] [address] [place] [address] 02/27/2025 11:00 AM EDT Office Visit Cardiology, [facility] [address] [place] [address] Pennie [place] CRNP [address] [place] [address] 04/16/2025 2:20 PM EDT Office Visit Nephrology [address] [place] [address] Kriss Mendoza MD [address] [place] [address] Scheduled Orders Name Type Priority Associated Diagnoses Orde r Schedule LIPID PANEL WITH DIRECT LDL IF TG IS HIGH Lab Routine Dyslipidemia, goal LDL below 70 Expected: 10/24/2024 (Approximate), Expires: 10/17/2025 Scheduled Procedures Name Priority Associated Diagnoses Date/Ti [...] 024, 10/22/2022, 05/28/2022 CKD HGB USE SMARTSET 04122 07/03/202507/03, 07/03/2024, 10/19/2023, Additional history exists CKD PHOS USE SMARTSET 30044 07/03/2025 07/03/2024, 0 06/11/2023 Colonoscopy 02/27/2029 02/28/2024, [...] this encounter Medical Devices Implanted Type Area Dressmaker Helper Device Identifier Shelf Expiration Date Model / Serial / Lot Mesh Preshaped Large - [id number] Implanted:Qty : 1 on 12/31/2014 by Jj Weston MD at OR [facility] Right: Groin CR BARD : DAVOL 09/19/2018 [id number] / / [id number] Suture [place] Dbl Load 4.75mm - [id number] Implanted:Qty : 1 on 03/15/2020 by Kar Berry DO at OR [facility] Right: Shoulder [employer] 12/18/2021 AR-2324BCT- 2 / / [id number] documented as of this encounter Visit Diagnoses Diagnosis Dyslipidemia, goal LDL below 70 Other and unspecified hyperlipidemia documented in this encounter Advance Directives * Full Code (Latest Code Status on File) Date Activated Date Inactivated Comments 11/23/2012 8:27 PM 11/24/2012 8:07 PM This order ref lects the patients wishes and were consensually agreed upon. Question Answer Comments Discussion of Advance Directives occurred with: Patient/Family Care Teams Methods Analyst Data Processing Relationship Specialty Start Date End Date Milo Whittington MD [address] [place] [address] [place] [address] PCP - General Family Medicine 01/21/21 documented as of this encounter
--- OUTSIDE RECORDS SUMMARY | 2024-10-31 17:30 | External Medical Summary | Summary of Care ---
Author Name Unknown Organization [facility] Address [address] [facility] [place] [address] Phone [phone] Care Team Providers Care Sales Engineer Account Manager Name Role Phone Sabino Izaguirre MD Primary Care Provide r Encounter Details Date Type Department Care Team (Late st Contact Info) Description 10/23/2024 Orders Only PATIENT PORTAL DO NOT DELETE THIS DEPT USED BY [place] [address] Allergies Active Allergy Reactions Criticality Noted Date Comments Codeine Other (Please comment) High 11/23/2012 hallucinations Other Reaction(s): nausea Enalapril Maleate Cough 11/12/2014 Morphine Low 11/09/2015 Spironolactone Itching 03/29/2024 Stopped spring 2023; took about 2 wks for itching to resolve documented as of this encounter (statuses as of 10/23/2024) Medications ASPIRIN 81 MG PO TABSIndications: S/P [...] MORNING 100 Tablet 5 10/17/19 26 Active documented as of this encounter (statuses as of 10/23/2024) Active Problems Problem Noted Date Diagnosed Date 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 Cervical [...] Impotence of organic origin 04/18/2008 Atherosclerosis of [place] co ronary artery of [place] heart with stable angina pectoris 01/01/2008 S/P angioplasty with stent 06/30/2006 Esophageal reflux 10/29/2005 documented as of this encounter (statuses as of 10/23/2024) Resolved Problems Problem Noted Date Diagnosed Date Resolved Date Prediabetes 04/29/2020 08/03/2024 Overview: Per Prediabetes protocol Cough due to RANDALL inhibitor 11/12/2014 0 01/30/2019 Hyperkalemia 11/12/2014 11/16/2018 Pre-operative cardiovascular examination 09/11/2014 11/12/2014 [employer] Other*[id number] 11/23/2012 10/27/2016 Overview (11/23/2012): Study Title: Genomic Markers for Patients with Cardiovascular Disease Project # [id number] Pediatric Np: Laine Cadena MD [phone] Abnormal stress echocardiogram 11/17/2012 01/30/2019 Impotence of [...] as of this encounter (statuses as of 10/23/2024) Immunizations Name Administration Dates Next Due COVID-19 mRNA, LNP-s, No Pre serve, 2-Dose Series (Yarraa) 01/01/2022,06/19/2021,11/25/2020,10/21 COVID-19, MRNA-LNP, 24-25, P R, 30MCG/0.3ML, IM, 12YRS AND ABOVE (Yarraa-ComirnatCARGOBR) 06/05/2024 COVID-19, MRNA-LNP, PF, 30 M CG/0.3 mL, 12 YRS AND ABOVE, IM ([employer]-Clique IntelligenceirnatCARGOBR) 10/19/2023 H1N1 2009 Influenza, IM 09/24/2009 Pneumococcal [...] 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 Not on file Not on fi le documented as of this encounter Plan of Treatment Upcoming Encounters Date Type Department Care Team (Late st Contact Info) Description 10/24/2024 10:10 AM EST Laboratory Laboratory [address] [place] [phone] [facility] [address] [place] [address] 11/17/2024 9:00 AM EST Nurse Only Ancillary [address] [place] [address] [place], Nurse [address] [place] [address] 12/04/2024 3:00 PM EDT Office Visit Rheumatology [address] [place] [phone] Tona Cm CRNP [address] [place] [address] [place] [address] 01/16/2025 2:00 PM EDT Office Visit Otolaryngology [facility] [address] [place] [address] Renata Garcia PA-C [address] [place] [address] 01/31/2025 3:20 PM EDT Office Visit Family Medicine [address] [place] [phone] Sabino Izaguirre MD [address] [place] [address] [place] [address] 02/27/2025 11:00 AM EDT Office Visit Cardiology, [facility] [address] [place] [address] Pennie [place] CRNP [address] [place] [address] 04/16/2025 2:20 PM EDT Office Visit Nephrology [address] [place] [address] Kriss Mendoza MD [address] [facility] [place] [address] Scheduled Procedures Name Priority Associated Diagnoses Date/Ti [...] 024, 10/22/2022, 05/28/2022 CKD HGB USE SMARTSET 70948 07/03/202507/03, 07/03/2024, 10/19/2023, Additional history exists CKD PHOS USE SMARTSET 96822 07/03/2025 07/03/2024, 0 06/11/2023 Colonoscopy 02/27/2029 02/28/2024, [...] this encounter Medical Devices Implanted Type Area Food Products Tester Device Identifier Shelf Expiration Date Model / Serial / Lot Mesh Preshaped Large - [id number] Implanted:Qty : 1 on 12/31/2014 by Jj Weston MD at OR [facility] Right: Groin CR BARD : DAVOL 09/19/2018 [id number] / / [id number] Suture [place] Dbl Load 4.75mm - [id number] Implanted:Qty : 1 on 03/15/2020 by Kar Berry DO at OR [facility] Right: Shoulder [employer] 12/18/2021 AR-2324BCT- 2 / / [id number] documented as of this encounter Advance Directives * Full Code (Latest Code Status on File) Date Activated Date Inactivated Comments 11/23/2012 8:27 PM 11/24/2012 8:07 PM This order ref lects the patients wishes and were consensually agreed upon. Question Answer Comments Discussion of Advance Directives occurred with: Patient/Family Care Teams Sales Engineer Account Manager Relationship Specialty Start Date End Date Sabino Izaguirre MD [address] [place] [address] [place] [address] PCP - General Family Medicine 01/21/21 documented as of this encounter
--- OUTSIDE RECORDS SUMMARY | 2024-10-31 17:30 | External Medical Summary ---
Author Name Unknown Address Unknown Organization K01:[facility] [place] [address] [facility] [address] Laboratory Report Ordering Provider Test Date Status JT BYRD 10/16/2024 13:00:26 Final Observation Date Value Abnormality Reference (Units ) Status MYCODE SPECIMEN-SST 10/16/2024 13:00:26 Freezing of extracted DNA, whole blood and/or serum. Final Performing Location [facility] [place] [address] [facility] [address]
--- OUTSIDE RECORDS SUMMARY | 2024-10-31 17:30 | External Medical Summary | Summary of Care ---
Author Name Unknown Organization [facility] Address [address] [place] [address] Phone [phone] Care Team Providers Care City Jailer Name Role Phone Sabino Izaguirre MD Primary Care Provide r Reason for Visit * Reason Onset Date Comments Remote Patient Monitoring Alert 10/10/2024 Encounter Details Date Type Department Care Team (Late st Contact Info) Description 10/10/2024 Home Monitoring Care Coordination [address] [place] [address] Ashlee Sánchez LPN HTN, goal below 130/80* Allergies Active Allergy Reactions Criticality Noted Date Comments Enalapril Maleate Cough 11/12/2014 Spironolactone Itching 03/29/2024 Stopped spring 2023; took about 2 wks for itching to resolve documented as of this encounter (statuses as of 10/12/2024) Medications ASPIRIN 81 MG PO TABSIndications: S/P [...] as of this encounter (statuses as of 10/12/2024) Active Problems Problem Noted Date Diagnosed Date 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) 08/23/2024 halfway current use of systemic steroids 08/23 Cervical [...] Impotence of organic origin 04/18/2008 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 01/01/2008 S/P angioplasty with stent 06/30/2006 Esophageal reflux 10/29/2005 documented as of this encounter (statuses as of 10/12/2024) Resolved Problems Problem Noted Date Diagnosed Date Resolved Date Prediabetes 04/29/2020 08/03/2024 Overview: Per Prediabetes protocol Cough due to RANDALL inhibitor 11/12/2014 0 01/30/2019 Hyperkalemia 11/12/2014 11/16/2018 Pre-operative cardiovascular examination 09/11/2014 11/12/2014 [employer] Other*[id number] 11/23/2012 10/27/2016 Overview (11/23/2012): Study Title: Genomic Markers for Patients with Cardiovascular Disease Project # [id number] Devil Tender: Laine Cadena MD [phone] Abnormal stress echocardiogram 11/17/2012 01/30/2019 Impotence of organic origin 04/18/2008 11/16/2018 Chest pain 08/31/2006 01/30/2019 ADVANCE DIRECTIVE INFORMATION 08/21/2005 07/24/2024 Overview (08/21/2005): No, Advance Directive brochure given to patient at prior appointment. HIP & THIGH INJURY NOS 12/05/200401/30 Rosacea 02/23/2001 01/30/2019 Dyslipidemia, goal to be determined 08/29/2009 Overview (08/29/2009): Per Lipid Taxonomy. HYPERTENSION NOS 08/08/2009 Overview (08/08/2009): Modified per [facility] protocol #16. 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 There are additional values that can be seen in Synopsis. [1] CH:VITAL_READING_TYPE=SPOT CH:PERIPHERAL_BRAND=[facility] BP remaining at goal. No changes at this time, will continue to monitor. Jazz Gibbons RPh, PharmD Clinical Pharmacist - [facility] 10/12/2024, 4:15 PM [phone] * Ashlee Sánchez LPN - 10/10/2024 3:54 PM EST Enzo Shaw [id number] Patient is currently participating in the [facility] Hypertension Management Program and has alerted on 10/07/2024 at 7:54 PMfor BP reading of 129/79. Parameters are currently set as follows: Average BP over 7 days >/= 130/80 Singular Systolic BP Reading </= 90 or >/=180 Singular Diastolic BP Reading </= 50 or >/=120 After multiple attempts via both text and phone (messages left), we were unable to reach patient tovalidate this reading and check on patients condition. We will continue to monitor patient for any additional alerts, please follow up with clinical staff if additional actions or interventions are recommended at this time. To ensure patient safety, patients have been educated that compliance with communication to monitoring center staff is a condition of participation in program. If you feel that this program is no longer appropriate and/or beneficial for your patient and would like to have them discharged, please let us know. I am unable to determine if he is currently having symptoms or remains asymptomatic. Unable to reach patient at this time. Thank you, ASHLEE SÁNCHEZ LPN documented in this encounter Plan of Treatment Upcoming Encounters Date Type Department Care Team (Late st Contact Info) Description 10/16/2024 1:40 PM EST Office Visit Rheumatology [address] [place] [phone] Christiano Salas MD [address] [employer] [place] [address] 11/17/2024 9:00 AM EST Nurse Only Ancillary [address] [place] [address] Veronica, Nurse [address] [place] [address] 12/04/2024 3:00 PM EDT Office Visit Rheumatology [address] [place] [phone] Tona Cm CRNP [address] [employer] [place] [address] 01/16/2025 2:00 PM EDT Office Visit Otolaryngology [facility] [address] [facility] [place] [address] Renata Garcia PA-C [address] [place] [address] 01/31/2025 3:20 PM EDT Office Visit Family Medicine [address] [place] [phone] Sabino Izaguirre MD [address] [place] [address] [place] [address] 02/27/2025 11:00 AM EDT Office Visit Cardiology, [facility] [address] [place] [address] Pennie Naranjo CRNP [address] [place] [address] 04/16/2025 2:20 PM EDT Office Visit Nephrology [address] [place] [address] Kriss [facility]endoza MD [facility] [place] [address] Scheduled Procedures Name Priority Associated Diagnoses Date/Ti [...] 024, 10/22/2022, 05/28/2022 CKD HGB USE SMARTSET 54002 07/03/2025 10/14 /2024, 07/03/2024, 10/19/2023, Additional history exists CKD PHOS USE SMARTSET 75937 07/03/2025 07/03/2024, 0 06/11/2023 Colonoscopy 02/27/2029 02/28/2024, [...] this encounter Medical Devices Implanted Type Area Vocational Technical Education Director Device Identifier Shelf Expiration Date Model / Serial / Lot Mesh Preshaped Large - [id number] Implanted:Qty : 1 on 12/31/2014 by Jj Weston MD at [facility] Right: Groin CR BARD : DAVOL 09/19/2018 [id number] / / [id number] Suture [place] Dbl Load 4.75mm - [id number] Implanted:Qty : 1 on 03/15/2020 by Kar Berry DO at OR [facility] Right: Shoulder [employer] 12/18/2021 [id number] / / [id number] documented as of this encounter Visit Diagnoses Diagnosis HTN, goal below 130/80- Primary Unspecified essential hypertension documented in this encounter Advance Directives * Full Code (Latest Code Status on File) Date Activated Date Inactivated Comments 11/23/2012 8:27 PM 11/24/2012 8:07 PM This order ref lects the patients wishes and were consensually agreed upon. Question Answer Comments Discussion of Advance Directives occurred with: Patient/Family Care Teams City Jailer Relationship Specialty Start Date End Date Sabino Izaguirre MD [address] [place] [address] [place] [address] PCP - General Family Medicine 01/21/21 documented as of this encounter
--- OUTSIDE RECORDS SUMMARY | 2024-10-31 17:30 | External Medical Summary ---
Author Name Unknown Address Unknown Organization K01:LABORATORY [facility] [place] - [address] [facility] [address] [facility] [address] Laboratory Report Ordering Provider Test Date Status JT BYRD 10/16/2024 13:00:26 Final Observation Date Value Abnormality Reference (Units ) Status MYCODE SPECIMEN-SST 10/16/2024 13:00:26 Freezing of extracted DNA, whole blood and/or serum. Final Performing Location LABORATORY [facility] [place] - [address] [facility] [address]
--- OUTSIDE RECORDS SUMMARY | 2024-10-31 17:30 | External Medical Summary ---
Author Name Unknown Address Unknown Organization [id number]:[facility] [place] [address] [facility] [address] Laboratory Report Ordering Provider Test Date Status DAVE GLYNN 10/25/2024 10:47:42 Final Observation Date Value Abnormality Reference (Units ) Status SARS Coronavirus 2 10/25/2024 10:47:42 Negative N egative Final No SARS-CoV2 Coronavirus RNA detected by PCR (amplified probe).
This automated test was developed and its performance characteristics determined by [facility]. It has not been cleared or approved [...] SARS-CoV-2 diagnosis, surveillance, and travel within the [facility] and to most countries. Please check with local testing authorities about requirements before travel.

The validation of bronchial specimens, tracheal aspirates, and sputum for this assay was developed and performance characteristics determined by [facility]. The validation of alternate specimen types has not been cleared or approved by the U.S. Food and Drug Administration (FDA). It has been determined that such clearance or approval is not necessary. Influenza virus A RNA [Prese nce] in Specimen by [facility] with probe detection 10/25/2024 10:47:42 Positive Abnormal Negative Final Influenza A RNA detected by PCR (amplified probe). Test results reported to [facility]. Influenza virus B RNA [Prese nce] in Specimen by [employer] with probe detection 10/25/2024 10:47:42 Negative Negative Final No Influenza B RNA detected by PCR (amplified probe) Respiratory syncytial virus RNA [Identifier] in Specimen by [employer] with probe detection 10/25/2024 10:47:42 Negative Negative Final No Respiratory Syncytial Vir us RNA detected by PCR (amplified probe) Performing Location [facility] [place] - [facility] [address] [place] [facility] [address]
--- OUTSIDE RECORDS SUMMARY | 2024-10-31 17:30 | External Medical Summary | Summary of Care ---
Author Name Unknown Organization [facility] Address [address] [facility] [address] Phone [phone] Care Team Providers Care Railway Engineer Name Role Phone Sabino Izaguirre MD Primary Care Provide r Reason for Visit * Reason Comments Rheum Follow Up Follow up - PMR Encounter Details Date Type Department Care Team (Late st Contact Info) Description 10/16/2024 1:40 PM EST Office Visit Rheumatology [address] [place] [phone] Christiano Salas MD [address] [facility] [place] [address] 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) ([facility])*; retirement current use of systemic steroids Allergies Active Allergy Reactions Criticality Noted Date [...] Date Diagnosed Date 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) 08/23/2024 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 08/23 Cervical [...] Impotence of organic origin 04/18/2008 Atherosclerosis of [place] co ronary artery of [place] heart with stable angina pectoris 01/01/2008 S/P angioplasty with stent 06/30/2006 Esophageal reflux 10/29/2005 documented as of this encounter (statuses as of 10/16/2024) Resolved Problems Problem Noted Date Diagnosed Date Resolved Date Prediabetes 04/29/2020 08/03/2024 Overview: Per Prediabetes protocol Cough due to RANDALL inhibitor 11/12/2014 0 01/30/2019 Hyperkalemia 11/12/2014 11/16/2018 Pre-operative cardiovascular examination 09/11/2014 11/12/2014 [employer] Other*[id number] 11/23/2012 10/27/2016 Overview (11/23/2012): Study Title: Genomic Markers for Patients with Cardiovascular Disease Project # [id number] Resident Service Coordinator: Laine Cadena MD [phone] Abnormal stress echocardiogram 11/17/2012 01/30/2019 Impotence of [...] mRNA, LNP-s, No Pre serve, 2-Dose Series ([employer]) 01/01/2022,06/19/2021,11/25/2020,10/21 COVID-19, MRNA-LNP, 24-25, P R, 30MCG/0.3ML, IM, 12YRS AND ABOVE ([employer]ogir[employer]ya [employer]) 06/05/2024 COVID-19, MRNA-LNP, PF, 30 M CG/0.3 mL, 12 YRS AND ABOVE, IM (ScanCafeComirnat[employer]ya [employer]) 10/19/2023 H1N1 2009 Influenza, IM 09/24/2009 Pneumococcal [...] Date Smoking Tobacco: Never Smokeless Tobacco: Never Tobacco Cessation:Counseling Given: Not Answered Alcohol Use Standard Drinks/Week Comments Yes 5.8 [...] 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 Since the last visithe is currently on 15mg daily and feels good. . He is reporting no pains today. He has been taking 15 mg prednisone for a month now. Has not tried to taper. Did have some blood work earlier today. Musculoskeletal ROS: . Normal Other ROS: . Constitutional: normal . Head normal . Eyes: normal . Ears, nose, throat, mouth: normal . Cardiovascular: normal . Respiratory: normal . Gastrointestinal: normal . Genitourinary: normal All other ROS reviewed and negative Social History: Social History Tobacco Use Smoking status: Never Smokeless tobacco: Never Substance Use Topics Alcohol use: Yes Alcohol/week: 5.8 standard drinks of alcohol Types: 7 5 oz of wine per week Comment: Once a month Vaping/E-Cigarette Use Vaping/E-Cigarette Use Never User Passive Exposure No Counseling Given? No Vaping/E-Cigarette Substances Vaping/E-Cigarette Devices Current Outpatient Medications Medication Sig Dispense Refill ASPIRIN 81 MG PO TABS 1 tablets [...] as needed for Wheezing. 18 g 2 Metoprolol Succinate ER 25 MG Oral Tablet Extended Release 24 Hour (toPROL XL) Take 1 Tablet by mouth at bedtime. 90 Tablet 3 Triamcinolone Acetonide 0.1 % External Cream (Aristocort) Apply topically to affected area 2 times a day 80 g 1 amLODIPine Besylate 5 MG Oral Tablet (Norvasc) Take 1 Tablet by mouth 2 times a day. 180 Tablet 3 Clopidogrel Bisulfate 75 MG Oral Tablet (pLAVix) TAKE ONE TABLET BY MOUTH IN THE MORNING 100 Tablet1 Famotidine 20 MG Oral Tablet (Pepcid) TAKE ONE TABLET BY MOUTH TWICE A DAY (Patient taking differently: Take 1 Tablet by mouth in the morning.) 180 Tablet 1 Fish Oil 1000 MG Oral Capsule Take 1 Capsule by mouth in the morning and 1 Capsule before bedtime. 60 Capsule 5 Losartan Potassium 100 MG Oral Tablet (Cozaar) Take 1 Tablet by mouth daily. 90 Tablet 3 Torsemide 5 MG Oral Tablet (Demadex) TAKE ONE TABLET BY MOUTH IN THE MORNING 90 Tablet 3 hydroCHLOROthiazide 25 MG Oral Tablet (Hydrodiuril) Take 1 Tablet by mouth in the morning. 90 Tablet 3 Gabapentin 100 MG Oral Capsule (Neurontin) Take 1 Capsule by mouth in the morning and 1 Capsule at noon and 1 Capsule before bedtime. 270 Capsule 1 Rosuvastatin Calcium 40 MG Oral Tablet (Crestor) TAKE ONE TABLET BY MOUTH IN THE MORNING 100 Tablet1 Cetirizine HCl 10 MG Oral Tablet (ZyrTEC Allergy) Take 1 Tablet by mouth every night at bedtime. 100 Tablet 1 Pantoprazole Sodium 40 MG Oral Tablet Delayed Release (Protonix) TAKE ONE TABLET BY MOUTH EVERY [id number] Tablet 1 predniSONE 5 MG Oral Tablet (Deltasone) Take 15mg daily 90 Tablet 2 No current facility-administered medications for this visit. Physical Exam: Temp 36.5 C (97.7 F) (Infrared ) | Wt 98.9 kg (218 lb) | BMI 32.17 kg/m | BSA 2.19 m General: alert, healthy, no distress, and well nourished Neck: supple, no adenopathy, thyroid normal size, non-tender, without nodularity Lymph: no palpable lymphadenopathy Heart: regular rate & rhythm and no gallops Lungs: clear to auscultation , no rales, wheezes or rhonchi Abdomen: abdomen soft, non-tender, and normal bowel sounds Musculoskeletal Exam: No pain with Shrestha or Neer testing both shoulders Normal muscle strength No thoracic kyphosis No trochanteric pain bilaterally Assessment: (M35.3) 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) ([facility]) (primary encounter diagnosis) (Z79.52) retirement current use of systemic steroids Currently he is doing well on prednisone 15 mg daily. Will start to taper at this point. Will have him take 12.5 mg daily for 2 weeks, 10 mg daily for 2 weeks, 7.5 mg daily for 2 weeks then 5 mg daily. Contact if does not do well with this tapering. If does get down to 5 mg daily will then try to taper by 1 mg every other week until off. Plan: 1. Added sed rate to blood work from today 2. Taper prednisone as noted above 3. Contact with any issues 4. Return to clinic in November as scheduled and will also get scheduled in May. Christiano Salas MD Department of Rheumatology documented in this encounter Nursing Notes * Jenae Fairbanks LPN - 10/16/2024 1:28 PM EST Chief Complaint Patient presents with Rheum Follow Up Follow up - PMR documented in this encounter Plan of Treatment Upcoming Encounters Date Type Department Care Team (Late st Contact Info) Description 11/17/2024 9:00 AM EST Nurse Only Ancillary [address] [place] [address] [place], Nurse [address] [place] [address] 12/04/2024 3:00 PM EDT Office Visit Rheumatology [address] [place] [phone] Tona Cm CRNP [address] [place] [address] [place] [address] 01/16/2025 2:00 PM EDT Office Visit Otolaryngology [facility] [address] [place] [address] Renata Garcia PA-C [address] [place] [address] 01/31/2025 3:20 PM EDT Office Visit Family Medicine [address] [place] [phone] Sabino Izaguirre MD [address] [place] [address] [place] [address] 02/27/2025 11:00 AM EDT Office Visit Cardiology, [facility] [address] [place] [address] Pennie Naranjo CRNP [address] [place] [address] 04/16/2025 2:20 PM EDT Office Visit Nephrology [address] [place] [address] Kriss Mendoza MD [address] [facility] [place] [address] Scheduled Orders Name Type Priority Associated Diagnoses Orde r Schedule ERYTHROCYTE SEDIMENTATION RATE (ESR) Lab Routine 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) (HCC) 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 Expected: 10/16/2024, Expires: 10/16/2025 Scheduled Procedures Name Priority Associated Diagnoses Date/Ti [...] 024, 10/22/2022, 05/28/2022 CKD HGB USE SMARTSET 13739 07/03/202507/03, 07/03/2024, 10/19/2023, Additional history exists CKD PHOS USE SMARTSET 55014 07/03/2025 07/03/2024, 0 06/11/2023 Colonoscopy 02/27/2029 02/28/2024, [...] encounter Medical Devices Implanted Type Area Supervisor Drawing Device Identifier Shelf Expiration Date Model / Serial / Lot Mesh Preshaped Large - [id number] Implanted:Qty : 1 on 12/31/2014 by Jj Weston MD at [facility] Right: Groin CR BARD : DAVOL 09/19/2018 [id number] / / [id number] Suture [place] Dbl Load 4.75mm - [id number] Implanted:Qty : 1 on 03/15/2020 by Kar Berry DO at OR [facility] Right: Shoulder [employer] 12/18/2021 [id number] / / [id number] documented as of this encounter Visit Diagnoses Diagnosis 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) (HCC)- Primary Polymyalgia rheumatica retirement current use of systemic steroids Encounter for long-term (current) use of steroids documented in this encounter Advance Directives * Full Code (Latest Code Status on File) Date Activated Date Inactivated Comments 11/23/2012 8:27 PM 11/24/2012 8:07 PM This order ref lects the patients wishes and were consensually agreed upon. Question Answer Comments Discussion of Advance Directives occurred with: Patient/Family Care Teams Railway Engineer Relationship Specialty Start Date End Date Sabino Izaguirre MD [address] [place] [address] [place] [address] PCP - General Family Medicine 01/21/21 documented as of this encounter"
--- OUTSIDE RECORDS SUMMARY | 2024-10-31 17:30 | External Medical Summary | Summary of Care ---
Author Name Unknown Organization [facility] Address [address] [facility] [address] Phone [phone] Care Team Providers Care Control Clerk Auditing Name Role Phone Sabino Izaguirre MD Primary Care Provide r Reason for Visit * Reason Comments Outpatient Testing Encounter Details Date Type Department Care Team (Late st Contact Info) Description 10/24/2024 10:10 AM EST Laboratory Laboratory [address] [place] [phone] [facility] [address] [place] [phone] Dyslipidemia, goal LDL below 70 Allergies Active Allergy Reactions Criticality Noted Date Comments Codeine Other (Please comment) High 11/23/2012 hallucinations Other Reaction(s): nausea Enalapril Maleate Cough 11/12/2014 Morphine Low 11/09/2015 Spironolactone Itching 03/29/2024 Stopped spring 2023; took about 2 wks for itching to resolve documented as of this encounter (statuses as of 10/24/2024) Medications ASPIRIN 81 MG PO TABSIndications: S/P [...] as of this encounter (statuses as of 10/24/2024) Active Problems Problem Noted Date Diagnosed Date 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) 08/23/2024 skilled nursing current use of systemic steroids 08/23 Cervical [...] Impotence of organic origin 04/18/2008 Atherosclerosis 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 01/01/2008 S/P angioplasty with stent 06/30/2006 Esophageal reflux 10/29/2005 documented as of this encounter (statuses as of 10/24/2024) Resolved Problems Problem Noted Date Diagnosed Date Resolved Date Prediabetes 04/29/2020 08/03/2024 Overview: Per Prediabetes protocol Cough due to RANDALL inhibitor 11/12/2014 0 01/30/2019 Hyperkalemia 11/12/2014 11/16/2018 Pre-operative cardiovascular examination 09/11/2014 11/12/2014 [employer] Other*[id number] 11/23/2012 10/27/2016 Overview (11/23/2012): Study Title: Genomic Markers for Patients with Cardiovascular Disease Project # [id number] Polisher Sand: Laine Cadena MD [phone] Abnormal stress echocardiogram 11/17/2012 01/30/2019 Impotence of [...] as of this encounter (statuses as of 10/24/2024) Immunizations Name Administration Dates Next Due COVID-19 mRNA, LNP-s, No Pre serve, 2-Dose Series ([employer]) 01/01/2022,06/19/2021,11/25/2020,10/21 COVID-19, MRNA-LNP, 24-25, P R, 30MCG/0.3ML, IM, 12YRS AND ABOVE ([employer]) 06/05/2024 COVID-19, MRNA-LNP, PF, 30 M CG/0.3 mL, 12 YRS AND ABOVE, IM ([employer]) 10/19/2023 H1N1 2009 Influenza, IM 09/24/2009 Pneumococcal [...] 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 [place] [address] 01/31/2025 3:20 PM EDT Office Visit Family Medicine [address] [place] [phone] Sabino Izaguirre MD [address] [place] [address] [place] [address] 02/27/2025 11:00 AM EDT Office Visit Cardiology, [address] [place] [address] Pennie Naranjo CRNP [address] [place] [address] 04/16/2025 2:20 PM EDT Office Visit Nephrology [address] [place] [address] Kriss [facility]endoza [facility] [address] Pending Results Name Type Priority Associated Diagnoses Date /Time LIPID PANEL WITH DIRECT LDL IF TG IS HIGH Lab Routine Dyslipidemia, goal LDL below 70 10/24/2024 9:44 AM EST Scheduled Procedures Name Priority Associated [...] 024, 10/22/2022, 05/28/2022 CKD HGB USE SMARTSET 63878 07/03/202507/03, 07/03/2024, 10/19/2023, Additional history exists CKD PHOS USE SMARTSET 76655 07/03/2025 07/03/2024, 0 06/11/2023 Colonoscopy 02/27/2029 02/28/2024, [...] this encounter Medical Devices Implanted Type Area Civil Engineer Land Development Device Identifier Shelf Expiration Date Model / Serial / Lot Mesh Preshaped Large - [id number] Implanted:Qty : 1 on 12/31/2014 by Jj Weston MD at OR [facility] Right: Groin CR BARD : DAVOL 09/19/2018 [id number] / / [id number] Suture [place] Dbl Load 4.75mm - [id number] Implanted:Qty : 1 on 03/15/2020 by Kar Berry DO at OR [facility] Right: Shoulder [employer] 12/18/2021 [id number] / / [id number] documented as of this encounter Visit Diagnoses [...] Advance Directives occurred with: Patient/Family Care Teams Control Clerk Auditing Relationship Specialty Start Date End Date Sabino Izaguirre MD [address] [place] [address] [place] [address] PCP - General Family Medicine 01/21/21 documented as of this encounter
--- OUTSIDE RECORDS SUMMARY | 2024-10-31 17:30 | External Medical Summary ---
Author Name Unknown Address Unknown Organization K01:LABORATORY [facility] - [address] [facility] [address] Laboratory Report Ordering Provider Test Date Status ANURAG PEDRAZALance 10/16/2024 13:00:26 Nakita l Observation Date Value Abnormality Reference (Units ) Status HbA1C 10/16/2024 13:00:26 5.9 Above high normal 4. 0-5.6 (%) Final The use of HbA1c to monitor glycemic status is based on normal hemoglobin and HbA composition. This test should not be used in patients with abnormal hemoglobin that affects the half life of the red blood cell or the in vivo glycation rates. Glucose, estimated average 10/16/2024 13:00:26 123 <126 (mg/dL) Final Performing Location LAB[facility]ATORY [facility] - [address] [facility] [address]
--- OUTSIDE RECORDS SUMMARY | 2024-10-31 17:30 | External Medical Summary | Summary of Care ---
Author Name Unknown Organization [facility] Address [address] [facility] [address] Phone [phone] Care Team Providers Care Manager Retail Store Name Role Phone Sabino Izaguirre MD Primary Care Provide r Reason for Visit * Reason Comments Acute Encounter Details Date Type Department Care Team (Late st Contact Info) Description 10/25/2024 10:40 AM EST Office Visit Family Medicine [address] [phone] Brook Simmons PA-C [address] [place] [address] [place] [address] Viral respiratory illness* Allergies Active Allergy Reactions Criticality Noted Date Comments Codeine Other (Please comment) High 11/23/2012 hallucinations Other Reaction(s): nausea Enalapril Maleate Cough 11/12/2014 Morphine Low 11/09/2015 Spironolactone Itching 03/29/2024 Stopped spring 2023; took about 2 wks for itching to resolve documented as of this encounter (statuses as of 10/25/2024) Medications ASPIRIN 81 MG PO TABSIndications: S/P [...] as of this encounter (statuses as of 10/25/2024) Active Problems Problem Noted Date Diagnosed Date 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) 08/23/2024 senior living current use of systemic steroids 08/23 Cervical [...] Impotence of organic origin 04/18/2008 Atherosclerosis of [place] co ronary artery of [place] heart with stable angina pectoris 01/01/2008 S/P angioplasty with stent 06/30/2006 Esophageal reflux 10/29/2005 documented as of this encounter (statuses as of 10/25/2024) Resolved Problems Problem Noted Date Diagnosed Date Resolved Date Prediabetes 04/29/2020 08/03/2024 Overview: Per Prediabetes protocol Cough due to RANDALL inhibitor 11/12/2014 0 01/30/2019 Hyperkalemia 11/12/2014 11/16/2018 Pre-operative cardiovascular examination 09/11/2014 11/12/2014 [employer] Other*[id number] 11/23/2012 10/27/2016 Overview (11/23/2012): Study Title: Genomic Markers for Patients with Cardiovascular Disease Project # [id number] Mathematical Engineer: Laine Cadena MD [phone] Abnormal stress echocardiogram 11/17/2012 01/30/2019 Impotence of [...] as of this encounter (statuses as of 10/25/2024) Immunizations Name Administration Dates Next Due COVID-19 mRNA, LNP-s, No Pre serve, 2-Dose Series ([employer]) 01/01/2022,06/19/2021,11/25/2020,10/21 COVID-19, MRNA-LNP, 24-25, P R, 30MCG/0.3ML, IM, 12YRS AND ABOVE ([employer]) 06/05/2024 COVID-19, MRNA-LNP, PF, 30 M CG/0.3 mL, 12 YRS AND ABOVE, IM (ulike) 10/19/2023 H1N1 2008 Influenza, IM 09/24/2009 Pneumococcal Conjugate Vacc, 13 [...] 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 Not on file Not on fi le documented as of this encounter Last Filed Vital Signs Vital Sign Reading Time Taken Comments Blood Pressure 140/64 10/25/2024 10:38 AM EST Pulse 62 10/25/2024 10:38 AM EST Temperature 36.3 C (97.4 F) 10/25/2024 10:[address] Respiratory Rate - - Oxygen Saturation 94% 10/25/2024 10:38 AM EST Inhaled Oxygen Concentration - - Weight - - Height - - Body Mass Index - - documented in this encounter Progress Notes * Brook Simmons PA-C - 10/25/2024 10:42 AM EST Nursing Notes: Kyara Smith LPN 10/25/24 1041 Sign at exiting of workspace Whole family has had a viral illness, some stomach, some respiratory Chest cold Sore throat Body aches Sneezing Coughing Congestion Since yesterday Pt here today with cough, chest congestion, body aches, nasal/head congestion for the past day. Pt denies fever, chills, nausea, vomiting, diarrhea. Whole house has been sick. Review of patient's allergies indicates: Allergen Reactions Codeine Other (Please comment) hallucinations Other Reaction(s): nausea Enalapril Maleate Cough Spironolactone Itching Stopped spring 2023; took about 2 wks for itching to resolve Morphine Current Outpatient Medications Medication Sig Dispense Refill [...] 1 Capsule before bedtime. 270 Capsule 1 Cetirizine HCl 10 MG Oral Tablet (ZyrTEC Allergy) Take 1 Tablet by mouth every night at bedtime. 100 Tablet 1 Pantoprazole Sodium 40 MG Oral Tablet Delayed Release (Protonix) TAKE ONE TABLET BY MOUTH EVERY EFY830 Tablet 1 predniSONE 5 MG Oral Tablet (Deltasone) Take 15mg daily 90 Tablet 2 Rosuvastatin Calcium 40 MG Oral Tablet (Crestor) TAKE ONE TABLET BY MOUTH IN THE MORNING 100 Tablet0 No current facility-administered medications for this visit. Past Medical History: Diagnosis Date Abnormal stress echocardiogram 11/17/2012 Calculus of kidney Cervical stenosis of spinal canal 02/03/2024 moderate to severe C6-7 Chest pain 02/03/2024 probably musculoskeletal or neurologic Coronary atherosclerosis of [place] coronary artery 01/01/2008 Cough due to RANDALL inhibitor 11/12/2014 Dyslipidemia, goal to be determined GERD (gastroesophageal reflux disease) Impotence of organic origin 04/18/2008 Primary hypertension Rosacea S/P angioplasty with stent 09/10/2005 [employer]flex Social History Socioeconomic History Marital status: Spouse name: Pam Number of children: 4 Years of education: Not on file Highest education level: Not on file Occupational History 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 (Adult - for ages 18 years and over): No Does your family have trouble paying for medicine? (Household - for ages 0-17 years): Not on file Food Insecurity: No Food Insecurity (11/15/2023) Food Insecurity Worried About Running Out of Food in the Last Year: Never true Ran Out of Food in the Last Year: Never true Do you need food for this week? (Adult - for ages 18 years and over): No Transportation Needs: No Transportation Needs (11/15/2023) Transportation Needs Do you have trouble getting a ride to medical visits or work? (Adult - for ages 18 years and over):Never True Does your family have a hard time getting a ride to doctors visits? (Household - for ages 0-17 years): Not on file Has lack of transportation kept you from medical appointments, meetings, work, or from getting things needed for daily living? Check all that apply. (Adult - for ages 18 years and over): Not on file Do you (or your family) have trouble finding or paying for a ride (transportation)? (Household - for ages 0-17 years): Not on file Social Connections: Socially Integrated (11/15/2023) Social Connections How often do you feel lonely or isolated from those around you? (Adult - for ages 18 years and over): Never Housing Stability: Low Risk (11/15/2023) Housing Stability Do you currently live in a chcf or have no steady place to sleep at night? (Adult - for ages 18 years and over): No Do you think you are at risk of becoming homeless? (Adult - for ages 18 years and over): No Does your family worry about paying for your home or becoming homeless? (Household - for ages 0-17 years): Not on file Are you homeless or worried that you might be in the future? (Adult - for ages 18 years and over): Not on file Are you (or your family) homeless or worried that you might be in the future? (Household - for ages0-17 years): Not on file O:Blood pressure 140/64, pulse 62, temperature 97.4 F (36.3 C), temperature source Tympanic, SpO2 94%. GENERAL: alert and no distress NECK: supple, no adenopathy EYES: PERRLA, conjunctiva are pink and non-injected, sclera clear EARS: External ears normal, Canals clear, TM's Normal NOSE: no mucosal erythema, no mucosal edema, no purulent discharge OROPHARYNX: no exudate, no erythema, lips, buccal mucosa, and tongue normal, and mucous membranes are moist HEART: regular rate & rhythm, no murmur, and no gallops LUNGS: chest symmetric with normal AP diameter, no chest deformities noted, no chest wall tenderness, lungs clear to auscultation A:Viral respiratory illness (Primary) - XR CHEST 2 VIEWS - INFLUENZA A/B RSV SARS-COV2,PCR; Future; Expected date: 10/25/2024 - INFLUENZA A/B RSV SARS-COV2,PCR Will xray chest. MECHANIC AND WELDER swab. Rest, fluids. Any questions/problems, please call. If anything changes, worsens, develops new sx, please call [facility]. Follow Up: Return if symptoms worsen or fail to improve. Brook Simmons PA-C documented in this encounter Nursing Notes * Kyara Smith LPN - 10/25/2024 10:40 AM EST Whole family has had a viral illness, some stomach, some respiratory Chest cold Sore throat Body aches Sneezing Coughing Congestion Since yesterday documented in this encounter Plan of Treatment Upcoming Encounters Date Type Department Care Team (Late st Contact Info) Description 11/17/2024 9:00 AM EST Nurse Only Ancillary [address] [place] [address] [place], Nurse [address] [place] [address] 12/04/2024 3:00 PM EDT Office Visit Rheumatology [address] [place] [phone] Tona Cm CRNP [address] [place] [address] [place] [address] 01/16/2025 2:00 PM EDT Office Visit [facility] [address] [facility] [place] [address] Renata Garcia PA-C [address] [place] [address] 01/31/2025 3:20 PM EDT Office Visit Family Medicine [address] [place] [phone] Sabino Izaguirre MD [address] [place] [address] [place] [address] 02/27/2025 11:00 AM EDT Office Visit Cardiology, [facility] [address] [place] [address] Pennie Naranjo CRNP [address] [place] [address] 04/16/2025 2:20 PM EDT Office Visit Nephrology [address] [place] [address] Kriss Mendoza MD 200 [facility] [place] [address] Pending Results Name Type Priority Associated Diagnoses Date /Time INFLUENZA A/B RSV SARS-COV2,PCR Lab Routine Viral respiratory illness 10/25/2024 10:47 AM EST Scheduled Orders Name Type Priority Associated Diagnoses Orde r Schedule INFLUENZA A/B RSV SARS-COV2,PCR Lab Routine Viral respiratory illness Expected: 10/25/2024 (Approximate), Expires: 10/25/2025 Scheduled Procedures Name Priority Associated Diagnoses Date/Ti [...] 024, 10/22/2022, 05/28/2022 CKD HGB USE SMARTSET 57871 07/03/202507/03, 07/03/2024, 10/19/2023, Additional history exists CKD PHOS USE SMARTSET 30501 07/03/2025 07/03/2024, 0 06/11/2023 Colonoscopy 02/27/2029 02/28/2024, [...] this encounter Medical Devices Implanted Type Area Slumber Room Attendant Device Identifier Shelf Expiration Date Model / Serial / Lot Mesh Preshaped Large - [id number] Implanted:Qty : 1 on 12/31/2014 by Jj Weston MD at OR [facility] Right: Groin CR BARD : DAVOL 09/19/2018 [id number] / / [id number] Suture [place] Dbl Load 4.75mm - [id number] Implanted:Qty : 1 on 03/15/2020 by Kar Berry DO at OR [facility] Right: Shoulder [employer] 12/18/2021 [id number]- [id number] / / [id number] documented as of this encounter Procedures Procedure Name Priority Date/Time Associated Diagnosis Comments XR CHEST 2 VIEWS Routine 10/25/2024 11:0 6 AM EST Viral respiratory illness documented in this encounter Results * XR CHEST 2 VIEWS (10/25/2024 11:06 AM EST) Anatomical Region Laterality Modality Chest Computed Radiogr aphy 10/25/2024 11:5 0 AM EST Impressions 10/25/2024 11:48 AM EST IMPRESSION 1. No compelling radiographic evidence of acute bacterial pneumonia or pulmonary edema. 2. Additional findings as above. Narrative 10/25/2024 11:48 AM EST EXAM XR CHEST 2 VIEWS-10/25/2024 11:06 am HISTORY cough COMPARISON XR CHEST 2 VIEWS, ACC: [id number], dated 2018-02-07 15:08:29; CHEST 2 VIEWS AP OR PA AND LATERAL, ACC: [id number], dated 2017-06-17 10:23:24; CHEST 2 VIEWS AP OR PA AND LATERAL, ACC: [id number], dated 2012-11-17 09:36:26; CT ABD_PELVIS WO IV_ORAL CONTRAST, ACC: [id number], dated 2018-12-08 16:07:55 TECHNIQUE Radiography of the chest. XR CHEST 2 VIEWS FINDINGS No acute focal consolidation. No pulmonary edema. No pneumothorax or pleural effusion observed. Stable cardiomediastinal silhouette.No acute osseous abnormality. Low lung volumes. Procedure Note Christiano Burnette MD - 10/25/2024 EXAM XR CHEST 2 VIEWS-10/25/2024 11:06 am HISTORY cough COMPARISON XR CHEST 2 VIEWS, ACC: [id number], dated 2018-02-07 15:08:29; CHEST 2 VIEWS AP OR PA AND LATERAL, ACC: [id number], d [id number]:23:24; CHEST 2 VIEWS AP OR PA AND LATERAL, ACC: [id number], dated [id number]:36:26; CT ABD_PELVIS WO IV_ORAL CONTRAST, ACC: [id number], dated [id number]:07:55 TECHNIQUE Radiography of the chest. XR CHEST 2 VIEWS FINDINGS No acute focal consolidation. No pulmonary edema. No pneumothorax orpleural effusion observed. Stable cardiomediastinal silhouette.No acuteosseous abnormality. Low lung volumes. IMPRESSION IMPRESSION 1. No compelling radiographic evidence of acute bacterial pneumonia orpulmonary edema. 2. Additional findings as above. us Brook Simmons PA-C RADIOLOGY ([facility]) Fi nal Result documented in this encounter Visit Diagnoses Diagnosis Viral respiratory illness- Primary Unspecified viral infection, in conditions classified elsewhere and of unspecified site documented in this encounter Advance Directives * Full Code (Latest Code Status on File) Date Activated Date Inactivated Comments 11/23/2012 8:27 PM 11/24/2012 8:07 PM This order ref lects the patients wishes and were consensually agreed upon. Question Answer Comments Discussion of Advance Directives occurred with: Patient/Family Care Teams Manager Retail Store Relationship Specialty Start Date End Date Sabino Izaguirre MD [address] [place] [address] [place] [address] PCP - General Family Medicine 01/21/21 documented as of this encounter
--- OUTSIDE RECORDS SUMMARY | 2024-10-31 17:31 | External Medical Summary | Summary of Care ---
Author Name Unknown Organization [facility] Address [address] [facility] [address] Phone [phone] Care Team Providers Care Telecommunication Engineer Name Role Phone Sabino Izaguirre MD Primary Care Provide r Encounter Details Date Type Department Care Team (Late st Contact Info) Description 10/03/2024 Population Health External Data Unspecified Department Allergies Active Allergy Reactions Criticality Noted Date Comments Enalapril Maleate Cough 11/12/2014 Spironolactone Itching 03/29/2024 Stopped spring 2023; took about 2 wks for itching to resolve documented as of this encounter (statuses as of 10/04/2024) Medications ASPIRIN 81 MG PO TABSIndications: S/P [...] 5:08 PM EST 4 04/30/20 25 Active predniSONE 5 MG Oral Tablet (Deltasone) Take 2 Tablets by mouth daily for 14 days, THEN 1.5 Tablets daily for 14 days, THEN 1 Tablet daily for 14 days. 63 Tablet 4 10/04/19 25 Active Cetirizine HCl 10 MG Oral Tablet (ZyrTEC Allergy)Indicati ons:Itching Take 1 Tablet by mouth every night at bedtime. 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 08/23 Cervical [...] Impotence of organic origin 04/18/2008 Atherosclerosis of [place] co ronary artery of [place] heart with stable angina pectoris 01/01/2008 S/P angioplasty with stent 06/30/2006 Esophageal reflux 10/29/2005 documented as of this encounter (statuses as of 10/04/2024) Resolved Problems Problem Noted Date Diagnosed Date Resolved Date Prediabetes 04/29/2020 08/03/2024 Overview: Per Prediabetes protocol Cough due to RANDALL inhibitor 11/12/2014 0 01/30/2019 Hyperkalemia 11/12/2014 11/16/2018 Pre-operative cardiovascular examination 09/11/2014 11/12/2014 [employer] Other*[id number] 11/23/2012 10/27/2016 Overview (11/23/2012): Study Title: Genomic Markers for Patients with Cardiovascular Disease Project # [id number] Unit Clerk: Laine Cadena MD [phone] Abnormal stress echocardiogram 11/17/2012 01/30/2019 Impotence of [...] as of this encounter (statuses as of 10/04/2024) Immunizations Name Administration Dates Next Due COVID-19 mRNA, LNP-s, No Pre serve, 2-Dose Series (Pfizer) 01/01/2022,06/19/2021,11/25/2020,10/21 COVID-19, MRNA-LNP, 24-25, P R, 30MCG/0.3ML, IM, 12YRS AND ABOVE (BuedaTerraPower) 06/05/2024 COVID-19, MRNA-LNP, PF, 30 M CG/0.3 mL, 12 YRS AND ABOVE, IM (The [employer] Report) 10/19/2023 H1N1 2009 Influenza, IM 09/24/2009 Pneumococcal [...] 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 Not on file Not on fi le documented as of this encounter Plan of Treatment Upcoming Encounters Date Type Department Care Team (Late st Contact Info) Description 11/17/2024 9:00 AM EST Nurse Only Ancillary [address] [place] [address] [place], Nurse [address] [place] [address] 12/04/2024 3:00 PM EDT Office Visit Rheumatology [address] [place] [phone] Tona Cm CRNP [address] [place] [address] [place] [address] 01/16/2025 2:00 PM EDT Office Visit Otolaryngology [facility] [address] [place] [address] Renata Garcia PA-C [address] [place] [address] 01/31/2025 3:20 PM EDT Office Visit Family Medicine [address] [place] [phone] Sabino Izaguirre MD [address] [place] [address] [place] [address] 02/27/2025 11:00 AM EDT Office Visit Cardiology, [facility] [address] [place] [address] Pennie Naranjo CRNP [address] [place] [address] 04/16/2025 2:20 PM EDT Office Visit Nephrology [address] [place] [address] Kriss Mendoza MD [address] [facility] [place] [address] Scheduled Procedures Name Priority Associated Diagnoses Date/Ti [...] 024, 10/22/2022, 05/28/2022 CKD HGB USE SMARTSET 90644 07/03/202507/03, 07/03/2024, 10/19/2023, Additional history exists CKD PHOS USE SMARTSET 15425 07/03/2025 07/03/2024, 0 06/11/2023 Colonoscopy 02/27/2029 02/28/2024, [...] this encounter Medical Devices Implanted Type Area Direct Marketing Executive Device Identifier Shelf Expiration Date Model / Serial / Lot Mesh Preshaped Large - [id number] Implanted:Qty : 1 on 12/31/2014 by Jj Weston MD at OR [facility] Right: Groin CR BARD : DAVOL 09/19/2018 [id number] / / [id number] Suture [place] Dbl Load 4.75mm - [id number] Implanted:Qty : 1 on 03/15/2020 by Kar Berry DO at OR [facility] Right: Shoulder [employer] 12/18/2021 AR-2324BCT- 2 / / [id number] documented as of this encounter Advance Directives * Full Code (Latest Code Status on File) Date Activated Date Inactivated Comments 11/23/2012 8:27 PM 11/24/2012 8:07 PM This order ref lects the patients wishes and were consensually agreed upon. Question Answer Comments Discussion of Advance Directives occurred with: Patient/Family Care Teams Telecommunication Engineer Relationship Specialty Start Date End Date Sabino Izaguirre MD [address] [place] [address] [place] [address] PCP - General Family Medicine 01/21/21 documented as of this encounter
--- OUTSIDE RECORDS SUMMARY | 2024-10-31 17:31 | External Medical Summary | Summary of Care ---
Author Name Unknown Organization [facility] Address [address] [facility] [address] Phone [phone] Care Team Providers Care Principal Biostatistician Name Role Phone Sabino Izaguirre MD Primary Care Provide r Encounter Details Date Type Department Care Team (Late st Contact Info) Description 10/10/2024 Population Health External Data Unspecified Department Allergies Active Allergy Reactions Criticality Noted Date Comments Enalapril Maleate Cough 11/12/2014 Spironolactone Itching 03/29/2024 Stopped spring 2023; took about 2 wks for itching to resolve documented as of this encounter (statuses as of 10/10/2024) Medications ASPIRIN 81 MG PO TABSIndications: S/P [...] as of this encounter (statuses as of 10/10/2024) Active Problems Problem Noted Date Diagnosed Date [...] of organic origin 04/18/2008 Atherosclerosis of [place] co ronary artery of [place] heart with stable angina pectoris 01/01/2008 S/P angioplasty with stent 06/30/2006 Esophageal reflux 10/29/2005 documented as of this encounter (statuses as of 10/10/2024) Resolved Problems Problem Noted Date Diagnosed Date Resolved Date Prediabetes 04/29/2020 08/03/2024 Overview: Per Prediabetes protocol Cough due to RANDALL inhibitor 11/12/2014 0 01/30/2019 Hyperkalemia 11/12/2014 11/16/2018 Pre-operative cardiovascular examination 09/11/2014 11/12/2014 [employer] Other*[id number] 11/23/2012 10/27/2016 Overview (11/23/2012): Study Title: Genomic Markers for Patients with Cardiovascular Disease Project # [id number] [place] Tower Loader: Laine Cadena MD [phone] Abnormal stress echocardiogram 11/17/2012 01/30/2019 Impotence of [...] as of this encounter (statuses as of 10/10/2024) Immunizations Name Administration Dates Next Due COVID-19 mRNA, LNP-s, No Pre serve, 2-Dose Series (Flirtic.com) 01/01/2022,06/19/2021,11/25/2020,10/21 COVID-19, MRNA-LNP, 24-25, P R, 30MCG/0.3ML, IM, 12YRS AND ABOVE ([facility]) 06/05/2024 COVID-19, MRNA-LNP, PF, 30 M CG/0.3 mL, 12 YRS AND ABOVE, IM ([facility]) 10/19/2023 H1N1 2009 Influenza, IM 09/24/2009 Pneumococcal [...] 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 Not on file Not on fi le documented as of this encounter Plan of Treatment Upcoming Encounters Date Type Department Care Team (Late st Contact Info) Description 10/16/2024 1:40 PM EST Office Visit Rheumatology [address] [place] [phone] Christiano Salas MD [facility] [place] [address] 11/17/2024 9:00 AM EST Nurse Only Ancillary [address] [place] [address] [place], Nurse [address] [place] [address] 12/04/2024 3:00 PM EDT Office Visit Rheumatology [address] [place] [phone] Tona Cm CRNP [address] [place] [address] [place] [address] 01/16/2025 2:00 PM EDT Office [facility] [place] [address] Renata Garcia PA-C [address] [place] [address] 01/31/2025 3:20 PM EDT Office Visit Family Medicine [address] [place] [phone] Sabino Izaguirre MD [address] [place] [address] [place] [address] 02/27/2025 11:00 AM EDT Office Visit Cardiology, [facility] [place] [address] Pennie Naranjo CRNP [address] [place] [address] 04/16/2025 2:20 PM EDT Office Visit Nephrology [address] [place] [address] Kriss Mendoza MD [address] [facility] [address] Scheduled Procedures Name Priority Associated Diagnoses Date/Ti [...] 024, 10/22/2022, 05/28/2022 CKD HGB USE SMARTSET 54486 07/03/202507/03, 07/03/2024, 10/19/2023, Additional history exists CKD PHOS USE SMARTSET 62676 07/03/2025 07/03/2024, 0 06/11/2023 Colonoscopy 02/27/2029 02/28/2024, [...] this encounter Medical Devices Implanted Type Area Collar Band Creaser Device Identifier Shelf Expiration Date Model / Serial / Lot Mesh Preshaped Large - [id number] Implanted:Qty : 1 on 12/31/2014 by Jj Weston MD at OR [facility] Right: Groin CR BARD : DAVOL 09/19/2018 [id number] / / [id number] Suture [place] Dbl Load 4.75mm - [id number] Implanted:Qty : 1 on 03/15/2020 by Kar Berry DO at OR [facility] Right: Shoulder [employer] 12/18/2021 AR-2324BCT- 2 / / [id number] documented as of this encounter Advance Directives * Full Code (Latest Code Status on File) Date Activated Date Inactivated Comments 11/23/2012 8:27 PM 11/24/2012 8:07 PM This order ref lects the patients wishes and were consensually agreed upon. Question Answer Comments Discussion of Advance Directives occurred with: Patient/Family Care Teams Principal Biostatistician Relationship Specialty Start Date End Date Sabino Izaguirre MD [address] [place] [address] [place] [address] PCP - General Family Medicine 01/21/21 documented as of this encounter
--- OUTSIDE RECORDS SUMMARY | 2024-10-31 17:31 | External Medical Summary | Summary of Care ---
Author Name Unknown Organization [facility] [address] [facility] [address] Phone [phone] Care Team Providers Care Pricer Bagger Name Role Phone Sabino Izaguirre MD Primary Care Provide r Reason for Visit * Reason Onset Date Comments Appointment 10/06/2024 Pt's Kuldeep haro calling to see if Enzo would be able to get a sooner apt with Tona or Dr Salas to be seen . The pain in now in his both hands with his left hand being the worse. Pt would like a much sooner apt than November or advise on what he can do to help with the pain. Please advise and call pt at [phone] Thank-you! Encounter Details Date Type Department Care Team (Late st Contact Info) Description 10/06/2024 Telephone Rheumatology [facility] [address] [place] [address] [place] [address] Tona Cm CRNP [address] [employer] [place] [address] Appointment (Pt's Pam calling to ... 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 08/23 [...] Impotence of organic origin 04/18/2008 Atherosclerosis of [place] co ronary artery of [place] heart with stable angina pectoris 01/01/2008 S/P angioplasty with stent 06/30/2006 Esophageal reflux 10/29/2005 documented as of this encounter (statuses as of 10/06/2024) Resolved Problems Problem Noted Date Diagnosed Date Resolved Date Prediabetes 04/29/2020 08/03/2024 Overview: Per Prediabetes protocol Cough due to RANDALL inhibitor 11/12/2014 0 01/30/2019 Hyperkalemia 11/12/2014 11/16/2018 Pre-operative cardiovascular examination 09/11/2014 11/12/2014 [employer] Other*[id number] 11/23/2012 10/27/2016 Overview (11/23/2012): Study Title: Genomic Markers for Patients with Cardiovascular Disease Project # [id number] Retail Leasing Agent: Laine Cadena MD [phone] Abnormal stress echocardiogram 11/17/2012 01/30/2019 Impotence of [...] as of this encounter (statuses as of 10/06/2024) Immunizations Name Administration Dates Next Due COVID-19 mRNA, LNP-s, No Pre serve, 2-Dose Series (Synetiq) 01/01/2022,06/19/2021,11/25/2020,10/21 COVID-19, MRNA-LNP, 24-25, P R, 30MCG/0.3ML, IM, 12YRS AND ABOVE (Synetiq-Comirnaty) 06/05/2024 COVID-19, MRNA-LNP, PF, 30 M CG/0.3 mL, 12 YRS AND ABOVE, IM (BookBottles-Comirnaty) 10/19/2023 H1N1 2009 Influenza, IM 09/24/2009 Pneumococcal [...] 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 The pain in now in his both hands with his left hand being the worse. Pt would like a much sooner apt than November or advise on what he can do to help with the pain. Should pt call PCP if he is unable to get a sooner apt? Pt would prefer seeing Tona sooner. Please advise and call pt at [phone] Thank-you! Maryann documented in this encounter Plan of Treatment Upcoming Encounters Date Type Department Care Team (Late st Contact Info) Description 10/16/2024 1:40 PM EST Office Visit Rheumatology [address] [place] [phone] Christiano Salas MD [address] [facility] [place] [address] 11/17/2024 9:00 AM EST Nurse Only Ancillary [address] [place] [address] [place], Nurse [address] [place] [address] 12/04/2024 3:00 PM EDT Office Visit Rheumatology [address] [place] [phone] Tona Cm CRNP [address] [facility] [place] [address] 01/16/2025 2:00 PM EDT Office Visit Otolaryngology [facility] 132 [facility] [place] [address] Renata Garcia PA-C 132 [facility] [place] [address] 01/31/2025 3:20 PM EDT Office Visit Family Medicine [address] [place] [phone] Sabino Izaguirre MD [address] [place] [address] [place] [address] 02/27/2025 11:00 AM EDT Office Visit Cardiology, [facility] [address] [place] [address] Pennie Naranjo CRNP 132 [place] [address] 04/16/2025 2:20 PM EDT Office Visit Nephrology [address] [place] [address] Kriss [facility]endoza MD [facility] [address] Scheduled Procedures Name Priority Associated Diagnoses Date/Ti [...] 024, 10/22/2022, 05/28/2022 CKD HGB USE SMARTSET 04088 07/03/202507/03, 07/03/2024, 10/19/2023, Additional history exists CKD PHOS USE SMARTSET 57783 07/03/2025 07/03/2024, 0 06/11/2023 Colonoscopy 02/27/2029 02/28/2024, [...] this encounter Medical Devices Implanted Type Area Nurse Healthcare Manager Device Identifier Shelf Expiration Date Model / Serial / Lot Mesh Preshaped Large - [id number] Implanted:Qty : 1 on 12/31/2014 by Jj Weston MD at OR [facility] Right: Groin CR BARD : DAVOL 09/19/2018 [id number] / / [id number] Suture [place] Dbl Load 4.75mm - [id number] Implanted:Qty : 1 on 03/15/2020 by Kar Berry DO at OR [facility] Right: Shoulder [employer] 12/18/2021 AR-2324BCT- 2 / / [id number] documented as of this encounter Advance Directives * Full Code (Latest Code Status on File) Date Activated Date Inactivated Comments 11/23/2012 8:27 PM 11/24/2012 8:07 PM This order ref lects the patients wishes and were consensually agreed upon. Question Answer Comments Discussion of Advance Directives occurred with: Patient/Family Care Teams Pricer Bagger Relationship Specialty Start Date End Date Sabino Izaguirre MD [address] [place] [address] [place] [address] PCP - General Family Medicine 01/21/21 documented as of this encounter
--- OUTSIDE RECORDS SUMMARY | 2024-10-31 17:31 | External Medical Summary | Summary of Care ---
Author Name Unknown Organization [facility] Address [address] [facility] [place] [address] Phone [phone] Care Team Providers Care Mathematical Engineer Name Role Phone Sabino Izaguirre MD Primary Care Provide r Encounter Details Date Type Department Care Team (Late st Contact Info) Description 09/21/2024 Population Health External Data Unspecified Department Allergies Active Allergy Reactions Criticality Noted Date Comments Enalapril Maleate Cough 11/12/2014 Spironolactone Itching 03/29/2024 Stopped spring 2023; took about 2 wks for itching to resolve documented as of this encounter (statuses as of 09/26/2024) Medications ASPIRIN 81 MG PO TABSIndications: S/P [...] 3 08/22/2024 12:47 PM EST 4 Active Cetirizine HCl 10 MG Oral Tablet (ZyrTEC Allergy)Indicati ons:Itching Take 1 Tablet by mouth every night at bedtime. 90 Tablet 2 04/28/2024 10:06 AM EDT 4 Active Additional Information Patient taking differently:10 mg OralDaily(AM), Reported on 08/29/2024 Triamcinolone Acetonide 0.1 % External Cream (Aristocort)Nubia cations:Contact dermatitis, unspecified contact dermatitis type, unspecified trigger Apply topically to affected area 2 times a day 80 g 1 02/03/2024 12:30 PM EDT 4 Active amLODIPine Besylate 5 MG Oral Tablet (Norvasc)Indicat ions:HTN, goal below 140/90 Take 1 Tablet by mouth 2 times a day. 180 Tablet 3 05/24/2024 6:15 AM EDT 4 Active Clopidogrel Bisulfate 75 MG Oral [...] 20 mg Oral Daily(AM), Reported on 08/29/2024 Pantoprazole Sodium 40 MG Oral Tablet Delayed Release (Protonix) TAKE ONE TABLET BY MOUTH EVERY DAY 100 Tablet 1 05/16/2024 12:24 PM EDT 4 02/21/20 25 Active Fish Oil 1000 MG Oral CapsuleIndicatio ns:Dyslipidemia, [...] days. 63 Tablet 4 10/04/19 25 Active documented as of this encounter (statuses as of 09/26/2024) Active Problems Problem Noted Date Diagnosed Date 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) 08/23/2024 prison current use of systemic steroids 08/23 Cervical [...] as of this encounter (statuses as of 09/26/2024) Resolved Problems Problem Noted Date Diagnosed Date Resolved Date Prediabetes 04/29/2020 08/03/2024 Overview: Per Prediabetes protocol Cough due to RANDALL inhibitor 11/12/2014 0 01/30/2019 Hyperkalemia 11/12/2014 11/16/2018 Pre-operative cardiovascular examination 09/11/2014 11/12/2014 [employer] Other*[id number] 11/23/2012 10/27/2016 Overview (11/23/2012): Study Title: Genomic Markers for Patients with Cardiovascular Disease Project # [id number] Crib Tender: Laine Cadena MD [phone] Abnormal stress echocardiogram 11/17/2012 01/30/2019 Impotence of organic origin 04/18/2008 11/16/2018 Chest pain 08/31/2006 01/30/2019 ADVANCE DIRECTIVE INFORMATION 08/21/2005 07/24/2024 Overview (08/21/2005): No, Advance Directive brochure given to patient at prior appointment. HIP & THIGH INJURY NOS 12/05/200401/30 Rosacea 02/23/2001 01/30/2019 Dyslipidemia, goal to be determined 08/29/2009 Overview (08/29/2009): Per Lipid Taxonomy. HYPERTENSION NOS 08/08/2009 Overview (08/08/2009): Modified per [facility] protocol #16. 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 Not on file Not on fi le documented as of this encounter Plan of Treatment Upcoming Encounters Date Type Department Care Team (Late st Contact Info) Description 11/17/2024 9:00 AM EST Nurse Only Ancillary [address] [place] [address] [place], Nurse [address] [place] [address] 12/04/2024 3:00 PM EDT Office Visit Rheumatology [address] [place] [phone] Tona Cm CRNP [address] [place] [address] [place] [address] 01/16/2025 2:00 PM EDT Office Visit Otolaryngology [facility] [address] [place] [address] Renata Garcia PA-C [address] [place] [address] 01/31/2025 3:20 PM EDT Office Visit Family Medicine [address] [place] [phone] Sabino Izaguirre MD [address] [place] [address] [place] [address] 02/27/2025 11:00 AM EDT Office Visit Cardiology, [facility] [address] [place] [address] Pennie Naranjo CRNP [address] [place] [address] 04/16/2025 2:20 PM EDT Office Visit Nephrology [address] [place] [address] Kriss Mendoza MD [address] [place] [address] Scheduled Procedures Name Priority Associated Diagnoses Date/Ti [...] 024, 10/22/2022, 05/28/2022 CKD HGB USE SMARTSET 57453 07/03/202507/03, 07/03/2024, 10/19/2023, Additional history exists CKD PHOS USE SMARTSET 94199 07/03/2025 07/03/2024, 0 06/11/2023 Colonoscopy 02/27/2029 02/28/2024, [...] this encounter Medical Devices Implanted Type Area Temp Recruiter Device Identifier Shelf Expiration Date Model / Serial / Lot Mesh Preshaped Large - [id number] Implanted:Qty : 1 on 12/31/2014 by Jj Weston MD at OR [facility] Right: Groin CR BARD : DAVOL 09/19/2018 [id number] / / [id number] Suture [place] Dbl Load 4.75mm - [id number] Implanted:Qty : 1 on 03/15/2020 by Kar Berry DO at OR [facility] Right: Shoulder [employer] 12/18/2021 AR-2324BCT- 2 / / [id number] documented as of this encounter Advance Directives * Full Code (Latest Code Status on File) Date Activated Date Inactivated Comments 11/23/2012 8:27 PM 11/24/2012 8:07 PM This order ref lects the patients wishes and were consensually agreed upon. Question Answer Comments Discussion of Advance Directives occurred with: Patient/Family Care Teams Mathematical Engineer Relationship Specialty Start Date End Date Sabino Izaguirre MD [address] [place] [address] [place] [phone] PCP - General Family Medicine 01/21/21 documented as of this encounter
--- OUTSIDE RECORDS SUMMARY | 2024-10-31 17:31 | External Medical Summary | Summary of Care ---
Author Name Unknown Organization [facility] Address [address] [place] [place] [address] Phone [phone] Care Team Providers Care Medical Secretary Receptionist Name Role Phone Milo Whittington MD Primary Care Provide r Reason for Visit * Reason Comments Medication Refill Encounter Details Date Type Department Care Team (Late st Contact Info) Description 09/26/2024 Refill Family Medicine [address] [place] [address] Milo Whittington MD [address] [place] [address] [place] [address] Itching Allergies Active Allergy Reactions Criticality Noted Date Comments Enalapril Maleate Cough 11/12/2014 Spironolactone Itching 03/29/2024 Stopped spring 2023; took about 2 wks for itching to resolve documented as of this encounter (statuses as of 09/27/2024) Medications ASPIRIN 81 MG PO TABSIndications: S/P [...] 90 Tablet 3 07/19/2024 2:21 PM EDT 02/22/20 24 Active Torsemide 5 MG Oral Tablet (Demadex)Indicat ions:Chronic kidney disease, stage 3a (HCC) TAKE ONE TABLET BY MOUTH IN THE MORNING 90 Tablet 3 07/19/2024 2:21 PM EDT 04/12/20 24 025 Active hydroCHLOROthiaz america 25 MG Oral Tablet (Hydrodiuril)Ind ications:HTN, goal below 140/90 Take 1 Tablet by mouth in the morning. 90 Tablet 3 07/19/2024 2:21 PM EDT 04/28/20 24 Active Gabapentin 100 MG Oral Capsule (Neurontin)Indic ations:Cervical radicular pain Take 1 Capsule by mouth in the morning and 1 Capsule at noon and 1 Capsule before bedtime. 270 Capsule 1 07/10/2024 2:16 PM EDT 04/28/20 24 Active Rosuvastatin Calcium 40 MG Oral Tablet (Crestor)Indicat ions:Dyslipidemi a, goal LDL below 70 TAKE ONE TABLET BY MOUTH IN THE MORNING 100 Tablet 1 08/07/2024 5:08 PM EST 04/30/20 24 025 Active predniSONE 5 MG Oral Tablet (Deltasone) Take 2 Tablets by mouth daily for 14 days, THEN 1.5 Tablets daily for 14 days, THEN 1 Tablet daily for 14 days. 63 Tablet 08/23/20 24 025 Active Cetirizine HCl 10 MG Oral Tablet (ZyrTEC Allergy)Indicati ons:Itching Take 1 Tablet by mouth every night at bedtime. 100 Tablet 1 09/27/19 25 Active Pantoprazole Sodium 40 MG Oral Tablet Delayed Release (Protonix) TAKE ONE TABLET BY MOUTH EVERY DAY 100 Tablet 1 09/27/19 25 Active Cetirizine HCl 10 MG Oral Tablet (ZyrTEC Allergy)Indicati ons:Itching Take 1 Tablet by mouth every night at bedtime. 90 Tablet 2 04/28/2024 10:06 AM EDT 12/21/19 24 025 Discontin ued(Refil l) Pantoprazole Sodium 40 MG Oral Tablet Delayed Release (Protonix) TAKE ONE TABLET BY MOUTH EVERY DAY 100 Tablet 1 05/16/2024 12:24 PM EDT 02/21/20 24 025 Discontin ued(Refil l) documented as of this encounter (statuses as of 09/27/2024) Active Problems Problem Noted Date Diagnosed Date 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) 08/23/2024 longterm current use of systemic steroids 08/23 Cervical [...] Impotence of organic origin 04/18/2008 Atherosclerosis of [place] co ronary artery of [place] heart with stable angina pectoris 01/01/2008 S/P angioplasty with stent 06/30/2006 Esophageal reflux 10/29/2005 documented as of this encounter (statuses as of 09/27/2024) Resolved Problems Problem Noted Date Diagnosed Date Resolved Date Prediabetes 04/29/2020 08/03/2024 Overview: Per Prediabetes protocol Cough due to RANDALL inhibitor 11/12/2014 0 01/30/2019 Hyperkalemia 11/12/2014 11/16/2018 Pre-operative cardiovascular examination 09/11/2014 11/12/2014 [employer] Other*[id number] 11/23/2012 10/27/2016 Overview (11/23/2012): Study Title: Genomic Markers for Patients with Cardiovascular Disease Project # [id number] Tier Over: Laine Cadena MD [phone] Abnormal stress echocardiogram 11/17/2012 01/30/2019 Impotence of [...] as of this encounter (statuses as of 09/27/2024) Immunizations Name Administration Dates Next Due COVID-19 mRNA, LNP-s, No Pre serve, 2-Dose Series ([employer]) 01/01/2022,06/19/2021,11/25/2020,10/21 COVID-19, MRNA-LNP, 24-25, P R, 30MCG/0.3ML, IM, 12YRS AND ABOVE ([employer]-ComirnatGreen [employer]) 06/05/2024 COVID-19, MRNA-LNP, PF, 30 M CG/0.3 mL, 12 YRS AND ABOVE, IM ([employer]a-Comirnaty) 10/19/2023 H1N1 2009 Influenza, IM 09/24/2009 Pneumococcal [...] No 11/15/2023 Does the household have a [facility] general hospitallar source of income? 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 Authorizing Provider: MILO WHITTINGTON Ordering User: JAMESON ALMANZAR Pantoprazole Sodium 40 MG Oral Tablet Maria Antonia*100 Ta*1 Sig: TAKE ONE TABLET BY MOUTH EVERY DAY Authorizing Provider: MILO WHITTINGTON Ordering Use r: JAMESON ALMANZAR * Telephone Encounter - Aishwarya Garcia, customer services coordinator - 09/26/2024 2:47 PM EST Pending Prescriptions: Disp Refills Cetirizine HCl 10 MG Oral Tablet (ZyrTEC A*90 Tab*2 Sig: Take 1Tablet by mouth every night at bedtime. Pantoprazole Sodium 40 MG Oral Tablet Maria Antonia*100 Ta*1 Sig: TAKE ONE TABLET BY MOUTH EVERY DAY documented in this encounter Plan of Treatment Upcoming Encounters Date Type Department Care Team (Late st Contact Info) Description 11/17/2024 9:00 AM EST Nurse Only Ancillary [address] [place] [address] Veronica Nurse [address] [place] [address] 12/04/2024 3:00 PM EDT Office Visit Rheumatology [address] [place] [phone] Tona Cm, SANTO [address] [place] [address] [place] [address] 01/16/2025 2:00 PM EDT Office Visit Otolaryngology [facility] [address] [place] [address] Renata Garcia PA-C [address] [place] [address] 01/31/2025 3:20 PM EDT Office Visit Family Medicine [address] [place] [phone] Milo Whittington MD [address] [place] [address] [place] [address] 02/27/2025 11:00 AM EDT Office Visit Cardiology, [facility] [address] [place] [address] Pennie Naranjo CRNP [address] [place] [address] 04/16/2025 2:20 PM EDT Office Visit Nephrology [address] [place] [address] Kriss Mendoza MD [address] [place], [place] [address] Scheduled Procedures Name Priority Associated Diagnoses Date/Ti [...] 024, 10/22/2022, 05/28/2022 CKD HGB USE SMARTSET 40624 07/03/202507/03, 07/03/2024, 10/19/2023, Additional history exists CKD PHOS USE SMARTSET 40055 07/03/2025 07/03/2024, 0 06/11/2023 Colonoscopy 02/27/2029 02/28/2024, [...] this encounter Medical Devices Implanted Type Area Construction Carpenter Device Identifier Shelf Expiration Date Model / Serial / Lot Mesh Preshaped Large - [id number] Implanted:Qty : 1 on 12/31/2014 by Jj Weston MD at OR [facility] Right: Groin CR BARD : DAVOL 09/19/2018 [id number] / / [id number] Suture [place] Dbl Load 4.75mm - [id number] Implanted:Qty : 1 on 03/15/2020 by Kar Berry DO at OR [facility] Right: Shoulder [employer] 12/18/2021 AR-2324BCT- 2 / / [id number] documented as of this encounter Visit Diagnoses Diagnosis Itching Unspecified pruritic disorder documented in this encounter Advance Directives * Full Code (Latest Code Status on File) Date Activated Date Inactivated Comments 11/23/2012 8:27 PM 11/24/2012 8:07 PM This order ref lects the patients wishes and were consensually agreed upon. Question Answer Comments Discussion of Advance Directives occurred with: Patient/Family Care Teams Medical Secretary Receptionist Relationship Specialty Start Date End Date Milo Whittington MD [address] [place] [address] [place] [phone] PCP - General Family Medicine 01/21/21 documented as of this encounter
--- OUTSIDE RECORDS SUMMARY | 2024-10-31 17:31 | External Medical Summary | Summary of Care ---
Author Name Unknown Organization [facility] Address [address] [place] [address] Phone [phone] Care Team Providers Care Power Screwdriver Operator Name Role Phone Sabino Izaguirre MD Primary Care Provide r Reason for Visit * Reason Onset Date Comments Home Monitoring Alarm 09/18/2024 Encounter Details Date Type Department Care Team (Late st Contact Info) Description 09/18/2024 Home Monitoring Care Coordination [address] [place], [place] [phone] Pamela Angel LPN HTN, goal below 130/80* Allergies Active Allergy Reactions Criticality Noted Date Comments Enalapril Maleate Cough 11/12/2014 Spironolactone Itching 03/29/2024 Stopped spring 2023; took about 2 wks for itching to resolve documented as of this encounter (statuses as of 09/18/2024) Medications ASPIRIN 81 MG PO TABSIndications: S/P [...] 100 Tablet 1 05/16/2024 12:24 PM EDT 06/03/202 4 02/21/20 25 Active Fish Oil 1000 [...] as of this encounter (statuses as of 09/18/2024) Active Problems Problem Noted Date Diagnosed Date 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) 08/23/2024 USP current use of systemic steroids 08/23 Cervical [...] Impotence of organic origin 04/18/2008 Atherosclerosis of [place] co ronary artery of [place] heart with stable angina pectoris 01/01/2008 S/P angioplasty with stent 06/30/2006 Esophageal reflux 10/29/2005 documented as of this encounter (statuses as of 09/18/2024) Resolved Problems Problem Noted Date Diagnosed Date Resolved Date Prediabetes 04/29/2020 08/03/2024 Overview: Per Prediabetes protocol Cough due to RANDALL inhibitor 11/12/2014 0 01/30/2019 Hyperkalemia 11/12/2014 11/16/2018 Pre-operative cardiovascular examination 09/11/2014 11/12/2014 [employer] Other*[id number] 11/23/2012 10/27/2016 Overview (11/23/2012): Study Title: Genomic Markers for Patients with Cardiovascular Disease Project # [id number] Hospital Corpsman: Laine Cadena MD [phone] Abnormal stress echocardiogram 11/17/2012 01/30/2019 Impotence of [...] as of this encounter (statuses as of 09/18/2024) Immunizations Name Administration Dates Next Due COVID-19 mRNA, LNP-s, No Pre serve, 2-Dose Series ([employer]) 01/01/2022,06/19/2021,11/25/2020,10/21 COVID-19, MRNA-LNP, 24-25, P R, 30MCG/0.3ML, IM, 12YRS AND ABOVE (Dexmo-ComirnatMicell Technologies) 06/05/2024 COVID-19, MRNA-LNP, PF, 30 M CG/0.3 mL, 12 YRS AND ABOVE, IM ([employer]nat[employer]) 10/19/2023 H1N1 2009 Influenza, IM 09/24/2009 Pneumococcal [...] 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 MTM reached out to Dr. Mendoza, but I am not able to see a response (if there is one). Steroid taper to end in 2 weeks. Recommending no changes at this time, as prednisone dose is now only 5 mg daily. Continue to monitor. Carolina Acevedo, PharmD, BCACP Clinical Pharmacist Medication Therapy Disease Management 09/18/2024, 8:56 AM * Pamela Angel LPN - 09/18/2024 8:42 AM EST Enzo Shaw [phone] Enzo Shaw is currently participating in the [employer] Hypertension Management Program and had a reading on 09/15/24 of 147/81. Pt has alerted for an Average BP over 7 days >/= 130/80 . Parameters are currently set as follows: Average BP over 7 days >/= 130/80 Singular Systolic BP Reading </= 90 or >/=180 Singular Diastolic BP Reading </= 50 or >/=120 Patient is not reporting new symptoms or concerns. Please review the recent history of home [...] 9:00 AM EST Nurse Only Ancillary [address] [place] [address] Veronica, Nurse [address] [place] [address] 12/04/2024 3:00 PM EDT Office Visit Rheumatology [address] [place] [phone] Tona Cm CRNP [address] [place] [address] [place] [address] 01/16/2025 2:00 PM EDT Office Visit Otolaryngology [facility] [address] [place] [address] Renata Garcia PA-C [place] [address] 01/31/2025 3:20 PM EDT Office Visit Family Medicine [address] [place] [phone] Sabino Izaguirre MD [address] [place] [address] [place] [address] 02/27/2025 11:00 AM EDT Office Visit Cardiology, [facility] [address] [place] [address] Pennie Naranjo CRNP [address] [place] [address] 04/16/2025 2:20 PM EDT Office Visit Nephrology [address] [place] [address] Kriss Mendoza MD [address] [facility] [place] [address] Scheduled Procedures Name Priority Associated Diagnoses Date/Ti [...] 024, 10/22/2022, 05/28/2022 CKD HGB USE SMARTSET 34034 07/03/202507/03, 07/03/2024, 10/19/2023, Additional history exists CKD PHOS USE SMARTSET 75039 07/03/2025 07/03/2024, 0 06/11/2023 Colonoscopy 02/27/2029 02/28/2024, [...] encounter Medical Devices Implanted Type Area Spring Fitter Device Identifier Shelf Expiration Date Model / Serial / Lot Mesh Preshaped Large - [id number] Implanted:Qty : 1 on 12/31/2014 by Jj Weston MD at OR [facility] Right: Groin CR BARD : DAVOL 09/19/2018 [id number] / / [id number] Suture [place] Dbl Load 4.75mm - [id number] Implanted:Qty : 1 on 03/15/2020 by Kar Berry DO at OR [facility] Right: Shoulder [employer] 12/18/2021 AR-2324BCT- 2 / / [id number] documented as of this encounter Visit Diagnoses [...] Advance Directives occurred with: Patient/Family Care Teams Power Screwdriver Operator Relationship Specialty Start Date End Date Sabino Izaguirre MD [address] [place] [address] [place] [address] PCP - General Family Medicine 01/21/21 documented as of this encounter
--- OUTSIDE RECORDS SUMMARY | 2024-10-31 17:32 | External Medical Summary | Summary of Care ---
Author Name Unknown Organization [facility] Address [address] [facility] [place] [address] Phone [phone] Care Team Providers Care Cross Tie Cutter Name Role Phone Sabino Izaguirre MD Primary Care Provide r Reason for Visit * Reason Comments Dosage Adjustment Via Phone (anticoag Cl inic) Hypertension Encounter Details Date Type Department Care Team (Late st Contact Info) Description 09/01/2024 11:30 AM [facility] Tele[facility]icine Pharmacy, [address] [place] [address] [place] [address] HTN, GOAL BELOW 140/90* Allergies Active Allergy Reactions Criticality Noted Date Comments Enalapril Maleate Cough 11/12/2014 Spironolactone Itching 03/29/2024 Stopped spring 2023; took about 2 wks for itching to resolve documented as of this encounter (statuses as of 09/01/2024) Medications ASPIRIN 81 MG PO TABSIndications: S/P [...] as of this encounter (statuses as of 09/01/2024) Active Problems Problem Noted Date Diagnosed Date 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) 08/23/2024 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 08/23 [...] Impotence of organic origin 04/18/2008 Atherosclerosis of [place] co ronary artery of [place] heart with stable angina pectoris 01/01/2008 S/P angioplasty with stent 06/30/2006 Esophageal reflux 10/29/2005 documented as of this encounter (statuses as of 09/01/2024) Resolved Problems Problem Noted Date Diagnosed Date Resolved Date Prediabetes 04/29/2020 08/03/2024 Overview: Per Prediabetes protocol Cough due to RANDALL inhibitor 11/12/2014 0 01/30/2019 Hyperkalemia 11/12/2014 11/16/2018 Pre-operative cardiovascular examination 09/11/2014 11/12/2014 [employer] Other*[id number] 11/23/2012 10/27/2016 Overview (11/23/2012): Study Title: Genomic Markers for Patients with Cardiovascular Disease Project # [id number] Internet Site Designer: Laine Cadena MD [phone] Abnormal stress echocardiogram 11/17/2012 01/30/2019 Impotence of [...] as of this encounter (statuses as of 09/01/2024) Immunizations Name Administration Dates Next Due COVID-19 mRNA, LNP-s, No Pre serve, 2-Dose Series ([employer]) 01/01/2022,06/19/2021,11/25/2020,10/21 COVID-19, MRNA-LNP, 24-25, P R, 30MCG/0.3ML, IM, 12YRS AND ABOVE ([employer]-ComirnatSelleration) 06/05/2024 COVID-19, MRNA-LNP, PF, 30 M CG/0.3 mL, 12 YRS AND ABOVE, IM ([place]-Comirnaty) 10/19/2023 H1N1 2009 Influenza, IM 09/24/2009 Pneumococcal [...] 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 Blood Pressure Goal: 130/80 mmHg Type of Alert: n/a Current Hypertension Medications: Torsemide 5 mg daily Amlodipine 5 mg BID Metoprolol ER 25 mg daily HCTZ 25 mg daily Losartan 100 mg daily Previous antihypertensive use: n/a Experiencing symptoms related to elevated BP: No BP Readings from Last 3 Encounters: 08/29/24 134/72 08/23/24 120/66 07/03/24 114/62 Pulse Readings from Last 3 Encounters: 08/29/24 50 07/03/24 48 05/17/24 71 Recent Labs Units 07/03/24 1214 03/29/24 1336 10/19/23 1225 SODIUM - [facility] mmol/L 139 142 140 POTASSIUM - [facility] mmol/L 5.5* 4.6 5.0 CHLORIDE - [facility] mmol/L 102 106 104 CO2 - [facility] mmol/L CREATININE - [facility] mg/dL 1.4* 1.4* 1.4* BUN - [facility] mg/dL 33* 36* 25* ASSESSMENT & PLAN: Systolic Diastolic Pulse Systolic Diastolic 140 71 Average 139 71 134 66 143 76 High 76 76 142 74 Low 66 66 136 70 Range 10 10 Count 5 5 Called and spoke to patient. He reports another steroid taper was prescribed by rheumatology. Taperto continue for x6 weeks. Readings remaining slightly above goal while on prednisone. Confirmed medication adherence. Patient reports feeling good. Will further discuss possible medication adjustments while on steroid with Dr Ledesma. Jazz Gibbons [facility] Clinical Pharmacist - Primary School Principal Medication Therapy Management [facility] 09/01/2024, 11:28 AM documented in this encounter Plan of Treatment Upcoming Encounters Date Type Department Care Team (Late st Contact Info) Description 09/05/2024 10:00 AM EST Office Visit Otolaryngology [facility] [address] [place] [address] Renata Garcia PA-C [address] [place] [address] 11/17/2024 9:00 AM EST Nurse Only Ancillary [address] [place] [address] [place], Nurse [facility] [address] [place] [address] [place] [address] 12/04/2024 3:00 PM EDT Office Visit Rheumatology [address] [place] [phone] Tona Cm CRNP [address] [place] [address] [place] [address] 01/31/2025 3:20 PM EDT Office Visit Family Medicine [address] [place] [phone] Sabino Izaguirre MD [address] [place] [address] [place] [address] 02/27/2025 11:00 AM EDT Office Visit Cardiology, [facility] [address] [place] [address] Pennie Naranjo CRNP [address] [place] [address] 04/16/2025 2:20 PM EDT Office Visit Nephrology [address] [place] [address] Kriss Mendoza MD [address] [place] [address] Scheduled Procedures Name Priority Associated Diagnoses Date/Ti [...] 024, 10/22/2022, 05/28/2022 CKD HGB USE SMARTSET 66136 07/03/202507/03, 07/03/2024, 10/19/2023, Additional history exists CKD PHOS USE SMARTSET 97536 07/03/2025 07/03/2024, 0 06/11/2023 Colonoscopy 02/27/2029 02/28/2024, [...] this encounter Medical Devices Implanted Type Area Principal Web Developer Device Identifier Shelf Expiration Date Model / Serial / Lot Mesh Preshaped Large - [id number] Implanted:Qty : 1 on 12/31/2014 by Jj Weston MD at OR [facility] Right: Groin CR BARD : DAVOL 09/19/2018 [id number] / / [id number] Suture [place] Dbl Load 4.75mm - [id number] Implanted:Qty : 1 on 03/15/2020 by Kar Berry DO at OR [facility] Right: Shoulder [employer] 12/18/2021 AR-2324BCT- 2 / / [id number] documented as of this encounter Visit Diagnoses Diagnosis HTN, GOAL BELOW 140/90- Primary Unspecified essential hypertension documented in this encounter Advance Directives * Full Code (Latest Code Status on File) Date Activated Date Inactivated Comments 11/23/2012 8:27 PM 11/24/2012 8:07 PM This order ref lects the patients wishes and were consensually agreed upon. Question Answer Comments Discussion of Advance Directives occurred with: Patient/Family Care Teams Cross Tie Cutter Relationship Specialty Start Date End Date Sabino Izaguirre MD [address] [place] [address] [place] [address] PCP - General Family Medicine 01/21/21 documented as of this encounter
--- OUTSIDE RECORDS SUMMARY | 2024-10-31 17:32 | External Medical Summary | Summary of Care ---
Author Name Unknown Organization [facility] Address [address] [facility] [place] [address] Phone [phone] Care Team Providers Care Accounting Methods Analyst Name Role Phone Sabino Izaguirre MD Primary Care Provide r Reason for Visit * Reason Comments Follow Up Encounter Details Date Type Department Care Team (Late st Contact Info) Description 08/29/2024 11:00 AM EST Office Visit Cardiology, [facility] [address] [place] [address] Pennie Naranjo CRNP [address] [place] [address] Atherosclerosis of [place] coronary artery of [place] heart without angina pectoris*; HTN, GOAL BELOW 140/90; Dyslipidemia, goal LDL below 70 Allergies Active Allergy Reactions Criticality Noted Date Comments Enalapril Maleate Cough 11/12/2014 Spironolactone Itching 03/29/2024 Stopped spring 2023; took about 2 wks for itching to resolve documented as of this encounter (statuses as of 08/29/2024) Medications ASPIRIN 81 MG PO TABSIndications: S/P [...] as of this encounter (statuses as of 08/29/2024) Active Problems Problem Noted Date Diagnosed Date 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 08/23 Cervical [...] Impotence of organic origin 04/18/2008 Atherosclerosis of [place] co ronary artery of [place] heart with stable angina pectoris 01/01/2008 S/P angioplasty with stent 06/30/2006 Esophageal reflux 10/29/2005 documented as of this encounter (statuses as of 08/29/2024) Resolved Problems Problem Noted Date Diagnosed Date Resolved Date Prediabetes 04/29/2020 08/03/2024 Overview: Per Prediabetes protocol Cough due to RANDALL inhibitor 11/12/2014 0 01/30/2019 Hyperkalemia 11/12/2014 11/16/2018 Pre-operative cardiovascular examination 09/11/2014 11/12/2014 [employer] Other*[id number] 11/23/2012 10/27/2016 Overview (11/23/2012): Study Title: Genomic Markers for Patients with Cardiovascular Disease Project # [id number] Interior Specialist: Laine Cadena MD [phone] Abnormal stress echocardiogram 11/17/2012 01/30/2019 Impotence of [...] as of this encounter (statuses as of 08/29/2024) Immunizations Name Administration Dates Next Due COVID-19 mRNA, LNP-s, No Pre serve, 2-Dose Series ([employer]) 01/01/2022,06/19/2021,11/25/2020,10/21 COVID-19, MRNA-LNP, 24-25, P R, 30MCG/0.3ML, IM, 12YRS AND ABOVE ([employer]) 06/05/2024 COVID-19, MRNA-LNP, PF, 30 M CG/0.3 mL, 12 YRS AND ABOVE, IM ([employer]) 10/19/2023 H1N1 2009 Influenza, IM 09/24/2009 Pneumococcal [...] 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 Hanley Cardiac Problems: CAD: status post stent to the left circumflex at [facility] in 2004. -recurrent chest pain in 2012 with abnormal stress testing, leading to PCI of the LAD with drug-eluting stent -abnormal nuclear stress test 09/11/2013 leading to repeat cardiac catheterization with patent mid LAD stent and mild instent restenosis. The distal LAD was noted to have a stenosis in a calcified area of small caliber tortuous vessel. 40% distal RCA lesion and a distal RCA branch with high-grade stenosis that was felt not to be amenable to PCI HTN Dyslipidemia Dilatation of Proximal ascending thoracic aorta 4.1cm per echo in 2019 and 2018. HPI: Enzo Shaw is a 68 year old male presents for routine cardiology follow up. He was last seen by the undersigned 01/2024 stable from a cardiac perspective. Presents today feeling well from a cardiac perspective. He does report a one time episode of chest pain with little exertion, relived with one SL NTG. None since Patient's spouse are planning to had organ for [place] to our son and grandchildren. Blood pressure today well controlled Reports compliance on all medication therapies with no untoward effects REVIEW OF SYSTEMS: See HPI for pertinent positives. All others negative other than those noted in the HPI. CONSTITUTIONAL: No change in weight, No weakness, No fatigue and No fevers, No sweats or chills. PULMONARY: No cough, sputum, or hemoptysis, No wheezing, No shortness or breath and No recent change in breathing. CARDIOVASCULAR: No chest pain, No dyspnea on exertion, No edema, No palpitations and No syncope. GASTROINTESTINAL: No abdominal pain, No change in bowel habits, No significant heartburn, No nausea, No vomiting, No diarrhea, No constipation, No blood in stools or black tarry stools. No dysphagia. HEMATOLOGIC: No abnormal bleeding and No bruising. NEUROLOGICAL: Normal balance, No headaches and No weakness. Review of patient's allergies indicates: Allergen Reactions Enalapril Maleate Cough Spironolactone Itching Stopped spring 2023; took about 2 wks for itching to resolve Current Outpatient Medications Medication Sig Dispense Refill [...] Tablet by mouth every night at bedtime. (Patient taking differently: Take 1 Tablet by mouth in the morning.) 90 Tablet 2 Triamcinolone Acetonide 0.1 % External Cream [...] mouth in the morning.) 180 Tablet 1 Pantoprazole Sodium 40 MG Oral Tablet Delayed Release (Protonix) TAKE ONE TABLET BY MOUTH EVERY [id number] Tablet 1 Fish Oil 1000 MG Oral [...] BY MOUTH IN THE MORNING 100 Tablet1 predniSONE 5 MG Oral Tablet (Deltasone) Take 2 Tablets by mouth daily for 14 days, THEN 1.5 Tabletsdaily for 14 days, THEN 1 Tablet daily for 14 days. 63 Tablet 0 No current facility-administered medications for this visit. Past Medical History: Diagnosis Date Abnormal stress echocardiogram 11/17/2012 Calculus of kidney Cervical stenosis of spinal canal 02/03/2024 moderate to severe C6-7 Chest pain 02/03/2024 probably musculoskeletal or neurologic Coronary atherosclerosis of [place] coronary artery 01/01/2008 Cough due to RANDALL inhibitor 11/12/2014 Dyslipidemia, goal to be determined GERD (gastroesophageal reflux disease) Impotence of organic origin 04/18/2008 Primary hypertension Rosacea S/P angioplasty with stent 09/10/2005 Circumflex Family History Problem Relation Name Age of Onset Hypertension Mother Heart Disorder Mother MA 60's Hypertension Father Heart Disorder Father MA 50's Heart Disorder Brother ladan Heart Disorder Brother linn Cancer Brother nasir colon Neurological Disorder Daughter joy 40 ?MS Allergies Son Allergies Son Other (Other) Son pt denies hx of skin cancer for parents Social History Socioeconomic History Marital status: Spouse name: Pam Number of children: 4 Occupational History 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 (Adult - for ages 18 years and over): No Food Insecurity: No Food Insecurity (11/15/2023) Food Insecurity Do you need food for this week? (Adult - for ages 18 years and over): No Transportation Needs: No Transportation Needs (11/15/2023) Transportation Needs Do you have trouble getting a ride to medical visits or work? (Adult - for ages 18 years and over):Never True Social Connections: Socially Integrated (11/15/2023) Social Connections How often do you feel lonely or isolated from those around you? (Adult - for ages 18 years and over): Never Housing Stability: Low Risk (11/15/2023) Housing Stability Do you currently live in a group home or have no steady place to sleep at night? (Adult - for ages 18 years and over): No Do you think you are at risk of becoming homeless? (Adult - for ages 18 years and over): No OBJECTIVE/PHYSICAL EXAMINATION: BP 134/72 | Pulse 50 | Wt 98 kg (216 lb) | BMI 31.88 kg/m | BSA 2.18 m General: No acute distress. A+Ox3. HEENT: Normocephalic. Atraumatic. PERRL. EOMI. Conjunctiva and sclera clear. NECK: No carotid bruits. No JVD. Carotid upstrokes are brisk. Heart: RRR. S1 and S2 noted. No murmur. No rubs or gallops. PMI non displaced. Lungs: Clear to auscultation. No wheezes.No rhonchi. No rales. Abdomen: Normal bowel sounds. Soft. Nontender. No masses or organomegaly. No abdominal bruits. Extremities: No edema. No clubbing or cyanosis. Pulses: radial=2/4, posterior tibial=2/4, dorsalis pedis = 2/4. NEURO: No focal deficits. PSYCH: Appropriate affect and insight. DATA Labs & Imaging Reviewed Below: Stress echo 01/2024 Interpretation Summary The examination is inadequate to evaluate the referral indication. Consider pharmacologic nuclear stress testing. No evidence of exercise-induced ischemia at 66% of the maximal, age predicted heart rate. The low heart rate response to stress reduces the sensitivity of this test for the detection of coronary artery disease or ischemia. There was attenuated heart rate response to exercise likely related to medication(s). Resting Study: The qualitative LV ejection fraction is 60-64% (normal). The left ventricular wall motion is normal. The left ventricular diastolic function is mildly abnormal (grade I). Mild aortic valve sclerosis is present. Mild aortic valve regurgitation is present. Mild tricuspid regurgitation is present. There is no evidence of pulmonary hypertension. The aortic root and proximal ascending aorta are borderline enlarged. EKG 06/15/2023, Reviewed by self showing Sinus bradycardia, moderate voltage criteria for LVH, may be normal variant. Rate 54 EKG 05/22/2021 Marked sinus bradycardia Abnormal ECG When compared with ECG of 14-MAR-2020 09:06, No significant change was found Ventricular Rate: 49 Echocardiogram 02/19/22 The primary indication after review was deemed appropriate and the examination was performed. Compared to last available study, there has been no interval change. Normal LV chamber size and wall thickness. Normal LV systolic function without regional wall motion abnormalities. Calculated LV ejection Fraction = 64% (bi-plane method of discs). Grade 1 diastolic dysfunction. No significant valvular pathology. The aortic root and proximal ascending aorta are borderline enlarged.(3.8/4.1cm) August 30, 2021 Neck CTA ([facility]): Vascular findings: Right common carotid artery: Patent without significant stenosis. There is mild atherosclerotic plaque present involving the carotid bulb. Right internal carotid artery: Patent without significant stenosis. Right vertebral artery: Patent withoutsignificant stenosis. Left common carotid artery: Patent without significant stenosis. There is mild atherosclerotic plaque present involving the carotid bulb. Left internal carotid artery: Patent without significant stenosis. Left vertebral artery: Patent without significant stenosis. Nonvascular findings: The parotid and submandibular salivary glands appear normal. There is no enlarged cervical adenopathy noted. The airway appears patent. The thyroid gland appears within normal limits. The lung apices appear within normal limits. Impression: Essentially negative CT angiogram of the neck with contrast. ASSESSMENT/PLAN: 68 year old year old male 1. Atherosclerosis of [place] coronary artery of [place] heart without angina pectoris 2. HTN, GOAL BELOW 140/90 3. Dyslipidemia, goal LDL below 70 - EKG -Patient doing well a cardiovascular, with no change or decline in his functional capacity -blood pressure is well controlled -recommend yearly lipid panel -continue amlodipine aspirin 81 mg, Plavix, HCTZ, losartan, and Crestor as per current regimen -patient also takes low-dose torsemide as prescribed by Nephrology DISPOSITION: Follow up 6 months or if symptoms worsen/fail to improve. All questions were answered to the patients satisfaction. Patient advised to report to ED with any and all emergencies. The patient agrees to the above plan and will call with additional questions or concerns. [facility] [address] I spent a total of 30 minutes on the date of service in preparation, delivery, and documentation ofthe care provided to Enzo Shaw excluding any time spent in the performance of separately billed services. This chart was completed in part utilizing [employer] Speech Voice Recognition Software. Grammatical errors, random word insertions, pronoun errors, and incomplete sentences are an occasional consequence of this system due to software limitations, ambient noise, and hardware issues. Any formal questions or concerns about the content, text, or information contained within the body of this dictation should be directly addressed to the provider for clarification. documented in this encounter Nursing Notes * Kelli Chauhan CMA - 08/29/2024 10:53 AM EST Examination Room: 4 Name: Enzo Shaw Date of : (1955) Reason for Visit: 6m Interim Hospitalization(s): none Problems/Concerns: denied Chest Pain/SOB: Had chest pain last month. Took nitro. Denied SOB [facility] is a way you can talk to your provider online through e-mail. Would you like to sign up? I can activate it for you? ALREADY ACTIVE Patient was instructed to not get up on the exam table until directed and assisted by their provider; patient is to remain seated in the chair/ wheelchair/ exam table for fall prevention and safety reasons. Patient is aware to have assistance to step down off exam table with personnel. Patient voiced full comprehension of instructions. documented in this encounter Plan of Treatment Upcoming Encounters Date Type Department Care Team (Late st Contact Info) Description 09/01/2024 11:30 AM EST Telemedicine Pharmacy, [address] [place] [id number] [place] [address] 09/05/2024 10:00 AM EST Office Visit Otolaryngology [facility] [address] [place] [address] Renata Garcia PA-C [address] [place] [address] 11/17/2024 9:00 AM EST Nurse Only Ancillary [address] [place] [address] [place], Nurse [address] [place] [address] 12/04/2024 3:00 PM EDT Office Visit Rheumatology [address] [place] [phone] Tona Cm CRNP [address] [place] [address] [place] [address] 01/31/2025 3:20 PM EDT Office Visit Family Medicine [address] [place] [phone] Sabino Izaguirre MD [address] [place] [address] [place] [address] 02/27/2025 11:00 AM EDT Office Visit Cardiology, [facility] [address] [place] [address] Pennie Naranjo CRNP [address] [place] [address] 04/16/2025 2:20 PM EDT Office Visit Nephrology [address] [place] [address] [facility]endoza [facility] [address] [facility] [address] Scheduled Orders Name Type Priority Associated Diagnoses Orde r Schedule EKG EKG Routine HTN, GOAL BELOW 140/90 Ordered: 08/29/2024 Scheduled Procedures Name Priority Associated Diagnoses Date/Ti [...] 024, 10/22/2022, 05/28/2022 CKD HGB USE SMARTSET 54036 07/03/202507/03, 07/03/2024, 10/19/2023, Additional history exists CKD PHOS USE SMARTSET 86975 07/03/2025 07/03/2024, 0 06/11/2023 Colonoscopy 02/27/2029 02/28/2024, [...] this encounter Medical Devices Implanted Type Area Imaging Science Professor Device Identifier Shelf Expiration Date Model / Serial / Lot Mesh Preshaped Large - [id number] Implanted:Qty : 1 on 12/31/2014 by Jj Weston MD at OR [facility] Right: Groin CR BARD : DAVOL 09/19/2018 [id number] / / [id number] Suture [place] Dbl Load 4.75mm - [id number] Implanted:Qty : 1 on 03/15/2020 by Kar Berry DO at OR [facility] Right: Shoulder [employer] 12/18/2021 [id number] / / [id number] documented as of this encounter Visit Diagnoses Diagnosis Atherosclerosis of [place] coronary artery of [place] heart without angina pectoris- Primary HTN, GOAL BELOW 140/90 Unspecified essential hypertension Dyslipidemia, goal LDL below 70 Other and unspecified hyperlipidemia documented in this encounter Advance Directives * Full Code (Latest Code Status on File) Date Activated Date Inactivated Comments 11/23/2012 8:27 PM 11/24/2012 8:07 PM This order ref lects the patients wishes and were consensually agreed upon. Question Answer Comments Discussion of Advance Directives occurred with: Patient/Family Care Teams Accounting Methods Analyst Relationship Specialty Start Date End Date Sabino Izaguirre MD [address] [place] [address] [place] [id number] PCP - General Family Medicine 01/21/21 documented as of this encounter"
--- OUTSIDE RECORDS SUMMARY | 2024-10-31 17:32 | External Medical Summary | Summary of Care ---
Author Name Unknown Organization [facility] Address [address] [place] [address] Phone [phone] Care Team Providers Care Property Insurance Claims Examiner Name Role Phone Sabino Izaguirre MD Primary Care Provide r Reason for Visit * Reason Comments NEW PATIENT Referred for " multi ple joint pain" * Evaluate & Treat - Unlimited Visits (Within 10 days (routine)) - Authorized Specialty Diagnoses / Procedures Referred By Naima heck Referred To Contact Rheumatology Diagnoses Myalgia Malaise and fatigue 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) ([facility]) Jaret Suarez MD [address] [place] [address] [place] [address] Phone: tel: fax: Referral ID Status Reason Start Date Expiration Date Visits Requested Visits Authorized [id number] Authorized Specialty Services Required [phone] Encounter Details Date Type Department Care Team (Late st Contact Info) Description 08/23/2024 2:40 PM EST Office Visit Rheumatology [place] [id number] [employer] [place] [address] Christiano Salas MD [facility] [employer] [place] [address] 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) ([facility])*; 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 Allergies Active Allergy Reactions Criticality Noted Date Comments Enalapril Maleate Cough 11/12/2014 Spironolactone Itching 03/29/2024 Stopped spring 2023; took about 2 wks for itching to resolve documented as of this encounter (statuses as of 08/23/2024) Medications ASPIRIN 81 MG PO TABSIndications: S/P angioplasty with stent 1 tablets daily 30 Tab 11 3 Active Additional Information Patient taking differently: (No route reported), Reported on 08/23/2024 fluticasone (FLONASE) 50 MCG/ACT nasal spray Administer [...] Patient taking differently:10 mg OralDaily(AM), Reported on 08/23/2024 Triamcinolone Acetonide 0.1 % External Cream (Aristocort)Nubia [...] differently: 20 mg Oral Daily(AM), Reported on 08/23/2024 Pantoprazole Sodium 40 MG Oral Tablet Delayed [...] as of this encounter (statuses as of 08/23/2024) Active Problems Problem Noted Date Diagnosed Date 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) 08/23/2024 [facility] current use of systemic steroids 08/23 Cervical [...] Impotence of organic origin 04/18/2008 Atherosclerosis of [place] tribe co ronary artery of [place] tribe heart with stable angina pectoris 01/01/2008 S/P angioplasty with stent 06/30/2006 Esophageal reflux 10/29/2005 documented as of this encounter (statuses as of 08/23/2024) Resolved Problems Problem Noted Date Diagnosed Date Resolved Date Prediabetes 04/29/2020 08/03/2024 Overview: Per Prediabetes protocol Cough due to RANDALL inhibitor 11/12/2014 0 01/30/2019 Hyperkalemia 11/12/2014 11/16/2018 Pre-operative cardiovascular examination 09/11/2014 11/12/2014 [employer] Other*[id number] 11/23/2012 10/27/2016 Overview (11/23/2012): Study Title: Genomic Markers for Patients with Cardiovascular Disease Project # [id number] Ticket Dispenser Changer: Laine Cadena MD [phone] Abnormal stress echocardiogram 11/17/2012 01/30/2019 Impotence of [...] as of this encounter (statuses as of 08/23/2024) Immunizations Name Administration Dates Next Due COVID-19 mRNA, LNP-s, No Pre serve, 2-Dose Series ([employer]) 01/01/2022,06/19/2021,11/25/2020,10/21 COVID-19, MRNA-LNP, 24-25, P R, 30MCG/0.3ML, IM, 12YRS AND ABOVE ([employer]-Comirnaty) 06/05/2024 COVID-19, MRNA-LNP, PF, 30 M CG/0.3 mL, 12 YRS AND ABOVE, IM (PFIZER-Comirnaty) [...] 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 PMR Referring Provider: Sabino Izaguirre MD HPI: Enzo Shaw is here at the request of Sabino Izaguirre MD for further evaluation of? PMR. Enzo Shaw pmhx is listed below. He reports that in June he started to note diffuse arthritis pains in his joints but his knees. No joint swelling. He reports that he ached in his thighs, shoulder areas. He is usually very active and this was slowing him down. He felt worse in the am and pm's. He did feel older than his stated age. He has had some headaches on both temporal areas but has a known history of headaches. These are little more persistent but not more severe than in thepast. This is not all the time. He denies any jaw claudication or vision loss. He was placed on 20 mg of prednisone and took that for several weeks and tapered off. He felt good while on prednisone he states within several days he was feeling back to normal. He has now been off prednisone for almost 2 weeks and has leaning some mild recurrence of symptoms. He has more aching in the shoulders thanhips. He denied any illness prior to his symptoms starting. He did have blood work in June that showed elevated inflammatory markers and a positive Lyme test but antibiotics did not change his symptoms. As per his chart, He did receive a COVID booster several weeks prior to his symptoms startingas he received it June 03. It seems like his symptoms started 7 to 10 days after this booster. Musculoskeletal ROS: . Abnormal: joint pain and painful muscles . Pain scale (0-10): 5 Other ROS: . Constitutional: fatigue . Head headaches . Eyes: normal . Ears, nose, throat, mouth: normal . Cardiovascular: normal . Respiratory: normal . Gastrointestinal: normal . Genitourinary: normal . Skin: normal All other ROS reviewed and negative Current Outpatient Medications Medication Sig Dispense Refill Rosuvastatin Calcium 40 MG Oral Tablet (Crestor) TAKE ONE TABLET BY MOUTH IN THE MORNING 100 Tablet1 Gabapentin 100 MG Oral Capsule (Neurontin) Take 1 Capsule by mouth in the morning and 1 Capsule at noon and 1 Capsule before bedtime. 270 Capsule 1 hydroCHLOROthiazide 25 MG Oral Tablet (Hydrodiuril) Take 1 Tablet by mouth in the morning. 90 Tablet 3 Torsemide 5 MG Oral Tablet (Demadex) TAKE ONE TABLET BY MOUTH IN THE MORNING 90 Tablet 3 amLODIPine Besylate 5 MG Oral Tablet (Norvasc) Take 1 Tablet by mouth 2 times a day. 180 Tablet 3 Losartan Potassium 100 MG Oral Tablet (Cozaar) Take 1 Tablet by mouth daily. 90 Tablet 3 Clopidogrel Bisulfate 75 MG [...] 1 Capsule before bedtime. 60 Capsule 5 Pantoprazole Sodium 40 MG Oral Tablet Delayed Release (Protonix) TAKE ONE TABLET BY MOUTH EVERY [id number] Tablet 1 Triamcinolone Acetonide 0.1 % External Cream (Aristocort) Apply topically to affected area 2 times a day 80 g 1 Cetirizine HCl 10 MG Oral Tablet (ZyrTEC Allergy) Take 1 Tablet by mouth every night at bedtime. (Patient taking differently: Take 1 Tablet by mouth in the morning.) 90 Tablet 2 Metoprolol Succinate ER 25 MG Oral Tablet Extended Release 24 Hour (toPROL XL) Take 1 Tablet by mouth at bedtime. 90 Tablet 3 ProAir HFA 108 (90 Base) MCG/ACT Inhalation Aerosol Solution Inhale 2 Puffs by mouth every 4 hours as needed for Wheezing. 18 g 2 Docusate Sodium 100 MG Oral Capsule (Colace) TAKE 1 CAPSULE BY MOUTH EVERY MORNING 90 Capsule 1 Multiple Vitamins TABS Take by mouth daily. fluticasone (FLONASE) 50 MCG/ACT nasal spray Administer 2 Sprays into each nostril daily as needed for Allergies. 1 Inhaler 5 ASPIRIN 81 MG PO TABS 1 tablets daily (Patient taking differently: No sig reported) 30 Tab 11 No current facility-administered medications for this visit. Past Medical History: Diagnosis Date Abnormal stress echocardiogram 11/17/2012 Calculus of kidney Cervical stenosis of spinal canal 02/03/2024 moderate to severe C6-7 Chest pain 02/03/2024 probably musculoskeletal or neurologic Coronary atherosclerosis of um[place] tribe coronary artery 01/01/2008 Cough due to RANDALL inhibitor 11/12/2014 Dyslipidemia, goal to be determined GERD (gastroesophageal reflux disease) Impotence of organic origin 04/18/2008 Primary hypertension Rosacea S/P angioplasty with stent 09/10/2005 Circumflex Past Surgical History: Procedure Laterality Date NATACHA RICHMOND,W/ROTATOR CUFF Right 03/15/2020 ARTHROSCOPY SHOULDER ROTATOR CUFF performed by Kar Berry DO at OR [facility] CARDIAC ANGIOPLASTY, PERCUTANEOUS, 1 ARTERY 11/23/2012 PTCA, CARDIAC ANGIOPLASTY, PERCUTANEOUS, 1 ARTERY performed by Roc Wilkinson MD at [facility] CERVICAL SPINE W/CONTRAST MATERIAL 02/04/2024 straightening of cervical lordosis, severe disc space narrowing at C6-7 COLONOSCOPY, DIAGNOSTIC (RECTUM) 08/07/2011 few diverticula COLONOSCOPY, DIAGNOSTIC (RECTUM) 02/08/2017 adenomatous & hyperplastic polyps, diverticulosis, repeat 3 yrs/COLONOSCOPY FLEXIBLE PROXIMAL DIAGNOSTIC performed by Pedro Mejia MD at ENDOSCOPY [facility] COLONOSCOPY, DIAGNOSTIC (RECTUM) 06/05/2020 hyperplastic polyp, repeat 1 yr / COLONOSCOPY FLEXIBLE PROXIMAL DIAGNOSTIC performed by Belkis Arambula DO at ENDOSCOPY [facility] COLONOSCOPY, DIAGNOSTIC (RECTUM) 02/28/2024 hemorrhoids/biopsies show adenomatous and hyperplastic polyps/recall 5 years/COLONOSCOPY FLEXIBLE PROXIMAL DIAGNOSTIC performed by Belkis Arambula DO at ENDOSCOPY [facility] CORONARY ANGIOGRAPHY W/LEFT HEART CATH 09/27/2013 CORONARY ANGIOGRAPHY W/LEFT HEART CATH performed by Yaneth Canada MD at [facility] EGD, FLEXIBLE, W/BIOPSY 04/22/2007 GERD INJECT DX/THER SUBSTANCE INTERLAMINAR CERVICAL/THORACIC W IMAGE GUIDE 10/19/2022 INJECTION SPINE LUMBAR CERVICAL OR THORACIC performed by Leif Bass DO at OR [facility] INJECT DX/THER SUBSTANCE INTERLAMINAR CERVICAL/THORACIC W IMAGE GUIDE 02/04/2023 INJECTION SPINE LUMBAR CERVICAL OR THORACIC performed by Leif Bass DO at OR [facility] OTHER (INFORMATION) 1983 hernia repair- left inguinal REMOVE TONSILS & ADENOIDS, UNDER 12 REPAIR INITIAL INGUINAL HERNIA REDUCIBLE AGE 5 OR MORE Right 12/31/2014 12/31/2014 - - right REPAIR INITIAL INGUINAL HERNIA REDUCIBLE AGE 5 OR MORE performed by Jj Weston MD at OR [facility] REPAIR OF NASAL SEPTUM SHOULDER ARTHROSCOPY SURGERY Right 03/15/2020 ARTHROSCOPY SHOULDER DISTAL CLAVICLE RESECTION performed by Kar Berry DO at [facility] SHOULDER ARTHROSCOPY/DECOMPRESSION Right 03/15/2020 ARTHROSCOPY SHOULDER SUBACROMIAL DECOMPRESSION performed by Kar Berry DO at OR [facility] UMBIL HERNIA REPAIR (INCARCERATED) AGE 5+YR N/A 09/17/2014 09/17/2014 REPAIR UMBILICAL HERNIA AGE 5 OR OVER INCARCERATED performed by Jj Weston MD at [facility] DUPLEX VENOUS UE UNILAT Left 02/04/2024 no DVT in internal jugular, subclavian, axillary or brachial veins Family History Problem Relation Name Age of Onset Hypertension Mother Heart Disorder Mother [place] 60's Hypertension Father Heart Disorder Father [place] 50's Heart Disorder Brother ladan Heart Disorder Brother linn Cancer Brother nasir colon Neurological Disorder Daughter joy 40 ?MS Allergies Son Allergies Son Other (Other) Son pt denies hx of skin cancer for parents Social History Social History Tobacco Use Smoking status: Never Smokeless tobacco: Never Vaping Use Vaping status: Never Used Substance Use Topics Alcohol use: Yes Alcohol/week: 5.8 standard drinks of alcohol Types: 7 5 oz of wine per week Comment: Once a month Drug use: No Physical Exam Filed Vitals: 08/23/24 1429 BP: 120/66 Temp: 36.5 C (97.7 F) TempSrc: Infrared Weight: 98 kg (216 lb) General: alert, no distress, and well nourished HENT: normocephalic, external ears normal, no mucosal erythema, no mucosal edema, moist mucosa, no oral ulcers Eye Exam: PERRL, EOMI, conjunctiva are pink and non-injected, sclera clear Neck: supple, no adenopathy, thyroid normal size, non-tender, without nodularity Lymph: no palpable lymphadenopathy Heart: regular rate & rhythm and no gallops Lungs: clear to auscultation , no rales, wheezes or rhonchi Abdomen: abdomen soft, non-tender, and normal bowel sounds Musculoskeletal Exam: No synovitis of the hands Normal muscle strength Good range of motion of the shoulders with mild crepitus and discomfort Assessment (M35.3) 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) (HCC) (primary encounter diagnosis) (Z79.52) [facility] current use of systemic steroids His history and exam is consistent with PMR. Will get him back on prednisone starting at 10 mg daily and taper every other week until 5 mg daily. If continues to do well with this taper were taper by1 mg every other week until off. Do wonder if his PMR syndrome was brought on by the COVID booster as we had seen several cases of PMR with initial COVID vaccines. Timing of his presentation would make sense. Plan 1. Start prednisone at 10 mg daily in take for 2 weeks then 7.5 mg daily for 2 weeks and 5 mg daily 2. Contact with any issues while tapering steroids 3. Contact at 5 mg daily with update so we can determine further taper 4. No additional labs needed at this point 5. Thank you for the consult and involving me in this patient's care. 6. Copy of today's note to Dr Izaguirre, Dr Suarez 7. Follow up in 3 months Christiano Salas MD Department of Rheumatology [facility] [phone] I spent a total of 40-54 minutes (exact time 50 mins) on the date of service in preparation, delivery, and documentation of the care provided to Enzo Shaw excluding any time spent in the performance of separately billed services. documented in this encounter Nursing Notes * Davin Patino LPN - 08/23/2024 2:27 PM EST Chief Complaint Patient presents with NEW PATIENT Referred for " multiple joint pain" documented in this encounter Plan of Treatment Upcoming Encounters Date Type Department Care Team (Late st Contact Info) Description 08/29/2024 11:00 AM EST Office Visit Cardiology, [facility] [address] [place] [address] Pennie Naranjo CRNP [address] [place] [address] 09/01/2024 11:30 AM EST Telemedicine Pharmacy, [address] [place] [address] [place] [address] 09/05/2024 10:00 AM EST Office Visit Otolaryngology [facility] [address] [place] [address] Renata Garcia PA-C [address] [place] [address] 11/17/2024 9:00 AM EST Nurse Only Ancillary [address] [place] [address] [place], Nurse Annual [address] [place] [address] 12/04/2024 3:00 PM EDT Office Visit Rheumatology [address] [place] [phone] Tona Cm CRNP [address] [place] [address] [place] [address] 01/31/2025 3:20 PM EDT Office Visit Family Medicine [address] [place] [phone] Sabino Izaguirre MD [address] [place] [address] [place] [address] 04/16/2025 2:20 PM EDT Office Visit Nephrology [address] [place] [address] Kriss Mendoza MD [address] [facility] [place], [place] [address] Scheduled Procedures Name Priority Associated Diagnoses Date/Ti [...] 024, 10/22/2022, 05/28/2022 CKD HGB USE SMARTSET 24626 07/03/202507/03, 07/03/2024, 10/19/2023, Additional history exists CKD PHOS USE SMARTSET 94725 07/03/2025 07/03/2024, 0 06/11/2023 Colonoscopy 02/27/2029 02/28/2024, [...] this encounter Medical Devices Implanted Type Area Emt Device Identifier Shelf Expiration Date Model / Serial / Lot Mesh Preshaped Large - [id number] Implanted:Qty : 1 on 12/31/2014 by Jj Weston MD at OR [facility] Right: Groin CR BARD : DAVOL 09/19/2018 [id number] / / [id number] Suture [place] Dbl Load 4.75mm - [id number] Implanted:Qty : 1 on 03/15/2020 by Kar Berry DO at OR [facility] Right: Shoulder [employer] 12/18/2021 [id number]-2324BCT- [id number] / / [id number] documented as of this encounter Visit Diagnoses Diagnosis 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) (HCC)- Primary 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 Question Answer Comments Discussion of Advance Directives occurred with: Patient/Family Care Teams Property Insurance Claims Examiner Relationship Specialty Start Date End Date Sabino Izaguirre MD [address] [place] [address] [place] [phone] PCP - General Family Medicine 01/21/21 documented as of this encounter
--- OUTSIDE RECORDS SUMMARY | 2024-10-31 17:32 | External Medical Summary | Summary of Care ---
Author Name Unknown Organization [facility] Address [address] [place] [address] Phone [phone] Care Team Providers Care Scrap Burner Name Role Phone Sabino Izaguirre MD Primary Care Provide r Reason for Visit * Reason Onset Date Comments Remote Patient Monitoring Alert 08/29/2024 Encounter Details Date Type Department Care Team (Late st Contact Info) Description 08/29/2024 Home Monitoring Care Coordination [address] [place] [address] Ashlee Sánchez LPN HTN, goal below 130/80*; HTN, GOAL BELOW 140/90 Allergies Active Allergy Reactions Criticality Noted Date Comments Enalapril Maleate Cough 11/12/2014 Spironolactone Itching 03/29/2024 Stopped spring 2023; took about 2 wks for itching to resolve documented as of this encounter (statuses as of 08/30/2024) Medications ASPIRIN 81 MG PO TABSIndications: S/P [...] as of this encounter (statuses as of 08/30/2024) Active Problems Problem Noted Date Diagnosed Date 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 08/23 Cervical [...] Impotence of organic origin 04/18/2008 Atherosclerosis of [place] co ronary artery of zuni heart with stable angina pectoris 01/01/2008 S/P angioplasty with stent 06/30/2006 Esophageal reflux 10/29/2005 documented as of this encounter (statuses as of 08/30/2024) Resolved Problems Problem Noted Date Diagnosed Date Resolved Date Prediabetes 04/29/2020 08/03/2024 Overview: Per Prediabetes protocol Cough due to RANDALL inhibitor 11/12/2014 0 01/30/2019 Hyperkalemia 11/12/2014 11/16/2018 Pre-operative cardiovascular examination 09/11/2014 11/12/2014 [employer] Other*[id number] 11/23/2012 10/27/2016 Overview (11/23/2012): Study Title: Genomic Markers for Patients with Cardiovascular Disease Project # [id number] Computer Networking Instructor Adjunct: Laine Cadena MD [phone] Abnormal stress echocardiogram 11/17/2012 01/30/2019 Impotence of [...] as of this encounter (statuses as of 08/30/2024) Immunizations Name Administration Dates Next Due COVID-19 mRNA, LNP-s, No Pre serve, 2-Dose Series ([employer]) 01/01/2022,06/19/2021,11/25/2020,10/21 COVID-19, MRNA-LNP, 24-25, P R, 30MCG/0.3ML, IM, 12YRS AND ABOVE ([employer]-ComirnatMoSo) 06/05/2024 COVID-19, MRNA-LNP, PF, 30 M CG/0.3 mL, 12 YRS AND ABOVE, IM ([employer]-ComirnatMoSo) 10/19/2023 H1N1 2009 Influenza, IM 09/24/2009 Pneumococcal [...] 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 Will plan to follow up via telemedicine visit on 09/01 as previously scheduled. Jazz Gibbons RPh, PharmD Clinical Pharmacist - Ekg Monitor Tech Medication Therapy [facility] 08/30/2024, 3:42 PM [phone] * Ashlee Sánchez LPN - 08/29/2024 4:16 PM EST Enzo Shaw [phone] Enzo Shaw is currently participating in the [employer] Hypertension Management Program and had a reading on 08/29 of 134/66. Pt has alerted for an Average BP [...] we can have them changed. Thank you! AHSLEE SÁNCHEZ LPN documented in this encounter Plan of Treatment Upcoming Encounters Date Type Department Care Team (Late st Contact Info) Description 09/01/2024 11:30 AM EST Telemedicine Pharmacy, [address] [place] [address] [place] [address] 09/05/2024 10:00 AM EST Office Visit Otolaryngology [facility] [address] [place] [address] Renata Garcia PA-C [address] [place] [address] 11/17/2024 9:00 AM EST Nurse Only Ancillary [address] [place] [address] [place], Nurse Annual [address] [place] [address] 12/04/2024 3:00 PM EDT Office Visit Rheumatology [address] [place] [phone] Tona Cm CRNP [address] [place] [address] [place] [address] 01/31/2025 3:20 PM EDT Office Visit Family Medicine [address] [place] [phone] Sabino Izaguirre MD [address] [place] [address] [place] [address] 02/27/2025 11:00 AM EDT Office Visit Cardiology, [facility] [address] [place] [address] Pennie Davis CRNP [address] [place] [address] 04/16/2025 2:20 PM EDT Office Visit Nephrology [address] [place] [address] Kriss Mendoza MD [address] [place] [address] Scheduled Procedures Name Priority Associated Diagnoses Date/Ti [...] 024, 10/22/2022, 05/28/2022 CKD HGB USE SMARTSET 89176 07/03/202507/03, 07/03/2024, 10/19/2023, Additional history exists CKD PHOS USE SMARTSET 86035 07/03/2025 07/03/2024, 0 06/11/2023 Colonoscopy 02/27/2029 02/28/2024, [...] this encounter Medical Devices Implanted Type Area Communications Representative Device Identifier Shelf Expiration Date Model / Serial / Lot Mesh Preshaped Large - [id number] Implanted:Qty : 1 on 12/31/2014 by Jj Weston MD at OR [facility] Right: Groin CR BARD : DAVOL 09/19/2018 [id number] / / [id number] S[address] Dbl Load 4.75mm - [id number] Implanted:Qty : 1 on 03/15/2020 by Kar Berry DO at OR [facility] Right: Shoulder [employer] 12/18/2021 AR-2324BCT- 2 / / [id number] documented as of this encounter Visit Diagnoses Diagnosis HTN, goal below 130/80- Primary Unspecified essential hypertension HTN, GOAL BELOW 140/90 Unspecified essential hypertension documented in this encounter Advance Directives * Full Code (Latest Code Status on File) Date Activated Date Inactivated Comments 11/23/2012 8:27 PM 11/24/2012 8:07 PM This order ref lects the patients wishes and were consensually agreed upon. Question Answer Comments Discussion of Advance Directives occurred with: Patient/Family Care Teams Scrap Burner Relationship Specialty Start Date End Date Sabino Izaguirre MD [address] [place] [address] [place] [address] PCP - General Family Medicine 01/21/21 documented as of this encounter
--- OUTSIDE RECORDS SUMMARY | 2024-10-31 17:32 | External Medical Summary | Summary of Care ---
Author Name Unknown Organization [facility] Address [address] [facility] [place] [address] Phone [phone] Care Team Providers Care Freelance Patternmaker Name Role Phone Sabino Izaguirre MD Primary Care Provide r Reason for Visit * Reason Comments Follow Up Encounter Details Date Type Department Care Team (Late st Contact Info) Description 09/05/2024 10:00 AM EST Office Visit Otolaryngology [facility] [address] [place] [address] Renata Garcia PA-C [address] [place] [address] Bilateral impacted cerumen* Allergies Active Allergy Reactions Criticality Noted Date Comments Enalapril Maleate Cough 11/12/2014 Spironolactone Itching 03/29/2024 Stopped spring 2023; took about 2 wks for itching to resolve documented as of this encounter (statuses as of 09/05/2024) Medications ASPIRIN 81 MG PO TABSIndications: S/P [...] as of this encounter (statuses as of 09/05/2024) Active Problems Problem Noted Date Diagnosed Date 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) 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 12/04 /2024 Cervical stenosis of spinal canal 02/03/2024 Overview [...] Impotence of organic origin 04/18/2008 Atherosclerosis of [place] co ronary artery of [place] heart with stable angina pectoris 01/01/2008 S/P angioplasty with stent 06/30/2006 Esophageal reflux 10/29/2005 documented as of this encounter (statuses as of 09/05/2024) Resolved Problems Problem Noted Date Diagnosed Date Resolved Date Prediabetes 04/29/2020 08/03/2024 Overview: Per Prediabetes protocol Cough due to RANDALL inhibitor 11/12/2014 0 01/30/2019 Hyperkalemia 11/12/2014 11/16/2018 Pre-operative cardiovascular examination 09/11/2014 11/12/2014 [employer] Other*[id number] 11/23/2012 10/27/2016 Overview (11/23/2012): Study Title: Genomic Markers for Patients with Cardiovascular Disease Project # [id number] Supervisor Assembly And Packing: Laine Cadena MD [phone] Abnormal stress echocardiogram 11/17/2012 01/30/2019 Impotence of [...] as of this encounter (statuses as of 09/05/2024) Immunizations Name Administration Dates Next Due COVID-19 mRNA, LNP-s, No Pre serve, 2-Dose Series ([employer]) 01/01/2022,06/19/2021,11/25/2020,10/21 COVID-19, MRNA-LNP, 24-25, P R, 30MCG/0.3ML, IM, 12YRS AND ABOVE ([email or web address]) 06/05/2024 COVID-19, MRNA-LNP, PF, 30 M CG/0.3 mL, 12 YRS AND ABOVE, IM ([email or web address]) 10/19/2023 H1N1 2009 Influenza, IM 09/24/2009 Pneumococcal [...] 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 Chief Complaint Patient presents with Follow Up Nursing Notes: Jazz Yepez LPN 09/05/24 0955 Signed Pt presents today for routine cerumen removal. Pt states 2 weeks ago he had a pain in his left ear,he believes it may have been an infection. Pt denies having drainage, tinnitus and decreased hearing. Pt states he has no further concerns HPI: Pt presents for 6 month return appointment for cerumen removal. He reports that 2 weeks ago hehad left otalgia for 2 days that resolved and then last week had left otalgia for 1 days which resolved without intervention and has not returned since then. He denies associated otorrhea or changes in hearing. Patient Active Problem List Diagnosis Esophageal reflux S/P angioplasty with stent Atherosclerosis of [place] coronary artery of [place] heart with stable angina pectoris (HCC) HTN, GOAL BELOW 140/90 Dyslipidemia, goal LDL below 70 Nodule of left lung Stable angina ([facility]) Hiatal hernia Ascending aorta dilation ([facility]) Impotence of organic origin Hx of actinic keratosis Chronic right shoulder pain Chronic neck pain Chronic kidney disease, stage 3a ([facility]) DDD (degenerative disc disease), cervical Cervical stenosis of spinal canal 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) ([facility]) snf current use of systemic steroids Current Outpatient Medications Medication Sig Dispense Refill [...] (Protonix) TAKE ONE TABLET BY MOUTH EVERY [id number] Tablet 1 Fish Oil 1000 MG Oral [...] about 2 wks for itching to resolve REVIEW OF SYSTEMS Negative for constitutional, heart, lung, liver, kidney, digestive, hematologic, neurologic, rheumatologic, or endocrine complaints except as per history of present illness and past medical history. OBJECTIVE: Temp 35.9 C (96.7 F) (Tympanic) | Wt 97.1 kg (214 lb 1.6 oz) | BMI 31.60 kg/m | BSA 2.17 m PHYSICAL EXAM: General: alert, healthy, and no distress Ears: Examination of the ears revealed that the auricles were normally formed with no lesions. The external auditory canals were cleaned of impacted cerumen from both canals with forceps- see below procedure documentation. The tympanic membranes were intact and freely mobile to pneumatoscopy without perforation or significant retraction pockets. Procedure- preformed by myself- In order to better examine the ears the patient was brought to the microscope room where his ears were examined under the operating microscope with impacted cerumen removed with forceps atraumatically. He tolerated procedure well. ASSESSMENT/PLAN: Encounter Diagnoses Name Primary? Bilateral impacted cerumen Yes Plan: Cerumen removed. He will return in 4-6 months. Renata Garcia PA-C 09/05/2024 9:57 AM documented in this encounter Nursing Notes * Jazz Yepez LPN - 09/05/2024 9:53 AM EST Pt presents today for routine cerumen removal. Pt states 2 weeks ago he had a pain in his left ear,he believes it may have been an infection. Pt denies having drainage, tinnitus and decreased hearing. Pt states he has no further concerns documented in this encounter Plan of Treatment Upcoming Encounters Date Type Department Care Team (Late st Contact Info) Description 11/17/2024 9:00 AM EST Nurse Only Ancillary [address] [place] [address] Veronica, Nurse [address] [place] [address] 12/04/2024 3:00 PM EDT Office Visit Rheumatology [address] [place] [phone] Tona Cm CRNP [address] [place] [address] [place] [address] 01/16/2025 2:00 PM EDT Office Visit Otolaryngology [facility] [address] [place] [address] Renata Garcia PA-C [address] [place] [address] 01/31/2025 3:20 PM EDT Office Visit Family Medicine [address] [place] [phone] Sabino Izaguirre MD [address] [place] [address] [place] [address] 02/27/2025 11:00 AM EDT Office Visit Cardiology, [facility] [address] [place] [address] Pennie Naranjo CRNP [address] [place] [address] 04/16/2025 2:20 PM EDT Office Visit Nephrology [address] [place] [address] Kriss Mendoza MD [address] [place] [address] Scheduled Procedures Name Priority Associated Diagnoses Date/Ti [...] 024, 10/22/2022, 05/28/2022 CKD HGB USE SMARTSET 01709 07/03/202507/03, 07/03/2024, 10/19/2023, Additional history exists CKD PHOS USE SMARTSET 13524 07/03/2025 07/03/2024, 0 06/11/2023 Colonoscopy 02/27/2029 02/28/2024, [...] this encounter Medical Devices Implanted Type Area Equip Tech Device Identifier Shelf Expiration Date Model / Serial / Lot Mesh Preshaped Large - [id number] Implanted:Qty : 1 on 12/31/2014 by Jj Weston MD at OR [facility] Right: Groin CR BARD : DAVOL 09/19/2018 [id number] / / [id number] Suture [place] Dbl Load 4.75mm - [id number] Implanted:Qty : 1 on 03/15/2020 by Kar Berry DO at OR [facility] Right: Shoulder [employer] 12/18/2021 [id number]- [id number] / / [id number] documented as of this encounter Visit Diagnoses Diagnosis Bilateral impacted cerumen- Primary Impacted cerumen documented in this encounter Advance Directives * Full Code (Latest Code Status on File) Date Activated Date Inactivated Comments 11/23/2012 8:27 PM 11/24/2012 8:07 PM This order ref lects the patients wishes and were consensually agreed upon. Question Answer Comments Discussion of Advance Directives occurred with: Patient/Family Care Teams Freelance Patternmaker Relationship Specialty Start Date End Date Sabino Izaguirre MD [address] [place] [address] [place] [phone] PCP - General Family Medicine 01/21/21 documented as of this encounter"
--- OUTSIDE RECORDS SUMMARY | 2024-10-31 17:33 | External Medical Summary | Summary of Care ---
Author Name Unknown Organization [facility] Address [address] [facility] [place] [address] Phone [phone] Care Team Providers Care Dictating Machine Mechanic Name Role Phone Sabino Izaguirre MD Primary Care Provide r Reason for Visit * Reason Comments Dosage Adjustment Via Phone (anticoag Cl inic) Hypertension Encounter Details Date Type Department Care Team (Late st Contact Info) Description 08/03/2024 3:00 PM [facility] Telemedicine Pharmacy, [address] [place] [address] [place] [address] HTN, GOAL BELOW 140/90* Allergies Active Allergy Reactions Criticality Noted Date Comments Enalapril Maleate Cough 11/12/2014 Spironolactone Itching 03/29/2024 Stopped spring 2023; took about 2 wks for itching to resolve documented as of this encounter (statuses as of 08/03/2024) Medications ASPIRIN 81 MG PO TABSIndications: S/P [...] by mouth at bedtime. 90 Tablet 3 05/08/2024 12:36 PM EDT 4 Active Cetirizine HCl 10 MG Oral Tablet (ZyrTEC Allergy)Indicati ons:Itching Take 1 Tablet by mouth every night at bedtime. 90 Tablet 2 04/28/2024 10:06 AM EDT 4 Active Additional Information Patient taking differently:10 mg OralDaily(AM), Reported on 02/23/2024 Triamcinolone Acetonide 0.1 % External Cream (Aristocort)Nubia [...] differently: 20 mg Oral Daily(AM), Reported on 02/23/2024 Pantoprazole Sodium 40 MG Oral Tablet Delayed [...] MOUTH IN THE MORNING 100 Tablet 1 05/01/2024 2:00 PM EDT 4 04/30/20 25 Active predniSONE 20 MG Oral Tablet (Deltasone)Indic ations:Myalgia,M alaise and fatigue,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) ([facility]) Take 1 Tablet by mouth in the morning. 30 Tablet 4 08/19/20 24 Active documented as of this encounter (statuses as of 08/03/2024) Active Problems Problem Noted Date Diagnosed Date Cervical stenosis of spinal canal 02/03/2024 Overview [...] Impotence of organic origin 04/18/2008 Atherosclerosis of [place] co ronary artery of elem heart with stable angina pectoris 01/01/2008 S/P angioplasty with stent 06/30/2006 Esophageal reflux 10/29/2005 documented as of this encounter (statuses as of 08/03/2024) Resolved Problems Problem Noted Date Diagnosed Date Resolved Date Prediabetes 04/29/2020 08/03/2024 Overview: Per Prediabetes protocol Cough due to RANDALL inhibitor 11/12/2014 0 01/30/2019 Hyperkalemia 11/12/2014 11/16/2018 Pre-operative cardiovascular examination 09/11/2014 11/12/2014 [employer] Other*[id number] 11/23/2012 10/27/2016 Overview (11/23/2012): Study Title: Genomic Markers for Patients with Cardiovascular Disease Project # [id number] Self Propelled Dredge Operator: Laine Cadena MD [phone] Abnormal stress echocardiogram 11/17/2012 01/30/2019 Impotence of [...] as of this encounter (statuses as of 08/03/2024) Immunizations Name Administration Dates Next Due COVID-19 mRNA, LNP-s, No Pre serve, 2-Dose Series ([employer]) 01/01/2022,06/19/2021,11/25/2020,10/21 COVID-19, MRNA-LNP, 24-25, P R, 30MCG/0.3ML, IM, 12YRS AND ABOVE ([employer]) 06/05/2024 COVID-19, MRNA-LNP, PF, 30 M CG/0.3 mL, 12 YRS AND ABOVE, IM ([employer]) 10/19/2023 H1N1 2009 Influenza, IM 09/24/2009 Pneumococcal [...] 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 Blood Pressure Goal: 130/80 mmHg Type of Alert: n/a BP check in Current Hypertension Medications: Torsemide 5 mg daily Amlodipine 5 mg BID Metoprolol ER 25 mg daily HCTZ 25 mg daily Losartan 100 mg daily Previous antihypertensive use: n/a Experiencing symptoms related to elevated BP: No BP Readings from Last 3 Encounters: 07/03/24 114/62 05/17/24 132/70 03/29/24 127/67 Pulse Readings from Last 3 Encounters: 07/03/24 48 05/17/24 71 03/29/24 61 Recent Labs Units 07/03/24 1214 03/29/24 1336 10/19/23 1225 SODIUM - [facility] mmol/L 139 142 140 POTASSIUM - [facility] mmol/L 5.5* 4.6 5.0 CHLORIDE - [facility] mmol/L 102 106 104 CO2 - [facility] mmol/L CREATININE - [facility] mg/dL 1.4* 1.4* 1.4* BUN - [facility] mg/dL 33* 36* 25* ASSESSMENT & PLAN: Systolic Diastolic Pulse Systolic Diastolic 137 75 Average 136 72 134 68 129 69 High 75 75 132 70 Low 68 68 144 75 142 74 Range 7 7 Count 6 6 Called and spoke to patient. Continuing on steroids at this time. Expected for another x2 weeks. Notes to improvement in symptoms. Upcoming appointment with rheumatology at the beginning of August. BP readings staying slightly above goal, but overall controlled on prednisone. Placed another call to f/u x1 week after steroids are to be completed. Patient expressed understanding and is agreeable to contact clinic sooner with any questions or concerns. Jazz Gibbons [facility] Clinical Pharmacist - Caterers Helper Medication Therapy Management [facility] 08/03/2024, 3:02 PM documented in this encounter Plan of Treatment Upcoming Encounters Date Type Department Care Team (Late st Contact Info) Description 08/23/2024 2:40 PM EST Office Visit Rheumatology [address] [place] [address] Chrisitano Salas MD [address] [place] [address] [place] [address] 08/29/2024 11:00 AM EST Office Visit Cardiology, [facility] [address] [place] [address] Pennie Naranjo CRNP [address] [place] [address] 09/01/2024 11:30 AM EST Telemedicine Pharmacy, [address] [place] [address] [place] [address] 09/05/2024 10:00 AM EST Office Visit Otolaryngology [facility] [address] [place] [address] Renata Garcia PA-C [address] [place] [address] 11/17/2024 9:00 AM EST Nurse Only Ancillary [address] [place] [address] Veronica, Nurse [facility] [address] [place] [address] [place] [address] 01/31/2025 3:20 PM EDT Office Visit Family Medicine [address] [place] [phone] Sabino Izaguirre MD [address] [place] [address] [place] [address] 04/16/2025 2:20 PM EDT Office Visit Nephrology [address] [place] [address] Kriss Mendoza MD [address] [facility] [place] [address] Scheduled Procedures Name Priority Associated Diagnoses Date/Ti [...] 024, 10/22/2022, 05/28/2022 CKD HGB USE SMARTSET 87814 07/03/202507/03, 07/03/2024, 10/19/2023, Additional history exists CKD PHOS USE SMARTSET 95926 07/03/2025 07/03/2024, 0 06/11/2023 Colonoscopy 02/27/2029 02/28/2024, [...] this encounter Medical Devices Implanted Type Area Tool Operator Device Identifier Shelf Expiration Date Model / Serial / Lot Mesh Preshaped Large - [id number] Implanted:Qty : 1 on 12/31/2014 by Jj Weston MD at OR [facility] Right: Groin CR BARD : DAVOL 09/19/2018 [id number] / / [id number] Suture [place] Dbl Load 4.75mm - [id number] Implanted:Qty : 1 on 03/15/2020 by Kar Berry DO at OR [facility] Right: Shoulder [employer] 12/18/2021 [id number]- 2 / / [id number] documented as of this encounter Visit Diagnoses [...] Advance Directives occurred with: Patient/Family Care Teams Dictating Machine Mechanic Relationship Specialty Start Date End Date Sabino Izaguirre MD [address] [place] [address] [place] [phone] PCP - General Family Medicine 01/21/21 documented as of this encounter
--- OUTSIDE RECORDS SUMMARY | 2024-10-31 17:33 | External Medical Summary | Summary of Care ---
Author Name Unknown Organization [facility] Address [address] [place] [address] Phone [phone] Care Team Providers Care Professor Of Communication Arts Name Role Phone Sabino Izaguirre MD Primary Care Provide r Reason for Visit * Reason Comments Acute Encounter Details Date Type Department Care Team (Late st Contact Info) Description 07/03/2024 11:40 AM EDT Office Visit Family Medicine [address] [phone] Jaret Suarez MD [address] [place] [address] [place] [address] Myalgia*; Malaise and fatigue; Muscle weakness; Chronic kidney disease, stage 3a (HCC) Allergies Active Allergy Reactions Criticality Noted Date Comments Enalapril Maleate Cough 11/12/2014 Spironolactone Itching 03/29/2024 Stopped spring 2023; took about 2 wks for itching to resolve documented as of this encounter (statuses as of 07/03/2024) Medications Medication Sig Dispensed Refills Start Date End Date Status ASPIRIN 81 MG PO TABSIndications:S/ P angioplasty with stent 1 tablets daily 30 Tab 11 11/24/2012 Active Additional Information Patient taking differently: (No route reported), Reported on 09/25/2022 fluticasone (FLONASE) 50 MCG/ACT nasal spray Administer 2 Sprays into each nostril daily as needed for Allergies. 1 Inhaler 5 11/02/2016 Active Multiple Vitamins TABS Take by mouth daily. Active Docusate Sodium 100 MG Oral Capsule (Colace)Indication s:Constipation, unspecified constipation type TAKE 1 CAPSULE BY MOUTH EVERY MORNING 90 Capsule 1 05/27/2022 Active ProAir HFA 108 (90 Base) MCG/ACT Inhalation Aerosol SolutionIndication s:Bronchitis, complicated Inhale 2 Puffs by mouth every 4 hours as needed for Wheezing. 18 g 2 10/06/2022 Active Metoprolol Succinate ER 25 MG Oral Tablet Extended Release 24 Hour (toPROL XL)Indications:Pal pitations,Stable angina (HCC) Take 1 Tablet by mouth at bedtime. 90 Tablet 3 11/04/2023 Active Cetirizine HCl 10 MG Oral Tablet (ZyrTEC Allergy)Indication s:Itching Take 1 Tablet by mouth every night at bedtime. 90 Tablet 2 12/21/2023 Active Additional Information Patient taking differently:10 mg OralDaily(AM), Reported on 02/23/2024 Triamcinolone Acetonide 0.1 % External Cream (Aristocort)Indica tions:Contact dermatitis, unspecified contact dermatitis type, unspecified trigger Apply topically to affected area 2 times a day 80 g 1 01/04/2024 Active amLODIPine Besylate 5 MG Oral Tablet (Norvasc)Indicatio ns:HTN, goal below 140/90 Take 1 Tablet by mouth 2 times a day. 180 Tablet 3 02/22/2024 Active Clopidogrel Bisulfate 75 MG Oral Tablet (pLAVix)Indication s:S/P angioplasty with stent TAKE ONE TABLET BY MOUTH IN THE MORNING 100 Tablet 1 02/21/2024 Active Famotidine 20 MG Oral Tablet (Pepcid)Indication s:Gastroesophageal reflux disease without esophagitis TAKE ONE TABLET BY MOUTH TWICE A DAY 180 Tablet 1 02/21/2024 02/20/2025 Active Additional Information Patient taking differently: 20 mg Oral Daily(AM), Reported on 02/23/2024 Pantoprazole Sodium 40 MG Oral Tablet Delayed Release (Protonix) TAKE ONE TABLET BY MOUTH EVERY DAY 100 Tablet 1 02/21/2024 02/20/2025 Active Fish Oil 1000 MG Oral CapsuleIndications :Dyslipidemia, goal LDL below 160 Take 1 Capsule by mouth in the morning and 1 Capsule before bedtime. 60 Capsule 5 02/21/2024 Active Losartan Potassium 100 MG Oral Tablet (Cozaar)Indication s:Chronic kidney disease, stage 3a (HCC) Take 1 Tablet by mouth daily. 90 Tablet 3 02/22/2024 Active Torsemide 5 MG Oral Tablet (Demadex)Indicatio ns:Chronic kidney disease, stage 3a (HCC) TAKE ONE TABLET BY MOUTH IN THE MORNING 90 Tablet 3 04/12/2024 04/12/2025 Active hydroCHLOROthiazid e 25 MG Oral Tablet (Hydrodiuril)Indic ations:HTN, goal below 140/90 Take 1 Tablet by mouth in the morning. 90 Tablet 3 04/28/2024 Active Gabapentin 100 MG Oral Capsule (Neurontin)Indicat ions:Cervical radicular pain Take 1 Capsule by mouth in the morning and 1 Capsule at noon and 1 Capsule before bedtime. 270 Capsule 1 04/28/2024 Active Rosuvastatin Calcium 40 MG Oral Tablet (Crestor)Indicatio ns:Dyslipidemia, goal LDL below 70 TAKE ONE TABLET BY MOUTH IN THE MORNING 100 Tablet 1 04/30/2024 04/30/2025 Active documented as of this encounter (statuses as of 07/03/2024) Active Problems Problem Noted Date Diagnosed Date Cervical stenosis of spinal canal 02/03/2024 Overview: moderate to severe C6-7 Chronic kidney disease, [...] Impotence of organic origin 04/18/2008 Atherosclerosis of [place] co ronary artery of [place] heart with stable angina pectoris 01/01/2008 S/P angioplasty with stent 06/30/2006 Esophageal reflux 10/29/2005 ADVANCE DIRECTIVE INFORMATION 08/21/2005 Overview: No, Advance Directive brochure given to patient at prior appointment. documented as of this encounter (statuses as of 07/03/2024) Resolved Problems Problem Noted Date Diagnosed Date Resolved Date Cough due to RANDALL inhibitor 11/12/2014 0 01/30/2019 Hyperkalemia 11/12/2014 11/16/2018 Pre-operative cardiovascular examination 09/11/2014 11/12/2014 [employer] Other*[id number] 11/23/2012 10/27/2016 Overview: Study Title: Genomic Markers for Patients with Cardiovascular Disease Project # [id number] Plow Mechanic: Laine Cadena MD [phone] Abnormal stress echocardiogram 11/17/2012 01/30/2019 Impotence of organic origin 04/18/2008 11/16/2018 Chest pain 08/31/2006 01/30/2019 HIP & THIGH INJURY NOS 12/05/200401/30 Rosacea 02/23/2001 01/30/2019 Dyslipidemia, goal to be determined 08/29/2009 Overview: Per Lipid Taxonomy. HYPERTENSION NOS 08/08/2009 Overview: Modified per HTN protocol #16. documented as of this encounter (statuses as of 07/03/2024) Immunizations Name Administration Dates Next Due COVID-19 mRNA, LNP-s, No Pre serve, 2-Dose Series ([employer]) 01/01/2022,06/19/2021,11/25/2020,10/21 COVID-19, MRNA-LNP, 23-24, P F, 30 MCG/0.3 mL, 12 YRS AND ABOVE, IM ([employer]-Comirnaty) 10/19/2023 COVID-19, MRNA-LNP, 24-25, P R, 30MCG/0.3ML, IM, 12YRS AND ABOVE ([employer]Comirnat[employer]) 06/05/2024 H1N1 2009 Influenza, IM 09/24/2009 Pneumococcal Conjugate [...] 11/15/2023 Does the household have a re lar source of income? (Household - for ages [...] Sign Reading Time Taken Comments Blood Pressure 114/62 07/03/2024 11:38 AM EDT Pulse 48 07/03/2024 11:38 AM EDT Temperature 36.7 C (98 F) 07/03/2024 11:38 AM EDT Respiratory Rate - - Oxygen Saturation 95% 07/03/2024 11:38 AM EDT Inhaled Oxygen Concentration - - Weight 95.3 kg (210 lb) 07/03/2024 11:38 AM EDT Height - - Body Mass Index 30.99 04/04/2024 11:33 AM EDT documented in this encounter Progress Notes * Jaret Suarez MD - 07/03/2024 11:44 AM EDT Subjective: Enzo Shaw is a 68 year old male. Chief Complaint Patient presents with Acute HPI: Brief Clinical History Mr. Shaw is a 68 year old male last seen in Family Medicine [facility] on 05/17/2024 by Sabino Izaguirre He has a h/o the following chronic conditions indicated on the problem list: Chronic Conditions Atherosclerosis of houl[place] coronary artery of [place] heart with stable angina pectoris (HCC) Stable angina (HCC) Patient of Dr. Izaguirre here with his for an acute visit. Has not been feeling well for 3 weeks. Started with severe pain in his hips and then moved to his shoulders. Has not had a fever or rashes. Has been much more tired than usual. Has headaches and no change in them. No temporal headache or loss of vision. Is retired but stays very active and has not been able to do things around the house the last few weeks. He forced himself to work on a barn lastweek but was painful. Has a hard time standing up if he squats down. Having a hard time lifting hishands overhead. The pain seems to be in the muscles of his upper arms and thighs but they are not tender to touch. He is also a [place] and [place]. No known tick bites. Went to chiropractor right before this started and at first thought it was due to that but has beengetting worse. Has had issues with his shoulders in the past and has had injections but did not feel like this. Has never had trouble with his hips. Had some blisters in his mouth but they are gone now. Results for orders placed or performed in visit on 04/18/24 URORISK(R) DIAGNOSTIC PROFILE Result Value Ref Range Total Urine Volume 2.22 >2.00 L/day PH Urine 5.4 (L) 5.5 - 7.0 Calcium, 24 Hour Urine 32 <250.0 mg/day Oxalate, 24 Hour Urine 36 <45 mg/day Uric Acid, 24 Hour Urine 593 <700 mg/day Citric Acid, 24 Hour Urine 145 (L) >320 mg/day Sodium, 24 Hour Urine 108 <200 mEq/day Sulfate, 24 Hour Urine 20 <30 mmol/day Phosphorus, 24 Hour Urine 870 <1100 mg/day Magnesium, 24 Hour Urine 67 >60.0 mg/day Potassium, 24 Hour Urine 67 19 - 135 mEq/day Creatinine, 24 Hour Urine 1474 800 - 2000 mg/day Calcium Oxalate 0.33 <2.00 CALC Brushite 0.05 <2.00 CALC Sodium Urate 0.62 <2.00 CALC Uric Acid 2.86 (H) <2.00 CALC The Patient Has: SEE BELOW CALC Supersaturation Index: SEE BELOW Suspected Problem Is: SEE BELOW CALC Comments DNR *Note: Due to a large number of results and/or encounters for the requested time period, some results have not been displayed. A complete set of results can be found in Results Review. PHM: Patient Active Problem List Diagnosis ADVANCE DIRECTIVE INFORMATION Esophageal reflux S/P angioplasty with stent Atherosclerosis of houl[place] coronary artery of h[place] heart with stable angina pectoris (HCC) HTN, GOAL BELOW 140/90 Dyslipidemia, goal LDL below 70 Nodule of left lung Stable angina (HCC) Hiatal hernia Ascending aorta dilation (HCC) Impotence of organic origin Prediabetes Hx of actinic keratosis Chronic right shoulder pain Chronic neck pain Chronic kidney disease, stage 3a (HCC) DDD (degenerative disc disease), cervical Cervical stenosis of spinal canal Current Outpatient Medications Medication Sig Dispense Refill [...] (Protonix) TAKE ONE TABLET BY MOUTH EVERY [id number] Tablet 1 Fish Oil 1000 MG Oral [...] BY MOUTH IN THE MORNING 100 Tablet1 No current facility-administered medications for this visit. Past Medical History: Diagnosis Date Abnormal stress echocardiogram 11/17/2012 Calculus of kidney Cervical stenosis of spinal canal 02/03/2024 moderate to severe C6-7 Chest pain 02/03/2024 probably musculoskeletal or neurologic Coronary atherosclerosis of [place] coronary artery 01/01/2008 Cough due to RANDALL inhibitor 11/12/2014 Dyslipidemia, goal to be determined GERD (gastroesophageal reflux disease) Impotence of organic origin 04/18/2008 Primary hypertension Rosacea S/P angioplasty with stent 09/10/2005 Circumflex Past Surgical History: Procedure Laterality Date ARTHNATACHA Felix,W/ROTATOR CUFF Right 03/15/2020 ARTHROSCOPY SHOULDER ROTATOR CUFF performed by Kar Berry DO at OR [facility] CARDIAC ANGIOPLASTY, PERCUTANEOUS, 1 ARTERY 11/23/2012 PTCA, CARDIAC ANGIOPLASTY, PERCUTANEOUS, 1 ARTERY performed by Roc Wilkinson MD at [facility] CERVICAL SPINE W/CONTRAST MATERIAL 02/04/2024 straightening of cervical lordosis, severe disc space narrowing at C6-7 COLONOSCOPY, DIAGNOSTIC (RECTUM) 08/07/2011 few diverticula COLONOSCOPY, DIAGNOSTIC (RECTUM) 02/08/2017 adenomatous & hyperplastic polyps, diverticulosis, repeat 3 yrs/COLONOSCOPY FLEXIBLE PROXIMAL DIAGNOSTIC performed by Pedro Mejia MD at ENDOSCOPY [facility] COLONOSCOPY, DIAGNOSTIC (RECTUM) 06/05/2020 hyperplastic polyp, repeat 1 yr / COLONOSCOPY FLEXIBLE PROXIMAL DIAGNOSTIC performed by Belkis Arambula DO at ENDOSCOPY [facility] COLONOSCOPY, DIAGNOSTIC (RECTUM) 02/28/2024 hemorrhoids/biopsies show adenomatous and hyperplastic polyps/recall 5 years/COLONOSCOPY FLEXIBLE PROXIMAL DIAGNOSTIC performed by Belkis Arambula DO at ENDOSCOPY [facility] CORONARY ANGIOGRAPHY W/LEFT HEART CATH 09/27/2013 CORONARY ANGIOGRAPHY W/LEFT HEART CATH performed by Yaneth Canada MD at [facility]AC [facility] [place] [facility] EGD, FLEXIBLE, W/BIOPSY 04/22/2007 GERD INJECT DX/THER SUBSTANCE INTERLAMINAR CERVICAL/THORACIC W IMAGE GUIDE 10/19/2022 INJECTION SPINE LUMBAR CERVICAL OR THORACIC performed by Leif Bass DO at OR [facility] INJECT DX/THER SUBSTANCE INTERLAMINAR CERVICAL/THORACIC W IMAGE GUIDE 02/04/2023 INJECTION SPINE LUMBAR CERVICAL OR THORACIC performed by Leif Bass DO at OR [facility] OTHER (INFORMATION) 1983 hernia repair- left inguinal REMOVE TONSILS & ADENOIDS, UNDER 12 REPAIR INITIAL INGUINAL HERNIA REDUCIBLE AGE 5 OR MORE Right 12/31/2014 12/31/2014 - - right REPAIR INITIAL INGUINAL HERNIA REDUCIBLE AGE 5 OR MORE performed by Jj Weston MD at OR [facility] REPAIR OF NASAL SEPTUM SHOULDER ARTHROSCOPY SURGERY Right 03/15/2020 ARTHROSCOPY SHOULDER DISTAL CLAVICLE RESECTION performed by Kar Berry DO at [facility] SHOULDER ARTHROSCOPY/DECOMPRESSION Right 03/15/2020 ARTHROSCOPY SHOULDER SUBACROMIAL DECOMPRESSION performed by aKr Berry DO at OR 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 (Household - for ages 0-17 years): Not on file Does your family need food this week? (Household - for ages 0-17 years): Not on file Do you always have enough food for your family? (Household - for ages 0-17 years): Not on file Transportation Needs: No Transportation Needs (11/15/2023) Transportation [...] Stability Do you currently live in a correction or have no steady place to sleep [...] - for ages0-17 years): Not on file Review of patient's allergies indicates: Allergen Reactions Enalapril Maleate Cough Spironolactone Itching Stopped spring 2023; took about 2 wks for itching to resolve Objective: BP 114/62 | Pulse 48 | Temp 36.7 C (98 F) (Tympanic) | Wt 95.3 kg (210 lb) | SpO2 95% | BMI 30.99 kg/m | BSA 2.15 m Physical Exam: General: alert, no distress, well nourished, well developed, and appears tired Head: Normocephalic, No masses, lesions, tenderness or abnormalities. No temporal tenderness Eye Exam: PERRLA, extraocular movements intact, conjunctiva are pink and non- injected, sclera clear Ears: External ears normal, Canals clear, TM's Normal Nose: no mucosal erythema, no mucosal edema, no purulent discharge Oropharynx: no exudate, no erythema, lips, buccal mucosa, and tongue normal, and mucous membranes are moist Neck: supple, no adenopathy, no bruits Heart: regular rate & rhythm, no murmur, and no gallops Lungs: chest symmetric with normal AP diameter, no chest deformities noted, no chest wall tenderness, lungs clear to auscultation Extremities: no joint deformities, effusion, or inflammation, no edema, no clubbing, no cyanosis, no tenderness to palpation of upper arms or thighs. Does have limited ROM of bilateral upper arms andhas pain with ROM. Has some pain in bilateral lateral hips with manipulation of the hips Neuro Exam: alert & oriented x 3 with fluent speech, no focal motor/sensory deficits Extensive ROS Constitutional (f/c/wt/vision/hearing): Negative Resp (cough/sob/alvarado): Negative CV (cp/palp/fluttering/diaphoresis/alvarado/pnd):Negative GI (n/v/d/hrtburn): Negative Endo (hair/cold or heat intol/ 3 p's): Negative Neuro (shaking/weak/fatigu/parasthesi/): see above hpi Skin (rash/easy bruis/xerosis): Negative Psy (si/hi/halluc/): Negative (nocturia/hesit/drib/sexual review): Negative Lymph (swollen glands/b sx's/: Negative ASSESSMENT: Myalgia (Primary) - CBC WITH WBC DIFFERENTIAL AND ANEMIA REFLEX WORKUP; Future; Expected date: 07/03/2024 - COMPREHENSIVE METABOLIC PANEL; Future; Expected date: 07/03/2024 - ERYTHROCYTE SEDIMENTATION RATE (ESR); Future; Expected date: 07/03/2024 - CRP (INFLAMMATORY MARKER); Future; Expected date: 07/03/2024 - LYME DISEASE ANTIBODY SCREEN WITH REFLEX TO CONFIRMATION; Future; Expected date: 07/03/2024 - ANAPLASMA PHAGOCYTOPHILUM DNA, QL REAL-TIME PCR; Future; Expected date: 07/03/2024 Malaise and fatigue - CBC WITH WBC DIFFERENTIAL AND ANEMIA REFLEX WORKUP; Future; Expected date: 07/03/2024 - COMPREHENSIVE METABOLIC PANEL; Future; Expected date: 07/03/2024 - ERYTHROCYTE SEDIMENTATION RATE (ESR); Future; Expected date: 07/03/2024 - CRP (INFLAMMATORY MARKER); Future; Expected date: 07/03/2024 - LYME DISEASE ANTIBODY SCREEN WITH REFLEX TO CONFIRMATION; Future; Expected date: 07/03/2024 - ANAPLASMA PHAGOCYTOPHILUM DNA, QL REAL-TIME PCR; Future; Expected date: 07/03/2024 Muscle weakness - CBC WITH WBC DIFFERENTIAL AND ANEMIA REFLEX WORKUP; Future; Expected date: 07/03/2024 - COMPREHENSIVE METABOLIC PANEL; Future; Expected date: 07/03/2024 - ERYTHROCYTE SEDIMENTATION RATE (ESR); Future; Expected date: 07/03/2024 - CRP (INFLAMMATORY MARKER); Future; Expected date: 07/03/2024 - LYME DISEASE ANTIBODY SCREEN WITH REFLEX TO CONFIRMATION; Future; Expected date: 07/03/2024 - ANAPLASMA PHAGOCYTOPHILUM DNA, QL REAL-TIME PCR; Future; Expected date: 07/03/2024 Chronic kidney disease, stage 3a (HCC)--follows with Dr. Mendoza. Is due for phosphorus so will add to labs being obtained today. - PHOSPHORUS - COMPREHENSIVE METABOLIC PANEL; Future; Expected date: 07/03/2024 - ERYTHROCYTE SEDIMENTATION RATE (ESR); Future; Expected date: 07/03/2024 - CRP (INFLAMMATORY MARKER); Future; Expected date: 07/03/2024 - LYME DISEASE ANTIBODY SCREEN WITH REFLEX TO CONFIRMATION; Future; Expected date: 07/03/2024 - ANAPLASMA PHAGOCYTOPHILUM DNA, QL REAL-TIME PCR; Future; Expected date: 07/03/2024 PLAN: Continue present medication(s): Schedule labs: CBC w/diff, CMP, phosphorus, ESR, CRP, anaplasmosis, and Lyme titer. Patient education: Discussed labs and symptoms. Strongly suggestive of PMR. Will also rule out tickborne illness based on symptoms and frequent tick exposure. Has not had a known tick bite, rash, orfever. Feel PRM more likely. Discussed headaches and to monitor for temporal headaches or vision changes. If ESR/CRP high and Lyme negative. Will start prednisone and refer to rheumatology. Follow up: As scheduled. Jaret Suarez MD documented in this encounter Nursing Notes * Kyara Smith LPN - 07/03/2024 11:37 AM EDT 3 weeks ago- Hips, arms, shoulders - severe joint pain Cannot walk right Loss of ROM in right arm Has had fever blisters in mouth too, they're mostly gone now No rashes or known tick bites, but [place] in [place] a lot. Not sleeping well documented in this encounter Plan of Treatment Upcoming Encounters Date Type Department Care Team (Late st Contact Info) Description 08/29/2024 11:00 AM EST Office Visit Cardiology, [facility] [address] [place] [phone] Pennie Naranjo CRNP [address] [place] [address] 09/05/2024 10:00 AM EST Office Visit Otolaryngology [facility] [address] [place] [phone] Renata Garcia PA-C [address] [place] [address] 11/17/2024 9:00 AM EST Nurse Only Ancillary [address] [place] [address] [place], Nurse [address] [place] [address] 01/31/2025 3:20 PM EDT Office Visit Family Medicine [address] [place] [phone] Sabino Izaguirre MD [address] [place] [address] [place] [id number] Pending Results Name Type Priority Associated Diagnoses Date /Time PHOSPHORUS Lab Routine Chronic kidney disease, stage 3a (HCC) 07/03/2024 12:14 PM EDT CBC WITH WBC DIFFERENTIAL AND ANEMIA REFLEX WORKUP Lab Routine Myalgia Malaise and fatigue Muscle weakness 07/03/2024 12:14 PM EDT COMPREHENSIVE METABOLIC PANEL Lab Routine Myalgia Malaise and fatigue Muscle weakness Chronic kidney disease, stage 3a (HCC) 07/03/2024 12:14 PM EDT ERYTHROCYTE SEDIMENTATION RATE (ESR) Lab Routine Myalgia Malaise and fatigue Muscle weakness Chronic kidney disease, stage 3a (HCC) 07/03/2024 12:14 PM EDT CRP (INFLAMMATORY MARKER) Lab Routine Myalgia Malaise and fatigue Muscle weakness Chronic kidney disease, stage 3a (HCC) 07/03/2024 12:14 PM EDT LYME DISEASE ANTIBODY SCREEN WITH REFLEX TO CONFIRMATION Lab Routine Myalgia Malaise and fatigue Muscle weakness Chronic kidney disease, stage 3a (HCC) 07/03/2024 12:14 PM EDT ANAPLASMA PHAGOCYTOPHILUM DNA, QL REAL-TIME PCR Lab Routine Myalgia Malaise and fatigue Muscle weakness Chronic kidney disease, stage 3a (HCC) 07/03/2024 12:14 PM EDT Scheduled Orders Name Type Priority Associated Diagnoses Orde r Schedule CBC WITH WBC DIFFERENTIAL AND ANEMIA REFLEX WORKUP Lab Routine Myalgia Malaise and fatigue Muscle weakness Expected: 07/03/2024 (Approximate), Expires: 07/03/2025 COMPREHENSIVE METABOLIC PANEL Lab Routine Myalgia Malaise and fatigue Muscle weakness Chronic kidney disease, stage 3a (HCC) Expected: 07/03/2024 (Approximate), Expires: 07/03/2025 ERYTHROCYTE SEDIMENTATION RATE (ESR) Lab Routine Myalgia Malaise and fatigue Muscle weakness Chronic kidney disease, stage 3a (HCC) Expected: 07/03/2024 (Approximate), Expires: 07/03/2025 CRP (INFLAMMATORY MARKER) Lab Routine Myalgia Malaise and fatigue Muscle weakness Chronic kidney disease, stage 3a (HCC) Expected: 07/03/2024 (Approximate), Expires: 07/03/2025 LYME DISEASE ANTIBODY SCREEN WITH REFLEX TO CONFIRMATION Lab Routine Myalgia Malaise and fatigue Muscle weakness Chronic kidney disease, stage 3a (HCC) Expected: 07/03/2024, Expires: 07/03/2025 ANAPLASMA PHAGOCYTOPHILUM DNA, QL REAL-TIME PCR Lab Routine Myalgia Malaise and fatigue Muscle weakness Chronic kidney disease, stage 3a (HCC) Expected: 07/03/2024, Expires: 07/03/2025 Scheduled Procedures Name Priority Associated Diagnoses Date/Ti me COLONOSCOPY FLEXIBLE PROXIMA L DIAGNOSTIC Recall History of colonic polyps Health Maintenance Due Date Last Done Comments Cologuard 1998 Fecal Occult Blood Test 1998 Sigmoidoscopy 1998 CKD PHOS USE SMARTSET 70137 06/11/2024 06/11/2023 HbA1c 06/11/2024 06/11/2023, 04/2022, 04/02/2021, Additional history exists GFR 09/29/2024 03/29/2024, 09/22, 07/05/2023, Additional history exists CKD HGB USE SMARTSET 31654 10/19/202410/19, 07/05/2023, 06/28/2023, Additional history exists Adult Wellness Visit 11/15/2024 11/15/2023, 11/11/19 Depression Screening 11/15/2024 11/15/2023 Albumin/Creatinine Ratio 03/29/2025 024, 10/22/2022, 05/28/2022 Colonoscopy 02/27/2029 02/28/2024, 02/18, 06/05/2020, Additional history exists Colorectal Cancer Screening 02/27/2029 DTap/Tdap Vaccines (4 - Td or Tdap) 06/12/2033 06/12/2023, 11/16/2018, 04/18/2008 Zoster Vaccines Completed 12/06/2019, 09/20, 01/11/2014 Pneumococcal Vaccine: 65+ Years Completed 04/19/2020, 01/30/2019, 12/20/2008 Influenza Vaccine (FLU shot) Completed 01/2024, 06/21/2023, 05/28/2022, Additional history exists COVID-19 Vaccine Completed 06/05/2024, , 08/05/2022, Additional history exists HPV (Gardasil) Vaccine Aged Out No lo nger eligible based on patient's age to complete this topic Hepatitis B Vaccine Aged Out No longe r eligible based on patient's age to complete this topic MENINGOCOCCAL (MENACTRA/MENVEO) Aged Out No longer eligible based on patient's age to complete this topic documented as of this encounter Medical Devices Implanted Type Area Sculpture Instructor Device Identifier Shelf Expiration Date Model / Serial / Lot Mesh Preshaped Large - [id number] Implanted:Qty : 1 on 12/31/2014 by Jj Weston MD at OR [facility] Right: Groin CR BARD : DAVOL 09/19/2018 [id number] / / [id number] Suture Hope Dbl Load 4.75mm - [id number] Implanted:Qty : 1 on 03/15/2020 by Kar [facility] DO [facility] [facility] Right: Shoulder [employer] 12/18/2021 [id number] / / [id number] documented as of this encounter Visit Diagnoses Diagnosis Myalgia- Primary Mylagia and myositis, unspecified Malaise and fatigue Other malaise and fatigue Muscle weakness Muscle weakness (generalized) Chronic kidney disease, stage 3a (HCC) documented in this encounter Advance Directives * Full Code (Latest Code Status on File) Date Activated Date Inactivated Comments 11/23/2012 8:27 PM 11/24/2012 8:07 PM This order ref lects the patients wishes and were consensually agreed upon. Question Answer Comments Discussion of Advance Directives occurred with: Patient/Family Care Teams Professor Of Communication Arts Relationship Specialty Start Date End Date Sabino Izaguirre MD [address] [place] [address] [place] [address] PCP - General Family Medicine 01/21/21 documented as of this encounter"
--- OUTSIDE RECORDS SUMMARY | 2024-10-31 17:33 | External Medical Summary | Summary of Care ---
Author Name Unknown Organization [facility] Address [address] [place] [address] Phone [phone] Care Team Providers Care Stand Up Forklift Operator Name Role Phone Sabino Izaguirre MD Primary Care Provide r Reason for Visit * Reason Onset Date Comments Remote Patient Monitoring Alert 07/25/2024 Encounter Details Date Type Department Care Team (Late st Contact Info) Description 07/25/2024 Home Monitoring Care Coordination [address] [place], [place] [id number] Iza Davis LPN HTN, goal below 130/80*; HTN, GOAL BELOW 140/90 Allergies Active Allergy Reactions Criticality Noted Date Comments Enalapril Maleate Cough 11/12/2014 Spironolactone Itching 03/29/2024 Stopped spring 2023; took about 2 wks for itching to resolve documented as of this encounter (statuses as of 07/26/2024) Medications Medication Sig Dispensed Refills Start Date [...] MORNING 100 Tablet 1 04/30/2024 04/30/2025 Active Doxycycline Hyclate 100 MG Oral Capsule Take 1 Capsule by mouth in the morning and 1 Capsule before bedtime. Do all this for 28 days. Until gone.. 56 Capsule 07/04/2024 08/01/2024 Active predniSONE 20 MG Oral Tablet (Deltasone)Indicat ions:Myalgia,Malai se and fatigue,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) (HCC) Take 1 Tablet by mouth in the morning. 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 01/01/2008 S/P angioplasty with stent 06/30/2006 Esophageal reflux 10/29/2005 documented as of this encounter (statuses as of 07/26/2024) Resolved Problems Problem Noted Date Diagnosed Date Resolved Date Cough due to RANDALL inhibitor 11/12/2014 0 01/30/2019 Hyperkalemia 11/12/2014 11/16/2018 Pre-operative cardiovascular examination 09/11/2014 11/12/2014 [employer] Other*[id number] 11/23/2012 10/27/2016 Overview: Study Title: Gen[employer] Markers for Patients with Cardiovascular Disease Project # [id number] Product Safety Technician: Laine Cadena MD [phone] Abnormal stress echocardiogram 11/17/2012 01/30/2019 Impotence of organic origin 04/18/2008 11/16/2018 Chest pain 08/31/2006 01/30/2019 ADVANCE DIRECTIVE INFORMATION 08/21/2005 07/24/2024 Overview: No, Advance Directive brochure given to patient at prior appointment. HIP & THIGH INJURY NOS 12/05/200401/30 Rosacea 02/23/2001 01/30/2019 Dyslipidemia, goal to be determined 08/29/2009 Overview: Per Lipid Taxonomy. HYPERTENSION NOS 08/08/2009 Overview: Modified per HTN protocol #16. documented as of this encounter (statuses as of 07/26/2024) Immunizations Name Administration Dates Next Due COVID-19 mRNA, LNP-s, No Pre serve, 2-Dose Series ([employer]) 01/01/2022,06/19/2021,11/25/2020,10/21 COVID-19, MRNA-LNP, 24-25, P R, 30MCG/0.3ML, IM, 12YRS AND ABOVE ([employer]-Comirnaty) 06/05/2024 COVID-19, MRNA-LNP, PF, 30 M CG/0.3 mL, 12 YRS AND ABOVE, IM ([employer]-Comirnaty) 10/19/2023 H1N1 2009 Influenza, IM 09/24/2009 Pneumococcal Conjugate Vacc, 13 Valent (Prevnar) 01/30/2019 Pneumococcal Polysaccharide PPV23 (Pneumovax) 04/19/2020,12/20/2008 Season Influenza, Quad, PF, Adjuvanted, 65+ Yrs, IM (FLUAD) 07/09/2020 Seasonal Influenza Vac., MDV , IM, 0.5 mL (Fluzone) 07/04/2015,07/13/2014,07/12/2013,06/20,06/23/2011,07/23/2010,07/05/20 Seasonal Influenza Virus Vac cine, Unspecified Formulation [...] this encounter Progress Notes * Jazz Gibbons, [facility] - 07/26/2024 9:09 AM EST Call placed to f/u on BP log x1 week per Dr Ledesma. Jazz Gibbons RPh, PharmD Clinical Pharmacist - Bore Miner Operator Medication Therapy [facility] 07/26/2024, 9:09 AM [phone] * Jazz Gibbons RPh - 07/25/2024 3:24 PM EST Systolic Diastolic Pulse Systolic Diastolic 142 74 Average 132 69 135 72 135 67 High 74 74 134 71 Low 65 65 115 67 135 65 Range 9 9 128 68 Count 7 7 Noted by MTM. Readings average slightly above goal, however will defer changes until treatment is complete. Hopeful this will help with readings returning to baseline. Routing to Dr Ledesma for any additional recommendations. Jazz Gibbons RPh, PharmIsidoro Clinical Pharmacist - Bore Miner Operator Medication [facility] 07/25/2024, 3:25 PM [phone] * Iza Davis LPN - 07/25/2024 11:27 AM EST Enzo Meehan Michaelayosef [id number] Liliawing Shaw is currently participating in the [employer] Hypertension Management Program and had a reading on 07/25/2024 of 142/74. Pt has alerted for an Average BP over 7 days >/= 130/80 . Parameters are currently set as follows: Average BP over 7 days >/= 130/80 Singular Systolic BP Reading </= 90 or >/=180 Singular Diastolic BP Reading </= 50 or >/=120 Patient is not reporting new symptoms or concerns, however he did want to let us know he is currently on day 6 of a Steroid and day 20 of antibiotics for a possible Lyme Infection. The patient does have all his blood [...] st Contact Info) Description 08/03/2024 3:00 PM EST Telemedicine Pharmacy, [address] [place] [address] [place] [address] 08/23/2024 2:40 PM EST Office Visit Rheumatology [address] [place] [address] Christiano Salas MD [address] [place] [address] [place] [address] 08/29/2024 11:00 AM EST [facility] [place] [address] Pennie [place] CRNP [address] [place] [address] 09/05/2024 10:00 AM EST Office Visit Otolaryngology [facility] [address] [place] [address] Renata Garcia PA-C [address] [place] [address] 11/17/2024 9:00 AM EST Nurse Only Ancillary [address] [place] [address] Veronica Nurse [address] [place] [address] 01/31/2025 3:20 PM EDT Office Visit Family Medicine [address] [place] [phone] Sabino Izaguirre MD [address] [place] [address] [place] [address] 04/16/2025 2:20 PM EDT Office Visit Nephrology [address] [place] [address] Kriss Mendoza MD [address] [facility] [place] [address] Scheduled Procedures Name Priority Associated Diagnoses Date/Ti me COLONOSCOPY FLEXIBLE PROXIMA L DIAGNOSTIC Recall History of colonic polyps Health Maintenance Due Date Last Done Comments Cologuard 1998 Fecal Occult Blood Test 1998 Sigmoidoscopy 1998 HbA1c 06/11/2024 06/11/2023, 04/2022, 04/02/2021, Additional history exists COVID-19 Vaccine ( season) 2024 06/05/2024, 10/19/2023, 08/05/2022, Additional history exists Adult Wellness Visit 11/15/2024 11/15/2023, 11/11/19 23 Depression Screening 11/15/2024 11/15/2023 GFR 01/01/2025 07/03/2024, 03/20, 10/19/2023, Additional history exists Albumin/Creatinine Ratio 03/29/2025 024, 10/22/2022, 05/28/2022 CKD HGB USE SMARTSET 45519 07/03/202507/03, 07/03/2024, 10/19/2023, Additional history exists CKD PHOS USE SMARTSET 28974 07/03/2025 07/03/2024, 0 06/11/2023 Colonoscopy 02/27/2029 02/28/2024, [...] this encounter Medical Devices Implanted Type Area Reo Asset Manager Device Identifier Shelf Expiration Date Model / Serial / Lot Mesh Preshaped Large - [id number] Implanted:Qty : 1 on 12/31/2014 by Jj Weston MD at [facility] Right: Groin CR BARD : [employer] 09/19/2018 [id number] / / [id number] Suture [place] Dbl Load 4.75mm - [id number] Implanted:Qty : 1 on 03/15/2020 by Kar Berry DO at OR [facility] Right: Shoulder [employer] 12/18/2021 [id number]- [id number] / / [id number] documented as of this encounter Visit Diagnoses [...] Advance Directives occurred with: Patient/Family Care Teams Stand Up Forklift Operator Relationship Specialty Start Date End Date Sabino Izaguirre MD [address] [place] [address] [place] [phone] PCP - General Family Medicine 01/21/21 documented as of this encounter
--- OUTSIDE RECORDS SUMMARY | 2024-10-31 17:33 | External Medical Summary ---
Author Name Unknown Address Unknown Organization [id number]:[facility]ATORY [facility] [place] - [address] [facility] [place] [address] Laboratory Report Ordering Provider Test Date Status JASON VILLA 07/03/2024 12:14:07 Final Observation Date Value Abnormality Reference (Units ) Status Erythrocyte sedimentation rate by Photometric method 07/03/2024 12:14:07 43 Above high normal <20 (mm/hour) Final Performing Location [facility] [place] - [address] [place] [address]
--- OUTSIDE RECORDS SUMMARY | 2024-10-31 17:33 | External Medical Summary ---
Author Name Unknown Address Unknown Organization K01[place] [facility] [place] [address] [facility] [place] [facility] [address] Laboratory Report Ordering Provider Test Date Status JASON VILLA 07/03/2024 12:14:07 Final Observation Date Value Abnormality Reference (Units ) Status Borrelia burgdorferi IgM Ab [Presence] in Serum 07/03/2024 12:14:07 Positive Abnormal Negative Final Borrelia burgdorferi IgG Ab [Presence] in Serum 07/03/2024 12:14:07 Positive Abnormal Negative Final LYME IGM/IGG CONFIRMATION INTERPRETATION- [facility] 07/03/2024 12:14:07 Final Results are consistent with B. burgdorferi infection (Lyme disease) in the recent or remote past. IgG-class antibodies may remain detectable for months to years following resolution of infection. Results should NOT be used to monitor or establish adequate response to therapy. Response to therapy is confirmed through resolution of clinical symptoms; additional laboratory testing should not be performed.

Test results reported to [facility]. Performing Location [place] [place] [address] [facility] [address]
--- OUTSIDE RECORDS SUMMARY | 2024-10-31 17:33 | External Medical Summary ---
Author Name Unknown Address Unknown Organization [id number]:[place] [place] [address] [facility] [address] Laboratory Report Ordering Provider Test Date Status CHANDNIDAPHNIEJE DaivsJASON 07/03/2024 12:14:07 Final Observation Date Value Abnormality Reference (Units ) Status SYNC LEUKOCYTES IN BLOOD BY AUTOMATED COUNT 07/03/2024 12:14:07 11.92 Above high normal 4.00-10.80 (K/uL) Final Segs 07/03/2024 12:14:07 70.4 40.0-75.0 (%) Final Lymphs % 07/03/2024 12:14:07 14.2 Below low normal 18.0-42.0 (%) Final Monos 07/03/2024 12:14:07 10.0 1.0-11.0 (%) Final Eosinophils 07/03/2024 12:14:07 3.9 0.0-6.0 (%) Final Basos 07/03/2024 12:14:07 1.0 0.0-2.0 (%) Final Immature Granulocyte, Percent 07/03/2024 12:14:07 0.5 0.0-2.0 (%) Final Absolute Segs 07/03/2024 12:14:07 8.39 Above high normal 1.80-7.70 (K/uL) Final Lymphs, absolute 07/03/2024 12:14:07 1.69 1.00-4.80 (K/ul) Final Monos, Abs 07/03/2024 12:14:07 1.19 Above high normal 0.00-1.10 (K/uL) Final Eos, Abs 07/03/2024 12:14:07 0.47 0.00-0.70 (K/uL) Final Basos, Abs 07/03/2024 12:14:07 0.12 0.00-0.20 (K/uL) Final Immature Granulocytes, Number 07/03/2024 12:14:07 0.06 0.00-0.20 (K/uL) Final Performing Location [facility] [place] [facility] [address] [place] [facility] [address]
--- OUTSIDE RECORDS SUMMARY | 2024-10-31 17:33 | External Medical Summary ---
Author Name Unknown Address Unknown Organization K01:[place] [facility] [place] [address] [place], [place] [address] [place] [address] Laboratory Report Ordering Provider Test Date Status CHANDNIDAPHNIEJE DavisJASON 07/03/2024 12:14:07 Final Observation Date Value Abnormality Reference (Units ) Status WBC, Total 07/03/2024 12:14:07 11.92 Above high normal 4 .00-10.80 (K/uL) Final RBC 07/03/2024 12:14:07 4.47 4.50-5.25 (M/uL) Final Hemoglobin 07/03/2024 12:14:07 12.6 Below low normal 14 .0-16.8 (g/dL) Final Anemia reflex testing trigge rs on a HGB < 12.0 for Females and HGB < 13.0 for Males in accordance with the WHO Anemia Guidelines
Anemia reflex testing triggers on a HGB < 12.0 for Females and HGB < 13.0 for Males in accordance with the WHO Anemia Guidelines HCT 07/03/2024 12:14:07 40.1 40.0-48.4 (%) Final MCV 07/03/2024 12:14:07 89.7 82.0-99.5 (fL) Final MCH 07/03/2024 12:14:07 28.2 27.0-34.0 (pg) Final MCHC 07/03/2024 12:14:07 31.4 32.0-36.0 (g/dL) Final RDW 07/03/2024 12:14:07 12.9 11.5-15.5 (%) Final Platelets 07/03/2024 12:14:07 291 140-400 (K /uL) Final MPV 07/03/2024 12:14:07 11.7 6.6-11.1 ( fL) Final Nucleated erythrocytes/100 leukocytes [Ratio] in Blood by Automated count 07/03/2024 12:14:07 0 <=0 (/100 WBCs) Mackenzie mello Performing Location [facility] [place] [address] [place] [facility] [address]
--- OUTSIDE RECORDS SUMMARY | 2024-10-31 17:33 | External Medical Summary | Summary of Care ---
Author Name Unknown Organization [facility] Address [address] [facility] [address] Phone [phone] Care Team Providers Care Food Order Expediter Name Role Phone Sabino Izaguirre MD Primary Care Provide r Reason for Visit * Reason Comments Outpatient Testing Encounter Details Date Type Department Care Team (Late st Contact Info) Description 07/03/2024 12:20 PM EDT Laboratory Laboratory [address] [place] [phone] [place] [address] Myalgia; Malaise and fatigue; Muscle weakness; Chronic kidney disease, stage 3a ([facility]) Allergies Active Allergy Reactions Criticality Noted Date [...] Impotence of organic origin 04/18/2008 Atherosclerosis of [place] co ronary artery of [place] heart with stable angina pectoris 01/01/2008 S/P [...] cardiovascular examination 09/11/2014 11/12/2014 [employer] Other*[id number] 11/23/2012 10/27/2016 Overview: Study Title: [employer] Markers for Patients with Cardiovascular Disease Project # [id number] Assistant Professor Of History: Laine Cadena MD [phone] Abnormal stress echocardiogram 11/17/2012 01/30/2019 Impotence of [...] mRNA, LNP-s, No Pre serve, 2-Dose Series ([employer]) 01/01/2022,06/19/2021,11/25/2020,10/21 COVID-19, MRNA-LNP, 23-24, P F, 30 MCG/0.3 mL, 12 YRS AND ABOVE, IM ([employer]Comirnaty) 10/19/2023 COVID-19, MRNA-LNP, 24-25, P R, 30MCG/0.3ML, IM, 12YRS AND ABOVE ([employer]-Comirnaty) 06/05/2024 H1N1 2009 Influenza, IM 09/24/2009 Pneumococcal [...] No 11/15/2023 Does the household have a [facility] source of income? (Household - for ages [...] 08/29/2024 11:00 AM EST Office Visit Cardiology, [facility] [address] [place] [address] Pennie [place] CRNP [address] [place] [address] 09/05/2024 10:00 AM EST Office Visit Otolaryngology [facility] [address] [place] [address] Renata Garcia PA-C [address] [place] [address] 11/17/2024 9:00 AM EST Nurse Only Ancillary [address] [place] [address] Veronica, Nurse Annual Wellness [address] [place] [address] [place] [address] 01/31/2025 3:20 PM EDT Office Visit Family Medicine [address] [place] [phone] Sabino Izaguirre MD [address] [place] [address] [place] [address] Pending Results Name Type Priority Associated Diagnoses Date /Time CBC WITH WBC DIFFERENTIAL AND ANEMIA REFLEX [...] stage 3a (HCC) 07/03/2024 12:14 PM EDT ANEMIA CBC Lab Routine Myalgia Malaise and fatigue Muscle weakness 07/03/2024 12:14 PM EDT DIFFERENTIAL, AUTOMATED Lab Routine Myalgia Malaise and fatigue Muscle weakness 07/03/2024 12:14 PM EDT ANEMIA REFLEX CHEMISTRY HOLD Lab Routine Myalgia Malaise and fatigue Muscle weakness 07/03/2024 12:14 PM EDT LYME DISEASE ANTIBODY SCREEN Lab Routine Myalgia Malaise and fatigue Muscle weakness Chronic kidney disease, stage 3a (HCC) 07/03/2024 12:14 PM EDT Scheduled Procedures Name Priority Associated Diagnoses Date/Ti me COLONOSCOPY FLEXIBLE PROXIMA L DIAGNOSTIC Recall History of colonic polyps Health Maintenance Due Date Last Done Comments Cologuard 1998 Fecal Occult Blood Test 1998 Sigmoidoscopy 1998 CKD PHOS USE SMARTSET 88986 06/11/2024 06/11/2023 HbA1c 06/11/2024 06/11/2023, 04/2022, 04/02/2021, Additional history exists GFR 09/29/2024 03/29/2024, 09/22, 07/05/2023, Additional history exists CKD HGB USE SMARTSET 18273 10/19/202410/19, 07/05/2023, 06/28/2023, Additional history exists Adult [...] this encounter Medical Devices Implanted Type Area Platinum Smith Device Identifier Shelf Expiration Date Model / Serial / Lot Mesh Preshaped Large - [id number] Implanted:Qty : 1 on 12/31/2014 by Jj Weston MD at OR [facility] Right: Groin CR [employer]ARD : DAVOL 09/19/2018 [id number] / / [id number] Suture [place] Dbl Load 4.75mm - [id number] Implanted:Qty : 1 on 03/15/2020 by Kar Berry DO at OR [facility] Right: Shoulder [employer] 12/18/2021 AR-2324BCT- 2 / / [id number] documented as of this encounter Visit Diagnoses Diagnosis Myalgia Mylagia and myositis, unspecified Malaise and fatigue [...] Advance Directives occurred with: Patient/Family Care Teams Food Order Expediter Relationship Specialty Start Date End Date Sabino Izaguirre MD [address] [place] [address] [place] [address] PCP - General Family Medicine 01/21/21 documented as of this encounter
--- OUTSIDE RECORDS SUMMARY | 2024-10-31 17:33 | External Medical Summary ---
Author Name Unknown Address Unknown Organization K01:[place] [facility] [place] [address] [facility] [address] Laboratory Report Ordering Provider Test Date Status JASON VILLA 07/03/2024 12:14:07 Final Observation Date Value Abnormality Reference (Units ) Status BUN 07/03/2024 12:14:07 33 Above high normal 6-20 (mg/dL) Final Creatinine 07/03/2024 12:14:07 1.4 Above high normal 0.6-1.2 (mg/dL) Final Glomerular filtration rate/1.73 sq M.predicted [Volume Rate/Area] in Serum, Plasma or Blood by Creatinine-based formula (CKD-EPI) 07/03/2024 12:14:07 53 Below low normal >=60 (mL/min) Final eGFR is calculated based on the CKD-EPI 2020 equation. Sodium 07/03/2024 12:14:07 139 135-146 (m mol/L) Final Potassium 07/03/2024 12:14:07 5.5 Above high normal 3. 5-5.1 (mmol/L) Final Cl 07/03/2024 12:14:07 102 98-107 (mm ol/L) Final CO2 07/03/2024 12:14:07 26 22-32 (mmo l/L) Final Anion gap 07/03/2024 12:14:07 11 7-15 (mmol /L) Final Glucose 07/03/2024 12:14:07 80 70-120 (mg /dL) Final Albumin 07/03/2024 12:14:07 4.4 3.8-5.0 (g /dL) Final AST (Aspartate aminotransferase) 07/03/2024 12:14:07 17 10-50 (U/L) Fin al Alk Phos 07/03/2024 12:14:07 67 35-130 (U/ L) Final Bilirubin, Total 07/03/2024 12:14:07 0.3 <=1 .2 (mg/dL) Final Calcium 07/03/2024 12:14:07 10.0 8.4-10.2 ( mg/dL) Final Protein 07/03/2024 12:14:07 7.0 6.0-8.3 (g /dL) Final ALT (Alanine aminotransferase) 07/03/2024 12:14:07 17 10-50 (U/L) Sp glover Performing Location [facility] [place] [address] [place] [facility] [address]
--- OUTSIDE RECORDS SUMMARY | 2024-10-31 17:33 | External Medical Summary | Summary of Care ---
Author Name Unknown Organization [facility] Address [address] [place] [address] Phone [phone] Care Team Providers Care Aviation Safety Officer Name Role Phone Sabino Izaguirre MD Primary Care Provide r Reason for Visit * Reason Onset Date Comments Remote Patient Monitoring Alert 08/15/2024 Encounter Details Date Type Department Care Team (Late st Contact Info) Description 08/15/2024 Home Monitoring Care Coordination [address] [place], [place] [id number] Iza Davis LPN HTN, goal below 130/80*; HTN, GOAL BELOW 140/90 Allergies Active Allergy Reactions Criticality Noted Date Comments Enalapril Maleate Cough 11/12/2014 Spironolactone Itching 03/29/2024 Stopped spring 2023; took about 2 wks for itching to resolve documented as of this encounter (statuses as of 08/15/2024) Medications ASPIRIN 81 MG PO TABSIndications: S/P [...] PM EST 4 04/30/20 25 Active predniSONE 20 MG Oral Tablet (Deltasone)Indic ations:Myalgia,M alaise and fatigue,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) ([facility]) Take 1 Tablet by mouth in the morning. 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 01/01/2008 S/P angioplasty with stent 06/30/2006 Esophageal reflux 10/29/2005 documented as of this encounter (statuses as of 08/15/2024) Resolved Problems Problem Noted Date Diagnosed Date Resolved Date Prediabetes 04/29/2020 08/03/2024 Overview: Per Prediabetes protocol Cough due to RANDALL inhibitor 11/12/2014 0 01/30/2019 Hyperkalemia 11/12/2014 11/16/2018 Pre-operative cardiovascular examination 09/11/2014 11/12/2014 [facility] [facility] Other*[id number] 11/23/2012 10/27/2016 Overview (11/23/2012): Study Title: Genomic Markers for Patients with Cardiovascular Disease Project # [id number] Deputy Sheriff Custody: Laine Cadena MD [phone] Abnormal stress echocardiogram 11/17/2012 01/30/2019 Impotence of [...] as of this encounter (statuses as of 08/15/2024) Immunizations Name Administration Dates Next Due COVID-19 mRNA, LNP-s, No Pre serve, 2-Dose Series (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 Readings slightly above goal due to steroid use. Call already placed to follow up on readings once steroid course completed on 09/01. [employer] message sent to patient to follow up as well. 07/29/24 13:16 07/30/24 09:06 07/31/24 08:27 08/04/24 10:20 08/08/24 10:11 08/10/24 10:16 08/11/24 17:06 08/13/24 10:23 08/14/24 08:38 Systolic BP 129 mm/Hg [1] 134 mm/Hg [1] 137 mm/Hg [1] 130 mm/Hg [1] 144 mm/Hg (H) [1] 128 mm/Hg [1]139 mm/Hg [1] 139 mm/Hg [1] 141 mm/Hg (H) [1] Diastolic BP 69 mm/Hg [1] 68 mm/Hg [1] 75 mm/Hg [1] 73 mm/Hg [1] 79 mm/Hg [1] 68 mm/Hg [1] 87 mm/Hg[1] 80 mm/Hg [1] 72 mm/Hg [1] (H): Data is abnormally high [1] CH:VITAL_READING_TYPE=SPOT CH:PERIPHERAL_BRAND=[facility] Jazz Gibbons RPh, PharmD Clinical Pharmacist - Pump Servicer Helper Medication Therapy [facility] 08/15/2024, 3:49 PM Ph.[phone] * Iza Davis LPN - 08/15/2024 11:01 AM EST Enzo Shaw [id number] Patient is currently participating in the CC365 Hypertension Management Program and has alerted yessy Average BP over 7 days >/= with a BP reading of 139/87 on 08/11/2024. Parameters are currently set as follows: Average BP over 7 days >/= 130/80 Singular Systolic BP Reading </= 90 or >/=180 Singular Diastolic BP Reading </= 50 or >/=120 After multiple attempts via both text and phone (messages left), we were unable to reach patient tovalidate this reading and check on patients condition. Emergency contacts were also attempted lior avail. We will continue to monitor patient for [...] reach patient at this time. Thank you, Iza Davis LPN documented in this encounter Plan of Treatment Upcoming Encounters Date Type Department Care Team (Late st Contact Info) Description 08/23/2024 2:40 PM EST Office Visit Rheumatology [facility] [address] [place] [address] Christiano Salas MD [address] [place] [address] 08/29/2024 11:00 AM EST Office Visit Cardiology, [facility] [address] [place] [address] Pennie Naranjo CRNP [address] [address] 09/01/2024 11:30 AM EST Telemedicine Pharmacy, [address] [place] [address] [place] [address] 09/05/2024 10:00 AM EST Office Visit Otolaryngology [facility] [address] [place] [address] Renata Garcia PA-C [address] [place] [address] 11/17/2024 9:00 AM EST Nurse Only Ancillary [address] [place] [address] Susannealley, Nurse [address] [place] [address] 01/31/2025 3:20 PM EDT Office Visit Family Medicine [address] [place] [phone] Sabino Izaguirre MD [address] [place] [address] [place] [address] 04/16/2025 2:20 PM EDT Office Visit Nephrology [address] [place] [address] Kriss Mendoza MD [address] [facility] [place] [address] Scheduled Procedures Name Priority Associated Diagnoses Date/Ti [...] 024, 10/22/2022, 05/28/2022 CKD HGB USE SMARTSET 59383 07/03/202507/03, 07/03/2024, 10/19/2023, Additional history exists CKD PHOS USE SMARTSET 12901 07/03/2025 07/03/2024, 0 06/11/2023 Colonoscopy 02/27/2029 02/28/2024, [...] this encounter Medical Devices Implanted Type Area Precinct Commanding Officer Device Identifier Shelf Expiration Date Model / Serial / Lot Mesh Preshaped Large - [id number] Implanted:Qty : 1 on 12/31/2014 by Jj Weston MD at OR [facility] Right: Groin CR BARD : DAVOL 09/19/2018 [id number] / / [id number] Suture [place] Dbl Load 4.75mm - [id number] Implanted:Qty : 1 on 03/15/2020 by Kar Berry DO at OR [facility] Right: Shoulder [employer] 12/18/2021 AR-2324BCT- 2 / / [id number] documented as of this encounter Visit Diagnoses [...] Advance Directives occurred with: Patient/Family Care Teams Aviation Safety Officer Relationship Specialty Start Date End Date Sabino Izaguirre MD [address] [place] [address] [place] [address] PCP - General Family Medicine 01/21/21 documented as of this encounter
--- OUTSIDE RECORDS SUMMARY | 2024-10-31 17:33 | External Medical Summary ---
Author Name Unknown Address Unknown Organization K01:LABORATORY [address] [facility] [address] Laboratory Report Ordering Provider Test Date Status JASON VILLA 07/03/2024 12:14:07 Final Observation Date Value Abnormality Reference (Units ) Status Anaplasma phagocytophilum DNA [Presence] in Blood by [facility]U with probe detection 07/03/2024 12:14:07 Negative Negative Final No Anaplasma phagocytophilum detected by PCR (amplified probe).
This test was developed, and its performance characteristics determined by [facility]. It has not been cleared or approved by the FDA. The laboratory is regulated under CLIA as qualified to perform high-complexity testing. This test is used for clinical purposes. It should not be regarded as investigational or for research. Babesia sp DNA [Presence] in Blood by [facility]U with probe detection 07/03/2024 12:14:07 Negative Negative Final No Babesia species detected by PCR (amplified probe).
This test was developed, and its performance characteristics determined by [facility]. It has not been cleared or approved by the FDA. The laboratory is regulated under CLIA as qualified to perform high-complexity testing. This test is used for clinical purposes. It should not be regarded as investigational or for research. Performing Location LABORATORY [place] [address] [facility] [address]
--- OUTSIDE RECORDS SUMMARY | 2024-10-31 17:33 | External Medical Summary ---
Author Name Unknown Address Unknown Organization K01:LABORATORY [facility] - [address] [place] [address] Laboratory Report Ordering Provider Test Date Status JASON VILLA 07/03/2024 12:14:07 Final Observation Date Value Abnormality Reference (Units ) Status Iron 07/03/2024 12:14:07 55 45-176 (ug /dL) Final Iron-binding capacity 07/03/2024 12:14:07 339 250-425 (ug/dL) Final Transferrin Sat % 07/03/2024 12:14:07 16 15 -55 (%) Final Performing Location LABORATORY [facility] [address] [facility] [address]
--- OUTSIDE RECORDS SUMMARY | 2024-10-31 17:33 | External Medical Summary | Summary of Care ---
Author Name Unknown Organization [facility] Address [address] [place] [address] Phone [phone] Care Team Providers Care Keel Press Operator Name Role Phone Sabino Izaguirre MD Primary Care Provide r Encounter Details Date Type Department Care Team (Late st Contact Info) Description 08/07/2024 Orders Only Outcomes Research Department [address] [place], [place] [phone] Laine Sandoval CHRA [employer] [facility] Other*[id number] Allergies Active Allergy Reactions Criticality Noted Date Comments Enalapril Maleate Cough 11/12/2014 Spironolactone Itching 03/29/2024 Stopped spring 2023; took about 2 wks for itching to resolve documented as of this encounter (statuses as of 08/07/2024) Medications ASPIRIN 81 MG PO TABSIndications: S/P [...] ations:Myalgia,M alaise and fatigue,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) ([facility]) Take 1 Tablet by mouth in the morning. 30 Tablet 4 08/19/20 24 Active documented as of this encounter (statuses as of 08/07/2024) Active Problems Problem Noted Date Diagnosed Date [...] Impotence of organic origin 04/18/2008 Atherosclerosis of [place] co ronary artery of [place] heart with stable angina pectoris 01/01/2008 S/P angioplasty with stent 06/30/2006 Esophageal reflux 10/29/2005 documented as of this encounter (statuses as of 08/07/2024) Resolved Problems Problem Noted Date Diagnosed Date Resolved Date Prediabetes 04/29/2020 08/03/2024 Overview: Per Prediabetes protocol Cough due to RANDALL inhibitor 11/12/2014 0 01/30/2019 Hyperkalemia 11/12/2014 11/16/2018 Pre-operative cardiovascular examination 09/11/2014 11/12/2014 [facility] Other*[id number] 11/23/2012 10/27/2016 Overview (11/23/2012): Study Title: Genomic Markers for Patients with Cardiovascular Disease Project # [id number] Roving Changer: Laine Cadena MD [phone] Abnormal stress echocardiogram 11/17/2012 01/30/2019 Impotence of [...] as of this encounter (statuses as of 08/07/2024) Immunizations Name Administration Dates Next Due COVID-19 mRNA, LNP-s, No Pre serve, 2-Dose Series ([employer]) 01/01/2022,06/19/2021,11/25/2020,10/21 COVID-19, MRNA-LNP, 24-25, P R, 30MCG/0.3ML, IM, 12YRS AND ABOVE ([employer]) 06/05/2024 COVID-19, MRNA-LNP, PF, 30 M CG/0.3 mL, 12 YRS AND ABOVE, IM ([employer]) 10/19/2023 H1N1 2009 Influenza, IM 09/24/2009 Pneumococcal [...] 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 on file Not on fi le documented as of this encounter Plan of Treatment Upcoming Encounters Date Type Department Care Team (Late st Contact Info) Description 08/23/2024 2:40 PM EST Office Visit [facility] [place] [phone] [facility] [place] [address] Christiano Salas MD [facility] [place] [address] 08/29/2024 11:00 AM EST Office Visit Cardiology, [facility] [address] [place] [address] Pennie Naranjo CRNP [address] [place] [address] 09/01/2024 11:30 AM EST Telemedicine Pharmacy, [address] [place] [address] [place] [address] 09/05/2024 10:00 AM EST Office Visit Otolaryngology [facility] [address] [place] [address] Rneata Garcia PA-C [address] [place] [address] 11/17/2024 9:00 AM EST Nurse Only Ancillary [address] [place] [address] Susannealley, Nurse [address] [place] [address] 01/31/2025 3:20 PM EDT Office Visit Family Medicine [address] [place] [phone] Sabino Izaguirre MD [address] [place] [address] [place] [address] 04/16/2025 2:20 PM EDT Office Visit Nephrology [address] [place] [address] Kriss Mendoza MD [address] [facility] [place] [address] Scheduled Orders Name Type Priority Associated Diagnoses Orde r Schedule MYCODE SUBSEQUENT ADULT Lab Routine [employer] Research Other*[id number] Every 6 Months for 2 Occurrences starting 08/07/2024 until 08/27/2025 Scheduled Procedures Name Priority Associated Diagnoses Date/Ti [...] 024, 10/22/2022, 05/28/2022 CKD HGB USE SMARTSET 78368 07/03/202507/03, 07/03/2024, 10/19/2023, Additional history exists CKD PHOS USE SMARTSET 63940 07/03/2025 07/03/2024, 0 06/11/2023 Colonoscopy 02/27/2029 02/28/2024, [...] this encounter Medical Devices Implanted Type Area Game Breeding Farm Manager Device Identifier Shelf Expiration Date Model / Serial / Lot Mesh Preshaped Large - [id number] Implanted:Qty : 1 on 12/31/2014 by Jj Weston MD at OR [facility] Right: Groin CR BARD : DAVOL 09/19/2018 [id number] / / [id number] Suture [place] Dbl Load 4.75mm - [id number] Implanted:Qty : 1 on 03/15/2020 by Kar Berry DO at OR [facility] Right: Shoulder [employer] 12/18/2021 AR-2324BCT- 2 / / [id number] documented as of this encounter Visit Diagnoses Diagnosis [facility] [facility] Other*[id number] documented in this encounter Advance Directives * Full Code (Latest Code Status on File) Date Activated Date Inactivated Comments 11/23/2012 8:27 PM 11/24/2012 8:07 PM This order ref lects the patients wishes and were consensually agreed upon. Question Answer Comments Discussion of Advance Directives occurred with: Patient/Family Care Teams Keel Press Operator Relationship Specialty Start Date End Date Sabino Izaguirre MD [address] [place] [address] [place] [address] PCP - General Family Medicine 01/21/21 documented as of this encounter
--- OUTSIDE RECORDS SUMMARY | 2024-10-31 17:34 | External Medical Summary | Summary of Care ---
Author Name Unknown Organization [facility] Address [address] [place] [address] Phone [phone] Care Team Providers Care Relationship Advisor Name Role Phone Sabino Izaguirre MD Primary Care Provide r Reason for Visit * Reason Onset Date Comments Remote Patient Monitoring Alert 06/30/2024 Encounter Details Date Type Department Care Team (Late st Contact Info) Description 06/30/2024 Home Monitoring Care Coordination [address] [place], [place] [phone] HepIza tate LPN HTN, goal below 130/80* Allergies Active Allergy Reactions Criticality Noted Date Comments Enalapril Maleate Cough 11/12/2014 Spironolactone Itching 03/29/2024 Stopped spring 2023; took about 2 wks for itching to resolve documented as of this encounter (statuses as of 06/30/2024) Medications Medication Sig Dispensed Refills Start Date [...] as of this encounter (statuses as of 06/30/2024) Active Problems Problem Noted Date Diagnosed Date [...] Impotence of organic origin 04/18/2008 Atherosclerosis of [place] co ronary artery of [place] heart with stable angina pectoris 01/01/2008 S/P angioplasty with stent 06/30/2006 Esophageal reflux 10/29/2005 ADVANCE DIRECTIVE INFORMATION 08/21/2005 Overview: No, Advance Directive brochure given to patient at prior appointment. documented as of this encounter (statuses as of 06/30/2024) Resolved Problems Problem Noted Date Diagnosed Date Resolved Date Cough due to RANDALL inhibitor 11/12/2014 0 01/30/2019 Hyperkalemia 11/12/2014 11/16/2018 Pre-operative cardiovascular examination 09/11/2014 11/12/2014 [facility] Other*[id number] 11/23/2012 10/27/2016 Overview: Study Title: Genomic Markers for Patients with Cardiovascular Disease Project # [id number] Regrind Mill Operator: Laine Cadena MD [phone] Abnormal stress echocardiogram 11/17/2012 01/30/2019 Impotence of organic origin 04/18/2008 11/16/2018 Chest pain 08/31/2006 01/30/2019 HIP & THIGH INJURY NOS 12/05/200401/30 Rosacea 02/23/2001 01/30/2019 Dyslipidemia, goal to be determined 08/29/2009 Overview: Per Lipid Taxonomy. HYPERTENSION NOS 08/08/2009 Overview: Modified per HTN protocol #16. documented as of this encounter (statuses as of 06/30/2024) Immunizations Name Administration Dates Next Due COVID-19 mRNA, LNP-s, No Pre serve, 2-Dose Series ([employer]) 01/01/2022,06/19/2021,11/25/2020,10/21 COVID-19, MRNA-LNP, 23-24, P F, 30 [...] No 11/15/2023 Does the household have a unm cancer centerlar source of income? (Household - for ages [...] Progress Notes * Jazz Gibbons RPh - 06/30/2024 2:55 PM EDT Systolic Diastolic Pulse Systolic Diastolic 142 75 Average 135 73 132 72 141 73 High 78 78 129 72 Low 68 68 128 73 136 68 Range 10 10 137 72 Count 8 8 135 78 BP average remaining slightly above goal due to outliers noted above. Recommend continuing to monitor at this time. No changes to medications. Jazz Gibbons RPh, PharmD Clinical Pharmacist - Tank Pumper Medication Therapy [facility] 06/30/2024, 2:56 PM Ph.[phone] * Iza Davis LPN - 06/30/2024 2:53 PM EDT Enzo Shaw [id number] Enzo Shaw is currently participating in the CC365 Hypertension Management Program and had a reading on 06/30/2024 of 142/75. Pt has alerted for an Average BP [...] 08/29/2024 11:00 AM EST Office Visit Cardiology, [facility] [address] [place] [address] Pennie Naranjo CRNP [address] [place] [address] 09/05/2024 10:00 AM EST Office Visit Otolaryngology [facility] [address] [place] [address] Renata Garcia PA-C [address] [place] [address] 11/17/2024 9:00 AM EST Nurse Only Ancillary [address] [place] [address] Veronica, Nurse [address] [place] [address] 01/31/2025 3:20 PM EDT Office Visit Family Medicine [address] [place] [phone] Sabino Izaguirre MD [address] [place] [address] [place] [address] Scheduled Procedures Name Priority Associated Diagnoses Date/Ti me COLONOSCOPY FLEXIBLE PROXIMA L DIAGNOSTIC Recall History of colonic polyps Health Maintenance Due Date Last Done Comments Cologuard 1998 Fecal Occult Blood Test 1998 Sigmoidoscopy 1998 COVID-19 Vaccine ( season) 2024 10/19/2023, 08/05/2022, 01/01/2022, Additional history exists CKD PHOS USE SMARTSET 45456 06/11/2024 06/11/2023 HbA1c 06/11/2024 06/11/2023, 04/2022, 04/02/2021, Additional history exists GFR 09/29/2024 03/29/2024, 09/22, 07/05/2023, Additional history exists CKD HGB USE SMARTSET 76181 10/19/202410/19, 07/05/2023, 06/28/2023, Additional history exists Adult Wellness Visit 11/15/2024 11/15/2023, 11/11/19 23 Depression Screening 11/15/2024 11/15/2023 Albumin/Creatinine Ratio 03/29/2025 [...] this encounter Medical Devices Implanted Type Area Real Estate Closing Coordinator Device Identifier Shelf Expiration Date Model / Serial / Lot Mesh Preshaped Large - [id number] Implanted:Qty : 1 on 12/31/2014 by Jj Weston MD at OR [facility] Right: Groin CR BARD : DAVOL 09/19/2018 [id number] / / [id number] Suture [place] Dbl Load 4.75mm - [id number] Implanted:Qty : 1 on 03/15/2020 by Kar Berry DO at OR [facility] Right: Shoulder [employer] 12/18/2021 AR-2324BCT- 2 / / [id number] documented as of this encounter Visit Diagnoses [...] Advance Directives occurred with: Patient/Family Care Teams Relationship Advisor Relationship Specialty Start Date End Date Sabino Izaguirre MD [address] [place] [address] [place] [phone] PCP - General Family Medicine 01/21/21 documented as of this encounter
--- OUTSIDE RECORDS SUMMARY | 2024-10-31 17:34 | External Medical Summary | Summary of Care ---
Author Name Unknown Organization [facility] Address [address] [place] [address] Phone [phone] Care Team Providers Care Marriage Performer Name Role Phone Sabino Izaguirre MD Primary Care Provide r Reason for Visit * Reason Onset Date Comments Remote Patient Monitoring Alert 05/29/2024 Encounter Details Date Type Department Care Team (Late st Contact Info) Description 05/29/2024 Home Monitoring Care Coordination [address] [place], [place] [phone] HepIza tate LPN HTN, goal below 130/80* Allergies Active Allergy Reactions Criticality Noted Date Comments Enalapril Maleate Cough 11/12/2014 Spironolactone Itching 03/29/2024 Stopped spring 2023; took about 2 wks for itching to resolve documented as of this encounter (statuses as of 05/29/2024) Medications Medication Sig Dispensed Refills Start Date [...] as of this encounter (statuses as of 05/29/2024) Active Problems Problem Noted Date Diagnosed Date [...] as of this encounter (statuses as of 05/29/2024) Resolved Problems Problem Noted Date Diagnosed Date Resolved Date Cough due to RANDALL inhibitor 11/12/2014 0 01/30/2019 Hyperkalemia 11/12/2014 11/16/2018 Pre-operative cardiovascular examination 09/11/2014 11/12/2014 [employer] Other*[id number] 11/23/2012 10/27/2016 Overview: Study Title: Genomic Markers for Patients with Cardiovascular Disease Project # [id number] Editor In Chief: Laine Cadena MD [phone] Abnormal stress echocardiogram 11/17/2012 01/30/2019 Impotence of organic origin 04/18/2008 11/16/2018 Chest pain 08/31/2006 01/30/2019 HIP & THIGH INJURY NOS 12/05/200401/30 Rosacea 02/23/2001 01/30/2019 Dyslipidemia, goal to be determined 08/29/2009 Overview: Per Lipid Taxonomy. HYPERTENSION NOS 08/08/2009 Overview: Modified per HTN protocol #16. documented as of this encounter (statuses as of 05/29/2024) Immunizations Name Administration Dates Next Due COVID-19 mRNA, LNP-s, No Pre serve, 2-Dose Series ([place]) 01/01/2022,06/19/2021,11/25/2020,10/21 COVID-19, MRNA-LNP, 23-24, P F, 30 [...] lent, No Preserve, Mdck 06/28/2018 Seasonal Influenza, Trivalen t, (IIV3), with Preserv, (Fluzone) 07/04/2015,07/13/2014,07/12/2013,06/20,06/23/2011,07/23/2010,07/05/20 09 TD, Preservative Free 11/16/2018 TDAP, Age 5 [...] No 11/15/2023 Does the household have a [facility] source [facility] income? (Household - for [...] Progress Notes * Jazz Gibbons RPh - 05/29/2024 3:14 PM EDT Systolic Diastolic Pulse Systolic Diastolic 124 75 Average 130 70 130 70 141 70 High 75 75 135 63 Low 63 63 125 68 142 70 Range 12 12 126 73 Count 8 8 117 69 Readings overall at goal. No changes at this time. Jazz Gibbons RPh, PharmD Clinical Pharmacist - Dry Kiln Worker [facility] 05/29/2024, 3:15 PM [phone] * Iza Davis LPN - 05/29/2024 2:12 PM EDT Enzo Shaw [phone] Enzo Shaw is currently participating in the [employer] Hypertension Management Program and had a reading on 05/27/2024 of 141/70. Pt has alerted for Average BP over 7 days >/= 130/80 Parameters are currently set as follows: Average [...] 08/29/2024 11:00 AM EST Office Visit Cardiology, [facility] [address] [place] [address] Pennie Naranjo CRNP [address] [facility] [place] [address] 09/05/2024 1:40 PM EST Office Visit Otolaryngology [facility] [address] [place] [address] Renata Garcia PA-C [address] [place] [address] 11/17/2024 9:00 AM EST Nurse Only Ancillary [address] [place] [address] [place], Nurse [address] [place] [address] 01/31/2025 3:20 PM EDT Office Visit Family Medicine [address] [place] [phone] Sabino Izaguirre MD [address] [place] [address] [place] [phone] Scheduled Procedures Name Priority Associated Diagnoses Date/Ti me COLONOSCOPY FLEXIBLE PROXIMA L DIAGNOSTIC Recall History of colonic polyps Health Maintenance Due Date Last Done Comments Cologuard 1998 Fecal Occult Blood Test 1998 Sigmoidoscopy 1998 COVID-19 Vaccine ( season) 2024 10/19/2023, 08/05/2022, 01/01/2022, Additional history exists Influenza Vaccine (FLU shot) (#1) 2024 06/21/2023, 05/28/2022, 05/28/2022, Additional history exists CKD PHOS USE SMARTSET 21355 06/11/2024 06/11/2023 HbA1c 06/11/2024 06/11/2023, 04/2022, 04/02/2021, Additional history exists GFR 09/29/2024 03/29/2024, 09/22, 07/05/2023, Additional history exists CKD HGB USE SMARTSET 71278 10/19/202410/19, 07/05/2023, 06/28/2023, Additional history exists Adult Wellness Visit 11/15/2024 11/15/2023, 11/11/19 23 Depression Screening 11/15/2024 11/15/2023 Albumin/Creatinine Ratio 03/29/2025 024, 10/22/2022, 05/28/2022 Colonoscopy 02/27/2029 02/28/2024, 02/18, 06/05/2020, Additional history exists Colorectal Cancer Screening 02/27/2029 DTap/Tdap Vaccines (4 - Td or Tdap) 06/12/2033 06/12/2023, 11/16/2018, 04/18/2008 Zoster Vaccines Completed 12/06/2019, 09/20, 01/11/2014 Pneumococcal Vaccine: 65+ Years Completed 04/19/2020, 01/30/2019, 12/20/2008 HPV (Gardasil) Vaccine Aged Out No lo nger eligible based on patient's age to complete this topic Hepatitis B Vaccine Aged Out No longe r eligible based on patient's age to complete this topic MENINGOCOCCAL (MENACTRA/MENVEO) Aged Out No longer eligible based on patient's age to complete this topic documented as of this encounter Medical Devices Implanted Type Area Regional Business Manager Device Identifier Shelf Expiration Date Model / Serial / Lot Mesh Preshaped Large - [id number] Implanted:Qty : 1 on 12/31/2014 by Jj Weston MD at OR [facility] Right: Groin CR BARD : DAVOL 09/19/2018 [id number] / / [id number] Suture [place] Dbl Load 4.75mm - [id number] Implanted:Qty : 1 on 03/15/2020 by Kar Berry DO at OR [facility] Right: Shoulder [employer] 12/18/2021 [id number]- [id number] / / [id number] documented as of this encounter Visit Diagnoses [...] Advance Directives occurred with: Patient/Family Care Teams Marriage Performer Relationship Specialty Start Date End Date Sabino Izaguirre MD [address] [place] [address] [place] [phone] PCP - General Family Medicine 01/21/21 documented as of this encounter
--- OUTSIDE RECORDS SUMMARY | 2024-10-31 17:34 | External Medical Summary ---
Author Name Unknown Address Unknown Organization K01:[facility] - [address] [place] [address] Laboratory Report Ordering Provider Test Date Status JASON VILLA 07/03/2024 12:14:07 Final Observation Date Value Abnormality Reference (Units ) Status Ferritin 07/03/2024 12:14:07 198 30-400 (ng /mL) Final Performing Location [facility] - [address] [place] [address]
--- OUTSIDE RECORDS SUMMARY | 2024-10-31 17:34 | External Medical Summary | Summary of Care ---
Author Name Unknown Organization [facility] Address [address] [place] [address] Phone [phone] Care Team Providers Care Hard Candy Batch Mixer Name Role Phone Sabino Izaguirre MD Primary Care Provide r Encounter Details Date Type Department Care Team (Late st Contact Info) Description 06/29/2024 Orders Only Family Medicine [address] [phone] Johnny Lancaster MD [address] [place] [address] [place] [phone] Need for RSV immunization* Allergies Active Allergy Reactions Criticality Noted Date Comments Enalapril Maleate Cough 11/12/2014 Spironolactone Itching 03/29/2024 Stopped spring 2023; took about 2 wks for itching to resolve documented as of this encounter (statuses as of 06/29/2024) Medications Medication Sig Dispensed Refills Start Date End Date Status ASPIRIN 81 MG PO TABSIndications:S/P angioplasty with [...] Release 24 Hour (toPROL XL)Indications:Palp itations,Stable angina (HCC) Take 1 Tablet by mouth at bedtime. 90 Tablet 3 11/04/2023 Active Cetirizine HCl 10 MG Oral Tablet (ZyrTEC Allergy)Indications :Itching Take 1 Tablet by mouth every night at bedtime. 90 Tablet 2 12/21/2023 Active Additional Information Patient taking differently:10 mg OralDaily(AM), Reported on 02/23/2024 Triamcinolone Acetonide 0.1 % External Cream (Aristocort)Indicat ions:Contact dermatitis, unspecified contact dermatitis type, unspecified trigger Apply topically to affected area 2 times a day 80 g 1 01/04/2024 Active amLODIPine Besylate 5 MG Oral Tablet (Norvasc)Indication s:HTN, goal below 140/90 Take 1 Tablet by mouth 2 times a day. 180 Tablet 3 02/22/2024 Active Clopidogrel Bisulfate 75 MG Oral Tablet (pLAVix)Indications :S/P angioplasty with stent TAKE ONE TABLET BY MOUTH IN THE MORNING 100 Tablet 1 02/21/2024 Active Famotidine 20 MG Oral Tablet (Pepcid)Indications :Gastroesophageal reflux disease without esophagitis TAKE ONE TABLET BY MOUTH TWICE A DAY 180 Tablet 1 02/21/2024 Active Additional Information Patient taking differently: 20 mg Oral Daily(AM), Reported on 02/23/2024 Pantoprazole Sodium 40 MG Oral Tablet Delayed Release (Protonix) TAKE ONE TABLET BY MOUTH EVERY DAY 100 Tablet 1 02/21/2024 Active Fish Oil 1000 MG Oral CapsuleIndications: Dyslipidemia, goal LDL below 160 Take 1 Capsule by mouth in the morning and 1 Capsule before bedtime. 60 Capsule 5 02/21/2024 Active Losartan Potassium 100 MG Oral Tablet (Cozaar)Indications :Chronic kidney disease, stage 3a (HCC) Take 1 Tablet by mouth daily. 90 Tablet 3 02/22/2024 Active Torsemide 5 MG Oral Tablet (Demadex)Indication s:Chronic kidney disease, stage 3a (HCC) TAKE ONE TABLET BY MOUTH IN THE MORNING 90 Tablet 3 04/12/2024 5 Active hydroCHLOROthiazide 25 MG Oral Tablet (Hydrodiuril)Indica tions:HTN, goal below 140/90 Take 1 Tablet by mouth in the morning. 90 Tablet 3 04/28/2024 Active Gabapentin 100 MG Oral Capsule (Neurontin)Indicati ons:Cervical radicular pain Take 1 Capsule by mouth in the morning and 1 Capsule at noon and 1 Capsule before bedtime. 270 Capsule 1 04/28/2024 Active Rosuvastatin Calcium 40 MG Oral Tablet (Crestor)Indication s:Dyslipidemia, goal LDL below 70 TAKE ONE TABLET BY MOUTH IN THE MORNING 100 Tablet 1 04/30/2024 5 Active RSVPreF3 Vac Recomb Adjuvanted 120 MCG/0.5ML Intramuscular Suspension Reconstituted (Arexvy)Indications :Need for RSV immunization Inject 0.5 mL into a large muscle once for 1 dose. 0.5 mL 06/29/2024 4 Active documented as of this encounter (statuses as of 06/29/2024) Active Problems Problem Noted Date Diagnosed Date [...] Impotence of organic origin 04/18/2008 Atherosclerosis of [place] co ronary artery of [place] heart with stable angina pectoris 01/01/2008 S/P angioplasty with stent 06/30/2006 Esophageal reflux 10/29/2005 ADVANCE DIRECTIVE INFORMATION 08/21/2005 Overview: No, Advance Directive brochure given to patient at prior appointment. documented as of this encounter (statuses as of 06/29/2024) Resolved Problems Problem Noted Date Diagnosed Date Resolved Date Cough due to RANDALL inhibitor 11/12/2014 0 01/30/2019 Hyperkalemia 11/12/2014 11/16/2018 Pre-operative cardiovascular examination 09/11/2014 11/12/2014 [employer] Other*[id number] 11/23/2012 10/27/2016 Overview: Study Title: Genomic Markers for Patients with Cardiovascular Disease Project # [id number] Human Resources Operations Specialist: Laine Cadena MD [phone] Abnormal stress echocardiogram 11/17/2012 01/30/2019 Impotence of organic origin 04/18/2008 11/16/2018 Chest pain 08/31/2006 01/30/2019 HIP & THIGH INJURY NOS 12/05/200401/30 Rosacea 02/23/2001 01/30/2019 Dyslipidemia, goal to be determined 08/29/2009 Overview: Per Lipid Taxonomy. HYPERTENSION NOS 08/08/2009 Overview: Modified per HTN protocol #16. documented as of this encounter (statuses as of 06/29/2024) Immunizations Name Administration Dates Next Due COVID-19 mRNA, LNP-s, No Pre serve, 2-Dose Series ([employer]) 01/01/2022,06/19/2021,11/25/2020,10/21 COVID-19, MRNA-LNP, 23-24, P F, 30 MCG/0.3 mL, 12 YRS AND ABOVE, IM ([employer]-Comirnaty) 10/19/2023 H1N1 2009 Influenza, IM 09/24/2009 Pneumococcal [...] No 11/15/2023 Does the [facility] source [facility]? (Household - for [...] 08/29/2024 11:00 AM EST Office Visit Cardiology, [facility] [address] [place] [address] Pennie Naranjo CRNP [address] [place] [address] 09/05/2024 10:00 AM EST Office Visit Otolaryngology [facility] [address] [place] [address] Renata Garcia PA-C [address] [place] [address] 11/17/2024 9:00 AM EST Nurse Only Ancillary [address] [place] [address] [place], Nurse Annual Wellness [address] [place] [address] [place] [address] 01/31/2025 3:20 PM EDT Office Visit Family Medicine [address] [place] [phone] Sabino Izaguirre MD [address] [place] [address] [place] [address] Scheduled Procedures Name Priority Associated Diagnoses Date/Ti me COLONOSCOPY FLEXIBLE PROXIMA L DIAGNOSTIC Recall History of colonic polyps Health Maintenance Due Date Last Done Comments Cologuard 1998 Fecal Occult Blood Test 1998 Sigmoidoscopy 1998 COVID-19 Vaccine ( season) 2024 10/19/2023, 08/05/2022, 01/01/2022, Additional history exists CKD PHOS USE SMARTSET 13644 06/11/2024 06/11/2023 HbA1c 06/11/2024 06/11/2023, 0904/2022, 04/02/2021, Additional history exists GFR 09/29/2024 03/29/2024, 09/22, 07/05/2023, Additional history exists CKD HGB USE SMARTSET 74128 10/19/202410/19, 07/05/2023, 06/28/2023, Additional history exists Adult [...] this encounter Medical Devices Implanted Type Area Payable Representative Device Identifier Shelf Expiration Date Model / Serial / Lot Mesh Preshaped Large - [id number] Implanted:Qty : 1 on 12/31/2014 by Jj Weston MD at OR [facility] Right: Groin CR BARD : DAVOL 09/19/2018 [id number] / / [id number] Suture [place] Dbl Load 4.75mm - [id number] Implanted:Qty : 1 on 03/15/2020 by Kar Berry DO at OR [facility] Right: Shoulder [employer] 12/18/2021 AR-[id number]- 2 / / [id number] documented as of this encounter Visit Diagnoses Diagnosis Need for RSV immunization- Primary Need for prophylactic vaccination and inoculation against respiratory syncytial virus documented in this encounter Advance Directives * Full Code (Latest Code Status on File) Date Activated Date Inactivated Comments 11/23/2012 8:27 PM 11/24/2012 8:07 PM This order ref lects the patients wishes and were consensually agreed upon. Question Answer Comments Discussion of Advance Directives occurred with: Patient/Family Care Teams Hard Candy Batch Mixer Relationship Specialty Start Date End Date Sabino Izaguirre MD [address] [place] [address] [place] [phone] PCP - General Family Medicine 01/21/21 documented as of this encounter
--- OUTSIDE RECORDS SUMMARY | 2024-10-31 17:34 | External Medical Summary | Summary of Care ---
Author Name Unknown Organization [facility] Address [address] [facility] [place] [address] Phone [phone] Care Team Providers Care Manager Construction Name Role Phone Sabino Izaguirre MD Primary Care Provide r Reason for Visit * Reason Onset Date Comments Pre Op Discussion 02/22/2024 Encounter Details Date Type Department Care Team (Late st Contact Info) Description 02/22/2024 Telephone OR [facility], Operating [facility] [address] [place] [phone] Belkis Arambula, [address] [place] [address] Pre Op Discussion Allergies Active Allergy Reactions Criticality Noted Date Comments Enalapril Maleate Cough 11/12/2014 Spironolactone Itching 03/29/2024 Stopped spring 2023; took about 2 wks for itching to resolve documented as of this encounter (statuses as of 05/23/2024) Medications Medication Sig Dispensed Refills Start Date [...] at bedtime. 90 Tablet 3 4 Active Cetirizine HCl 10 MG Oral Tablet (ZyrTEC Allergy)Indications: Itching Take 1 Tablet by mouth every night at bedtime. 90 Tablet 2 4 Active Additional Information Patient taking differently:10 mg OralDaily(AM), Reported on 02/23/2024 Triamcinolone Acetonide 0.1 % External Cream (Aristocort)Indicati ons:Contact dermatitis, unspecified contact dermatitis type, unspecified trigger Apply topically to affected area 2 times a day 80 g 1 4 Active amLODIPine Besylate 5 MG Oral Tablet (Norvasc)Indications :HTN, goal below 140/90 Take 1 Tablet by mouth 2 times a day. 180 Tablet 3 4 Active Clopidogrel Bisulfate 75 MG Oral Tablet (pLAVix)Indications: S/P angioplasty with stent TAKE ONE TABLET BY MOUTH IN THE MORNING 100 Tablet 1 4 Active Famotidine 20 MG Oral Tablet (Pepcid)Indications: Gastroesophageal reflux disease without esophagitis TAKE ONE TABLET BY MOUTH TWICE A DAY 180 Tablet 1 4 02/21/20 25 Active Additional Information Patient taking differently: 20 mg Oral Daily(AM), Reported on 02/23/2024 Pantoprazole Sodium 40 MG Oral Tablet Delayed Release (Protonix) TAKE ONE TABLET BY MOUTH EVERY DAY 100 Tablet 1 4 02/21/20 25 Active Fish Oil 1000 MG Oral CapsuleIndications:D yslipidemia, goal LDL below 160 Take 1 Capsule by mouth in the morning and 1 Capsule before bedtime. 60 Capsule 5 4 Active Losartan Potassium 100 MG Oral Tablet (Cozaar)Indications: Chronic kidney disease, stage 3a (HCC) Take 1 Tablet by mouth daily. 90 Tablet 3 4 Active Nitroglycerin 0.4 MG Sublingual Tablet Sublingual (Nitrostat)Indicatio ns:Coronary atherosclerosis of [place] coronary artery,Stable angina (HCC) PLACE 1 TABLET UNDER THE TONGUE EVERY 5 MINUTES NEEDED FOR PAIN, CHEST 25 Tablet 5 3 02/29/20 24 Additional Information Patient not taking.Reported on 02/23/2024 Torsemide 5 MG Oral Tablet (Demadex)Indications :Chronic kidney disease, stage 3a (HCC) TAKE ONE TABLET BY MOUTH IN THE MORNING 90 Tablet 3 3 04/11/20 24 Discontinue d(Refill) Gabapentin 100 MG Oral Capsule (Neurontin)Indicatio ns:Cervical radicular pain Take 1 Capsule by mouth in the morning and 1 Capsule at noon and 1 Capsule before bedtime. 270 Capsule 1 3 04/28/20 24 Discontinue d(Refill) hydroCHLOROthiazide 25 MG Oral Tablet (Hydrodiuril)Indicat ions:HTN, goal below 140/90 Take 1 Tablet by mouth in the morning. 90 Tablet 3 3 04/28/20 24 Discontinue d(Refill) Sildenafil Citrate 50 MG Oral Tablet TAKE ONE TABLET BY MOUTH 1 TO 4 HOURS BEFORE INTERCOURSE 4 Tablet 2 3 04/10/20 24 Discontinue d(Refill) Rosuvastatin Calcium 40 MG Oral Tablet (Crestor)Indications :Dyslipidemia, goal LDL below 70 TAKE ONE TABLET BY MOUTH IN THE MORNING 90 Tablet 1 4 04/28/20 24 Discontinue d(Refill) documented as of this encounter (statuses as of 05/23/2024) Active Problems Problem Noted Date Diagnosed Date [...] Impotence of organic origin 04/18/2008 Atherosclerosis of [place] ronary artery of [place] heart with stable angina pectoris 01/01/2008 S/P angioplasty with stent 06/30/2006 Esophageal reflux 10/29/2005 ADVANCE DIRECTIVE INFORMATION 08/21/2005 Overview: No, Advance Directive brochure given to patient at prior appointment. documented as of this encounter (statuses as of 05/23/2024) Resolved Problems Problem Noted Date Diagnosed Date Resolved Date Cough due to RANDALL inhibitor 11/12/2014 0 01/30/2019 Hyperkalemia 11/12/2014 11/16/2018 Pre-operative cardiovascular examination 09/11/2014 11/12/2014 [employer] Other*[id number] 11/23/2012 10/27/2016 Overview: Study Title: Genomic Markers for Patients with Cardiovascular Disease Project # [id number] Five Roll Refiner Batch Mixer: Laine Cadena MD [phone] Abnormal stress echocardiogram 11/17/2012 01/30/2019 Impotence of organic origin 04/18/2008 11/16/2018 Chest pain 08/31/2006 01/30/2019 HIP & THIGH INJURY NOS 12/05/200401/30 Rosacea 02/23/2001 01/30/2019 Dyslipidemia, goal to be determined 08/29/2009 Overview: Per Lipid Taxonomy. HYPERTENSION NOS 08/08/2009 Overview: Modified per HTN protocol #16. documented as of this encounter (statuses as of 05/23/2024) Immunizations Name Administration Dates Next Due COVID-19 [...] 11:00 AM EST Office Visit Cardiology, [facility] [address] [place] [address] Pennie Naranjo CRNP [address] [facility] [place] [address] 09/05/2024 1:40 PM EST Office [facility] [place] [address] Renata Garcia PA-C [address] [place] [address] 11/17/2024 9:00 AM EST Nurse Only Ancillary [address] [place] [address] [place], Nurse Annual [address] [place] [address] 01/31/2025 3:20 PM EDT Office Visit Family Medicine [address] [place] [phone] Sabino Izaguirre MD [address] [place] [address] [place] [address] Scheduled Procedures Name Priority Associated Diagnoses Date/Ti me COLONOSCOPY FLEXIBLE PROXIMA L DIAGNOSTIC Recall History of colonic polyps Health Maintenance Due Date Last Done Comments Cologuard 1998 Fecal Occult Blood Test 1998 Sigmoidoscopy 1998 COVID-19 Vaccine ( season) 2024 10/19/2023, 08/05/2022, 01/01/2022, Additional history exists Influenza Vaccine (FLU shot) (#1) 2024 06/21/2023, 05/28/2022, 05/28/2022, Additional history exists CKD PHOS USE SMARTSET 23923 06/11/2024 06/11/2023 HbA1c 06/11/2024 06/11/2023, 09/0 04/2022, 04/02/2021, Additional history exists GFR 09/29/2024 03/29/2024, 09/22, 07/05/2023, Additional history exists CKD HGB USE SMARTSET 77747 10/19/202410/19, 07/05/2023, 06/28/2023, Additional history exists Adult [...] this encounter Medical Devices Implanted Type Area Desilverizer Device Identifier Shelf Expiration Date Model / Serial / Lot Mesh Preshaped Large - [id number] Implanted:Qty : 1 on 12/31/2014 by Jj Weston MD at OR [facility] Right: Groin CR BARD : DAVOL 09/19/2018 [id number] / / [id number] Suture [place] Dbl Load 4.75mm - [id number] Implanted:Qty : 1 on 03/15/2020 by Kar Berry DO at OR [facility] Right: Shoulder [employer] 12/18/2021 AR-2324BCT- 2 / / [id number] documented as of this encounter Advance Directives * Full Code (Latest Code Status on File) Date Activated Date Inactivated Comments 11/23/2012 8:27 PM 11/24/2012 8:07 PM This order ref lects the patients wishes and were consensually agreed upon. Question Answer Comments Discussion of Advance Directives occurred with: Patient/Family Care Teams Manager Construction Relationship Specialty Start Date End Date Sabino Izaguirre MD [address] [place] [address] [place] [phone] PCP - General Family Medicine 01/21/21 documented as of this encounter
--- OUTSIDE RECORDS SUMMARY | 2024-10-31 17:34 | External Medical Summary ---
Author Name Unknown Address Unknown Organization K01:[facility]ORY [facility] [place] - [address] [address] [facility] [address] [facility] [address] Laboratory Report Ordering Provider Test Date Status JASON VILLA 07/03/2024 12:14:07 Final Observation Date Value Abnormality Reference (Units ) Status CRP, low-sensitivity 07/03/2024 12:14:07 15 Above high normal <=5 (mg/L) Final Performing Location LABORATORY C - [address] [facility] [address]
--- OUTSIDE RECORDS SUMMARY | 2024-10-31 17:34 | External Medical Summary ---
Author Name Unknown Address Unknown Organization K01:[facility] [place] [address] [facility] [address] Laboratory Report Ordering Provider Test Date Status JASON VILLA 07/03/2024 12:14:07 Final Observation Date Value Abnormality Reference (Units ) Status Retic, % (auto) 07/03/2024 12:14:07 1.37 0.80-1.90 (%) Final Reticulocytes, Absolute 07/03/2024 12:14:07 62.1 31.3-100.1 (K/uL) Final Reticulocyte fraction, immature 07/03/2024 12:14:07 13.4 2.5-20.6 (%) Final Reticulocyte HGB 07/03/2024 12:14:07 32.1 29.7-37.4 (pg) Final Performing Location [facility] [place] [facility] [address] [facility] [address]
--- OUTSIDE RECORDS SUMMARY | 2024-10-31 17:34 | External Medical Summary | Summary of Care ---
Author Name Unknown Organization [facility] Address [address] [address] Phone [phone] Care Team Providers Care Jacker Feeder Name Role Phone Sabino Izaguirre MD Primary Care Provide r Reason for Referral * Evaluate & Treat - Unlimited Visits (Within 30 days (routine)) - Authorized Specialty Diagnoses / Procedures Referred By Contact Referred To Contact GI NUTRITION/IM / Gastroenterology Diagnoses BMI 31.0-31.9,adult Sabino Izaguirre MD [address] [place] [address] [place] [id number] Referral ID Status Reason Start Date Expiration Date Visits Requested Visits Authorized [id number] Authorized Specialty Services Required 05/17/[phone] Question Answer Referral Priority Within 30 days (routine) Where should this appointment be scheduled? [facility] For what condition is the patient being seen? Weight Loss Medication Is this referral for a GLP1 medication? Yes Does patient have BMI >35? No Comments THE PATIENT WILL NOT BE PRESCRIBED GLP-1 MEDICATIONS UNLESS: *Documentation of an unsuccessful trial of losing at least 5% of weight loss *Documentation the patient has had tried and failed two [2] non-GLP1 agonists (Phentermine and Wellbutrin/ Naltrexone) *Documentation of two [2] or more appointments discussing weight loss and lifestyle changes *Documentation of a blood pressure and weight within the EMR before initiation of the GLP-1 or non-GLP-1 medications REFERRING PROVIDER MUST ACKNOWLEDGE ALL OF THE CONDITIONS ABOVE ARE MET AND HAVE A BMI >35. IF THESE CONDITIONS ARE NOT MET THE PATIENT WILL NOT BE PRESCRIBED GLP- 1 PRESCRIPTIONS. Reason for Visit * Reason Comments Re-Check 6 mo Encounter Details Date Type Department Care Team (Late st Contact Info) Description 05/17/2024 3:20 PM EDT Office Visit Family Medicine [address] [place] [phone] Sabino Izaguirre MD [address] [place] [address] [place] [phone] Prediabetes*; Erectile dysfunction, unspecified erectile dysfunction type; BMI 31.0-31.9,adult; HTN, GOAL BELOW 140/90; Chronic kidney disease, stage 3a ([facility]); Atheros[place] of [place] coronary artery of [place] heart with stable angina pectoris ([facility]) Allergies Active Allergy Reactions Criticality Noted Date Comments Enalapril Maleate Cough 11/12/2014 Spironolactone Itching 03/29/2024 Stopped spring 2023; took about 2 wks for itching to resolve documented as of this encounter (statuses as of 05/17/2024) Medications Medication Sig Dispensed Refills Start Date End Date Status ASPIRIN 81 MG PO TABSIndications:S /P angioplasty with stent 1 tablets daily 30 Tab 11 11/24/2012 Active Additional Information Patient taking differently: (No route reported), Reported on 09/25/2022 fluticasone (FLONASE) 50 MCG/ACT nasal spray Administer 2 Sprays into each nostril daily as needed for Allergies. 1 Inhaler 5 11/02/2016 Active Multiple Vitamins TABS Take by mouth daily. Active Docusate Sodium 100 MG Oral Capsule (Colace)Indicatio ns:Constipation, unspecified constipation type TAKE 1 CAPSULE BY MOUTH EVERY MORNING 90 Capsule 1 05/27/2022 Active ProAir HFA 108 (90 Base) MCG/ACT Inhalation Aerosol SolutionIndicatio ns:Bronchitis, complicated Inhale 2 Puffs by mouth every 4 hours as needed for Wheezing. 18 g 2 10/06/2022 Active Metoprolol Succinate ER 25 MG Oral Tablet Extended Release 24 Hour (toPROL XL)Indications:Pa lpitations,Stable angina (HCC) Take 1 Tablet by mouth at bedtime. 90 Tablet 3 11/04/2023 Active Cetirizine HCl 10 MG Oral Tablet (ZyrTEC Allergy)Indicatio ns:Itching Take 1 Tablet by mouth every night at bedtime. 90 Tablet 2 12/21/2023 Active Additional Information Patient taking differently:10 mg OralDaily(AM), Reported on 02/23/2024 Triamcinolone Acetonide 0.1 % External Cream (Aristocort)Indic ations:Contact dermatitis, unspecified contact dermatitis type, unspecified trigger Apply topically to affected area 2 times a day 80 g 1 01/04/2024 Active amLODIPine Besylate 5 MG Oral Tablet (Norvasc)Indicati ons:HTN, goal below 140/90 Take 1 Tablet by mouth 2 times a day. 180 Tablet 3 02/22/2024 Active Clopidogrel Bisulfate 75 MG Oral Tablet (pLAVix)Indicatio ns:S/P angioplasty with stent TAKE ONE TABLET BY MOUTH IN THE MORNING 100 Tablet 1 02/21/2024 Active Famotidine 20 MG Oral Tablet (Pepcid)Indicatio ns:Gastroesophage al reflux disease without esophagitis TAKE ONE TABLET BY MOUTH TWICE A DAY 180 Tablet 1 02/21/2024 Active Additional Information Patient taking differently: 20 mg Oral Daily(AM), Reported on 02/23/2024 Pantoprazole Sodium 40 MG Oral Tablet Delayed Release (Protonix) TAKE ONE TABLET BY MOUTH EVERY DAY 100 Tablet 1 02/21/2024 Active Fish Oil 1000 MG Oral CapsuleIndication s:Dyslipidemia, goal LDL below 160 Take 1 Capsule by mouth in the morning and 1 Capsule before bedtime. 60 Capsule 5 02/21/2024 Active Losartan Potassium 100 MG Oral Tablet (Cozaar)Indicatio ns:Chronic kidney disease, stage 3a (HCC) Take 1 Tablet by mouth daily. 90 Tablet 3 02/22/2024 Active Torsemide 5 MG Oral Tablet (Demadex)Indicati ons:Chronic kidney disease, stage 3a (HCC) TAKE ONE TABLET BY MOUTH IN THE MORNING 90 Tablet 3 04/12/2024 Active hydroCHLOROthiazi de 25 MG Oral Tablet (Hydrodiuril)Nubia cations:HTN, goal below 140/90 Take 1 Tablet by mouth in the morning. 90 Tablet 3 04/28/2024 Active Gabapentin 100 MG Oral Capsule (Neurontin)Indica tions:Cervical radicular pain Take 1 Capsule by mouth in the morning and 1 Capsule at noon and 1 Capsule before bedtime. 270 Capsule 1 04/28/2024 Active Rosuvastatin Calcium 40 MG Oral Tablet (Crestor)Indicati ons:Dyslipidemia, goal LDL below 70 TAKE ONE TABLET BY MOUTH IN THE MORNING 100 Tablet 1 04/30/2024 5 Active Tadalafil 20 MG Oral Tablet (Cialis)Indicatio ns:Erectile dysfunction, unspecified erectile dysfunction type Take 1 Tablet by mouth once for 1 dose. prior to intercourse, no more than 1 dose in 24 hours 10 Tablet 11 05/17/2024 4 Active Sildenafil Citrate 50 MG Oral Tablet TAKE ONE TABLET BY MOUTH 1 TO 4 HOURS BEFORE INTERCOURSE 4 Tablet 2 04/10/2024 4 Discontinue d(Medicatio n List Clean Up) documented as of this encounter (statuses as of 05/17/2024) Active Problems Problem Noted Date Diagnosed Date [...] organic origin 04/18/2008 Atherosclerosis of [place] co ronary artery of [place] heart with stable angina pectoris 01/01/2008 S/P angioplasty with stent 06/30/2006 Esophageal reflux 10/29/2005 ADVANCE DIRECTIVE INFORMATION 08/21/2005 Overview: No, Advance Directive brochure given to patient at prior appointment. documented as of this encounter (statuses as of 05/17/2024) Resolved Problems Problem Noted Date Diagnosed Date Resolved Date Cough due to RANDALL inhibitor 11/12/2014 0 01/30/2019 Hyperkalemia 11/12/2014 11/16/2018 Pre-operative cardiovascular examination 09/11/2014 11/12/2014 [employer] Other*[id number] 11/23/2012 10/27/2016 Overview: Study Title: Genomic Markers for Patients with Cardiovascular Disease Project # [id number] [employer] Consultant: Laine Cadena MD [phone] Abnormal stress echocardiogram 11/17/2012 01/30/2019 Impotence of organic origin 04/18/2008 11/16/2018 Chest pain 08/31/2006 01/30/2019 HIP & THIGH INJURY NOS 12/05/200401/30 Rosacea 02/23/2001 01/30/2019 Dyslipidemia, goal to be determined 08/29/2009 Overview: Per Lipid Taxonomy. HYPERTENSION NOS 08/08/2009 Overview: Modified per HTN protocol #16. documented as of this encounter (statuses as of 05/17/2024) Immunizations Name Administration Dates Next Due COVID-19 mRNA, LNP-s, No Pre serve, 2-Dose Series (Prosetta) 01/01/2022,06/19/2021,11/25/2020,10/21 COVID-19, MRNA-LNP, 23-24, P F, 30 [...] Preserve, IM 06/26/2019 TD, Preservative Free 11/16/2018 TDAP, Age 5 [...] Sign Reading Time Taken Comments Blood Pressure 132/70 05/17/2024 3:17 PM EDT Pulse 71 05/17/2024 3:17 PM EDT Temperature 36.5 C (97.7 F) 05/17/2024 3:17 PM ED T Respiratory Rate - - Oxygen Saturation 93% 05/17/2024 3:17 PM EDT Inhaled Oxygen Concentration - - Weight 97.5 kg (215 lb) 05/17/2024 3:17 PM EDT Height - - Body Mass Index 31.73 04/04/2024 11:33 AM EDT documented in this encounter Progress Notes * Sabino Izagiurre MD - 05/17/2024 3:14 PM EDT Subjective: HPI: Enzo Shaw is a 68 year old male with hx of HLD, Prediabetes, Lung granuloma, CAD s/p stent ([facility]), HTN, HLD, GERD, Stable ascending aortic aorta enlargement (4.1 CM), LVH, Bradycardia, CKD III, Cspine DDD seen for CAD s/p stent: - recent was admitted to the hospital for L arm pain ---- neg work for [employer] - on aspirin, plavix and crestor - denied any CP - pt recently did a 30 [id number] Prediabetes: - diet controlled HTN with CKD III: - on amlodipine 5mg BID, HCTZ 25mg daily, losartan 100mg daily, Metoprolol ER 25mg daily, [id number] daily - compliant with meds Would like to try something else for ED Pt is trouble losing weight - stopped eating sweats - walking more Patient Active Problem List Diagnosis ADVANCE DIRECTIVE INFORMATION Esophageal reflux S/P angioplasty with stent Atherosclerosis of [place] coronary artery of [place] heart with stable angina pectoris (HCC) HTN, [...] (Protonix) TAKE ONE TABLET BY MOUTH EVERY [id number] Tablet 1 Fish Oil 1000 MG Oral [...] BY MOUTH IN THE MORNING 100 Tablet1 Tadalafil 20 MG Oral Tablet (Cialis) Take 1 Tablet by mouth once for 1 dose. prior to intercourse, no more than 1 dose in 24 hours 10 Tablet 11 No current facility-administered medications for this visit. Past Medical History: Diagnosis Date Abnormal stress echocardiogram 11/17/2012 Calculus of kidney Cervical stenosis of spinal canal 02/03/2024 moderate to severe C6-7 Chest pain 02/03/2024 probably musculoskeletal or neurologic Coronary atherosclerosis of [place] coronary artery 01/01/2008 Cough due to RANDALL inhibitor 11/12/2014 Dyslipidemia, goal to be determined GERD (gastroesophageal reflux disease) Impotence of organic origin 04/18/2008 Primary hypertension Rosacea S/P angioplasty with stent 09/10/2005 Circumflex Past Surgical History: Procedure Laterality Date ARTHNATACHA Felix,W/ROTATOR CUFF Right 03/15/2020 ARTHROSCOPY SHOULDER ROTATOR CUFF performed by Kar Berry DO at OR [facility] CARDIAC ANGIOPLASTY, PERCUTANEOUS, 1 ARTERY 11/23/2012 PTCA, CARDIAC ANGIOPLASTY, PERCUTANEOUS, 1 ARTERY performed by Roc Wilkinson MD at CARDIAC LABS [facility] CERVICAL SPINE W/CONTRAST MATERIAL 02/04/2024 straightening of cervical lordosis, severe disc space narrowing at C6-7 COLONOSCOPY, DIAGNOSTIC (RECTUM) 08/07/2011 few diverticula COLONOSCOPY, DIAGNOSTIC (RECTUM) 02/08/2017 adenomatous & hyperplastic polyps, diverticulosis, repeat 3 yrs/COLONOSCOPY FLEXIBLE PROXIMAL DIAGNOSTIC performed by Pedro Mejia MD at ENDOSCOPY [facility] COLONOSCOPY, DIAGNOSTIC (RECTUM) 06/05/2020 hyperplastic polyp, repeat 1 yr / COLONOSCOPY FLEXIBLE PROXIMAL DIAGNOSTIC performed by Belkis Arambula DO at ENDOSCOPY [facility] COLONOSCOPY, DIAGNOSTIC (RECTUM) 02/28/2024 hemorrhoids/biopsies show adenomatous and hyperplastic polyps/recall 5 years/COLONOSCOPY FLEXIBLE PROXIMAL DIAGNOSTIC performed by Belkis Arambula DO at ENDOSCOPY [facility] CORONARY ANGIOGRAPHY W/LEFT HEART CATH 09/27/2013 CORONARY ANGIOGRAPHY W/LEFT HEART CATH performed by Yaneth Canada MD at CARDIAC LABS [facility] EGD, FLEXIBLE, W/BIOPSY 04/22/2007 GERD INJECT DX/THER SUBSTANCE INTERLAMINAR CERVICAL/THORACIC W IMAGE GUIDE 10/19/2022 INJECTION SPINE LUMBAR CERVICAL OR THORACIC performed by Leif Bass DO at OR [facility] INJECT DX/THER SUBSTANCE INTERLAMINAR CERVICAL/THORACIC W IMAGE GUIDE 02/04/2023 INJECTION SPINE LUMBAR CERVICAL OR THORACIC performed by Leif Bass DO at OR [facility] OTHER (INFORMATION) 1983 hernia repair- left inguinal REMOVE TONSILS & ADENOIDS, UNDER 12 REPAIR INITIAL INGUINAL HERNIA REDUCIBLE AGE 5 OR MORE Right 12/31/2014 12/31/2014 - - right REPAIR INITIAL INGUINAL HERNIA REDUCIBLE AGE 5 OR MORE performed by Jj Weston MD at OR [facility] REPAIR OF NASAL SEPTUM SHOULDER ARTHROSCOPY SURGERY Right 03/15/2020 ARTHROSCOPY SHOULDER DISTAL CLAVICLE RESECTION performed by Kar Berry DO at OR [facility] SHOULDER ARTHROSCOPY/DECOMPRESSION Right 03/15/2020 ARTHROSCOPY SHOULDER SUBACROMIAL DECOMPRESSION performed by Kar Berry DO at OR [facility] UMBIL HERNIA REPAIR (INCARCERATED) AGE 5+YR N/A 09/17/2014 09/17/2014 REPAIR UMBILICAL HERNIA AGE 5 OR OVER INCARCERATED performed by Jj Weston MD at [facility] VAS DUPLEX VENOUS UE UNILAT Left 02/04/2024 no DVT in internal jugular, subclavian, axillary or brachial veins Review of patient's allergies indicates: Allergen Reactions Enalapril Maleate Cough Spironolactone Itching Stopped spring 2023; took about 2 wks for itching to resolve Family History Problem Relation Name Age of Onset Hypertension Mother Heart Disorder Mother [place] 60's Hypertension Father Heart Disorder Father [place] 50's Heart Disorder Brother ladan Heart Disorder Brother linn Cancer Brother nasir colon Allergies Son Allergies Son Other (Other) Son pt denies hx of skin cancer for parents Neurological Disorder Daughter joy 40 ?MS Social History Tobacco Use Smoking status: Never Smokeless tobacco: Never Substance Use Topics Alcohol use: Yes Alcohol/week: 5.8 standard drinks of alcohol Types: 7 5 oz of wine per week Comment: Once a month Vaping/E-Cigarette Use Vaping/E-Cigarette Use Never User Passive Exposure No Counseling Given? No Vaping/E-Cigarette Substances Vaping/E-Cigarette Devices ROS: -Per HPI OBJECTIVE: BP 132/70 | Pulse 71 | Temp 36.5 C (97.7 F) | Wt 97.5 kg (215 lb) | SpO2 93% | BMI 31.73 kg/m| BSA 2.18 m PHYSICAL EXAM: Vitals are reviewed General:. NAD, well developed HEENT:. Normal Conjunctiva, EOMI Cardiac:. Normal S1, S2, no murmur Lungs:. CTA, no wheezing or crackles Abd:. soft, ND, NT MSK:. Normal gait Psych:. AAOx3, normal affect ASSESSMENT/PLAN: Prediabetes (Primary) - HEMOGLOBIN A1C; Future; Expected date: 08/17/2024 Erectile dysfunction, unspecified erectile dysfunction type - Tadalafil 20 MG Oral Tablet (Cialis); Take 1 Tablet by mouth once for 1 dose. prior to intercourse, no more than 1 dose in 24 hours BMI 31.0-31.9,adult - GI NUTRITION REFERRAL OP HTN, GOAL BELOW 140/90 - BP wnl Chronic kidney disease, stage 3a (HCC) - Cr wnl Atherosclerosis of [place] coronary artery of [place] heart with stable angina pectoris (HCC) - currently asymptomatic Follow Up: Return in about 6 months (around 11/17/2024). Sabino Izaguirre MD Family [place] [phone] documented in this encounter Nursing Notes * Padmini Gordillo CMA - 05/17/2024 3:14 PM EDT He is here today for a 6 mo recheck. He wants to discuss his sildenafil. It isn't working well. documented in this encounter Plan of Treatment Upcoming Encounters Date Type Department Care Team (Late st Contact Info) Description 08/29/2024 11:00 AM EST Office Visit Cardiology, [facility] [address] [place] [phone] Pennie Naranjo CRNP [address] [place] [address] 09/05/2024 1:40 PM EST Office Visit Otolaryngology [facility] [address] [place] [address] Renata Garcia PA-C [address] [place] [address] 11/17/2024 9:00 AM EST Nurse Only Ancillary [address] [place] [phone] [place], Nurse Annual [address] [place] [address] 01/31/2025 3:20 PM EDT Office Visit Family Medicine [address] [place] [phone] Sabino Izaguirre MD [address] [place] [address] [place] [address] Scheduled Orders Name Type Priority Associated Diagnoses Orde r Schedule HEMOGLOBIN A1C Lab Routine Prediabetes Expected: 08/17/2024, Expires: 05/17/2025 Scheduled Procedures Name Priority Associated Diagnoses Date/Ti me COLONOSCOPY FLEXIBLE PROXIMA L DIAGNOSTIC Recall History of colonic polyps Scheduled Referrals Name Type Priority Associated Diagnoses Orde r Schedule GI NUTRITION REFERRAL OP Referral Within 30 days (routine) BMI 31.0-31.9,adult Ordered: 05/17/2024 Health Maintenance Due Date Last Done Comments Cologuard 1998 Fecal Occult Blood Test 1998 Sigmoidoscopy 1998 COVID-19 Vaccine ( season) 2024 10/19/2023, 08/05/2022, 01/01/2022, Additional history exists Influenza Vaccine (FLU shot) (#1) 2024 06/21/2023, 05/28/2022, 05/28/2022, Additional history exists CKD PHOS USE SMARTSET 10867 06/11/2024 06/11/2023 HbA1c 06/11/2024 06/11/2023, 09/0 04/2022, 04/02/2021, Additional history exists GFR 09/29/2024 03/29/2024, 09/22, 07/05/2023, Additional history exists CKD HGB USE SMARTSET 52365 10/19/202410/19, 07/05/2023, 06/28/2023, Additional history exists Adult [...] this encounter Medical Devices Implanted Type Area Mutual Fund Sales Agent Device Identifier Shelf Expiration Date Model / Serial / Lot Mesh Preshaped Large - [id number] Implanted:Qty : 1 on 12/31/2014 by Jj Weston MD at OR [facility] Right: Groin CR BARD : DAVOL 09/19/2018 [id number] / / [id number] Suture Mammoth Dbl Load 4.75mm - [id number] Implanted:Qty : 1 on 03/15/2020 by Kar Berry DO at OR [facility] Right: Shoulder [employer] 12/18/2021 [id number] / / [id number] documented as of this encounter Visit Diagnoses Diagnosis Prediabetes- Primary Other abnormal glucose Erectile dysfunction, unspecified erectile dysfunction type BMI 31.0-31.9,adult Body Mass Index 31.0-31.9, adult HTN, GOAL BELOW 140/90 Unspecified essential hypertension Chronic kidney disease, stage 3a (HCC) Atherosclerosis of [place] coronary artery of [place] heart with stable angina pectoris (HCC) documented in this encounter Advance Directives * Full Code (Latest Code Status on File) Date Activated Date Inactivated Comments 11/23/2012 8:27 PM 11/24/2012 8:07 PM This order ref lects the patients wishes and were consensually agreed upon. Question Answer Comments Discussion of Advance Directives occurred with: Patient/Family Care Teams Jacker Feeder Relationship Specialty Start Date End Date Sabino Izaguirre MD [address] [place] [address] [place] [phone] PCP - General Family Medicine 01/21/21 documented as of this encounter"
--- OUTSIDE RECORDS SUMMARY | 2024-10-31 17:34 | External Medical Summary | Summary of Care ---
Author Name Unknown Organization [facility] Address [address] [place] [address] Phone [phone] Care Team Providers Care Student Loan Counselor Name Role Phone Sabino Izaguirre MD Primary Care Provide r Reason for Visit * Reason Onset Date Comments Remote Patient Monitoring Alert 06/13/2024 Encounter Details Date Type Department Care Team (Late st Contact Info) Description 06/13/2024 Home Monitoring Care Coordination [address] [place] [address] Ashlee Sánchez LPN HTN, goal below 130/80*; HTN, GOAL BELOW 140/90 Allergies Active Allergy Reactions Criticality Noted Date Comments Enalapril Maleate Cough 11/12/2014 Spironolactone Itching 03/29/2024 Stopped spring 2023; took about 2 wks for itching to resolve documented as of this encounter (statuses as of 06/14/2024) Medications Medication Sig Dispensed Refills Start Date [...] Tablet (Cozaar)Indication s:Chronic kidney disease, stage 3a ([facility]) Take 1 Tablet by mouth daily. 90 [...] as of this encounter (statuses as of 06/14/2024) Active Problems Problem Noted Date Diagnosed Date [...] Impotence of organic origin 04/18/2008 Atherosclerosis of [place] co ronary artery of [place] heart with stable angina pectoris 01/01/2008 S/P angioplasty with stent 06/30/2006 Esophageal reflux 10/29/2005 ADVANCE DIRECTIVE INFORMATION 08/21/2005 Overview: No, Advance Directive brochure given to patient at prior appointment. documented as of this encounter (statuses as of 06/14/2024) Resolved Problems Problem Noted Date Diagnosed Date Resolved Date Cough due to RANDALL inhibitor 11/12/2014 0 01/30/2019 Hyperkalemia 11/12/2014 11/16/2018 Pre-operative cardiovascular examination 09/11/2014 11/12/2014 [employer] Other*[id number] 11/23/2012 10/27/2016 Overview: Study Title: Genomic Markers for Patients with Cardiovascular Disease Project # [id number] Machine Tool Technology Instructor: Laine Cadena MD [phone] Abnormal stress echocardiogram 11/17/2012 01/30/2019 Impotence of organic origin 04/18/2008 11/16/2018 Chest pain 08/31/2006 01/30/2019 HIP & THIGH INJURY NOS 12/05/200401/30 Rosacea 02/23/2001 01/30/2019 Dyslipidemia, goal to be determined 08/29/2009 Overview: Per Lipid Taxonomy. HYPERTENSION NOS 08/08/2009 Overview: Modified per HTN protocol #16. documented as of this encounter (statuses as of 06/14/2024) Immunizations Name Administration Dates Next Due COVID-19 [...] 11/15/2023 Does the household have a [facility] hospitall[facility] source of income? (Household - for [...] Progress Notes * Jazz Gibbons RPh - 06/14/2024 2:56 PM EDT Systolic Diastolic Pulse Systolic Diastolic 133 74 Average 131 69 135 71 132 70 High 74 74 136 67 Low 63 63 122 63 126 67 Range 11 11 139 71 Count 9 9 128 68 127 67 BP at goal. No changes at this time, will continue to monitor. Jazz Gibbons RPh, PharmD Clinical Pharmacist - Community Recreation Coordinator [facility]ication [facility] 06/14/2024, 2:57 PM Ph.[phone] * Ashlee Sánchez LPN - 06/13/2024 4:16 PM EDT Enzo Shaw [phone] Enzo Shaw is currently participating in the [facility] Hypertension Management Program and had a reading on 06/13 of 133/74. Pt has alerted for an Average BP [...] we can have them changed. Thank you! ASHLEE SÁNCHEZ LPN documented in this encounter Plan of Treatment Upcoming Encounters Date Type Department Care Team (Late st Contact Info) Description 08/29/2024 11:00 AM EST Office Visit Cardiology, [facility] [address] [place] [address] Pennie Naranjo CRNP [address] [place] [address] 09/05/2024 10:00 AM EST Office Visit Otolaryngology [facility] [address] [place] [address] Renata Garcia PA-C [address] [place] [address] 11/17/2024 9:00 AM EST Nurse Only Ancillary [address] [place] [address] [place], Nurse [address] [place] [address] 01/31/2025 3:20 PM EDT Office Visit Family Medicine [address] [place] [phone] Sabino Izaguirre MD [address] [place] [address] [place] [address] Scheduled Procedures Name Priority Associated Diagnoses Date/Ti me COLONOSCOPY FLEXIBLE PROXIMA L DIAGNOSTIC Recall History of colonic polyps Health Maintenance Due Date Last Done Comments Cologuard 1998 Fecal Occult Blood Test 1998 Sigmoidoscopy 1998 COVID-19 Vaccine ( season) 2024 10/19/2023, 08/05/2022, 01/01/2022, Additional history exists CKD PHOS USE SMARTSET 97491 06/11/2024 06/11/2023 HbA1c 06/11/2024 06/11/2023, 04/2022, 04/02/2021, Additional history exists GFR 09/29/2024 03/29/2024, 09/22, 07/05/2023, Additional history exists CKD HGB USE SMARTSET 82825 10/19/202410/19, 07/05/2023, 06/28/2023, Additional history exists Adult [...] this encounter Medical Devices Implanted Type Area Audio/Video Engineer Device Identifier Shelf Expiration Date Model / Serial / Lot Mesh Preshaped Large - [id number] Implanted:Qty : 1 on 12/31/2014 by Jj Weston MD at OR [facility] Right: Groin CR BARD : DAVOL 09/19/2018 [id number] / / [id number] Suture [place] Dbl Load 4.75mm - [id number] Implanted:Qty : 1 on 03/15/2020 by Kar Berry DO at OR [facility] Right: Shoulder [employer] 12/18/2021 [id number]- 2 / / [id number] documented as of this encounter Visit Diagnoses [...] Advance Directives occurred with: Patient/Family Care Teams Student Loan Counselor Relationship Specialty Start Date End Date Sabino Izaguirre MD [address] [place] [address] [place] [address] PCP - General Family Medicine 01/21/21 documented as of this encounter
--- OUTSIDE RECORDS SUMMARY | 2024-10-31 17:34 | External Medical Summary ---
Author Name Unknown Address Unknown Organization K01:[facility] [place] - [address] [address] Laboratory Report Ordering Provider Test Date Status JASON VILLA 07/03/2024 12:14:07 Final Observation Date Value Abnormality Reference (Units ) Status Borrelia burgdorferi IgG and IgM [Interpretation] in Serum by Immunoassay 07/03/2024 12:14:07 Positive Abnormal Negative Final Result is preliminary and no t diagnostic. Second-tier testing will be reflexively performed to confirm preliminary antibody screen result and reported separately.

Test result reported to [facility]. Performing Location [facility] [place] - [address] [place] [address]
--- OUTSIDE RECORDS SUMMARY | 2024-10-31 17:35 | External Medical Summary | Summary of Care ---
Author Name Unknown Organization [facility] Address [address] [facility] [place] [address] Phone [phone] Care Team Providers Care Event Set Up Specialist Name Role Phone Sabino Izaguirre MD Primary Care Provide r Reason for Visit * Reason Onset Date Comments Advice 02/04/2024 Urgent concerns Encounter Details Date Type Department Care Team (Late st Contact Info) Description 02/04/2024 Telephone Cardiology, [facility] [address] [place] [address] Pennei Naranjo CRNP [address] [place] [address] Advice (Urgent concerns) Allergies Active Allergy Reactions Criticality Noted Date Comments Enalapril Maleate Cough 11/12/2014 Spironolactone Itching 03/29/2024 Stopped spring 2023; took about 2 wks for itching to resolve documented as of this encounter (statuses as of 05/05/2024) Medications Medication Sig Dispensed Refills Start Date [...] as of this encounter (statuses as of 05/05/2024) Active Problems Problem Noted Date Diagnosed Date [...] Impotence of organic origin 04/18/2008 Atherosclerosis of [place] co ronary artery of [place] heart with stable angina pectoris 01/01/2008 S/P angioplasty with stent 06/30/2006 Esophageal reflux 10/29/2005 ADVANCE DIRECTIVE INFORMATION 08/21/2005 Overview: No, Advance Directive brochure given to patient at prior appointment. documented as of this encounter (statuses as of 05/05/2024) Resolved Problems Problem Noted Date Diagnosed Date Resolved Date Cough due to RANDALL inhibitor 11/12/2014 0 01/30/2019 Hyperkalemia 11/12/2014 11/16/2018 Pre-operative cardiovascular examination 09/11/2014 11/12/2014 [employer] Other*[id number] 11/23/2012 10/27/2016 Overview: Study Title: Genomic Markers for Patients with Cardiovascular Disease Project # [id number] Health Education Director: Laine Cadena MD [phone] Abnormal stress echocardiogram 11/17/2012 01/30/2019 Impotence of organic origin 04/18/2008 11/16/2018 Chest pain 08/31/2006 01/30/2019 HIP & THIGH INJURY NOS 12/05/200401/30 Rosacea 02/23/2001 01/30/2019 Dyslipidemia, goal to be determined 08/29/2009 Overview: Per Lipid Taxonomy. HYPERTENSION NOS 08/08/2009 Overview: Modified per HTN protocol #16. documented as of this encounter (statuses as of 05/05/2024) Immunizations Name Administration Dates Next Due COVID-19 mRNA, LNP-s, No Pre serve, 2-Dose Series ([employer]) 01/01/2022,06/19/2021,11/25/2020,10/21 COVID-19, MRNA-LNP, 23-24, P F, 30 [...] No 11/15/20[address] the household have a [facility] source of income? (Household - for ages [...] encounter Miscellaneous Notes * Telephone Encounter - Kelly Strickland OSA - 02/04/2024 8:36 AM EDT Person calling:Pam Relationship to patient: Number to return call: [phone] Reason for call: Concern that Dr Hanley told them he was doing a resting stress test BUT the nurse came in & told him to get his shoes he is doing a running stress test?? Pt is terrified & wants to know if changed his mind? Pt is in the [facility] right now. Please call back to advise thank you. Outcome: Sent TE Pharmacy: N/A Provider Name: Jose A / Talon documented in this encounter Plan of Treatment Upcoming Encounters Date Type Department Care Team (Late st Contact Info) Description 05/17/2024 3:20 PM EDT Office Visit Family Medicine [address] [place] [phone] Sabino Izaguirre MD [address] [place] [address] [place] [address] 08/29/2024 11:00 AM EST Office Visit Cardiology, [facility] [address] [facility] [place] [address] Pennie Naranjo CRNP [address] [place] [address] 09/05/2024 1:40 PM EST Office Visit [facility]ol[facility]ology [facility] [address] [facility] [place] [address] Renata Garcia PA-C [address] [place] [address] 11/17/2024 9:00 AM EST Nurse Only Ancillary [address] [place] [address] [place], Nurse Annual [address] [place] [address] Scheduled Procedures Name Priority Associated Diagnoses Date/Ti me COLONOSCOPY FLEXIBLE PROXIMA L DIAGNOSTIC Recall History of colonic polyps Health Maintenance Due Date Last Done Comments Cologuard 1998 Fecal Occult Blood Test 1998 Sigmoidoscopy 1998 COVID-19 Vaccine ( season) 2024 10/19/2023, 08/05/2022, 01/01/2022, Additional history exists Influenza Vaccine (FLU shot) (#1) 2024 06/21/2023, 05/28/2022, 05/28/2022, Additional history exists CKD PHOS USE SMARTSET 04296 06/11/2024 06/11/2023 HbA1c 06/11/2024 06/11/2023, 0904/2022, 04/02/2021, Additional history exists GFR 09/29/2024 03/29/2024, 09/22, 07/05/2023, Additional history exists CKD HGB USE SMARTSET 22423 10/19/202410/19, 07/05/2023, 06/28/2023, Additional history exists Adult Wellness Visit 11/15/2024 11/15/2023, 11/11/19 23 Depression Screening 11/15/2024 11/15/2023 Albumin/Creatinine Ratio 03/29/2025 024, 10/22/2022, 05/28/2022 Colonoscopy 02/27/2029 02/28/2024, 02/18, 06/05/2020, Additional history exists Colorectal Cancer Screening 02/27/2029 DTaP,Tdap,and Td Vaccines (4 - Td or [...] encounter Medical Devices Implanted Type Area Supervisor Border Department Device Identifier Shelf Expiration Date Model / Serial / Lot Mesh Preshaped Large - [id number] Implanted:Qty : 1 on 12/31/2014 by Jj Weston MD at OR [facility] Right: Groin CR BARD : DAVOL 09/19/2018 [id number] / / [id number] Suture [place] Dbl Load 4.75mm - [id number] Implanted:Qty : 1 on 03/15/2020 by Kar Berry DO at OR [facility] Right: Shoulder [employer] 12/18/2021 AR-2324BCT- 2 / / [id number] documented as of this encounter Advance Directives * Full Code (Latest Code Status on File) Date Activated Date Inactivated Comments 11/23/2012 8:27 PM 11/24/2012 8:07 PM This order ref lects the patients wishes and were consensually agreed upon. Question Answer Comments Discussion of Advance Directives occurred with: Patient/Family Care Teams Event Set Up Specialist Relationship Specialty Start Date End Date Sabino Izaguirre MD [address] [place] [address] [place] [address] PCP - General Family Medicine 01/21/21 documented as of this encounter
--- OUTSIDE RECORDS SUMMARY | 2024-10-31 17:35 | External Medical Summary | Summary of Care ---
Author Name Unknown Organization [facility] Address [address] [place] [address] Phone [phone] Care Team Providers Care Tricot Knitting Machine Operator Name Role Phone Sabino Izaguirre MD Primary Care Provide r Reason for Visit * Reason Onset Date Comments Remote Patient Monitoring Alert 05/08/2024 Encounter Details Date Type Department Care Team (Late st Contact Info) Description 05/08/2024 Home Monitoring Care Coordination [address] [place], [place] [id number] Iza Davis LPN HTN, goal below 130/80*; HTN, GOAL BELOW 140/90 Allergies Active Allergy Reactions Criticality Noted Date Comments Enalapril Maleate Cough 11/12/2014 Spironolactone Itching 03/29/2024 Stopped spring 2023; took about 2 wks for itching to resolve documented as of this encounter (statuses as of 05/09/2024) Medications Medication Sig Dispensed Refills Start Date [...] mouth daily. 90 Tablet 3 02/22/2024 Active Sildenafil Citrate 50 MG Oral Tablet TAKE ONE TABLET BY MOUTH 1 TO 4 HOURS BEFORE INTERCOURSE 4 Tablet 2 04/10/2024 Active Torsemide 5 MG Oral Tablet (Demadex)Indicatio [...] as of this encounter (statuses as of 05/09/2024) Active Problems Problem Noted Date Diagnosed Date [...] Impotence of organic origin 04/18/2008 Atherosclerosis of [place] co ronary artery of [place] heart with stable angina pectoris 01/01/2008 S/P angioplasty with stent 06/30/2006 Esophageal reflux 10/29/2005 ADVANCE DIRECTIVE INFORMATION 08/21/2005 Overview: No, Advance Directive brochure given to patient at prior appointment. documented as of this encounter (statuses as of 05/09/2024) Resolved Problems Problem Noted Date Diagnosed Date Resolved Date Cough due to RANDALL inhibitor 11/12/2014 0 01/30/2019 Hyperkalemia 11/12/2014 11/16/2018 Pre-operative cardiovascular examination 09/11/2014 11/12/2014 [employer] Other*[id number] 11/23/2012 10/27/2016 Overview: Study Title: Genomic Markers for Patients with Cardiovascular Disease Project # [id number] Swimming Pool Service Technician: Laine Cadena MD [phone] Abnormal stress echocardiogram 11/17/2012 01/30/2019 Impotence of organic origin 04/18/2008 11/16/2018 Chest pain 08/31/2006 01/30/2019 HIP & THIGH INJURY NOS 12/05/200401/30 Rosacea 02/23/2001 01/30/2019 Dyslipidemia, goal to be determined 08/29/2009 Overview: Per Lipid Taxonomy. HYPERTENSION NOS 08/08/2009 Overview: Modified per HTN protocol #16. documented as of this encounter (statuses as of 05/09/2024) Immunizations Name Administration Dates Next Due COVID-19 mRNA, LNP-s, No Pre serve, 2-Dose Series ([employer]) 01/01/2022,06/19/2021,11/25/2020,10/21 COVID-19, MRNA-LNP, 23-24, P F, 30 [...] Progress Notes * Jazz Gibbons RPh - 05/09/2024 10:13 AM EDT Systolic Diastolic Pulse Systolic Diastolic 131 67 Average 129 72 137 77 127 74 High 77 77 140 75 Low 65 65 131 71 132 72 Range 12 12 125 73 Count 8 8 112 65 Readings overall at goal. No changes at this time. Jazz Gibbnos RPh, PharmD Clinical Pharmacist - Pin Machine Tender Medication Therapy [facility] 05/09/2024, 10:13 AM [phone] * Iza Davis LPN - 05/08/2024 1:13 PM EDT Enzo Shaw [phone] Enzo Shaw is currently participating in the [facility] Hypertension Management Program and had a reading on 05/08/24 of 137/77. Pt has alerted for an Average BP [...] 3:20 PM EDT Office Visit Family Medicine [address] [place] [phone] Sabino Izaguirre MD [address] [place] [address] [place] [address] 08/29/2024 11:00 AM EST Office Visit Cardiology, [facility] [address] [place] [address] Pennie Naranjo CRNP [address] [place] [address] 09/05/2024 1:40 PM EST Office Visit Otolaryngology [facility] [address] [place] [address] Renata Garcia PA-C [address] [place] [address] 11/17/2024 9:00 AM EST Nurse Only Ancillary [place] [place] [address] [place], Nurse [address] [place] [address] Scheduled Procedures Name Priority Associated Diagnoses Date/Ti me COLONOSCOPY FLEXIBLE PROXIMA L DIAGNOSTIC Recall History of colonic polyps Health Maintenance Due Date Last Done Comments Cologuard 1998 Fecal Occult Blood Test 1998 Sigmoidoscopy 1998 COVID-19 Vaccine ( season) 2024 10/19/2023, 08/05/2022, 01/01/2022, Additional history exists Influenza Vaccine (FLU shot) (#1) 2024 06/21/2023, 05/28/2022, 05/28/2022, Additional history exists CKD PHOS USE SMARTSET 94746 06/11/2024 06/11/2023 HbA1c 06/11/2024 06/11/2023, 0904/2022, 04/02/2021, Additional history exists GFR 09/29/2024 03/29/2024, 09/22, 07/05/2023, Additional history exists CKD HGB USE SMARTSET 08258 10/19/202410/19, 07/05/2023, 06/28/2023, Additional history exists Adult [...] this encounter Medical Devices Implanted Type Area Booster Operator Device Identifier Shelf Expiration Date Model / Serial / Lot Mesh Preshaped Large - [id number] Implanted:Qty : 1 on 12/31/2014 by Jj Weston MD at OR [facility] Right: Groin CR BARD : DAVOL 09/19/2018 [id number] / / [id number] Suture [place] Dbl Load 4.75mm - [id number] Implanted:Qty : 1 on 03/15/2020 by Kar Berry DO at OR [facility] Right: Shoulder [employer] 12/18/2021 AR-[id number]- 2 / / [id number] documented as of this encounter Visit Diagnoses [...] Advance Directives occurred with: Patient/Family Care Teams Tricot Knitting Machine Operator Relationship Specialty Start Date End Date Sabino Izaguirre MD [address] [place] [address] [place] [address] PCP - General Family Medicine 01/21/21 documented as of this encounter
[2024-10-31] MEDS ORDERED: POLYETHYLENE (MIRALAX) 17 GM PACK PO PRN (18:53)
[2024-10-31] MEDS ORDERED: ACETAMINOPHEN 325 MG TAB PO PRN (18:53)
[2024-10-31] MEDS ORDERED: NITROGLYCERIN SL 0.4 MG/TAB TAB SL PRN (18:53)
[2024-10-31] MEDS ORDERED: MAGNESIUM HYDROXIDE SUSP 30 ML UDC PO PRN (18:53)
[2024-10-31] MEDS: OSELTAMIVIR PHOSPHATE SUSP 30 MG/5 ML UDP PO SCH (20:30)
[2024-10-31] MEDS: ROSUVASTATIN CALCIUM 20 MG TAB PO SCH (20:30)
[2024-10-31] MEDS: HEPARIN SOD 5,000 UNIT/0.5 ML VIAL SQ SCH (20:30)
[2024-10-31] MEDS: METOPROLOL SUCC 25MG EXT REL TAB PO SCH (20:31)
[2024-10-31] MEDS: CETIRIZINE HCL 10 MG TABLET PO SCH (20:32)
[2024-10-31] MEDS: GABAPENTIN 100 MG CAP PO SCH (20:32)
[2024-10-31 20:37] LABS: Adenovirus PCR Not Detected (NotDetected); Bordetella parapertussis PCR Not Detected (NotDetected); Bordetella pertussis PCR Not Detected (NotDetected); Chlamydia pneumoniae PCR Not Detected (NotDetected); Coronavirus 229E PCR Not Detected (NotDetected); Coronavirus CoV-2 (COVID19)PCR Not Detected (NotDetected); Coronavirus HKU1 PCR Not Detected (NotDetected); Coronavirus NL63 PCR Not Detected (NotDetected); Coronavirus OC43PCR Not Detected (NotDetected); Human Metapneumovirus PCR Not Detected (NotDetected); Influenza A (H3) PCR DETECTED (NotDetected); Influenza B PCR Not Detected (NotDetected); Mycoplasma pneumoniae PCR Not Detected (NotDetected); Parainfluenza Virus 1 PCR Not Detected (NotDetected); Parainfluenza Virus 2 PCR Not Detected (NotDetected); Parainfluenza Virus 3 PCR Not Detected (NotDetected); Parainfluenza Virus 4 PCR Not Detected (NotDetected); Respiratory Syncytial VirusPCR Not Detected (NotDetected); Rhinovirus/Enterovirus PCR Not Detected (NotDetected)
[2024-10-31] MEDS: MELATONIN 3 MG TAB PO PRN (21:35)
--- NOTE | 2024-11-01 06:03 | Electrocardiogram Report ---
Test Reason : Blood Pressure : */* mmHG Vent. Rate : 55 BPM Atrial Rate : 55 BPM P-R Int : 180 ms QRS Dur : 94 ms QT Int : 450 ms P-R-T Axes : 19 -12 54 degrees QTcB Int : 430 ms Sinus bradycardia Minimal voltage criteria for LVH, may be normal variant ( R in aVL ) Borderline ECG When compared with ECG of 03-Feb-2024 11:55, No significant change was found Confirmed by Corey Mchugh ([id number]) on 11/01/2024 6:03:14 AM Referred By: REFERRED SELF Confirmed By: Corey Mchugh
[2024-11-01 07:14] LABS: Hematocrit (blood only) 38.9 % (42.0-52.0); Hemoglobin 13.4 g/dl (14.0-18.0); Mean Corpuscular Hgb Conc 34.4 g/dL (32.0-36.0); Mean Corpuscular Volume 87.2 fL (80.0-100.0); Mean Platelet Volume 10.5 fL (9.4-12.4); Platelet Count 179 K/uL (130-400); RDW Coefficient of Variation 13.7 % (11.5-14.5); RDW Standard Deviation 44.4 fL (36.4-46.3); Red Blood Count 4.46 M/uL (4.70-6.10); White Blood Count 7.54 K/ul (4.8-10.8)
[2024-11-01 07:35] LABS: BUN Creatinine Ratio 16.7 (10-20); Calcium 8.8 mg/dl (8.6-10.3); Creatinine Clr Calc Pharmacy 60.8 ml/min; Magnesium 1.8 mg/dl (1.7-2.4); Phosphorus 2.7 mg/dl (2.5-4.9); Potassium 4.2 mmol/L (3.5-5.1)
[2024-11-01 07:59] VITALS: RESP 20
[2024-11-01] MEDS ORDERED: REGADENOSON 0.4 MG/5 ML SYR IV ONE (08:04)
[2024-11-01] MEDS: predniSONE 5 MG TAB PO SCH (08:24)
[2024-11-01] MEDS: CLOPIDOGREL BISULFATE 75 MG TAB PO SCH (08:24)
[2024-11-01] MEDS: ASPIRIN 81 MG ECTAB PO SCH (08:24)
[2024-11-01] MEDS: LOSARTAN POTASSIUM 50 MG TAB PO SCH (08:24)
[2024-11-01] MEDS: METOPROLOL SUCC 25MG EXT REL TAB PO SCH (08:24)
[2024-11-01] MEDS: PANTOprazole 40 MG TAB PO SCH (08:24)
[2024-11-01] MEDS: FAMOTIDINE 20 MG TAB PO SCH (08:24)
[2024-11-01] MEDS: MULTIVITAMIN TAB PO SCH (08:25)
[2024-11-01] MEDS: DOCUSATE SODIUM 100 MG CAP PO SCH (08:28)
--- NOTE | 2024-11-01 11:18 | Cardiology Consultation ---
Date of Consultation November 01, 2024 Assessment & Plan (1) Chest pain: (2) Influenza: (3) Polymyalgia rheumatica: Plan Cardiac workup thus far reassuring with negative high sensitive troponin x 6 measurements. No concerning ischemic changes on EKG. No recurrence of discom fort. Resting echocardiogram without concerning findings. Overall, it appears patient's most significant issue is his ongoing symptoms including cough and chest wall soreness related to his influenza. He is not wheezing. Discussed options such as proceed with nuclear stress test versus ongoing observation with patient. Through process of shared decision making, patient I agree that the yield of stress testing at this point is low and that his workup thus far is reassuring. No further cardiac testing felt to be indicated. Patient is on chronic prednisone for polymyalgia rheumatica, consider a short pulse of stress dose steroids given his acute illness. Continue chronic outpatient cardiac medications including aspirin, clopidogrel, losartan, metoprolol, rosuvastatin. Agree with subcutaneous heparin for DVT prophylaxis. Patient stable for discharge from a cardiac perspective. History of Present Illness Attending Physician: Charbel Burnette MD History of Present Illness Enzo Shaw is a 68 year old male seen in cardiology consultation per the [facility] of Dasha Lima PA-C for the evaluation of chest pain. Patient notes that since his most recent hospital stay in Jan, 2024 he has been feeling well from a cardiology perspective. He has been performing physical chores such as splitting carrying wood with no anginal symptoms. 6 days ago he developed symptoms of a viral respiratory illness and tested positive for influenza A. He has already completed a course of influenza but has had ongoing issues with cough and restlessness. Yesterday at about 8:30 AM while preparing his breakfast meal he had onset of acute acute chest discomfort with heavy perspiration and was concerned that it was angina. He presented to the emergency department. He has since had 6 high- sensitivity troponin levels that are all within normal limits. EKG performed on presentation again today without concerning repolarization abnormalities. He has also had a resting echocardiogram performed this morning with normal left ventricular wall motion, no regional wall motion abnormalities, and normal LVEF in the range of 55 to 60%. At present he feels well without any symptoms suggestive angina, chest notes ongoing generalized illness related to influenza with fatigue and cough. In Jan, 2024 the patient was admitted with arm/shoulder discomfort that was felt to be somewhat atypical in character for angina. Dobutamine stress echocardiogram was negative for inducible ischemia at that time. Cardiac Problems: 1.CAD: status post stent to the left circumflex at [facility] in 2004. 2.-recurrent chest pain in 2012 with abnormal stress testing, leading to PCI of the LAD with drug-eluting stent 3.-abnormal nuclear stress test 09/11/2013 leading to repeat cardiac catheterization with patent mid LAD stent and mild in stent restenosis. The distal LAD was noted to have a stenosis in a calcified area of small caliber tortuous vessel. 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 Allergies Allergy/AdvReac Type Severity Reaction Status Date / Time tetracycline Allergy Mild RASH Verified 10/31/24 14:23 codeine Allergy Unknown Unknown Verified 10/31/24 14:23 shrimp AdvReac Mild NECK Verified 10/31/24 14:23 SWELLS IF HE EATS ALOT OF THEM enalapril AdvReac Cough Verified 10/31/24 14:23 Home Medications Medication Instructions Recorded Confirmed Type albuterol sulfate 90 mcg/actuation 2 puff inhalation Q4H PRN 06/18/23 10/31/24 History aerosol inhaler Shortness Of Breath Or Wheezing amlodipine 5 mg tablet 5 mg PO BID 06/18/23 10/31/24 History aspirin 81 mg tablet,delayed 81 mg PO DAILY 06/18/23 10/31/24 History release clopidogrel 75 mg tablet 75 mg PO DAILY 06/18/23 10/31/24 History famotidine 20 mg tablet 20 mg PO DAILY 06/18/23 10/31/24 History gabapentin 100 mg capsule 100 mg PO TID 06/18/23 10/31/24 History hydrochlorothiazide 25 mg tablet 25 mg PO DAILY 06/18/23 10/31/24 History losartan 100 mg tablet 100 mg PO DAILY 06/18/23 10/31/24 History metoprolol succinate 25 mg 25 mg PO QAM 06/18/23 10/31/24 History tablet,extended release 24 hr pantoprazole 40 mg tablet,delayed 40 mg PO DAILY 06/18/23 10/31/24 History release rosuvastatin 40 mg tablet 40 mg PO HS 06/18/23 10/31/24 History torsemide 5 mg tablet 5 mg PO DAILY 06/18/23 10/31/24 History cetirizine 10 mg tablet (Zyrtec) 10 mg PO HS ##0 02/03/24 10/31/24 History docusate sodium 100 mg capsule 100 mg PO DAILY ##0 02/03/24 10/31/24 History nitroglycerin 0.4 mg sublingual 0.4 mg PO UD PRN Chest Pain ##0 02/03/24 10/31/24 History tablet acetaminophen 500 mg tablet 500 mg PO Q6H PRN Pain 10/31/24 10/31/24 History ascorbic acid (vitamin C) 500 mg 500 mg PO DAILY 10/31/24 10/31/24 History tablet (Vitamin C) metoprolol succinate 25 mg 12.5 mg PO HS 10/31/24 10/31/24 History tablet,extended release 24 hr (Toprol XL) multivitamin 1 tab PO DAILY 10/31/24 10/31/24 History oseltamivir 30 mg capsule 30 mg PO BID 10/31/24 10/31/24 History prednisone 5 mg tablet 5 mg PO DAILY 10/31/24 10/31/24 History vitamin E 268 mg (400 unit) capsule 268 mg PO DAILY 10/31/24 10/31/24 History Patient History Medical History Hyperlipidemia Hypertension Coronary artery disease Surgical History History of coronary artery stent placement Family History Other Family history non-contributory Social History Smoking Status: Never smoker Second Hand Exposure: No; Do You Dip or Chew Tobacco: No; Hx Alcohol Use: Yes Alcohol type: beer and wine Hx Substance Use: No Preferred Language: Marshallese Communication Ability: Effective Image Editor Required: No Beliefs That Will Affect Care: None Current Living Situation: Spouse Current Living Situation Comment: lives at home with spouse and neice Other Information That Helps Us Care for You: No Feels Safe at Home: Yes Safety Concerns: Feels Safe At This Time Assistive Devices: None Review of Systems Review of Systems: All systems reviewed & are unremarkable except as noted in HPI & below Physical Exam Physical Exam: Temp Pulse Resp BP Pulse Ox O2 Del Method 36.7 C 57 L 20 145/69 H 96 Room Air 11/01/24 07:59 11/01/24 07:59 11/01/24 07:59 11/01/24 07:59 11/01/24 07:59 11/01/24 07:59 General: No acute distress, ill in appearance Eyes: conjunctiva are pink and non-injected, sclera clear Neck: normal jugular venous pulse, no hepatojugular reflux Chest: normal shape and normal respiratory effort -No chest wall tenderness on palpation Lungs: clear to auscultation and percussion Cardiac Exam: - regular heart sounds, no murmurs, rubs, or gallops, no jugular venous distention Abdomen: abdomen soft, non-tender, no abnormal masses and no hepatosplenomegaly Musculoskeletal: no gait disturbance, no weakness Extremities: no edema and no cyanosis Neuro:awake, conversant, follows commands, no focal motor deficits Psych: appropriate affect and insight. Results & Data Vital Signs (Past 12 Hours) Vital Signs Temp Pulse Pulse Resp BP Pulse Ox O2 Del Method 11/01/24 07:59 36.7 C 57 L 20 145/69 H 96 Room Air 11/01/24 07:27 54 L 11/01/24 02:15 36.7 C 55 L 18 137/77 95 Room Air Laboratory Results Cardiac Enzymes 10/31/24 10/31/24 10/31/24 Range/Units 10:17 14:05 19:15 AST 18 (13-39) U/L Troponin I High Sens 5.3 4.9 4.7 (0-20) pg/ml 10/31/24 11/01/24 11/01/24 Range/Units 22:46 03:35 06:54 AST (13-39) U/L Troponin I High Sens 5.0 5.5 4.8 (0-20) pg/ml CBC 11/01/24 Range/Units 06:54 WBC 7.54 (4.8-10.8) K/ul RBC 4.46 L (4.70-6.10) M/uL Hgb 13.4 L (14.0-18.0) g/dl Hct 38.9 L (42.0-52.0) % Plt Count 179 (130-400) K/uL Comprehensive Metabolic Panel 10/31/24 11/01/24 Range/Units 10:17 06:54 Sodium 138 139 (136-145) mmol/L Potassium 3.0 L 4.2 D (3.5-5.1) mmol/L Chloride 99 103 (98-107) mmol/L Carbon Dioxide 28 29 (21-32) mmol/L BUN 34 H 22 (6-23) mg/dl Creatinine 1.31 1.32 (0.6-1.4) mg/dl Glucose 100 H 94 (70-99(Fasting)) mg/dl Calcium 8.9 8.8 (8.6-10.3) mg/dl AST 18 (13-39) U/L ALT 28 (7-52) U/L Alkaline Phosphatase 47 (34-104) U/L Total Protein 6.8 (6.0-8.3) gm/dl Albumin 4.0 (3.4-5.0) gm/dl Intake and Output 10/31/24 11/01/24 11/01/24 22:59 06:59 14:59 Intake Total 200 / 200 Balance 200 / 200 Intake: Oral 200 / 200 Other: Weight 95.8 kg 96.9 kg Weight Measurement Method Standing Scale Diagnostic Findings EKG performed 11/01/2024 at 6: 16 a.m. and interpret independently: Sinus bradycardia 56 bpm, artifact noted in lead V2, otherwise normal tracing. Unchanged compared to 10/31/2024
[2024-11-01] MEDS ORDERED: predniSONE 20 MG TAB PO SCH (11:30)
--- NOTE | 2024-11-01 11:34 | Discharge Summary ---
Date of Service November 01, 2024 Admission HPI Per Admitting Provider Enzo Shaw is a 68y/o M with PMHx significant for HLD, HTN, CAD s/p PCI with SERENITY to left circumflex in 2004 and PCI with SERENITY to LAD in 2012, dilatation of proximal ascending thoracic aorta, GERD, CKD stage IIIa, polymyalgia rheumatica rheumatica on chronic prednisone therapy, chronic right shoulder pain, cervical DDD and chronic neck pain who presented to the ED via EMS for evaluation of midsternal chest pain. History obtained from the patient, family at bedside and associated chart review. Patient seen at bedside with Dr. Cehster. Patient with acute onset of midsternal chest pain and pressure which began this morning prior to eating breakfast. Notable diaphoresis and lightheadedness with this chest pain to the point where he felt like he was going to pass out. Notes chest pain is currently resolved s/p 2 sublingual nitroglycerin, 2 nitroglycerin sprays and 324mg ASA en route to ED via EMS. Patient endorses significant family history of cardiac events. Notes his father of an SD at 57y/o and his mother had 2 or 3 MIs before passing away at age 76. Has 3 brothers. Oldest brother of an SD at age 78 - this brother had a prior SD in his late 50s as well. Notes his one other brother had to have a pacemaker placed in his 40s and the other one had an SD in his 50s. Patient had PCI with SERENITY to left circumflex in 2004 and PCI with SERENITY to LAD in 2012 per chart review. He reports being diagnosed with influenza A about 5 days ago and is currently being treated with Tamiflu - with his last dose being this evening. He endorses a productive cough of yellowish sputum however this has been improving. No recorded fevers. Denies any SOB. No further chest pain episodes in the ED. Patient with no prior history of SD. Follows with Dr. Hanley in the outpatient setting. Patient previously admitted back in January 2024. Underwent dobutamine stress echocardiogram which was negative for inducible ischemia. EKG unremarkable in ED. High-sensitivity troponin x 2 negative. Noted hypokalemia with K+ of 3 on admission but otherwise labs were grossly unremarkable. Admission Exam Per Admitting Provider GENERAL: Alert and oriented x3. NAD, on RA. HEENT: No pallor, no icterus. Pupils equal, round and reactive to light. Oral mucosa moist. NECK: No JVD, no neck masses. HEART: S1 and S2 heard. Regular rate and rhythm. No murmur, no gallop. RESPIRATORY SYSTEM: Normal AP diameter. No accessory muscle use. No wheezing, no crackles. ABDOMEN: Soft, bowel sounds present, nontender, no distention. CENTRAL NERVOUS SYSTEM: No facial droop. Speech is clear. Obeys simple commands. Moves extremities. EXTREMITIES: No edema, no erythema seen. Principal Diagnosis Chest pain, hx of CAD Influenza Discharge Exam GENERAL: Alert and oriented x3. NAD, on RA. HEENT: NC/AT. Pupils equal, round and reactive to light. Oral mucosa moist. NECK: supple. No JVD, no neck masses. HEART: Regular rate and rhythm. No murmur RESPIRATORY: No accessory muscle use. No wheezing, no crackles. ABDOMEN: Soft, bowel sounds present, nontender, no distention. NEURO: Awake, alert, answers appropriately. No facial droop. Speech is clear. Obeys simple commands. Moves extremities. EXTREMITIES: No edema, no erythema seen. SKIN: warm, dry Discharge Data Allergies Allergy/AdvReac Type Severity Reaction Status Date / Time tetracycline Allergy Mild RASH Verified 10/31/24 14:23 codeine Allergy Unknown Unknown Verified 10/31/24 14:23 shrimp AdvReac Mild NECK Verified 10/31/24 14:23 SWELLS IF HE EATS ALOT OF THEM enalapril AdvReac Cough Verified 10/31/24 14:23 Consultations 10/31/24 18:53 Consult Cardiology Routine Hospital Course (1) Chest pain: Mr. Shaw is a 68y/o M with PMHx significant for HLD, HTN, CAD s/p PCI with SERENITY to left circumflex in 2004 and PCI with SERENITY to LAD in 2012, dilatation of proximal ascending thoracic aorta, GERD, CKD stage IIIa, polymyalgia rheumatica on chronic prednisone therapy, chronic right shoulder pain, cervical DDD and chronic neck pain who presented to the ED via EMS for evaluation of midsternal chest pain. Chest pain is resolved in ED s/p 2 sublingual nitroglycerin, 2 nitroglycerin sprays and 324mg ASA en route to ED via EMS. EKG unremarkable in ED. High-sensitivity troponin x 2 negative so far. Telemetry monitoring. Cardiology consulted - Cardiac workup thus far reassuring with negative high sensitive troponin x 6 measurements. No concerning ischemic changes on EKG. No recurrence of discomfort. Resting echocardiogram without concerning findings. Discussed options such as proceed with nuclear stress test versus ongoing observation with patient. Through process of shared decision making, patient I agree that the yield of stress testing at this point is low and that his workup thus far is reassuring. No further cardiac testing felt to be indicated. Patient is on chronic prednisone for polymyalgia rheumatica, consider a short pulse of stress dose steroids given his acute illness. Continue chronic outpatient cardiac medications including aspirin, clopidogrel, losartan, metoprolol, rosuvastatin. Patient stable for discharge from a cardiac perspective. (2) Coronary artery disease: Patient had PCI with SERENITY to left circumflex in 2004 and PCI with SERENITY to LAD in 2012. Continue rosuvastatin 40mg QHS. Patient previously admitted back in January 2024 - underwent dobutamine stress echocardiogram which was negative for inducible ischemia. Continue DAPT. Cardiology consulted, as above (3) Influenza: Diagnosed with influenza A about 5 days ago and is currently being treated with Tamiflu - with his last dose being the evening of admission. Endorses a productive cough of yellowish sputum however this has been improving. No recorded fevers. Denies any SOB. Will give short steroid taper on DC. (4) Hypokalemia: Replete and monitor (5) HTN (hypertension): Held home HCTZ 25mg daily, amlodipine 5mg BID and torsemide 5mg daily on admission. Will resume on DC. Continue losartan and metoprolol succinate (6) Polymyalgia rheumatica: Follows with Dr. Salas of [facility]. Currently on extended prednisone taper course as directed by rheumatology. Goal is to wean off of prednisone entirely in the future. Now on 5mg prednisone daily -> will start short taper on Dc. Can also continue home gabapentin 100mg TID. (7) CKD stage 3a, GFR 45-59 ml/min: Cr stable on admission. Baseline Cr around 1.3-1.4 per chart review. Continue to closely monitor renal function and avoid nephrotoxins as able. Total Time Total Time Spent Total Time Spent (In Minutes): 40 Discharge Plan Discharge Items Patient Disposition: Home - Self-Care Reason For Visit: ACS R/O Discharge Diagnosis: Chest pain, hx of CAD Influenza Activity: Per Instructions section Non-emergency contact: Primary Care Provider and Special Investigator Call non-emergency contact if: you have any medication questions and your symptoms worsen Follow-up/Referrals: Sabino Izaguirre MD [Primary Care Provider] - (Date & Time 11/08/2024 11:20 AM Provider: Sabino Izaguirre MD Family Medicine [facility] ) Diet: Heart Healthy Addtl Attending Provider Instructions: Follow up with your primary care doctor and link cutter. Take prednisone 40 mg for next 3 days, then take 20 mg for next 2 days, then go back to your usual 5 mg daily. Continue taking guaifenesin. Use incentive spirometer and flutter valve. Pending Studies at Discharge: No Stand-Alone Forms: [facility] [employer], Smoking Cessation Medications and DC Order Prescriptions: New prednisone 20 mg Tablet 20 mg PO UD Qty: 8 0RF Rx Instructions: Take 2 tabs for 3 days, then take 1 tab for 2 days guaifenesin 600 mg tablet extended release 12hr 600 mg PO BID Qty: 10 0RF Continued clopidogrel 75 mg tablet 75 mg PO DAILY Rx Instructions: Last filled 06/2024 x90 day supply amlodipine 5 mg tablet 5 mg PO BID aspirin 81 mg Tablet,Delayed Release (Dr/Ec) 81 mg PO DAILY famotidine 20 mg tablet 20 mg PO DAILY Rx Instructions: Last filled 06/2024 x day supply torsemide 5 mg tablet 5 mg PO DAILY pantoprazole 40 mg tablet,delayed release (DR/EC) 40 mg PO DAILY hydrochlorothiazide 25 mg tablet 25 mg PO DAILY gabapentin 100 mg capsule 100 mg PO TID Rx Instructions: Last filled 06/2024 x90 day supply metoprolol succinate 25 mg tablet extended release 24 hr 25 mg PO QAM albuterol sulfate 90 mcg/actuation HFA aerosol inhaler 2 puff INHALATION Q4H PRN (Reason: Shortness Of Breath Or Wheezing) losartan 100 mg tablet 100 mg PO DAILY rosuvastatin 40 mg tablet 40 mg PO HS cetirizine [Zyrtec] 10 mg Tablet 10 mg PO HS Qty: 0 nitroglycerin 0.4 mg Tablet, Sublingual 0.4 mg PO UD PRN (Reason: Chest Pain) Qty: 0 docusate sodium 100 mg Capsule 100 mg PO DAILY Qty: 0 multivitamin Tablet 1 tab PO DAILY acetaminophen [Tylenol Ex Str Rapid Release] 500 mg Tablet 500 mg PO Q6H PRN (Reason: Pain) ascorbic acid (vitamin C) [Vitamin C] 500 mg Tablet 500 mg PO DAILY vitamin E 268 mg (400 unit) Capsule 268 mg PO DAILY oseltamivir 30 mg capsule 30 mg PO BID Rx Instructions: Start Date 10/26/24 x5 day supply. Per patient today (10/31/24) is his last day taking this medication metoprolol succinate [Toprol XL] 25 mg Tablet Extended Release 24 Hr 12.5 mg PO HS Held prednisone 5 mg tablet 5 mg PO DAILY Hold Instructions: Resume on 11/07/24. Discharge Orders: Discharge Order (Routine); Ordered 11/01/24 Ordered By: Charbel Burnette Admission Data Admit Date/Time: 10/31/24 16:37 Attending Provider: Charbel Burnette Admit Provider: Balaji Chester Primary Care Provider: Sabino Izaguirre Other Providers: Isrrael Hanley; Balaji Chester
[2024-11-01 11:52] VITALS: BP 149/88; PULSE 71; TEMP 98.4; O2SAT 94
--- NOTE | 2024-11-01 12:53 | Electrocardiogram Report ---
Test Reason : Blood Pressure : */* mmHG Vent. Rate : 56 BPM Atrial Rate : 56 BPM P-R Int : 174 ms QRS Dur : 86 ms QT Int : 420 ms P-R-T Axes : 18 -16 4 degrees QTcB Int : 405 ms Sinus bradycardia Minimal voltage criteria for LVH, may be normal variant Borderline ECG When compared with ECG of 31-Oct-2024 09:58, T wave inversion now evident in Inferior leads Confirmed by Pedro Martinez [id number]) on 11/01/2024 12:52:53 PM Referred By: REFERRED SELF Confirmed By: Pedro Martinez
--- OUTSIDE RECORDS SUMMARY | 2024-11-01 18:36 | External Medical Summary | Summary of Care ---
Author Name Unknown Organization [facility] Address [address] [place] [address] Phone [phone] Care Team Providers Care Professor Of Psychiatry Name Role Phone Milo Whittington MD Primary Care Provide r Reason for Referral * Medication Prior Authorization - Pending Review Specialty Diagnoses / Procedures Referred By Contac t Referred To Contact Diagnoses Influenza A Milo Whittington MD [address] [place] [address] [place] [address] Phone: tel: fax: Referral ID Status Reason Start Date Expiration Date V isits Requested Visits Authorized [id number] Pending Review [phone] Reason for Visit * Reason Onset Date Comments Medication Refill 10/31/2024 Encounter Details Date Type Department Care Team (Late st Contact Info) Description 10/31/2024 Refill Family Medicine [address] [place] [phone] Brook Simmons PA-C [address] [place] [address] [place] [address] Influenza A Allergies Active Allergy Reactions Criticality Noted Date Comments Codeine Other (Please comment) High 11/23/2012 hallucinations Other Reaction(s): nausea Enalapril Maleate Cough 11/12/2014 Morphine Low 11/09/2015 Spironolactone Itching 03/29/2024 Stopped spring 2023; took about 2 wks for itching to resolve documented as of this encounter (statuses as of 11/01/2024) Medications ASPIRIN 81 MG PO TABSIndications: S/P [...] BY MOUTH IN THE MORNING 100 Tablet 10/31/2024 10:47 AM EST 10/17/19 25 026 Active Oseltamivir Phosphate 30 MG Oral Capsule (Tamiflu)Indicat ions:Influenza A Take 1 Capsule by mouth in the morning and 1 Capsule before bedtime. 10 Capsule 10/26/19 25 Active Benzonatate 100 MG Oral CapsuleIndicatio ns:Influenza A Take 1 Capsule by mouth 3 times a day as needed for Cough. 30 Capsule 1 11/01/19 25 Active Benzonatate 100 MG Oral CapsuleIndicatio ns:Influenza A Take 1 Capsule by mouth 3 times a day as needed for Cough. 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 Atherosclerosis of [place] co ronary artery of [place] heart with stable angina pectoris 01/01/2008 S/P angioplasty with stent 06/30/2006 Esophageal reflux 10/29/2005 documented as of this encounter (statuses as of 11/01/2024) Resolved Problems Problem Noted Date Diagnosed Date Resolved Date Prediabetes 04/29/2020 08/03/2024 Overview: Per Prediabetes protocol Cough due to RANDALL inhibitor 11/12/2014 0 01/30/2019 Hyperkalemia 11/12/2014 11/16/2018 Pre-operative cardiovascular examination 09/11/2014 11/12/2014 [employer] Other*[id number] 11/23/2012 10/27/2016 Overview (11/23/2012): Study Title: Genomic Markers for Patients with Cardiovascular Disease Project # [id number] Inclusion Internship: Laine Cadena MD [phone] Abnormal stress echocardiogram 11/17/2012 01/30/2019 Impotence of [...] as of this encounter (statuses as of 11/01/2024) Immunizations Name Administration Dates Next Due COVID-19 mRNA, LNP-s, No Pre serve, 2-Dose Series (10-20 Media) 01/01/2022,06/19/2021,11/25/2020,10/21 COVID-19, MRNA-LNP, 24-25, P R, 30MCG/0.3ML, IM, 12YRS AND ABOVE (10-20 [facility]) 06/05/2024 COVID-19, MRNA-LNP, PF, 30 M [...] No 11/15/2023 Does the household have a [facility] source [facility] income? 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 Thank You, Sushma Orr, [facility] ([facility]) 11/01/2024, 9:03 AM * Telephone Encounter - Milo Whittington MD - 11/01/2024 8:47 AM EST Signed Prescriptions: Disp Refills Benzonatate 100 MG Oral Capsule 30 Cap*1 Sig: Take 1 Capsule by mouth 3 times a day as needed for Cough. Authorizing Provider: MILO WHITTINGTON * Telephone Encounter - Jaz Bell CCMA - 11/01/2024 8:42 AM ESTPending Prescriptions: Disp Refills Benzonatate 100 MG Oral Capsule 30 Cap*1 Sig: Take 1 Capsule by mouth 3 times a day as needed for Cough. * Telephone Encounter - Jaz Bell CCMA - 11/01/2024 8:42 AM EST Did you pend patient's preferred pharmacy and medication before forwarding?yes Pharmacy: [facility] Pending Prescriptions: Disp Refills Benzonatate 100 MG Oral Capsule 30 Cap*1 Sig: Take 1 Capsule by mouth 3 times a day as needed for Cough. Last Visit: 10/25/2024 (in office), Visit date not found (telemedicine) Next Visit: 01/31/2025 If no future appointments scheduled, and last appointment is greater than a year ago, please schedule patient for a follow-up appointment Last date the medication was ordered: 10/26/2024 Is this request for a controlled substance?No Urine Drug Screen:No results found. However, due to the size of the patient record, not all encounters were searched. Please check Results Review for a complete set of results. Patient Phone Numbers Labs: Lab Results Component Value Date/Time CREAT 1.4 (H) 07/03/2024 12:14 PM CREAT 1.34 (A) 07/05/2023 12:00 AM CREAT 1.2 04/22/2020 03:50 PM POTASSIUM 5.5 (H) 07/03/2024 12:14 PM POTASSIUM 4.0 07/05/2023 12:00 AM POTASSIUM 4.2 04/22/2020 03:50 PM TSH 0.67 02/16/2024 01:24 PM TSH 0.70 11/25/2018 01:09 PM LDL 66 10/24/2024 09:44 AM LDL 51 10/03/2018 02:32 PM LDL NOT APPLICABLE 10/03/2018 02:32 PM ALT 17 07/03/2024 12:14 PM ALT 28 04/22/2020 03:50 PM HGBA1C 5.9 (H) 10/16/2024 01:00 PM HGBA1C 5.8 (H) 04/25/2020 09:14 AM * Telephone Encounter - MeiValeri - 10/31/2024 10:09 PM ESTPending Prescriptions: Disp Refills Benzonatate 100 MG Oral Capsule 30 Cap*1 Sig: Take 1 Capsule bymouth 3 times a day as needed for Cough. documented in this encounter Plan of Treatment Upcoming Encounters Date Type Department Care Team (Late st Contact Info) Description 11/17/2024 9:00 AM EST Nurse Only Ancillary [address] [place] [address] Veronica, Nurse [address] [place] [address] 12/04/2024 3:00 PM EDT Office Visit Rheumatology [address] [place] [phone] Tona Cm CRNP [address] [place] [address] [place] [address] 01/16/2025 2:00 PM EDT Office Visit Otolaryngology [facility] [address] [place] [address] Renata Garcia PA-C [address] [place] [address] 01/31/2025 3:20 PM EDT Office Visit Family Medicine [address] [place] [phone] Milo Whittington MD [address] [place] [address] [place] [address] 02/27/2025 11:00 AM EDT Office Visit Cardiology, [facility] [address] [place] [address] Pennie Naranjo CRNP [address] [place] [address] 04/16/2025 2:20 PM EDT Office Visit Nephrology [address] [place] [address] Kriss Mendoza MD [address] [place] [address] Scheduled Procedures Name Priority Associated Diagnoses Date/Ti [...] 024, 10/22/2022, 05/28/2022 CKD HGB USE SMARTSET 89375 07/03/202507/03, 07/03/2024, 10/19/2023, Additional history exists CKD PHOS USE SMARTSET 85973 07/03/2025 07/03/2024, 0 06/11/2023 HbA1c 10/16/2025 10/16/2024, 05/22, 05/28/2022, Additional history exists Colonoscopy 02/27/2029 02/28/2024, 02/18, 06/05/2020, Additional history [...] encounter Medical Devices Implanted Type Area Manager Functional Device Identifier Shelf Expiration Date Model / Serial / Lot Mesh Preshaped Large - [id number] Implanted:Qty : 1 on 12/31/2014 by Jj Weston MD at OR [facility] Right: Groin CR BARD : DAVOL 09/19/2018 [id number] / / [id number] Suture [place] Dbl Load 4.75mm - [id number] Implanted:Qty : 1 on 03/15/2020 by Kar Berry DO at OR [facility] Right: Shoulder [employer] 12/18/2021 [id number]- [id number] / / [id number] documented as of this encounter Visit Diagnoses Diagnosis Influenza A Influenza with other respiratory manifestations documented in this encounter Additional Health Concerns [...] occurred with: Patient/Family Care Teams Professor Of Psychiatry Relationship Specialty Start Date End Date Milo Whittington MD [address] [place] [address] [place] [phone] PCP - General Family Medicine 01/21/21 documented as of this encounter
--- OUTSIDE RECORDS SUMMARY | 2024-11-01 18:36 | External Medical Summary | Summary of Care ---
Author Name Unknown Organization [facility] Address [address] [place] [address] Phone [phone] Care Team Providers Care Cleaner And Trimmer Name Role Phone Milo Whittington MD Primary Care Provide r Reason for Referral * Medication Prior Authorization - Pending Review Specialty Diagnoses / Procedures Referred By Contac t Referred To Contact Diagnoses Influenza A Milo Whittington MD [address] [place] [address] [place] [address] Phone: tel: fax: Referral ID Status Reason Start Date Expiration Date V isits Requested Visits Authorized [id number] Pending Review 999 999 Reason for Visit * Reason Onset Date Comments Medication Refill 10/31/2024 Encounter Details Date Type Department Care Team (Late st Contact Info) Description 10/31/2024 Refill Family Medicine [address] [place] [phone] Brook Simmons PA-C [address] [place] [address] [place] [address] Influenza A Allergies Active [...] Per Prediabetes protocol 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) 08/23/2024 assisted current use [...] Impotence of organic origin 04/18/2008 Atherosclerosis of [place] co ronary artery of [place] heart with stable angina pectoris 01/01/2008 S/P angioplasty with stent 06/30/2006 Esophageal reflux 10/29/2005 documented as of this encounter (statuses as of 11/01/2024) Resolved Problems Problem Noted Date Diagnosed Date Resolved Date Prediabetes 04/29/2020 08/03/2024 Overview: Per Prediabetes protocol Cough due to RANDALL inhibitor 11/12/2014 0 01/30/2019 Hyperkalemia 11/12/2014 11/16/2018 Pre-operative cardiovascular examination 09/11/2014 11/12/2014 [employer] Other*[id number] 11/23/2012 10/27/2016 Overview (11/23/2012): Study Title: Genomic Markers for Patients with Cardiovascular Disease Project # [id number] Mechanic Welder: Laine Cadena MD [phone] Abnormal stress echocardiogram 11/17/2012 01/30/2019 Impotence of [...] mRNA, LNP-s, No Pre serve, 2-Dose Series ([employer]) 01/01/2022,06/19/2021,11/25/2020,10/21 COVID-19, MRNA-LNP, 24-25, P R, 30MCG/0.3ML, IM, 12YRS AND ABOVE ([employer]) 06/05/2024 COVID-19, MRNA-LNP, PF, 30 M CG/0.3 [...] No 11/15/2023 Does the household have a [facility] source of income? 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 Thank You, Sushma Orr, [facility] Service Station Console Operator II [facility] Clinical Pharmacy Services ([facility]) 11/01/2024, [...] preferred pharmacy and medication before forwarding?yes Pharmacy: [facility] Pending Prescriptions: Disp Refills [...] 04/25/2020 09:14 AM * Telephone Encounter - Mei Valeri - 10/31/2024 10:09 PM ESTPending Prescriptions: Disp Refills Benzonatate 100 MG Oral Capsule 30 Cap*1 Sig: Take 1 Capsule by mouth 3 times a day as needed for Cough. documented in this encounter Plan of Treatment Upcoming Encounters Date Type Department Care Team (Late st Contact Info) Description 11/17/2024 9:00 AM EST Nurse Only Ancillary [address] [place] [address] Alissoney, Nurse [address] [place] [address] 12/04/2024 3:00 PM EDT Office Visit Rheumatology [address] [place] [phone] Tona Cm CRNP [address] [place] [address] [place] [address] 01/16/2025 2:00 PM EDT Office Visit Otolaryngology [facility] [address] [place] [address] Renata Garcia PA-C [address] [place] [address] 01/31/2025 3:20 PM EDT Office Visit Family Medicine [address] [place] [phone] Milo Whittington MD [address] [place] [address] [place] [address] 02/27/2025 11:00 AM EDT Office Visit Cardiology, [facility] [address] [place] [address] Pennie Naranjo CRNP [address] [place] [address] 04/16/2025 2:20 PM EDT Office Visit Nephrology [address] [place] [address] Kriss Mendoza MD [address] [place] [address] Scheduled Procedures Name Priority Associated Diagnoses Date/Ti [...] 024, 10/22/2022, 05/28/2022 CKD HGB USE SMARTSET 38422 07/03/202507/03, 07/03/2024, 10/19/2023, Additional history exists CKD PHOS USE SMARTSET 86393 07/03/2025 07/03/2024, 0 06/11/2023 HbA1c 10/16/2025 10/16/2024, [...] this encounter Medical Devices Implanted Type Area Cement Fittings Maker Device Identifier Shelf Expiration Date Model / Serial / Lot Mesh Preshaped Large - [id number] Implanted:Qty : 1 on 12/31/2014 by Jj Weston MD at OR [facility] Right: Groin CR BARD : DAVOL 09/19/2018 [id number] / / [id number] Suture [place] Dbl Load 4.75mm - [id number] Implanted:Qty : 1 on 03/15/2020 by Kar Berry DO at OR [facility] Right: Shoulder [employer] 12/18/2021 AR-[id number]- 2 / / [id number] documented as of this encounter Visit Diagnoses [...] Advance Directives occurred with: Patient/Family Care Teams Cleaner And Trimmer Relationship Specialty Start Date End Date Milo Whittington MD [address] [place] [address] [place] [address] PCP - General Family Medicine 01/21/21 documented as of this encounter
== END 2024-11-01 13:57 | disposition home or self-care (01) ==
LOC: ED 09:57 → 2N 09:57 → SUATTDRO 16:37 → 2N 18:37